=== PATIENT | female | born 1975 | race Caucasian/White ===

== ENCOUNTER 2021-03-05 11:14 | Emergency (ER) | payer BC, SELFPAY ==
[2021-03-05 11:24] VITALS: BP 133/89; PULSE 109; RESP 12; TEMP 36.8; O2SAT 100
--- NOTE | 2021-03-05 11:43 | ED.CHESTPAIN ---
HPI - Chest Pain General Chief Complaint: Chest Pain Stated Complaint: Rib Pain Time Seen by Provider: 03/05/21 11:43 Source: patient and RN notes reviewed Mode of arrival: ambulatory Limitations: no limitations History of Present Illness HPI narrative: Problems a 46-year-old female patient [facility] Patient states she is having rib pain bilaterally which increases with a deep breath. Patient states she had sinus issues and cough for 2 weeks and that has resolved. Patient denies denies any injury to the rib area. Patient denies any chest pain ;denies any shortness of breath. Patient can speak in full sentences. MD complaint: chest pain Related Data Home Medications Medication Instructions Recorded Confirmed amitriptyline 25 mg PO DAILY 03/05/21 03/05/21 buspirone 15 mg PO BID 03/05/21 03/05/21 cyclobenzaprine 10 mg PO TID 03/05/21 03/05/21 furosemide 20 mg PO DAILY 03/05/21 03/05/21 hydrocodone-acetaminophen 1 tablet PO QID PRN 03/05/21 03/05/21 metoprolol succinate 25 mg PO DAILY 03/05/21 03/05/21 topiramate 50 mg PO BID 03/05/21 03/05/21 Allergies Allergy/AdvReac Type Severity Reaction Status Date / Time Penicillins Allergy Unknown Rash Verified 03/05/21 11:24 Review of Systems Review of Systems: CONSTITUTIONAL: Denies body aches, fever, chills, or sweats. EYES: Denies visual changes, redness, or discharge. ENT: Denies rhinorrhea, congestion, sore throat, or otalgia. CARDIOVASCULAR: Denies chest pain, palpitations, or edema. RESPIRATORY: Denies cough or dyspnea. GASTROINTESTINAL: Denies abdominal pain, nausea, vomiting, or diarrhea. GENITOURINARY: Denies dysuria or hematuria. SKIN: Denies rash, itching, or wounds. MUSCULOSKELETAL: Denies back pain, joint pain, or myalgia.+ rib pain NEUROLOGIC: Denies headache, numbness, tingling, or weakness. PSYCH: Denies depression or anxiety. All systems reviewed & are unremarkable except as noted in HPI and below Exam Narrative: GENERAL: Well-appearing, well-nourished, and in no acute distress. HEAD: Normocephalic, atraumatic. EYES: EOMI. No redness or drainage. Conjunctivae normal. ENT: Mucous membranes pink and moist. Nares clear. No rhinorrhea. NECK: Normal AROM. Supple. . CHEST: No respiratory distress. Clear to auscultation; no rub noted. HEART: Regular rate and rhythm. No murmur appreciated. Normal peripheral pulses. MUSCULOSKELETAL: No bony tenderness.; pain with palpation on right axillary line; EXTREMITIES: Normal range of motion. No edema. SKIN: Warm, dry, no rash. Capillary refill normal. Normal skin turgor. NEURO: No focal deficits. Alert and oriented x3. Gait steady. PSYCH: Normal affect. No signs of depression or anxiety. Course Vital Signs Vital signs: Vital Signs Temperature 36.8 C 03/05/21 11:24 Pulse Rate 109 H 03/05/21 11:24 Respiratory Rate 12 03/05/21 11:24 Blood Pressure 133/89 03/05/21 11:24 Pulse Oximetry 100 03/05/21 11:24 Temperature 36.8 C 03/05/21 11:24 Pulse Rate 109 H 03/05/21 11:24 Respiratory Rate 12 03/05/21 11:24 Blood Pressure 133/89 03/05/21 11:24 Pulse Oximetry 100 03/05/21 11:24 Reviewed MDM - Chest Pain MDM Narrative Medical decision making narrative: Patient has pain with palpation. Patient has pain with deep inspiration. Lungs are completely clear. Patient patient is afebrile. Patient will be treated for costochondritis with Naprosyn 500 mg twice daily. Patient will also be giving a steroid for 7 days. Patient was agreeable to this plan. Patient was educated to follow-up with her primary care physician for increasing pain in 3 to 5 days. Go to the ER emergently for severe chest pain or any other issues Differential Diagnosis Differential diagnosis: Likely fracture of rib, atypical chest pain and costochondritis Medical Records Data Attestation: I reviewed the patient's medical records. Critical Care Time Critical Care Time Critical Care T
== END 2021-03-05 11:54 | disposition home or self-care (01) ==
PROVIDERS: Emergency Provider Nurse Practitioner Family; PCP Family Medicine
DX: M94.0 Chondrocostal junction syndrome [Tietze] (principal)
CPT/HCPCS: 99213; G0463

== ENCOUNTER 2021-07-31 08:08 | Emergency (ER) | payer BC, SELFPAY ==
[2021-07-31] VITALS (8 sets, daily range): BP systolic 116–143; BP diastolic 73–100; PULSE 91–128; RESP 14–26; TEMP 36.7; O2SAT 92–100
--- NOTE | ~2021-07-31 | XR_ITS ---
EXAMINATION: XR chest 2V DATE: 07/31/2021 08:38 INDICATION: Shortness of breath and cough. Chest tightness. TECHNIQUE: Frontal and lateral views of the chest were obtained. COMPARISON: Chest 2 views 04/23/2018, CT abdomen and pelvis 04/19/2018 FINDINGS: The chest demonstrates clear lungs without pneumonia, pleural effusion, or pneumothorax. Th e heart size is normal. There are old healed right rib fractures. IMPRESSION: 1. No acute cardiopulmonary disease. Reviewed, dictated and finalized at location A.
--- NOTE | 2021-07-31 08:25 | ECG_ITS ---
Measurements Intervals [place] Rate: 111 P: 85 IA: 172 QRS: 78 QRSD: 69 T: 75 QT: 315 QTc: 429 Interpretive Statements SINUS TACHYCARDIA LOW QRS VOLTAGE [QRS DEFLECTION < 0.5/1.0 mV IN LIMB/CHEST LEADS] NONSPECIFIC T-WAVE ABNORMALITY ABNORMAL ECG NO PREVIOUS ECG AVAILABLE FOR COMPARISON Electronically Signed On 07-31-2021 11:22:34 CDT by Pedro Biggs M.D.
--- NOTE | 2021-07-31 08:36 | ED.SOB ---
HPI - SOB/Dyspnea General Chief Complaint: Shortness of Breath/Dyspnea Stated Complaint: SOB Time Seen by Provider: 07/31/21 08:35 Source: patient and family Mode of arrival: ambulatory Limitations: no limitations History of Present Illness HPI Narrative: Patient is 46 years old white female presents with shortness of breath and a productive cough of clear sputum started last night. History of seasonal allergy. Patient on [id number] medication without any improvement. Patient denies any fever, chills, nausea, vomiting, back pain or chest pain. Related Data Home Medications Medication Instructions Recorded Confirmed amitriptyline 25 mg PO DAILY 03/05/21 03/05/21 furosemide 20 mg PO DAILY 03/05/21 03/05/21 hydrocodone-acetaminophen 1 tablet PO QID PRN 03/05/21 03/05/21 metoprolol succinate 25 mg PO DAILY 03/05/21 03/05/21 topiramate 50 mg PO BID 03/05/21 03/05/21 Allergies Allergy/AdvReac Type Severity Reaction Status Date / Time Penicillins Allergy Unknown Rash Verified 07/31/21 08:23 Review of Systems Review of Systems: CONSTITUTIONAL: Denies fever, chills, or sweats. EYES: Denies visual changes, redness, or discharge. ENT: Denies rhinorrhea, congestion, sore throat, or otalgia. CARDIOVASCULAR: Denies chest pain, palpitations, or edema. RESPIRATORY: Productive cough of clear sputum and shortness of breath GASTROINTESTINAL: Denies abdominal pain, nausea, vomiting, or diarrhea. GENITOURINARY: Denies dysuria or hematuria. SKIN: Denies rash or itching. MUSCULOSKELETAL: Denies back pain, joint pain, or myalgia. NEUROLOGIC: Denies headache, numbness, or weakness. PSYCHIATRIC: Denies anxiety or depression. Exam Narrative: General appearance: Well-developed, well-nourished Skin: Normal color Head: Normocephalic, nontraumatic Eyes: Clear conjunctiva ENT: Oropharynx normal, ears normal, nose normal Neck: Supple, nontender Chest and respiratory: Slight diminution of air entry bilaterally, few scattered wheezing Heart: Regular rate/rhythm Abdomen: Soft, nontender, no organomegaly, quiet bowel sounds Vascular: Normal peripheral pulses, normal capillary refill. Musculoskeletal: Normal range of motion, nontender back Neurologic: Alert and oriented ?3, RISK CONTROL DIRECTOR is normal as tested, no gross motor deficit Course Course Emergency Course: Improving Vital Signs Vital signs: Vital Signs Pulse Rate 128 H 07/31/21 08:10 Respiratory Rate 26 H 07/31/21 08:10 Pulse Oximetry 92 07/31/21 08:10 Temperature 36.7 C 07/31/21 08:17 Pulse Rate 91 07/31/21 09:52 Respiratory Rate 14 07/31/21 09:52 Blood Pressure 143/100 H 07/31/21 08:17 Pulse Oximetry 100 07/31/21 08:50 MDM - SOB/Dyspnea MDM Narrative Medical decision making narrative: Seasonal allergies, asthma are my concern. Differential Diagnosis Differential diagnosis: Likely asthma with exacerbation Lab Data Result diagrams: 07/31/21 09:10 07/31/21 09:10 Labs: Lab Results 07/31/21 07/31/21 07/31/21 Range/Units 09:10 09:10 09:10 WBC 6.3 (4.5-10.0) K/mm3 RBC 4.03 L (4.2-5.4) M/mm3 Hgb 13.6 (12.0-15.0) g/dL Hct 41.1 (37.0-47.0) % MCV 102.0 H (80-100) fl MCH 33.7 (26-34) pg MCHC 33.1 (32-36) g/dl RDW 13.1 (11.5-14.5) % Plt Count 275 (150-375) k/mm3 MPV 9.0 (7.4-10.4) fl Immature Gran % (Auto) 0.5 (0-0.5) % Neut % (Auto) 76.7 H (45.5-73.1) % Lymph % (Auto) 11.1 L (18.3-44.2) % [place] % (Auto) 8.6 H (2.6-8.5) % Eos % (Auto) 2.1 (0-4.4) % Baso % (Auto) 1.0 (0.2-1.2) % Lymph # (Auto) 0.70 L (0.9-3.2) K/mm3 [place] # (Auto) 0.5 (0.1-0.6) K/mm3 Eos # (Aut
[2021-07-31] MEDS: IPRATROPIUM BR 0.02% INH SOLN 0.5 MG/2.5 ML VIAL INHALATION (08:57)
[2021-07-31] MEDS: ALBUTEROL SULFATE NEB 2.5 MG/3 ML INH 1.25 MG INHALATION (08:58)
[2021-07-31 09:24] LABS: Basophils Absolute Auto 0.1 K/mm3 (0.0-0.1); Eosinophils Absolute Auto 0.1 K/mm3 (0-0.3); Eosinophils Percent Auto 2.1 % (0-4.4); Hematocrit 41.1 % (37.0-47.0); Hemoglobin 13.6 g/dL (12.0-15.0); Immature Granulocyte Absolute 0.03 K/mm3 (0.00-0.031); Immature Granulocyte Percent A 0.5 % (0-0.5); Lymphocytes Percent Auto 11.1 % (18.3-44.2); Mean Corpuscular HGB Conc 33.1 g/dl (32-36); Mean Corpuscular Hemoglobin 33.7 pg (26-34); Monocytes Absolute Auto 0.5 K/mm3 (0.1-0.6); Monocytes Percent Auto 8.6 % (2.6-8.5); Neutrophils Absolute Auto 4.8 K/mm3 (1.3-6.7); Neutrophils Percent Auto 76.7 % (45.5-73.1); Platelet Count Result 275 k/mm3 (150-375); Red Blood Count 4.03 M/mm3 (4.2-5.4); Red Cell Distribution Width 13.1 % (11.5-14.5); White Blood Count 6.3 K/mm3 (4.5-10.0)
[2021-07-31 09:36] LABS: Alanine Aminotransferase 9 U/L (4-35); Albumin Level 4.2 g/dL (3.5-5.1); Alkaline Phosphatase 93 U/L (38-126); Anion Gap 7 mmol/L (8-16); Aspartate Amino Transferase 30 U/L (14-36); Bilirubin,Total 0.5 mg/dL (0.2-1.3); Blood Urea Nitrogen 11 mg/dL (7-17); Calcium 8.6 mg/dL (8.4-10.2); Carbon Dioxide 23 mmol/L (22-30); Chloride 104 mmol/L (98-107); Estimated CRCL calculation 89 ml/min; Estimated Glomerular Filt Rate > 60; Glucose 116 mg/dL (65-110); Sodium 134 mmol/L (137-145)
[2021-07-31 09:36] LABS: Base Excess ABG -4.2 mEq/l (+/-2.0); Carboxyhemoglobin 0.5 % THb (0-2.0); Fractional Inspired Oxygen 21 %; HCO3 ABG 20.8 mEq/l (22.0-26.0); Methemoglobin ABG 0.2 %THb (0-1.5); Oxygen Content ABG 17.7 %vol (16.0-22.0); Oxygen Saturation ABG 90.9 % (95.0-100.0); Oxyhemoglobin 89.9 % THb (90.0-100.0); PO2 ABG 61.9 mmHg (80.0-100.0); PO2 FiO2 Ratio Arterial Blood 2.95 %; Reduced Hemoglobin 9.4 %THb (0-5.0); pH ABG 7.356 (7.350-7.450)
[2021-07-31 09:40] LABS: D Dimer 0.28 ug/mL (<0.48)
[2021-07-31 09:40] LABS: Device ROOM AIR; Modified Allen's Test Pass; Site Drawn RIGHT RADIAL
[2021-07-31 09:46] LABS: NT Pro B Type Natriuretic Pept 451 pg/mL (5-100); Troponin I < 0.012 ng/mL (0.000-0.034)
[2021-07-31] MEDS: ALBUTEROL SULFATE NEB 2.5 MG/0.5 ML INH 5 MG INHALATION (09:53)
[2021-07-31] MEDS: predniSONE 20 MG TABLET 60 MG PO (09:58)
== END 2021-07-31 10:52 | disposition home or self-care (01) ==
PROVIDERS: Emergency Provider Emergency Medicine; PCP Family Medicine
DX: J45.901 Unspecified asthma with (acute) exacerbation (principal); R00.0 Tachycardia, unspecified; R94.31 Abnormal electrocardiogram [ECG] [EKG]
CPT/HCPCS: 36415; 36600; 71046; 80053; 82375; 82805; 83050; 83880; 84484; 85025; 85380; 93005; 94640; 99285; J7512

== ENCOUNTER 2021-11-18 09:30 | Outpatient (CLI) | payer BC, SELFPAY ==
--- NOTE | ~2021-11-18 | XR_ITS ---
XR lumbar spine min 4V DATE: 11/18/2021 10:44 INDICATION: Back pain TECHNIQUE: AP, lateral, standing flexion and extension lateral views COMPARISON: 02/15/2012 lumbosacral spine FINDINGS: There is osteopenia. Moderately severe loss of interspace height at L4-5. Severe degenerative disc disease at L5-S1. L1-2, L2-3 and L3-4 interspaces are relatively preserved. No fracture or bone destruction or spondylolisthesis or instability on flexion or extension The lumbar pedicles are intact. The sacral iliac joints are normal. IMPRESSION: Prominent degenerative disc disease at L4-5 and L5-S1 Reviewed, dictated and finalized at location B.
--- NOTE | ~2021-11-18 | MR_ITS ---
EXAMINATION: MR lumbar spine wo/w con DATE: 11/18/2021 10:34 INDICATION: Low back pain radiating to the right leg. TECHNIQUE: Magnetic resonance imaging (MRI) of the lumbar spine was performed without and with 13 mL MultiHance intravenous contrast. COMPARISON: Lumbar spine MRI 05/19/2014, radiographs 11/18/2021 FINDINGS: There is 3 mm retrolisthesis of L4 on L5 and L5 on S1. Vertebral body heights are normal. T here is moderately decreased disc height at L4-L5 and severely decreased disc height at L5-S1 with en dplate remodeling. The distal spinal cord signal intensity is normal. The conus medullaris is at L1. The following disc levels are specifically discussed: L1-L2: The disc does not extend beyond the endplate margin. There is mild bilateral facet joint osteo arthritis. There is no neural foraminal stenosis. There is no central canal stenosis. L2-L3: The disc does not extend beyond the endplate margin. There is mild bilateral facet joint osteo arthritis. There is no neural foraminal stenosis. There is no central canal stenosis. L3-L4: There is a left foraminal protrusion. There is mild bilateral facet joint osteoarthritis. Ther e is mild left neural foraminal stenosis. There is no central canal stenosis. L4-L5: The disc is bulging and has an annular fissure. There is mild bilateral facet joint osteoarthr itis. There is mild bilateral neural foraminal stenosis. There is mild central canal stenosis. L5-S1: The disc is bulging and has an annular fissure. There is mild bilateral facet joint osteoarthr itis. There is mild right and moderate left neural foraminal stenosis. There is mild central canal st enosis. IMPRESSION: 1. Severe lower lumbar spondylosis, worsened from 05/19/2014. Reviewed, dictated and finalized at location A.
== END 2021-11-18 09:31 | disposition home or self-care (01) ==
PROVIDERS: PCP Family Medicine; Visit Provider Neurological Surgery
DX: M54.9 Dorsalgia, unspecified (principal); M51.36 Other intervertebral disc degeneration, lumbar region; M47.816 Spondylosis without myelopathy or radiculopathy, lumbar region
CPT/HCPCS: 72110; 72158; A9577

== ENCOUNTER 2021-12-22 12:38 | Outpatient (CLI) | payer BC, SELFPAY ==
--- NOTE | ~2021-12-22 | MR_ITS ---
EXAMINATION: MR thoracic spine wo con DATE: 12/22/2021 13:18 INDICATION: Chronic back pain. TECHNIQUE: Magnetic resonance imaging (MRI) of the thoracic spine was performed without intravenous c ontrast. Sagittal localizer T1-weighted FSE of the cervical spine was obtained. Thoracic spine sequen vinnie included sagittal T2-weighted FSE, sagittal T1-weighted FSE, sagittal T2-weighted FS FSE, and axi al T2-weighted FSE. COMPARISON: Chest 2 views 07/31/2021 FINDINGS: There is 5 degrees levocurvature of upper thoracic spine. There is mild chronic height loss of C7-T2 vertebral bodies. Intervertebral disc heights are normal. The discs do not extend beyond th e endplate margins. There is multilevel mild facet joint osteoarthritis. No neural foraminal stenosis or central canal stenosis. The spinal cord signal intensity is normal. The conus medullaris is at T1 2. IMPRESSION: 1. Mild thoracic facet joint osteoarthritis. Reviewed, dictated and finalized at location A.
== END 2021-12-22 12:39 | disposition home or self-care (01) ==
PROVIDERS: PCP Family Medicine; Visit Provider Nurse Practitioner Family
DX: G89.29 Other chronic pain (principal); M85.88 Other specified disorders of bone density and structure, other site
CPT/HCPCS: 72146

== ENCOUNTER 2021-12-28 09:02 | Outpatient (CLI) | payer BC, SELFPAY ==
--- NOTE | ~2021-12-28 | CT_ITS ---
EXAMINATION: CT lumbar spine wo con DATE: 12/28/2021 09:35 INDICATION: Low back pain. TECHNIQUE: Computed tomography (CT) of the lumbar spine was performed without intravenous contrast. A utomated exposure control and iterative reconstruction technique were employed. The dose-length produ ct was 281.65 mGy-cm. COMPARISON: Lumbar spine MRI 11/18/2021 FINDINGS: There is 3 degrees levocurvature of lumbar spine. Vertebral body heights are normal. There is mildly decreased disc height at L3-L4 and severely decreased disc height at L4-L5 and L5-S1. The f ollowing disc levels are specifically discussed: L1-L2: The disc does not extend beyond the endplate margin. There is mild bilateral facet joint osteo arthritis. There is no neural foraminal stenosis. There is no central canal stenosis. L2-L3: The disc does not extend beyond the endplate margin. There is mild bilateral facet joint osteo arthritis. There is no neural foraminal stenosis. There is no central canal stenosis. L3-L4: The disc is bulging. There is mild bilateral facet joint osteoarthritis. There is mild bilater al neural foraminal stenosis. There is no central canal stenosis. L4-L5: The disc is bulging. There is mild bilateral facet joint osteoarthritis. There is mild bilater al neural foraminal stenosis. There is mild central canal stenosis. L5-S1: The disc is bulging. There is moderate bilateral facet joint osteoarthritis. There is mild rig ht and moderate left neural foraminal stenosis. There is mild central canal stenosis. IMPRESSION: 1. Severe lower lumbar spondylosis, stable from 11/18/21. Reviewed, dictated and finalized at location A.
== END 2021-12-28 09:03 | disposition home or self-care (01) ==
LOC: ANHIMG 09:04
PROVIDERS: PCP Family Medicine; Visit Provider Neurological Surgery
DX: M47.817 Spondylosis without myelopathy or radiculopathy, lumbosacral region (principal); M48.07 Spinal stenosis, lumbosacral region
CPT/HCPCS: 72131

== ENCOUNTER 2023-02-08 09:00 | Outpatient (RCR) | payer BC, SELFPAY ==
--- NOTE | 2022-11-16 13:35 | OPREHPOC ---
Outpatient Therapy Plan of Care This is a Multidisciplinary Plan of Care that may contain components documented by all disciplines (PT, OT, and ST.) PT Problem 1 PT Problem #1 Knowledge Deficit PT Goal 1 Goal Independent with HEP Target Visit 6 PT Problem 2 PT Problem #2 Pain PT Goal 1 Goal centralize pain up to the knee or higher Target Visit 6 PT Problem 3 PT Problem #3 Impaired Strength PT Goal 1 Goal LUDWIN LE 5/5 hips Target Visit 6
--- NOTE | 2022-11-16 13:35 | PTOPEVAL1 ---
Assessment and note entered by Tavon Cabrera, PT Evaluation Information Assessment Status Evaluation Diagnosis S/P lumbar microdiscectomy Onset 08/03/22 Subjective Information Patient reports having her second discectomy on (first surgery in 2014). Patient states she was told to avoid all lifting bending, twisting, exercises for 12 weeks post surgery. Patient still reports issues with the RLE she attributes to the back. Patient has slowly started doing more activity recently including going to [employer], but only doing the swings, wave pool, and log flume. Patient has also been doing some activity in her pool she remembers doing prior during aquatic therapy at [facility]. 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 Reported Pain Level Pain Score 3: Self Report Assessment PT Clinical Summary Gerardo is a 47 year old female coming into the clinic with a diagnosis of lumbar microdiscectomy. Patient has radiating pain going down the R LE and inability to for prolonged time. Patient has tightness in her low back along with weakness in her core and hips. Recommend starting on aquatic therapy to work on strengthening and stretching with reduced stress on the back secondary to the buoyancy of the water in the pool. Progress to land therapy if able Plan of Care Interventions Aquatic Therapy,Electrical Stimulation,Gait Training,Hot Pack/Cold Pack,Manual Therapy,Neuro Re-education,Patient/Caregiver EducatiON,Therapeutic Activities,Therapeutic Exercise,Ultrasound Other Interventions cupping, taping, IASTM PT Services Indicated Yes Treatment Frequency and 1-2x/wk for 6 visits Duration These treatments will address the objective and functional deficits as defined above. The patient will be advanced safely and appropriately in order for the patient to progress towards his/her prior level of function. Additional exercises will be introduced and as well as a comprehensive home exercise program upon discharge, if needed, ?to ensure carryover of functional gains achieved in the clinic. This treatment plan has been reviewed and agreement upon by the patient.
--- NOTE | 2022-12-05 10:24 | PCPTNOTE ---
Patient did not show up for scheduled appointment this date. Called patient at [phone] and left voicemail to call us back if wanting to reschedule reassessment if not heard from in a week will discharge patient.
--- NOTE | 2022-12-12 11:58 | PTOPPROG ---
Assessment and note entered by Tavon Cabrera, PT Evaluation Information Assessment Status Progress Diagnosis status post lumbar microdiskectomy Onset 08/03/22 Subjective Information Patient reports she feels better than before the surgery, but was hopeful she would feel a lot better. 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 Patient has not been doing her aquatic therapy consistently secondary to temperature and weather issues at her pool at home. Patient curious about starting land therapy, but is leery. Told patient to talk to her doctor tomorrow and she what they recommend and we can adjust after that. Assessment PT Clinical Summary Gerardo is a 47 year old female coming into the clinic with a diagnosis of lumbar microdiscectomy. Patient was evaluated on 11/16/22 and has attended 4 sessions. Patient has increased her strength and reports being able to work for three hours where prior to therapy she reports only able to do standing for 45 minutes at a time. Patient reports getting massages and doing some amusement park rides. Would like to transition her from aquatic to land based therapy if okay with the doctor. Plan of Care Interventions Aquatic Therapy,Electrical Stimulation,Gait Training,Hot Pack/Cold Pack,Manual Therapy,Neuro Re-education,Patient/Caregiver Education,Therapeutic Activities,Therapeutic Exercise,Ultrasound Other Interventions cupping, taping, IASTM PT Services Indicated Yes Treatment Frequency and 1-2 times a week for 8 visits Duration These treatments will address the objective and functional deficits as defined above. The patient will be advanced safely and appropriately in order for the patient to progress towards his/her prior level of function. Additional exercises will be introduced and as well as a comprehensive home exercise program upon discharge, if needed, ?to ensure carryover of functional gains achieved in the clinic. This treatment plan has been reviewed and agreement upon by the patient.
--- NOTE | 2023-01-04 10:40 | PCPTNOTE ---
Pt arrived to appt today however is struggling emotionally due to initiation of a divorce.
--- NOTE | 2023-01-16 11:05 | OPREHPOC ---
Outpatient Therapy Plan of Care This is a Multidisciplinary Plan of Care that may contain components documented by all disciplines (PT, OT, and ST.) PT Problem 1 PT Problem #1 Knowledge Deficit PT Goal 1 Goal Independent with HEP Target Visit 12 Progress Partially Met Comment 01-16-23 progress met goal continue to progress education PT Problem 2 PT Problem #2 Pain PT Goal 1 Goal centralize pain up to the knee or higher Target Visit 12 Progress Not Met PT Goal 2 Goal decrease pain to no more than 5/10 Target Visit 12 Progress Not Met Comment 01-16-23 progress not met; NEW GOALS: 1* pain rating at worst of 5/10 2* self assessment Oswestry score of 45% limitation 3* pain into R LE to knee at worst PT Problem 3 PT Problem #3 Impaired Strength PT Goal 1 Goal LUDWIN LE 5/5 hips Target Visit 6 Progress Partially Met Comment improved to 4+/5 PT Goal 2 Progress Not Met Comment 01-16-23 progress NEW GOALS 1* single leg standing R x 15 seconds 2* single leg standing L x 15 seconds 3* 20 reps of prone and side lying hip exercises PT Problem 4 PT Problem #4 Impaired Functional Mobil PT Goal 1 Goal be able to tolerate land therapy. Target Visit 12 Progress Met Comment 01-16-23 progress met goal- discontinue problem
--- NOTE | 2023-01-16 11:05 | PTOPPROG ---
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; walk for fitness ~ 1/4 mile 2x/day; is closing her pool at home; is frustrated with her pain and not able to work and do things; need to continue with therapy; PAIN range in the past week of 5-9/10; into R leg to lateral mid calf- intermittent; burning over R sacral area with sleeping, awaken due to pain 2-3 x/night increase pain: standing/walk 1 & 1/2 hours; decrease pain: stretching, prescription pain meds- hydrocodone 1/2 tab, trying to cut back; home stim; use heat/ice PRN Oswestry self assessment functional score of 56% limitation in activity level; Assessment PT Clinical Summary Gerardo has received 7 PT sessions- on land and in the water. She did not show for 1 and call/cancel 1 appointments. 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 The goals were partially met. Continue PT treatment on land, to further increase trunk and hip strength and use of modalities to decrease pain and progress education for HEP and posture/body mechanics. Plan of Care Interventions Manual Therapy,Neuro Re-education,Patient/ Caregiver Educati,Therapeutic Activities, Therapeutic Exercise,Ultrasound,Other Other Interventions taping, IASTM PT Services Indicated Yes Treatment Frequency and 2x/wk for 3 weeks Duration These treatments will address the objective and functional deficits as defined above. The patient will be
--- NOTE | 2023-02-08 09:49 | PTOPDC ---
Assessment and note entered by Kymberly Liu, PT Evaluation Information Assessment Status Discharge Diagnosis status post lumbar microdiscectomy Onset 08/03/22 Subjective Information feel like she is better, getting stronger; still have problems with balance due to R leg weak; able to stand and work 2-3 hours at time;is walking for fitness about 20 minutes; doing the exercises at home and trying to do more for arm strengthening--have [employer] at home, use for arms and legs; feel like ready to be done with therapy; return to her surgeon in March; Reported Pain Level Pain Score Self Report Additional Pain Score Comments pain range in the past week -10/23, low back and into R LE to toes--intermittent 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 She did not show for 1 and called/ canceled 1 appointment. Compared to the last reassessment: pain rating from 5-9 to 3-7/10; continues to have intermittent pain into R LE- to toes; pain continues to awaken her from sleep about 2x/night; reported standing/walking time increased from 1& 1/2 hr to 2-3 hours; increased strength of LE with mat exercises and single leg standing time R and L LE; 2 minute walking test distance of 495' without reports of pain increase; Oswestry self assessment functional limitation from 56 to 40% limitation in activity level. Education for home exercises, posture and positioning. The goals were partially met. Discharge PT services; she is to continue with the HEP and continue to increase her activity level as tolerated. Plan of Care PT Services Indicated No
== END 2023-02-08 11:14 | disposition home or self-care (01) ==
LOC: ANHPT 09:00
PROVIDERS: PCP Family Medicine; Visit Provider Neurological Surgery
DX: Z98.890 Other specified postprocedural states (principal)
CPT/HCPCS: 97014; 97110; 97113; 97140; 97161; 97530; 99199; G0283

== ENCOUNTER 2024-01-23 17:19 | Emergency (ER) | payer BC, SELFPAY ==
--- NOTE | ~2024-01-23 | XR_ITS ---
CHEST RADIOGRAPH CLINICAL HISTORY: SOB, leg swelling . COMPARISON: 07/31/2021 TECHNIQUE: Single portable view of the chest. FINDINGS The cardiomediastinal silhouette is unremarkable. The lungs are clear. Visualized osseous structures and soft tissues are unremarkable. IMPRESSION: No focal infiltrate or effusion. Reviewed, dictated and finalized at location A.
[2024-01-23 17:26] VITALS: BP 104/58; PULSE 101; RESP 18; TEMP 36.1; O2SAT 95
--- NOTE | 2024-01-23 19:55 | ECG_ITS ---
Test Date: 2024-01-23 20:42:24 Measurements Intervals [place] Rate: 77 P: 71 MT: 196 QRS: 26 QRSD: 81 T: 70 QT: 404 QTc: 458 Interpretive Statements SINUS RHYTHM LOW QRS VOLTAGE [QRS DEFLECTION < 0.5/1.0 mV IN LIMB/CHEST LEADS] POSSIBLE ANTERIOR MYOCARDIAL INFARCTION , PROBABLY OLD [30 ms Q WAVE IN V3/V4, OR R < 0.2 mV IN V4] ABNORMAL ELECTROCARDIOGRAM No previous ECG available for comparison Electronically Signed On 01-24-2024 07:54:42 CDT by Micky Manzano M.D.
[2024-01-23 19:59] VITALS: O2SAT 98
[2024-01-23 20:00] VITALS: BP 138/72; PULSE 83; RESP 22; TEMP 36.8; O2SAT 100
--- NOTE | 2024-01-23 20:02 | ED.EXTPRO ---
HPI - Extremity Problem General Chief complaint: Extremity Problem,Nontraumatic Stated complaint: feet swelling Time Seen by Provider: 01/23/24 19:50 History of Present Illness HPI Narrative: 41-year-old female presents emergency department for evaluation for lower extremity swelling. Patient does have history of CHF. Patient states that she felt her lower legs were more swollen today particularly the ankles. Patient denies any chest pain. Patient denies any current shortness of breath. Patient states she did call her primary care physician and the nurse advised that she present to the emergency department. Patient was initially reluctant but ultimately did agree to come to the ED. Upon arrival emergency department patient states she does feel improved. Patient states her leg swelling has improved patient denies any current shortness of breath. At time of evaluation patient is well-appearing and appears to be in no distress. Admit to drinking alcohol today and does have some rapid speech. Related Data Home Medications Medication Instructions Recorded Confirmed amitriptyline 25 mg tablet 25 mg PO DAILY 03/05/21 02/03/22 furosemide 20 mg tablet 20 mg PO DAILY 03/05/21 02/03/22 hydrocodone 7.5 mg-acetaminophen 1 tablet PO QID PRN Pain 03/05/21 02/03/22 325 mg tablet metoprolol succinate 25 mg 25 mg PO DAILY 03/05/21 02/03/22 tablet,extended release 24 hr topiramate 50 mg tablet 50 mg PO BID 03/05/21 02/03/22 Allergies Allergy/AdvReac Type Severity Reaction Status Date / Time Penicillins Allergy Unknown Rash Verified 02/03/22 09:54 Review of Systems Review of Systems: All systems reviewed & are unremarkable except as noted in HPI and below PMFSH Past Medical History Medical History Allergies Anxiety CHF (congestive heart failure) Chronic headaches Surgical History Surgical History S/P diskectomy Social History Social History Smoking status: Current every day smoker Tobacco type: cigarettes Alcohol intake: current Substance use: never Substance use type: does not use Living arrangements: with family Exam Narrative: APPEARANCE: Well appearing, no pain, no distress, well-nourished. HEAD: normocephalic, atraumatic. EYES: PERRLA/EOMI, conjunctivae clear. NOSE: Normal no drainage EARS:TMS clear with good light reflex. THROAT: Pharynx clear, no exudate. NECK: Supple. No adenopathy, no masses. RESPIRATORY: Airway patent, respirations nonlabored. Clear to auscultation bilaterally, no rales, rhonchi, wheezing. CARDIOVASCULAR: Regular rate and rhythm without murmurs rubs or gallops. ABDOMINAL: Soft, nontender, nondistended, normal bowel sounds MUSCULOSKELETAL: Moves all extremities. Strength/ROM intact, No edema, No calf tenderness. NEURO: Alert. Cranial nerves II through XII intact. Good gait. Good coordination SKIN: Warm, dry. Normal Color Course Course Emergency Course: Patient felt improved and was discharged to home with instructions for outpatient follow-up Vital Signs Vital signs: Vital Signs Temperature 97 F L 01/23/24 17:26 Pulse Rate 101 H 01/23/24 17:26 Respiratory Rate 18 01/23/24 17:26 Blood Pressure 104/58 L 01/23/24 17:26 Pulse Oximetry 95 01/23/24 17:26 Temperature 98.2 F 01/23/24 20:00 Pulse Rate 83 01/23/24 20:00 Respiratory Rate 22 H 01/23/24 20:00 Blood Pressure 138/72 01/23/24 20:00 Pulse Oximetry 100 01/23/24 20:00 Oxygen Delivery Room Air 01/23/24 19:59 MDM - Extremity (Nontraumatic) MDM Narrative Medical decision making narrative: 49-year-old female presented to the emergency department for evaluation for lower extremity swelling that has since improved. Patient does have history of CHF and has been taking medications. Patient denies any current lion
[2024-01-23 20:27] LABS: Basophils Absolute Auto 0.1 K/mm3 (0.0-0.1); Eosinophils Absolute Auto 0.1 K/mm3 (0-0.3); Eosinophils Percent Auto 2.2 % (0-4.4); Hematocrit 33.9 % (37.0-47.0); Hemoglobin 11.4 g/dL (12.0-15.0); Immature Granulocyte Absolute 0.02 K/mm3 (0.00-0.031); Immature Granulocyte Percent A 0.4 % (0-0.5); Lymphocytes Absolute Auto 1.48 K/mm3 (0.9-3.2); Lymphocytes Percent Auto 29.8 % (18.3-44.2); Mean Corpuscular HGB Conc 33.6 g/dl (32-36); Mean Corpuscular Hemoglobin 37.7 pg (26-34); Mean Corpuscular Volume 112.3 fl (80-100); Mean Platelet Volume 8.5 fl (7.4-10.4); Monocytes Absolute Auto 0.4 K/mm3 (0.1-0.6); Monocytes Percent Auto 7.3 % (2.6-8.5); Neutrophils Absolute Auto 2.9 K/mm3 (1.3-6.7); Neutrophils Percent Auto 59.3 % (45.5-73.1); Nucleated Red Blood Cells Perc 0.4 % (0.0-0.2); Platelet Count Result 254 k/mm3 (150-375); Red Blood Count 3.02 M/mm3 (4.2-5.4); Red Cell Distribution Width 15.9 % (11.5-14.5)
[2024-01-23 20:37] LABS: Ethanol 87 mg/dL (<10); Macrocytosis 1+ (NORMAL); Platelet Estimate Adequate (Adequate); Schistocytes None Seen; Stomatocytes 1+
[2024-01-23 20:38] LABS: Alanine Aminotransferase 27 U/L (6-35); Albumin Level 3.4 g/dL (3.5-5.1); Alkaline Phosphatase 151 U/L (38-126); Anion Gap 6 mmol/L (4-12); Aspartate Amino Transferase 99 U/L (14-36); Bilirubin,Total 0.5 mg/dL (0.2-1.3); Blood Urea Nitrogen 4 mg/dL (7-17); Calcium 8.3 mg/dL (8.4-10.2); Carbon Dioxide 27 mmol/L (22-30); Chloride 104 mmol/L (98-107); Estimated CRCL calculation 74 ml/min; Estimated Glomerular Filt Rate > 60; Glucose 87 mg/dL (65-110); Potassium 3.1 mmol/L (3.4-5.0); Sodium 137 mmol/L (137-145)
[2024-01-23 20:39] LABS: Prothrombin Time 13.1 Seconds (11.1-14.7)
[2024-01-23 20:40] LABS: Partial Thromboplastin Time 26.8 Seconds (22.3-36.8)
[2024-01-23 20:46] LABS: NT Pro B Type Natriuretic Pept 227 pg/mL (19.9-100)
[2024-01-23 21:08] LABS: Add Urine Microscopic? YES; Appearance Urine Cloudy (Clear); Bacteria Urine 4+ /hpf; Bilirubin Urine Negative (Negative); Blood Urine Negative (Negative); Color Urine Yellow (Yellow); Glucose Urine UA Negative (Negative); Ketones Urine Negative (Negative); Leukocyte Esterase Ur 3+ LEU/UL (Negative); Nitrate Urine Negative (Negative); Non Pathogenic Casts 0-2; Protein Urine Negative (Negative); RBC Urine 0-2 /hpf (0-2); Specific Grav Ur 1.009 (1.001-1.035); Squamous Epithelial Cell Urine Occasional /hpf (Few); WBC Urine 21-50 /hpf (0-3); pH Urine 6.5 (5.0-9.0)
== END 2024-01-23 21:22 | disposition home or self-care (01) ==
PROVIDERS: Emergency Provider Emergency Medicine; PCP Family Medicine
DX: R22.43 Localized swelling, mass and lump, lower limb, bilateral (principal); F17.210 Nicotine dependence, cigarettes, uncomplicated; F41.9 Anxiety disorder, unspecified; I50.9 Heart failure, unspecified; R82.998 Other abnormal findings in urine
CPT/HCPCS: 36415; 71045; 80053; 81001; 82077; 83880; 85025; 85610; 85730; 87077; 87086; 87186; 93005; 99283

== ENCOUNTER 2024-03-30 21:17 | Emergency (ER) | payer OTHER, BC, SELFPAY ==
--- NOTE | ~2024-03-30 | XR_ITS ---
Left elbow Technique: AP, oblique, and lateral views were obtained. Clinical History: Pain Findings: There is probable subtle displacement of fat pads, compatible small joint effusion. This co uld reflect occult fracture. Impression: Probable small elbow joint effusion, which would suggest underlying occult fracture. No clear fractur e identified radiographically on these images. Reviewed, dictated and finalized at [facility]. 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 No clear fracture identified radiographically on these images.
--- NOTE | ~2024-03-30 | CT_ITS ---
T scan of the left elbow CLINICAL HISTORY: Pain TECHNIQUE: Axial noncontrast imaging of the left elbow was performed. Sagittal and coronal reformatte d images were constructed. Dose reduction technique was used on this scan by utilizing automated expo sure control and iterative reconstruction technique. The dose-length product (DLP) was 370.14 mGy-cm. Findings: There is a nondisplaced fracture of the olecranon, extending to articular surface with the distal humerus. No articular surface step-off. No other fracture or dislocation seen. Small elbow ashlyn nt effusion present. Visualized musculature unremarkable. IMPRESSION: Nondisplaced olecranon fracture. Reviewed, dictated and finalized at location . ANCE DIRECTOR
[2024-03-30 21:19] VITALS: BP 119/73; PULSE 79; RESP 16; TEMP 36.5; O2SAT 100
[2024-03-30 21:59] VITALS: BP 121/88; PULSE 77; RESP 18; O2SAT 100
[2024-03-30] MEDS: HYDROcodone/acetaminophen (*CRX) 10-325 MG TABLET 1 TAB PO (22:53)
--- NOTE | 2024-03-30 23:06 | ED_ITS ---
HPI - Extremity Injury (Upper) General Chief Complaint: Extremity Injury, Upper Stated Complaint: fall I need an xray on the left elbow Time Seen by Provider: 03/30/24 22:36 History of Present Illness HPI narrative: 41-year-old female with a past medical history including CHF presenting to the emergency department for evaluation of left elbow pain as well as bilateral lower extremity swelling. Patient states she was moving a 3000 sq foot house as she recently and has been on her feet around the clock over last few days. She fell 2 days prior and tried to brace herself biotics in her hands. She had immediate pain in her left elbow but did not seek medical attention that time. She did not hit her head or lose consciousness and does not take any blood thinner medications. She states that the swelling her left elbow has gotten worse and hurts in certain positions as well as some associated paresthesias without any actual weakness or numbness. Denies any headache, vision change, back pain, shoulder pain, abdominal pain, no other injuries or trauma. She states her secondary complaint is more chronic and states that her bilateral lower extremities are more swollen but she has a history of CHF is concerned that this could be related. Has recently seen her splitting machine feeder who was overall not too concerned by her leg swelling and referred her back to her PCP with diet modification changes. Related Data Home Medications ?Medication ?Instructions ?Recorded ?Confirmed ?Last Taken ?Type amitriptyline 25 mg tablet 25 mg PO DAILY 03/05/21 02/03/22 Unknown History furosemide 20 mg tablet 20 mg PO DAILY 03/05/21 02/03/22 Unknown History hydrocodone 7.5 mg-acetaminophen 1 tablet PO QID PRN Pain 03/05/21 02/03/22 Unknown History 325 mg tablet metoprolol succinate 25 mg 25 mg PO DAILY 03/05/21 02/03/22 Unknown History tablet,extended release 24 hr topiramate 50 mg tablet 50 mg PO BID 03/05/21 02/03/22 Unknown History Allergies Allergy/AdvReac Type Severity Reaction Status Date / Time Penicillins Allergy Unknown Rash Verified 03/30/24 21:22 Review of Systems Review of Systems: As reviewed above in HPI [facility] Past Medical History Medical History Chronic headaches CHF (congestive heart failure) Anxiety Allergies Surgical History Surgical History S/P diskectomy Social History Social History Smoking status: Current every day smoker Tobacco type: cigarettes Alcohol intake: current Substance use: never Substance use type: does not use Living arrangements: with family Exam Narrative: GENERAL: [Well-appearing, well-nourished, and in no acute distress.] HEAD: [Normocephalic, atraumatic.] EYES: [PERRLA and EOMI.] ENT: Nares clear, no rhinorrhea or epistaxis. Mucous membranes moist. NECK: Supple. CHEST: [Clear to auscultation. No respiratory distress.] HEART: [Regular rate and rhythm]. No murmur heard. [Normal peripheral pulses.] ABDOMEN: [Soft, nondistended], [nontender], [No rigidity or guarding] EXTREMITIES: Restricted range of motion with flexion and extension of the left elbow secondary to pain. She has significant tenderness to palpation over the olecranon process but good photostatic copy maker strength and shoulder mobility. 5/5 strength in the shoulder and wrist. Able to oppose each digit, make a thumbs-up sign, flex extend each digit. No neuropathy or weakness appreciated. Pain reproducible with movement and palpation of the elbow. Swelling located posterior to the olecranon process on the lateral aspect. SKIN: Warm, dry, no rash. NEURO: [No focal deficits]. Alert and oriented [x3.] PSYCH: [Normal mood and affect.] Course Vital Signs Vital signs: Vital Signs Temperature 36.5 C 03/30/24 21:19 Pulse Rate 79 03/30/24 21:19 Respiratory Rate 16 03/30/24 21:19 Blood Pressure 119/73 03/30/24 21:19 Pulse Oximetry 100 03/30/24 21:19 Oxygen Delivery Room Air 03/30/24 21:19 Temperature 36.5 C 03/30/24 21:19 Pulse Rate 88 03/31/24 01:04 Respiratory Rate 18 03/31/24 01:04 Blood Pressure 133/75 03/31/24 01:04 Pulse Oximetry 98 03/31/24 01:04 Oxygen Delivery Room Air 03/30/24 21:59 Procedures Orthopedic Splinting/Casting Injury #1: Splinting/Casting Date: 03/31/24 Splinting/Casting Time: 02:00 Side: left Upper Extremity Injury Location: elbow Splint: customized in ED (posterior long arm fiberglass splint) Pre-Procedure Neuro Vascular Exam: normal Post-Procedure Neuro Vascular Exam: normal MDM - Extremity Injury (Upper) MDM Narrative Medical decision making narrative: 49-year-old female with a history of CHF presenting to the emergency department after mechanical fall while moving furniture. She fell onto her left outstretched upper extremity and had some elbow pain since then. She has some appreciable swelling over the posterior aspect of the olecranon process and is tender to palpation and hurts when we ranged the extremity. She has distal neuro vasculature that is intact and full proximal motor and distal motor function and strength and sensation are intact. Pulses are equal and symmetric. Normal vital signs. Her secondary complaint was that she is having some leg swelling but therapy to be nonpitting edema and chronic and likely related to dependent fluid collections from her moving and being very ambulatory over last few weeks as she has previously seen a splitting machine feeder was not concerned with her leg swelling. Does not appear to be pitting edema or consistent with CHF given her lack of fluid overload status, clear breath sounds, low risk factors. Will obtain x-ray that I independently reviewed and I do not appreciate any obvious displacement but the olecranon appears to maybe have a small potential fracture in it, will obtain CT scan for better delineation. She was provide [place] for analgesia. I independently reviewed patient's x-rays and I do see a linear lucency in the olecranon process which could be a fracture although there are no displacement or any signs of infusion. Or a CT scan without contrast which confirms a nondisplaced fracture of the olecranon process. Overall intact soft tissue without any significant swelling, intact radial head and neck, intact tubercles and coronoid process. I informed the patient of her x-ray findings and our plan going forward will be to place her into a posterior long-arm fiberglass splint and have her follow-up with orthopedics in a sling. She was given pain control medications on discharge and will follow up on outpatient basis. All her questions were answered she was stable for DC at this time. Medical Records Attestation: I reviewed the patient's medical records. Imaging Data Attestation: I personally reviewed and interpreted this imaging study as follows: My impression: Nondisplaced fracture of the olecranon process Discharge Plan Discharge Clinical Impression: Closed olecranon fracture Patient Disposition: Home, Self-Care Condition: Stable Instructions: Antibiotic Form, Arm Fracture in Adults (ED), Elbow Fracture (DC) Additional Instructions: Maintain your splint and sling for comfort, we have given her a short course of medications for pain control be could also take ibuprofen Tylenol for analgesia. Follow-up with Orthopedic surgery. If you have any worsening pain in the extremity or developing any numbness tingling or any concerns in the him please return to the emergency department. Patient Language: Taiwanese Prescriptions: New ibuprofen 600 mg tablet 600 mg PO TID PRN (Reason: pain) Qty: 20 0RF oxycodone 5 mg tablet 5 mg PO Q8H PRN (Reason: pain) Qty: 10 0RF No Action amitriptyline 25 mg tablet 25 mg PO DAILY hydrocodone-acetaminophen 7.5-325 mg tablet 1 tablet PO QID PRN (Reason: Pain) furosemide 20 mg tablet 20 mg PO DAILY metoprolol succinate 25 mg tablet extended release 24 hr 25 mg PO DAILY topiramate 50 mg tablet 50 mg PO BID fluticasone propionate [Flonase Allergy Relief] 50 mcg/actuation spray,suspension 2 spray intranasal DAILY Qty: 18.2 0RF Rx Instructions: administer into each nostril prednisolone sodium phosphate 10 mg tablet,disintegrating 20 mg PO DAILY 5 Days Qty: 10 0RF albuterol sulfate [Ventolin HFA] 90 mcg/actuation HFA aerosol inhaler 2 puff inhalation QID PRN (Reason: shortness of breath or wheezing) Qty: 8.5 0RF Zyrtec 10 mg capsule 10 mg PO DAILY PRN (Reason: allergy symptoms) Qty: 30 0RF Follow-up/Referrals: Franco Lam MD [Physician] - 1 Week (Olecranon fx) Ladarius,Travis Hayes MD [Primary Care Provider] - Time of Disposition: 02:08
[2024-03-31 01:04] VITALS: BP 133/75; PULSE 88; RESP 18; O2SAT 98
[2024-03-31 02:21] VITALS: BP 119/81; PULSE 67; RESP 17; O2SAT 100
--- OUTSIDE RECORDS SUMMARY | 2024-04-05 02:08 | XMS_ITS | Clinical Summary ---
Author Organization [facility] Address [address] [place] [address] Care Team Providers Care Hatch Boss Name Role Phone Haim Sifuentes MD Primary Care Provider [phone] Source Comments [facility],non-owned Affiliates and Associated Physician Practices is amultiple site organization consisting of ambulatory clinics and hospital sitesin [place], [place], [place] and [place]. This disclosure is being madepursuant to the Care Everywhere program and may not contain all information available regarding this patient. Last updated 18.[facility] Social History Tobacco Use Types Packs/Day Years Used Date Smoking Tobacco: Never Assessed Sex and Gender Information Value Date Recorded Sex Assigned at Not on file Gender Identity Not on file Sexual Orientation Not on file Plan of Treatment Health Maintenance Due Date Last Done Comments COLOGUARD (AGES 45-75) - COL ON CA SCREENING 1976 COLON MONITORING 1976 COLONOSCOPY - COLON CA SCREENING 1976 CT COLONOGRAPHY - COLON CA SCREENING 1976 Colorectal Cancer Screening 1976 FIT - COLON CA SCREENING 1976 FLEX SIG - COLON CA SCREENING 1976 LIPID TESTING 1976 MAMMOGRAM 1976 PAP SMEAR 1976 HIV SCREENING 01/06/1991 HEPATITIS C SCREENING 01/02/1994 DTAP/TDAP/TD VACCINES (1 - Tdap) 01/06/1995 HEPATITIS B VACCINE (1 of 3 - 19+ 3-dose series) 01/06/1995 DEPRESSION SCREENING 04/16/2023 COVID-19 VACCINE ( - 2023-2 5 season) 2023 INFLUENZA VACCINE (#1) 2023 ZOSTER VACCINE (1 of 2) 01/06/2026 HIB VACCINE Aged Out No longer eligi ble based on patient's age to complete this topic HPV VACCINE Aged Out No longer eligi ble based on patient's age to complete this topic MENINGOCOCCAL VACCINE Aged Out No rosy sunshine eligible based on patient's age to complete this topic PNEUMOCOCCAL VACCINE Aged Out No long er eligible based on patient's age to complete this topic Care Teams Hatch Boss Relationship Specialty Start Date End Date Haim Sifuentes MD [address] [place] [id number] PCP - General 12/02/12
--- OUTSIDE RECORDS SUMMARY | 2024-04-05 02:08 | XMS_ITS | Data Portability ---
Author Organization [place] - [facility] OFFICE Address [address] [place] [address] Care Team Providers Care Dipper Clock And Watch Hands Name Role Phone DAE TATE Primary Care Provider [phone] Assessment No assessment recorded. Plan of Treatment Reminders Order Date Submit Date Provider Last Modified By Organization Details Last Modified Time Details Appointments None recorded. Lab None recorded. Referral None recorded. Procedures None recorded. Surgeries None recorded. Imaging US, echocardiog [email or web address] 2019 020 [email or web address] Not available 0 09:19:14 Medication Orders Chantix Starting Month Box 0.5 mg (11)-1 mg (42) tablets in dose pack 2019 020 [email or web address] [id number], [address] [place], [place], [id number], 0 09:48:49 Chantix Continuing Month Box 1 mg tablet 2019 020 [facility] #[id number], [address], [place], [id number], 0 09:48:52 Patient TargetsNo targets recorded. Patient Instructions Encounter Date Encounter Id Patient Instructions Last Modified By Organization Details Last Modified Time 07/04/2019 [id number] Exercise advised Low cholesterol diet advised Low sodium diet advised Not available 07/04/2019 11:18:20 Scribed by Tala Doran PA-C Not available 07/04/2019 11:19:56 12/26/2019 [id number] Advised against smoking Exercise advised Low cholesterol diet advised Low sodium diet advised. Not available 12/26/2019 09:43:59 Scribed by Maya Lira, MSN, HEAD SUGAR REPROCESS OPERATOR, GED TEACHER-C Not available 12/26/2019 09:45:04 02/20/2020 [id number] Exercise advised Low cholesterol diet advised Low sodium diet advised [email or web address] Not available 02/20/2020 11:36:28 Scribed by Xin Ram GED TEACHER-BC [email or web address] Not available 02/20/2020 11:41:36 04/05/2021 [id number] Stopping smoking Exercise advised Low cholesterol diet advised Low sodium diet advised. [email or web address] Not available 04/05/2021 11:16:04 10/30/2022 [id number] Advised against smoking Exercise advised Low cholesterol diet advised Low sodium diet advised. [email or web address] Not available 10/30/2022 12:03:15 Reason for Referral None Reported. Results Created Date Observation Date Name Description Value Unit Range Abnormal Flag Note LastModifiedBy Organization Detail LastModifiedTime 12/31/19 20 12/26/2019 elect rocar diogr am No observ ation record ed. [email or web address] Not Available 2019 09:22:36 01/20/20 20 01/09/2020 (ANDREINA) ankle brach ial index * No observ ation record ed. [email or web address] Not Available 2019 15:42:26 02/26/20 20 02/20/2020 elect rocar diogr am No observ ation record ed. [email or web address] Not Available 2019 14:48:02 04/12/20 21 04/05/2021 elect rocar diogr am No observ ation record ed. [email or web address] Not Available 2020 10:28:35 11/01/19 23 10/30/2022 elect rocar diogr am No observ ation record ed. [email or web address] Not Available 2022 09:24:36 11/04/19 23 11/01/2022 , [facility] ardio gram No observ ation record ed. [facility] [address], [place], [address], 11/07/2022 16:57:31 Result Notes None recorded. Problems Name Problem SNOMED Code Status Onset Date Resolution Date Notes Provider Name and Address Organization Details Recorded Time Nausea 342997666 Active 2018 Carly Oteroabi [place] - [facility] 9 04:25:08 Vomiting 214388373 Active 2018 Hala Starr [place] [facility] 9 04:25:16 Diarrhea 13318179 Active 2018 H[place] St[place] [facility] 9 04:25:26 Upper respiratory infection 41101386 Active 2018 H[place] St[place] [facility] 9 04:25:33 Hypokalemia 74820876 Active 2018 H[place] St[place] [facility] 9 04:25:42 Congestive heart failure 36107854 Active 2018 Hailey [place] [facility] 2 15:51:00 Tachyarrhythmi a 6169682 Active 2018 Brandena Starr [place] - [facility] 9 04:26:00 Dyspnea on exertion 66958309 Active 2018 H[place] St[place] [facility] 9 04:28:52 Cardiomyopathy 11773383 Active 2018 Hailey [place] [facility] 2 15:50:53 Essential hypertension 71571586 Active 2018 Hailey [place] [facility] 2 15:51:06 Anxiety 11727834 Active 2018 H[place] [facility] 9 04:32:51 Chronic diastolic heart failure 381668240 Active 2018 Hailey [place] [facility] 2 15:50:56 Allergic rhinitis 77110148 Active 2018 Hailey [place] [facility] 9 17:57:29 Peptic ulcer 30877702 Active 2018 Hailey [place] [facility] 9 17:57:48 Dyslipidemia 232303414 Active 2019 [facility] [place] - [facility] 2 15:51:03 Facial swelling 408330468 Active 2019 Hart Jett [place] [facility] 0 12:57:37 Candidiasis of mouth 87459585 Active 2019 Hart Mes null, [place] - [facility] 0 12:57:44 Atypical chest pain 024820037 Active 2019 [facility] [place] [facility] 0 12:57:50 Problem Notes None recorded. Procedures Surgical History Date Name Laterality Status Provider Name and Address Organization Details Recorded Time delivery completed Christymichelle mckeon [place] - [facility] 05/07/2018 12:47:36 Back Surgery completed Christy Kris [place] - [facility] 05/07/2018 12:47:[address] [facility] - [facility] 08/10/2018 17:58:[address] [facility] - [facility] 08/10/2018 17:58:[address] [facility] - [facility] 08/10/2018 17:59:14 Unlisted procedure spine completed [facility] - [facility] 08/10/2018 18:00:01 Imaging Results Imaging Date Name Status LastModified by Organization Details LastModified Time 12/26/2019 electrocardiogram completed Informa tion not available 12/31/2019 09:22:36 01/09/2020 (ANDREINA) ankle brachial index* completed Information not available 01/20/2020 15:42:26 02/20/2020 electrocardiogram completed Informa tion not available 02/26/2020 14:48:02 04/05/2021 electrocardiogram completed Informa tion not available 04/12/2021 10:28:35 10/30/2022 electrocardiogram completed Informa tion not available 11/01/2022 09:24:36 11/01/2022 US, echocardiogram completed [facility] [address], [place], [address], 11/07/2022 16:57:31 Procedure Notes None recorded. Medical Equipment None Reported. Allergies Allergen ID Allergen Name Allergen Category Reaction Reaction Severity Criticality Documentation Date Start Date Code Code System Note Provider Name and Address Organization Details Recorded Time 7524 Medicinal product containin g penicilli n and acting as antibacte rial agent (product) medicatio n Not available Not available Not available 05/07/2018 52345 05 SNOMED Hala Starr [facility], [facility] 9 04:27:29 9720 lisinopri l medicatio n anaphylax is Not available Not available 07/24/2019 81977 RxNorm thrus h, facia l swell ing, angio edema Vira Owens [facility], [facility] 0 13:21:26 Medications Name Sig Start Date Stop Date Status Note LastModified by Organization Details LastModified Time compound drug SWISH AND SWALLOW 10ML PO QID 04/28 completed Not Available Not Available Not Available cyclobenza jorge 10 mg tablet TAKE 1 TABLET BY MOUTH THREE TIMES DAILY active Not Available Not Available No t Available nystatin 100,000 unit/mL oral suspension TAKE 5ML BY MOUTH FOUR TIMES DAILY. SWISH AND SPIT active Not Available Not Available No t Available clonidine HCl 0.1 mg tablet TAKE 1 TABLET BY MOUTH TWICE DAILY FOR 3 DAYS active Not Available Not Available No t Available clindamyci n HCl 300 mg capsule TAKE 1 CAPSULE BY MOUTH EVERY 6 HOURS UNTIL ALL TAKEN 04/05 completed Not Available Not Available Not Available azithromyc in 250 mg tablet TAKE 2 TABLETS BY MOUTH TODAY THEN 1 TABLET EVERY DAY FOR 4 DAYS active pt is no longer taking 10/30/22 SA Not Available Not Available Not Available ibuprofen 800 mg tablet TAKE 1 TABLET BY MOUTH EVERY 6 HOURS NEEDED FOR PAIN active Not Available Not Available No t Available tizanidine 4 mg tablet active Not Available Not Available Not Available fluconazol e 150 mg tablet TAKE 1 TABLET BY MOUTH TODAY THEN 1 TABLET BY MOUTH 3 DAYS LATER active pt is no longer taking 10/30/22 SA Not Available Not Available Not Available hydrocodon e 5 mg-acetami nophen 325 mg tablet TK 1 T PO Q 6 H 04/05 completed Not Available Not Available Not Available prednisone 20 mg tablet TAKE 1 TABLET BY MOUTH DAILY X 5 DAYS active Not Available Not Available No t Available hydrocodon e 10 mg-acetami nophen 325 mg tablet TAKE 1 TABLET BY MOUTH EVERY 6 HOURS active Not Available Not Available No t Available tramadol 50 mg tablet TAKE 1 TO 2 TABLET BY MOUTH EVERY 6 HOURS NEEDED FOR PAIN active Not Available Not Available No t Available acyclovir 800 mg tablet active Not Available Not Available Not Available oxycodone- acetaminop hen 5 mg-325 mg tablet TAKE 1 TO 2 TABLETS BY MOUTH EVERY 4 HOURS FOR UP TO 14 DAYS NEEDED FOR PAIN. MAXIMUM 6 TABLETS DAILY active Not Available Not Available No t Available amitriptyl ine 25 mg tablet TAKE 1 AND 1/2 TABLETS BY MOUTH EVERY NIGHT AT BEDTIME active Not Available Not Available No t Available Aldactone 25 mg tablet Take 1 tablet every day by oral route. 06/11 completed Not Available Not Available Not Available hydrocodon e 7.5 mg-acetami nophen 325 mg tablet TAKE 1 TABLET BY MOUTH EVERY 6 HOURS active Not Available Not Available No t Available prednisone 50 mg tablet TAKE 1 TABLET BY MOUTH DAILY FOR 7 DAYS 04/05 completed Not Available Not Available Not Available omeprazole 20 mg capsule,de layed release TK 1 C PO QD 04/05 completed Not Available Not Available Not Available lisinopril 5 mg tablet Take 1 tablet every day by oral route as directed . 03/26 completed Not Available Not Available Not Available furosemide 20 mg tablet active Not Available Not Available Not Available metoprolol succinate ER 25 mg tablet,ext ended release 24 hr TAKE 1 TABLET BY MOUTH EVERY DAY active Not Available Not Available No t Available methylpred nisolone 4 mg tablets in a dose pack FOLLOW PACKAGE DIRECTIO NS active Not Available Not Available No t Available albuterol sulfate HFA 90 mcg/actuat ion aerosol inhaler INHALE 2 PUFFS BY MOUTH EVERY 4 HOURS NEEDED FOR WHEEZING OR SHORTNES S OF BREATH active Not Available Not Available No t Available topiramate 100 mg tablet active Not Available Not Available Not Available fluticason e propionate 50 mcg/actuat ion nasal spray,susp ension SHAKE LIQUID AND USE 2 SPRAYS IN EACH NOSTRIL DAILY active Not Available Not Available No t Available naproxen 500 mg tablet TAKE 1 TABLET BY MOUTH TWICE DAILY FOR 14 DAYS active Not Available Not Available No t Available buspirone 15 mg tablet active Not Available Not Available Not Available buprenorph ine 8 mg-naloxon e 2 mg sublingual tablet DISSOLVE 1 TABLET UNDER THE TONGUE DAILY FOR 5 DAYS active Not Available Not Available No t Available topiramate 50 mg tablet Take 1 tablet twice a day by oral route as directed . active Not Available Not Available No t Available duloxetine 30 mg capsule,de layed release active Not Available Not Available Not Available pregabalin 75 mg capsule TAKE 1 CAPSULE BY MOUTH TWICE DAILY active Not Available Not Available No t Available magnesium 1 tab OD 04/28 completed Not Available Not Available Not Available lisinopril 07/03 completed Pt takes 5mg Not Available Not Available Not Available potassium 06/11 completed Not Available Not Available Not Available Hydrocodon e 04/15 completed Pt cannot recall dosage; for back pain 02/20/20 SP Not Available Not Available Not Available diclofenac 1 % topical gel APPLY 4G TOPICALL Y TO AFFECTED AREA DIRECTED THREE TIMES DAILY active Not Available Not Available No t Available Chantix Continuing Month Box 1 mg tablet Take 1 tablet twice a day by oral route. 12/25 completed Not Available Not Available Not Available Chantix Starting Month Box 0.5 mg (11)-1 mg (42) tablets in dose pack FOLLOW PACKAGE DIRECTIO NS active Not Available Not Available No t Available naloxone 4 mg/actuati on nasal spray CALL 911. SPR CONTENTS OF ONE SPRAYER (0.1ML) INTO ONE NOSTRIL. REPEAT IN 2-3 MIN IF SYMPTOMS OF OPIOID EMERGENC Y PERSIST, ALTERNAT E NOSTRILS active Not Available Not Available No t Available One Daily Women 50 Plus(Vit K) 04/28 completed Not Available Not Available Not Available Vitals Date Recorded Body height Body mass index (BMI) Body weight Heart rate Respiratory rate Oxygen saturation Oxygen saturation in Arterial blood by Pulse oximetry Systolic blood pressure Diastolic blood pressure Provider Name and Address Organization Details Last Updated DateTime 0 154.94 cm 23.3 kg/m2 58783.2 2 g 81 /min 16 /min 100 % 100 % 118 mm[Hg] 68 mm[Hg] Micky SANTOS - [facility] 0 10:57:42 Date Recorded Body height Body mass index (BMI) Body weight Heart rate Respiratory rate Oxygen saturation Oxygen saturation in Arterial blood by Pulse oximetry Systolic blood pressure Diastolic blood pressure Provider Name and Address Organization Details Last Updated DateTime 0 154.94 cm 21.7 kg/m2 25199.1 2 g 67 /min 18 /min 99 % 99 % 118 mm[Hg] 88 mm[Hg] Vira Owens [facility] 0 09:32:57 Date Recorded Body height Body mass index (BMI) Body weight Heart rate Oxygen saturation Oxygen saturation in Arterial blood by Pulse oximetry Body temperature Systolic blood pressure Diastolic blood pressure Provider Name and Address Organization Details Last Updated DateTime 0 154.94 cm 22.3 kg/m2 72971.9 g 83 /min 98 % 98 % 97.9 [degF] 110 mm[Hg] 86 mm[Hg] Vadim Vasquez i, MD [address] [place], [address], [facility] 0 11:19:23 Date Recorded Body weight Heart rate Oxygen saturation Oxygen saturation in Arterial blood by Pulse oximetry Systolic blood pressure Diastolic blood pressure Provider Name and Address Organization Details Last Updated DateTime 1 24139.7 1 g 106 /min 99 % 99 % 150 mm[Hg] 80 mm[Hg] Carmen Ackermanran [facility] 1 10:44:07 Date Recorded Body height Body mass index (BMI) Body weight Oxygen saturation Oxygen saturation in Arterial blood by Pulse oximetry Heart rate Systolic blood pressure Diastolic blood pressure Provider Name and Address Organization Details Last Updated DateTime 3 154.94 cm 25.2 kg/m2 74334.5 8 g 98 % 98 % 86 /min 116 mm[Hg] 78 mm[Hg] ROSALIND COLEONY [facility] 3 11:43:22 Social History Question Answer Notes LastModified by Organizat ion Details LastModified Time Tobacco Smoking Status Current Every Day Smoker Not Available [facility] 02/17/2020 03:30:41 What Is Your Level Of Alcohol Consumption? Occasional [id number] Information not available 02/17/2020 What Is Your Level Of Caffeine Consumption? Occasional [id number] Information not available 02/17/2020 How Much Tobacco Do You Chew? None [id number] Information not available 02/17/2020 What Type Of Diet Are You Following? REGULAR [id number] Information not available 02/17/2020 Which Illicit Or Recreational Drugs Have You Used? No [id number] Information not available 02/17/2020 Do You Or Have You Ever Used E-cigarettes Or Vape? 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 With Others Information not available 05/07/2018 Marital Status Informatio n not available 05/07/2018 What Was The Date Of Your Most Recent Tobacco Screening? 08/13/2018 [id number] Information not available 02/17/2020 How Many Children Do You Have? 2 [id number] Information not available 02/17/2020 How Much Tobacco Do You Smoke? 0.5 PPD [id number] Information not available 02/17/2020 Sex: Unknown Functional Status Question Answer Note LastModified by Organizat ion Details LastModified Time What is your exercise level? Occasional [id number] Information not available 02/17/2020 Mental Status None recorded. Family History Relationship Description Onset Age of this Age Resolved Age Notes LastModified by Organization Details LastModified Time Mother Diabetes mellitus [email or web address] Not available 2018 12:45:23 Mother Hypertensive disorder [email or web address] Not available 2018 12:45:30 Mother Hyperlipidem ia [email or web address] Not available 2018 12:46:25 Father Muscle weakness [email or web address] Not available 2018 12:46:10 Medical History Condition Response Congenital Heart Disease Y Cardiomyopathy Y Hypertension Y Gynecological HistoryNo gynecological history recorded. Obstetrics History GPAL:G 0 P 0 0 0 0 Past Encounters Encounter ID Performer Location Encounter Start Date Encounter Closed Date Diagnosis/Indication Diagnosis SNOMED-CT Code Diagnosis ICD10 Code [id number] Vadim Matthew MD [facility] [address] [place] [address] 05/07/2018 12:01:27 05/07/2018 12:08:30 Chronic diastolic heart failure 299922540 I50.32 Atypical chest pain 1025 71841 R07.89 Essential hypertension 71157932 I10 History of smoking 78296 59648 9821133 Z87.891 [id number] Vadim Matthew MD [facility] [address] [place] [address] 06/11/2018 11:31:40 06/11/2018 12:56:11 Chronic diastolic heart failure 585084676 I50.32 Atypical chest pain 1025 45555 R07.89 Essential hypertension 49582037 I10 History of smoking 20936 93316 7424472 Z87.891 Anxiety 33518499 F41.9 Dyslipidemia 243611532 E 78.5 [id number] Vadim Matthew MD [facility] [address] [place] [address] 08/13/2018 11:43:24 08/13/2018 13:19:11 Chronic diastolic heart failure 204334916 I50.32 Atypical chest pain 1025 70879 R07.89 Essential hypertension 23133349 I10 History of smoking 16279 32524 5226229 Z87.891 Anxiety 84158785 F41.9 Dyslipidemia 662878912 E 78.5 [id number] Vadim Matthew MD [facility] [place] [address] 03/28/2019 10:24:00 03/29/2019 07:42:41 Chronic diastolic heart failure 627985316 I50.32 Atypical chest pain 1025 91571 R07.89 Essential hypertension 48646692 I10 History of smoking 86128 29559 1504007 Z87.891 Anxiety 85100875 F41.9 Dyslipidemia 828780874 E 78.5 Candidiasis of mouth 797 97974 B37.0 Facial swelling 28011940 6 R22.0 [id number] Vadim Matthew MD [facility] [place] [address] 07/04/2019 10:49:24 07/04/2019 12:27:13 Chronic diastolic heart failure 586782651 I50.32 Essential hypertension 59604412 I10 Anxiety 57685465 F41.9 Dyslipidemia 224935418 E 78.5 Facial swelling 33031382 6 R22.0 Smoker 08216287 F17.200 [id number] Ruby Santizo [facility] [address] [place] [address] 12/26/2019 09:18:30 12/26/2019 10:28:12 Chronic diastolic heart failure 421010842 I50.32 Essential hypertension 56524916 I10 Anxiety 43146590 F41.9 Dyslipidemia 038505108 E 78.5 Facial swelling 02222970 6 R22.0 Smoker 34266586 F17.200 Pain in bi lateral legs 2364201757 2076431 M79.604 M79.605 [id number] Vadim Matthew MD [facility] [address] [place] [address] 02/20/2020 11:01:32 02/20/2020 11:51:11 Chronic diastolic heart failure 460532815 I50.32 Essential hypertension 37897937 I10 Anxiety 86085107 F41.9 Dyslipidemia 369257302 E 78.5 Smoker 87551007 F17.200 Bipolar disorder 1664533 4 F31.9 Dizziness 846017530 R42 [id number] Vadim Matthew MD [facility] [place] [address] 04/05/2021 10:24:28 04/05/2021 11:33:50 Chronic diastolic heart failure 005021821 I50.32 Essential hypertension 93732306 I10 Anxiety 88950765 F41.9 Dyslipidemia 635208621 E 78.5 Smoker 83673119 F17.200 Bipolar disorder 3667166 4 F31.9 Dizziness 054101255 R42 [id number] Vadim Matthew MD [facility] [place] [address] 10/30/2022 10:40:24 10/30/2022 12:10:48 Chronic diastolic heart failure 682180383 I50.32 Essential hypertension 28174366 I10 Anxiety 83307663 F41.9 Dyslipidemia 667736300 E 78.5 Smoker 65187954 F17.200 Bipolar disorder 9912903 4 F31.9 Dizziness 002665805 R42 Health Concerns Section Related Observation LastModified by Organization Detai ls LastModified Time None Recorded Concern Status LastModified by Organization Details LastModified Time None Recorded Advance Directives Directive None Recorded Payers Encounter Date Sequence Insurance Name Policy Number Policy Parson Covered Member ID Parson Member ID Guarantor Name 07/04/2019 1 [place] [id number] Ravi Whitt [id number] Gerardo Whitt 12/26/2019 1 [place] [id number] Ravi Whitt [id number] Gerardo Whitt 02/20/2020 1 [place] [id number] Ravi Whitt [id number] Gerardo Whitt 04/05/2021 1 [place] [id number] Ravi Whitt [id number] Gerardo Whitt 10/30/2022 1 [place] [id number] Ravi Whitt [id number] Gerardo Whitt Notes Date Note Type Note Provider Name and Address Organization Details Recorded Time 07/04/2019 text/html 07/04/19 CC : dyspnea on exertion 44 year-old white female with a PMH of diastolic dysfunction, hypertension, current tobacco dependence, anxiety presents today for follow-up. Patient last visit was 3 months ago. Up 3 lbs. She reports feeling well, is active and exercises. Continues to to have chronic, mild dyspnea on exertion. She continues to smoke. She would like to quit. Had success with Chantix in the past, is interested in starting therapy again. She had a positive Lexiscan and underwent cardiac cath 07/02 which was normal. No chest pain. No shortness of breath at rest. No orthopnea. No PND's. No dizziness. Occasional palpitation. No syncope or near syncope. No leg swelling. No nausea and vomiting. No side effects from medications. *Had ECHO done in 04/23/19 showed normal global systolic function, EF 55-60%, Normal left atrial pressure with grade I diastolic dysfunction. There is mild thickening of mitral valve anterior leaflet. There is mild tricuspid regurgitation. *Had positive stress test done in 06/10/18 with ischemia in inferior area , with normal LV systolic function , EF 50% . *Had CATH done in 07/02/18 revealed No significant coronary artery disease , near normal LV systolic function. *Had ECHO done in 04/19/18 showed normal LV systolic function ,EF 55% , Mitral valve leaflets appear mildly thickened , mild mitral valve prolapse , posterior mitral valve. Results from this visit, or from the past: 06/18/18: TC 171 ,TG 176 ,HDL 85, LDL 61 ,07/02/18: HB 12.8, HT 39.403: PT 12.9, INR 0.97, PTT : Na 144 , K 4.1, CL 108 ,CO2 21, GLU 64, BUN 14, CR 0.6,04/21/18: Na 136, K 4.6, CL 102 , CO2 30, GLU 116, BUN 3, CR 0.60,04/19/18: HB 10.7, HT 32.51/08/02 BMP: NA 136, K 4.6, CH 102, CO2 30, GL 116, B 3, CR 0.6 EKG 08/13/18 : Low voltage , chest leads, Poor R progression in chest leads. EKG 05/07/18 :Abnormality of unclear origin ,Low voltage ,chest leads, Poor R progression in chest leads . TDM stress test 06/10/18-Positive stress test. Reversible defect consistent with ischemia in inferior area. Normal LV systolic function. LVEF 50%. 04/19/18 ECHO: Normal left ventricular systolic function. No focal wall motion abnormalities. Normal ventricular systolic function. Ejection fraction is visually estimated at 55%. Mitral valve leaflets appear mildly thickened. Mild mitral valve prolapse involving the posterior mitral valve. 04/23/18 CHEST 2 VIEW: Negative. Vadim Matthew MD [address] [place], [address], [facility] 07/04/2019 12:27:10 12/26/2019 text/html 12/26/2019 CC : dyspnea on exertion 44 year-old white female with a PMH of diastolic dysfunction, hypertension, current tobacco dependence, anxiety presents today for follow-up. Patient last visit was 6 months ago on 07/04/2019. At that visit she was ready to quit smoking and was started on Chantix. Today she reports feeling well, is active and exercises. Continues to to have chronic, mild dyspnea on exertion. Reports that she checks her BP at home and that her numbers 120's- 140's/70-80s. She had a positive Lexiscan and underwent cardiac cath 07/02 which was normal. No chest pain. No shortness of breath at rest. No orthopnea. No PND's. No dizziness. Occasional palpitation. No syncope or near syncope. No leg swelling. No nausea and vomiting. No side effects from medications. Had ECHO done in 04/23/19 showed normal global systolic function, EF 55-60%, Normal left atrial pressure with grade I diastolic dysfunction. There is mild thickening of mitral valve anterior leaflet. There is mild tricuspid regurgitation. *Had positive stress test done in 06/10/18 with ischemia in inferior area , with normal LV systolic function , EF 50% . *Had CATH done in 07/02/18 revealed No significant coronary artery disease , near normal LV systolic function. *Had ECHO done in 04/19/18 showed normal LV systolic function ,EF 55% , Mitral valve leaflets appear mildly thickened , mild mitral valve prolapse , posterior mitral valve. Results from this visit, or from the past: 06/18/18: TC 171 ,TG 176 ,HDL 85, LDL 61 ,07/02/18: HB 12.8, HT 39.: PT 12.9, INR 0.97, PTT : Na 144 , K 4.1, CL 108 ,CO2 21, GLU 64, BUN 14, CR 0.6,04/21/18: Na 136, K 4.6, CL 102 , CO2 30, GLU 116, BUN 3, CR 0.60,04/19/18: HB 10.7, HT 32.51/08/02 BMP: NA 136, K 4.6, CH 102, CO2 30, GL 116, B 3, CR 0.6 EKG 08/13/18 : Low voltage , chest leads, Poor R progression in chest leads. EKG 05/07/18 :Abnormality of unclear origin ,Low voltage ,chest leads, Poor R progression in chest leads . 04/23/19 ECHO: LV chamber size is normal. There is normal global systolic function and contractility. There is a segmental wall motion abnormality. The estimated left ventricle ejection fraction is 55-60%(normal). Normal left atrial pressure with grade I diastolic dysfunction. There is mild thickening of mitral valve anterior leaflet. There is mild tricuspid regurgitation. TDM stress test 06/10/18-Positive stress test. Reversible defect consistent with ischemia in inferior area. Normal LV systolic function. LVEF 50%. 04/19/18 ECHO: Normal left ventricular systolic function. No focal wall motion abnormalities. Normal ventricular systolic function. Ejection fraction is visually estimated at 55%. Mitral valve leaflets appear mildly thickened. Mild mitral valve prolapse involving the posterior mitral valve. 04/23/18 CHEST 2 VIEW: Negative. Ruby Santizo [facility], [place] - [facility] 01/05/2020 13:57:11 02/20/2020 text/html 02/20/2020 CC : dyspnea on exertion 45 year-old white female with a PMH of diastolic dysfunction, hypertension, current tobacco dependence, anxiety presents today for follow-up, c/o possible stroke Pt last seen 2 months ago on 12/26/19. Today she reports stroke-like symptoms about 4 times. She reports it happened twice in one day about 2 days ago. She reports the episodes feel like dizziness with pain and numbness on her left side. She reports she is still having numbness on her left side presently. She has occasional dizziness and her daughter reports she stumbles when walking from time to time. Her daughter also reports word dissociation. On exam today, she is somewhat erratic but does not appear to have any neuro deficits. Neuro exam is unremarkable. She is slurring her words occasionally with occasional stuttering but it appears to be possibly r/t bipolar disorder. *Had ANDREINA 01/09/20 ANDREINA: Mild peripheral arterial disease of the left lower extremity. She reports she is under very high stress. She reports drinking daily about 1-2 drinks per day. She reports smoking about 1/2 ppd. She had a positive Lexiscan and underwent cardiac cath 07/02 which was normal. No chest pain. No shortness of breath at rest. No orthopnea. No PND's. No palpitation. No syncope or near syncope. No leg swelling. No nausea and vomiting. No side effects from medications. Had ECHO done in 04/23/19 showed normal global systolic function, EF 55-60%, Normal left atrial pressure with grade I diastolic dysfunction. There is mild thickening of mitral valve anterior leaflet. There is mild tricuspid regurgitation. *Had positive stress test done in 06/10/18 with ischemia in inferior area , with normal LV systolic function , EF 50% . *Had CATH done in 07/02/18 revealed No significant coronary artery disease , near normal LV systolic function. *Had ECHO done in 04/19/18 showed normal LV systolic function ,EF 55% , Mitral valve leaflets appear mildly thickened , mild mitral valve prolapse , posterior mitral valve. Results from this visit, or from the past: 06/18/18: TC 171 ,TG 176 ,HDL 85, LDL 61 ,07/02/18: HB 12.8, HT 39.: PT 12.9, INR 0.97, PTT : Na 144 , K 4.1, CL 108 ,CO2 21, GLU 64, BUN 14, CR 0.6,04/21/18: Na 136, K 4.6, CL 102 , CO2 30, GLU 116, BUN 3, CR 0.60,04/19/18: HB 10.7, HT 32.51 BMP: NA 136, K 4.6, CH 102, CO2 30, GL 116, B 3, CR 0.6 12/26/19 EKG: Low voltage, Poor R progression in chest leads.EKG 08/13/18 : Low voltage , chest leads, Poor R progression in chest leads.EKG 05/07/18 :Abnormality of unclear origin ,Low voltage ,chest leads, Poor R progression in chest leads . 04/23/19 ECHO: LV chamber size is normal. There is normal global systolic function and contractility. There is a segmental wall motion abnormality. The estimated left ventricle ejection fraction is 55-60%(normal). Normal left atrial pressure with grade I diastolic dysfunction. There is mild thickening of mitral valve anterior leaflet. There is mild tricuspid regurgitation. 01/09/20 ANDREINA: Mild peripheral arterial disease of the left lower extremity. TDM stress test 06/10/18-Positive stress test. Reversible defect consistent with ischemia in inferior area. Normal LV systolic function. LVEF 50%. 04/19/18 ECHO: Normal left ventricular systolic function. No focal wall motion abnormalities. Normal ventricular systolic function. Ejection fraction is visually estimated at 55%. Mitral valve leaflets appear mildly thickened. Mild mitral valve prolapse involving the posterior mitral valve. 04/23/18 CHEST 2 VIEW: Negative. Vadim Matthew MD [address] [place], [address], [place] - [facility] 02/20/2020 11:51:09 04/05/2021 text/html 04/05/21CC : Car diac follow up dyspnea on exertion, chest pain46 year-old white female with a PMH of diastolic dysfunction, hypertension, current tobacco dependence, anxiety presents today for follow-up. She was last seen in the clinic on 02/20/20 , since then she had a cold two months ago and afterward she continue to have chest tightness reffered to her neck with productive cough She have been smoking for the last 30 years. She is generally feeling well but little bit tachycardia. She denies ER visits and hospitalizations since she was last seen. Denies chest pain.Denies shortness of breath at rest.No orthopnea. No PNDs.Denies heart palpitations.Denies dizziness. Denies syncope or near syncope.No ankle or leg edema.No major bleeding events.No reported side effects from medications. Taking medications as prescribed with no missed doses.Denies snoring, daytime somnolence and AM headache.*Last LDL was 61 done on 06/17/18 .Pt dose not takes any statins. On exam today, she is somewhat erratic but does not appear to have any neuro deficits. Neuro exam is unremarkable. She is slurring her words occasionally with occasional stuttering but it appears to be possibly r/t bipolar disorder. *Had ANDREINA 01/09/20 ANDREINA: Mild peripheral arterial disease of the left lower extremity. She reports she is under very high stress. She reports drinking daily about 1-2 drinks per day. She reports smoking about 1/2 ppd. *Had ECHO done in 04/23/19 showed normal global systolic function, EF 55-60%, Normal left atrial pressure with grade I diastolic dysfunction. There is mild thickening of mitral valve anterior leaflet. There is mild tricuspid regurgitation. *Had positive stress test done in 06/10/18 with ischemia in inferior area , with normal LV systolic function , EF 50% . *Had CATH done in 07/02/18 revealed No significant coronary artery disease , near normal LV systolic function. Results from this visit, or from the past: 06/18/18: TC 171 ,TG 176 ,HDL 85, LDL 61 ,07/02/18: HB 12.8, HT 39.403: PT 12.9, INR 0.97, PTT : Na 144 , K 4.1, CL 108 ,CO2 21, GLU 64, BUN 14, CR 0.6,04/21/18: Na 136, K 4.6, CL 102 , CO2 30, GLU 116, BUN 3, CR 0.60,04/19/18: HB 10.7, HT 32.51/08/02 BMP: NA 136, K 4.6, CH 102, CO2 30, GL 116, B 3, CR 0.6 12/26/19 EKG: Low voltage, Poor R progression in chest leads.EKG 08/13/18 : Low voltage , chest leads, Poor R progression in chest leads.EKG 05/07/18 :Abnormality of unclear origin ,Low voltage ,chest leads, Poor R progression in chest leads . 04/23/19 ECHO: LV chamber size is normal. There is normal global systolic function and contractility. There is a segmental wall motion abnormality. The estimated left ventricle ejection fraction is 55-60%(normal). Normal left atrial pressure with grade I diastolic dysfunction. There is mild thickening of mitral valve anterior leaflet. There is mild tricuspid regurgitation. 01/09/20 ANDREINA: Mild peripheral arterial disease of the left lower extremity. TDM stress test 06/10/18-Positive stress test. Reversible defect consistent with ischemia in inferior area. Normal LV systolic function. LVEF 50%. 04/19/18 ECHO: Normal left ventricular systolic function. No focal wall motion abnormalities. Normal ventricular systolic function. Ejection fraction is visually estimated at 55%. Mitral valve leaflets appear mildly thickened. Mild mitral valve prolapse involving the posterior mitral valve. 04/23/18 CHEST 2 VIEW: Negative. Vadim Matthew MD [address] [place], [address], [facility] - [facility] 04/05/2021 11:29:55 10/30/2022 text/html 10/30/22CC : Car diac follow up , [id number] year-old white female with a PMH of diastolic dysfunction, hypertension, current tobacco dependence, and anxiety presents today for follow-up. She was last seen in the clinic on 04/05/21, since then she had more Palpitation, and noted to have tachycardia Denies chest pain.Denies shortness of breath at rest. Has mild dyspnea on exertion.No orthopnea. No PNDs.Denies heart palpitations.Denies dizziness. Denies syncope or near syncope.No ankle or leg edema.No major bleeding events.No reported side effects from medications. Taking medications as prescribed with no missed doses.Denies snoring, daytime somnolence and AM headache.*Last LDL was 61 done on 06/17/18.Pt dose not takes any statins. *Had ANDREINA 01/09/20 ANDREINA: Mild peripheral arterial disease of the left lower extremity. She reports she is under very high stress. She reports drinking daily about 1-2 drinks per day. She reports smoking about 1/2 ppd. *Had ECHO done in 04/23/19 showed normal global systolic function, EF 55-60%, Normal left atrial pressure with grade I diastolic dysfunction. There is mild thickening of mitral valve anterior leaflet. There is mild tricuspid regurgitation. *Had positive stress test done in 06/10/18 with ischemia in inferior area , with normal LV systolic function , EF 50% . *Had CATH done in 07/02/18 revealed No significant coronary artery disease , near normal LV systolic function. Results from this visit, or from the past: 06/18/18: TC 171 ,TG 176 ,HDL 85, LDL 61 ,07/02/18: HB 12.8, HT 39.403: PT 12.9, INR 0.97, PTT : Na 144 , K 4.1, CL 108 ,CO2 21, GLU 64, BUN 14, CR 0.6,04/21/18: Na 136, K 4.6, CL 102 , CO2 30, GLU 116, BUN 3, CR 0.60,04/19/18: HB 10.7, HT 32.51/08/02 BMP: NA 136, K 4.6, CH 102, CO2 30, GL 116, B 3, CR 0.6 12/26/19 EKG: Low voltage, Poor R progression in chest leads.EKG 08/13/18 : Low voltage , chest leads, Poor R progression in chest leads.EKG 05/07/18 :Abnormality of unclear origin ,Low voltage ,chest leads, Poor R progression in chest leads . 04/23/19 ECHO: LV chamber size is normal. There is normal global systolic function and contractility. There is a segmental wall motion abnormality. The estimated left ventricle ejection fraction is 55-60%(normal). Normal left atrial pressure with grade I diastolic dysfunction. There is mild thickening of mitral valve anterior leaflet. There is mild tricuspid regurgitation. 01/09/20 ANDREINA: Mild peripheral arterial disease of the left lower extremity. TDM stress test 06/10/18-Positive stress test. Reversible defect consistent with ischemia in inferior area. Normal LV systolic function. LVEF 50%. 04/19/18 ECHO: Normal left ventricular systolic function. No focal wall motion abnormalities. Normal ventricular systolic function. Ejection fraction is visually estimated at 55%. Mitral valve leaflets appear mildly thickened. Mild mitral valve prolapse involving the posterior mitral valve. 04/23/18 CHEST 2 VIEW: Negative. Vadim Matthew MD [address] [place], [address], [facility] - [facility] 10/30/2022 12:04:04 OBGyn Episode No OBEpisode recorded.
--- OUTSIDE RECORDS SUMMARY | 2024-04-05 02:09 | XMS_ITS | Encounter Summary ---
Author Organization [facility] Healthcare Address [address] [place] [address] Care Team Providers Care Menagerie Superintendent Name Role Phone Chris Bean MD Primary Care Provider [phone] Encounter Details Date Type Department Care Team (Late st Contact Info) Description 01/23/2024 Orders Only [facility] Health Information Management [address] [place] [id number] Chris Bean MD [facility] [place] [id number] Social History Tobacco Use Types Packs/Day Years Used Date Smoking Tobacco: Every Day Cigarettes 0.3 23.9 Started: 05/21/2000 Smokeless Tobacco: Never Alcohol Use Standard Drinks/Week Comments Yes 0 (1 standard drink = 0.6 oz pur e alcohol) daily AUDIT-C Answer Date Recorded Q1: How often do you have a drink containing alc ohol? Monthly or less 12/25/2023 Q2: How many drinks containi ng alcohol do you have on a typical day when you are drinking? 1 or 2 12/25/2023 Q3: How often do you have si x or more drinks on one occasion? Less than monthly 12/25/2023 PHQ-2 Answer Date Recorded PHQ-2 Total Score (If total score is 3 or more points, staff should administer the PHQ-9) 3 09/20/2023 Personal Safety Answer Date Recorded Have you ever been in or are you currently in a harmful physical or emotional relationship or is someone making you feel afraid or unsafe? Yes 03/23/2023 Comments No Sex and Gender Information Value Date Recorded Sex Assigned at Not on file Legal Sex Female 1:49 PM CDT Gender Identity Female 06/30/2020 9:08 AM CDT Sexual Orientation Not on file documented as of this encounter Plan of Treatment Not on file documented as of this encounter Procedures Procedure Name Priority Date/Time Associated Diagnosis Comments SCAN - RADIOLOGY/IMAGING 01/23/2024 documented in this encounter Results * SCAN - RADIOLOGY/IMAGING (01/23/2024) Anatomical Region Laterality Modality Other Chris Bean MD Final Result documented in this encounter Visit Diagnoses Not on filedocumented in this encounter Care Teams Menagerie Superintendent Relationship Specialty Start Date End Date Chris Bean MD [address] [place] [id number] PCP - General Family Medicine 09/08/22 documented as of this encounter
--- OUTSIDE RECORDS SUMMARY | 2024-04-05 02:09 | XMS_ITS | Encounter Summary ---
Author Organization [facility] Address [address] [facility] [place] [address] Care Team Providers Care Preschool Program Director Name Role Phone Haim Sifuentes MD Primary Care Provider [phone] Reason for Visit * Reason Onset Date Comments Referral 01/22/2019 Encounter Details Date Type Department Care Team (Late st Contact Info) Description 01/22/2019 Telephone [facility] [place] [address] [facility] Referral Social History Tobacco Use Types Packs/Day Years Used Date Smoking Tobacco: Never Assessed Sex and Gender Information Value Date Recorded Sex Assigned at Not on file Gender Identity Not on file Sexual Orientation Not on file documented as of this encounter Patient Instructions * Patient Instructions* [facility] - 01/22/2019 9:27 AM CDT Received referral from patient PCP office for cervical and lumbar spine pain. Left patient voice message may schedule with Alice Rodriguez for evaluation. Patients insurance will need to be updated. documented in this encounter Plan of Treatment Not on file documented as of this encounter Visit Diagnoses Not on filedocumented in this encounter Care Teams Preschool Program Director Relationship Specialty Start Date End Date Haim Sifuentes MD [address] [facility] [address] [place] [id number] PCP - General 12/02/12 documented as of this encounter
--- OUTSIDE RECORDS SUMMARY | 2024-04-05 02:09 | XMS_ITS | Encounter Summary ---
Author Organization [facility] Healthcare Address [address] [place] [address] Care Team Providers Care Meat Packager Name Role Phone Chris Bean MD Primary Care Provider Reason for Referral * MRI/CAT/PET Scan (Routine) - Closed Specialty Diagnoses / Procedures Referred By Ralph vásquez Referred To Contact Radiology Diagnoses Thoracic radiculopathy Procedures MRI Thoracic Spine WO Contrast Chris Bean MD [address] [place] [address] DR GARDNER [address] [place] [address] Phone: tel: fax: [address] [address] Referral ID Status Reason Start Date Expiration Date Visits Re quested Visits Authorized [id number] Closed 02/20/2024 04/19/2024 1 1 [place] Reason for Visit * MRI/CAT/PET Scan (Routine) - Closed Specialty Diagnoses / Procedures Referred By Sarahac thalia Referred To Contact Radiology Diagnoses Thoracic radiculopathy Procedures MRI Thoracic Spine WO Contrast Chris Bean MD [address] [place] [address] DR GARDNER [address] [place] [address] Phone: tel: fax: [address] [place] [address] Referral ID Status Reason Start Date Expiration Date Visits Re quested Visits Authorized [id number] Closed 02/20/2024 04/19/2024 1 1 Encounter Details Date Type Department Care Team (Latest Contact Info) Description 03/05/2024 6:16 AM AIR [place] - 03/05/2024 11:59 PM AIR [place] Hospital Encounter [facility] [address] [place] [address] Thoracic radiculopathy Discharge Disposition: Discharge to home or self care Social History Tobacco Use Types Packs/Day Years [...] on file documented as of this encounter Medications at Time of Discharge albuterol HFA (ProAir HFA) 90 mcg/actuation inhaler Inhale 2 puffs every 4 (four) hours as needed for wheezing or shortness of breath 3 each 4 12/25/2023 amitriptyline (ELAVIL) 25 mg tabletIndications :Primary insomnia Take 1.5 tablets (37.5 mg total) by mouth nightly 135 tablet 3 12/25/2023 5 baclofen (LIORESAL) 10 mg tabletIndications :Chronic bilateral low back pain without sciatica Take 1 tablet (10 mg total) by mouth 3 (three) times a day 90 tablet 2 01/14/[address] (CYMBALTA) 60 mg capsuleIndication s:Generalized anxiety disorder Take 1 capsule (60 mg total) by mouth daily 90 capsule 3 12/25/2023 5 metoprolol XL (TOPROL-XL) 25 mg extended release tabletIndications :Benign essential HTN Take 1 tablet (25 mg total) by mouth daily 100 tablet 1 12/25/2023 spironolactone (ALDACTONE) 25 mg tablet Take 1 tablet (25 mg total) by mouth daily 90 tablet 3 12/25/2023 5 topiramate (TOPAMAX) 100 mg tabletIndications :Migraine without aura and without status migrainosus, not intractable Take 1 tablet (100 mg total) by mouth 2 (two) times a day 180 tablet 1 12/25/2023 documented as of this encounter Discharge Disposition Disposition Code Departure Means Destination Discharge to home or self care documented in this encounter Plan of Treatment Not on file documented as of this encounter Procedures Procedure Name Priority Date/Time Associated Diagnosis Comments MRI THORACIC SPINE WO CONTRAST Schedule Routine, Read Routine (OP Routine) 03/05/2024 7:12 AM AIR [place] Thoracic radiculopathy documented in this encounter Results * MRI Thoracic Spine WO Contrast (03/05/2024 7:12 AM AIR [place]) Anatomical Region Laterality Modality Spine N/A Magnetic Resonan ce 03/05/2024 8:43 AM AIR [place] Narrative 03/05/2024 9:54 AM AIR [place] EXAM DESCRIPTION: ?? MRI THORACIC SPINE WO CONTRAST REASON FOR STUDY: Chronic nontraumatic thoracic and lumbar spine as well as sacroiliac and gluteal pain, described as aching, burning, and cramping, with radiation into the right thigh and foot, with associated numbness and weakness, for greater than 1 year. ??Additional complaint of stiffness in the morning. ??No provided history of inciting and/or aggravating events, though symptoms aggravated with bending as well as lying down. ??No provided past medical or surgical history. TECHNIQUE: Sagittal and axial imaging of the thoracic spine includes T1, T2, STIR and gradient echo sequences. ?? Images saved to PACS. COMPARISON: Relevant portions of lumbar spine radiograph 09/13/2022 and 08/03/2022; relevant portions of CT lumbar spine without contrast 12/28/2021 relevant portions of MRI lumbar spine without contrast 11/18/2021; MRI thoracic spine without contrast 12/22/2021. FINDINGS: SEGMENTATION: Top down counting on sagittal localizer sequence (in association with above-described prior imaging) demonstrates 7 cervical vertebrae and 12 thoracic vertebrae (noting vestigial 12th ribs) in advance of 4 non rib-bearing lumbar type vertebrae yielding lumbosacral transitional anatomy manifested as sacralization of the L5 vertebra. ??For the purposes of this study, the lowest fully formed intervertebral disc level is labeled L4-5. ALIGNMENT: ??Normal. VERTEBRAE: ?? No MR evidence of acute-subacute fracture. ??Vertebral body heights maintained. ??Spondylosis. ??Scattered hemangiomas and patchy fatty marrow replacement of the visualized osseous architecture. HARDWARE: ?? None in the thoracic spine. CORD: ?? Normal in size and signal intensity. THORACIC DISCS T1-T12: ?? Multilevel variable intervertebral disc desiccation and predominantly slight loss of intervertebral disc height. ??No diffuse disc bulge or focal herniation. ??No spinal canal stenosis no neural foraminal stenosis. SOFT TISSUES: ?? No acute abnormality. LOWER CERVICAL: ?? Incompletely imaged. No significant spinal stenosis or neuroforaminal stenosis. UPPER LUMBAR: ?? Incompletely imaged. ??No significant spinal or neuroforaminal stenosis. OTHER: ?? No other significant abnormality. IMPRESSION: ?? 1. ?? Lumbosacral transitional anatomy as discussed above. 2. ?? Redemonstration of mild spondylosis and degenerative disc disease of the thoracic spine without spinal canal stenosis or neural foraminal stenosis. THIS IS AN ELECTRONICALLY VERIFIED FINAL REPORT 03/05/2024 9:54 AM - Electronically signed by ??Ravi CASTRO: MATTHEW D: ??03/05/2024 9:54 AM T: ??03/05/2024 9:54 AM Report ID: [id number] Reading Location: ??[id number] Procedure Note Ravi Durham MD - 03/05/2024 EXAM DESCRIPTION: MRI THORACIC SPINE WO CONTRAST REASON FOR STUDY: Chronic nontraumatic thoracic and lumbar spine as wellas sacroiliac and gluteal pain, described as aching, burning, and cramping,with radiation into the right thigh and foot, with associated numbness and weakness, for greater than 1 year. Additional complaint of stiffness inthe morning. No provided history of inciting and/or aggravating events,though symptoms aggravated with bending as well as lying down. No provided past medical or surgical history. TECHNIQUE: Sagittal and axial imaging of the thoracic spine includes T1,T2, STIR and gradient echo sequences. Images saved to PACS. COMPARISON: Relevant portions of lumbar spine radiograph 09/13/2022 and 08/03/2022; relevant portions of CT lumbar spine without pjwhocvo78/14/2022 relevant portions of MRI lumbar spine without contrast 11/18/2021; MRI thoracic spine without contrast 12/22/2021. FINDINGS: SEGMENTATION: Top down counting on sagittal localizer sequence(in association with above-described prior imaging) demonstrates 7 cervical vertebrae and 12 thoracic vertebrae (noting vestigial 12th ribs) inadvance of 4 non rib-bearing lumbar type vertebrae yielding lumbosacral transitional anatomy manifested as sacralization of the L5 vertebra. For the purposesof this study, the lowest fully formed intervertebral disc level is labeledL4-5. ALIGNMENT: Normal. VERTEBRAE: No MR evidence of acute-subacute fracture. Vertebral body heights maintained. Spondylosis. Scattered hemangiomas and patchy fatty marrow replacement of the visualized osseous architecture. HARDWARE: None in the thoracic spine. CORD: Normal in size and signal intensity. THORACIC DISCS T1-T12: Multilevel variable intervertebral discdesiccation and predominantly slight loss of intervertebral disc height. No diffusedisc bulge or focal herniation. No spinal canal stenosis no neural foraminal stenosis. SOFT TISSUES: No acute abnormality. LOWER CERVICAL: Incompletely imaged. No significant spinal stenosis or neuroforaminal stenosis. UPPER LUMBAR: Incompletely imaged. No significant spinal orneuroforaminal stenosis. OTHER: No other significant abnormality. IMPRESSION: 1. Lumbosacral transitional anatomy as discussed above. 2. Redemonstration of mild spondylosis and degenerative disc disease ofthe thoracic spine without spinal canal stenosis or neural foraminal stenosis. THIS IS AN ELECTRONICALLY VERIFIED FINAL REPORT 03/05/2024 9:54 AM - Electronically signed by Ravi Durham M.D. MATTHEW: MATTHEW Report ID: [id number] Reading Location: [place] [address] Chris Bean MD IM MRI PROCEDURES Final Result documented in this encounter Visit Diagnoses Diagnosis Thoracic radiculopathy Thoracic or lumbosacral neuritis or radiculitis, unspecified documented in this encounter Care Teams Meat Packager Relationship Specialty Start Date End Date Chris Bean MD [address] [facility] [address] GARDNER [address] [place] [id number] PCP - General Family Medicine 09/08/22 documented as of this encounter
--- OUTSIDE RECORDS SUMMARY | 2024-04-05 02:09 | XMS_ITS | Referral Summary ---
Author Organization [facility] Address [address] [facility] [place] [address] Care Team Providers Care Dragger Name Role Phone Haim Sifuentes MD Primary Care Provider [phone] Source Comments [facility],non-owned Affiliates and Associated Physician Practices is amultiple site organization consisting of ambulatory clinics and hospital sitesin [place], [place], [place] and [place]. This disclosure is being madepursuant to the Care Everywhere program and may not contain all information available regarding this patient. Last updated 18.[facility] Social History Tobacco Use Types Packs/Day Years Used Date Smoking Tobacco: Never Assessed Sex and Gender Information Value Date Recorded Sex Assigned at Not on file Gender Identity Not on file Sexual Orientation Not on file Plan of Treatment Not on file Care Teams Dragger Relationship Specialty Start Date End Date Haim Sifuentes MD [address] [facility] [address] [facility] [address] [place] [address] PCP - General 12/02/12
--- OUTSIDE RECORDS SUMMARY | 2024-04-05 02:09 | XMS_ITS | Referral Summary ---
Author Organization [facility] Address [address] [place] [address] Care Team Providers Care Director Quality Assurance Name Role Phone Chris Bean MD Primary Care Provider [phone] Encounters Date Type Department Care Team Description 04/03/2024 Telephone [facility] Medical [facility] Family Medicine at [address] [place] [address] Chris Bean MD Medical Question/Miscellaneou s 03/05/2024 6:16 AM FACILITIES AND GROUNDS DIRECTOR - 03/05/2024 11:59 PM FACILITIES AND GROUNDS DIRECTOR Hospital Encounter [address] [address] Thoracic radiculopathy Discharge Disposition: Discharge to home or self care 01/23/2024 Orders Only [facility] Health Information Management [address] [place] [address] Chris Bean MD 01/23/2024 Nurse Triage [facility] at [address] [place] [address] Ashley Dale RN 01/23/2024 Telephone [facility] Family Medicine at [address] [place] [address] Chris Bean MD Medical Question/Miscellaneou s 01/14/2024 1:15 PM CDT Telemedicine [facility] at [address] [place] [address] Chris Bean MD Chronic bilateral low back pain without sciatica (Primary Dx); Thoracic radiculopathy 01/11/2024 Nurse Triage [facility] at [address] [place] [address] Olivia Duran RN 01/11/2024 Telephone [facility] at [address] [place] [address] Chris Bean MD Medication Request from Last 3 Months Allergies Active Allergy Reactions Criticality Noted Date Comments Lisinopril Hives,Anaphylaxis High 02/13/2020 Penicillins Other (See comments) Low 09/20/2023 Medications topiramate (TOPAMAX) 100 mg tabletIndication s:Migraine without aura and without status migrainosus, not intractable Take 1 tablet (100 mg total) by mouth 2 (two) times a day 180 tablet 1 4 Active spironolactone (ALDACTONE) 25 mg tablet Take 1 tablet (25 mg total) by mouth daily 90 tablet 3 4 12/25/19 25 Active metoprolol XL (TOPROL-XL) 25 mg extended release tabletIndication s:Benign essential HTN Take 1 tablet (25 mg total) by mouth daily 100 tablet [address] (CYMBALTA) 60 mg capsuleIndicatio ns:Generalized anxiety disorder Take 1 capsule (60 mg total) by mouth daily 90 capsule 3 4 12/25/19 25 Active amitriptyline (ELAVIL) 25 mg tabletIndication s:Primary insomnia Take 1.5 tablets (37.5 mg total) by mouth nightly 135 tablet 3 4 12/25/19 25 Active albuterol HFA (ProAir HFA) 90 mcg/actuation inhaler Inhale 2 puffs every 4 (four) hours as needed for wheezing or shortness of breath 3 each 4 4 12/25/19 25 Active baclofen (LIORESAL) 10 mg tabletIndication s:Chronic bilateral low back pain without sciatica Take 1 tablet (10 mg total) by mouth 3 (three) times a day 90 tablet 2 4 04/13/20 24 Active Active Problems Problem Noted Date Diagnosed Date Alcohol abuse 03/24/2023 Narcotic dependence 03/24/2023 Chronic low back pain 03/24/2023 Alcohol withdrawal syndrome without complication 03/23/2023 Status post lumbar microdiscectomy 09/13/2022 Assessment & Plan (09/13/2022 10:44 AM CDT): PLAN: - Start physical therapy/aqua therapy/home exercise program - Patient to discuss weaning off pain medications per pain management 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 FOLLOW UP APPT: As needed. Preop MRI CD returned to the patient. Intervertebral disc disorder with radiculopathy of lumbar region 05/16/2022 Assessment & Plan (05/16/2022 4:51 PM FACILITIES AND GROUNDS DIRECTOR): Ms. Whitt has symptoms that are consistent with recurrent S1 radiculopathy. There is no severe, obvious compression seen on MRI. There is evidence of a prior L5-S1 laminotomy. There is a disc bulge anteriorly at this level which could be causing the symptoms. We discussed that further imaging is not likely to elucidate matters. We discussed that an EMG would help if it is positive, but would be uninformative if it is negative. She will send lumbar spine films that she recently obtained to rule out instability. We discussed that she may benefit from a re-exploration and decompression at L5-S1 given her symptoms, but the amount improvement that she would see postoperatively is uncertain. We will speak to her by phone once the films have been reviewed. Atypical chest pain 07/02/2019 Candidiasis of mouth 07/02/2019 Dyslipidemia 07/02/2019 Facial swelling 07/02/2019 Allergic rhinitis 08/11/2018 Peptic ulcer 08/11/2018 Chronic diastolic heart failure 06/07/2018 Cardiomyopathy 05/06/2018 Diarrhea 05/06/2018 Dyspnea on exertion 05/06/2018 Essential hypertension 05/06/2018 Hypokalemia 05/06/2018 Nausea 05/06/2018 Tachyarrhythmia 05/06/2018 Upper respiratory infection 05/06/2018 Vomiting 05/06/2018 Acute congestive heart failure (CMS/HCC) 019 Patent foramen ovale 08/10/2017 Alcohol abuse 07/18/2017 Transient global amnesia 07/16/2017 Attention deficit hyperactiv ity disorder (ADHD), predominantly hyperactive type 05/18/2017 Edema of both legs 11/13/2016 Migraine without aura and wi thout status migrainosus, not intractable 08/28/2016 RAD (reactive airway disease ), mild persistent, with acute exacerbation 08/28/2016 Anxiety 01/17/2016 Assessment & Plan (06/30/2020 10:21 AM CDT): Chronic uncontrolled Refer to dr silverman Depression 01/17/2016 Assessment & Plan (06/30/2020 10:23 AM CDT): Chronic condition not well controlled Refer to dr silverman and his counselor. YAMILETH Patient advised to call us or go to the ER with any suicidal thoughts or ideations. Lower back pain 01/17/2016 Neuropathy of right lower extremity 01/17/2016 Immunizations Name Administration Dates Next Due Influenza, Unspecified 12/25/2023(Deferr ed: Patient decision),03/28/2023(Deferred: Patient Refused),12/15/2021(Deferred: Patient decision) Pfizer SARS-CoV-2 Monovalent Vaccination (12+ Yrs) PURPLE 07/12/2020,06/17/2020 Social History Tobacco Use Types Packs/Day Years Used Date Smoking Tobacco: Every Day Cigarettes 0.3 23.9 Started: 05/21/2000 Smokeless Tobacco: Never Tobacco Cessation:Ready to Q uit: Not Asked; Counseling Given: Not Answered Alcohol Use Standard Drinks/Week Comments Yes 0 [...] AM CDT Sexual Orientation Not on file Last Filed Vital Signs Vital Sign Reading Time Taken Comments Blood Pressure 94/60 12/25/2023 10:05 AM CDT Pulse 102 12/25/2023 10:05 AM CDT Temperature 36.3 ??C (97.3 ??F) 12/25/2023 10:05 AM C DT Respiratory Rate 18 12/25/2023 10:05 AM CDT Oxygen Saturation 98% 12/25/2023 10:05 AM CDT Inhaled Oxygen Concentration - - Weight 58.5 kg (129 lb) 01/24/2024 10:31 AM CDT Height 157.5 cm (5' 2.01 ) 01/24/2024 10:31 AM C DT Body Mass Index 23.59 01/24/2024 10:31 AM CDT Plan of Treatment Not on file Procedures Procedure Name Priority Date/Time Associated Diagnosis Comments MRI THORACIC SPINE WO CONTRAST Schedule Routine, Read Routine (OP Routine) 03/05/2024 7:12 AM FACILITIES AND GROUNDS DIRECTOR Thoracic radiculopathy SCAN - LABS 01/23/2024 SCAN - RADIOLOGY/IMAGING 01/23/2024 HM COLONOSCOPY Routine 11/13/2019 from Last 3 Months or Most Recently Relevant to Health Maintenance Results * MRI Thoracic Spine WO Contrast (03/05/2024 7:12 AM FACILITIES AND GROUNDS DIRECTOR) Anatomical Region Laterality Modality Spine N/A Magnetic Resonan ce 03/05/2024 8:43 AM FACILITIES AND GROUNDS DIRECTOR Narrative 03/05/2024 9:54 AM FACILITIES AND GROUNDS DIRECTOR EXAM DESCRIPTION: ?? MRI THORACIC SPINE WO [...] 9:54 AM - Electronically signed by ??Ravi Durham M.D. MATTHEW: MATTHEW D: ??03/05/2024 9:54 AM T: ??03/05/2024 9:54 AM Report ID: [id number] Reading Location: ??[id number] Procedure Note Ravi Durham MD - 03/05/2024 [...] relevant portions of CT lumbar spine without /14/2022 relevant portions of MRI lumbar spine without [...] Ravi Durham M.D. MATTHEW: MATTHEW Report ID: [id number] Reading Location: [place] [address] Chris Bean MD IMG MRI PROCEDURES Final Result * SCAN - RADIOLOGY/IMAGING (01/23/2024) Anatomical Region Laterality Modality Other Chris Bean MD Final Result * SCAN - LABS (01/23/2024) Chris Bean MD Final Result * HM COLONOSCOPY (11/13/2019) Laquita Davis MD HEALTH MAINTENANCE Final Result from Last 3 Months or Most Recently Relevant to Health Maintenance Insurance [facility] [place] [place] Member Subscriber Plan / Payer (Ef fective 2022-Present) Name:Gerardo Whitt Relation to Subscriber:Spouse Name:RAVI WHITT Date of :1970 (Home) Address: [address] [place] [address] Payer ID:[id number] (NAIC) Type:HEALTHCARE/EXCHANGE Address: [address] [place] [employer] Advance Directives For more information, please contact: [phone] * Full Code (Latest Code Status on File) Date Activated Date Inactivated Comments 03/23/2023 4:06 PM 03/27/2023 5:03 PM Care Teams Director Quality Assurance Relationship Specialty Start Date End Date Chris Bean MD [address] [facility] [address] [facility] [address] G[address]NER [address] [place] [phone] PCP - General Family Medicine 09/08/22
--- OUTSIDE RECORDS SUMMARY | 2024-04-05 02:09 | XMS_ITS | Patient Health Summary ---
Author Organization [facility] Address [address] [facility] [address] Care Team Providers Care Production Team Member Name Role Phone Haim Sifuentes MD Primary Care Provider Note from [facility],non-owned Affiliates and Associated Physician Practices is amultiple site organization consisting of ambulatory clinics and hospital sitesin [place], [place], [place] and [place]. This disclosure is being madepursuant to the Care Everywhere program and may not contain all information available regarding this patient. Last updated 18.[facility] Social History Tobacco Use Types Packs/Day Years Used Date Smoking Tobacco: Never Assessed Sex and Gender Information Value Date Recorded Sex Assigned at Not on file Gender Identity Not on file Sexual Orientation Not on file Procedures * CULTURE STREP GROUP A(Performed 03/17/2014) Results * CULTURE STREP GROUP A (03/17/2014 3:50 PM AIR CARGO GROUND OPERATIONS SUPERVISOR) Culture Beta Strep No Growth of Groups A, C or G Beta Streptococc us. [facility] Throat swab (specimen) ENTIRE THROAT (SURFACE REGION OF NECK) / Unknown 03/17/2014 3:50 PM AIR CARGO GROUND OPERATIONS SUPERVISOR 03/17/2014 9:33 PM AIR CARGO GROUND OPERATIONS SUPERVISOR Narrative [facility] - 03/19/2014 11:07 AM AIR CARGO GROUND OPERATIONS SUPERVISOR AndersonSpecimen#[id number] [place] Loc/Rm/Bed: EXPCARE G// Historical Provider LAB - MICROBIOLOG Y ORDERABLES [id number] [place] [address] Care Teams Production Team Member Relationship Specialty Start Date End Date Haim Sifuentes MD [address] [facility] [address] [place] [address] PCP - General 12/02/12
--- OUTSIDE RECORDS SUMMARY | 2024-04-05 02:09 | XMS_ITS | Clinical Summary ---
Author Organization [facility] Address [address] [place] [address] Phone Care Team Providers Care Tag Machine Operator Name Role Phone Unavailable Primary Care Provider Unavailabl e Social History Tobacco Use Types Packs/Day Years Used Date Smoking Tobacco: Never Assessed Comments Unknown Sex and Gender Information Value Date Recorded Sex Assigned at Not on file Legal Sex Unknown 03/19/2023 2:28 PM NITROGEN OPERATOR Gender Identity Not on file Sexual Orientation Not on file Plan of Treatment Not on file Insurance [facility]
--- OUTSIDE RECORDS SUMMARY | 2024-04-05 02:09 | XMS_ITS | Clinical Summary ---
Author Organization [facility] Address [address] [place] [address] Care Team Providers Care Crosstie Inspector Name Role Phone Chris Bean MD Primary Care Provider [phone] Allergies Active Allergy Reactions Criticality Noted Date [...] 05/16/2022 Assessment & Plan (05/16/2022 4:51 PM INSIDE OUTSIDE SALES REPRESENTATIVE): Ms. Whitt has symptoms that are consistent [...] 01/17/2016 Neuropathy of right lower extremity 01/17/2016 Encounters Date Type Department Care Team Description 04/03/[address] [facility] Medical Group Family Medicine at [address] [place] [address] Chris Bean MD Medical Question/Miscellaneou s 03/05/2024 6:16 AM INSIDE OUTSIDE SALES REPRESENTATIVE - 03/05/2024 11:59 PM INSIDE OUTSIDE SALES REPRESENTATIVE Hospital Encounter [address] [address] Thoracic radiculopathy Discharge Disposition: Discharge to home or self care 01/23/2024 Orders Only [facility] [place] Health Information Management [address] [place] [address] Chris Bean MD 01/23/2024 Nurse Triage [facility] at [address] [place] [phone] Ashley Dale, RN 01/23/2024 Telephone [facility] at [address] [place] [address] Chris Bean MD Medical Question/Miscellaneou s 01/14/2024 1:15 PM CDT Telemedicine [facility] at [address] [place] [phone] Chris Bean MD Chronic bilateral low back pain without sciatica (Primary Dx); Thoracic radiculopathy 01/11/2024 Nurse Triage [facility] at [address] [place] [phone] Olivia Duran RN 01/11/2024 Telephone [facility] at [address] [place] [phone] Chris Bean MD Medication Request from Last 3 Months Immunizations Name Administration Dates Next Due Influenza, Unspecified 12/25/2023(Deferr ed: Patient decision),03/28/2023(Deferred: Patient Refused),12/15/2021(Deferred: Patient decision) Pfizer SARS-CoV-2 Monovalent Vaccination (12+ Yrs) PURPLE 07/12/2020,06/17/2020 Surgical History Surgery Date Site/Laterality Comments SECTION HYSTERECTOMY MICRODISCECTOMY LUMBAR 04/16/2013 - 04/15/2014 L5-S1 TONSILLECTOMY/ADENOIDECTOMY BACK SURGERY 07/15/2022 - 08/13/2022 Medical History Medical History Date Comments Anxiety Hypertension Migraines Intervertebral disc disorder with radiculopathy of lumbar region Allergy-induced asthma Current smoker Diastolic heart failure, NYHA class 1 (CMS/HCC) (HCC) Family History Medical History Relation Name Comments Dementia Father Diabetes Mother Relation Name Status Comments Brother Alive Daughter Alive Father Alive Mother Alive Son Alive Social History Tobacco Use Types Packs/Day Years [...] AM CDT Sexual Orientation Not on file Obstetrics History Last Filed Vital Signs Vital Sign Reading [...] 01/24/2024 10:31 AM CDT Plan of Treatment Health Maintenance Due Date Last Done Comments Breast Cancer Screening-Mammogram 1976 Hepatitis C Screening 1976 Pneumococcal vaccine <65 (1 of 2 - PCV) 01/06/1982 DTaP/Tdap/Td Vaccine (1 - Tdap) 01/06/1987 Hepatitis B Screening 01/06/1994 Covid-19 Vaccine (3 - season) 2023 07/12/2020, 06/17/2020 Depression Screening 09/19/2024 09/20/2023, 09/20/2023, 06/01/2022, Additional history exists Influenza Vaccine (#1) 2024 Postp oned from 12/16/2023 (Patient declined, but will receive in the future) Regular Well Visit/Exam 18-64 12/24/2024 12/25/2023, 09/26/2022 Colon Cancer Screening-Colonoscopy 11/12/2029 11/13/2019 Procedures Procedure Name Priority Date/Time Associated Diagnosis Comments MRI THORACIC SPINE WO CONTRAST Schedule Routine, Read Routine (OP Routine) 03/05/2024 7:12 AM INSIDE OUTSIDE SALES REPRESENTATIVE Thoracic radiculopathy SCAN - LABS 01/23/2024 SCAN - RADIOLOGY/IMAGING 01/23/2024 COLONOSCOPY Routine 11/13/2019 from Last 3 Months or Most Recently Relevant to Health Maintenance Results * MRI Thoracic Spine WO Contrast (03/05/2024 7:12 AM INSIDE OUTSIDE SALES REPRESENTATIVE) Anatomical Region Laterality Modality Spine N/A Magnetic Resonan ce 03/05/2024 8:43 AM INSIDE OUTSIDE SALES REPRESENTATIVE Narrative 03/05/2024 9:54 AM INSIDE OUTSIDE SALES REPRESENTATIVE EXAM DESCRIPTION: ?? MRI THORACIC SPINE WO [...] AM T: ??03/05/2024 9:54 AM Report ID: [id number] Reading Location: ??[id number] Procedure Note Ravi Durham MD - 03/05/2024 [...] relevant portions of CT lumbar spine without vtdghzva91/14/2022 relevant portions of MRI lumbar spine without [...] 9:54 AM - Electronically signed by Ravi CamargoD. MATTHEW: MATTHEW Report ID: [id number] Reading Location: [id number] Chris Bean MD IMG MRI PROCEDURES Final Result * SCAN - RADIOLOGY/IMAGING (01/23/2024) Anatomical Region Laterality Modality Other Chris Bean MD Final Result * SCAN - LABS (01/23/2024) Chris Bean MD Final Result * HM COLONOSCOPY (11/13/2019) Laquita Davis MD HEALTH MAINTENANCE Final Result from Last 3 Months or Most Recently Relevant to Health Maintenance Insurance [place] Advance Directives For more information, please contact: [phone] * Full Code (Latest Code Status on File) Date Activated Date Inactivated Comments 03/23/2023 4:06 PM 03/27/2023 5:03 PM Care Teams Crosstie Inspector Relationship Specialty Start Date End Date Chris Bean MD [address] [place] [address] PCP - General Family Medicine 09/08/22
--- OUTSIDE RECORDS SUMMARY | 2024-04-05 02:10 | XMS_ITS | Encounter Summary ---
Author Organization [facility] Healthcare Address [address] [place] [address] Care Team Providers Care Elevator Dispatcher Name Role Phone Chris Bean MD Primary Care Provider [phone] Reason for Visit * Reason Onset Date Comments Medication Request 01/11/2024 Encounter Details Date Type Department Care Team (Late st Contact Info) Description 01/11/2024 Telephone [facility] Medical Group Family Medicine at [address] [phone] Chris Bean MD [address] [place] [address] Medication Request Social History Tobacco Use Types Packs/Day Years [...] on file documented as of this encounter Ordered Prescriptions Prescription Sig Dispense Quantity Refills Last Filled Start Date End Date cyclobenzaprine (FLEXERIL) 10 mg tablet Take 1 tablet (10 mg total) by mouth 3 (three) times a day as needed for muscle spasms 90 tablet 3 01/14/2024 01/24/2024 documented in this encounter Miscellaneous Notes * Telephone Encounter - Natali Eagle - 01/14/2024 10:19 AM CDT Video appt 01/14/2024 * Telephone Encounter - Kimberlyn Wilde RN - 01/14/2024 10:13 AM CDT Script sent Please schedule patient for video visit to discuss other options for flexeril. The dose prescribed is the highest dose * Telephone Encounter - Chris Bean MD - 01/13/2024 4:37 PM CDT Ok to refill. We need to reassess why patient taking Flexeril and what alternative can be given. May be Video visit. Unfortunately 10mg is the highest dosage on that. * Telephone Encounter - Roseline Holland - 01/11/2024 2:25 PM CDT Medication Question/Clarification Medication Name(s): Cyclobenzaprine 10mg What is the question or clarification needed? Patient stated that she was on float trip and lost her medication. Patient wanted to know if the doctor could send her another script? Patient is asking for a increase of the medication or another medication. If needed, Pharmacy(s) medication(s) should be sent to: [facility] Additional Comments: patient stated that she has one pill left Does message need to be routed? Yes-Action Needed documented in this encounter Plan of Treatment Not on file documented as of this encounter Visit Diagnoses Not on filedocumented in this encounter Discontinued Medications Medication Sig Discontinue Reason Start Date End Da te cyclobenzaprine (FLEXERIL) 10 mg tablet Take 1 tablet (10 mg total) by mouth 3 (three) times a day as needed for muscle spasms Reorder 12/25/2023 01/14/2024 documented as of this encounter Care Teams Elevator Dispatcher Relationship Specialty Start Date End Date Chris Bean MD [address] [facility] [address] [place] [address] [place] [address] PCP - General Family Medicine 09/08/22 documented as of this encounter
--- OUTSIDE RECORDS SUMMARY | 2024-04-05 02:10 | XMS_ITS | Encounter Summary ---
Author Organization [facility] Healthcare Address [address] [place] [address] Care Team Providers Care Crate Builder Name Role Phone Chris Bean MD Primary Care Provider [phone] Reason for Visit * Reason Onset Date Comments Medical Question/Miscellaneous 01/23/2024 Encounter Details Date Type Department Care Team (Late st Contact Info) Description 01/23/2024 Telephone [facility] Medical Group Family Medicine at [address] [phone] Chris Bean MD [address] [place] [address] Medical Question/Miscellaneous Social History Tobacco Use Types Packs/Day Years [...] on file documented as of this encounter Miscellaneous Notes * Telephone Encounter - Ashley Dale RN - 01/23/2024 5:32 PM CDT 911 officers updated triage nurse that they are at residence and pt is not home. 01/23/24 5:33pm Call is closed. Message routed for FYI * Telephone Encounter - Viky Crain RN - 01/23/2024 4:06 PM CDT Ankles swollen x 2 days, Denies any SOB Abscess tooth. Wants appointment to see Dr. Bean. Scheduledto see Dr. Bean 01/24/24 at 10:45 documented in this encounter Plan of Treatment Not on file documented as of this encounter Visit Diagnoses Not on filedocumented in this encounter Care Teams Crate Builder Relationship Specialty Start Date End Date Chris Bean MD [address] [facility] [address] [address] PCP - General Family Medicine 09/08/22 documented as of this encounter
--- OUTSIDE RECORDS SUMMARY | 2024-04-05 02:10 | XMS_ITS | Encounter Summary ---
Author Organization [facility] Healthcare Address [address] [place] [address] Care Team Providers Care Bottom Turner Name Role Phone Chris Bean MD Primary Care Provider [phone] Reason for Referral * MRI/CAT/PET Scan (Routine) - Closed Specialty Diagnoses / Procedures Referred By Contac t Referred To Contact Radiology Diagnoses Thoracic radiculopathy Procedures MRI Thoracic Spine WO Contrast Chris Bean MD [address] [place] [address] Phone: tel: fax: [address] [address] Referral ID Status Reason Start Date Expiration Date Visits Re quested Visits Authorized [id number] Closed 02/20/2024 04/19/2024 1 1 Reason for Visit * Reason Comments Back Pain Takes flexeril and h as neuropathy Went to detox to get off hydrocodone back in March and does not want to get back on narcotics Encounter Details Date Type Department Care Team (Late st Contact Info) Description 01/14/2024 1:[address] [facility] Medical Group Family Medicine at [address] [place] [address] Chris Bean MD [address] [facility] [facility] [address] [place] [address] [place] [address] Chronic bilateral low back pain without sciatica (Primary Dx); Thoracic radiculopathy Social History Tobacco Use Types Packs/Day Years [...] on file documented as of this encounter Last Filed Vital Signs Vital Sign Reading Time Taken Comments Blood Pressure - - Pulse - - Temperature - - Respiratory Rate - - Oxygen Saturation - - Inhaled Oxygen Concentration - - Weight 58.1 kg (128 lb) 01/14/2024 1:04 PM CDT Height 157.5 cm (5' 2.01 ) 01/14/2024 1:04 PM CD T Body Mass Index 23.41 01/14/2024 1:04 PM CDT documented in this encounter Ordered Prescriptions Prescription Sig Dispense Quantity Refills Last Filled Start Date End Date baclofen (LIORESAL) 10 mg tabletIndications: Chronic bilateral low back pain without sciatica Take 1 tablet (10 mg total) by mouth 3 (three) times a day 90 tablet 2 01/14/2024 04/13/2024 documented in this encounter Progress Notes * Chris Bean MD - 01/14/2024 1:15 PM CDT Images from the original note were not included. Visit date: 01/14/2024 Patient ID: Gerardo Whitt is a 49 y.o. female. Chief Complaint. Chief Complaint Patient presents with Back Pain Takes flexeril and has neuropathy Went to detox to get off hydrocodone back in March and does not want to get back on narcotics HPI. Patient is a 49 y.o. female Back Pain This is a recurrent problem. The current episode started more than 1 year ago. The problem occurs constantly. The problem has been waxing and waning since onset. The pain is present in the gluteal, lumbar spine, sacro-iliac and thoracic spine. The quality of the pain is described as aching, burningand cramping. The pain radiates to the right foot and right thigh. The pain is The same all the time. The symptoms are aggravated by bending and lying down. Stiffness is present In the morning. Associated symptoms include leg pain, numbness and weakness. Pertinent negatives include no abdominal pain, chest pain, fever or headaches. Risk factors include menopause. Past Medical History: Diagnosis Date Allergy-induced asthma Anxiety Current smoker Diastolic heart failure, NYHA class 1 (CMS/HCC) ([facility]) Hypertension Intervertebral disc disorder with radiculopathy of lumbar region Migraines Past Surgical History: Procedure Laterality Date BACK SURGERY 07/2022 SECTION HYSTERECTOMY MICRODISCECTOMY LUMBAR 2014 L5-S1 TONSILLECTOMY/ADENOIDECTOMY Allergies Allergen Reactions Lisinopril Hives and Anaphylaxis Penicillins Other (See comments) Social History Tobacco Use Smoking status: Every Day Current packs/day: 0.25 Average packs/day: 0.3 packs/day for 23.7 years (5.9 ttl pk-yrs) Types: Cigarettes Start date: 05/21/2000 Smokeless tobacco: Never Substance and Sexual Activity Drug use: Not Currently Sexual activity: Defer Alcohol Use: Not At Risk (12/25/2023) AUDIT-C Frequency of Alcohol Consumption: Monthly or less Average Number of Drinks: 1 or 2 Frequency of Binge Drinking: Less than monthly Family History Problem Relation Age of Onset Diabetes Mother Dementia Father Current Medications: Outpatient Encounter Medications as of 01/14/2024 Medication Sig Dispense Refill albuterol HFA (ProAir HFA) 90 mcg/actuation inhaler Inhale 2 puffs every 4 (four) hours as needed for wheezing or shortness of breath 3 each 4 amitriptyline (ELAVIL) 25 mg tablet Take 1.5 tablets (37.5 mg total) by mouth nightly 135 tablet 3 cyclobenzaprine (FLEXERIL) 10 mg tablet Take 1 tablet (10 mg total) by mouth 3 (three) times a day as needed for muscle spasms [address] (CYMBALTA) 60 mg capsule Take 1 capsule (60 mg total) by mouth daily 90 capsule 3 metoprolol XL (TOPROL-XL) 25 mg extended release tablet Take 1 tablet (25 mg total) by mouth daily 100 tablet 1 spironolactone (ALDACTONE) 25 mg tablet Take 1 tablet (25 mg total) by mouth daily 90 tablet 3 topiramate (TOPAMAX) 100 mg tablet Take 1 tablet (100 mg total) by mouth 2 (two) times a day 180 tablet 1 baclofen (LIORESAL) 10 mg tablet Take 1 tablet (10 mg total) by mouth 3 (three) times a day 90 tablet 2 nystatin 100,000 unit/mL suspension Take 5 mL (500,000 Units total) by mouth 3 (three) times a day Swish in mouth and spit out. (Patient not taking: Reported on 01/14/2024) 473 mL 1 [DISCONTINUED] cyclobenzaprine (FLEXERIL) 10 mg tablet Take 1 tablet (10 mg total) by mouth 3 (three) times a day as needed for muscle spasms 90 tablet 3 No facility-administered encounter medications on file as of 01/14/2024. Review of Systems: Review of Systems Constitutional: Negative for fatigue, fever and unexpected weight change. Respiratory: Negative for cough and shortness of breath. Cardiovascular: Negative for chest pain and palpitations. Gastrointestinal: Negative for abdominal pain. Endocrine: Negative for cold intolerance and heat intolerance. Musculoskeletal: Positive for back pain. Skin: Negative for rash. Neurological: Positive for weakness and numbness. Negative for headaches. Psychiatric/Behavioral: Negative for agitation, behavioral problems and confusion. Ht 157.5 cm (5' 2.01 ) Wt 58.1 kg (128 lb) LMP (LMP Unknown) BMI 23.41 kg/m?? Physical Exam: Physical Exam Vitals and nursing note reviewed. Constitutional: General: She is not in acute distress. Appearance: Normal appearance. She is normal weight. She is not ill-appearing, toxic-appearing or diaphoretic. HENT: Head: Normocephalic and atraumatic. Pulmonary: Effort: Pulmonary effort is normal. Musculoskeletal: Cervical back: Normal range of motion. Neurological: General: No focal deficit present. Mental Status: She is alert and oriented to person, place, and time. Mental status is at baseline. Psychiatric: Mood and Affect: Mood normal. Behavior: Behavior normal. Thought Content: Thought content normal. Judgment: Judgment normal. Assessment & Plan: Diagnoses and all orders for this visit: Chronic bilateral low back pain without sciatica (Primary) Comments: CHronic. Uncontrolled. Discontinue Flexeril due ineffective. Start Baclofen Orders: - baclofen (LIORESAL) 10 mg tablet; Take 1 tablet (10 mg total) by mouth 3 (three) times a day Thoracic radiculopathy - MRI Thoracic Spine WO Contrast; Future This was a telemedicine visit with Gerardo Whitt alone which took place via real-time video connection. During the visit, I was located at home and the patient was located at home in the [facility]. The patient visit started at 135Pm and ended at 150PM. I have explained the option of participating in a telemedicine visit to the patient. After being given an opportunity to ask questions about and discuss this type of visit, the patient verbally consented to proceeding with the telemedicine visit. The patient understands that this service replaces an office visit and they may be billed and/or responsible for any applicable copayments. A guest was not included in this video visit. Body mass index is 23.41 kg/m??. BMI Plan: Nutrition/Activities/Behavioral Counseling. Education Provided. Chris Bean MD documented in this encounter Plan of Treatment Not on file documented as of this encounter Results * MRI Thoracic Spine WO Contrast (03/05/2024 7:12 AM JEWEL BEARING POLISHER) Anatomical Region Laterality Modality Spine N/A Magnetic Resonan ce 03/05/2024 8:43 AM JEWEL BEARING POLISHER Narrative 03/05/2024 9:54 AM JEWEL BEARING POLISHER EXAM DESCRIPTION: ?? MRI THORACIC SPINE WO [...] AM T: ??03/05/2024 9:54 AM Report ID: [id number] Reading Location: ??[id number] Procedure Note Ravi Durham MD - 03/05/2024 [...] relevant portions of CT lumbar spine without xtvfhens23/14/2022 relevant portions of MRI lumbar spine without [...] Ravi Durham M.D. MATTHEW: MATTHEW Report ID: [id number] Reading Location: [place] [address] Chris Bean MD IM MRI PROCEDURES Final Result documented in this encounter Visit Diagnoses Diagnosis Chronic bilateral low back pain without sciatica- Primary Thoracic radiculopathy Thoracic or lumbosacral neuritis or radiculitis, unspecified Thoracic radiculopathy Thoracic or lumbosacral neuritis or radiculitis, unspecified documented in this encounter Care Teams Bottom Turner Relationship Specialty Start Date End Date Chris Bean MD [address] [facility] [address] [place] [address] [place] [address] PCP - General Family Medicine 09/08/22 documented as of this encounter
--- OUTSIDE RECORDS SUMMARY | 2024-04-05 02:10 | XMS_ITS | Encounter Summary ---
Author Organization [facility] Healthcare Address [address] [place] [address] Care Team Providers Care Provider Relations Specialist Name Role Phone Chris Bean MD Primary Care Provider [phone] Reason for Visit * Reason Onset Date Comments Mouth Lesions 01/11/2024 oral symptoms 01/11/2024 Encounter Details Date Type Department Care Team (Late st Contact Info) Description 01/11/2024 Nurse Triage [facility] Medical Group Family Medicine at [address] [place] [address] Olivia Duran, RN Social History Tobacco Use Types Packs/Day Years [...] encounter Miscellaneous Notes * Telephone Encounter - Olivia Duran RN - 01/11/2024 2:52 PM CDT Pt calls to report about a month ago she noticed canker sores in her mouth, tongue samaniego. Back of throat samaniego. Feels like she burnt her mouth. Pain with eating. Eating and drinking ok. Sores just inand around the lips. Tongue is very sore. Her voice sound raspy . Pt thinks it is because she did not get a lot of sleep last night. Pt is home with her son who was diagnosed COVID+ and pt would prefer to have [facility] visit tonight. polygraph technician recommends OV, NO appt avail so [facility] appt made for today. Pt aware to complete echeck in 30min early. Reason for Disposition Mouth is painful Large blisters in mouth (i.e., fluid filled bubbles or sacs) Protocols used: Mouth [id number], Mouth Mkkk-BVAWM-VT * Telephone Encounter - Rebecca Duke RN - 01/11/2024 2:35 PM CDT Regarding: tongue samaniego and hurts, canker sores under lips ----- Message from Roseline Her sent at 01/11/2024 2:33 PM CDT ----- Symptom Based Call Chief Complaint(s): tongue samaniego and hurts, canker sores under lips Duration: a month What type of symptom(s) is the patient experiencing? Non-Emergent. Is this a new or reoccurring symptom(s)? new What have you tried to help your symptom(s)? Oragel Why was appointment not scheduled? Requesting advice from clinical velvet steamer. Additional Comments: Patient stated that she is a smoker and wanted to know if she needed to be concerned? Does message need to be routed? Yes-Action Needed documented in this encounter Plan of Treatment Not on file documented as of this encounter Visit Diagnoses Not on filedocumented in this encounter Care Teams Provider Relations Specialist Relationship Specialty Start Date End Date Chris Bean MD [address] [facility] [address] [place] [address] [place] [address] PCP - General Family Medicine 09/08/22 documented as of this encounter
--- OUTSIDE RECORDS SUMMARY | 2024-04-05 02:11 | XMS_ITS | Encounter Summary ---
Author Organization [facility] Healthcare Address [address] [place] [address] Care Team Providers Care Knitting Tester Name Role Phone Chris Bean MD Primary Care Provider Reason for Visit * Reason Onset Date Comments FMLA 10/24/2023 Encounter Details Date Type Department Care Team (Late st Contact Info) Description 10/24/[address] [facility] Medical Group Family Medicine at [address] [phone] Chris Bean MD [address] [place] [address] [facility] Social History Tobacco Use Types Packs/Day Years Used Date Smoking Tobacco: Every Day Cigarettes 0.3 23.9 Started: 05/21/2000 Smokeless Tobacco: Never Alcohol Use Standard Drinks/Week Comments Yes 0 (1 standard drink = 0.6 oz pur e alcohol) daily AUDIT-C Answer Date Recorded Q1: How often do you have a drink containing alcohol? Never 09/20/2023 Q2: How many drinks containi ng alcohol do you have on a typical day when you are drinking? Patient does not drink Q3: How often do you have si x or more drinks on one occasion? Never 09/20/2023 PHQ-2 Answer Date Recorded PHQ-2 Total Score [...] encounter Miscellaneous Notes * Telephone Encounter - Kyara Nj MA - 10/31/2023 2:57 PM CDT Completed, on Dr Bean desk for signature * Telephone Encounter - Kyara Nj MA - 10/24/2023 4:23 PM CDT Type of Paperwork: FMLA Date Received: 10/23/2023 Date Paperwork Due: Mail/Fax/Business Planning Manager: Patient has been informed that they will be contacted by phone or my chart message when paperwork has been completed. Left voice message to call back for patient @ 425 pm I am off and Sunday I will reach out to patient on Saturday 10/28 documented in this encounter Plan of Treatment Not on file documented as of this encounter Visit Diagnoses Not on filedocumented in this encounter Care Teams Knitting Tester Relationship Specialty Start Date End Date Chris Bean MD [address] [facility] [address] [place] [address] [place] [address] PCP - General Family Medicine 09/08/22 documented as of this encounter
--- OUTSIDE RECORDS SUMMARY | 2024-04-05 02:11 | XMS_ITS | Encounter Summary ---
Author Organization [facility] Healthcare Address [address] [place] [address] Care Team Providers Care Cloth Drier Name Role Phone Chris Bean MD Primary Care Provider [phone] Reason for Referral * Diagnostic Imaging (Routine) - Closed Specialty Diagnoses / Procedures Referred By Contalexsander t Referred To Contact Diagnoses Elevated liver enzymes Procedures US Liver Chris Bean MD [address] [place] [address] DR GARDNER [address] [place] [address] Phone: tel: fax: [address] [phone] Referral ID Status Reason Start Date Expiration Date Visits Re quested Visits Authorized [id number] Closed 09/05/2023 10/04/2024 1 1 Reason for Visit * Reason Onset Date Comments Test Results 09/05/2023 Encounter Details Date Type Department Care Team (Late st Contact Info) Description 09/05/[address] [facility] Medical [facility] Family Medicine at [address] [place] [phone] Chris Bean MD [address] [place] [address] DR G[address]NER [address] [place] [phone] Test Results Social History Tobacco Use Types Packs/Day Years [...] as of this encounter Miscellaneous Notes * Addendum Note - Belkys Akbar RN - 09/21/2023 11:06 AM CDTAddended by: BELKYS AKBAR on: 09/21/2023 11:06 AM Modules accepted: Orders * Addendum Note - Belkys Akbar RN - 09/21/2023 11:05 AM CDTAddended by: BELKYS AKBAR on: 09/21/2023 11:05 AM Modules accepted: Orders * Telephone Encounter - Belkys Akbar RN - 09/05/2023 3:03 PM CDT Called and left detailed voicemail about orders placed. * Telephone Encounter - Belkys Akbar RN - 09/05/2023 9:46 AM CDT ----- Message from Chris Bean MD sent at 09/05/2023 7:14 AM CDT ----- Recommend to recheck Vitamin B12. Mildly Elevated Liver enzymes-Recommend Liver Ultrasound. Otherwise Elevated Cholesterol. Repeat Fasting Lipid Profile in 12 months. Aggressive Therapeutic Lifestyle changes: 1.Cardio and Resistance Training Exercises 2. Unprocessed Predominantly Plant Source Diet. 3. Reduce Saturated/Trans/Cholesterol/omega-6 fat from diet. 4. Recommended [place]-3/Towns-unsaturated(MUFA)/Poly-unsaturated(PUFA) Rich Diet: Flax Seeds, Walnuts, [place] Nuts, Mushrooms, See-weed/Sea Vegetables 5. Oil free lifestyle, if you have to, then prefer Extra [place] Cold Pressed [place] or Avocado Oil. documented in this encounter Plan of Treatment Not on file documented as of this encounter Procedures Procedure Name Priority Date/Time Associated Diagnosis Comments VITAMIN B12 Routine 12/04/2023 9:36 AM CDT Red blood cell abnormality LIPID PANEL Routine 12/04/2023 9:34 AM CDT Screening for lipoid disorders documented in this encounter Results * Vitamin B12 (12/04/2023 9:36 AM CDT) Vitamin B12 630 232 - 1,245 pg/mL [facility] - 01 Blood 12/04/2023 9:36 AM CDT 12/04/2023 Narrative [facility] - 12/05/2023 3:35 AM CDT Performed at: ??01 - [facility] [address] ??[id number] Program Therapist: Zhao Pugh PhD, Phone: ??[phone] Chris Bean MD LAB BLOOD ORDERABLES Final Resul t Performing Organization Address [facility]/ZIP Co de Phone Number [employer]Search[employer] [facility] - 01 * Lipid panel (12/04/2023 9:34 AM CDT) Cholesterol 187 100 - 199 mg/dL [facility] - 01 Triglycerides 86 0 - 149 mg/dL [facility] - 01 HDL Cholesterol 100 >39 mg/dL [facility] - 01 VLDL 15 5 - 40 mg/dL [facility] - 01 LDL, calculated 72 0 - 99 mg/dL [facility] - 01 Blood 12/04/2023 9:34 AM CDT 12/04/2023 Narrative [facility] - 12/05/2023 3:35 AM CDT Performed at: ??01 - [facility] ??[id number] Program Therapist: Zhao Pugh PhD, Phone: ??[phone] Chris Bean MD LAB BLOOD ORDERABLES Final Resul t Performing Organization Address [facility] Co de Phone Number [employer] [facility] - 01 * US Liver (09/12/2023 9:53 AM CDT) Anatomical Region Laterality Modality Abdomen N/A Ultrasound 09/12/2023 2:29 PM CDT Narrative 09/12/2023 2:31 PM CDT EXAM DESCRIPTION: ?? US LIVER REASON FOR STUDY: ?? elevated liver enzymes ?? TECHNIQUE: Ultrasound of the right upper quadrant of the abdomen was performed with grayscale and color doppler. COMPARISON: ?? None FINDINGS: PANCREAS: ?? Visualized portions of the pancreas are within normal limits. Portions of the pancreatic body and tail are obscured due to bowel gas. LIVER: ?? Normal in size. ??Borderline increased echogenicity. ??Normal echotexture. ??No definite liver lesion is seen on the images provided by the performing lang interpreter. ??Antegrade flow within the visualized main portal vein. GALLBLADDER: ?? Normal in size and wall thickness. ??Possible small amount of dependent sludge versus artifact. ??No pericholecystic fluid. ??Negative sonographic Yip sign as per the performing lang interpreter. BILIARY: ?? There is no intrahepatic or extrahepatic biliary ductal dilatation. Common bile duct measures ??3 mm ??in diameter. RIGHT KIDNEY: Normal in size. ??Measures 9.1 cm. ??No hydronephrosis. IMPRESSION: 1. ?? Borderline hepatic steatosis. 2. ?? Possible small amount of gallbladder sludge. ??No sonographic evidence of acute cholecystitis. THIS IS AN ELECTRONICALLY VERIFIED FINAL REPORT 09/12/2023 2:31 PM - Electronically signed by ??Osman Tinajero M.D. AG D: ??09/12/2023 2:31 PM T: Report ID: [id number] Reading Location: ??[id number] Procedure Note Osman Tinajero MD - 09/12/2023 EXAM DESCRIPTION: US LIVER REASON FOR STUDY: elevated liver enzymes TECHNIQUE: Ultrasound of the right upper quadrant of the abdomen wasperformed with grayscale and color doppler. COMPARISON: None FINDINGS: PANCREAS: Visualized portions of the pancreas are withinnormal limits. Portions of the pancreatic body and tail are obscured due to bowel gas. LIVER: Normal in size. Borderline increased echogenicity. Normal echotexture. No definite liver lesion is seen on the images provided bythe performing lang interpreter. Antegrade flow within the visualized main portal vein. GALLBLADDER: Normal in size and wall thickness. Possible small amountof dependent sludge versus artifact. No pericholecystic fluid. Negative sonographic Yip sign as per the performing lang interpreter. BILIARY: There is no intrahepatic or extrahepatic biliary ductaldilatation. Common bile duct measures 3 mm in diameter. RIGHT KIDNEY: Normal in size. Measures 9.1 cm. No hydronephrosis. IMPRESSION: 1. Borderline hepatic steatosis. 2. Possible small amount of gallbladder sludge. No sonographic evidenceof acute cholecystitis. THIS IS AN ELECTRONICALLY VERIFIED FINAL REPORT 09/12/2023 2:31 PM - Electronically signed by Osman Tinajero M.D. AG T: Report ID: [id number] Reading Location: [id number] Chris Bean MD IM US PROCEDURES Final Result documented in this encounter Visit Diagnoses Diagnosis Screening for lipoid disorders- Primary Red blood cell abnormality Other abnormality of red blood cells Elevated liver enzymes Other nonspecific abnormal serum enzyme levels Elevated liver enzymes Other nonspecific abnormal serum enzyme levels documented in this encounter Care Teams Cloth Drier Relationship Specialty Start Date End Date Chris Bean MD [address] [facility] [address] G[address] [place] [address] PCP - General Family Medicine 09/08/22 documented as of this encounter
--- OUTSIDE RECORDS SUMMARY | 2024-04-05 02:11 | XMS_ITS | Encounter Summary ---
Author Organization [facility] Healthcare Address [address] [place] [address] Care Team Providers Care Neuropsychiatrist Name Role Phone Eloy Leonard MD Primary Care Provider [phone] Reason for Visit * Reason Comments Follow-up Request for letterDi scuss anxiety med and something for back pain Encounter Details Date Type Department Care Team (Late st Contact Info) Description 09/20/2023 10:00 AM CDT Office Visit [facility] Medical Group Family Medicine at [address] [place] [phone] Eloy Leonard MD [address] [place] [id number] Generalized anxiety disorder; Migraine without aura and without status migrainosus, not intractable Social History Tobacco Use Types Packs/Day Years [...] you are drinking? Patient does not drink 06/06/202 4 Q3: How often do you have si [...] Sign Reading Time Taken Comments Blood Pressure 88/48 09/20/2023 10:28 AM CDT Pulse 57 09/20/2023 10:28 AM CDT Temperature 36.5 ??C (97.7 ??F) 09/20/2023 10:28 AM C DT Respiratory Rate 18 09/20/2023 10:28 AM CDT Oxygen Saturation 98% 09/20/2023 10:28 AM CDT Inhaled Oxygen Concentration - - Weight 58.8 kg (129 lb 9.6 oz) 09/20/2023 10:28 AM CDT Height 157.5 cm (5' 2 ) 09/20/2023 10:28 AM CDT Body Mass Index 23.7 09/20/2023 10:28 AM CDT documented in this encounter Ordered Prescriptions Prescription Sig Dispense Quantity Refills Last Filled Start Date End Date topiramate (TOPAMAX) 100 mg tabletIndications: Migraine without aura and without status migrainosus, not intractable Take 1 tablet (100 mg total) by mouth 2 (two) times a day 180 tablet 1 09/20/2023 4 cyclobenzaprine (FLEXERIL) 10 mg tablet Take 1 tablet (10 mg total) by mouth 3 (three) times a day as needed for muscle spasms 90 tablet 3 09/20/[address] (CYMBALTA) 60 mg capsuleIndications :Generalized anxiety disorder Take 1 capsule (60 mg total) by mouth daily 90 capsule 3 09/20/2023 4 documented in this encounter Progress Notes * Eloy Leonard MD - 09/20/2023 10:00 AM CDT Images from the original note were not included. Visit date: 09/20/2023 Patient ID: Gerardo Whitt is a 48 y.o. female. Chief Complaint. Chief Complaint Patient presents with Follow-up Request for letter Discuss anxiety med and something for back pain HPI. Patient is a 48 y.o. female HPI Following Failed Back surgery. Recently been for Hydrocodone withdrawal at [facility]. On [place]. Patient follows Pain mgmt at [place]. 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 Patient had two back surgeries, 2012 and 07/2022. Lower Back Surgeries. Patient has recurrent fall due to legs giving out. Patient uses alcohol to cope up with chronic pain, right now she is not on opioid. Past Medical History: Diagnosis Date Allergy-induced asthma Anxiety Current smoker Diastolic heart failure, NYHA class 1 (CMS/HCC) ([facility]) Hypertension Intervertebral disc disorder with radiculopathy of lumbar region Migraines Past Surgical History: Procedure Laterality Date BACK SURGERY 07/2022 SECTION HYSTERECTOMY MICRODISCECTOMY LUMBAR 2014 L5-S1 TONSILLECTOMY/ADENOIDECTOMY Allergies Allergen Reactions Lisinopril Hives and Anaphylaxis Penicillins Other (See comments) Social History Tobacco Use Smoking status: Every Day Current packs/day: 0.25 Average packs/day: 0.3 packs/day for 23.3 years (5.8 ttl pk-yrs) Types: Cigarettes Start date: 05/21/2000 Smokeless tobacco: Never Substance and Sexual Activity Drug use: Not Currently Sexual activity: Defer Alcohol Use: Not At Risk (09/20/2023) AUDIT-C Frequency of Alcohol Consumption: Never Average Number of Drinks: Patient does not drink Frequency of Binge Drinking: Never Family History Problem Relation Age of Onset Diabetes Mother Dementia Father Current Medications: Outpatient Encounter Medications as of 09/20/2023 Medication Sig Dispense Refill albuterol HFA (ProAir HFA) 90 mcg/actuation inhaler Inhale 2 puffs every 4 (four) hours as needed for wheezing or shortness of breath 3 each 4 amitriptyline (ELAVIL) 25 mg tablet TAKE 1 AND 1/2 TABLETS BY MOUTH EVERY NIGHT AT BEDTIME 45 tablet 3 diclofenac sodium (VOLTAREN) 1 % gel Apply 4 g topically 3 (three) times a day 30 g 1 metoprolol XL (TOPROL-XL) 25 mg extended release tablet TAKE 1 TABLET(25 MG) BY MOUTH DAILY 90 tablet 1 spironolactone (ALDACTONE) 25 mg tablet Take 1 tablet (25 mg total) by mouth daily [DISCONTINUED] cyclobenzaprine (FLEXERIL) 10 mg tablet Take 1 tablet (10 mg total) by mouth 3 (three) times a day as needed for muscle spasms 90 tablet 3 [DISCONTINUED] DULoxetine DR (CYMBALTA) 30 mg capsule Take 1 capsule (30 mg total) by mouth 2 (two)times a day 60 capsule 2 [DISCONTINUED] topiramate (TOPAMAX) 100 mg tablet TAKE 1 TABLET(100 MG) BY MOUTH TWICE DAILY 180 tablet 1 cyclobenzaprine (FLEXERIL) 10 mg tablet Take 1 tablet (10 mg total) by mouth 3 (three) times a day as needed for muscle spasms [address] (CYMBALTA) 60 mg capsule Take 1 capsule (60 mg total) by mouth daily 90 capsule 3 topiramate (TOPAMAX) 100 mg tablet Take 1 tablet (100 mg total) by mouth 2 (two) times a day 180 tablet 1 [DISCONTINUED] buprenorphine-naloxone (SUBOXONE) 8-2 mg per SL tablet Place 1 tablet under the tongue daily for 5 days (Patient not taking: Reported on 09/20/2023) 5 tablet 0 No facility-administered encounter medications on file as of 09/20/2023. Review of Systems: Review of Systems Constitutional: Negative for fatigue, fever and unexpected weight change. Respiratory: Negative for cough and shortness of breath. Cardiovascular: Negative for chest pain and palpitations. Gastrointestinal: Negative for abdominal pain. Endocrine: Negative for cold intolerance and heat intolerance. Skin: Negative for rash. Neurological: Negative for headaches. Psychiatric/Behavioral: Negative for agitation, behavioral problems and confusion. BP (!) 88/48 (BP Location: Left arm, Patient Position: Sitting) Pulse 57 Temp 36.5 ??C (97.7 ??F) Resp 18 Ht 157.5 cm (5' 2 ) Wt 58.8 kg (129 lb 9.6 oz) LMP (LMP Unknown) SpO2 98% BMI23.70 kg/m?? Physical Exam: Physical Exam Vitals and nursing note reviewed. Constitutional: General: She is not in acute distress. Appearance: She is well-developed. She is not diaphoretic. HENT: Head: Normocephalic and atraumatic. Eyes: Pupils: Pupils are equal, round, and reactive to light. Cardiovascular: Rate and Rhythm: Normal rate and regular rhythm. Heart sounds: Normal heart sounds. Pulmonary: Effort: Pulmonary effort is normal. Breath sounds: Normal breath sounds. Musculoskeletal: Cervical back: Normal, normal range of motion and neck supple. Thoracic back: Normal. Lumbar back: Spasms and tenderness present. No swelling, edema, deformity, signs of trauma, lacerations or bony tenderness. Decreased range of motion. Negative right straight leg raise test and negative left straight leg raise test. No scoliosis. Neurological: Mental Status: She is alert and oriented to person, place, and time. Comments: Right lateral side of the leg numbess. Psychiatric: Behavior: Behavior normal. Thought Content: Thought content normal. Judgment: Judgment normal. Assessment & Plan: Diagnoses and all orders for this visit: Generalized anxiety disorder Comments: Chronic. Uncontrolled. start Cymbalta. Follows [facility]. Orders: - DULoxetine DR (CYMBALTA) 60 mg capsule; Take 1 capsule (60 mg total) by mouth daily - Ambulatory referral to Psychology; Future - Ambulatory referral to Psychiatry; Future Migraine without aura and without status migrainosus, not intractable - topiramate (TOPAMAX) 100 mg tablet; Take 1 tablet (100 mg total) by mouth 2 (two) times a day Other orders - cyclobenzaprine (FLEXERIL) 10 mg tablet; Take 1 tablet (10 mg total) by mouth 3 (three) times a day as needed for muscle spasms Body mass index is 23.7 kg/m??. BMI Plan: Nutrition/Activities/Behavioral Counseling. Education Provided. Eloy Leonard MD documented in this encounter Miscellaneous Notes * Addendum Note - Eloy Leonard MD - 09/20/2023 10:00 AM CDTAddended by: ELOY LEONARD on: 09/20/2023 11:05 AM Modules accepted: Orders documented in this encounter Plan of Treatment Not on file documented as of this encounter Visit Diagnoses Diagnosis Generalized anxiety disorder Migraine without aura and without status migrainosus, not intractable documented in this encounter Discontinued Medications Medication Sig Discontinue Reason Start Date End Da te buprenorphine-naloxone (SUBOXONE) 8-2 mg per SL tablet Place 1 tablet under the tongue daily for 5 days Therapy completed 03/27/2023 09/20/[address] (CYMBALTA) 30 mg capsuleIndications:Gener alized anxiety disorder Take 1 capsule (30 mg total) by mouth 2 (two) times a day Reorder 03/28/2023 09/20/2023 topiramate (TOPAMAX) 100 mg tabletIndications:Migrai ne without aura and without status migrainosus, not intractable TAKE 1 TABLET(100 MG) BY MOUTH TWICE DAILY Reorder 05/29/2023 09/20/2023 cyclobenzaprine (FLEXERIL) 10 mg tablet Take 1 tablet (10 mg total) by mouth 3 (three) times a day as needed for muscle spasms Reorder 06/06/2023 09/20/2023 documented as of this encounter Care Teams Neuropsychiatrist Relationship Specialty Start Date End Date Eloy Leonard MD [address] [facility] [address] G[address]NER [address] [place] [id number] PCP - General Family Medicine 09/08/22 documented as of this encounter
--- OUTSIDE RECORDS SUMMARY | 2024-04-05 02:11 | XMS_ITS | Encounter Summary ---
Author Organization [facility] Healthcare Address [address] [place] [address] Care Team Providers Care Enterostomal Therapy Nurse Name Role Phone Chris Bean MD Primary Care Provider [phone] Reason for Visit * Reason Onset Date Comments Medical Question/Miscellaneous 10/02/2023 Encounter Details Date Type Department Care Team (Late st Contact Info) Description 10/02/[address] [facility] Medical Group Family Medicine at [address] [phone] Chris Bean MD [address] [place] [phone] Medical Question/Miscellaneous Social History Tobacco Use [...] Telephone Encounter - Kyara Nj MA - 10/16/2023 11:31 AM CDT Spoke to patient She need our fax number for her reference investigator This has been addressed * Telephone Encounter - Viky Rock - 10/16/2023 11:29 AM CDT Call Back Caller???s Concern: Patient returning call to office, warm transferred per instructions Does message need to be routed? No * Telephone Encounter - Kyara Nj MA - 10/16/2023 11:27 AM CDT Tried to call pt, call would not go through Will try later Please transfer to me if she returns call * Telephone Encounter - Zayra Georges - 10/15/2023 11:40 AM CDT Call Back Caller???s Concern: Patient is calling stating that she is needing additional paperwork completed. She would like a call back from [facility] to further discuss. Please advise. Does message need to be routed? 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 Does message need to be routed? No * Telephone Encounter - Cece Buckley - 10/08/2023 10:34 AM CDT Call Back Caller???s Concern: Pt calling back and attempted to warm transfer but was unable to connect with back line. - 1st time received voice mail & 2nd time hung up on & disconnected. Please call her back to follow up. Does message need to be routed? Yes-Action Needed * Telephone Encounter - Kyara Nj MA - 10/03/2023 10:42 AM CDT Left vm to call back @ 1045 am, please transfer back when she returns call. 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 Pt is requesting medical paperwork per her quality assurance analyst to proceed with divorce and disability case. Please call pt to get specifics of what she is wanting besides a letter from the doctor stating her disabilities/ and impair ment that impact her life. Pt is in process of filing for full disability and also needs it from her divorce proceedings since she is still in pain since back surgery did not work. Please follow up with her as she was not sure or clear what exact paperwork she needed Does message need to be routed? Yes-Action Needed * Telephone Encounter - Zayra Georges - 10/02/2023 11:05 AM CDT Medical Question/Miscellaneous Caller???s Concern: Patient is calling stating that she asked her PCP to write her a note for her work capability for disability and her quality assurance analyst. She said that she state she brought paperwork at herlast appointment to inform PCP of what she is needing. She would like a call back to further discusplease advise. Does message need to be routed? Yes-Action Needed documented in this encounter Plan of Treatment Not on file documented as of this encounter Visit Diagnoses Not on filedocumented in this encounter Care Teams Enterostomal Therapy Nurse Relationship Specialty Start Date End Date Chris Bean MD [address] [facility] [place] [address] PCP - General Family Medicine 09/08/22 documented as of this encounter
--- OUTSIDE RECORDS SUMMARY | 2024-04-05 02:11 | XMS_ITS | Encounter Summary ---
Author Organization [facility] Healthcare Address [address] [place] [address] Care Team Providers Care Housekeeping Assistant Name Role Phone Chris Bean MD Primary Care Provider [phone] Reason for Referral * Diagnostic Imaging (Routine) - Closed Specialty Diagnoses / Procedures Referred By Ralph vásquez Referred To Contact Diagnoses Elevated liver enzymes Procedures US Liver Chris Bean MD [address] [place] [address] DR GARDNER [address] [place] [address] Phone: tel: fax: [address] [phone] Referral ID Status Reason Start Date Expiration Date Visits Re quested Visits Authorized [id number] Closed 09/05/2023 10/04/2024 1 1 Reason for Visit * Diagnostic Imaging (Routine) - Closed Specialty Diagnoses / Procedures Referred By Ralph vásquez Referred To Contact Diagnoses Elevated liver enzymes Procedures US Liver Chris Bean MD [address] [place] [address] DR GARDNER [address] [place] [address] Phone: tel: fax: [address] [phone] Referral ID Status Reason Start Date Expiration Date Visits Re quested Visits Authorized [id number] Closed 09/05/2023 10/04/2024 1 1 Encounter Details Date Type Department Care Team (Latest Contact Info) Description 09/12/2023 8:40 AM CDT - 09/12/2023 11:59 PM CDT Hospital Encounter [facility] [address] [place] [address] Elevated liver enzymes Discharge Disposition: Discharge to home or self care Social History Tobacco Use Types Packs/Day Years Used Date Smoking Tobacco: Every Day Cigarettes 0.3 23.9 Started: 05/21/2000 Smokeless Tobacco: Never Alcohol Use Standard Drinks/Week Comments Yes 0 (1 standard drink = 0.6 oz pur e alcohol) daily AUDIT-C Answer Date Recorded Q1: How often do you have a drink containing alcohol? Never 03/28/2023 Q2: How many drinks containi ng alcohol do you have on a typical day when you are drinking? Patient does not drink Q3: How often do you have si x or more drinks on one occasion? Never 03/28/2023 PHQ-2 Answer Date Recorded PHQ-2 Total Score (If total score is 3 or more points, staff should administer the PHQ-9) 0 06/01/2022 Personal Safety Answer Date Recorded Have you [...] or shortness of breath 3 each 4 06/01/2022 4 amitriptyline (ELAVIL) 25 mg tabletIndications :Primary insomnia TAKE 1 AND 1/2 TABLETS BY MOUTH EVERY NIGHT AT BEDTIME 45 tablet 3 08/31/2023 4 buprenorphine-nal oxone (SUBOXONE) 8-2 mg per SL tablet Place 1 tablet under the tongue daily for 5 days 5 tablet 03/27/2023 4 cyclobenzaprine (FLEXERIL) 10 mg tablet Take 1 tablet (10 mg total) by mouth 3 (three) times a day as needed for muscle spasms 90 tablet 3 06/06/2023 4 diclofenac sodium (VOLTAREN) 1 % gel Apply 4 g topically 3 (three) times a day 30 g 1 03/27/[address] (CYMBALTA) 30 mg capsuleIndication s:Generalized anxiety disorder Take 1 capsule (30 mg total) by mouth 2 (two) times a day 60 capsule 2 03/28/2023 4 metoprolol XL (TOPROL-XL) 25 mg extended release tabletIndications :Benign essential HTN TAKE 1 TABLET(25 MG) BY MOUTH DAILY 90 tablet 1 05/29/2023 4 spironolactone (ALDACTONE) 25 mg tablet Take 1 tablet (25 mg total) by mouth daily 4 topiramate (TOPAMAX) 100 mg tabletIndications :Migraine without aura and without status migrainosus, not intractable TAKE 1 TABLET(100 MG) BY MOUTH TWICE DAILY 180 tablet 1 05/29/2023 4 documented as of this encounter Discharge Disposition Disposition Code Departure Means Destination Discharge to home or self care documented in this encounter Plan of Treatment Not on file documented as of this encounter Procedures Procedure Name Priority Date/Time Associated Diagnosis Comments US LIVER Schedule Routine, Read Routine (OP Routine) 09/12/2023 9:53 AM CDT Elevated liver enzymes documented in this encounter Results * US Liver (09/12/2023 9:53 AM CDT) [...] on the images provided by the performing compliance analyst. ??Antegrade flow within the visualized main portal vein. GALLBLADDER: ?? Normal in size and wall thickness. ??Possible small amount of dependent sludge versus artifact. ??No pericholecystic fluid. ??Negative sonographic Yip sign as per the performing compliance analyst. BILIARY: ?? There is no intrahepatic or [...] D: ??09/12/2023 2:31 PM T: Report ID: [id number] Reading Location: ??[id number] Procedure Note Osman Tinaejro MD - 09/12/2023 EXAM DESCRIPTION: US LIVER [...] seen on the images provided bythe performing compliance analyst. Antegrade flow within the visualized main portal vein. GALLBLADDER: Normal in size and wall thickness. Possible small amountof dependent sludge versus artifact. No pericholecystic fluid. Negative sonographic Yip sign as per the performing compliance analyst. BILIARY: There is no intrahepatic or extrahepatic [...] Osman Tinajero M.D. AG T: Report ID: [id number] Reading Location: [place] [address] us Chris Bean MD IM US PROCEDURES Final Result documented in this encounter Visit Diagnoses Diagnosis Elevated liver enzymes Other nonspecific abnormal serum enzyme levels documented in this encounter Care Teams Housekeeping Assistant Relationship Specialty Start Date End Date Chris Bean MD [address] [facility] [address] GARDNER [address] [place] [address] PCP - General Family Medicine 09/08/22 documented as of this encounter
--- OUTSIDE RECORDS SUMMARY | 2024-04-05 02:11 | XMS_ITS | Encounter Summary ---
Author Organization [facility] Healthcare Address [address] [place] [address] Care Team Providers Care Retail Field Merchandiser Name Role Phone Chris Bean MD Primary Care Provider [phone] Reason for Visit * Reason Onset Date Comments Test Results 09/20/2023 Encounter Details Date Type Department Care Team (Late st Contact Info) Description 09/20/2023 Telephone [facility] Medical Group Family Medicine at [address] [address] Chris Bean MD [address] [place] [id number] Test Results Social History Tobacco Use [...] encounter Miscellaneous Notes * Telephone Encounter - Kimberlyn Wilde RN - 09/21/2023 11:04 AM CDT Spoke with patient and gave results Negative for Gallbladder attack You have borderline fatty liver disease - reduce saturated fats in your diet, avoid alcohol and tobacco and have regular exercise. * Telephone Encounter - Kimberly Billingsley - 09/21/2023 11:00 AM CDT Call Back Caller???s Concern: Patient called in regards to confirming scripts were sent to pharmacy 09/20/23; ELECTRONIC TECHNOLOGIST confirmed scripts were sent per Meds Tab, ELECTRONIC TECHNOLOGIST then noticed [facility] left VM for patient regarding results. ELECTRONIC TECHNOLOGIST warm transferred patient per Kimberlyn's instruction Does message need to be routed? No * Telephone Encounter - Kimberlyn Wilde RN - 09/20/2023 1:56 PM CDT Called and left voicemail for patient warm transfer to [facility] * Telephone Encounter - Angelica Lombardi - 09/20/2023 1:24 PM CDT Test Result Request Type of test: US Liver + recent lab results Date of test: labs 5/21, US 09/11 Where was the test performed at?[facility] Did provider dictate result yet? Yes Where were results relayed from in the chart? Labs Tab + Imaging Tab Additional Questions/Comments: Patient stated she forgot to inquire about results during her OV today. ELECTRONIC TECHNOLOGIST read result note, but patient has further questions. Does message need to be routed? Yes-Action Needed documented in this encounter Plan of Treatment Not on file documented as of this encounter Visit Diagnoses Not on filedocumented in this encounter Care Teams Retail Field Merchandiser Relationship Specialty Start Date End Date Chris Bean MD [address] [facility] [address] GARDNER [address] [place] [address] PCP - General Family Medicine 09/08/22 documented as of this encounter
--- OUTSIDE RECORDS SUMMARY | 2024-04-05 02:11 | XMS_ITS | Encounter Summary ---
Author Organization [facility] Healthcare Address [address] [place] [address] Care Team Providers Care Box Hinge And Lock Attacher Name Role Phone Eloy Leonard MD Primary Care Provider [phone] Reason for Referral * Diagnostic Imaging (Routine) - Closed Specialty Diagnoses / Procedures Referred By Ralph vásquez Referred To Contact Diagnoses Screening mammogram, encounter for Procedures SCREENING MAMMOGRAM BILATERAL W Eloy Adam MD [address] [place] [address] DR GARDNER [address] [place] [address] Phone: tel: fax: [address] [phone] Referral ID Status Reason Start Date Expiration Date Visits Re quested Visits Authorized [id number] Closed 12/25/2023 01/23/2025 1 1 Reason for Visit * Reason Comments adult wellness physical Encounter Details Date Type Department Care Team (Late st Contact Info) Description 12/25/2023 10:15 AM CDT Office Visit [facility] Family Medicine at [address] [address] Eloy Leonard MD [address] [place] [address] DR GARDNER [address] [place] [address] Encounter for annual health examination (Primary Dx); Screening mammogram, encounter for; Migraine without aura and without status migrainosus, not intractable; Benign essential HTN; Generalized anxiety disorder; Primary insomnia Social History Tobacco Use Types Packs/Day Years [...] CDT Temperature 36.3 ??C (97.3 ??F) 12/25/2023 1 0:05 AM CDT Respiratory Rate 18 12/25/2023 10:0 5 AM CDT Oxygen Saturation 98% 12/25/2023 10: 05 AM CDT Inhaled Oxygen Concentration - - Weight 57.5 kg (126 lb 11.2 oz) 024 10:05 AM CDT Height 157.5 cm (5' 2 ) 12/25/2023 10:0 5 AM CDT Body Mass Index 23.17 12/25/2023 10:05 AM CDT documented in this encounter Ordered Prescriptions Prescription Sig Dispense Quantity Refills Last Filled Start Date End Date albuterol HFA (ProAir HFA) 90 mcg/actuation inhaler Inhale 2 puffs every 4 (four) hours as needed for wheezing or shortness of breath 3 each 4 12/25/2023 5 amitriptyline (ELAVIL) 25 mg tabletIndications: Primary insomnia Take 1.5 tablets (37.5 mg total) by mouth nightly 135 tablet 3 12/25/[address] (CYMBALTA) 60 mg capsuleIndications :Generalized anxiety disorder Take 1 capsule (60 mg total) by mouth daily 90 capsule 3 12/25/2023 5 metoprolol XL (TOPROL-XL) 25 mg extended release tabletIndications: Benign essential HTN Take 1 tablet (25 mg total) by mouth daily 100 tablet 1 12/25/2023 spironolactone (ALDACTONE) 25 mg tablet Take 1 tablet (25 mg total) by mouth daily 90 tablet 3 12/25/2023 5 topiramate (TOPAMAX) 100 mg tabletIndications: Migraine without aura and without status migrainosus, not intractable Take 1 tablet (100 mg total) by mouth 2 (two) times a day 180 tablet 1 12/25/2023 nystatin 100,000 unit/mL suspension Take 5 mL (500,000 Units total) by mouth 3 (three) times a day Swish in mouth and spit out. 473 mL 1 12/25/2023 4 cyclobenzaprine (FLEXERIL) 10 mg tablet Take 1 tablet (10 mg total) by mouth 3 (three) times a day as needed for muscle spasms 90 tablet 3 12/25/2023 4 documented in this encounter Progress Notes * Eloy Leonard MD - 12/25/2023 10:15 AM CDT Images from the original note were not included. Visit date: 12/25/2023 Patient ID: Gerardo Whitt is a 48 y.o. female. Chief Complaint. Chief Complaint Patient presents with adult wellness physical HPI. Patient is a 48 y.o. female HPI This is a 48 y.o. female presented for annual history and physical exam. Sleep: good Stress: Stable Diet: Not on any specific Diet Exercise: irregularly Fasting Blood work: Not within last 12 months. Last Colonosocpy: Performed on [address] melissa Molina and UTD. Last Mammogram: Ordered For Today. Last Pap Smear: Ordered For Today. Lung Cancer Screening: Never Smoker Not Applicable Flu Shot: Highly Recommended Tetanus: Highly Recommended Shingle: NA. other chonic conditions: stable. Refills: Pharmacy to call. Past Medical History: Diagnosis Date Allergy-induced asthma Anxiety Current smoker Diastolic heart failure, NYHA class 1 (CMS/HCC) (HCC) Hypertension Intervertebral disc disorder with radiculopathy of lumbar region Migraines Past Surgical History: Procedure Laterality Date BACK SURGERY 07/2022 SECTION HYSTERECTOMY MICRODISCECTOMY LUMBAR 2014 L5-S1 TONSILLECTOMY/ADENOIDECTOMY Allergies Allergen Reactions Lisinopril Hives and Anaphylaxis Penicillins Other (See comments) Social History Tobacco Use Smoking status: Every Day Current packs/day: 0.25 Average packs/day: 0.3 packs/day for 23.6 years (5.9 ttl pk-yrs) Types: Cigarettes Start [...] Current Medications: Outpatient Encounter Medications as of 12/25/2023 Medication Sig Dispense Refill [DISCONTINUED] albuterol HFA (ProAir HFA) 90 mcg/actuation inhaler Inhale 2 puffs every 4 (four) hours as needed for wheezing or shortness of breath 3 each 4 [DISCONTINUED] amitriptyline (ELAVIL) 25 mg tablet TAKE 1 AND 1/2 TABLETS BY MOUTH EVERY NIGHT AT BEDTIME 45 tablet 3 [DISCONTINUED] cyclobenzaprine (FLEXERIL) 10 mg tablet Take 1 tablet (10 mg total) by mouth 3 (three) times a day as needed for muscle spasms 90 tablet 3 [DISCONTINUED] DULoxetine DR (CYMBALTA) 60 mg capsule Take 1 capsule (60 mg total) by mouth daily 90 capsule 3 [DISCONTINUED] metoprolol XL (TOPROL-XL) 25 mg extended release tablet TAKE 1 TABLET(25 MG) BY MOUTH DAILY 100 tablet 1 [DISCONTINUED] spironolactone (ALDACTONE) 25 mg tablet Take 1 tablet (25 mg total) by mouth daily [DISCONTINUED] topiramate (TOPAMAX) 100 mg tablet Take 1 tablet (100 mg total) by mouth 2 (two) times a day 180 tablet 1 albuterol HFA (ProAir HFA) 90 mcg/actuation inhaler [...] times a day 180 tablet 1 [DISCONTINUED] diclofenac sodium (VOLTAREN) 1 % gel Apply 4 g topically 3 (three) times a day (Patient not taking: Reported on 12/25/2023) 30 g 1 No facility-administered encounter medications on file as of 12/25/2023. Review of Systems: Review of Systems Constitutional: Negative for chills and fatigue. HENT: Negative for congestion, hearing loss and postnasal drip. Eyes: Negative for photophobia, discharge and visual disturbance. Respiratory: Negative for apnea, cough and chest tightness. Cardiovascular: Negative for chest pain, palpitations and leg swelling. Gastrointestinal: Negative for abdominal pain, constipation and diarrhea. Endocrine: Negative for polyuria. Genitourinary: Negative for difficulty urinating. Musculoskeletal: Negative for arthralgias and joint swelling. Allergic/Immunologic: Negative for food allergies and immunocompromised state. Neurological: Negative for dizziness, weakness and headaches. Hematological: Does not bruise/bleed easily. Psychiatric/Behavioral: Negative for behavioral problems, confusion and suicidal ideas. BP 94/60 (BP Location: Right arm, Patient Position: Sitting) Pulse 102 Temp 36.3 ??C (97.3 ??F) Resp 18 Ht 157.5 cm (5' 2 ) Wt 57.5 kg (126 lb 11.2 oz) LMP (LMP Unknown) SpO2 98% BMI 23.17 kg/m?? Physical Exam: Physical Exam Vitals and nursing note reviewed. Constitutional: General: She is not in acute distress. Appearance: She is well-developed. HENT: Head: Normocephalic and atraumatic. Right Ear: External ear normal. Left Ear: External ear normal. Nose: Nose normal. Mouth/Throat: Pharynx: No oropharyngeal exudate. Eyes: General: No scleral icterus. Right eye: No discharge. Left eye: No discharge. Conjunctiva/sclera: Conjunctivae normal. Pupils: Pupils are equal, round, and reactive to light. Neck: Thyroid: No thyromegaly. Cardiovascular: Rate and Rhythm: Normal rate and regular rhythm. Heart sounds: Normal heart sounds. No murmur heard. No friction rub. No gallop. Pulmonary: Effort: Pulmonary effort is normal. No respiratory distress. Breath sounds: Normal breath sounds. No wheezing or rales. Chest: Chest wall: No tenderness. Abdominal: General: Bowel sounds are normal. There is no distension. Palpations: Abdomen is soft. There is no mass. Tenderness: There is no abdominal tenderness. There is no guarding or rebound. Hernia: No hernia is present. Musculoskeletal: General: Normal range of motion. Cervical back: Normal range of motion and neck supple. Lymphadenopathy: Cervical: No cervical adenopathy. Skin: General: Skin is warm and dry. Capillary Refill: Capillary refill takes less than 2 seconds. Findings: No rash. Comments: No bilateral pitting edema Neurological: Mental Status: She is alert and oriented to person, place, and time. Cranial Nerves: No cranial nerve deficit. Sensory: No sensory deficit. Motor: No abnormal muscle tone. Coordination: Coordination normal. Deep Tendon Reflexes: Reflexes normal. Psychiatric: Behavior: Behavior normal. Thought Content: Thought content normal. Judgment: Judgment normal. Assessment & Plan: Diagnoses and all orders for this visit: Encounter for annual health examination (Primary) Screening mammogram, encounter for - SCREENING MAMMOGRAM BILATERAL W MIKE; Future Migraine without aura and without status migrainosus, not intractable - topiramate (TOPAMAX) 100 mg tablet; Take 1 tablet (100 mg total) by mouth 2 (two) times a day Benign essential HTN - metoprolol XL (TOPROL-XL) 25 mg extended release tablet; Take 1 tablet (25 mg total) by mouth daily Generalized anxiety disorder Comments: Chronic. Uncontrolled. cont. Cymbalta. Follows [facility] outpatient. Orders: - DULoxetine DR (CYMBALTA) 60 mg capsule; Take 1 capsule (60 mg total) by mouth daily Primary insomnia - amitriptyline (ELAVIL) 25 mg tablet; Take 1.5 tablets (37.5 mg total) by mouth nightly Other orders - spironolactone (ALDACTONE) 25 mg tablet; Take 1 tablet (25 mg total) by mouth daily - albuterol HFA (ProAir HFA) 90 mcg/actuation inhaler; Inhale 2 puffs every 4 (four) hours as needed for wheezing or shortness of breath - cyclobenzaprine (FLEXERIL) 10 mg tablet; Take 1 tablet (10 mg total) by mouth 3 (three) times a day as needed for muscle spasms Body mass index is 23.17 kg/m??. BMI Plan: Nutrition/Activities/Behavioral Counseling. Education Provided. Recommended aggressive Lifestyle modification and weight loss for improving overall weight related health conditions. Follow up in 1 or 3 months for continuing Lifestyle Medicine education and management visit. Recommend Lifestyle Seminar on Wednesdays @ 5pm. Eloy Leonard MD documented in this encounter Miscellaneous Notes * Addendum Note - Eloy Leonard MD - 12/25/2023 10:15 AM CDTAddended by: ELOY LEONARD on: 12/25/2023 10:57 AM Modules accepted: Orders documented in this encounter Plan of Treatment Scheduled Orders Name Type Priority Associated Diagnoses Orde r Schedule SCREENING MAMMOGRAM BILATERAL W MIKE Imaging Schedule Routine, Read Routine (OP Routine) Screening mammogram, encounter for Expected: 12/25/2023, Expires: 02/23/2025 documented as of this encounter Visit Diagnoses Diagnosis Encounter for annual health examination- Primary Screening mammogram, encounter for Migraine without aura and without status migrainosus, not intractable Benign essential HTN Generalized anxiety disorder Primary insomnia Persistent disorder of initiating or maintaining sleep documented in this encounter Discontinued Medications Medication Sig Discontinue Reason Start Date End Da te diclofenac sodium (VOLTAREN) 1 % gel Apply 4 g topically 3 (three) times a day Therapy completed 03/27/2023 12/25/2023 albuterol HFA (ProAir HFA) 90 mcg/actuation inhaler Inhale 2 puffs every 4 (four) hours as needed for wheezing or shortness of breath Reorder 06/01/2022 12/25/2023 spironolactone (ALDACTONE) 25 mg tablet Take 1 tablet (25 mg total) by mouth daily Reorder 12/25/2023 amitriptyline (ELAVIL) 25 mg tabletIndications:Prima ry insomnia TAKE 1 AND 1/2 TABLETS BY MOUTH EVERY NIGHT AT BEDTIME Reorder 08/31/2023 12/25/[address] (CYMBALTA) 60 mg capsuleIndications:Gene ralized anxiety disorder Take 1 capsule (60 mg total) by mouth daily Reorder 09/20/2023 12/25/2023 cyclobenzaprine (FLEXERIL) 10 mg tablet Take 1 tablet (10 mg total) by mouth 3 (three) times a day as needed for muscle spasms Reorder 09/20/2023 12/25/2023 topiramate (TOPAMAX) 100 mg tabletIndications:Migra ine without aura and without status migrainosus, not intractable Take 1 tablet (100 mg total) by mouth 2 (two) times a day Reorder 09/20/2023 12/25/2023 metoprolol XL (TOPROL-XL) 25 mg extended release tabletIndications:Benig n essential HTN TAKE 1 TABLET(25 MG) BY MOUTH DAILY Reorder 11/25/2023 12/25/2023 documented as of this encounter Care Teams Box Hinge And Lock Attacher Relationship Specialty Start Date End Date Eloy Leonard MD [address] [facility] [address] GARDNER [address] [place] [id number] PCP - General Family Medicine 09/08/22 documented as of this encounter
--- OUTSIDE RECORDS SUMMARY | 2024-04-05 02:11 | XMS_ITS | Encounter Summary ---
Author Organization [facility] Healthcare Address [address] [place] [address] Care Team Providers Care Forestry Aid Name Role Phone Chris Bean MD Primary Care Provider [phone] Encounter Details Date Type Department Care Team (Late st Contact Info) Description 09/17/2023 Nurse Triage [facility] Medical Group Family Medicine at [address] [place] [address] Chris Bean MD [address] [place] [address] [address] [place], [place] [id number] Social History Tobacco Use Types Packs/Day Years [...] encounter Miscellaneous Notes * Telephone Encounter - Yissel Franco RN - 09/17/2023 3:12 PM CDT Gerardo Whitt and mother Cece have concerns about short term memory loss. Pt and mother have noticed memory issues in the last month or more and worsening in the last 3 weeks. Pt reports drinking daily and increased stress related to current divorce and finding new apt. Pt also states she has been dropping things more often with right hand. Pt Hx of Detox at [facility] last March 2023. Pt does not feel she needs to be urgently seen today. Pt has NOV appt 09/20/23 at 1000. DISPO: See PCP within 3 days Reviewed care advice including s/s CVA and need for Emergent care if s/s worsen or new symptoms emerge. Cece verbalizes understanding and willingness to follow. Reason for Disposition Unhealthy alcohol use, known or suspected Protocols used: Alcohol Use and [id number] * Telephone Encounter - Yissel Franco RN - 09/17/2023 2:30 PM CDT Regarding: Concerns of Stroke, increased forgetfulness, slurring of speech, back pain ----- Message from Viky Mcfadden sent at 09/17/2023 2:26 PM CDT ----- Symptom Based Call Chief Complaint(s): Concerns of Stroke, increased forgetfulness, slurring of speech Duration: 2 weeks What type of symptom(s) is the patient experiencing? Red Flag. Is the patient concerned they are experiencing a medical emergency requiring an ambulance? No Additional Comments:Patient mother called in concerned due to change in behavior, states she is notacting like herself at all. PREPARED FOODS SUPERVISOR did speak to the patient briefly ,who reports that she has been Self Medicating w/ Liquor. Patient reports drinking a pint a day of vodka or tequilla since about April, Does message need to be routed? Yes-Action Needed documented in this encounter Plan of Treatment Not on file documented as of this encounter Visit Diagnoses Not on filedocumented in this encounter Care Teams Forestry Aid Relationship Specialty Start Date End Date Chris Bean MD [address] [facility] [address] GARDNER [address] [place] [address] PCP - General Family Medicine 09/08/22 documented as of this encounter
--- OUTSIDE RECORDS SUMMARY | 2024-04-05 02:12 | XMS_ITS | Encounter Summary ---
Author Organization [facility] Healthcare Address [address] [place] [address] Care Team Providers Care Production Operations Inspector Name Role Phone Chris Bean MD Primary Care Provider [phone] Reason for Visit * Reason Onset Date Comments overdue results 05/16/2023 Encounter Details Date Type Department Care Team (Late st Contact Info) Description 05/16/2023 Telephone [facility] Family Medicine at [address] [phone] Chris Bean MD [address] [place] [id number] overdue results Social History Tobacco Use Types Packs/Day Years [...] encounter Miscellaneous Notes * Telephone Encounter - Hair White MA - 05/16/2023 4:53 PM CST Letter was sent through [employer] re: overdue blood work at [facility] NET C DEVELOPER documented in this encounter Plan of Treatment Not on file documented as of this encounter Visit Diagnoses Not on filedocumented in this encounter Care Teams Production Operations Inspector Relationship Specialty Start Date End Date Chris Bean MD [address] [facility] [address] [place] [address] [place] [id number] PCP - General Family Medicine 09/08/22 documented as of this encounter
--- OUTSIDE RECORDS SUMMARY | 2024-04-05 02:12 | XMS_ITS | Encounter Summary ---
Author Organization [facility] Healthcare Address [address] [place] [address] Care Team Providers Care Nuclear Equipment Research Engineer Name Role Phone Chris Bean MD Primary Care Provider [phone] Reason for Visit * Reason Onset Date Comments Medication Request 06/06/2023 Encounter Details Date Type Department Care Team (Late st Contact Info) Description 06/06/2023 Nurse Triage [facility] Family Medicine at [address] [phone] Malinda Rolle, RUTHY Social History Tobacco Use Types Packs/Day Years [...] for muscle spasms 90 tablet 3 06/06/2023 09/20/2023 documented in this encounter Miscellaneous Notes * Telephone Encounter - Kyara Nj MA - 06/06/2023 1:36 PM CST sent PHORE OPERATOR * Telephone Encounter - Chris Bean MD - 06/06/2023 1:04 PM CST Flexeril 10mg TID x30d #90 can be sent. PHORE OPERATOR * Telephone Encounter - Malinda Rolle RN - 06/06/2023 10:52 AM CST Patient reports chronic back pain and history of back surgery. Reports that she sees pain management routinely and was on Hydrocodone for pain. Reports that she recently went to rehab and is no longer wanting to take narcotic pain medications. She was seen by pain management on 06/04 and reports being told that they would prescribe her Flexeril instead of Hydrocodone for pain.Reports that she has taken Flexeril in the past for pain. Reports that medication was not called inand when she called pain management today to follow up reports being told that she would need to gothrough PCP to get Flexeril prescription. Reports that she is scheduled in mid June with pain management to get injections for her back pain. Patient was scheduled in PCP office tomorrow morning, but cancelled appointment this morning. Patient is requesting order for Flexeril be called in to pharmacy. Preferred pharmacy and allergies verified with patient. Advised patient that message will be routed to PCP to determine if able to fulfill request. Patient stated understanding. Routed to Chris Bean MD office. Patient cancelled OV tomorrow. Requesting order for Flexeril; patient says that pain management told her to follow up with PCP for order. Reason for Disposition Prescription request for new medicine (not a refill) Protocols used: Medication Refill and Renewal [id number] PHORE OPERATOR * Telephone Encounter - Gaby Robles RN - 06/06/2023 10:29 AM CST Regarding: back pain moderate-severe ----- Message from Viky Rock sent at 06/06/2023 10:05 AM SEMAPHORE OPERATOR ----- Symptom Based Call Chief Complaint(s): back pain moderate-severe Duration: since 2014 What type of symptom(s) is the patient experiencing? Non-Emergent. Is this a new or reoccurring symptom(s)? Reoccurring What have you tried to help your symptom(s)? Had 2 back surgeries, 4 injections yearly, hydrocodone, ibuprofen Why was appointment not scheduled? Appointment availability did not meet the patient's need. Additional Comments: Patient canceled tomorrows appointment as she had pain management appointment,and was hoping to get injections, trying to look for non opioid alternatives. Pain management was not able to help Does message need to be routed? Yes-Action Needed PHORE OPERATOR documented in this encounter Plan of Treatment Not on file documented as of this encounter Visit Diagnoses Not on filedocumented in this encounter Care Teams Nuclear Equipment Research Engineer Relationship Specialty Start Date End Date Chris Bean MD [address] [facility] [address] [place] [address] [place] [id number] PCP - General Family Medicine 09/08/22 documented as of this encounter
--- OUTSIDE RECORDS SUMMARY | 2024-04-05 02:12 | XMS_ITS | Encounter Summary ---
Author Organization [facility] Healthcare Address [address] [place] [address] Care Team Providers Care Quantitative Associate Name Role Phone Chris Bean MD Primary Care Provider [phone] Encounter Details Date Type Department Care Team (Late st Contact Info) Description 06/13/2023 [facility] Outreach [facility] Warm Hand Off Program [address] [place], [place] [phone] Gaby Hugo Social History Tobacco Use Types Packs/Day Years [...] on file documented as of this encounter Progress Notes * Gaby Hugo - 06/13/2023 2:49 PM CST Attempted to contact Pt in f/u to previous Warm Handoff enrollment at [facility]. # Disconnected at this time & unable to LM. Per chart review, Pt has been staying in contact with outpatient providers and has communicated her desire for continuous recovery. Please encourage Pt to f/u w/WHO if in need of [facility] resources/care coordination in the future. DENCE SUPERVISOR documented in this encounter Plan of Treatment Not on file documented as of this encounter Visit Diagnoses Not on filedocumented in this encounter Care Teams Quantitative Associate Relationship Specialty Start Date End Date Crhis Bean MD [address] [facility] [address] [place] [address] [place] [id number] PCP - General Family Medicine 09/08/22 documented as of this encounter
--- OUTSIDE RECORDS SUMMARY | 2024-04-05 02:13 | XMS_ITS | Encounter Summary ---
Author Organization [facility] Healthcare Address [address] [place] [address] Care Team Providers Care Land Acquisition Specialist Name Role Phone Chris Bean MD Primary Care Provider [phone] Encounter Details Date Type Department Care Team (Late st Contact Info) Description 03/27/2023 Telephone [facility] Warm Hand Off Program [address] [place], [place] [phone] Alfreda Josue LCSW Social History Tobacco Use Types Packs/Day Years [...] as of this encounter Progress Notes * Alfreda Josue LCSW - 03/27/2023 8:13 AM CST SW f/u w/ Pt per [facility] referral. Pt noted she is still admitted d/t bp issues. Pt acknowledged feeling better, but sounded tired, maybe a bit slurry. SW explained her roll and offered 1:1 counseling for Pt upon dc. Pt noted interest and agreed for the tag writer to text her contact information for Pt to call once dc'd. EMILIA texted name and cell phone number to Pt. EMILIA will follow and offer intervention and support as needed. PSKIN PICKLER documented in this encounter Plan of Treatment Not on file documented as of this encounter Visit Diagnoses Not on filedocumented in this encounter Care Teams Land Acquisition Specialist Relationship Specialty Start Date End Date Chris Bean MD [address] [facility] [address] [place] [address] [place] [id number] PCP - General Family Medicine 09/08/22 documented as of this encounter
--- OUTSIDE RECORDS SUMMARY | 2024-04-05 02:13 | XMS_ITS | Encounter Summary ---
Author Organization [facility] Healthcare Address [address] [place] [address] Care Team Providers Care [employer] Name Role Phone Chris Bean MD Primary Care Provider [phone] Reason for Visit * Auth/Cert (Routine) Specialty Diagnoses / Procedures Referred By Contac t Referred To Contact Diagnoses Opioid dependence, uncomplicated Alcohol withdrawal syndrome without complication (HCC) F11.20 Procedures na Referral ID Status Reason Start Date Expiration Date Visits Re quested Visits Authorized [id number] 1 1 Encounter Details Date Type Department Care Team (Latest Contact Info) Description 03/23/2023 1:06 PM SALES AND MERCHANDISING REPRESENTATIVE - 03/27/2023 12:58 PM [facility] Hospital Encounter [facility] Medical Care [address] [place] [address] Judie Jackson MD [address] [place] [address] [place] [address] Dariana Noe MD [address] [place] [address] [place] [address] Ellyn Barber MD [address] [place] [address] [place] [address] Esperanza Conway MD [address] [place] [address] [place] [address] Abelardo Bean MD [address] [facility] [place] [address] Xochitl Mckoy MD [address] [facility] [place] [address] Alcohol abuse (Primary Dx) Discharge Disposition: Discharge to home or self [...] Sign Reading Time Taken Comments Blood Pressure 94/71 03/27/2023 11:14 AM SALES AND MERCHANDISING REPRESENTATIVE Pulse 118 03/27/2023 11:14 AM SALES AND MERCHANDISING REPRESENTATIVE Temperature 36 ??C (96.8 ??F) 03/27/2023 11:14 AM SALES AND MERCHANDISING REPRESENTATIVE Respiratory Rate 16 03/27/2023 11:14 AM SALES AND MERCHANDISING REPRESENTATIVE Oxygen Saturation 100% 03/27/2023 11:14 AM SALES AND MERCHANDISING REPRESENTATIVE Inhaled Oxygen Concentration - - Weight 60 kg (132 lb 3.2 oz) 03/23/2023 2:06 PM SALES AND MERCHANDISING REPRESENTATIVE Height 154.9 cm (5' 1 ) 03/23/2023 2:06 PM SALES AND MERCHANDISING REPRESENTATIVE Body Mass Index 24.98 03/23/2023 2:06 PM SALES AND MERCHANDISING REPRESENTATIVE documented in this encounter Discharge Summaries * Xochitl Mckoy MD - 03/27/2023 10:21 AM CST Inpatient Discharge Summary BRIEF OVERVIEW Admitting Provider: Dariana Noe MD Discharge Provider: Xochitl Mckoy MD Primary Care Physician at Discharge: Chris Bean MD [phone] Admission Date: 03/23/2023 Discharge Date: 03/27/2023 Admission Location: [facility] Problems/Diagnoses: Principal Problem: Alcohol abuse Active Problems: Alcohol withdrawal syndrome without complication (HCC) Narcotic dependence (HCC) Chronic low back pain Resolved Problems: No resolved hospital problems. DETAILS OF HOSPITAL STAY Presenting Problem/History of Present Illness: detox Hospital Course: Patient is a 48 yo female with history of chronic lower back pain, narcotic dependence, and alcoholdependence. She presented requesting detox. She usually gets 120 tabs of norco monthly and wants tocompletely stop using it. She sees a pain physician and has discussed this with her but she was told to see her back surgeon regarding this as surgery was done earlier this year. Due to her pain, shehas been drinking more alcohol and consumes 1 pint of liquor daily, and has been doing so for about3 years. She denies having abdominal pain, nausea, vomiting, or cramping. She has had unsuccessful attempts to quit alcohol and norco use. Patient was admitted for detox. She was started on CIWA protocol. Daily folic acid, thiamine, and multivitamin. For her narcotic dependence, she completed librium taper and prn meds as ordered for withdrawal symptoms. Last opioid use was 03/23 at 0430 am. She was started on suboxone/subutex, 03/24 night, however patient was notably drowsy on 03/25 morning. She was started on lower dose 2 mg PO TID, which was started 03/25. PT/OT ordered to eval as pt reported unsteady gait. For her chronic lower back pain, she was started on diclofenac gel TID, prn ibuprofen and robaxin. Patient was followed by EMILIA and danika hand nydia. Patent plans to engage with [facility] for OP services. She was instructed that she needs to call to establish care. She was also instructedto follow up with per pain specialist. She was discharge with subutex, 2mg SL Q8H for 5 days with further renewals to be prescribed as an outpatient PCP Active Issues Requiring Follow-up: Follow up with pain management physician Test Results Pending at Discharge: Operative Procedures Performed: Discharge Details Physical Exam at Discharge: Discharge Condition: stable Pulse: 113 Resp: 16 BP: 103/60 Temp: 36.8 ??C (98.3 ??F) Weight: 60 kg (132 lb 3.2 oz) Pertinent Exam Findings at Discharge: General: NAD, conversant Lungs CTA Heart: [id number], no significant murmur or gallop Abd: +BS, Non Tender, Non distended, No gross hepatomegaly Lower Ext: No gross edema, pedal artery pulses are palpable bilaterally Neuro: No new deficits appreciated Musculoskeletal: no gross joint erythema, edema, tenderness Skin: No new change Discharge Disposition: Discharge to home or self care Code Status at Discharge: FULL Discharge Instructions: Activity Instructions Discharge activity: Resume normal activity Diet Instructions Adult Discharge Diet Diet Type: Return to previous diet Discharge Medications: Current Medications TAKE these medications albuterol HFA 90 mcg/actuation inhaler Inhale 2 puffs every 4 (four) hours as needed for wheezing or shortness of breath Commonly known as: ProAir HFA amitriptyline 25 mg tablet TAKE 1 AND 1/2 TABLETS BY MOUTH EVERY NIGHT AT BEDTIME Commonly known as: ELAVIL buprenorphine 2 mg tablet, sublingual Place 1 tablet (2 mg total) under the tongue every 8 (eight) hours for 5 days Commonly known as: SUBUTEX diclofenac sodium 1 % gel Apply 4 g topically 3 (three) times a day Commonly known as: VOLTAREN metoprolol XL 25 mg extended release tablet Take 1 tablet (25 mg total) by mouth daily Commonly known as: TOPROL-XL nystatin 100,000 unit/mL suspension Take 5 mL (500,000 Units total) by mouth 4 (four) times a day Swish in mouth and spit out. spironolactone 25 mg tablet Take 1 tablet (25 mg total) by mouth daily Commonly known as: ALDACTONE topiramate 100 mg tablet Take 1 tablet (100 mg total) by mouth 2 (two) times a day Commonly known as: TOPAMAX Outpatient Follow-Up: Future Appointments Date Time Provider Department Center 03/28/2023 10:30 AM Chris Bean MD [facility] My total encounter time on 03/27/2023 was 38 minutes which was spent in the activities documented in the note. This includes time spent prior to the visit and after the visit in direct care of the patient. This time does not include time spent in any separately reportable services. S AND MERCHANDISING REPRESENTATIVE S AND MERCHANDISING REPRESENTATIVE documented in this encounter Discharge Instructions * Discharge Instructions* Brenna Madrigal RN - 03/27/2023 11:00 AM SALES AND MERCHANDISING REPRESENTATIVE Follow up with Luis as discussed with warm handoff If you have any questions or concerns after discharge, please call [facility] at [phone]. S AND MERCHANDISING REPRESENTATIVE documented in this encounter Medications at Time of Discharge nystatin 100,000 unit/mL suspension Take 5 mL (500,000 Units total) by mouth 4 (four) times a day Swish in mouth and spit out. 280 mL 03/02/2023 4 albuterol HFA (ProAir HFA) 90 mcg/actuation inhaler Inhale 2 puffs every 4 (four) hours as needed for wheezing or shortness of breath 3 each 4 06/01/2022 4 amitriptyline (ELAVIL) 25 mg tabletIndications :Primary insomnia TAKE 1 AND 1/2 TABLETS BY MOUTH EVERY NIGHT AT BEDTIME 45 tablet 3 03/13/2023 4 buprenorphine-nal oxone (SUBOXONE) 8-2 mg per SL tablet Place 1 tablet under the tongue daily for 5 days 5 tablet 03/27/2023 4 diclofenac sodium (VOLTAREN) 1 % gel Apply 4 g topically 3 (three) times a day 30 g 1 03/27/2023 4 metoprolol XL (TOPROL-XL) 25 mg extended release tabletIndications :Benign essential HTN Take 1 tablet (25 mg total) by mouth daily 90 tablet 1 12/22/2022 4 spironolactone (ALDACTONE) 25 mg tablet Take 1 tablet (25 mg total) by mouth daily 4 topiramate (TOPAMAX) 100 mg tabletIndications :Migraine without aura and without status migrainosus, not intractable Take 1 tablet (100 mg total) by mouth 2 (two) times a day 180 tablet 1 09/26/2022 4 documented as of this encounter Ordered Prescriptions Prescription Sig Dispense Quantity Refills Last Filled Start Date End Date buprenorphine-nalo xone (SUBOXONE) 8-2 mg per SL tablet Place 1 tablet under the tongue daily for 5 days 5 tablet 03/27/2023 4 diclofenac sodium (VOLTAREN) 1 % gel Apply 4 g topically 3 (three) times a day 30 g 1 03/27/2023 4 buprenorphine (SUBUTEX) 2 mg tablet, sublingual Place 1 tablet (2 mg total) under the tongue every 8 (eight) hours for 5 days 15 tablet 03/27/2023 3 documented in this encounter Discharge Disposition Disposition Code Departure Means Destination Comment s Discharge to home or self care documented in this encounter Progress Notes * An Velasco, OT - 03/26/2023 4:41 PM CST Occupational Therapy Initial Evaluation Past Medical History: Diagnosis Date Allergy-induced asthma Anxiety Current smoker Diastolic heart failure, NYHA class 1 (CMS/HCC) (HCC) Hypertension Intervertebral disc disorder with radiculopathy of lumbar region Migraines 03/26/23 1502 General Chart Reviewed Yes Session Type Evaluation OT Received On 03/26/23 Safe Environment Arm band checked;Patient found standing in room or hallway Subjective Agreeable to Therapy Family/Caregiver Present No Occupational Therapy-Patient Goal To return home and continue to work with Warm Handoff Precautions Precautions Fall risk Home Living Type of Home House Home Layout Two level (Split level) # of Steps-Railed 10 (10 steps to main level with bed/bathroom, 10 steps down to basement) Home Access Stairs to enter without rails Entrance Stairs-Rails None Entrance Stairs-Number of Steps 1 Bathroom Shower/Tub Tub/shower unit Bathroom Toilet Standard Home Mobility Equipment-Available None Home Mobility Equipment-Currently Using None Prior Function Level of Jenkins Independent with ADLs;Independent functional transfers;Independent with ambulation Lives With Spouse Receives Help From Family Driving Yes Fall within the last 6 months Yes Fall within the last 6 months comment Pt. reports at least 5-6 falls, legs giving out or tripping on something, no injuries reported Prior Function Comments Pt. 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 fully dressed upon OT arrival, declines ADLs this session) Pain Assessment Pain Assessment No/denies pain (Pt. denies pain initially, then talks about back pain throughout session, does not give a number) Clinical Progression Not changed Activity Tolerance Activity Tolerance Comments Rest breaks with activity Cognition Cognition Comments Pt. tearful at times about current situation Overall Cognitive Status WFL Attention Span Attends with cues to redirect Orientation Oriented X4 (person, place, time, situation) Compliance/Behavior Easy to engage Static Sitting Balance Static Sitting-Balance Support No upper extremity supported;Feet supported Static Sitting-Sitting Surface Bed Static Sitting-Level of Assistance Independent Static Standing Balance Static Standing-Balance Support No upper extremity supported Static Standing-Standing Surface Floor Static Standing-Level of Assistance Contact guard;Close supervision Static Standing-Comment/# of Minutes Pt. unsteady Bed Mobility Bed Mobility (Pt. sitting on EOB, does not return to supine during session) Transfer 1 Transfer From 1 Bed;Sit Transfer Type 1 To and from Transfer to 1 Stand Technique 1 Sit to stand;Stand to sit;Ambulation Transfer Device 1 No device Transfer Level of Assistance 1 Standby Assist Trials/Comments 1 SBA for safety, pt. unsteady, pt. ambulating in room without device, unsteady, does have 1 LOB posterior while standing but able to correct without assistance, when asked if she needed to sit down, pt. declined and continued to ambulate around room for a few more minutes before sitting on EOB RUE Assessment RUE Assessment WFL RUE Comments Pt. reports occasional numbness/tingling in her hands, overall WFL LUE Assessment LUE Assessment WFL LUE Comments Pt. reports occasional numbness/tingling in her hands, overall WF Safe Environment End of Therapy Session Safe Environment End of Therapy Session Patient left sitting at edge of bed;RN notified;Call light within reach;Overbed table within reach Assessment Prognosis Excellent Problem List Decreased balance;Decreased functional mobility;Decreased safe judgment during ADL;Decreased ADL independence Plan Plan Plan of care initiated;If this is the last note, consider this the discharge summary Recommendation/Plan OT Recommendation Home with family;Home with 24 hour supervision (24hr supervision to increase safety with ADLs and functional mobility) Patient at high risk for Falls OT Recommendation/Plan Comments Recommend follow up visit to discuss energy conservation and ADL safety in home environment OT Frequency during current admission Follow-up visit only Treatment/Interventions during current admission ADL/IADL retraining;Balance Training;Functional activity;Functional mobility training;Therapeutic activity;Therapeutic exercise OT Evaluation Complete Yes Multi-Disciplinary Problems (from Occupational Therapy) Active Problems Problem: OT Misc Start Date: 03/26/23 Goal Start Date Expected End Date End Date OT STG - Misc 1 03/26/23 04/02/23 -- Goal Details: Pt. Will identify 3 strategies to use at home to increase safety with ADLs and functional mobility S AND MERCHANDISING REPRESENTATIVE * Abelardo Bean MD - 03/26/2023 7:46 AM CST General Medicine Daily Progress SUBJECTIVE Chief complaint of opioid abuse Interval History: Pt more alert and oriented this morning after discontinuation of subutex. She is wishing to trial with lower dose, which I have re-ordered this morning. Reports of pt having a fall with unsteady gaitovernight. OBJECTIVE Vitals: 24hr Min/Max: Temp Min: 35.9 ??C (96.7 ??F) Max: 36.2 ??C (97.2 ??F) Pulse Min: 74 Max: 92 BP Min: 94/59 Max: 124/75 Resp Min: 15 Max: 18 SpO2 Min: 95 % Max: 100 % Most Recent : Vitals: 03/26/23 0744 BP: 94/59 Pulse: 86 Resp: 15 Temp: (!) 35.9 ??C (96.7 ??F) SpO2: 99% I/O last 2 completed shifts: In: 350 [P.O.:350] Out: - I/O this shift: In: 240 [P.O.:240] Out: - Physical Exam: Eyes: EOMI, SHANE, sclare non icteric Neck: supple, no nuchal ridigity, no gross carotid bruits appreciated Pharynx: No gross oral lesion, tongue midline, mucosa moist Lungs CTA Heart: [id number], no significant murmur or gallop Abd: +BS, Non Tender, Non distended, No gross hepatomegaly Lower Ext: No gross edema, pedal artery pulses are palpable bilaterally Neuro: No new deficits appreciated Musculoskeletal: no gross joint erythema, edema, tenderness Skin: No new change Lab/Current Medication Review: Recent Results (from the past 24 hour(s)) Hepatic function panel Collection Time: 03/26/23 4:48 AM Result Value Ref Range Bilirubin, total <0.2 0.1 - 1.2 mg/dL Bilirubin, direct <0.2 0.1 - 0.3 mg/dL Protein, pl 5.2 (L) 6.5 - 8.5 g/dL Albumin 3.3 (L) 3.5 - 5.0 g/dL Alk phos 79 40 - 130 Units/L ALT 7 7 - 45 Units/L AST 18 10 - 45 Units/L No results found. Current Facility-Administered Medications Medication Dose Route Frequency Provider Last Rate Last Admin acetaminophen (TYLENOL) tablet 500 mg 500 mg oral Q6H PRN Ellyn Barber MD 500 mg at 03/24/23 1628 albuterol 2.5 mg /3 mL (0.083 %) nebulizer solution 2.5 mg 2.5 mg nebulization Q4H PRN (RT) Ellyn Barber MD aluminum-magnesium hydroxide-simethicone (MAALOX) 40-40-4 mg/mL oral suspension 30 mL 30 mL oral Q6H PRN Dariana Noe MD amitriptyline (ELAVIL) tablet 37.5 mg 37.5 mg oral Nightly Ellyn Barber MD 37.5 mg at 03/24/232052 bisacodyL (DULCOLAX) suppository 10 mg 10 mg rectal Daily PRN Dariana Noe MD buprenorphine (SUBUTEX) sublingual tablet 2 mg 2 mg sublingual Q8H [facility] Abelardo Bean MD diclofenac sodium (VOLTAREN) 1 % gel 4 g 4 g topical TID Ellyn Barber MD 4 g at 03/26/23 0940 dicyclomine (BENTYL) capsule 20 mg 20 mg oral Q6H PRN Dariana Noe MD enoxaparin (LOVENOX) syringe 40 mg 40 mg subcutaneous Daily-2099 Esperanza Conway MD folic acid (FOLVITE) tablet 1 mg 1 mg oral Daily Dariana Noe MD 1 mg at 03/26/23 0934 hydrOXYzine (VISTARIL) capsule 50 mg 50 mg oral Q6H PRN Dariana Noe MD 50 mg at 03/25/231950 ibuprofen (ADVIL,MOTRIN) tablet 600 mg 600 mg oral Q8H PRN Dariana Noe MD 600 mg at 03/25/231946 loperamide (IMODIUM) capsule 2 mg 2 mg oral Q8H PRN Dariana Noe MD loperamide (IMODIUM) capsule 4 mg 4 mg oral Once PRN Dariana Noe MD LORazepam (ATIVAN) injection 1 mg 1 mg intravenous Q4H PRN Dariana Noe MD LORazepam (ATIVAN) tablet 1 mg 1 mg oral Q4H PRN Ellyn Barber MD 1 mg at 03/25/23 0323 Or LORazepam (ATIVAN) tablet 1 mg 1 mg oral Q2H PRN Ellyn Barber MD Or LORazepam (ATIVAN) injection 1 mg 1 mg intravenous Q1H PRN Ellyn Barber MD Or LORazepam (ATIVAN) injection 1 mg 1 mg intramuscular Q1H PRN Ellyn Barber MD Or LORazepam (ATIVAN) injection 2 mg 2 mg intravenous Q1H PRN Ellyn Barber MD Or LORazepam (ATIVAN) injection 2 mg 2 mg intramuscular Q1H PRN Ellyn Barber MD LORazepam (ATIVAN) injection 2 mg 2 mg intravenous Once PRN Dariana Noe MD methocarbamoL (ROBAXIN) tablet 750 mg 750 mg oral Q6H PRN Dariana Noe MD 750 mg at 03/25/23 1947 metoprolol XL (TOPROL-XL) extended release tablet 25 mg 25 mg oral Daily Ellyn Barber MD 25 mg at 03/25/23 0930 multivit bsontfaw-jdal-HJ-calcium (THERA-M) tablet 1 tablet 1 tablet oral Daily Dariana Noe MD 1 tablet at 03/26/23 0934 nicotine (NICODERM CQ) 14 mg patch 24 hour 1 patch 1 patch transdermal Daily Ellyn Barber MD 1 patch at 03/26/23 0939 ondansetron ODT (ZOFRAN-ODT) disintegrating tablet 4 mg 4 mg oral Q6H PRN Dariana Noe MD Or ondansetron (ZOFRAN) injection 4 mg 4 mg intravenous Q6H PRN Dariana Noe MD senna (SENOKOT) tablet 2 tablet 17.2 mg oral Nightly PRN Dariana Noe MD spironolactone (ALDACTONE) tablet 25 mg 25 mg oral Daily Ellyn Barber MD 25 mg at 03/25/23 0930 thiamine (VITAMIN B1) tablet 100 mg 100 mg oral Daily Dariana Noe MD 100 mg at 03/26/23 0934 topiramate (TOPAMAX) tablet 200 mg 200 mg oral Daily Ellyn Barber MD 200 mg at 03/26/23 0934 A/P: Alcohol dependence/withdrawal Monitor per [facility] protocol. Daily folic acid, thiamine, and multivitamin. Finished librium taper. Opiate dependence/withdrawal On librium taper and prn meds as ordered for withdrawal symptoms. Last opioid use was 12/8 at 0430 am. Pt had been wishing to start suboxone/subutex, which was initiated 03/24 night, however pt was notably drowsy on 03/25 morning. She wished to trial a lower dose which I have ordered this morning. PT/OT ordered to eval as pt reported unsteady gait. Chronic lower back pain Diclofenac gel TID, prn ibuprofen and robaxin. Add scheduled tylenol Tobacco use Nicotine patch HTN Blood pressure is controlled Resume toprol xl and aldactone Leukopenia Anemia Mild/borderline, no evident source of bleeding, will continue to monitor MDM- Low complexity Principal Problem: Alcohol abuse Active Problems: Alcohol withdrawal syndrome without complication (HCC) Narcotic dependence (HCC) Chronic low back pain Resolved Problems: No resolved hospital problems. Voice recognition software [employer] was used dictate and transcribe this document. Supervisor [employer] variances may occur. Despite proofreading, typographical errors may occur. Abelardo Bean MD 03/26/2023 11:03 AM S AND MERCHANDISING REPRESENTATIVE * Abelardo Bean MD - 03/25/2023 7:48 AM CST General Medicine Daily Progress SUBJECTIVE Chief complaint of opioid abuse Interval History: Pt notably drowsy this morning, had received subutex earlier in the night. Pt denies any acute issues at the moment, but states she did have anxiety last night. OBJECTIVE Vitals: 24hr Min/Max: Temp Min: 36.1 ??C (96.9 ??F) Max: 36.2 ??C (97.2 ??F) Pulse Min: 75 Max: 98 BP Min: 108/75 Max: 120/91 Resp Min: 15 Max: 16 SpO2 Min: 95 % Max: 100 % Most Recent : Vitals: 03/25/23 0749 BP: 108/75 Pulse: 98 Resp: 16 Temp: 36.1 ??C (96.9 ??F) SpO2: 95% I/O last 2 completed shifts: In: 1300 [P.O.:1300] Out: - No intake/output data recorded. Physical Exam: Eyes: EOMI, SHANE, sclare non icteric Neck: supple, no nuchal ridigity, no gross carotid bruits appreciated Pharynx: No gross oral lesion, tongue midline, mucosa moist Lungs CTA Heart: [id number], no significant murmur or gallop Abd: +BS, Non Tender, Non distended, No gross hepatomegaly Lower Ext: No gross edema, pedal artery pulses are palpable bilaterally Neuro: No new deficits appreciated Musculoskeletal: no gross joint erythema, edema, tenderness Skin: No new change Lab/Current Medication Review: Recent Results (from the past 24 hour(s)) Hepatic function panel Collection Time: 03/25/23 4:52 AM Result Value Ref Range Bilirubin, total <0.2 0.1 - 1.2 mg/dL Bilirubin, direct <0.2 0.1 - 0.3 mg/dL Protein, pl 6.0 (L) 6.5 - 8.5 g/dL Albumin 3.5 3.5 - 5.0 g/dL Alk phos 93 40 - 130 Units/L ALT 9 7 - 45 Units/L AST 27 10 - 45 Units/L No results found. Current Facility-Administered Medications Medication Dose Route Frequency Provider Last Rate Last Admin acetaminophen (TYLENOL) tablet 500 mg 500 mg oral Q6H PRN Ellyn Barber MD 500 mg at 03/24/23 1628 albuterol 2.5 mg /3 mL (0.083 %) nebulizer solution 2.5 mg 2.5 mg nebulization Q4H PRN (RT) Ellyn Barber MD aluminum-magnesium hydroxide-simethicone (MAALOX) 40-40-4 mg/mL oral suspension 30 mL 30 mL oral Q6H PRN Dariana Noe MD amitriptyline (ELAVIL) tablet 37.5 mg 37.5 mg oral Nightly Ellyn Barber MD 37.5 mg at 03/24/232052 bisacodyL (DULCOLAX) suppository 10 mg 10 mg rectal Daily PRN Dariana Noe MD chlordiazePOXIDE (LIBRIUM) capsule 50 mg 50 mg oral Q8H Dariana Noe MD 50 mg at 03/25/23 0518 Followed by chlordiazePOXIDE (LIBRIUM) capsule 25 mg 25 mg oral Q8H Dariana Noe MD diclofenac sodium (VOLTAREN) 1 % gel 4 g 4 g topical TID Ellyn Barber MD 4 g at 03/24/232056 dicyclomine (BENTYL) capsule 20 mg 20 mg oral Q6H PRN Dariana Noe MD enoxaparin (LOVENOX) syringe 40 mg 40 mg subcutaneous Daily-2099 Esperanza Conway MD folic acid (FOLVITE) tablet 1 mg 1 mg oral Daily Dariana Noe MD 1 mg at 03/25/23 0930 hydrOXYzine (VISTARIL) capsule 50 mg 50 mg oral Q6H PRN Dariana Noe MD 50 mg at 03/25/23 0323 ibuprofen (ADVIL,MOTRIN) tablet 600 mg 600 mg oral Q8H PRN Dariana Noe MD 600 mg at 03/24/23 1628 loperamide (IMODIUM) capsule 2 mg 2 mg oral Q8H PRN Dariana Noe MD loperamide (IMODIUM) capsule 4 mg 4 mg oral Once PRN Dariana Noe MD LORazepam (ATIVAN) injection 1 mg 1 mg intravenous Q4H PRN Dariana Noe MD LORazepam (ATIVAN) tablet 1 mg 1 mg oral Q4H PRN Ellyn Barber MD 1 mg at 03/25/23 0323 Or LORazepam (ATIVAN) tablet 1 mg 1 mg oral Q2H PRN Ellyn Barber MD Or LORazepam (ATIVAN) injection 1 mg 1 mg intravenous Q1H PRN Ellyn Barber MD Or LORazepam (ATIVAN) injection 1 mg 1 mg intramuscular Q1H PRN Ellyn Barber MD Or LORazepam (ATIVAN) injection 2 mg 2 mg intravenous Q1H PRN Ellyn Barber MD Or LORazepam (ATIVAN) injection 2 mg 2 mg intramuscular Q1H PRN Ellyn Barber MD LORazepam (ATIVAN) injection 2 mg 2 mg intravenous Once PRN Dariana Noe MD methocarbamoL (ROBAXIN) tablet 750 mg 750 mg oral Q6H PRN Dariana Noe MD 750 mg at 03/24/232052 metoprolol XL (TOPROL-XL) extended release tablet 25 mg 25 mg oral Daily Ellyn Barber MD 25 mg at 03/25/23929 multivit fjffsvol-ligd-CS-calcium (THERA-M) tablet 1 tablet 1 tablet oral Daily Dariana Noe MD 1 tablet at 03/25/23929 nicotine (NICODERM CQ) 14 mg patch 24 hour 1 patch 1 patch transdermal Daily Ellyn Barber MD 1 patch at 03/24/23 1007 ondansetron ODT (ZOFRAN-ODT) disintegrating tablet 4 mg 4 mg oral Q6H PRN Dariana Noe MD Or ondansetron (ZOFRAN) injection 4 mg 4 mg intravenous Q6H PRN Dariana Noe MD senna (SENOKOT) tablet 2 tablet 17.2 mg oral Nightly PRN Dariana Noe MD spironolactone (ALDACTONE) tablet 25 mg 25 mg oral Daily Ellyn Barber MD 25 mg at 03/25/23929 thiamine (VITAMIN B1) tablet 100 mg 100 mg oral Daily Dariana Noe MD 100 mg at 03/25/23930 topiramate (TOPAMAX) tablet 200 mg 200 mg oral Daily Ellyn Barber MD 200 mg at 03/25/23930 A/P: Alcohol dependence/withdrawal Monitor per [facility] protocol. Daily folic acid, thiamine, and multivitamin. Opiate dependence/withdrawal On librium taper and prn meds as ordered for withdrawal symptoms. Last opioid use was 03/23 at 0430 am. Pt had been wishing to start suboxone/subutex, which was initiated overnight, however pt is notably drowsy this morning. Will stop for now, and continue librium taper as ordered and monitor. Chronic lower back pain Diclofenac gel TID, prn ibuprofen and robaxin. Add scheduled tylenol Tobacco use Nicotine patch HTN Blood pressure is controlled Resume toprol xl and aldactone Leukopenia Anemia Mild/borderline, no evident source of bleeding, will continue to monitor MDM- Low complexity Principal Problem: Alcohol abuse Active Problems: Alcohol withdrawal syndrome without complication (HCC) Narcotic dependence (HCC) Chronic low back pain Resolved Problems: No resolved hospital problems. Voice recognition software [employer] Direct was used dictate and transcribe this document. Supervisor [place] [place] variances may occur. Despite proofreading, typographical errors may occur. Abelardo Bean MD 03/25/2023 11:20 AM S AND MERCHANDISING REPRESENTATIVE * Esperanza Conway MD - 03/24/2023 5:50 PM CST General Medicine Daily Progress SUBJECTIVE Chief complaint of opioid abuse Interval History: No acute events. Pt appears comfortable. Reports chronic low back pain and mild headache. No significant signs of withdrawal present at this time. Last opioid use was yesterday at 0430 am. Pt would like to start suboxone, will plan to start on taper tomorrow morning. Will continue to monitor for withdrawal symptoms. OBJECTIVE Vitals: 24hr Min/Max: Temp Min: 36.1 ??C (96.9 ??F) Max: 36.4 ??C (97.6 ??F) Pulse Min: 67 Max: 100 BP Min: 109/80 Max: 129/91 Resp Min: 15 Max: 18 SpO2 Min: 95 % Max: 100 % Most Recent : Vitals: 03/24/23 1509 BP: 109/80 Pulse: 78 Resp: 16 Temp: 36.2 ??C (97.2 ??F) SpO2: 100% I/O last 2 completed shifts: In: 370 [P.O.:360; I.V.:10] Out: 0 I/O this shift: In: 240 [P.O.:240] Out: - Physical Exam: Eyes: EOMI, SHANE, sclare non icteric Neck: supple, no nuchal ridigity, no gross carotid bruits appreciated Pharynx: No gross oral lesion, tongue midline, mucosa moist Lungs CTA Heart: [id number], no significant murmur or gallop Abd: +BS, Non Tender, Non distended, No gross hepatomegaly Lower Ext: No gross edema, pedal artery pulses are palpable bilaterally Neuro: No new deficits appreciated Musculoskeletal: no gross joint erythema, edema, tenderness Skin: No new change Lab/Current Medication Review: Recent Results (from the past 24 hour(s)) Drugs of Abuse Screen, Urine without Confirmation Collection Time: 03/23/23 6:53 PM Result Value Ref Range Amphetamine, ur Not Detected CutOff 500ng/mL Barbiturates, ur Not Detected CutOff 200ng/mL Benzodiazepines, ur Not Detected CutOff 100ng/mL Cannabinoids, ur Screen Positive, presumptive (A) CutOff 50 ng/mL Cocaine, ur Not Detected CutOff 150ng/mL Fentanyl, Ur Not Detected Cutoff 1 ng/mL Methadone, ur Not Detected CutOff 300ng/mL Opiates, ur Screen Positive, presumptive (A) CutOff 300ng/mL Oxycodone, ur Not Detected CutOff 100ng/mL Phencyclidine, ur Not Detected CutOff 25 ng/mL Urine Creatinine 120 mg/dL Basic metabolic panel Collection Time: 03/24/23 4:10 AM Result Value Ref Range Sodium 136 135 - 145 mmol/L Potassium, pl 3.4 3.3 - 4.9 mmol/L Chloride 103 97 - 110 mmol/L CO2 22 22 - 32 mmol/L Anion gap 11 2 - 15 mmol/L BUN 11 6 - 25 mg/dL Creatinine 0.63 0.60 - 1.10 mg/dL Glucose 94 70 - 199 mg/dL Calcium 8.5 8.5 - 10.3 mg/dL CBC with auto differential Collection Time: 03/24/23 4:10 AM Result Value Ref Range WBC 3.3 (L) 3.8 - 9.9 K/cumm Hgb 11.7 (L) 11.9 - 15.5 g/dL Hct 35.6 35.6 - 45.5 % Plt 214 150 - 400 K/cumm MPV 9.7 9.1 - 12.3 fL RBC 3.38 (L) 3.90 - 5.20 M/cumm MCV 105.3 (H) 81.3 - 96.4 fL MCH 34.6 (H) 27.1 - 33.3 pg MCHC 32.9 32.3 - 35.7 g/dL RDW CV 13.7 11.1 - 14.9 % RDW SD 53.4 (H) 35.7 - 48.1 fL NRBC abs 0.00 0.00 - 0.01 K/cumm Magnesium Collection Time: 03/24/23 4:10 AM Result Value Ref Range Magnesium 1.8 1.4 - 2.5 mg/dL Phosphorus Collection Time: 03/24/23 4:10 AM Result Value Ref Range Phosphorus, pl 3.4 2.3 - 4.5 mg/dL Hepatic function panel Collection Time: 03/24/23 4:10 AM Result Value Ref Range Bilirubin, total 0.4 0.1 - 1.2 mg/dL Bilirubin, direct <0.2 0.1 - 0.3 mg/dL Protein, pl 5.4 (L) 6.5 - 8.5 g/dL Albumin 3.3 (L) 3.5 - 5.0 g/dL Alk phos 103 40 - 130 Units/L ALT 10 7 - 45 Units/L AST 41 10 - 45 Units/L Differential, auto Collection Time: 03/24/23 4:10 AM Result Value Ref Range Neutrophil abs 1.3 (L) 1.5 - 6.5 K/cumm Imm gran abs 0.0 0.0 - 0.1 K/cumm Lymphocyte abs 1.5 0.8 - 3.3 K/cumm Monocyte abs 0.3 0.2 - 0.8 K/cumm Eosinophil abs 0.1 0.0 - 0.5 K/cumm Basophil abs 0.1 0.0 - 0.1 K/cumm Neutrophil pct 39.0 % Imm gran pct 0.3 % Lymphocyte pct 45.9 % Monocyte pct 9.7 % Eosinophil pct 3.3 % Basophil pct 1.8 % eGFR Collection Time: 03/24/23 4:10 AM Result Value Ref Range eGFR 110 mL/min/1.73 m2 No results found. Current Facility-Administered Medications Medication Dose Route Frequency Provider Last Rate Last Admin acetaminophen (TYLENOL) tablet 500 mg 500 mg oral Q6H PRN Ellyn Barber MD 500 mg at 03/24/23 1628 albuterol 2.5 mg /3 mL (0.083 %) nebulizer solution 2.5 mg 2.5 mg nebulization Q4H PRN (RT) Ellyn Barber MD aluminum-magnesium hydroxide-simethicone (MAALOX) 40-40-4 mg/mL oral suspension 30 mL 30 mL oral Q6H PRN Dariana Noe MD amitriptyline (ELAVIL) tablet 37.5 mg 37.5 mg oral Nightly Ellyn Barber MD 37.5 mg at 03/23/23 2144 bisacodyL (DULCOLAX) suppository 10 mg 10 mg rectal Daily PRN Dariana Noe MD [START ON 03/25/2023] buprenorphine (SUBUTEX) sublingual tablet 4 mg 4 mg sublingual Q8H Esperanza Conway MD Followed by [START ON 03/26/2023] buprenorphine (SUBUTEX) sublingual tablet 2 mg 2 mg sublingual Q8H Esperanza Conway MD Followed by [START ON 03/26/2023] buprenorphine (SUBUTEX) sublingual tablet 2 mg 2 mg sublingual Q12H Esperanza Conway MD chlordiazePOXIDE (LIBRIUM) capsule 50 mg 50 mg oral Q8H Dariana Noe MD 50 mg at 03/24/23 1336 Followed by [START ON 03/25/2023] chlordiazePOXIDE (LIBRIUM) capsule 25 mg 25 mg oral Q8H Dariana Noe MD diclofenac sodium (VOLTAREN) 1 % gel 4 g 4 g topical TID Ellyn Barber MD 4 g at 03/24/23 1628 dicyclomine (BENTYL) capsule 20 mg 20 mg oral Q6H PRN Dariana Noe MD enoxaparin (LOVENOX) syringe 40 mg 40 mg subcutaneous Daily-2100 Esperanza Conway MD folic acid (FOLVITE) tablet 1 mg 1 mg oral Daily Dariana Noe MD 1 mg at 03/24/23 1006 hydrOXYzine (VISTARIL) capsule 50 mg 50 mg oral Q6H PRN Dariana Noe MD 50 mg at 03/24/23 1628 ibuprofen (ADVIL,MOTRIN) tablet 600 mg 600 mg oral Q8H PRN Dariana Noe MD 600 mg at 03/24/23 1628 loperamide (IMODIUM) capsule 2 mg 2 mg oral Q8H PRN Dariana Noe MD loperamide (IMODIUM) capsule 4 mg 4 mg oral Once PRN Dariana Noe MD LORazepam (ATIVAN) injection 1 mg 1 mg intravenous Q4H PRN Dariana Noe MD LORazepam (ATIVAN) tablet 1 mg 1 mg oral Q4H PRN Ellyn Barber MD Or LORazepam (ATIVAN) tablet 1 mg 1 mg oral Q2H PRN Ellyn Barber MD Or LORazepam (ATIVAN) injection 1 mg 1 mg intravenous Q1H PRN Ellyn Barber MD Or LORazepam (ATIVAN) injection 1 mg 1 mg intramuscular Q1H PRN Ellyn Barber MD Or LORazepam (ATIVAN) injection 2 mg 2 mg intravenous Q1H PRN Ellyn Barber MD Or LORazepam (ATIVAN) injection 2 mg 2 mg intramuscular Q1H PRN Ellyn Barber MD LORazepam (ATIVAN) injection 2 mg 2 mg intravenous Once PRN Dariana Noe MD methocarbamoL (ROBAXIN) tablet 750 mg 750 mg oral Q6H PRN Dariana Noe MD 750 mg at 03/24/23 0604 metoprolol XL (TOPROL-XL) extended release tablet 25 mg 25 mg oral Daily Ellyn Barber MD 25 mg at 03/24/23 1006 multivit psrxnrcx-jgdt-YK-calcium (THERA-M) tablet 1 tablet 1 tablet oral Daily Dariana Noe MD 1 tablet at 03/24/23 1006 nicotine (NICODERM CQ) 14 mg patch 24 hour 1 patch 1 patch transdermal Daily Ellyn Barber MD 1 patch at 03/24/23 1007 ondansetron ODT (ZOFRAN-ODT) disintegrating tablet 4 mg 4 mg oral Q6H PRN Dariana Noe MD Or ondansetron (ZOFRAN) injection 4 mg 4 mg intravenous Q6H PRN Dariana Noe MD senna (SENOKOT) tablet 2 tablet 17.2 mg oral Nightly PRN Dariana Noe MD spironolactone (ALDACTONE) tablet 25 mg 25 mg oral Daily Ellyn Barber MD 25 mg at 03/24/23 1007 thiamine (VITAMIN B1) tablet 100 mg 100 mg oral Daily Dariana Noe MD 100 mg at 03/24/23 1006 topiramate (TOPAMAX) tablet 200 mg 200 mg oral Daily Ellyn Barber MD 200 mg at 03/24/23 1006 A/P: Alcohol dependence/withdrawal Monitor per [facility] protocol. Daily folic acid, thiamine, and multivitamin. Opiate dependence/withdrawal Requests to stop norco. On librium taper and prn meds as ordered for withdrawal symptoms. Last opioid use was yesterday at 0430 am. Pt would like to start suboxone, will plan to start on taper tomorrow morning. WHO following. Chronic lower back pain Diclofenac gel TID, prn ibuprofen and robaxin. Add scheduled tylenol Tobacco use Nicotine patch HTN Blood pressure is controlled Resume toprol xl and aldactone Leukopenia Anemia Mild/borderline, no evident source of bleeding, will continue to monitor MDM- moderate Principal Problem: Alcohol abuse Active Problems: Alcohol withdrawal syndrome without complication (HCC) Narcotic dependence (HCC) Chronic low back pain Resolved Problems: No resolved hospital problems. Voice recognition software [employer] Direct was used dictate and transcribe this document. Supervisor [place] variances may occur. Despite proofreading, typographical errors may occur. Esperanza Conway MD 03/24/2023 5:50 PM S AND MERCHANDISING REPRESENTATIVE documented in this encounter H&P Notes * Ellyn Barber MD - 03/23/2023 11:24 PM CST History and Physical CHIEF COMPLAINT detox HPI: 48 yo female with history of chronic lower back pain, narcotic dependence, and alcohol dependence requesting detox. She usually gets 120 tabs of norco monthly and wants to completely stop using it. She sees a pain physician and has discussed this with her but she was told to see her back surgeon regarding this as surgery was done earlier this year. Due to her pain, she has been drinking more alcohol and consumes 1 pint of liquor daily, and has been doing so for about 3 years. She denies having abdominal pain, nausea, vomiting, or cramping. She has had unsuccessful attempts to quit alcohol andnorco use. Past Medical History: Diagnosis Date Allergy-induced asthma Anxiety Current smoker Diastolic heart failure, NYHA class 1 (CMS/HCC) ([facility] [place]) Hypertension Intervertebral disc disorder with radiculopathy of lumbar region Migraines Past Surgical History: Procedure Laterality Date BACK SURGERY 07/2022 SECTION HYSTERECTOMY MICRODISCECTOMY LUMBAR 2014 L5-S1 TONSILLECTOMY/ADENOIDECTOMY Medications Prior to Admission Medication Sig Dispense Refill Last Dose HYDROcodone-acetaminophen (NORCO) 7.5-325 mg per tablet Take 1 tablet by mouth every 6 (six) hours as needed for pain 03/23/2023 albuterol HFA (ProAir HFA) 90 mcg/actuation inhaler Inhale 2 puffs every 4 (four) hours as needed for wheezing or shortness of breath 3 each 4 03/23/2023 amitriptyline (ELAVIL) 25 mg tablet TAKE 1 AND 1/2 TABLETS BY MOUTH EVERY NIGHT AT BEDTIME 45 tablet 3 03/23/2023 metoprolol XL (TOPROL-XL) 25 mg extended release tablet Take 1 tablet (25 mg total) by mouth daily 90 tablet 1 03/23/2023 nystatin 100,000 unit/mL suspension Take 5 mL (500,000 Units total) by mouth 4 (four) times a day Swish in mouth and spit out. 280 mL 0 03/23/2023 spironolactone (ALDACTONE) 25 mg tablet Take 1 tablet (25 mg total) by mouth daily 03/23/2023 topiramate (TOPAMAX) 100 mg tablet Take 1 tablet (100 mg total) by mouth 2 (two) times a day 180 tablet 1 03/23/2023 No Known Allergies Current Facility-Administered Medications Medication Dose Route Frequency Provider Last Rate Last Admin acetaminophen (TYLENOL) tablet 500 mg 500 mg oral Q6H PRN Ellyn Barber MD 500 mg at 03/23/232143 albuterol 2.5 mg /3 mL (0.083 %) nebulizer solution 2.5 mg 2.5 mg nebulization Q4H PRN (RT) Ellyn Barber MD aluminum-magnesium hydroxide-simethicone (MAALOX) 40-40-4 mg/mL oral suspension 30 mL 30 mL oral Q6H PRN Dariana Noe MD amitriptyline (ELAVIL) tablet 37.5 mg 37.5 mg oral Nightly Ellyn Barber MD 37.5 mg at 03/23/232143 bisacodyL (DULCOLAX) suppository 10 mg 10 mg rectal Daily PRN Dariana Noe MD chlordiazePOXIDE (LIBRIUM) capsule 50 mg 50 mg oral Q6H Dariana Noe MD 50 mg at 03/23/232347 Followed by [START ON 03/24/2023] chlordiazePOXIDE (LIBRIUM) capsule 50 mg 50 mg oral Q8H Dariana Noe MD Followed by [START ON 03/25/2023] chlordiazePOXIDE (LIBRIUM) capsule 25 mg 25 mg oral Q8H Dariana Noe MD [START ON 03/24/2023] diclofenac sodium (VOLTAREN) 1 % gel 4 g 4 g topical TID Ellyn Barber MD dicyclomine (BENTYL) capsule 20 mg 20 mg oral Q6H PRN Dariana Noe MD enoxaparin (LOVENOX) syringe 40 mg 40 mg subcutaneous Daily-2100 Dariana Noe MD 40 mg at 03/23/232145 folic acid (FOLVITE) tablet 1 mg 1 mg oral Daily Dariana Noe MD 1 mg at 03/23/23 172 hydrOXYzine (VISTARIL) capsule 50 mg 50 mg oral Q6H PRN Dariana Noe MD ibuprofen (ADVIL,MOTRIN) tablet 600 mg 600 mg oral Q8H PRN Dariana Noe MD 600 mg at 03/23/232143 loperamide (IMODIUM) capsule 2 mg 2 mg oral Q8H PRN Dariana Noe MD loperamide (IMODIUM) capsule 4 mg 4 mg oral Once PRN Dariana Noe MD LORazepam (ATIVAN) injection 1 mg 1 mg intravenous Q4H PRN Dariana Noe MD LORazepam (ATIVAN) tablet 1 mg 1 mg oral Q4H PRN Ellyn Barber MD Or LORazepam (ATIVAN) tablet 1 mg 1 mg oral Q2H PRN Ellyn Barber MD Or LORazepam (ATIVAN) injection 1 mg 1 mg intravenous Q1H PRN Ellyn Barber MD Or LORazepam (ATIVAN) injection 1 mg 1 mg intramuscular Q1H PRN Ellyn Barber MD Or LORazepam (ATIVAN) injection 2 mg 2 mg intravenous Q1H PRN Ellyn Barber MD Or LORazepam (ATIVAN) injection 2 mg 2 mg intramuscular Q1H PRN Ellyn Barber MD LORazepam (ATIVAN) injection 2 mg 2 mg intravenous Once PRN Dariana Noe MD methocarbamoL (ROBAXIN) tablet 750 mg 750 mg oral Q6H PRN Dariana Noe MD 750 mg at 03/23/232143 [START ON 03/24/2023] metoprolol XL (TOPROL-XL) extended release tablet 25 mg 25 mg oral Daily Ellyn Barber MD multivit zvsbaeka-rwui-HF-calcium (THERA-M) tablet 1 tablet 1 tablet oral Daily Dariana Noe MD 1 tablet at 03/23/23 1727 [START ON 03/24/2023] nicotine (NICODERM CQ) 14 mg patch 24 hour 1 patch 1 patch transdermal Daily Ellyn Barber MD ondansetron ODT (ZOFRAN-ODT) disintegrating tablet 4 mg 4 mg oral Q6H PRN Dariana Noe MD Or ondansetron (ZOFRAN) injection 4 mg 4 mg intravenous Q6H PRN Dariana Noe MD senna (SENOKOT) tablet 2 tablet 17.2 mg oral Nightly PRN Dariana Noe MD [START ON 03/24/2023] spironolactone (ALDACTONE) tablet 25 mg 25 mg oral Daily Ellyn Barber MD thiamine (VITAMIN B1) tablet 100 mg 100 mg oral Daily Dariana Noe MD 100 mg at 03/23/23 1727 topiramate (TOPAMAX) tablet 100 mg 100 mg oral BID Ellyn Barber MD Social History Tobacco Use Smoking status: Every Day Packs/day: .25 Types: Cigarettes Start date: 05/21/2000 Smokeless tobacco: Never Substance and Sexual Activity Drug use: Not Currently Sexual activity: Defer Alcohol Use: Not At Risk (09/26/2022) AUDIT-C Frequency of Alcohol Consumption: 4 or more times a week Average Number of Drinks: 1 or 2 Frequency of Binge Drinking: Never Family History Problem Relation Age of Onset Diabetes Mother Dementia Father Review of Systems: 1. Constitutional Denies: weight loss, weight gain, fever, chills, night sweats, fatigue 2. Eyes Denies: change in vision, double vision, eye pain, eye discharge, icterus 3. ENT Denies: change in hearing, ear pain, ear discharge, nose bleed, nasal congestion, sore throat 4. Respiratory Denies: SOB, wheezing, cough, sputum, hemoptysis 5. CV Denies: chest pain, palpitations, syncope, edema, dyspnea 6. GI Denies: abdominal pain, decreased appetite, nausea, vomiting, change in bowel habitus, diarrhea, constipation, melena, BRBPR 7. Denies: dysuria, frequency, hematuria, nocturia, urgency 8. Metabolic Denies: cold intolerance, heat intolerance, polyphagia, polydipsia 9. Neurologic Denies: headache, dizziness, seizure, change in mental status, focal weakness, focal numbness 10. Musculoskeletal Denies: myalgia, joint redness, joint swelling, extremity pain 11. Hematologic Denies: bleeding, bruising, hematoma, lymphadenopathy, icterus OBJECTIVE Vitals: Arrival Vitals [03/23/23 1406] Temp (!) 35.8 ??C (96.5 ??F) Pulse 84 Resp 18 BP 121/88 SpO2 100 % Temp src Temporal Heart Rate Source Patient Position Sitting BP Location Left arm FiO2 (%) 24hr Min/Max: Temp Min: 35.8 ??C (96.5 ??F) Max: 36.4 ??C (97.5 ??F) Pulse Min: 84 Max: 92 BP Min: 121/88 Max: 129/89 Resp Min: 18 Max: 18 SpO2 Min: 100 % Max: 100 % Most Recent : Vitals: 03/23/232002 BP: 129/91 Pulse: 91 Resp: 18 Temp: 36.4 ??C (97.5 ??F) SpO2: 100% Intake/Output Summary (Last 24 hours) at 03/23/2023 3469 Last data filed at 03/23/2023 1700 Gross per 24 hour Intake 240 ml Output -- Net 240 ml Physical exam: General: awake, alert, oriented to person, place, and time. No acute distress Eyes: no scleral icterus, extraocular motion is intact, pupils are equal Neck: supple Pharynx: No gross oral lesion, tongue midline, mucosa moist Lungs: clear to auscultation with no wheezes or rales Heart: normal rate, normal rhythm, normal s1 and s2, no murmur noted Abd: present bowel sounds, Non Tender, Non distended Extremities: No gross edema, strength exam is 5/5 and symmetric Neuro: CN 2-12 is grossly intact, has no focal weakness Musculoskeletal: no gross joint erythema, edema, tenderness Psychiatric: normal affect and mood Lab/Radiology/Diagnostic Review: Recent Results (from the past 24 hour(s)) CBC without differential Collection Time: 03/23/23 10:56 AM Result Value Ref Range WBC 4.8 3.8 - 9.9 K/cumm Hgb 12.2 11.9 - 15.5 g/dL Hct 36.7 35.6 - 45.5 % Plt 213 150 - 400 K/cumm MPV 9.1 9.1 - 12.3 fL RBC 3.44 (L) 3.90 - 5.20 M/cumm MCV 106.7 (H) 81.3 - 96.4 fL MCH 35.5 (H) 27.1 - 33.3 pg MCHC 33.2 32.3 - 35.7 g/dL RDW CV 13.8 11.1 - 14.9 % RDW SD 54.1 (H) 35.7 - 48.1 fL NRBC abs 0.00 0.00 - 0.01 K/cumm Comprehensive metabolic panel Collection Time: 03/23/23 10:56 AM Result Value Ref Range Sodium 138 135 - 145 mmol/L Potassium, pl 4.0 3.3 - 4.9 mmol/L Chloride 102 97 - 110 mmol/L CO2 24 22 - 32 mmol/L Anion gap 13 2 - 15 mmol/L BUN 10 6 - 25 mg/dL Creatinine 0.74 0.60 - 1.10 mg/dL Glucose 115 70 - 199 mg/dL Calcium 8.5 8.5 - 10.3 mg/dL Bilirubin, total 0.7 0.1 - 1.2 mg/dL Protein, pl 6.3 (L) 6.5 - 8.5 g/dL Albumin 3.9 3.5 - 5.0 g/dL Alk phos 114 40 - 130 Units/L ALT 13 7 - 45 Units/L AST 76 (H) 10 - 45 Units/L eGFR Collection Time: 03/23/23 10:56 AM Result Value Ref Range eGFR 100 mL/min/1.73 m2 Protime-INR Collection Time: 03/23/23 4:31 PM Result Value Ref Range PT 10.6 10.3 - 13.7 sec INR 0.93 0.90 - 1.20 aPTT Collection Time: 03/23/23 4:31 PM Result Value Ref Range aPTT 32 28 - 38 sec Ethanol Collection Time: 03/23/23 4:31 PM Result Value Ref Range Ethanol <10 <=10 mg/dL Drugs of Abuse Screen, Urine without Confirmation Collection Time: 03/23/23 6:53 PM Result Value Ref Range Amphetamine, ur Not Detected CutOff 500ng/mL Barbiturates, ur Not Detected CutOff 200ng/mL Benzodiazepines, ur Not Detected CutOff 100ng/mL Cannabinoids, ur Screen Positive, presumptive (A) CutOff 50 ng/mL Cocaine, ur Not Detected CutOff 150ng/mL Fentanyl, Ur Not Detected Cutoff 1 ng/mL Methadone, ur Not Detected CutOff 300ng/mL Opiates, ur Screen Positive, presumptive (A) CutOff 300ng/mL Oxycodone, ur Not Detected CutOff 100ng/mL Phencyclidine, ur Not Detected CutOff 25 ng/mL Urine Creatinine 120 mg/dL A/P Alcohol dependence. Monitor per [facility] protocol. Daily folic acid, thiamine, and multivitamin. Narcotic dependence. Requests to stop norco. On librium taper and prn meds as ordered for withdrawal symptoms Chronic lower back pain. Diclofenac gel TID, prn ibuprofen and robaxin. Discussed resuming outpatient PT. Tobacco use. On daily nicotine patch HTN. Resume daily Toprol XL and aldactone SC Lovenox for vte prophylaxis Code status: Full Anticipated length of stay is greater than 2 midnights My total encounter time was 55 minutes which was spent in the activities documented in the note. This includes time spent prior to the visit and after the visit in direct care of the patient. This time does not include time spent in any separately reportable services. Voice recognition software [employer] was used dictate and transcribe this document. Supervisor [place] variances may occur. Despite proofreading, typographical errors may occur. Ellyn Barber MD S AND MERCHANDISING REPRESENTATIVE documented in this encounter Nursing Notes * Tala Ponce RN - 03/27/2023 12:58 PM CST Patient discharged to home via private vehicle accompanied by friend. Discharge instructions reviewed with patient and/or employment program representative. Mobile pharmacy medications and/or prescriptions provided. Belongings/home medications returned. S AND MERCHANDISING REPRESENTATIVE * Peyton Harvey RN - 03/26/2023 12:00 AM CST PCT reported that she helped patient to bathroom at apprx [phone]. Pt gait very unsteady, pt thought she was at home, stated she was having back pain. At 0000, this RN checked on patient. Pt was sleeping in bed, bed alarm on. S AND MERCHANDISING REPRESENTATIVE documented in this encounter Miscellaneous Notes * Plan of Care - Mary Segura RN - 03/27/2023 3:22 AM CST Problem: Health Behavior: Goal: Understanding of discharge needs will improve Outcome: Progressing Problem: Lack of Knowledge: Goal: Knowledge on safety and abstaining from self-injurious behavior will increase Outcome: Progressing Goal: Knowledge of therapies/resources will increase Outcome: Progressing Problem: Health Behavior: Goal: Ability to manage health-related needs will improve Outcome: Progressing Problem: Low Risk for Self-Injurious Behavior: Goal: Ability to remain free from injury will improve Description: (Low Risk) Outcome: Progressing Problem: Lack of Knowledge: Goal: Knowledge of disease or condition will improve Outcome: Progressing Goal: Understanding of discharge needs will improve Outcome: Progressing Problem: Health Behavior: Goal: Ability to identify changes in lifestyle to reduce recurrence of condition will improve Outcome: Progressing Goal: Identification of resources available to assist in meeting health care needs will improve Outcome: Progressing Problem: Physical Regulation: Goal: Ability to maintain clinical measurements within normal limits will improve Outcome: Progressing Goal: Complications related to the disease process, condition or treatment will be avoided or minimized Outcome: Progressing Problem: Respiratory: Goal: Ability to maintain adequate ventilation will improve Outcome: Progressing Problem: Safety: Goal: Ability to remain free from injury will improve Outcome: Progressing Problem: Activity: Goal: Will experience uninterrupted episodes of sleep Outcome: Progressing Problem: Lack of Knowledge: Goal: Knowledge of disease or condition and prescribed therapeutic regimen will improve Outcome: Progressing Problem: Coping: Goal: Ability to identify and develop effective coping behavior will improve Outcome: Progressing Goal: Familys ability to cope with current situation will improve Outcome: Progressing Problem: Fluid Volume: Goal: Risk for dehydration will decrease Outcome: Progressing Problem: Health Behavior: Goal: Ability to identify and alter actions that are detrimental to health will improve Outcome: Progressing Problem: Medication: Goal: Compliance with prescribed medication regimen will improve Outcome: Progressing Problem: Physical Regulation: Goal: Ability to maintain clinical measurements within normal limits will improve Outcome: Progressing Problem: Safety: Goal: Ability to remain free from injury will improve Outcome: Progressing Problem: Self-Concept: Goal: Ability to develop realistic plans in adapting to changes will improve Outcome: Progressing Problem: Sensory: Goal: Satisfaction with pain management regimen will improve Outcome: Progressing Problem: Activity: Goal: Ability to return to normal activity level will improve Outcome: Progressing Problem: Lack of Knowledge: Goal: Knowledge of the prescribed therapeutic regimen will improve Outcome: Progressing Problem: Coping: Goal: Ability to cope will improve Outcome: Progressing Problem: Health Behavior: Goal: Identification of resources available to assist in meeting health care needs will improve Outcome: Progressing Problem: Sensory: Goal: Pain level will decrease Outcome: Progressing Problem: Lack of Knowledge: Goal: Ability to state ways to decrease the risk of falls will improve Outcome: Progressing Problem: Safety: Goal: Will remain free from falls Outcome: Progressing Goal: Will remain free from injury from falls Outcome: Progressing Goal: Will remain free from falls and injury in home environment Outcome: Progressing Goals: Clinical Goals for the Shift: Free from falls, stable vitals and labs, manage symptoms of withdrawal. Summary: Pt is alert and oriented. Vital signs stable. Pt had complaints of pain, scheduled med given. Pt has mild tremor with arms extended. Call light within reach. Pt calls out appropriately. Pt resting comfortably. S AND MERCHANDISING REPRESENTATIVE * Plan of Care - Katie Arias RN - 03/26/2023 6:37 PM CST Goals: Clinical Goals for the Shift: free from injury, adequate pain control, vitals, neuro checks within normal limits. tremors and anxiety to decrease. gait to improve. Summary: Pt has had very mild tremors. No seizure activity. Assessment of patient???s baseline is established at the beginning of the shift in flowsheets. Patient reassessed per order, unexpected findings and/or deviations from baseline are captured in flowsheets. Frequent safety checks and comfortrounds provided. Orders and/or nursing care completed as indicated. Patient monitored for response to interventions and treatments as documented in flowsheets. S AND MERCHANDISING REPRESENTATIVE * Plan of Care - Peyton Harvey RN - 03/26/2023 4:41 AM CST Problem: Health Behavior: Goal: Understanding of discharge needs will improve Outcome: Ongoing Problem: Lack of Knowledge: Goal: Knowledge on safety and abstaining from self-injurious behavior will increase Outcome: Ongoing Goal: Knowledge of therapies/resources will increase Outcome: Ongoing Problem: Health Behavior: Goal: Ability to manage health-related needs will improve Outcome: Ongoing Problem: Low Risk for Self-Injurious Behavior: Goal: Ability to remain free from injury will improve Description: (Low Risk) Outcome: Ongoing Problem: Lack of Knowledge: Goal: Knowledge of disease or condition will improve Outcome: Ongoing Goal: Understanding of discharge needs will improve Outcome: Ongoing Problem: Physical Regulation: Goal: Ability to maintain clinical measurements within normal limits will improve Outcome: Ongoing Goal: Complications related to the disease process, condition or treatment will be avoided or minimized Outcome: Ongoing Problem: Lack of Knowledge: Goal: Knowledge of disease or condition and prescribed therapeutic regimen will improve Outcome: Ongoing Problem: Activity: Goal: Will experience uninterrupted episodes of sleep Outcome: Ongoing Problem: Medication: Goal: Compliance with prescribed medication regimen will improve Outcome: Ongoing Problem: Health Behavior: Goal: Ability to identify and alter actions that are detrimental to health will improve Outcome: Ongoing Goals: Clinical Goals for the Shift: free from injury, adequate pain control, vitals, neuro checks within normal limits. tremors and anxiety to decrease. gait to improve. Summary: Pt has been A&Ox4, anxious, gait unsteady. Scheduled medications given as ordered. Prnmedications given for anxiety. Pt was placed in bed with bed alarm and educated that she was unsteady to call out before getting up. Pt was seen in diaz and asked how she got out of bed, she stated she turned the alarm off. Alarm is now taped shut. Pt has slept from midnight to 0500, tremors have decreased, speech is less slurred, anxiety appears to be less. No seizure activity. S AND MERCHANDISING REPRESENTATIVE * Plan of Care - Leatha Correa RN - 03/25/2023 2:51 PM CST Goals: Clinical Goals for the Shift: free from injury, adequate rest, adequate pain control, vitals, labs,neuro checks. Summary: Free from falls and injury. Did rest today. Ambulates with steady gait. Pt. Is impulsive with actions. Noted tremors of bilateral hands. Needs assist. Bed alarm used at intervals. Geneva Angel was notified of patient being tired this shift. Orders received. Neuro checks wnl except for tremors. Resting in room. Call light is in reach. Warm hand-off Ravi in to see patient this shift. S AND MERCHANDISING REPRESENTATIVE * Plan of Care - Peyton Harvey RN - 03/25/2023 5:29 AM CST Problem: Health Behavior: Goal: Understanding of discharge needs will improve Outcome: Progressing Problem: Lack of Knowledge: Goal: Knowledge on safety and abstaining from self-injurious behavior will increase Outcome: Progressing Goal: Knowledge of therapies/resources will increase Outcome: Progressing Problem: Health Behavior: Goal: Ability to manage health-related needs will improve Outcome: Progressing Problem: Low Risk for Self-Injurious Behavior: Goal: Ability to remain free from injury will improve Description: (Low Risk) Outcome: Progressing Problem: Lack of Knowledge: Goal: Knowledge of disease or condition will improve Outcome: Progressing Goal: Understanding of discharge needs will improve Outcome: Progressing Problem: Physical Regulation: Goal: Ability to maintain clinical measurements within normal limits will improve Outcome: Progressing Goal: Complications related to the disease process, condition or treatment will be avoided or minimized Outcome: Progressing Problem: Activity: Goal: Will experience uninterrupted episodes of sleep Outcome: Progressing Problem: Coping: Goal: Ability to identify and develop effective coping behavior will improve Outcome: Progressing Goal: Familys ability to cope with current situation will improve Outcome: Progressing Goals: Clinical Goals for the Shift: free from injury, adequate rest, adequate pain control, vitals, labs,neuro checks. Summary: Pt remains A&Ox4, scheduled medications given as ordered. PRN medications given for anxiety, restlessness, muscle aches, pain. Pt continues to be restless, walking in room and diaz. Pt has had no sleep this shift. No seizure activity. UPDATE 0721 At bedside shift report, found patient sleeping on couch, slumped over her purse, dressed, make up on. Pt was given scheduled librium at 0518. After waking up patient, gait is unsteady, words slurred. Pt directed to bed and alarm turned on. S AND MERCHANDISING REPRESENTATIVE S AND MERCHANDISING REPRESENTATIVE * Plan of Maureen - Ynes Vogel RN - 03/24/2023 6:03 PM CST Goals: Clinical Goals for the Shift: vss, minimize withdrawl symptoms, comfort and safety Summary: vss. Minimal withdrawal symptoms including mild anxiety. Medicated with tylenol and ibuprofen and diclofenac gel for c/o back pain. Denies other complaints. Problem: Health Behavior: Goal: Understanding of discharge needs will improve Outcome: Progressing Problem: Lack of Knowledge: Goal: Knowledge on safety and abstaining from self-injurious behavior will increase Outcome: Progressing Goal: Knowledge of therapies/resources will increase Outcome: Progressing Problem: Health Behavior: Goal: Ability to manage health-related needs will improve Outcome: Progressing Problem: Low Risk for Self-Injurious Behavior: Goal: Ability to remain free from injury will improve Description: (Low Risk) Outcome: Progressing S AND MERCHANDISING REPRESENTATIVE * Plan of Maureen - Lotus Leon RN - 03/24/2023 6:38 AM SALES AND MERCHANDISING REPRESENTATIVE Goals: Clinical Goals for the Shift: safety; stable vs; manage withdrawal s/s; manage pain s/s; comfort and rest Summary: Problem: Health Behavior: Goal: Understanding of discharge needs will improve Outcome: Ongoing Problem: Lack of Knowledge: Goal: Knowledge on safety and abstaining from self-injurious behavior will increase Outcome: Ongoing Goal: Knowledge of therapies/resources will increase Outcome: Ongoing Problem: Health Behavior: Goal: Ability to manage health-related needs will improve Outcome: Ongoing Problem: Low Risk for Self-Injurious Behavior: Goal: Ability to remain free from injury will improve Description: (Low Risk) Outcome: Ongoing S AND MERCHANDISING REPRESENTATIVE * Plan of Tala Doss RN - 03/23/2023 5:34 PM CST Problem: Health Behavior: Goal: Understanding of discharge needs will improve Outcome: Progressing Problem: Lack of Knowledge: Goal: Knowledge on safety and abstaining from self-injurious behavior will increase Outcome: Progressing Goal: Knowledge of therapies/resources will increase Outcome: Progressing Problem: Health Behavior: Goal: Ability to manage health-related needs will improve Outcome: Progressing Problem: Low Risk for Self-Injurious Behavior: Goal: Ability to remain free from injury will improve Description: (Low Risk) Outcome: Progressing Goals: Clinical Goals for the Shift: VSS, rest comfortably, free of falls adn injuries, management of wETOH withdraw symptoms Summary: Pt brought to room 3632 through our WHO program. PT A&Ox4. Pt free of falls and injuries and ambulating independently. Pt given all scheduled medications. Vital signs stable since being present on the floor. Pt currently resting comfortably in bed with call light within reach. S AND MERCHANDISING REPRESENTATIVE documented in this encounter Plan of Treatment Not on file documented as of this encounter Procedures Procedure Name Priority Date/Time Associated Diagnosis Comments HEPATIC FUNCTION PANEL Routine 03/27/2023 3:12 AM SALES AND MERCHANDISING REPRESENTATIVE HEPATIC FUNCTION PANEL Routine 03/26/2023 4:48 AM SALES AND MERCHANDISING REPRESENTATIVE HEPATIC FUNCTION PANEL Routine 03/25/2023 4:52 AM SALES AND MERCHANDISING REPRESENTATIVE EGFR Routine 03/24/2023 4:10 AM SALES AND MERCHANDISING REPRESENTATIVE DIFFERENTIAL AUTO Routine 03/24/2023 4:1 0 AM SALES AND MERCHANDISING REPRESENTATIVE CBC WITH AUTO DIFFERENTIAL Routine 03/24/2023 4:10 AM SALES AND MERCHANDISING REPRESENTATIVE PHOSPHORUS Routine 03/24/2023 4:10 AM SALES AND MERCHANDISING REPRESENTATIVE MAGNESIUM Routine 03/24/2023 4:10 AM SALES AND MERCHANDISING REPRESENTATIVE HEPATIC FUNCTION PANEL Routine 03/24/2023 4:10 AM SALES AND MERCHANDISING REPRESENTATIVE BASIC METABOLIC PANEL Routine 03/24/2023 4:10 AM SALES AND MERCHANDISING REPRESENTATIVE DRUGS OF ABUSE SCREEN, URINE WITHOUT CONFIRMATION STAT 03/23/2023 6:53 PM SALES AND MERCHANDISING REPRESENTATIVE APTT STAT 03/23/2023 4:31 PM SALES AND MERCHANDISING REPRESENTATIVE PROTIME-INR STAT 03/23/2023 4:31 PM SALES AND MERCHANDISING REPRESENTATIVE ETHANOL STAT 03/23/2023 4:31 PM SALES AND MERCHANDISING REPRESENTATIVE documented in this encounter Results * (ABNORMAL) Hepatic function panel (03/27/2023 3:12 AM SALES AND MERCHANDISING REPRESENTATIVE) Bilirubin, total <0.2 0.1 - 1.2 mg/dL [facility] Bilirubin, direct <0.2 0.1 - 0.3 mg/dL [facility] Protein, pl 6.2(L) 6.5 - 8.5 g/dL [facility] Albumin 3.6 3.5 - 5.0 g/dL [facility] Alk phos 84 40 - 130 Units/L [facility] ALT 8 7 - 45 Units/L [facility] AST 18 10 - 45 Units/L [facility] Blood 03/27/2023 3:12 AM SALES AND MERCHANDISING REPRESENTATIVE 03/27/2023 4:08 AM SALES AND MERCHANDISING REPRESENTATIVE us Ellyn Barber MD LAB BLOOD ORDERABLES Fin al Result [facility] ([place] Department [place] [address] * (ABNORMAL) Hepatic function panel (03/26/2023 4:48 AM SALES AND MERCHANDISING REPRESENTATIVE) Bilirubin, total <0.2 0.1 - 1.2 mg/dL [facility] Bilirubin, direct <0.2 0.1 - 0.3 mg/dL [facility]) Protein, pl 5.2(L) 6.5 - 8.5 g/dL [facility] Albumin 3.3(L) 3.5 - 5.0 g/dL [facility] Alk phos 79 40 - 130 Units/L [facility] ALT 7 7 - 45 Units/L [facility] AST 18 10 - 45 Units/L [facility]) Blood 03/26/2023 4:48 AM SALES AND MERCHANDISING REPRESENTATIVE 03/26/2023 6:08 AM SALES AND MERCHANDISING REPRESENTATIVE Ellyn Barber MD LAB BLOOD ORDERABLES Fin al Result [facility] ([place]) 1 [facility] [employer] [place], [place] [id number] * (ABNORMAL) Hepatic function panel (03/25/2023 4:52 AM SALES AND MERCHANDISING REPRESENTATIVE) Bilirubin, total <0.2 0.1 - 1.2 mg/dL [facility] Bilirubin, direct <0.2 0.1 - 0.3 mg/dL [facility]) Protein, pl 6.0(L) 6.5 - 8.5 g/dL [facility]) Albumin 3.5 3.5 - 5.0 g/dL [facility]) Alk phos 93 40 - 130 Units/L [facility] ALT 9 7 - 45 Units/L [facility] AST 27 10 - 45 Units/L [facility]) Blood 03/25/2023 4:52 AM SALES AND MERCHANDISING REPRESENTATIVE 03/25/2023 6:03 AM SALES AND MERCHANDISING REPRESENTATIVE us Ellyn Barber MD LAB BLOOD ORDERABLES Fin al Result [facility] ([place]) 1 [facility] [employer] [place], [place] [id number] * eGFR (03/24/2023 4:10 AM SALES AND MERCHANDISING REPRESENTATIVE) eGFR 110 mL/min/1. 73 m2 [facility] Comment: Interpretive Data Reference Interval Normal ?>/= 90 mL/min/1.73m2 Mildly decreased* ? 60 - 89 mL/min/1.73m2 Mildly to moderately decreased ?45 - 59 mL/min/1.73m2 Moderately to severely decreased ??30 - 44 mL/min/1.73m2 Severely decreased ?15 - 29 mL/min/1.73m2 Kidney Failure ?< 15 ??mL/min/1.73m2 *Relative to young adult level Estimated glomerular filtration rate is determined by the 2020 CKD-EPI equation recommended by the National Kid[employer] (A Unifying Approach to GFR Estimation: Recommendations of the NKF-ASK Task Force on Reassessing the Inclusion of Race in Diagnosing Kidney Disease, JASN 2020). The CKD-EPI equation should not be used for patients with unstable renal function and has not been validated in children and those over 70. Current interpretive data was last reviewed 2021. Blood 03/24/2023 4:10 AM SALES AND MERCHANDISING REPRESENTATIVE 03/24/2023 5:18 AM SALES AND MERCHANDISING REPRESENTATIVE us Ellyn Barber MD LAB BLOOD ORDERABLES Fin al Result [facility] 1 [facility] Department of Laboratories [place], [place] [id number] * (ABNORMAL) Differential, auto (03/24/2023 4:10 AM SALES AND MERCHANDISING REPRESENTATIVE) Neutrophil abs 1.3(L) 1.5 - 6.5 K/cumm [facility] Imm gran abs 0.0 0.0 - 0.1 K/cumm [facility]) Lymphocyte abs 1.5 0.8 - 3.3 K/cumm [facility]) Monocyte abs 0.3 0.2 - 0.8 K/cumm [facility]) Eosinophil abs 0.1 0.0 - 0.5 K/cumm [facility]) Basophil abs 0.1 0.0 - 0.1 K/cumm [facility]) Neutrophil pct 39.0 % [facility] ([place] Comment: Interpretive Data Percent cell count reference ranges are not reported, since discordance with absolute values may lead to misinterpretation of CBC data. Current Interpretive Data was last revised on 2017. Imm gran pct 0.3 % [facility] Comment: Interpretive Data Percent cell count reference ranges are not reported, since discordance with absolute values may lead to misinterpretation of CBC data. Current Interpretive Data was last revised on 2017. Lymphocyte pct 45.9 % [facility] Comment: Interpretive Data Percent cell count reference ranges are not reported, since discordance with absolute values may lead to misinterpretation of CBC data. Current Interpretive Data was last revised on 2017. Monocyte pct 9.7 % [facility] ([place] Comment: Interpretive Data Percent cell count reference ranges are not reported, since discordance with absolute values may lead to misinterpretation of CBC data. Current Interpretive Data was last revised on 2017. Eosinophil pct 3.3 % [facility] Comment: Interpretive Data Percent cell count reference ranges are not reported, since discordance with absolute values may lead to misinterpretation of CBC data. Current Interpretive Data was last revised on 2017. Basophil pct 1.8 % [facility] Comment: Interpretive Data Percent cell count reference ranges are not reported, since discordance with absolute values may lead to misinterpretation of CBC data. Current Interpretive Data was last revised on 2017. Blood 03/24/2023 4:10 AM SALES AND MERCHANDISING REPRESENTATIVE 03/24/2023 5:15 AM SALES AND MERCHANDISING REPRESENTATIVE us Ellyn Barber MD LAB BLOOD ORDERABLES Fin al Result [facility] 1 [facility] Department [place] [address] * (ABNORMAL) Hepatic function panel (03/24/2023 4:10 AM SALES AND MERCHANDISING REPRESENTATIVE) Bilirubin, total 0.4 0.1 - 1.2 mg/dL [facility]) Bilirubin, direct <0.2 0.1 - 0.3 mg/dL [facility]) Protein, pl 5.4(L) 6.5 - 8.5 g/dL [facility]) Albumin 3.3(L) 3.5 - 5.0 g/dL [facility]) Alk phos 103 40 - 130 Units/L [facility] ALT 10 7 - 45 Units/L [facility] AST 41 10 - 45 Units/L [facility] Blood 03/24/2023 4:10 AM SALES AND MERCHANDISING REPRESENTATIVE 03/24/2023 5:18 AM SALES AND MERCHANDISING REPRESENTATIVE Ellyn Barber MD LAB BLOOD ORDERABLES Fin al Result [facility] 1 [facility] [place] [address] * Phosphorus (03/24/2023 4:10 AM SALES AND MERCHANDISING REPRESENTATIVE) Phosphorus, pl 3.4 2.3 - 4.5 mg/dL [facility]) Blood 03/24/2023 4:10 AM SALES AND MERCHANDISING REPRESENTATIVE 03/24/2023 5:18 AM SALES AND MERCHANDISING REPRESENTATIVE Ellyn Barber MD LAB BLOOD ORDERABLES Fin al Result [facility] ([place]) 1 [facility] [place] [address] * Magnesium (03/24/2023 4:10 AM SALES AND MERCHANDISING REPRESENTATIVE) Magnesium 1.8 1.4 - 2.5 mg/dL [facility]) Blood 03/24/2023 4:10 AM SALES AND MERCHANDISING REPRESENTATIVE 03/24/2023 5:18 AM SALES AND MERCHANDISING REPRESENTATIVE us Ellyn Barber MD LAB BLOOD ORDERABLES Fin al Result [facility] 1 [facility] Department [place] [address] * (ABNORMAL) CBC with auto differential (03/24/2023 4:10 AM SALES AND MERCHANDISING REPRESENTATIVE) WBC 3.3(L) 3.8 - 9.9 K/cumm [facility] Hgb 11.7(L) 11.9 - 15.5 g/dL [facility] Comment: Interpretive Data A reference range for this assay has not been established for patients with an unknown legal sex. Please refer to the laboratory test catalog for established sex-specific reference intervals. Current interpretive data was last revised on 2023. Hct 35.6 35.6 - 45.5 % [facility] Comment: Interpretive Data A reference range for this assay has not been established for patients with an unknown legal sex. Please refer to the laboratory test catalog for established sex-specific reference intervals. Current interpretive data was last revised on 2023. Plt 214 150 - 400 K/cumm [facility] MPV 9.7 9.1 - 12.3 fL [facility] RBC 3.38(L) 3.90 - 5.20 M/cumm [facility] Comment: Interpretive Data A reference range for this assay has not been established for patients with an unknown legal sex. Please refer to the laboratory test catalog for established sex-specific reference intervals. Current interpretive data was last revised on 2023. MCV 105.3(H) 81.3 - 96.4 fL [facility] MCH 34.6(H) 27.1 - 33.3 pg [facility]) MCHC 32.9 32.3 - 35.7 g/dL [facility]) RDW CV 13.7 11.1 - 14.9 % [facility]) RDW SD 53.4(H) 35.7 - 48.1 fL [facility]) NRBC abs 0.00 0.00 - 0.01 K/cumm [facility]) Blood 03/24/2023 4:10 AM SALES AND MERCHANDISING REPRESENTATIVE 03/24/2023 5:15 AM SALES AND MERCHANDISING REPRESENTATIVE Ellyn Barber MD LAB BLOOD ORDERABLES Fin al Result [facility] ([place] 1 [facility] Department [place] [address] * Basic metabolic panel (03/24/2023 4:10 AM SALES AND MERCHANDISING REPRESENTATIVE) Sodium 136 135 - 145 mmol/L [facility]) Potassium, pl 3.4 3.3 - 4.9 mmol/L [facility]) Chloride 103 97 - 110 mmol/L [facility] CO2 22 22 - 32 mmol/L [facility] Anion gap 11 2 - 15 mmol/L [facility]) BUN 11 6 - 25 mg/dL [facility]) Creatinine 0.63 0.60 - 1.10 mg/dL [facility] Glucose 94 70 - 199 mg/dL [facility] Comment: Interpretive Data Fasting glucose >/= 126 mg/dl is diagnostic for diabetes. ?? Fasting is defined as no caloric intake for at least 8 hours. Fasting glucose between 100 mg/dl to 125 mg/dl is diagnostic of prediabetes. In a patient with classic symptoms of hyperglycemia or hyperglycemic crisis, a random glucose >/= 200 mg/dl is diagnostic for diabetes. In the absence of unequivocal hyperglycemia, results should be confirmed by repeat testing. The classification and Diagnosis of Diabetes Diabetes Care 202; 46: S19-S40. Current interpretive data was last revised 2022. Calcium 8.5 8.5 - 10.3 mg/dL [facility]) Blood 03/24/2023 4:10 AM SALES AND MERCHANDISING REPRESENTATIVE 03/24/2023 5:18 AM SALES AND MERCHANDISING REPRESENTATIVE Ellyn Barber MD LAB BLOOD ORDERABLES Fin al Result [facility] 1 [facility] Department [place] [address] * (ABNORMAL) Drugs of Abuse Screen, Urine without Confirmation (03/23/2023 6:53 PM SALES AND MERCHANDISING REPRESENTATIVE) Amphetamine, ur Not Detected CutOff 500ng/mL [facility]) Comment: Interpretive Data - Amphetamines: ??Samples containing greater than 500 ng/mL d-methamphetamine ??or other cross-reacting amphetamine compounds are reported as positive. ??Amphetamine immunoassays are subject to significant false positive rates due to cross-reactivity of non-amphetamine drugs. Confirmatory testing required for definitive results. Current Interpretive Data was last reviewed 2022. Barbiturates, ur Not Detected CutOff 200ng/mL [facility]) Comment: Interpretive Data - Barbiturates: ??Samples containing greater than 200 ng/mL secobarbital or other cross-reacting barbiturate compounds are reported as positive. ??False positive and false negative results are possible. Confirmatory testing required for definitive results. Current Interpretive Data was last reviewed 2022. Benzodiazepines, ur Not Detected CutOff 100ng/mL [facility]) Comment: Interpretive Data - Benzodiazepines: ??Samples containing greater than 100 ng/mL nordiazepam or other cross-reacting compounds are reported as positive. False positive and false negative results are possible. Confirmatory testing required for definitive results. Current Interpretive Data was last reviewed 2022. Cannabinoids, ur Screen Positive, presumptive (A) CutOff 50 ng/mL [facility] Comment: Interpretive Data - Cannabinoids: ??Samples containing greater than 50 ng/mL delta-9 THC -COOH or other cross-reacting compounds are reported as positive. ??False positive and false negative results are possible. ??Confirmatory testing required for definitive results. Current Interpretive Data was last reviewed 2022. Cocaine, ur Not Detected CutOff 150ng/mL [facility] Comment: Interpretive Data - Cocaine: ??Samples containing greater than 150 ng/mL benzoylecgonine or other cross-reacting compounds are reported as positive. False positive and false negative results are possible. Confirmatory testing required for definitive results. Current Interpretive Data was last reviewed 2022. Fentanyl, Ur Not Detected Cutoff 1 ng/mL [facility] Comment: Interpretive Data - Fentanyl: ??Samples containing greater than 1 ng/mL fentanyl or other cross-reacting fentanyl compounds are reported as positive. ??False positive and false negative results are possible. Confirmatory testing required for definitive results. Current Interpretive Data was last reviewed 2022. Methadone, ur Not Detected CutOff 300ng/mL [facility] ([place]) Comment: Interpretive Data - Methadone: ??Samples containing greater than 300 ng/mL d,l-methadone or other cross-reacting compounds are reported as positive. ??False positive and false negative results are possible. Confirmatory testing required for definitive results. Current Interpretive Data was last reviewed 2022. Opiates, ur Screen Positive, presumptive (A) CutOff 300ng/mL [facility] ([place]) Comment: Interpretive Data - Opiates: ??Samples containing greater than 300 ng/mL morphine or other cross-reacting compounds are reported as positive. ??False positive and false negative results are possible. Confirmatory testing required for definitive results. Current Interpretive Data was last reviewed 2022. Oxycodone, ur Not Detected CutOff 100ng/mL [facility] ([place]) Comment: Interpretive Data - Oxycodone: ??Samples containing greater than 100 ng/mL oxycodone or other cross-reacting compounds are reported as ??positive. ??False positive and false negative results are possible. Confirmatory testing required for definitive results. Current Interpretive Data was last reviewed 2022. Phencyclidine, ur Not Detected CutOff 25 ng/mL [facility] ([place]) Comment: Interpretive Data - Phencyclidine: ??Samples containing greater than 25 ng/mL phencyclidine or other cross-reacting compounds are reported as positive. ??False positive and false negative results are possible. Confirmatory testing required for definitive results. Current Interpretive Data was last reviewed 2022. Urine Creatinine 120 mg/dL [facility] ([place]) Comment: Interpretive Data Urine Creatinine: < 10 mg/dL is extremely dilute = or > 10 but < 20 mg/dL is dilute = or > 20 mg/dL is normal Current Interpretive Data was last revised on 2017. Urine 03/23/2023 6:53 PM SALES AND MERCHANDISING REPRESENTATIVE 03/23/2023 6:57 PM SALES AND MERCHANDISING REPRESENTATIVE Narrative [facility] - 03/23/2023 7:24 PM SALES AND MERCHANDISING REPRESENTATIVE Drug of Abuse screening is performed by immunoassay for medical purposes only. ??This is not to be used for Pain Management purposes. Result [facility] Dariana Noe MD LAB URINE ORDERABLES Tanesha l Result Performing Organization Address [facility] Co de Phone Number [facility] ([place]) [address] [place] [address] * Ethanol (03/23/2023 4:31 PM SALES AND MERCHANDISING REPRESENTATIVE) Ethanol <10 <=10 mg/dL [facility] ([place]) Comment: Interpretive Data Legal limit of intoxication > or = 80 mg/dL Levels > or = 400 mg/dL are potentially TOXIC. Current interpretive data was last revised on 2018. Blood 03/23/2023 4:31 PM SALES AND MERCHANDISING REPRESENTATIVE 03/23/2023 4:36 PM SALES AND MERCHANDISING REPRESENTATIVE Result [facility] Dariana Noe MD LAB BLOOD ORDERABLES Tanesha l Result Performing Organization Address [facility] Co de Phone Number [facility] ([place]) [address] [place] [address] * aPTT (03/23/2023 4:31 PM SALES AND MERCHANDISING REPRESENTATIVE) aPTT 32 28 - 38 sec [facility] ([place]) Comment: Interpretive Data Heparin therapeutic range: 66.0 - 100.0 seconds. Range based on correlation with therapeutic heparin activity range of 0.3 - 0.7 Units/mL. Current interpretive data was last revised on 2023. Blood 03/23/2023 4:31 PM SALES AND MERCHANDISING REPRESENTATIVE 03/23/2023 4:36 PM SALES AND MERCHANDISING REPRESENTATIVE Result [facility] Dariana Noe MD LAB BLOOD ORDERABLES Tanesha l Result [facility] ([place]) [address] [facility] [place] [employer] [place] [address] * Protime-INR (03/23/2023 4:31 PM SALES AND MERCHANDISING REPRESENTATIVE) PT 10.6 10.3 - 13.7 sec [facility] ([place] INR 0.93 0.90 - 1.20 [facility] ([place]) Comment: Interpretive data Oral anticoagulant therapeutic ranges: Venous thromboembolism prophylaxis or treatment: 2.0-3.0 CARDIOLOGY Standard range: 2.0-3.0 High-intensity range: 2.5-3.5 Refer to indication-specific guidelines for appropriate target ranges for prosthetic heart valve replacement. Current interpretive data was last revised on 2019. Blood 03/23/2023 4:31 PM SALES AND MERCHANDISING REPRESENTATIVE 03/23/2023 4:36 PM SALES AND MERCHANDISING REPRESENTATIVE Dariana Noe MD LAB BLOOD ORDERABLES Tanesha l Result Performing Organization Address City/[facility]/ZIP Co de Phone Number [facility] ([place]) [address] [facility] [place] [address] documented in this encounter Visit Diagnoses Diagnosis Alcohol abuse- Primary Nondependent alcohol abuse, unspecified drinking behavior Alcohol abuse Nondependent alcohol abuse, unspecified drinking behavior Alcohol withdrawal syndrome without complication (HCC) Narcotic dependence (HCC) Opioid type dependence, unspecified abuse Chronic low back pain Lumbago documented in this encounter Admitting Diagnoses Diagnosis Alcohol withdrawal syndrome without complication (HCC) documented in this encounter Administered Medications Inactive Administered Medications - up to 3 most recent administrations Medication Order MAR Action Action Date Dose Rate Site acetaminophen (TYLENOL) tablet 500 mg 500 mg, oral, Every 6 hours PRN, fever, temperature greater than 38 C (100.4 F), Starting on Sun03/23/23 at 2038 Given 03/24/2023 4:28 PM SALES AND MERCHANDISING REPRESENTATIVE 500 mg Given 03/24/2023 6:04 AM SALES AND MERCHANDISING REPRESENTATIVE 500 mg Given 03/23/2023 9:44 PM SALES AND MERCHANDISING REPRESENTATIVE 500 mg albuterol 2.5 mg /3 mL (0.083 %) nebulizer solution 2.5 mg 2.5 mg, nebulization, Every 4 hours PRN (registered respiratory therapist), wheezing, shortness of breath, Starting on Sun03/23/23 at 2041, This therapy was substituted for Albuterol Inhaler per protocol. aluminum-magnesium hydroxide-simethicone (MAALOX) 40-40-4 mg/mL oral suspension 30 mL 30 mL, oral, Every 6 hours PRN, dyspepsia, Starting on Sun03/23/23 at 1604 amitriptyline (ELAVIL) tablet 37.5 mg 37.5 mg, oral, Nightly, First dose on Sun03/23/23 at 2115 Given 03/26/2023 8:27 PM SALES AND MERCHANDISING REPRESENTATIVE 37.5 mg Given 03/24/2023 8:53 PM SALES AND MERCHANDISING REPRESENTATIVE 37.5 mg Given 03/23/2023 9:44 PM SALES AND MERCHANDISING REPRESENTATIVE 37.5 mg bisacodyL (DULCOLAX) suppository 10 mg 10 mg, rectal, Daily PRN, other, no BM in 48 hours, Starting on Sun03/23/23 at 1604, Indications: constipationIndications:constipation buprenorphine (SUBUTEX) sublingual tablet 2 mg 2 mg, sublingual, Every 8 hours scheduled, First dose (after last modification) on Sun03/26/23 at 1400 Given 03/27/2023 5:59 AM SALES AND MERCHANDISING REPRESENTATIVE 2 mg Given 03/26/2023 10:05 PM SALES AND MERCHANDISING REPRESENTATIVE 2 mg Given 03/26/2023 2:05 PM SALES AND MERCHANDISING REPRESENTATIVE 2 mg buprenorphine (SUBUTEX) sublingual tablet 4 mg 4 mg, sublingual, Every 8 hours, First dose on Sun03/25/23 at 0000, For 3 doses, Date/Time of Last Opioid Use: 03/23/2023 at 0430 am RESCHEDULE administration time if needed., Indications: Opioid WithdrawalIndications:Opioid Withdrawal Given 03/25/2023 12:30 AM SALES AND MERCHANDISING REPRESENTATIVE 4 m g chlordiazePOXIDE (LIBRIUM) capsule 25 mg 25 mg, oral, Every 8 hours, First dose on Sun03/25/23 at 2200, For 3 doses Given 03/26/2023 5:09 AM SALES AND MERCHANDISING REPRESENTATIVE 25 mg Given 03/26/2023 12:19 AM SALES AND MERCHANDISING REPRESENTATIVE 25 mg chlordiazePOXIDE (LIBRIUM) capsule 50 mg 50 mg, oral, Every 6 hours, First dose on Sun03/23/23 at 1700, For 3 doses Given 03/24/2023 6:00 AM SALES AND MERCHANDISING REPRESENTATIVE 50 mg Given 03/23/2023 11:48 PM SALES AND MERCHANDISING REPRESENTATIVE 50 mg Given 03/23/2023 5:27 PM SALES AND MERCHANDISING REPRESENTATIVE 50 mg chlordiazePOXIDE (LIBRIUM) capsule 50 mg 50 mg, oral, Every 8 hours, First dose on Sun03/24/23 at 1400, For 4 doses Given 03/25/2023 2:10 PM SALES AND MERCHANDISING REPRESENTATIVE 50 mg Given 03/25/2023 5:18 AM SALES AND MERCHANDISING REPRESENTATIVE 50 mg Given 03/24/2023 8:52 PM SALES AND MERCHANDISING REPRESENTATIVE 50 mg diclofenac sodium (VOLTAREN) 1 % gel 4 g 4 g, topical, 3 times daily, First dose on 03/24/23 at 0030, Use dosing card to measure dose, Apply to affected area: back Given 03/27/2023 8:38 AM SALES AND MERCHANDISING REPRESENTATIVE 4 g Given 03/26/2023 8:35 PM SALES AND MERCHANDISING REPRESENTATIVE 4 g Given 03/26/2023 5:33 PM SALES AND MERCHANDISING REPRESENTATIVE 4 g dicyclomine (BENTYL) capsule 20 mg 20 mg, oral, Every 6 hours PRN, abdominal discomfort, Starting on Sun03/23/23 at 1605, Indications: Abdominal Pain with CrampsIndications:Abdominal Pain with Cramps enoxaparin (LOVENOX) syringe 40 mg 40 mg, subcutaneous, Daily (for enoxaparin), First dose on Sun03/23/23 at 2100, Indications: Deep Vein Thrombosis PreventionIndications:Deep Vein Thrombosis Prevention Given 03/23/2023 9:46 PM SALES AND MERCHANDISING REPRESENTATIVE 40 mg Left Lower Abdomen enoxaparin (LOVENOX) syringe 40 mg 40 mg, subcutaneous, Daily (for enoxaparin), First dose on Sun03/24/23 at 2100, Indications: Deep Vein Thrombosis PreventionIndications:Deep Vein Thrombosis Prevention Given 03/26/2023 8:28 PM SALES AND MERCHANDISING REPRESENTATIVE 40 mg Right Lower Abdomen folic acid (FOLVITE) tablet 1 mg 1 mg, oral, Daily, First dose on Sun03/23/23 at 1645, For 5 days, Each tablet contains 1 mg of folic acid (1.67 mg DFE)., Indications: Folate DeficiencyIndications:Folate Deficiency Given 03/27/2023 8:38 AM SALES AND MERCHANDISING REPRESENTATIVE 1 mg Given 03/26/2023 9:34 AM SALES AND MERCHANDISING REPRESENTATIVE 1 mg Given 03/25/2023 9:30 AM SALES AND MERCHANDISING REPRESENTATIVE 1 mg hydrOXYzine (VISTARIL) capsule 50 mg 50 mg, oral, Every 6 hours PRN, other, mild anxiety - patient reported scale 1-4, Starting on Sun03/23/23 at 1605, Indications: anxietyIndications:anxiety Given 03/25/2023 7:51 PM SALES AND MERCHANDISING REPRESENTATIVE 50 mg Given 03/25/2023 3:23 AM SALES AND MERCHANDISING REPRESENTATIVE 50 mg Given 03/24/2023 4:28 PM SALES AND MERCHANDISING REPRESENTATIVE 50 mg ibuprofen (ADVIL,MOTRIN) tablet 600 mg 600 mg, oral, Every 8 hours PRN, 1st line for pain, pain less than 5/10, Starting on Sun03/23/23 at 1604 Given 03/26/2023 2:09 PM SALES AND MERCHANDISING REPRESENTATIVE 600 mg Given 03/25/2023 7:47 PM SALES AND MERCHANDISING REPRESENTATIVE 600 mg Given 03/24/2023 4:28 PM SALES AND MERCHANDISING REPRESENTATIVE 600 mg loperamide (IMODIUM) capsule 2 mg 2 mg, oral, Every 8 hours PRN, diarrhea, loose stool, Starting on Sun03/23/23 at 1604, Maximum 16 mg/24 hours. loperamide (IMODIUM) capsule 4 mg 4 mg, oral, Once as needed, diarrhea, onset of diarrhea, Starting on Sun03/23/23 at 1604, For 1 dose, Maximum recommended dose 16 mg/day LORazepam (ATIVAN) injection 1 mg 1 mg, intravenous, Every 4 hours PRN, other, moderate-severe anxiety unrelieved by hydrOXYzine after 30 minutes or anxiety scale 5-10., Starting on Sun03/23/23 at 1605, May repeat one dose of 1 mg IVP after 30 minutes if ineffective (max 2 mg every 4 hours), and notify MD. For IV administration, draw up ordered admin dose/volume, then dilute with equal volume of 0.9% sodium chloride and administer total volume to patient. Do not exceed a rate of 2 mg/minute. LORazepam (ATIVAN) injection 1 mg 1 mg, intravenous, Every 1 hour PRN, other, Score between 13 and 18 on Alcohol Withdrawl Assessment, Starting on Sun03/23/23 at 2036, For 6 days, HOLD for any status indicating over sedation including the following: drifts off to sleep during conversation, minimal or no response to verbal or physical stimulation, or respiratory rate of less than 10 breaths per minute. For IV administration, draw up ordered admin dose/volume, then dilute with equal volume of 0.9% sodium chloride and administer total volume to patient. Do not exceed a rate of 2 mg/minute., Indications: Alcohol Withdrawal Assessment Scale scoreIndications:Alcohol Withdrawal Assessment Scale score LORazepam (ATIVAN) injection 1 mg 1 mg, intramuscular, Every 1 hour PRN, other, Score between 13 and 18 on Alcohol Withdrawl Assessment, Starting on Sun03/23/23 at 2035, For 6 days, Administer IM if unable to provide IV Push. HOLD for any status indicating over sedation including the following: drifts off to sleep during conversation, minimal or no response to verbal or physical stimulation, or respiratory rate less than10 breaths per minute. For IV administration, draw up ordered admin dose/volume, then dilute with equal volume of 0.9% sodium chloride and administer total volume to patient. Do not exceed a rate of 2 mg/minute., Indications: Alcohol Withdrawal Assessment Scale scoreIndications:Alcohol Withdrawal Assessment Scale score LORazepam (ATIVAN) injection 2 mg 2 mg, intravenous, Once as needed, seizures, Starting on Sun03/23/23 at 1604, For 1 dose, Administer STAT and notify MD. For IV administration, draw up ordered admin dose/volume, then dilute with equal volume of 0.9% sodium chloride and administer total volume to patient. Do not exceed a rate of 2 mg/minute. LORazepam (ATIVAN) injection 2 mg 2 mg, intravenous, Every 1 hour PRN, other, Score greater than 18 on Alcohol Withdrawl Assessmen, Starting on Sun03/23/23 at 2035, For 6 days, HOLD for any status indicating over sedation including the following: drifts off to sleep during conversation, minimal or no response to verbal or physical stimulation, or respiratory rate less than 10 breaths per minute. For IV administration, draw up ordered admin dose/volume, then dilute with equal volume of 0.9% sodium chloride and administer total volume to patient. Do not exceed a rate of 2 mg/minute., Indications: Alcohol Withdrawal Assessment Scale scoreIndications:Alcohol Withdrawal Assessment Scale score LORazepam (ATIVAN) injection 2 mg 2 mg, intramuscular, Every 1 hour PRN, other, Score greater than 18 on Alcohol Withdrawl Assessment, Starting on Sun03/23/23 at 2035, For 6 days, Administer IM if unable to provide IV Push.HOLD for any status indicating over sedation including the following: drifts off to sleep during conversation, minimal or no response to verbal or physical stimulation, or respiratory rate less than 10 breaths per minute. For IV administration, draw up ordered admin dose/volume, then dilute with equal volume of 0.9% sodium chloride and administer total volume to patient. Do not exceed a rate of 2 mg/minute., Indications: Alcohol Withdrawal Assessment Scale scoreIndications:Alcohol Withdrawal Assessment Scale score LORazepam (ATIVAN) tablet 1 mg 1 mg, oral, Every 4 hours PRN, other, Score between 3 and 5 on Alcohol Withdrawl Assessment, Starting on Sun03/23/23 at 2035, For 6 days, HOLD for any status indicating over sedation including the following: drifts off to sleep during conversation, minimal or no response to verbal or physical stimulation, or respiratory rate less than 10 breaths per minute., Indications: Alcohol Withdrawal Assessment Scale scoreIndications:Alcohol Withdrawal Assessment Scale score Given 03/25/2023 3:23 AM SALES AND MERCHANDISING REPRESENTATIVE 1 mg Given 03/24/2023 8:53 PM SALES AND MERCHANDISING REPRESENTATIVE 1 mg LORazepam (ATIVAN) tablet 1 mg 1 mg, oral, Every 2 hours PRN, other, Score between 6 and 12 on Alcohol Withdrawl Assessment, Starting on Sun03/23/23 at 2035, For 6 days, HOLD for any status indicating over sedation including the following: drifts off to sleep during conversation, minimal or no response to verbal or physical stimulation, or respiratory rate less than 10 breaths per minute., Indications: Alcohol Withdrawal Assessment Scale scoreIndications:Alcohol Withdrawal Assessment Scale score methocarbamoL (ROBAXIN) tablet 750 mg 750 mg, oral, Every 6 hours PRN, muscle spasms, muscle aches, Starting on Sun03/23/23 at 1605 Given 03/25/2023 7:47 PM SALES AND MERCHANDISING REPRESENTATIVE 750 mg Given 03/24/2023 8:53 PM SALES AND MERCHANDISING REPRESENTATIVE 750 mg Given 03/24/2023 6:04 AM SALES AND MERCHANDISING REPRESENTATIVE 750 mg metoprolol XL (TOPROL-XL) extended release tablet 25 mg 25 mg, oral, Daily, First dose on Sun03/24/23 at 0900, Tablets that are scored may be split, but do not crush, chew, dissolve, open or otherwise manipulate tablet/capsule. Given 03/27/2023 8:38 AM SALES AND MERCHANDISING REPRESENTATIVE 25 m g Given 03/25/2023 9:30 AM SALES AND MERCHANDISING REPRESENTATIVE 25 mg Given 03/24/2023 10:06 AM SALES AND MERCHANDISING REPRESENTATIVE 25 mg multivit ljgmlswv-yldk-CL-calcium (THERA-M) tablet 1 tablet 1 tablet, oral, Daily, First dose on Sun03/23/23 at 1645, Indications: Vitamin Deficiency PreventionIndications:Vitamin Deficiency Prevention Given 03/27/2023 8:38 AM SALES AND MERCHANDISING REPRESENTATIVE 1 tablet Given 03/26/2023 9:34 AM SALES AND MERCHANDISING REPRESENTATIVE 1 tablet Given 03/25/2023 9:30 AM SALES AND MERCHANDISING REPRESENTATIVE 1 tablet nicotine (NICODERM CQ) 14 mg patch 24 hour 1 patch 1 patch, transdermal, Administer over 24 Hours, Daily, First dose on 03/24/23 at 0030, Apply a new patch every 24 hours to a clean, dry, hairless site on the upper arm or hip. Rotate site. Medication Applied 03/27/2023 8:38 AM SALES AND MERCHANDISING REPRESENTATIVE 1 patch Right Arm Medication Applied 03/26/2023 9:39 AM SALES AND MERCHANDISING REPRESENTATIVE 1 patch Left Arm Medication Applied 03/25/2023 12:05 PM SALES AND MERCHANDISING REPRESENTATIVE 1 patch Left Arm ondansetron (ZOFRAN) injection 4 mg 4 mg, intravenous, Administer over 2 Minutes, Every 6 hours PRN, nausea, vomiting, if not tolerating PO, Starting on Sun03/23/23 at 1604, Indications: Nausea and VomitingIndications:Nausea and Vomiting ondansetron ODT (ZOFRAN-ODT) disintegrating tablet 4 mg 4 mg, oral, Every 6 hours PRN, nausea, vomiting, Starting on Sun03/23/23 at 1604, Indications: Nausea and VomitingIndications:Nausea and Vomiting senna (SENOKOT) tablet 2 tablet 2 tablet (17.2 mg), oral, Nightly PRN, constipation, Starting on Sun03/23/23 at 1604 spironolactone (ALDACTONE) tablet 25 mg 25 mg, oral, Daily, First dose on 03/24/23 at 0900 Given 03/27/2023 8:38 AM SALES AND MERCHANDISING REPRESENTATIVE 25 mg Given 03/25/2023 9:30 AM SALES AND MERCHANDISING REPRESENTATIVE 25 mg Given 03/24/2023 10:07 AM SALES AND MERCHANDISING REPRESENTATIVE 25 mg thiamine (VITAMIN B1) tablet 100 mg 100 mg, oral, Daily, First dose on 03/23/23 at 1645, For 5 days, Indications: Thiamine DeficiencyIndications:Thiamine Deficiency Given 03/27/2023 8:38 AM SALES AND MERCHANDISING REPRESENTATIVE 100 mg Given 03/26/2023 9:34 AM SALES AND MERCHANDISING REPRESENTATIVE 100 mg Given 03/25/2023 9:31 AM SALES AND MERCHANDISING REPRESENTATIVE 100 mg topiramate (TOPAMAX) tablet 200 mg 200 mg, oral, Daily, First dose (after last modification) on Sun03/24/23 at 0900 Given 03/27/2023 8:38 AM SALES AND MERCHANDISING REPRESENTATIVE 200 mg Given 03/26/2023 9:34 AM SALES AND MERCHANDISING REPRESENTATIVE 200 mg Given 03/25/2023 9:31 AM SALES AND MERCHANDISING REPRESENTATIVE 200 mg documented in this encounter Discontinued Medications Medication Sig Discontinue Reason Start Date End Da te tiZANidine (ZANAFLEX) 4 mg tabletIndications:Musc le Spasm Take 1 tablet (4 mg total) by mouth every 6 (six) hours as needed for muscle spasms Therapy completed 08/03/2022 03/23/2023 furosemide (LASIX) 20 mg tablet Take 1 tablet (20 mg total) by mouth daily Alternate therapy 09/26/2022 03/23/2023 HYDROcodone-acetaminop hen (NORCO) 7.5-325 mg per tablet Take 1 tablet by mouth every 6 (six) hours as needed for pain Stop Taking at Discharge 02/25/2023 03/27/2023 buprenorphine (SUBUTEX) 2 mg tablet, sublingual Place 1 tablet (2 mg total) under the tongue every 8 (eight) hours for 5 days Stop Taking at Discharge 03/27/2023 03/27/2023 documented as of this encounter Historical Medications * This list may reflect changes made after this encounter. spironolactone (ALDACTONE) 25 mg tablet Take 1 tablet (25 mg total) by mouth daily 12/25/2023 HYDROcodone-aceta minophen (NORCO) 7.5-325 mg per tablet Take 1 tablet by mouth every 6 (six) hours as needed for pain 02/25/2023 03/27/2023 added in this encounter Active and Recently Administered Medications Times are shown in SALES AND MERCHANDISING REPRESENTATIVE. Scheduled Medication Order 03/25/2023 03/26/2023 03/27/2023 amitriptyline (ELAVIL) tablet 37.5 mg 37.5 mg, oral, Nightly, First dose on Sun03/23/23 at 2115 2221 (Not Given - Provider: Peyton Harvey RN - Reason: Other - Comment: pt sleeping) 2026 (Given - Provider: Mary Segura, RUTHY) buprenorphine (SUBUTEX) sublingual tablet 2 mg 2 mg, sublingual, Every 8 hours scheduled, First dose (after last modification) on 03/26/23 at 1400 1405 (Given - Provider: Katie Arias, RN)2205 (Given - Provider: Mary Segura, RN) 0559 (Given - Provider: Mary Segura, RN) buprenorphine (SUBUTEX) sublingual tablet 4 mg (CANCELED)(Linked Group 1) 4 mg, sublingual, Every 8 hours, First dose on 03/25/23 at 0000, For 3 doses, Date/Time of Last Opioid Use: 03/23/2023 at 0430 am RESCHEDULE administration time if needed., Indications: Opioid Withdrawal 0030 (Given - Provider: Peyton Harvey RN)0928 (Not Given - Provider: Leatha Correa, RUTHY - Reason: Patient/family refused - Comment: Dr. nettles. Pt. drowsy.) chlordiazePOXIDE (LIBRIUM) capsule 25 mg (CANCELED)(Linked Group 2) 25 mg, oral, Every 8 hours, First dose on 03/25/23 at 2200, For 3 doses 0019 (Given - Provider: Peyton Harvey RN - Comment: pt was originally sleeping, now awake.)0509 (Given - Provider: Peyton Harvey RN) chlordiazePOXIDE (LIBRIUM) capsule 50 mg (COMPLETED)(Linked Group 2) 50 mg, oral, Every 8 hours, First dose on 03/24/23 at 1400, For 4 doses 0518 (Given - Provider: Peyton Harvey RN)1410 (Given - Provider: Leatha Correa RN) diclofenac sodium (VOLTAREN) 1 % gel 4 g 4 g, topical, 3 times daily, First dose on 03/24/23 at 0030, Use dosing card to measure dose, Apply to affected area: back 1206 (Not Given - Provider: Leatha Correa RN - Reason: Patient/family refused)1700 (Given - Provider: Ynes Vogel RN)195 (Given - Provider: Peyton Harvey, RUTHY) 0940 (Given - Provider: Katie Arias, RUTHY)173 (Given - Provider: Katie Arias, RUTHY)2034 (Given - Provider: Mary Segura, RUTHY) 0838 (Given - Provider: Tala Ponce, RUTHY) enoxaparin (LOVENOX) syringe 40 mg 40 mg, subcutaneous, Daily (for enoxaparin), First dose on Sun03/24/23 at 2100, Indications: Deep Vein Thrombosis Prevention 2221 (Not Given - Provider: Peyton Harvey RN - Reason: Patient/family refused) 2027 (Given - Provider: Mary Segura, RUTHY) folic acid (FOLVITE) tablet 1 mg (COMPLETED) 1 mg, oral, Daily, First dose on Sun03/23/23 at 1645, For 5 days, Each tablet contains 1 mg of folic acid (1.67 mg DFE)., Indications: Folate Deficiency 0930 (Given - Provider: Leatha Correa RN) 0934 (Given - Provider: Katie Arias RN) 0838 (Given - Provider: Tala Ponce, RUTHY) metoprolol XL (TOPROL-XL) extended release tablet 25 mg 25 mg, oral, Daily, First dose on Sun03/24/23 at 0900, Tablets that are scored may be split, but do not crush, chew, dissolve, open or otherwise manipulate tablet/capsule. 0930 (Given - Provider: Leatha Correa RN) 0934 (Not Given - Provider: Katie Arias RN - Reason: Contraindicated) 0838 (Given - Provider: Tala Ponce, RUTHY) multivit tleudrfo-dqjr-DC-calcium (THERA-M) tablet 1 tablet 1 tablet, oral, Daily, First dose on Sun03/23/23 at 1645, Indications: Vitamin Deficiency Prevention 0930 (Given - Provider: Leatha Correa RN) 0934 (Given - Provider: Katie Arias RN) 0838 (Given - Provider: Tala Ponce, RUTHY) nicotine (NICODERM CQ) 14 mg patch 24 hour 1 patch 1 patch, transdermal, Administer over 24 Hours, Daily, First dose on 03/24/23 at 0030, Apply a new patch every 24 hours to a clean, dry, hairless site on the upper arm or hip. Rotate site. 0930 (Medication Removed - Provider: Leatha Correa RN)1205 (Medication Applied - Provider: Leatha Correa RN) 0938 (Medication Removed - Provider: Katie Arias RN)0939 (Medication Applied - Provider: Katie Arias RN) 0837 (Medication Removed - Provider: Tala Ponce, RUTHY)0838 (Medication Applied - Provider: Tala Ponce RN)1258 (Due: Medication Removed - Provider: Automatic Discharge Provider - Comment: Time automatically adjusted from order being discontinued) spironolactone (ALDACTONE) tablet 25 mg 25 mg, oral, Daily, First dose on 03/24/23 at 0900 0930 (Given - Provider: Leatha Correa RN) 0934 (Not Given - Provider: Katie Arias RN - Reason: Contraindicated) 0838 (Given - Provider: Tala Ponce, RUTHY) thiamine (VITAMIN B1) tablet 100 mg (COMPLETED) 100 mg, oral, Daily, First dose on Sun03/23/23 at 1645, For 5 days, Indications: Thiamine Deficiency 0931 (Given - Provider: Leatha Correa RN) 0934 (Given - Provider: Katie Arias RN) 0838 (Given - Provider: Tala Ponce, RUTHY) topiramate (TOPAMAX) tablet 200 mg 200 mg, oral, Daily, First dose (after last modification) on 03/24/23 at 0900 0931 (Given - Provider: Leatha Correa RN) 0934 (Given - Provider: Katie Arias RN) 0838 (Given - Provider: Tala Ponce RN) PRN Medication Order 03/25/2023 03/26/2023 03/27/2023 acetaminophen (TYLENOL) tablet 500 mg 500 mg, oral, Every 6 hours PRN, fever, temperature greater than 38 C (100.4 F), Starting on Sun03/23/23 at 2037 albuterol 2.5 mg /3 mL (0.083 %) nebulizer solution 2.5 mg 2.5 mg, nebulization, Every 4 hours PRN (registered respiratory therapist), wheezing, shortness of breath, Starting on Sun03/23/23 at 204, This therapy was substituted for Albuterol Inhaler per protocol. aluminum-magnesium hydroxide-simethicone (MAALOX) 40-40-4 mg/mL oral suspension 30 mL 30 mL, oral, Every 6 hours PRN, dyspepsia, Starting on Sun03/23/23 at 1604 bisacodyL (DULCOLAX) suppository 10 mg 10 mg, rectal, Daily PRN, other, no BM in 48 hours, Starting on Sun03/23/23 at 1604, Indications: constipation dicyclomine (BENTYL) capsule 20 mg 20 mg, oral, Every 6 hours PRN, abdominal discomfort, Starting on Sun03/23/23 at 1605, Indications: Abdominal Pain with Cramps hydrOXYzine (VISTARIL) capsule 50 mg 50 mg, oral, Every 6 hours PRN, other, mild anxiety - patient reported scale 1-4, Starting on Sun03/23/23 at 1605, Indications: anxiety 0323 (Given - Provider: Peyton Harvey RN)1951 (Given - Provider: Peyton Harvye RN) ibuprofen (ADVIL,MOTRIN) tablet 600 mg 600 mg, oral, Every 8 hours PRN, 1st line for pain, pain less than 5/10, Starting on Sun03/23/23 at 1604 1947 (Given - Provider: Peyton Harvey RN - Comment: back) 1409 (Given - Provider: Katie Arias RN) loperamide (IMODIUM) capsule 2 mg 2 mg, oral, Every 8 hours PRN, diarrhea, loose stool, Starting on Sun03/23/23 at 1604, Maximum 16 mg/24 hours. loperamide (IMODIUM) capsule 4 mg 4 mg, oral, Once as needed, diarrhea, onset of diarrhea, Starting on Sun03/23/23 at 1604, For 1 dose, Maximum recommended dose 16 mg/day LORazepam (ATIVAN) injection 1 mg 1 mg, intravenous, Every 4 hours PRN, other, moderate-severe anxiety unrelieved by hydrOXYzine after 30 minutes or anxiety scale 5-10., Starting on Sun03/23/23 at 1605, May repeat one dose of 1 mg IVP after 30 minutes if ineffective (max 2 mg every 4 hours), and notify MD. For IV administration, draw up ordered admin dose/volume, then dilute with equal volume of 0.9% sodium chloride and administer total volume to patient. Do not exceed a rate of 2 mg/minute. LORazepam (ATIVAN) injection 1 mg(Linked Group 3) 1 mg, intravenous, Every 1 hour PRN, other, Score between 13 and 18 on Alcohol Withdrawl Assessment, Starting on Sun03/23/23 at 2035, For 6 days, HOLD for any status indicating over sedation including the following: drifts off to sleep during conversation, minimal or no response to verbal or physical stimulation, or respiratory rate of less than 10 breaths per minute. For IV administration, draw up ordered admin dose/volume, then dilute with equal volume of 0.9% sodium chloride and administer total volume to patient. Do not exceed a rate of 2 mg/minute., Indications: Alcohol Withdrawal Assessment Scale score 0323 (See Alternative - Provider: Peyton Harvey RN) LORazepam (ATIVAN) injection 1 mg(Linked Group 3) 1 mg, intramuscular, Every 1 hour PRN, other, Score between 13 and 18 on Alcohol Withdrawl Assessment, Starting on Sun03/23/23 at 2035, For 6 days, Administer IM if unable to provide IV Push. HOLD for any status indicating over sedation including the following: drifts off to sleep during conversation, minimal or no response to verbal or physical stimulation, or respiratory rate less than10 breaths per minute. For IV administration, draw up ordered admin dose/volume, then dilute with equal volume of 0.9% sodium chloride and administer total volume to patient. Do not exceed a rate of 2 mg/minute., Indications: Alcohol Withdrawal Assessment Scale score 0323 (See Alternative - Provider: Peyton Harvey RN) LORazepam (ATIVAN) injection 2 mg 2 mg, intravenous, Once as needed, seizures, Starting on Sun03/23/23 at 1604, For 1 dose, Administer STAT and notify MD. For IV administration, draw up ordered admin dose/volume, then dilute with equal volume of 0.9% sodium chloride and administer total volume to patient. Do not exceed a rate of 2 mg/minute. LORazepam (ATIVAN) injection 2 mg(Linked Group 3) 2 mg, intravenous, Every 1 hour PRN, other, Score greater than 18 on Alcohol Withdrawl Assessmen, Starting on Sun03/23/23 at 2035, For 6 days, HOLD for any status indicating over sedation including the following: drifts off to sleep during conversation, minimal or no response to verbal or physical stimulation, or respiratory rate less than 10 breaths per minute. For IV administration, draw up ordered admin dose/volume, then dilute with equal volume of 0.9% sodium chloride and administer total volume to patient. Do not exceed a rate of 2 mg/minute., Indications: Alcohol Withdrawal Assessment Scale score 0323 (See Alternative - Provider: Peyton Harvey RN) LORazepam (ATIVAN) injection 2 mg(Linked Group 3) 2 mg, intramuscular, Every 1 hour PRN, other, Score greater than 18 on Alcohol Withdrawl Assessment, Starting on Sun03/23/23 at 2035, For 6 days, Administer IM if unable to provide IV Push.HOLD for any status indicating over sedation including the following: drifts off to sleep during conversation, minimal or no response to verbal or physical stimulation, or respiratory rate less than 10 breaths per minute. For IV administration, draw up ordered admin dose/volume, then dilute with equal volume of 0.9% sodium chloride and administer total volume to patient. Do not exceed a rate of 2 mg/minute., Indications: Alcohol Withdrawal Assessment Scale score 0323 (See Alternative - Provider: Peyton Harvey RN) LORazepam (ATIVAN) tablet 1 mg(Linked Group 3) 1 mg, oral, Every 4 hours PRN, other, Score between 3 and 5 on Alcohol Withdrawl Assessment, Starting on Sun03/23/23 at 2035, For 6 days, HOLD for any status indicating over sedation including the following: drifts off to sleep during conversation, minimal or no response to verbal or physical stimulation, or respiratory rate less than 10 breaths per minute., Indications: Alcohol Withdrawal Assessment Scale score 0323 (Given - Provider: Peyton Harvey, RN) LORazepam (ATIVAN) tablet 1 mg(Linked Group 3) 1 mg, oral, Every 2 hours PRN, other, Score between 6 and 12 on Alcohol Withdrawl Assessment, Starting on Sun03/23/23 at 2036, For 6 days, HOLD for any status indicating over sedation including the following: drifts off to sleep during conversation, minimal or no response to verbal or physical stimulation, or respiratory rate less than 10 breaths per minute., Indications: Alcohol Withdrawal Assessment Scale score 0323 (See Alternative - Provider: Peyton Harvey RN) methocarbamoL (ROBAXIN) tablet 750 mg 750 mg, oral, Every 6 hours PRN, muscle spasms, muscle aches, Starting on Sun03/23/23 at 1605 1947 (Given - Provider: Peyton Harvey RN) ondansetron (ZOFRAN) injection 4 mg(Linked Group 4) 4 mg, intravenous, Administer over 2 Minutes, Every 6 hours PRN, nausea, vomiting, if not tolerating PO, Starting on Sun03/23/23 at 1604, Indications: Nausea and Vomiting ondansetron ODT (ZOFRAN-ODT) disintegrating tablet 4 mg(Linked Group 4) 4 mg, oral, Every 6 hours PRN, nausea, vomiting, Starting on Sun03/23/23 at 1604, Indications: Nausea and Vomiting senna (SENOKOT) tablet 2 tablet 2 tablet (17.2 mg), oral, Nightly PRN, constipation, Starting on Sun03/23/23 at 1604 Linked Groups Order Group 1: buprenorphine (SUBUTEX) sublingual tablet 4 mg (CANCELED)Jump to med 4 mg, sublingual, Every 8 hours, First dose on 03/25/23 at 0000, For 3 doses, Date/Time of Last Opioid Use: 03/23/2023 at 0430 am RESCHEDULE administration time if needed., Indications: Opioid Withdrawal Followed by buprenorphine (SUBUTEX) sublingual tablet 2 mg (CANCELED) 2 mg, sublingual, Every 8 hours, First dose on 03/26/23 at 0000, For 2 doses, Indications: Opioid Withdrawal Followed by buprenorphine (SUBUTEX) sublingual tablet 2 mg (CANCELED) 2 mg, sublingual, Every 12 hours, First dose on 03/26/23 at 1600, For 3 doses, Indications: Opioid Withdrawal Group 2: chlordiazePOXIDE (LIBRIUM) capsule 50 mg (COMPLETED) 50 mg, oral, Every 6 hours, First dose on Sun03/23/23 at 1700, For 3 doses Followed by chlordiazePOXIDE (LIBRIUM) capsule 50 mg (COMPLETED)Jump to med 50 mg, oral, Every 8 hours, First dose on Sun03/24/23 at 1400, For 4 doses Followed by chlordiazePOXIDE (LIBRIUM) capsule 25 mg (CANCELED)Jump to med 25 mg, oral, Every 8 hours, First dose on Sun03/25/23 at 2200, For 3 doses Group 3: LORazepam (ATIVAN) tablet 1 mgJump to med 1 mg, oral, Every 4 hours PRN, other, Score between 3 and 5 on Alcohol Withdrawl Assessment, Starting on Sun03/23/23 at 2035, For 6 days, HOLD for any status indicating over sedation including the following: drifts off to sleep during conversation, minimal or no response to verbal or physical stimulation, or respiratory rate less than 10 breaths per minute., Indications: Alcohol Withdrawal Assessment Scale score Or LORazepam (ATIVAN) tablet 1 mgJump to med 1 mg, oral, Every 2 hours PRN, other, Score between 6 and 12 on Alcohol Withdrawl Assessment, Starting on Sun03/23/23 at 2035, For 6 days, HOLD for any status indicating over sedation including the following: drifts off to sleep during conversation, minimal or no response to verbal or physical stimulation, or respiratory rate less than 10 breaths per minute., Indications: Alcohol Withdrawal Assessment Scale score Or LORazepam (ATIVAN) injection 1 mgJump to med 1 mg, intravenous, Every 1 hour PRN, other, Score between 13 and 18 on Alcohol Withdrawl Assessment, Starting on Sun03/23/23 at 2035, For 6 days, HOLD for any status indicating over sedation including the following: drifts off to sleep during conversation, minimal or no response to verbal or physical stimulation, or respiratory rate of less than 10 breaths per minute. For IV administration, draw up ordered admin dose/volume, then dilute with equal volume of 0.9% sodium chloride and administer total volume to patient. Do not exceed a rate of 2 mg/minute., Indications: Alcohol Withdrawal Assessment Scale score Or LORazepam (ATIVAN) injection 1 mgJump to med 1 mg, intramuscular, Every 1 hour PRN, other, Score between 13 and 18 on Alcohol Withdrawl Assessment, Starting on Sun03/23/23 at 2035, For 6 days, Administer IM if unable to provide IV Push. HOLD for any status indicating over sedation including the following: drifts off to sleep during conversation, minimal or no response to verbal or physical stimulation, or respiratory rate less than10 breaths per minute. For IV administration, draw up ordered admin dose/volume, then dilute with equal volume of 0.9% sodium chloride and administer total volume to patient. Do not exceed a rate of 2 mg/minute., Indications: Alcohol Withdrawal Assessment Scale score Or LORazepam (ATIVAN) injection 2 mgJump to med 2 mg, intravenous, Every 1 hour PRN, other, Score greater than 18 on Alcohol Withdrawl Assessmen, Starting on Sun03/23/23 at 2035, For 6 days, HOLD for any status indicating over sedation including the following: drifts off to sleep during conversation, minimal or no response to verbal or physical stimulation, or respiratory rate less than 10 breaths per minute. For IV administration, draw up ordered admin dose/volume, then dilute with equal volume of 0.9% sodium chloride and administer total volume to patient. Do not exceed a rate of 2 mg/minute., Indications: Alcohol Withdrawal Assessment Scale score Or LORazepam (ATIVAN) injection 2 mgJump to med 2 mg, intramuscular, Every 1 hour PRN, other, Score greater than 18 on Alcohol Withdrawl Assessment, Starting on Sun03/23/23 at 2035, For 6 days, Administer IM if unable to provide IV Push.HOLD for any status indicating over sedation including the following: drifts off to sleep during conversation, minimal or no response to verbal or physical stimulation, or respiratory rate less than 10 breaths per minute. For IV administration, draw up ordered admin dose/volume, then dilute with equal volume of 0.9% sodium chloride and administer total volume to patient. Do not exceed a rate of 2 mg/minute., Indications: Alcohol Withdrawal Assessment Scale score Group 4: ondansetron ODT (ZOFRAN-ODT) disintegrating tablet 4 mgJump to med 4 mg, oral, Every 6 hours PRN, nausea, vomiting, Starting on Sun03/23/23 at 1604, Indications: Nausea and Vomiting Or ondansetron (ZOFRAN) injection 4 mgJump to med 4 mg, intravenous, Administer over 2 Minutes, Every 6 hours PRN, nausea, vomiting, if not tolerating PO, Starting on Sun03/23/23 at 1604, Indications: Nausea and Vomiting documented in this encounter Orders Medications Ordered That Vu ht Not Have Been Administered Count Last Ordered Date First Ordered Date buprenorphine (SUBUTEX) subl ingual tablet 2 mg 3 03/26/2023 03/24/2023 acetaminophen (TYLENOL) tablet 500 mg 1 11/2022 albuterol 2.5 mg /3 mL (0.08 3 %) nebulizer solution 2.5 mg 1 03/23/2023 albuterol HFA (PROVENTIL HFA ,VENTOLIN HFA,PROAIR HFA) 90 mcg/actuation inhaler 2 puff 1 03/23/2023 aluminum-magnesium hydroxide -simethicone (MAALOX) 40-40-4 mg/mL oral suspension 30 mL 1 03/23/2023 bisacodyL (DULCOLAX) suppository 10 mg 1 dicyclomine (BENTYL) capsule 20 mg 1 2022 HYDROcodone-acetaminophen (N ORCO) 7.5-325 mg per tablet 1 tablet 1 03/23/2023 loperamide (IMODIUM) capsule 2 mg 1 023 loperamide (IMODIUM) capsule 4 mg 1 023 LORazepam (ATIVAN) injection 1 mg 3 023 LORazepam (ATIVAN) injection 2 mg 3 023 LORazepam (ATIVAN) tablet 1 mg 1 03/23/2023 ondansetron (ZOFRAN) injection 4 mg 1 03/23 ondansetron ODT (ZOFRAN-ODT) disintegrating tablet 4 mg 1 03/23/2023 senna (SENOKOT) tablet 2 tablet 1 topiramate (TOPAMAX) tablet 100 mg 1 2022 Diet Count Last Ordered Date First Orde red Date ADULT DISCHARGE DIET 1 03/27/2023 Nursing Count Last Ordered Date First Orde red Date DISCHARGE ACTIVITY 1 03/27/2023 WEIGH PATIENT 1 03/24/2023 Admission Count Last Ordered Date First Orde red Date ADMIT TO INPATIENT 1 03/23/2023 Discharge Count Last Ordered Date First Orde red Date DISCHARGE PATIENT 1 03/27/2023 documented in this encounter Care Teams [employer] Relationship Specialty Start Date End Date Chris Bean MD [address] [facility] [address] [place] [address] [place] [id number] PCP - General Family Medicine 09/08/22 documented as of this encounter
--- OUTSIDE RECORDS SUMMARY | 2024-04-05 02:13 | XMS_ITS | Encounter Summary ---
Author Organization [facility] Healthcare Address [address] [place] [address] Care Team Providers Care Biomedical Scientist Name Role Phone Chris Bean MD Primary Care Provider [phone] Reason for Visit * Reason Comments 6 month follow up Migraine Anxiety/Depression Encounter Details Date Type Department Care Team (Late st Contact Info) Description 03/28/2023 10:30 AM DIP TUBE ASSEMBLER MACHINE Office Visit [facility] Family Medicine at [address] [phone] Chris Bean MD [address] [place] [id number] Generalized anxiety disorder (Primary Dx) Social History Tobacco Use Types Packs/Day Years [...] Sign Reading Time Taken Comments Blood Pressure 90/58 03/28/2023 10:47 AM DIP TUBE ASSEMBLER MACHINE Pulse 96 03/28/2023 10:47 AM DIP TUBE ASSEMBLER MACHINE Temperature 36.2 ??C (97.2 ??F) 03/28/2023 10:[address] Respiratory Rate 18 03/28/2023 10:47 AM DIP TUBE ASSEMBLER MACHINE Oxygen Saturation 96% 03/28/2023 10:47 AM DIP TUBE ASSEMBLER MACHINE Inhaled Oxygen Concentration - - Weight 62.9 kg (138 lb 9.6 oz) 03/28/2023 10:47 AM DIP TUBE ASSEMBLER MACHINE Height 157.5 cm (5' 2 ) 03/28/2023 10:47 AM DIP TUBE ASSEMBLER MACHINE Body Mass Index 25.35 03/28/2023 10:47 AM DIP TUBE ASSEMBLER MACHINE documented in this encounter Ordered Prescriptions Prescription Sig Dispense Quantity Refills Last Filled Start Date End Date DULoxetine DR (CYMBALTA) 30 mg capsuleIndications :Generalized anxiety disorder Take 1 capsule (30 mg total) by mouth 2 (two) times a day 60 capsule 2 03/28/2023 4 documented in this encounter Progress Notes * Chris Bean MD - 03/28/2023 10:30 AM CST Images from the original note were not included. Visit date: 03/28/2023 Patient ID: Gerardo Whitt is a 48 y.o. female. Chief Complaint. Chief Complaint Patient presents with 6 month follow up Migraine Anxiety/Depression HPI. Patient is a 48 y.o. female Migraine Pertinent negatives include no abdominal pain, coughing or fever. Following Failed Back surgery. Recently been for Hydrocodone withdrawal at [facility]. On Subaxon. Patient follows Pain mgmt at [facility]. 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 Past Medical History: Diagnosis Date Allergy-induced asthma Anxiety Current smoker Diastolic heart failure, NYHA class 1 (CMS/HCC) ([facility]) Hypertension Intervertebral disc disorder with radiculopathy of lumbar region Migraines Past Surgical History: Procedure Laterality Date BACK SURGERY 07/2022 SECTION HYSTERECTOMY MICRODISCECTOMY LUMBAR 2014 L5-S1 TONSILLECTOMY/ADENOIDECTOMY No Known Allergies Social History Tobacco Use Smoking status: Every Day Packs/day: .25 Types: Cigarettes Start date: 05/21/2000 Smokeless tobacco: Never Substance and Sexual Activity Drug use: Not Currently Sexual activity: Defer Alcohol Use: Not At Risk (03/28/2023) AUDIT-C Frequency of Alcohol Consumption: Never Average Number of Drinks: Patient does not drink Frequency of Binge Drinking: Never Family History Problem Relation Age of Onset Diabetes Mother Dementia Father Current Medications: Outpatient Encounter Medications as of 03/28/2023 Medication Sig Dispense Refill albuterol HFA (ProAir HFA) 90 mcg/actuation inhaler Inhale 2 puffs every 4 (four) hours as needed for wheezing or shortness of breath 3 each 4 amitriptyline (ELAVIL) 25 mg tablet TAKE 1 AND 1/2 TABLETS BY MOUTH EVERY NIGHT AT BEDTIME 45 tablet 3 buprenorphine-naloxone (SUBOXONE) 8-2 mg per SL tablet Place 1 tablet under the tongue daily for 5 days 5 tablet 0 diclofenac sodium (VOLTAREN) 1 % gel Apply 4 g topically 3 (three) times a day 30 g 1 metoprolol XL (TOPROL-XL) 25 mg extended release tablet Take 1 tablet (25 mg total) by mouth daily 90 tablet 1 nystatin 100,000 unit/mL suspension Take 5 mL (500,000 Units total) by mouth 4 (four) times a day Swish in mouth and spit out. 280 mL 0 spironolactone (ALDACTONE) 25 mg tablet Take 1 tablet (25 mg total) by mouth daily topiramate (TOPAMAX) 100 mg tablet Take 1 tablet (100 mg total) by mouth 2 (two) times a day [address] (CYMBALTA) 30 mg capsule Take 1 capsule (30 mg total) by mouth 2 (two) times a day 60capsule 2 [DISCONTINUED] buprenorphine (SUBUTEX) 2 mg tablet, sublingual Place 1 tablet (2 mg total) under the tongue every 8 (eight) hours for 5 days 15 tablet 0 [DISCONTINUED] HYDROcodone-acetaminophen (NORCO) 7.5-325 mg per tablet Take 1 tablet by mouth every6 (six) hours as needed for pain [] folic acid (FOLVITE) tablet 1 mg [] thiamine (VITAMIN B1) tablet 100 mg [DISCONTINUED] acetaminophen (TYLENOL) tablet 500 mg [DISCONTINUED] albuterol 2.5 mg /3 mL (0.083 %) nebulizer solution 2.5 mg [DISCONTINUED] aluminum-magnesium hydroxide-simethicone (MAALOX) 40-40-4 mg/mL oral suspension 30 mL [DISCONTINUED] amitriptyline (ELAVIL) tablet 37.5 mg [DISCONTINUED] bisacodyL (DULCOLAX) suppository 10 mg [DISCONTINUED] buprenorphine (SUBUTEX) sublingual tablet 2 mg [DISCONTINUED] diclofenac sodium (VOLTAREN) 1 % gel 4 g [DISCONTINUED] dicyclomine (BENTYL) capsule 20 mg [DISCONTINUED] enoxaparin (LOVENOX) syringe 40 mg [DISCONTINUED] hydrOXYzine (VISTARIL) capsule 50 mg [DISCONTINUED] ibuprofen (ADVIL,MOTRIN) tablet 600 mg [DISCONTINUED] loperamide (IMODIUM) capsule 2 mg [DISCONTINUED] loperamide (IMODIUM) capsule 4 mg [DISCONTINUED] LORazepam (ATIVAN) injection 1 mg [DISCONTINUED] LORazepam (ATIVAN) injection 1 mg [DISCONTINUED] LORazepam (ATIVAN) injection 1 mg [DISCONTINUED] LORazepam (ATIVAN) injection 2 mg [DISCONTINUED] LORazepam (ATIVAN) injection 2 mg [DISCONTINUED] LORazepam (ATIVAN) injection 2 mg [DISCONTINUED] LORazepam (ATIVAN) tablet 1 mg [DISCONTINUED] LORazepam (ATIVAN) tablet 1 mg [DISCONTINUED] methocarbamoL (ROBAXIN) tablet 750 mg [DISCONTINUED] metoprolol XL (TOPROL-XL) extended release tablet 25 mg [DISCONTINUED] multivit dxocaqxv-jrzc-JN-calcium (THERA-M) tablet 1 tablet [DISCONTINUED] nicotine (NICODERM CQ) 14 mg patch 24 hour 1 patch [DISCONTINUED] ondansetron (ZOFRAN) injection 4 mg [DISCONTINUED] ondansetron ODT (ZOFRAN-ODT) disintegrating tablet 4 mg [DISCONTINUED] senna (SENOKOT) tablet 2 tablet [DISCONTINUED] spironolactone (ALDACTONE) tablet 25 mg [DISCONTINUED] topiramate (TOPAMAX) tablet 200 mg No facility-administered encounter medications on file as of 03/28/2023. Review of Systems: Review of Systems Constitutional: Negative for fatigue, fever and unexpected weight change. Respiratory: Negative for cough and shortness of breath. Cardiovascular: Negative for chest pain and palpitations. Gastrointestinal: Negative for abdominal pain. Endocrine: Negative for cold intolerance and heat intolerance. Skin: Negative for rash. Neurological: Negative for headaches. Psychiatric/Behavioral: Negative for agitation, behavioral problems and confusion. BP 90/58 (BP Location: Left arm, Patient Position: Sitting) Pulse 96 Temp 36.2 ??C (97.2 ??F) Resp 18 Ht 157.5 cm (5' 2 ) Wt 62.9 kg (138 lb 9.6 oz) LMP (LMP Unknown) SpO2 96% BMI 25.35 kg/m?? Physical Exam: Physical Exam Vitals and [...] sounds: Normal breath sounds. Musculoskeletal: Cervical back: Normal range of motion and neck supple. Neurological: Mental Status: She is alert and oriented to person, place, and time. Psychiatric: Behavior: Behavior normal. Thought Content: Thought content normal. Judgment: Judgment normal. Assessment & Plan: Diagnoses and all orders for this visit: Generalized anxiety disorder (Primary) Comments: Chronic. Uncontrolled. start Cymbalta. [facility]. Orders: - DULoxetine DR (CYMBALTA) 30 mg capsule; Take 1 capsule (30 mg total) by mouth 2 (two) times a day Medical Cannabis. HCP Certification Number: [id number] Body mass index is 25.35 kg/m??. BMI Plan: Nutrition/Activities/Behavioral Counseling. Education Provided. Chris Bean MD TUBE ASSEMBLER MACHINE TUBE ASSEMBLER MACHINE documented in this encounter Plan of Treatment Not on file documented as of this encounter Visit Diagnoses Diagnosis Generalized anxiety disorder- Primary documented in this encounter Care Teams Biomedical Scientist Relationship Specialty Start Date End Date Chris Bean MD [address] [facility] [address] [place] [address] [place] [id number] PCP - General Family Medicine 09/08/22 documented as of this encounter
--- OUTSIDE RECORDS SUMMARY | 2024-04-05 02:13 | XMS_ITS | Encounter Summary ---
Author Organization [facility] Address [address] [facility] [address] [place] [address] Care Team Providers Care Senior Ui Ux Designer Name Role Phone Chris Bean MD Primary Care Provider [phone] Reason for Visit * Reason Onset Date Comments Appointment Request 09/19/2022 Encounter Details Date Type Department Care Team (Late st Contact Info) Description 09/19/2022 Telephone [facility] Family Medicine at [address] [place] [address] Chris Bean MD [address] [place] [address] [address] [place] [address] Appointment Request Social History Tobacco Use Types Packs/Day Years Used Date Smoking Tobacco: Every Day Cigarettes 0.5 23.9 Started: 05/21/2000 Smokeless Tobacco: Never Alcohol Use Standard Drinks/Week Comments Yes 0 (1 standard drink = 0.6 oz pur e alcohol) daily AUDIT-C Answer Date Recorded Q1: How often do you have a drink containing alcohol? 4 or more times a week 09/26/2022 Q2: How many drinks containi ng alcohol do you have on a typical day when you are drinking? 1 or 2 Q3: How often do you have si x or more drinks on one occasion? Never 09/26/2022 PHQ-2 Answer Date Recorded PHQ-2 Total Score (If total score is 3 or more points, staff should administer the PHQ-9) 0 06/01/2022 Comments No Sex and Gender Information Value Date Recorded Sex Assigned at Not on file Legal Sex Female 1:49 PM CDT Gender Identity Female 06/30/2020 9:08 AM CDT Sexual Orientation Not on file documented as of this encounter Miscellaneous Notes * Telephone Encounter - Kimberly Billingsley - 09/19/2022 3:26 PM CDT Call Back Caller???s Concern: In reference to telephone encounter on 08/29/22. Patient called back in regards to scheduling her preventative exam and was addiment on seeing [facility]. Advised patient that [facility] is at max capacity for and not accepting new patients and that she would have to schedule with Dr. Bean. Patient refused to schedule with Dr. Bean and wanted to be scheduled with [facility]. Warm transferred to backline. Caller???s Call back #: [phone] Does message need to be routed? No documented in this encounter Plan of Treatment Not on file documented as of this encounter Visit Diagnoses Not on filedocumented in this encounter Care Teams Senior Ui Ux Designer Relationship Specialty Start Date End Date Chris Bean MD [address] [facility] [address] [place] [address] [place] [id number] PCP - General Family Medicine 09/08/22 documented as of this encounter
--- OUTSIDE RECORDS SUMMARY | 2024-04-05 02:13 | XMS_ITS | Encounter Summary ---
Author Organization [facility] Address [address] [facility] [address] [place] [address] Care Team Providers Care Sole Rougher Name Role Phone Chris Bean MD Primary Care Provider [phone] Reason for Visit * Reason Comments Follow-up Medication refill Encounter Details Date Type Department Care Team (Late st Contact Info) Description 09/26/2022 11:00 AM CDT Office Visit [facility] Family Medicine at [address] [place] [address] Chris Bean MD [address] [place] [address] [address] [place] [address] Encounter for annual health examination (Primary Dx); Screening mammogram, encounter for; Migraine without aura and without status migrainosus, not intractable; Benign essential HTN; Primary insomnia Social History Tobacco Use Types [...] when you are drinking? 1 or 2 3 Q3: How often do you have si [...] Sign Reading Time Taken Comments Blood Pressure 90/62 09/26/2022 11:14 AM CDT Pulse 96 09/26/2022 11:14 AM CDT Temperature 36.7 ??C (98.1 ??F) 09/26/2022 11:14 AM C DT Respiratory Rate 18 09/26/2022 11:14 AM CDT Oxygen Saturation 97% 09/26/2022 11:14 AM CDT Inhaled Oxygen Concentration - - Weight 62.1 kg (137 lb) 09/26/2022 11:14 AM CDT Height 157.5 cm (5' 2.01 ) 09/26/2022 11:14 AM C DT Body Mass Index 25.05 09/26/2022 11:14 AM CDT documented in this encounter Ordered Prescriptions Prescription Sig Dispense Quantity Refills Last Filled Start Date End Date amitriptyline (ELAVIL) 25 mg tabletIndications: Primary insomnia Take 2 tablets (50 mg total) by mouth nightly Pt is taking 1 and half tablets nightly 45 tablet 09/26/2022 3 furosemide (LASIX) 20 mg tablet Take 1 tablet (20 mg total) by mouth daily 90 tablet 1 09/26/2022 3 metoprolol XL (TOPROL-XL) 25 mg extended release tabletIndications: Benign essential HTN Take 1 tablet (25 mg total) by mouth daily 90 tablet 1 09/26/2022 3 topiramate (TOPAMAX) 100 mg tabletIndications: Migraine without aura and without status migrainosus, not intractable Take 1 tablet (100 mg total) by mouth 2 (two) times a day 180 tablet 1 09/26/2022 4 documented in this encounter Progress Notes * Chris Bean MD - 09/26/2022 11:00 AM CDT Images from the original note were not included. Visit date: 09/26/2022 Patient ID: Gerardo Whitt is a 47 y.o. female. Chief Complaint. Chief Complaint Patient presents with Follow-up Medication refill HPI. Patient is a 47 y.o. female HPI This is a 47 y.o. female presented for annual history and physical exam. Sleep: good Stress: Stable Diet: Not on any specific Diet Exercise: irregularly Fasting Blood work: Not within last 12 months. Last Colonosocpy: Performed on [address] torres . and UTD. Last Mammogram: Ordered For Today. [...] Tobacco Use Smoking status: Every Day Packs/day: 0.25 Types: Cigarettes Start date: 05/21/2000 Smokeless tobacco: [...] Current Medications: Outpatient Encounter Medications as of 09/26/2022 Medication Sig Dispense Refill nystatin 100,000 unit/mL suspension Take 5 mL (500,000 Units total) by mouth 4 (four) times a day Swish in mouth and spit out. 280 mL 0 tiZANidine (ZANAFLEX) 4 mg tablet Take 1 tablet (4 mg total) by mouth every 6 (six) hours as neededfor muscle spasms 90 tablet 2 [DISCONTINUED] amitriptyline (ELAVIL) 25 mg tablet TAKE 1 AND 1/2 TABLETS(37.5 MG) BY MOUTH EVERY NIGHT 45 tablet 0 [DISCONTINUED] furosemide (LASIX) 20 mg tablet Take 1 tablet (20 mg total) by mouth daily 3 [DISCONTINUED] metoprolol XL (TOPROL-XL) 25 mg extended release tablet Take 1 tablet (25 mg total) by mouth daily 90 tablet 1 [DISCONTINUED] topiramate (TOPAMAX) 100 mg tablet Take 1 tablet (100 mg total) by mouth 2 (two) times a day 180 tablet 1 albuterol HFA (ProAir HFA) 90 mcg/actuation inhaler Inhale 2 puffs every 4 (four) hours as needed for wheezing or shortness of breath 3 each 4 amitriptyline (ELAVIL) 25 mg tablet Take 2 tablets (50 mg total) by mouth nightly Pt is taking 1 and half tablets nightly 45 tablet 0 furosemide (LASIX) 20 mg tablet Take 1 tablet (20 mg total) by mouth daily 90 tablet 1 metoprolol XL (TOPROL-XL) 25 mg extended release tablet Take 1 tablet (25 mg total) by mouth daily 90 tablet 1 topiramate (TOPAMAX) 100 mg tablet Take 1 tablet (100 mg total) by mouth 2 (two) times a day 180 tablet 1 [DISCONTINUED] methylPREDNISolone (MEDROL DOSEPACK) 4 mg Dosepack Take as directed on package 1 packet 0 No facility-administered encounter medications on file as of 09/26/2022. Review of Systems: Review of Systems Constitutional: [...] behavioral problems, confusion and suicidal ideas. BP 90/62 (BP Location: Left arm, Patient Position: Sitting) Pulse 96 Temp 36.7 ??C (98.1 ??F) (Oral) Resp 18 Ht 157.5 cm (5' 2.01 ) Wt 62.1 kg (137 lb) LMP (LMP Unknown) SpO2 97% BMI 25.05 kg/m?? Physical Exam: Physical Exam Vitals and [...] visit: Encounter for annual health examination (Primary) - CBC with auto differential; Future - Comprehensive metabolic panel; Future - Lipid panel; Future - TSH; Future Screening mammogram, encounter for - Screening Mammogram Bilateral W Ok; Future Migraine without aura and without status migrainosus, not intractable - topiramate (TOPAMAX) 100 mg tablet; Take 1 tablet (100 mg total) by mouth 2 (two) times a day Benign essential HTN - metoprolol XL (TOPROL-XL) 25 mg extended release tablet; Take 1 tablet (25 mg total) by mouth daily Primary insomnia - amitriptyline (ELAVIL) 25 mg tablet; Take 2 tablets (50 mg total) by mouth nightly Pt is taking 1and half tablets nightly Other orders - furosemide (LASIX) 20 mg tablet; Take 1 tablet (20 mg total) by mouth daily Body mass index is 25.05 kg/m??. BMI Plan: Nutrition/Activities/Behavioral Counseling. Education Provided. Recommended aggressive Lifestyle modification and weight loss for improving overall weight related health conditions. Follow up in 1 or 3 months for continuing Lifestyle Medicine education and management visit. Recommend Lifestyle Seminar on Wednesdays @ 5pm. Chris Bean MD documented in this encounter Plan of Treatment Scheduled Orders Name Type Priority Associated Diagnoses Orde r Schedule CBC with auto differential Lab Routine Encounter for annual health examination Expected: 09/26/2022, Expires: 09/27/2023 Comprehensive metabolic panel Lab Routine Encounter for annual health examination Expected: 09/26/2022, Expires: 09/27/2023 Lipid panel Lab Routine Encounter for annual health examination Expected: 09/26/2022, Expires: 09/27/2023 TSH Lab Routine Encounter for annual health examination Expected: 09/26/2022, Expires: 09/27/2023 documented as of this encounter Visit Diagnoses Diagnosis Encounter for annual health examination- Primary Screening mammogram, encounter for Migraine without aura and without status migrainosus, not intractable Benign essential HTN Primary insomnia Persistent disorder of initiating or maintaining sleep documented in this encounter Discontinued Medications Medication Sig Discontinue Reason Start Date End Da te methylPREDNISolone (MEDROL DOSEPACK) 4 mg DosepackIndications: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 Take as directed on package Therapy completed 08/22/2022 09/26/2022 furosemide (LASIX) 20 mg tablet Take 1 tablet (20 mg total) by mouth daily Reorder 11/10/2018 09/26/2022 metoprolol XL (TOPROL-XL) 25 mg extended release tabletIndications:Benign essential HTN Take 1 tablet (25 mg total) by mouth daily Reorder 06/01/2022 09/26/2022 topiramate (TOPAMAX) 100 mg tabletIndications:Migrain e without aura and without status migrainosus, not intractable Take 1 tablet (100 mg total) by mouth 2 (two) times a day Reorder 07/10/2022 09/26/2022 amitriptyline (ELAVIL) 25 mg tabletIndications:Primary insomnia TAKE 1 AND 1/2 TABLETS(37.5 MG) BY MOUTH EVERY NIGHT Reorder 09/18/2022 09/26/2022 documented as of this encounter Care Teams Sole Rougher Relationship Specialty Start Date End Date Chris Bean MD [address] [facility] [address] [place] [address] [place] [id number] PCP - General Family Medicine 09/08/22 documented as of this encounter
--- OUTSIDE RECORDS SUMMARY | 2024-04-05 02:13 | XMS_ITS | Encounter Summary ---
Author Organization [facility] Address [address] [place] [address] Care Team Providers Care Supervisor Machining Name Role Phone Chris Bean MD Primary Care Provider [phone] Encounter Details Date Type Department Care Team (Late st Contact Info) Description 04/17/2023 Documentation [facility] Warm Hand Off Program [address] [place], [place] [phone] Ashley White Social History Tobacco Use Types Packs/Day Years [...] as of this encounter Progress Notes * Ashley White - 04/17/2023 6:53 AM CST PRS completed D/C [facility] and referral confirmation WHO will outreach in 30 days for follow up. [employer] documented in this encounter Plan of Treatment Not on file documented as of this encounter Visit Diagnoses Not on filedocumented in this encounter Care Teams Supervisor Machining Relationship Specialty Start Date End Date Chris Bean MD [address] [facility] [address] [place] [address] [place] [id number] PCP - General Family Medicine 09/08/22 documented as of this encounter
--- OUTSIDE RECORDS SUMMARY | 2024-04-05 02:13 | XMS_ITS | Encounter Summary ---
Author Organization [facility] Address [address] [place] [address] Care Team Providers Care Kraft Mill Operator Name Role Phone Chris Bean MD Primary Care Provider [phone] Encounter Details Date Type Department Care Team (Late st Contact Info) Description 03/19/2023 [facility] Initial Eligibility [facility] Warm Hand Off Program [address] [place], [place] [phone] Ravi Fernandes Social History Tobacco Use Types Packs/Day Years [...] as of this encounter Progress Notes * Ravi Fernandes - 03/19/2023 4:05 PM CST PATIENT INQUIRY FOR MEDICAL STABILIZATION DEMOGRAPHICS GENDER IDENTITY Female ADDRESS [address] [facility], [place] [address] PHONE NUMBER [phone] N [phone] INSURANCE NAME [facility] INS. ID [id number] SCHEDULED INTAKE ASSESSMENT DATE TIME 03.23.23 1030 DATE/TIME OF INITIAL CALL DATE TIME 03.19.23 4:20 pm SUBSTANCE(S) SUBSTANCE 1ST USED ROUTE [employer] *if applicable LAST USE Alcohol Type: 2-3 beers daily Opioid Type: hydrocodone 8 yrs 1-1/2 7.5 mg daily 03.19.23 Sedative/Hypnotic Type: Other: Overdose history: no How many times: na When: na DIAGNOSIS CODE(S) PRIMARY 11.20 SECONDARY 10.20 TERTIARY CURRENT WITHDRAWAL SYMPTOMS Does patient have a withdrawal history? : []Yes [x]No Fever: []Current []Historical Abdominal Distress: []Current []Historical Diarrhea: []Current []Historical Cravings: []Current []Historical Depression : []Current []Historical Anorexia : []Current []Historical Diaphoresis: []Current []Historical Pain: []Current []Historical Tremors: []Current []Historical Insomnia: []Current []Historical Lacrimation : []Current []Historical Nervous / Anxious: []Current []Historical Muscle Cramps: []Current []Historical Headache: []Current []Historical Nausea / Vomiting: []Current []Historical PRIOR [place] Location: none Year: Period of abstinence: Location: Year: Period of abstinence: Location: Year: Period of abstinence: If recently discharged from [facility] medical stabilization, what will be different this time? ALLERGIES no CURRENT MEDICATIONS & PRESCRIBING PHYSICIAN Medication name, dose, directions, prescribing physician. Hydrocodone 7.5 mg Metatrol 25 mg heart Prperimate multivitam Do you currently have, or have you been diagnosed with, any of the following? Medical Condition Substance Associated Medical Condition Substance Associated Hallucinations [] alcohol, meth Intestinal blockage [] opioids Cardiovascular Disease [] alcohol, MDMA Osteomyelitis (bone infection) [] opioids Cancer (specify) [] alcohol Viral Hepatitis (A,B or C) [] opioids Seizures [] alcohol, benzos, cocaine, MDMA Endocarditis (heart infection) [] opioids Pancreatitis (inflammation in the pancreas) [] alcohol Acute rhabdomyolysis ( of muscle fibers and their release into the bloodstream) [] stimulants Diabetes [] alcohol Hyperthermia (above normal body temperature) [] stimulants Hypo/Hyperglycemia (too low or too high blood sugars) [] alcohol Stroke [] stimulants Cirrhosis (late stage of scarring on the liver from Hep. C or chronic alcoholism) [] alcohol Arrhythmia (irregular heartbeat) [] cocaine, MDMA Anemia (lack red blood cells) [] alcohol Heart attack [] cocaine GI Symptoms: bloating, GERD, hemorrhoids, constipation, black stools, frequent, diarrhea [] alcohol Pulmonary hemorrhage (bleeding into the lung) [] cocaine Ascites (fluid between the abdominal lining and organs usually caused by cirrhosis) [] alcohol Lung damage [] cocaine Malnutrition [] alcohol Skin sores [] meth Wernicke-Korsakoff (neurological disorder; acute and chronic phases; Vitamin B and thiamine deficiency) [] alcohol Severe dental problems [] meth High BP (>120/80) [] alcohol, MDMA Deficits in thinking and motor skills [] meth Elevated pulse (>100bpm) [] alcohol Decreased cognitive function (decline in memory and thinking) [] MDMA Psychosis (including paranoia, hallucinations, repetitive motor activity) [] benzos, meth Heart damage [] MDMA Ringing in the ears [] benzos Kidney Failure [] MDMA [] Swelling of the brain [] MDMA High cholesterol [] Neurological problems [] Blood disorder [] Thyroid problems [] HIV [] Liver problems [] STDs (specify) [] Sleep problems [] Asthma/lung problems [] Infection(s) [] Muscle/joint problems [] Chronic pain [] Acute pain [] Tuberculosis (TB) [] Hearing problems [] Vision problems [] Other (specify) congestive heart failure 5 years ago, back surgery 08.03.22 [x] Are you currently, or could you be ? no If no medical condition(s), when was the last time you were seen in a hospital/urgent care? Reason? PRIMARY CARE PROVIDER Dr. Rivas rice If none, when was the last time you were seen in a hospital/urgent care? Reason? Have you been diagnosed with any of the following? []Depression []Anxiety []Bipolar []Schizophrenia []Post-Traumatic Stress Disorder []Other: If not already listed above, are you taking any mental health medications? SUICIDAL AND HOMICIDAL QUESTIONS Is the patient suicidal? []Yes (inform physician immediately if suicidal) [x]No If yes, does patient have a suicide plan? Is the patient homicidal? []Yes (refer to Emergency Dept. Immediately) [x]No DISCHARGE PLANNING Where would the patient like to go from here? []Inpatient [x]Outpatient []Partial Hospital [][facility] [][place] []So[facility] Living Do you have safe, reliable transportation (car and license, public transport., someone to drive you, etc.)? [x]Yes []No Do you have any problems with walking or getting around that would make it difficult to attend treatment? []Yes [x]No Do you have any legal requirement for residential, inpatient or fci house treatment? []Yes [x]No Do you have any concerns about seeking treatment? []Yes [x]No Plan of action Discharge planning begins at first contact: Does patient agree to allow referrals to be made to other organizations immediately? If not, why? How did you hear about our program? Are you interested in self-help support groups? []No []A.A. []N.A. []C.A. []C.R. Are you interested in working with a Director Speech Language? []No []Yes [facility] COOK documented in this encounter Plan of Treatment Not on file documented as of this encounter Visit Diagnoses Not on filedocumented in this encounter Care Teams Kraft Mill Operator Relationship Specialty Start Date End Date Chris Bean MD [address] [facility] [address] [place] [address] [place] [id number] PCP - General Family Medicine 09/08/22 documented as of this encounter
--- OUTSIDE RECORDS SUMMARY | 2024-04-05 02:13 | XMS_ITS | Encounter Summary ---
Author Organization [facility] Address [address] [facility] [address] [place] [address] Care Team Providers Care New Car Get Ready Mechanic Name Role Phone Chris Bean MD Primary Care Provider [phone] Reason for Visit * Reason Onset Date Comments Med Refill 11/22/2022 Encounter Details Date Type Department Care Team (Late st Contact Info) Description 11/22/2022 Telephone [facility] Family Medicine at [address] [place] [address] Chris Bean MD [address] [place] [address] [address] [place] [address] Med Refill Social History Tobacco Use Types Packs/Day Years [...] encounter Miscellaneous Notes * Telephone Encounter - Francy Morgan LPN - 11/22/2022 4:54 PM CDT [employer] message sent for clarification * Telephone Encounter - Sonia Frost - 11/22/2022 4:38 PM CDT Medication Question/Clarification Medication Name(s): pink eye drops What is the question or clarification needed? Patient would liked to be prescribed medication If needed, Pharmacy(s) medication(s) should be sent to: pharmacy on file Caller???s Callback #: [phone] Additional Comments: none Does message need to be routed? Yes-Action Needed documented in this encounter Plan of Treatment Not on file documented as of this encounter Visit Diagnoses Not on filedocumented in this encounter Care Teams New Car Get Ready Mechanic Relationship Specialty Start Date End Date Chris Bean MD [address] [facility] [address] [place] [address] [place] [id number] PCP - General Family Medicine 09/08/22 documented as of this encounter
--- OUTSIDE RECORDS SUMMARY | 2024-04-05 02:13 | XMS_ITS | Encounter Summary ---
Author Organization [facility] Healthcare Address [address] [place] [address] Care Team Providers Care Wrapper Opener Name Role Phone Chris Bean MD Primary Care Provider [phone] Reason for Visit * Auth/Cert (Routine) Specialty Diagnoses / Procedures Referred By Contac t Referred To Contact Diagnoses Opioid dependence, uncomplicated Alcohol withdrawal syndrome without complication (HCC) F11.20 Procedures na Referral ID Status Reason Start Date Expiration Date Visits Re quested Visits Authorized [id number] 1 1 Encounter Details Date Type Department Care Team (Late st Contact Info) Description 03/23/2023 11:30 AM METAL BONDING HELPER [address] [phone] Social History Tobacco Use Types Packs/Day Years [...] Procedure Name Priority Date/Time Associated Diagnosis Comments EGFR STAT 03/23/2023 10:56 AM METAL BONDING HELPER CBC WITHOUT DIFFERENTIAL STAT 03/23/2023 10:56 AM METAL BONDING HELPER COMPREHENSIVE METABOLIC PANEL STAT 03/23/2023 10:56 AM METAL BONDING HELPER documented in this encounter Results * eGFR (03/23/2023 10:56 AM METAL BONDING HELPER) eGFR 100 mL/min/1. 73 m2 [facility] ([place]) Comment: Interpretive Data Reference Interval Normal [...] Inclusion of Race in Diagnosing Kidney Disease, [place] 2020). The CKD-EPI equation should not be used for patients with unstable renal function and has not been validated in children and those over 70. Current interpretive data was last reviewed 2021. Blood 03/23/2023 10:5 6 AM METAL BONDING HELPER 03/23/2023 11:01 AM METAL BONDING HELPER us Judie Jackson MD LAB BLOOD ORDERABLES Final Re sult [facility] ([place]) [facility] Department [place] [address] * (ABNORMAL) Comprehensive metabolic panel (03/23/2023 10:56 AM METAL BONDING HELPER) Sodium 138 135 - 145 mmol/L [facility] ([place]) Potassium, pl 4.0 3.3 - 4.9 mmol/L [facility] ([place]) Chloride 102 97 - 110 mmol/L [facility] ([place]) CO2 24 22 - 32 mmol/L [facility] ([place]) Anion gap 13 2 - 15 mmol/L [facility] ([place]) BUN 10 6 - 25 mg/dL [facility] ([place]) Creatinine 0.74 0.60 - 1.10 mg/dL [facility] ([place]) Glucose 115 70 - 199 mg/dL [facility] ([place]) [...] classification and Diagnosis of Diabetes Diabetes Care 2021; 46: S19-S40. Current interpretive data was last revised 2022. Calcium 8.5 8.5 - 10.3 mg/dL [facility] ([place]) Bilirubin, total 0.7 0.1 - 1.2 mg/dL [facility] ([place]) Protein, pl 6.3(L) 6.5 - 8.5 g/dL [facility] ([place]) Albumin 3.9 3.5 - 5.0 g/dL [facility] ([place]) Alk phos 114 40 - 130 Units/L [facility] ([place]) ALT 13 7 - 45 Units/L [facility] ([place]) AST 76(H) 10 - 45 Units/L [facility] ([place]) Blood 03/23/2023 10:5 6 AM METAL BONDING HELPER 03/23/2023 11:01 AM METAL BONDING HELPER us Judie Jackson MD LAB BLOOD ORDERABLES Final Re sult [facility] ([place]) [facility] [place] [address] * (ABNORMAL) CBC without differential (03/23/2023 10:56 AM METAL BONDING HELPER) WBC 4.8 3.8 - 9.9 K/cumm [facility] ([place]) Hgb 12.2 11.9 - 15.5 g/dL [facility] ([place]) Comment: Interpretive Data A reference range for this assay has not been established for patients with an unknown legal sex. Please refer to the laboratory test catalog for established sex-specific reference intervals. Current interpretive data was last revised on 2023. Hct 36.7 35.6 - 45.5 % [facility] ([place]) Comment: Interpretive Data A reference range for this assay has not been established for patients with an unknown legal sex. Please refer to the laboratory test catalog for established sex-specific reference intervals. Current interpretive data was last revised on 2023. Plt 213 150 - 400 K/cumm [facility] ([place]) MPV 9.1 9.1 - 12.3 fL [facility] ([place]) RBC 3.44(L) 3.90 - 5.20 M/cumm [facility] ([place]) Comment: Interpretive Data A reference range for this assay has not been established for patients with an unknown legal sex. Please refer to the laboratory test catalog for established sex-specific reference intervals. Current interpretive data was last revised on 2023. MCV 106.7(H) 81.3 - 96.4 fL [facility] ([place]) MCH 35.5(H) 27.1 - 33.3 pg [facility] ([place]) MCHC 33.2 32.3 - 35.7 g/dL [facility] ([place]) RDW CV 13.8 11.1 - 14.9 % [facility] ([place]) RDW SD 54.1(H) 35.7 - 48.1 fL [facility] ([place]) NRBC abs 0.00 0.00 - 0.01 K/cumm [facility] ([place]) Blood 03/23/2023 10:5 6 AM METAL BONDING HELPER 03/23/2023 11:01 AM METAL BONDING HELPER us Judie Jackson MD LAB BLOOD ORDERABLES Final Re sult [facility] ([place]) [facility] [place] [address] documented in this encounter Visit Diagnoses Not on filedocumented in this encounter Care Teams Wrapper Opener Relationship Specialty Start Date End Date Chris Bean MD [address] [facility] [address] [place] [address] [place] [phone] PCP - General Family Medicine 09/08/22 documented as of this encounter
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
--- OUTSIDE RECORDS SUMMARY | 2024-04-05 02:13 | XMS_ITS | Encounter Summary ---
Author Organization [facility] Medical Group Address [address] [place] [address] Care Team Providers Care Svp Programmatic Tv Name Role Phone Chris Bean MD Primary Care Provider [phone] Encounter Details Date Type Department Care Team (Late st Contact Info) Description 10/24/2022 Telephone [facility] [place] [address] [place] [address] Ernesto Byrd MD [address] [facility] [address] [place] [address] Social History Tobacco Use Types Packs/Day Years [...] encounter Miscellaneous Notes * Addendum Note - Ana Rosa Reinoso RN - 10/25/2022 4:24 PM CDTAddended by: ANA ROSA REINOSO on: 10/25/2022 04:24 PM Modules accepted: Orders * Telephone Encounter - Ana Rosa Reinoso RN - 10/25/2022 4:17 PM CDT Spoke with patient - states she is still dealing with pain issues and would like to start some physical therapy to help with pain and overall improvement. Will mail patient an order for PT and she can also review aqua PT exercises as well. Pt verbalized understanding. * Telephone Encounter - Katie Fernandez - 10/24/2022 2:47 PM CDT Patient is calling about doing Aqua therapy at home. Please call patient documented in this encounter Plan of Treatment Not on file documented as of this encounter Visit Diagnoses Diagnosis Status post lumbar microdiscectomy- Primary Other postprocedural status documented in this encounter Care Teams Svp Programmatic Tv Relationship Specialty Start Date End Date Chris Bean MD [address] [facility] [address] [place] [address] [place] [id number] PCP - General Family Medicine 09/08/22 documented as of this encounter
--- OUTSIDE RECORDS SUMMARY | 2024-04-05 02:13 | XMS_ITS | Encounter Summary ---
Author Organization [facility] Healthcare Address [address] [place] [address] Care Team Providers Care Summer Internship Name Role Phone Chris Bean MD Primary Care Provider [phone] Encounter Details Date Type Department Care Team (Late st Contact Info) Description 03/24/2023 Documentation [facility] Warm Hand Off Program 1 [place], [place] [phone] Ravi Fernandes Social History Tobacco Use Types [...] as of this encounter Progress Notes * Fernandes, Ravi - 03/24/2023 2:25 PM CST PEER MEDICAL DOCTOR NUCLEAR MEDICINE met with Pt bedside. Pt was doing their hair and walked [employer] MEDICAL DOCTOR NUCLEAR MEDICINE in. Pt stated that she wanted to stop using opioids for pain. PEER MEDICAL DOCTOR NUCLEAR MEDICINE encouraged Pt to speak to doctor about ideas and to ask about the use of Suboxone for pain management. Pt stated that they did not want to commit to residential treatment at this time with Ruth jackson. Pt stated that they are interested in outpatient treatment in the area of their home. [facility] MEDICAL DOCTOR NUCLEAR MEDICINE let Pt know that [facility] MEDICAL DOCTOR NUCLE[facility] MEDICINE will look and see what they could find for OP treatment in the [facility]. BING MACHINE OPERATOR documented in this encounter Plan of Treatment Not on file documented as of this encounter Visit Diagnoses Not on filedocumented in this encounter Care Teams Summer Internship Relationship Specialty Start Date End Date Chris Bean MD [address] [facility] [address] [place] [address] [place] [address] PCP - General Family Medicine 09/08/22 documented as of this encounter
--- OUTSIDE RECORDS SUMMARY | 2024-04-05 02:13 | XMS_ITS | Encounter Summary ---
Author Organization [facility] Healthcare Address [address] [place] [address] Care Team Providers Care Radio Personality Name Role Phone Chris Bean MD Primary Care Provider [phone] Encounter Details Date Type Department Care Team (Late st Contact Info) Description 03/13/2023 Telephone [facility] Medical Group Family Medicine at [address] [place] [address] Chris Bean MD [address] [place] [address] [address] [place] [address] Social History Tobacco Use Types Packs/Day Years [...] Telephone Encounter - Kyara Nj MA - 03/13/2023 3:14 PM CST Patient's lab orders have at [facility] will need new orders Orders in [facility] TRE MANAGER documented in this encounter Plan of Treatment Not on file documented as of this encounter Procedures Procedure Name Priority Date/Time Associated Diagnosis Comments CBC WITH AUTO DIFFERENTIAL Routine 09/04/2023 10:29 AM CDT Benign essential HTN TSH Routine 09/04/2023 10:29 AM CDT Screening for metabolic disorder LIPID PANEL Routine 09/04/2023 10:29 AM CDT Screening for lipoid disorders COMPREHENSIVE METABOLIC PANEL Routine 09/04/2023 10:29 AM CDT Benign essential HTN documented in this encounter Results * (ABNORMAL) Lipid panel (09/04/2023 10:29 AM CDT) Cholesterol 232(H) 100 - 199 mg/dL [facility] - 01 Triglycerides 82 0 - 149 mg/dL [facility] - 01 HDL Cholesterol 147 >39 mg/dL [facility] - 01 VLDL 14 5 - 40 mg/dL [facility] - 01 LDL, calculated 71 0 - 99 mg/dL [facility] - 01 Blood 09/04/2023 10:2 9 AM CDT 09/04/2023 Narrative [facility] - 09/05/2023 3:35 AM CDT Performed at: ??01 - [address] ??[id number] Ball Maker: Zhao Pugh PhD, Phone: ??[phone] us Chris Bean MD LAB BLOOD ORDERABLES Final Resul t [facility] * (ABNORMAL) Comprehensive metabolic panel (09/04/2023 10:29 AM CDT) Glucose 110(H) 70 - 99 mg/dL [facility] - 01 BUN 8 6 - 24 mg/dL [facility] - 01 Creatinine, Serum 0.82 0.57 - 1.00 mg/dL [facility] - 01 eGFR 89 >59 mL/min/1.7 3 [facility] - 01 BUN/creat ratio 10 9 - 23 [facility] - 01 Sodium 136 134 - 144 mmol/L [facility] - 01 Potassium, sr 4.2 3.5 - 5.2 mmol/L [facility] - 01 Chloride 97 96 - 106 mmol/L [facility] - 01 CO2 24 20 - 29 mmol/L [facility] - 01 Calcium 9.2 8.7 - 10.2 mg/dL [facility] - 01 Protein, sr 6.0 6.0 - 8.5 g/dL [facility] - 01 Albumin 3.9 3.9 - 4.9 g/dL [facility] - 01 Globulin, Total 2.1 1.5 - 4.5 g/dL [facility] - 01 A/G Ratio 1.9 1.2 - 2.2 [facility] - 01 Bilirubin, Total 0.9 0.0 - 1.2 mg/dL [facility] - 01 Alk phos 154(H) 44 - 121 IU/L [facility] - 01 AST 106(H) 0 - 40 IU/L [facility] - 01 ALT 38(H) 0 - 32 IU/L [facility] - 01 Blood 09/04/2023 10:2 9 AM CDT 09/04/2023 Narrative [facility] - 09/05/2023 3:35 AM CDT Performed at: ??01 - [facility] [address] ??[id number] Ball Maker: Zhao Pugh PhD, Phone: ??[phone] us Chris Bean MD LAB BLOOD ORDERABLES Final Resul t [facility] - 01 * (ABNORMAL) CBC with auto differential (09/04/2023 10:29 AM CDT) WBC 5.0 3.4 - 10.8 x10E3/uL [facility] - 01 RBC 3.61(L) 3.77 - 5.28 x10E6/uL [facility] - 01 Hgb 12.9 11.1 - 15.9 g/dL [facility] - 01 Hct 38.2 34.0 - 46.6 % [facility] - 01 MCV 106(H) 79 - 97 fL [facility] - 01 MCH 35.7(H) 26.6 - 33.0 pg [facility] - 01 MCHC 33.8 31.5 - 35.7 g/dL [facility] - 01 Rdw 16.4(H) 11.7 - 15.4 % [facility] - 01 Platelets 253 150 - 450 x10E3/uL [facility] - 01 Neutrophils pct 66 Not Estab. % [facility] - 01 Lymphs pct 20 Not Estab. % [facility] - 01 Monocytes pct 10 Not Estab. % [facility] - 01 Eosinophils pct 2 Not Estab. % [facility] - 01 Basophil pct 1 Not Estab. % [facility] - 01 Neutrophil abs 3.4 1.4 - 7.0 x10E3/uL [facility] - 01 Lymphs (Absolute) 1.0 0.7 - 3.1 x10E3/uL [facility] - 01 Monocyte abs 0.5 0.1 - 0.9 x10E3/uL [facility] - 01 Eosinophils, abs 0.1 0.0 - 0.4 x10E3/uL [facility] - 01 Basophils, abs 0.1 0.0 - 0.2 x10E3/uL [facility] - 01 Immature Granulocytes 1 Not Estab. % [facility] - 01 Immature Grans (Abs) 0.0 0.0 - 0.1 x10E3/uL [facility] - 01 Blood 09/04/2023 10:2 9 AM CDT 09/04/2023 Narrative [facility] - 09/05/2023 1:07 AM CDT Performed at: ??01 - [facility] [address] ??[id number] Ball Maker: Zhao Pugh PhD, Phone: ??[phone] us Chris Bean MD LAB BLOOD ORDERABLES Final Resul t Performing Organization Address [facility] de Phone Number [facility] - * TSH (09/04/2023 10:29 AM CDT) TSH 3.090 0.450 - 4.500 uIU/mL [facility] - 01 Blood 09/04/2023 10:2 9 AM CDT 09/04/2023 Narrative [facility] - 09/05/2023 4:08 AM CDT Performed at: ??01 - [facility] [address] ??[id number] Ball Maker: Zhao Pugh PhD, Phone: ??[phone] us Chris Bean MD LAB BLOOD ORDERABLES Final Resul t Performing Organization Address [facility] Co de Phone Number [facility] - documented in this encounter Visit Diagnoses Diagnosis Benign essential HTN- Primary Screening for lipoid disorders Screening for metabolic disorder documented in this encounter Care Teams Radio Personality Relationship Specialty Start Date End Date Chris Bean MD [address] [facility] [address] [place] [address] [place] [address] PCP - General Family Medicine 09/08/22 documented as of this encounter
--- OUTSIDE RECORDS SUMMARY | 2024-04-05 02:13 | XMS_ITS | Encounter Summary ---
Author Organization [facility] Healthcare Address [address] [place] [address] Care Team Providers Care Retail Selling Specialist Name Role Phone Chris Bean MD Primary Care Provider [phone] Encounter Details Date Type Department Care Team (Late st Contact Info) Description 03/27/2023 Documentation [facility] Warm Hand Off Program 1 [place], [place] [phone] Galo Wang Social History Tobacco Use Types [...] as of this encounter Progress Notes * Galo Wang - 03/27/2023 11:06 AM CST PEER MORGUE LIBRARIAN made contact with medical staff and proceeded to Pt's room. PEER MORGUE LIBRARIAN met w/Pt at bedside in follow-up to provide support, share lived experience, and discuss transition of care plan. Pt presented to be lethargic but oriented during encounter. Pt noted she atthis time is planning to engage with OP services through [email or web address] for continued careplans. Pt has been provided with instructional steps to completed Substance Use Disorder assessmentto engage with services. Pt is aware she will need to call [phone] on Tuesdays at 13:00 or at 09:00 to complete enrollment assessment for OP services. Pt also has been in touch with [facility] staff Alfreda Josue to schedule for one on one therapy sessions. Pt planning to D/C home. PEER MORGUE LIBRARIAN encouraged Pt to reach out to [facility] anytime if she has any questions or is in need of support. [facility] will follow up with Pt on an OP basis. [facility] documented in this encounter Plan of Treatment Not on file documented as of this encounter Visit Diagnoses Not on filedocumented in this encounter Care Teams Retail Selling Specialist Relationship Specialty Start Date End Date Chris Bean MD [address] [facility] [address] [place] [address] [place] [address] PCP - General Family Medicine 09/08/22 documented as of this encounter
--- OUTSIDE RECORDS SUMMARY | 2024-04-05 02:13 | XMS_ITS | Encounter Summary ---
Author Organization [facility] Medical Group Address [address] [facility] [address] [place] [address] Care Team Providers Care Body Straightener Name Role Phone Chris Bean MD Primary Care Provider [phone] Reason for Visit * Reason Onset Date Comments Med Refill 01/04/2023 Encounter Details Date Type Department Care Team (Late st Contact Info) Description 01/04/2023 Telephone [facility] Family Medicine at [address] [place] [address] Chris Bean MD [address] [place] [address] [address] [place] [address] Med Refill Social History Tobacco [...] Refills Last Filled Start Date End Date nystatin 100,000 unit/mL suspension Take 5 mL (500,000 Units total) by mouth 4 (four) times a day Swish in mouth and spit out. 280 mL 01/04/2023 03/02/2023 documented in this encounter Miscellaneous Notes * Telephone Encounter - Chris Bean MD - 01/04/2023 2:21 PM CDT sent * Telephone Encounter - Sonia Frost - 01/04/2023 12:01 PM CDT Medication Question/Clarification Medication Name(s): nystatin 100,000 unit/mL suspension What is the question or clarification needed? Patient would like to be prescribed for her thrush If needed, Pharmacy(s) medication(s) should be sent to: pharmacy on file Caller???s Callback #: [phone] Additional Comments: none Does message need to be routed? Yes-Action Needed documented in this encounter Plan of Treatment Not on file documented as of this encounter Visit Diagnoses Not on filedocumented in this encounter Care Teams Body Straightener Relationship Specialty Start Date End Date Chris Bean MD [address] [facility] [place] [address] PCP - General Family Medicine 09/08/22 documented as of this encounter
--- OUTSIDE RECORDS SUMMARY | 2024-04-05 02:13 | XMS_ITS | Encounter Summary ---
Author Organization [facility] Medical Group Address [address] [address] Care Team Providers Care Road Engineer Freight Name Role Phone Chris Bean MD Primary Care Provider [phone] Reason for Visit * Diagnostic Imaging (Routine) - Closed Specialty Diagnoses / Procedures Referred By Ralph vásquez Referred To Contact Diagnoses Intervertebral disc disorder with radiculopathy of lumbar region Status post lumbar surgery Procedures XR Spine Lumbar 2 or 3 Views Gena Paz, VIMAL Phone: tel: fax: [facility] Medical [facility] Referral ID Status Reason Start Date Expiration Date Visits Re quested Visits Authorized [id number] Closed 09/13/2022 10/13/2023 1 1 Encounter Details Date Type Department Care Team (Late st Contact Info) Description 09/13/2022 8:25 AM CDT Ancillary Procedure [facility] [place] [address] [facility] [address] [place] [address] Social History Tobacco Use Types Packs/Day Years Used Date Smoking Tobacco: Every Day Cigarettes 0.5 23.9 Started: 05/21/2000 Smokeless Tobacco: Never Alcohol Use Standard Drinks/Week Comments Yes 0 (1 standard drink = 0.6 oz pur e alcohol) daily AUDIT-C Answer Date Recorded Q1: How often do you have a drink containing alcohol? 4 or more times a week 08/03/2022 Q2: How many drinks containi ng alcohol do you have on a typical day when you are drinking? 1 or 2 Q3: How often do you have si x or more drinks on one occasion? Never 08/03/2022 PHQ-2 Answer Date Recorded PHQ-2 Total Score [...] Procedure Name Priority Date/Time Associated Diagnosis Comments XR SPINE LUMBAR 2 OR 3 VIEWS Schedule Routine, Read Routine (OP Routine) 09/13/2022 10:23 AM CDT Intervertebral disc disorder with radiculopathy of lumbar region Status post lumbar surgery documented in this encounter Results * XR Spine Lumbar 2 or 3 Views (09/13/2022 10:23 AM CDT) Anatomical Region Laterality Modality Spine N/A Digital Radiogra phy Narrative 09/13/2022 10:46 AM CDT Lumbar AP lateral x-rays performed in the office and personally reviewed by me show well-decompressed L5-S1 on the right without changes in the alignment. ??Degenerative changes of the disc space noted at L4-5 and L5-S1. Gena Paz PROPERTY DISPOSAL OFFICER IMG XR PROCEDURES Final Result documented in this encounter Visit Diagnoses Not on filedocumented in this encounter Care Teams Road Engineer Freight Relationship Specialty Start Date End Date Chris Bean MD [address] [facility] [place] [address] PCP - General Family Medicine 09/08/22 documented as of this encounter
--- OUTSIDE RECORDS SUMMARY | 2024-04-05 02:13 | XMS_ITS | Encounter Summary ---
Author Organization [facility] Healthcare Address [address] [place] [address] Care Team Providers Care Pack Out Operator Name Role Phone Chris Bean MD Primary Care Provider [phone] Encounter Details Date Type Department Care Team (Late st Contact Info) Description 03/25/2023 Documentation [facility] Warm Hand Off Program 1 [place], [place] [phone] Ravi Fernandes Social History Tobacco Use Types [...] as of this encounter Progress Notes * Vaibhav Fernandesson - 03/25/2023 3:31 PM CST PEER RFP WRITER met with Pt bedside. Pt and PEER RFP WRITER spoke about outpatient areas around [place]. Pt also talked about finding a counselor. PEER RFP WRITER gave Pt a list of numbers for their area for Pt to call. [facility]. LPN CNA documented in this encounter Plan of Treatment Not on file documented as of this encounter Visit Diagnoses Not on filedocumented in this encounter Care Teams Pack Out Operator Relationship Specialty Start Date End Date Chris Bean MD [address] [facility] [address] [place] [address] [place] [address] PCP - General Family Medicine 09/08/22 documented as of this encounter
--- OUTSIDE RECORDS SUMMARY | 2024-04-05 02:14 | XMS_ITS | Encounter Summary ---
Author Organization [facility] Medical Group Address [address] [facility] [address] [place] [address] Care Team Providers Care Cage Operator Name Role Phone Travis Durand MD Primary Care Provider [phone] Encounter Details Date Type Department Care Team (Late st Contact Info) Description 03/02/2022 Telephone [facility] Medical [facility] Family Medicine at [address] [place] [address] Travis Durand MD [address] [place] [address] [address] [place], [place] [phone] Social History Tobacco Use Types Packs/Day Years Used Date Smoking Tobacco: Every Day Cigarettes 0.5 23.9 Started: 05/21/2000 Smokeless Tobacco: Never Alcohol Use Standard Drinks/Week Comments Yes 0 (1 standard drink = 0.6 oz pur e alcohol) daily AUDIT-C Answer Date Recorded Q1: How often do you have a drink containing alcohol? 4 or more times a week 06/30/2020 Q2: How many drinks containi ng alcohol do you have on a typical day when you are drinking? 1 or 2 Frequency of Binge Drinking Not on file 06/14 PHQ-2 Answer Date Recorded PHQ-2 Total Score (If total score is 3 or more points, staff should administer the PHQ-9) 6 06/30/2020 Comments Unknown Sex and Gender Information Value Date Recorded Sex Assigned at Not on file Legal Sex Female 1:49 PM CDT Gender Identity Female 06/30/2020 9:08 AM CDT Sexual Orientation Not on file documented as of this encounter Miscellaneous Notes * Telephone Encounter - Antonina Ferrer - 03/02/2022 1:40 PM CST error N SHOVELER documented in this encounter Plan of Treatment Not on file documented as of this encounter Visit Diagnoses Not on filedocumented in this encounter Care Teams Cage Operator Relationship Specialty Start Date End Date Travis Durand MD PCP - General Family Medicine 09/16/19 05/31/22 documented as of this encounter
--- OUTSIDE RECORDS SUMMARY | 2024-04-05 02:14 | XMS_ITS | Encounter Summary ---
Author Organization [facility] Address [address] [place] [address] Care Team Providers Care Coffee Roaster Helper Name Role Phone Unavailable Primary Care Provider Unavailabl e Reason for Visit * Reason Comments Follow-up Med refill Encounter Details Date Type Department Care Team (Late st Contact Info) Description 06/01/2022 2:45 PM EQUITY SALES ASSISTANT Telemedicine [facility] Family Medicine at [address] [place] [address] Chris Bean MD [address] [place] [address] [address] [place] [address] Benign essential HTN (Primary Dx); Migraine without aura and without status migrainosus, not intractable; Irritable bowel syndrome with constipation; Primary insomnia Social History Tobacco Use Types Packs/Day Years Used Date Smoking Tobacco: Every Day Cigarettes 0.5 23.9 Started: 05/21/2000 Smokeless Tobacco: Never Tobacco Cessation:Ready to Q uit: Not Asked; Counseling Given: Not Answered Alcohol Use Standard Drinks/Week Comments Yes 0 (1 standard drink = 0.6 oz pur e alcohol) daily AUDIT-C Answer Date Recorded Q1: How often do you have a drink containing alcohol? 4 or more times a week 06/01/2022 Q2: How many drinks containi ng alcohol do you have on a typical day when you are drinking? 1 or 2 3 Q3: How often do you have si x or more drinks on one occasion? Never 06/01/2022 PHQ-2 Answer Date Recorded PHQ-2 Total Score (If total score is 3 or more points, staff should administer the PHQ-9) 0 06/01/2022 Comments Unknown Sex and Gender Information Value [...] - Inhaled Oxygen Concentration - - Weight 62.6 kg (138 lb) 06/01/2022 2:56 PM EQUITY SALES ASSISTANT Height 154.9 cm (5' 1 ) 06/01/2022 2:56 PM EQUITY SALES ASSISTANT Body Mass Index 26.07 06/01/2022 2:56 PM EQUITY SALES ASSISTANT documented in this encounter Ordered Prescriptions Prescription Sig Dispense Quantity Refills Last Filled Start Date End Date albuterol HFA (ProAir HFA) 90 mcg/actuation inhaler Inhale 2 puffs every 4 (four) hours as needed for wheezing or shortness of breath 3 each 4 06/01/2022 4 amitriptyline (ELAVIL) 25 mg tabletIndications: Primary insomnia Take 1.5 tablets (37.5 mg total) by mouth nightly 135 tablet 06/01/2022 3 linaCLOtide (LINZESS) 145 mcg capsuleIndications :Irritable bowel syndrome with constipation Take 1 capsule (145 mcg total) by mouth daily 90 capsule 06/01/2022 3 metoprolol XL (TOPROL-XL) 25 mg extended release tabletIndications: Benign essential HTN Take 1 tablet (25 mg total) by mouth daily 90 tablet 1 06/01/2022 3 topiramate (TOPAMAX) 100 mg tabletIndications: Migraine without aura and without status migrainosus, not intractable Take 1 tablet (100 mg total) by mouth 2 (two) times a day 180 tablet 1 06/01/2022 3 documented in this encounter Progress Notes * Chris Bean MD - 06/01/2022 2:45 PM CST Images from the original note were not included. Visit date: 06/01/2022 Patient ID: Gerardo Whitt is a 47 y.o. female. Chief Complaint. Chief Complaint Patient presents with Follow-up Med refill HPI. Patient is a 47 y.o. female Back Pain The quality of the pain is described as stabbing. The pain is at a severity of 7/10. Pertinent negatives include no abdominal pain, chest pain, fever or headaches. Hypertension: BP home readings: normal. Diet: regular. Exercise: Not Routine. LDL at goal: yes. Tolerating medications: yes. Lipids: Medication adherance: yes. Physical Activity: Adherance? Yes Diet Adherence: Adherence? Yes Medication Adherance: Adherance? Yes Medication side effects: Side effects: none Diabetes education in the past: Past education: Yes Short Depression Screen PHQ2: 1. Over past two weeks, have you ever felt down, depressed or hopeless? No 2. Have you felt little interest or pleasure in doing things? No. Recent lipid panel revealed well-controlled lipids and liver function tests. Past Medical History: Diagnosis Date Anxiety Headache Hypertension Radicular leg pain Past Surgical History: Procedure Laterality Date BACK SURGERY SECTION HYSTERECTOMY TONSILLECTOMY/ADENOIDECTOMY No Known Allergies Social History Tobacco Use Smoking status: Every Day Packs/day: 0.50 Types: Cigarettes Start date: 05/21/2000 Smokeless tobacco: Never Substance and Sexual Activity Drug use: Not Currently Sexual activity: None Alcohol Use: Not At Risk Frequency of Alcohol Consumption: 4 or more times a week Average Number of Drinks: 1 or 2 Frequency of Binge Drinking: Never Family History Problem Relation Age of Onset Diabetes Mother Family history of diabetes mellitus - (Added by TW Conv) Dementia Father Mental illness Brother No Known Problems Daughter ADD / ADHD Son No Known Problems Maternal Grandmother No Known Problems Maternal Grandfather No Known Problems Paternal Grandmother No Known Problems Paternal Grandfather Current Medications: Outpatient Encounter Medications as of 06/01/2022 Medication Sig Dispense Refill furosemide (LASIX) 20 mg tablet Take 1 tablet by mouth daily 3 HYDROcodone-acetaminophen (NORCO) 7.5-325 mg per tablet TAKE 1 TABLET BY MOUTH EVERY 6 HOURS [DISCONTINUED] amitriptyline (ELAVIL) 25 mg tablet Take 1.5 tablets (37.5 mg total) by mouth nightly 45 tablet 0 [DISCONTINUED] linaCLOtide (LINZESS) 145 mcg capsule Take 1 capsule (145 mcg total) by mouth daily 30 capsule 5 [DISCONTINUED] metoprolol XL (TOPROL-XL) 25 mg extended release tablet Take 1 tablet (25 mg total) by mouth daily 90 tablet 0 [DISCONTINUED] topiramate (TOPAMAX) 100 mg tablet Take 1 tablet (100 mg total) by mouth 2 (two) times a day 60 tablet 0 al & mag hydroxide ttqnvtkprfw-zkpmvifdxnquxzr-umberppmo-nystatin (MAGIC MOUTHWASH) suspension 1-1-1-1 Swish and swallow 10 mL 4 (four) times a day (Patient not taking: Reported on 03/21/2021) 300mL 0 albuterol HFA (ProAir HFA) 90 mcg/actuation inhaler Inhale 2 puffs every 4 (four) hours as needed for wheezing or shortness of breath 3 each 4 amitriptyline (ELAVIL) 25 mg tablet Take 1.5 tablets (37.5 mg total) by mouth nightly 135 tablet 0 ibuprofen (ADVIL,MOTRIN) 800 mg tablet Take by mouth every 6 (six) hours as needed (Patient not taking: No sig reported) linaCLOtide (LINZESS) 145 mcg capsule Take 1 capsule (145 mcg total) by mouth daily 90 capsule 0 magnesium oxide (MAG-OX) 250 mg (150.8 mg elemental) tablet 250 mg daily (Patient not taking: Reported on 07/19/2021) metoprolol XL (TOPROL-XL) 25 mg extended release tablet Take 1 tablet (25 mg total) by mouth daily 90 tablet 1 multivitamin capsule Take 1 capsule by mouth daily (Patient not taking: Reported on 07/19/2021) topiramate (TOPAMAX) 100 mg tablet Take 1 tablet (100 mg total) by mouth 2 (two) times a day 180 tablet 1 [DISCONTINUED] busPIRone (BUSPAR) 15 mg tablet TAKE 1 TABLET(15 MG) BY MOUTH TWICE DAILY (Patient not taking: Reported on 07/19/2021) 60 tablet 3 [DISCONTINUED] cetirizine (ZyrTEC) 10 mg tablet Take 10 mg by mouth daily (Patient not taking: Reported on 07/19/2021) [DISCONTINUED] cyclobenzaprine (FLEXERIL) 10 mg tablet Take 10 mg by mouth 3 (three) times a day (Patient not taking: Reported on 03/21/2021) [DISCONTINUED] potassium 99 mg tablet Take 1 tablet by mouth daily (Patient not taking: Reported on07/19/2021) [DISCONTINUED] zinc 50 mg tablet Take 1 tablet by mouth daily (Patient not taking: Reported on 07/19/2021) No facility-administered encounter medications on file as of 06/01/2022. Review of Systems: Review of Systems Constitutional: Negative for fatigue, fever and unexpected weight change. Respiratory: Negative for cough and shortness of breath. Cardiovascular: Negative for chest pain and palpitations. Gastrointestinal: Negative for abdominal pain. Endocrine: Negative for cold intolerance and heat intolerance. Musculoskeletal: Positive for back pain. Skin: Negative for rash. Neurological: Negative for headaches. Psychiatric/Behavioral: Negative for agitation, behavioral problems and confusion. Ht 154.9 cm (5' 1 ) Wt 62.6 kg (138 lb) BMI 26.07 kg/m?? Physical Exam: Physical Exam Vitals and nursing note reviewed. This was a telemedicine visit with Gerardo gill which took place via real-time video connection with [employer]. During the visit, I was located at [place] [facility] [address] and patient was located at home in the [facility]. The video session started at 3 :00pm and ended at 3:15pm The patient has been informed that the visit may not be secure and acknowledged the information. I have explained the option of participating in a telephone or video visit during the COVID-19 public health emergency to the patient. After being given an opportunity to ask questions about and discuss this type of visit, the patient verbally consented to proceeding with the telephone/video visit.The patient understands that this service replaces an office visit and they may be billed and/or responsible for any applicable copayments. Assessment & Plan: Overall Condition Stable and Well-controlled. Treatment: Continue Present Management Follow up in 6 months Diagnoses and all orders for this visit: Benign essential HTN (Primary) - metoprolol XL (TOPROL-XL) 25 mg extended release tablet; Take 1 tablet (25 mg total) by mouth daily Migraine without aura and without status migrainosus, not intractable - topiramate (TOPAMAX) 100 mg tablet; Take 1 tablet (100 mg total) by mouth 2 (two) times a day Irritable bowel syndrome with constipation Comments: conditon chronic and at goal continue the linzess 145 Orders: - linaCLOtide (LINZESS) 145 mcg capsule; Take 1 capsule (145 mcg total) by mouth daily Primary insomnia - amitriptyline (ELAVIL) 25 mg tablet; Take 1.5 tablets (37.5 mg total) by mouth nightly Other orders - albuterol HFA (ProAir HFA) 90 mcg/actuation inhaler; Inhale 2 puffs every 4 (four) hours as needed for wheezing or shortness of breath Body mass index is 26.07 kg/m??. BMI Plan: Nutrition/Activities/Behavioral Counseling. Education Provided. Chris Baen MD TY SALES ASSISTANT documented in this encounter Plan of Treatment Not on file documented as of this encounter Visit Diagnoses Diagnosis Benign essential HTN- Primary Migraine without aura and without status migrainosus, not intractable Irritable bowel syndrome with constipation Irritable bowel syndrome Primary insomnia Persistent disorder of initiating or maintaining sleep documented in this encounter Discontinued Medications Medication Sig Discontinue Reason Start Date End Da te busPIRone (BUSPAR) 15 mg tabletIndications:Situati onal anxiety TAKE 1 TABLET(15 MG) BY MOUTH TWICE DAILY Therapy completed 08/23/2020 06/01/2022 cetirizine (ZyrTEC) 10 mg tablet Take 10 mg by mouth daily Therapy completed 06/01/2022 cyclobenzaprine (FLEXERIL) 10 mg tablet Take 10 mg by mouth 3 (three) times a day Therapy completed 11/26/2020 06/01/2022 zinc 50 mg tablet Take 1 tablet by mouth daily Therapy completed 06/01/2022 potassium 99 mg tablet Take 1 tablet by mouth daily Therapy completed 06/01/2022 linaCLOtide (LINZESS) 145 mcg capsuleIndications:Irrita ble bowel syndrome with constipation Take 1 capsule (145 mcg total) by mouth daily Reorder 07/19/2021 06/01/2022 metoprolol XL (TOPROL-XL) 25 mg extended release tablet Take 1 tablet (25 mg total) by mouth daily Reorder 03/07/2022 06/01/2022 amitriptyline (ELAVIL) 25 mg tabletIndications:Primary insomnia Take 1.5 tablets (37.5 mg total) by mouth nightly Reorder 05/26/2022 06/01/2022 topiramate (TOPAMAX) 100 mg tabletIndications:Migrain e without aura and without status migrainosus, not intractable Take 1 tablet (100 mg total) by mouth 2 (two) times a day Reorder 05/30/2022 06/01/2022 documented as of this encounter
--- OUTSIDE RECORDS SUMMARY | 2024-04-05 02:14 | XMS_ITS | Encounter Summary ---
Author Organization [facility] Address [address] [place] [address] Care Team Providers Care Youth Associate Name Role Phone Unavailable Primary Care Provider Unavailabl e Reason for Visit * Reason Onset Date Comments image results 06/09/2022 Encounter Details Date Type Department Care Team (Late st Contact Info) Description 06/09/[address] [facility] [address] [place] [address] Elvira Brunson, RN image results Social History Tobacco Use Types Packs/Day [...] encounter Miscellaneous Notes * Telephone Encounter - Elvira Brunson RN - 06/09/2022 9:02 AM CONTOUR STITCHER LM for pt about information below. Informed patient to call back if she was interested in proceeding with surgery with Dr. Byrd, and we can set her up if she would like to go that route. ----- Message from Ernesto Byrd MD sent at 06/07/2022 4:31 PM CONTOUR STITCHER ----- Regarding: Result review I reviewed the MRI and plain films of Gerardo Whitt. This shows good lordosis and no abnormal listhesis on dynamic range of motion. There is significant lateral recess stenosis at L5-S1 on right whichcorresponds to her symptoms. We will plan on re-exploration and decompression L5-S1 on right. OUR STITCHER OUR STITCHER documented in this encounter Plan of Treatment Not on file documented as of this encounter Visit Diagnoses Not on filedocumented in this encounter
--- OUTSIDE RECORDS SUMMARY | 2024-04-05 02:14 | XMS_ITS | Encounter Summary ---
Author Organization [facility] Address [address] [place] [address] Care Team Providers Care Automatic Corn Grinder Operator Name Role Phone Unavailable Primary Care Provider Unavailabl e Encounter Details Date Type Department Care Team (Late st Contact Info) Description 08/03/2022 Orders Only [facility] [address] [place] [address] Ernesto Byrd MD [address] [facility] [place] [address] Social History Tobacco Use Types [...] Refills Last Filled Start Date End Date tiZANidine (ZANAFLEX) 4 mg tabletIndications: Muscle Spasm Take 1 tablet (4 mg total) by mouth every 6 (six) hours as needed for muscle spasms 90 tablet 2 08/03/2022 3 oxyCODONE-acetamin ophen (Percocet) 5-325 mg per tabletIndications: Pain Take 1-2 tablets by mouth every 4 (four) hours as needed for pain for up to 14 days Maximum 6 tablets/day 90 tablet 08/10/2022 3 oxyCODONE-acetamin ophen (Percocet) 5-325 mg per tabletIndications: Pain Take 1-2 tablets by mouth every 4 (four) hours as needed for pain for up to 7 days Maximum 8 tabs/day 56 tablet 08/03/2022 3 documented in this encounter Plan of Treatment Not on file documented as of this encounter Visit Diagnoses Not on filedocumented in this encounter
--- OUTSIDE RECORDS SUMMARY | 2024-04-05 02:14 | XMS_ITS | Encounter Summary ---
Author Organization [facility] Address [address] [place] [address] Care Team Providers Care Partner Integration Planner Name Role Phone Unavailable Primary Care Provider Unavailabl e Reason for Visit * Reason Onset Date Comments a couple surgery questions post op 08/07/2022 Encounter Details Date Type Department Care Team (Late st Contact Info) Description 08/07/2022 Telephone [facility] [address] [place] [address] Elvira Brunson, RUTHY a couple surgery questions post op Social History Tobacco Use Types Packs/Day Years [...] Telephone Encounter - Elvira Brunson RN - 08/07/2022 12:16 PM CDT Patient calls just wanting to clarify some questions post op- she was wondering how long she would have to keep her restrictions (BLT) because she did not get to see Dr. Byrd when she left the hospital. I explained that we typically keep her restrictions for [address] Byrd gives the okay. No lifting anything heavier than 10lbs at this time. - pt verbalized understanding Pt also stated that she came home from the hospital on and on Sunday she tripped forward almost falling, but caught herself- she is starting to have pain in her back and right buttock down her posterior leg- which she had prior to surgery. Explained that leg pain will get better with time.She is taking her Oxycodone and Muscle relaxers as needed which seem to help. Patient also states that at the proximal end of her incision seems to be swollen and raised- no drainage or fevers. She may apply ice if needed- if swelling gets larger or does not get better with time or develops signs of infections to please give our office so we can evaluate. - pt verbalized understanding documented in this encounter Plan of Treatment Not on file documented as of this encounter Visit Diagnoses Not on filedocumented in this encounter
--- OUTSIDE RECORDS SUMMARY | 2024-04-05 02:14 | XMS_ITS | Encounter Summary ---
Author Organization [facility] Address [address] [place] [address] Care Team Providers Care Systems Technician Name Role Phone Unavailable Primary Care Provider Unavailabl e Encounter Details Date Type Department Care Team (Late st Contact Info) Description 07/26/2022 Telephone [facility] [address] [place] [address] Gena Paz, DENTAL PRACTICE MANAGER [address] [place] [address] Social History Tobacco Use Types Packs/Day Years [...] encounter Miscellaneous Notes * Telephone Encounter - Gena Paz NP - 07/26/2022 2:58 PM CDT Called patient to discuss surgical instructions. Patient is scheduled to have an right L5-S1 re-exploration and microdiskectomy with Dr. Ernesto Byrd on August 03, 2022. Diagnosis/code: M 51.17, lumbar radiculopathy. Patient aware to arrive at 530 a.m at [facility] for surgery at 730 am. We reviewed pre and postop care, hospitalization, follow-up appointment, meds, activity restrictions. Patient to see [facility] for preop testing and medical clearance. Patient has been instructed to hold anti-inflammatories including aspirin therapy 7 days prior to surgery. Patient is a nonsmoker. Patient does well with the use of Percocet and Zanaflex. 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 Patient has surgical folder and Antibacterial wipes per [facility]. Films are available in the [employer] system. Patient reports her phone was not working properly. She did receive her folder and will call pre testing to schedule an appointment. She also has further questions regarding her bill. Central billingoffice phone number given to the patient. We discussed risks, alternatives and benefits to surgery with risks including, but not limited to, bleeding, infection, coma, , heart attack, stroke, paralysis, loss of vision, CSF leak, spinal instability requiring future operations, failure to relieve symptoms, bowel & bladder, dysfunction and sexual dysfunction. Patient verbalizes understanding and voices no other concerns or questions at this time. documented in this encounter Plan of Treatment Not on file documented as of this encounter Visit Diagnoses Not on filedocumented in this encounter
--- OUTSIDE RECORDS SUMMARY | 2024-04-05 02:14 | XMS_ITS | Encounter Summary ---
Author Organization [facility] Address [address] [place] [address] Care Team Providers Care Animal Care Assistant Name Role Phone Travis Durand MD Primary Care Provider [phone] Reason for Visit * Reason Onset Date Comments Appointment Request 05/25/2022 Encounter Details Date Type Department Care Team (Late st Contact Info) Description 05/25/2022 Telephone [facility] Family Medicine at [address] [place] [address] Chris Bean MD [address] [place] [address] [address] [place] [address] Appointment Request Social History Tobacco [...] more points, staff should administer the PHQ-9) 1 05/16/2022 Comments Unknown Sex and Gender Information Value Date Recorded Sex Assigned at Not on file Legal Sex Female 1:49 PM CDT Gender Identity Female 06/30/2020 9:08 AM CDT Sexual Orientation Not on file documented as of this encounter Miscellaneous Notes * Telephone Encounter - Sonya Du - 05/26/2022 9:49 AM CST Call Back Caller???s Concern: Gerardo calling to follow up on how to be seen by Dr. Bean sooner so she can receive her medications for her headaches. Nothing available until 06.29.22. Warm transferred to [facility] on backline for further assistance with scheduling. Caller???s Call back #: [phone] Does message need to be routed? No T MAKER * Telephone Encounter - Hair White MA - 05/25/2022 12:06 PM CST Pt needs appt. Not seen since Refill for topiramate has been denied. T MAKER documented in this encounter Plan of Treatment Not on file documented as of this encounter Visit Diagnoses Diagnosis Migraine without aura and without status migrainosus, not intractable documented in this encounter Care Teams Animal Care Assistant Relationship Specialty Start Date End Date Travis Durand MD PCP - General Family Medicine 09/16/19 05/31/22 documented as of this encounter
--- OUTSIDE RECORDS SUMMARY | 2024-04-05 02:14 | XMS_ITS | Encounter Summary ---
Author Organization [facility] Address [address] [place] [address] Care Team Providers Care Back Hoe Operator Name Role Phone Unavailable Primary Care Provider Unavailabl e Encounter Details Date Type Department Care Team (Late st Contact Info) Description 08/28/2022 Telephone [facility] Family Medicine at [address] [place] [address] Rivas Salcedo [address] [place] [address] Social History Tobacco Use Types Packs/Day Years [...] in mouth and spit out. 280 mL 08/28/2022 10/27/2022 documented in this encounter Miscellaneous Notes * Telephone Encounter - Chris Bean MD - 08/28/2022 4:32 PM CDT Sent med for oral thrush * Telephone Encounter - Kyara Nj MA - 08/28/2022 9:09 AM CDT Pt sees Dr Bean Last ov 06/01 * Telephone Encounter - Zayra Georges - 08/28/2022 8:48 AM CDT Medical Question/Miscellaneous Caller???s Concern: Patient is calling stating that she was given prescriptions and now she has thrush. She is wanting to see if would consider sending in medication for her Caller???s Call back #: [phone] Does message need to be routed? Yes-Action Needed documented in this encounter Plan of Treatment Not on file documented as of this encounter Visit Diagnoses Not on filedocumented in this encounter
--- OUTSIDE RECORDS SUMMARY | 2024-04-05 02:14 | XMS_ITS | Encounter Summary ---
Author Organization [facility] Address [address] [facility] [address] [place] [address] Care Team Providers Care Motorcycle Subassembler Name Role Phone Travis Durand MD Primary Care Provider [phone] Reason for Visit * Reason Onset Date Comments Med Refill 05/08/2022 Encounter Details Date Type Department Care Team (Late st Contact Info) Description 05/08/2022 Telephone [facility] Family Medicine at [address] [place] [address] Chris Bean MD [address] [place] [address] [address] [place] [address] Med Refill Social History Tobacco [...] encounter Miscellaneous Notes * Telephone Encounter - Gaby Jurado - 05/10/2022 9:25 AM CST . RAMP AGENT * Telephone Encounter - Gaby Jurado - 05/10/2022 9:21 AM CST LM for patient to call office RAMP AGENT * Telephone Encounter - Gaby Jurado - 05/09/2022 10:12 AM CST LM for patient to call office. RAMP AGENT * Telephone Encounter - Gaby Jurado - 05/08/2022 4:54 PM CST LM for patient to call office RAMP AGENT * Telephone Encounter - Viky Crain RN - 05/08/2022 4:05 PM LEAD RAMP AGENT Topiramate refill Needs appointment, please schedule then I will send refill RAMP AGENT documented in this encounter Plan of Treatment Not on file documented as of this encounter Visit Diagnoses Not on filedocumented in this encounter Care Teams Motorcycle Subassembler Relationship Specialty Start Date End Date Travis Durand MD PCP - General Family Medicine 09/16/19 05/31/22 documented as of this encounter
--- OUTSIDE RECORDS SUMMARY | 2024-04-05 02:14 | XMS_ITS | Encounter Summary ---
Author Organization [facility] Healthcare Address [address] [place] [address] Care Team Providers Care Publication Editor Name Role Phone Travis Durand MD Primary Care Provider [phone] Encounter Details Date Type Department Care Team (Latest Contact Info) Description 12/22/2021 - 12/22/2021 11:59 PM CDT Hospital Encounter [facility] - Imaging [phone] Discharge Disposition: Discharge to home or self [...] this encounter Medications at Time of Discharge al & mag hydroxide simethicone-diphen hydramine-lidocain e-nystatin (MAGIC MOUTHWASH) suspension 9-3-4-1Indications :Stomatitis Swish and swallow 10 mL 4 (four) times a day 300 mL 09/05/2019 3 amitriptyline (ELAVIL) 25 mg tabletIndications: Primary insomnia TAKE 1 AND 1/2 TABLETS(37.5 MG) BY MOUTH EVERY NIGHT 45 tablet 3 09/26/2021 2 busPIRone (BUSPAR) 15 mg tabletIndications: Situational anxiety TAKE 1 TABLET(15 MG) BY MOUTH TWICE DAILY 60 tablet 3 08/23/2020 3 cetirizine (ZyrTEC) 10 mg tablet Take 10 mg by mouth daily 3 cyclobenzaprine (FLEXERIL) 10 mg tablet Take 10 mg by mouth 3 (three) times a day 11/26/2020 3 furosemide (LASIX) 20 mg tablet Take 1 tablet (20 mg total) by mouth daily 3 11/10/2018 3 HYDROcodone-acetam inophen (NORCO) 10-325 mg per tablet Take 1 tablet by mouth every 6 (six) hours as needed for pain 05/03/2020 3 ibuprofen (ADVIL,MOTRIN) 800 mg tablet Take by mouth every 6 (six) hours as needed 09/16/2020 3 linaCLOtide (LINZESS) 145 mcg capsuleIndications :Irritable bowel syndrome with constipation Take 1 capsule (145 mcg total) by mouth daily 30 capsule 5 07/19/2021 3 magnesium oxide (MAG-OX) 250 mg (150.8 mg elemental) tabletIndications: hypomagnesemia 250 mg daily 08/02/19 2 3 metoprolol XL (TOPROL-XL) 25 mg extended release tablet TK 1 T PO QD 07/23/2019 2 multivitamin capsule Take 1 capsule by mouth daily 3 potassium 99 mg tablet Take 1 tablet by mouth daily 3 topiramate (TOPAMAX) 100 mg tabletIndications: Migraine without aura and without status migrainosus, not intractable TAKE 1 TABLET(100 MG) BY MOUTH TWICE DAILY 60 tablet 1 11/23/2021 3 zinc 50 mg tablet Take 1 tablet by mouth daily 3 documented as of this encounter Discharge Disposition Disposition Code Departure Means Destination Discharge to home or self care documented in this encounter Plan of Treatment Not on file documented as of this encounter Procedures Procedure Name Priority Date/Time Associated Diagnosis Comments MRI TRANSFER OF OUTSIDE FILMS Routine 12/22/2021 12:00 AM CDT documented in this encounter Results * MRI Outside Reference (12/22/2021 12:00 AM CDT) Narrative RAD_PACS_OUTSIDE_FILM_[facility] - 07/19/2022 4:02 PM CDT This order has been auto-finalized and does not contain a result. us Ernesto Byrd MD IMG MRI PROCEDURES Final Resu lt RAD[facility]PACS[facility]OUTSIDE_FILM_[facility] documented in this encounter Visit Diagnoses Not on filedocumented in this encounter Care Teams Publication Editor Relationship Specialty Start Date End Date Travis Durand MD PCP - General Family Medicine 09/16/19 05/31/22 documented as of this encounter
--- OUTSIDE RECORDS SUMMARY | 2024-04-05 02:14 | XMS_ITS | Encounter Summary ---
Author Organization [facility] Address [address] [place] [address] Care Team Providers Care Cloth Laminating Supervisor Name Role Phone Travis Durand MD Primary Care Provider [phone] Encounter Details Date Type Department Care Team (Late st Contact Info) Description 05/26/2022 Telephone [facility] Family Medicine at [address] [place] [address] Chris Bean MD [address] [place] [address] [address] [place], [place] [id number] Social History Tobacco Use Types Packs/Day Years [...] Telephone Encounter - Hair White MA - 05/26/2022 2:16 PM CST Called pt, LVM asking pt to call back to verify dose of topiramate she is currently taking. 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
--- OUTSIDE RECORDS SUMMARY | 2024-04-05 02:14 | XMS_ITS | Encounter Summary ---
Author Organization [facility] Address [address] [place] [address] Care Team Providers Care Academic Coordinator Name Role Phone Travis Durand MD Primary Care Provider [phone] Encounter Details Date Type Department Care Team (Late st Contact Info) Description 05/17/2022 Documentation [facility] [address] [place] [address] Ernesto Byrd MD [address] [place] [address] Social History Tobacco Use Types [...] as of this encounter Progress Notes * Mayra Lopez - 05/17/2022 10:27 AM CST Patient will call back when ready to vickey surgery. 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
--- OUTSIDE RECORDS SUMMARY | 2024-04-05 02:14 | XMS_ITS | Encounter Summary ---
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 [M51.16] Procedures [facility] EXC DISC REEXPL 1 [facility] LUMBAR Re-exploration Right L5-S1 Decompression Laminectomy Referral ID Status Reason Start Date Expiration Date Visits Re quested Visits Authorized [id number] 1 1 Encounter Details Date Type Department Care Team (Late st Contact Info) Description 08/03/2022 7:24 AM CDT Anesthesia Event [facility] Operating Room [address] [place] [phone] John Sainz DO [address] [place] [address] Anesthesia Record Procedure Summary Procedure Name Responsible Anesthesiologist Anesthesia Start Time Anesthesia Stop Time Re-exploration Right L5-S1 Decompression Laminectomy (Right: Back) John Sainz DO 08/03/22 0724 08/03/22 0916 Events Date Time Event Comment 08/03/2022 0704 0724 An Start 0728 In Room 0729 An Start Data There is a del ay between Epic and data input from the monitoring systems. Timing between vital signs and events may not be accurate. 0734 An Induction The patient was reevaluated immediately before moderate or deep sedation use and before anesthesia induction. 0738 An Intubation 0738 Anesthesia Ready 0741 Position Supine Patient turn ed prone. Neck neutral throughout turn. Prone pillow adjusted so that no pressure was on eyes. Arms less than 90 degrees at shoulder and elbow (superman pose). Padding under arms and knees. Chest rolls and a roll under hips were placed and adjusted. ETT reverified as with intubation. BREASTS free 0749 an adelfo now 0755 Proc Start 0756 Incision Start 0859 Proc Fin 0902 an adelfo now .gsy 0906 An Extubation 0908 an stop data 0909 Out of Room 0916 Handoff to RN I completed my handoff to the receiving nurse during which we: 1. Patient identified 2. Responsible provider identified 3. Pertinent medical history reviewed 4. Procedure type and surgical course discussed 5. Intraoperative anesthetic management and any significant issues discussed 6. Expectations and concerns for postop period discussed 7. Questions solicited from receiving nurse 8. Patient disposition at the time of handoff: phase II 0916 An Stop Meds Name Total midazolam 2 mg fentaNYL 100 mcg lidocaine (CARDIAC) syringe 2 % 5 mL propofol 703.51 mg rocuronium 30 mg ondansetron 4 mg dexamethasone 4 mg/ml 8 mg ceFAZolin (ANCEF) 2,000 mg/20 mL in ster ile water (premix) 2,000 mg 2,000 mg ketamine 50 mg/5 mL (10 mg/mL) in NS 50 mg HYDROmorphone 2 mg/mL 1 mg lidocaine in dextrose 5% 2 g/250 mL (8 m g/mL) infusion (premix) 88.51 mg esmolol 10 mg labetalol 10 mg Lactated Ringer's (LR) infusion 1,200 mL * Agents Name O2 N2O Air Sevoflurane Inspired Sevoflurane * Blood No blood administrations on file. Lines, Drains, and Airways Type Details Placement Removal Peripheral IV Placement Date: 08/03/22; Placement Time: 623; Catheter Size: 18 G; Orientation: Left, Posterior; Location: Hand; Technique: Anatomical landmarks; Insertion Attempts: 1; Removal Date: 03/27/23; Removal Time: 124; Removal Reason: Discharge 08/03/22 0624 by Antonette Ortiz RN 03/27/23 1243 by Tala Ponce RN ETT Placement Date: 08/03/22; Placement Time: 08 (created via procedure documentation); Mask Ventilation: 1; Technique: Direct laryngoscopy; Type: ETT - single; Single Lumen Tube Size: 7 mm; Cuffed: Yes; Laryngoscope: Owens; Blade Size: 2; Location: Oral; Grade View: Grade I; Insertion Attempts: 1; Placement Verification: Auscultation, Capnometry; Airway Comment: Induction/intubation on transport stretcher. Patient preoxygenated, smooth intravenous induction, eyelids closed and secured with tape prior to intubation attempt, ETT inserted and passed through the vocal cords; intubation atraumatic and dentition unchanged from preoperative exam.; Removal Date: 08/03/22; Removal Time: 0908/03/22 0810 by Alfredo Prather CRNA 08/03/22 0906 by Alfredo Prather CRNA RETIRED Surgical Site 08/03/22; 0824; Ba ck; lumbar; 03/18/24 (Retired LDA, Removed/Completed by [employer] with LDA Utility); 1213 (Retired LDA, Removed/Completed by [employer] with LDA Utility) 08/03/22 0824 by Lucio Turk RN 03/18/24 1213 by Discharge Provider, Automatic documented in this encounter Social History Tobacco Use Types Packs/Day Years [...] on file documented as of this encounter OR Notes * Anesthesia Postprocedure Evaluation - John Sainz DO - 08/03/2022 12:04 PM CDT Patient: Gerardo Whitt Procedure Summary Date: 08/03/22 Room / [place] [facility] Anesthesia Start: 723 Anesthesia Stop: 915 Procedure: Re-exploration Right L5-S1 Decompression Laminectomy (Right: Back) Diagnosis: Intervertebral disc disorder with radiculopathy of lumbar region (Intervertebral disc disorder with radiculopathy of lumbar region [M51.16]) Surgeons: Ernesto Byrd MD Responsible Provider: John Sainz DO Anesthesia Type: general ASA Status: 2 Anesthesia Type: general Last vitals BP 106/79 Pulse 102 Temp 36.6 ??C (97.9 ??F) Resp 13 SpO2 94% Anesthesia Post Evaluation Patient location during evaluation: PACU Patient participation: complete - patient participated Level of consciousness: follows simple commands and fully awake Pain management: adequate Airway patency: adequate Cardiovascular status: acceptable and hemodynamically stable Respiratory status: acceptable Hydration status: acceptable Pt is: normothermic Nausea/Vomiting status: none No notable events documented. * Anesthesia Procedure Notes - Alfredo Prather CRNA - 08/03/2022 8:09 AM CDT Associated Order(s): Airway Airway Patient location: OR Urgency: elective Indications for airway management: anesthesia Difficult airway: no Staff: Placed by: CABLE STRETCHER AND TESTER: Alfredo Prather CRNA Emergent airway documentation: Risks and benefits discussed: yes Consent obtained: yes Consent given by: patient Airway prep: Preoxygenated: yes Patient position: sniffing Mask difficulty assessment: 1 - vent by mask Spontaneous ventilation during airway: absent Sedation level during airway: GA Final airway details: Final airway type: endotracheal airway Tube type: ETT ETT size: 7.0 mm Cuffed: yes Technique used for successful ETT placement: direct laryngoscopy Insertion site: oral Blade type: Owens Blade size: 2 Cormack-Lehane (direct): grade I - full view of glottis Cuff volume: 8 mL Cuff inflated with: air ETT to teeth: 20 cm Placement verified by: auscultation and CO2 detection Airway secured with: silk tape Number of attempts: 1no Additional comments: Induction/intubation on transport stretcher. Patient preoxygenated, smooth intravenous induction, eyelids closed and secured with tape prior to intubation attempt, ETT inserted and passed through thevocal cords; intubation atraumatic and dentition unchanged from preoperative exam. * Anesthesia Preprocedure Evaluation - John Sainz, - 08/01/2022 1:08 PM CDT Images from the original note were not included. Anesthesia Evaluation Gerardo Whitt is a 47 y.o. female who presents to Dr. Byrd for evaluation of lumbar radiculopathy by Travis Durand MD. the patient reports that she had a drop foot in 2013 and underwent a right L5-S1 microdiskectomy by Dr. Armstrong with improvement in pain. She recovered her strength over time.She reports that she is had progressive worsening of back pain and right leg pain over the past 2 years. She reports that the back pain extends down the back of her right leg to the ankle and bottom of her foot. She describes the pain as burning, stabbing and achy in nature. It is worsened with standing and walking. 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 She reports that lying down and medications help to relieve the pain. She is difficulty getting up in the morning. She reports neuropathy and weakness in her legs, right greater than left. She denies any falls. She reports that her quality of life is very poor at the moment due to her back and leg pain. She is here for preop evaluation prior to Re-exploration Right L5-S1 Decomression Laminectomy by Ernesto Byrd MD 08-03-2022 Pre-Op Diagnosis Codes: * Intervertebral disc disorder with radiculopathy of lumbar region [M51.16] HISTORY Past Medical History Information obtained from: patient and chart. Neurological + Psychiatric history - anxiety Cardiovascular + Hypertension + CHF - NYHA class: I. DIASTOLIC HF ONLY. CHF Etiology: non-ischemic. Diastolic function: stage I -impaired relaxation LVEF: 50-60%. Comments: Production Broacher is Dr. Garibay 11-15-2019 echocardiogram- LV chamber size normal. Global systolic function and contractility normal, no WMA, EF 55-60%. Grade1 DD Mild thickening of MV anterior leaflet, mild TR 07-02-2018 cardiac catheterization- 1. Left main medium size w/no significant disease 2. LAD medium size artery, no significant disease. small diagonal branch that has minimal irregularity, no obstructive lesion. 3. Left CX is normal size artery, no significant stenosis. 4. RCA dominant vessel, significant irregularity and significant tortuosity with possible spasm, but no obstructive lesions noted. ??LV gram showed normal size left ventricle, near normal left ventricular systolic function, EF about 50%. Respiratory + Asthma Dyspnea frequency: never. Rescue inhaler use: never. Hospitalizations/ER in the last year:0. + Current smoker - Counseled to abstain from smoking the day of surgery. Pertinent negatives: no history of oral steroid use and no prior intubation for respiratory failuredue to asthma Musculoskeletal/Pain + Headaches - migraine headaches. Review of Systems Pertinent negatives: SOB; recent cold/flu and chest pain Past Medical History: Diagnosis Date ??? Allergy-induced asthma ??? Anxiety ??? Current smoker ??? Diastolic heart failure, NYHA class 1 (CMS/HCC) ([facility]) ??? Hypertension ??? Intervertebral disc disorder with radiculopathy of lumbar region ??? Migraines Past Surgical History: Procedure Laterality Date ??? SECTION ??? HYSTERECTOMY ??? MICRODISCECTOMY LUMBAR 2014 L5-S1 ??? TONSILLECTOMY/ADENOIDECTOMY No Known Allergies Med List Status: Nurse Complete Set By: Nadia Herr RN at 08/01/2022 1:14 PM Taking? Last Dose Start Date End Date Provider albuterol HFA (ProAir HFA) 90 mcg/actuation inhaler -- 06/01/22 06/01/23 Chris Bean MD Inhale 2 puffs every 4 (four) hours as needed for wheezing or shortness of breath amitriptyline (ELAVIL) 25 mg tablet -- 06/01/22 08/30/22 Chris Bean MD Take 1.5 tablets (37.5 mg total) by mouth nightly furosemide (LASIX) 20 mg tablet -- 11/10/18 -- ProviderLaquita MD HYDROcodone-acetaminophen (NORCO) 10-325 mg per tablet -- 05/03/20 -- ProviderLaquita MD metoprolol XL (TOPROL-XL) 25 mg extended release tablet -- 06/01/22 11/28/22 Chris Bean MD Take 1 tablet (25 mg total) by mouth daily topiramate (TOPAMAX) 100 mg tablet -- 07/10/22 01/06/23 Chris Bean MD Take 1 tablet (100 mg total) by mouth 2 (two) times a day -- Patient not taking: -- -- -- -- Current Outpatient Medications: ??? albuterol HFA (ProAir HFA) 90 mcg/actuation inhaler ??? amitriptyline (ELAVIL) 25 mg tablet ??? furosemide (LASIX) 20 mg tablet ??? HYDROcodone-acetaminophen (NORCO) 10-325 mg per tablet ??? metoprolol XL (TOPROL-XL) 25 mg extended release tablet ??? topiramate (TOPAMAX) 100 mg tablet Social History Tobacco Use Smoking Status Every Day ??? Packs/day: 0.50 ??? Types: Cigarettes ??? Start date: 05/21/2000 Smokeless Tobacco Never Vaping Use Vaping Status Never Used Alcohol Use: Not At Risk (08/01/2022) AUDIT-C ??? Frequency of Alcohol Consumption: 4 or more times a week ??? Average Number of Drinks: 1 or 2 ??? Frequency of Binge Drinking: Never Substance and Sexual Activity Drug Use Not Currently Family History Problem Relation Age of Onset ??? Diabetes Mother ??? Dementia Father PAT Physical Exam Airway Exam: Mallampati: II Cervical ROM: FROM TM distance: 3 Cardiovascular Exam: Rate: regular Rhythm: regular Negative for peripheral edema Pulmonary Exam: LCTA, bilat EENT Exam: trachea midline (No bruits) Dental Exam: Appears intact Skin Exam: Skin is warm and dry. Turgor is normal. Abdominal exam: Bowel sounds are present. Current state: Patient's current state is cooperative. Additional comments: 47 y.o. female with no clinical risk factors per ACC/AHA guidelines and moderate functional capacity for low risk procedure Patient declined offer of second provider presence during PE Vitals: 08/01/22 1308 BP: 139/98 Pulse: 106 SpO2: 96% BMP Glucose: 08/01/2022: 105 mg/dL Calcium: 08/01/2022: 9.2 mg/dL Sodium: 08/01/2022: 137 mmol/L Potassium: 08/01/2022: 4.2 mmol/L CO2: 08/01/2022: 25 mmol/L Chloride: 08/01/2022: 94 mmol/L (L) BUN: 08/01/2022: 9 mg/dL Creatinine: 08/01/2022: 0.63 mg/dL STOP-Bang Total Score: 1 Martinez Activity Status Index Score: 24.2 DOS Physical Exam Medical history, medications, and allergies reviewed. Attestation: With today's edits, I endorse the findings of the anesthesia pre-evaluation assessment dated: 08/03/2022. Airway Exam: Mallampati: II Cervical ROM: FROM Cardiovascular Exam: Rate: regular Rhythm: regular Pulmonary Exam: (Non-labored breathing) Dental Exam: Appears intact Current state: Patient's current state is cooperative. Anesthesia Plan ASA 2 My patient is approved for the Anesthesia Controlled Medication protocol when under care of a CABLE STRETCHER AND TESTER Planned anesthesia: General Team communication plan: oral ET tube Induction: Induction: intravenous. Postoperative Plan: No postoperative mechanical ventilation intended. Patient's planned disposition post procedure is Outpatient. Informed Consent: Discussed plan with CABLE STRETCHER AND TESTER. Anesthesia plan and risks discussed with patient. Consent and Attending signature: I and/or my designee have discussed the anesthesia plan, benefits, possible alternatives, parental presence at time of induction (if indicated), and clinically relevant risks that may include dental injury, unintentional awareness, and/or other complications. The patient and/or parent/legal guardian understand, and agree to proceed. All questions answered. documented in this encounter Plan of Treatment Not on file documented as of this encounter Procedures Procedure Name Priority Date/Time Associated Diagnosis Comments SC AN PROCEDURE PLACEHOLDER Routine 08/03/2022 8:09 AM CDT SC AN ELECTIVE ENDOTRACHEAL AIRWAY Routine 08/03/2022 8:09 AM CDT documented in this encounter Results * SC AN ELECTIVE ENDOTRACHEAL AIRWAY, SC AN PROCEDURE PLACEHOLDER (08/03/2022 8:09 AM CDT) Narrative Alfredo Prather CRNA - 08/03/2022 8:09 AM CDT Alfredo Prather CRNA ? 08/03/2022 ??8:10 AM Airway Patient location: OR Urgency: elective Indications for airway management: anesthesia Difficult airway: no Staff: Placed by: CABLE STRETCHER AND TESTER: Alfredo Prather CRNA Emergent airway documentation: Risks and benefits discussed: yes Consent obtained: yes Consent given by: patient Airway prep: Preoxygenated: yes Patient position: sniffing Mask difficulty assessment: 1 - vent by mask Spontaneous ventilation during airway: absent Sedation level during airway: GA Final airway details: Final airway type: endotracheal airway Tube type: ETT ETT size: 7.0 mm Cuffed: yes Technique used for successful ETT placement: direct laryngoscopy Insertion site: oral Blade type: Owens Blade size: 2 Cormack-Lehane (direct): grade I - full view of glottis Cuff volume: 8 mL Cuff inflated with: air ETT to teeth: 20 cm Placement verified by: auscultation and CO2 detection Airway secured with: silk tape Number of attempts: 1no Additional comments: Induction/intubation on transport stretcher. Patient preoxygenated, smooth intravenous induction, eyelids closed and secured with tape prior to intubation attempt, ETT inserted and passed through the vocal cords; intubation atraumatic and dentition unchanged from preoperative exam. John Sainz DO ANESTHESIA ORDERABLES Final Result documented in this encounter Visit Diagnoses Not on filedocumented in this encounter Administered Medications Inactive Administered Medications - up to 3 most recent administrations Medication Order MAR Action Action Date Dose Rate Site ceFAZolin (ANCEF) 2,000 mg/20 mL in sterile water (premix) 2,000 mg 2,000 mg, intravenous, at 400 mL/hr, Administer over 3 Minutes, Once, On Teri 08/03/22 at 0630, For 1 dose, Pre-Op, Administer within 60 minutes of incision., Indications: Prophylaxis, SurgicalIndications:Prophylaxis, Surgical Given 08/03/2022 7:24 AM CDT 2,000 mg dexAMETHasone (DECADRON) 4 mg/mL injection intravenous, Administer over 2 Minutes, As needed, Starting on Teri 08/03/22 at 0734, Anesthesia Intra-op Given 08/03/2022 7:34 AM CDT 8 mg esmoloL (BREVIBLOC) injection intravenous, Administer over 1 Minutes, As needed, Starting on Teri 08/03/22 at 0812, Anesthesia Intra-op Given 08/03/2022 8:12 AM CDT 10 mg fentaNYL (SUBLIMAZE) preservative free injection intravenous, As needed, Starting on Teri 08/03/22 at 0734, Anesthesia Intra-op Given 08/03/2022 7:34 AM CDT 100 mcg HYDROmorphone (DILAUDID) injection intravenous, Administer over 2 Minutes, As needed, Starting on Teri 08/03/22 at 0749, Anesthesia Intra-op Given 08/03/2022 8:04 AM CDT 0.5 mg Given 08/03/2022 7:49 AM CDT 0.5 mg ketamine (KETALAR) 50 mg/5 mL (10 mg/mL) in sodium chloride 0.9% (premix) intravenous, As needed, Starting on Teri 08/03/22 at 0734, Anesthesia Intra-op Given 08/03/2022 7:34 AM CDT 50 mg labetaloL (NORMODYNE,TRANDATE) injection intravenous, As needed, Starting on Teri 08/03/22 at 0758, Anesthesia Intra-op Given 08/03/2022 7:58 AM CDT 10 mg Lactated Ringer's (LR) infusion 30 mL/hr, intravenous, Continuous, Starting on Teri 08/03/22 at 0630, Pre-Op, New Bag 08/03/2022 8:28 AM CDT Rate/Dose Verify 08/03/2022 7:24 AM CDT 30 mL/h r New Bag 08/03/2022 6:31 AM CDT 30 mL/hr 30 mL/hr lidocaine (cardiac) (XYLOCAINE) preservative free injection intravenous, As needed, Starting on Teri 08/03/22 at 0734, Anesthesia Intra-op, Indications: Ventricular ArrhythmiasIndications:Ve ntricular Arrhythmias Given 08/03/2022 7:34 AM CDT 5 mL lidocaine in dextrose 5% 2 g/250 mL (8 mg/mL) infusion (premix) 1.5 mg/kg/hr ? 50.1 kg [place] weight (9.3938 mL/hr, rounded to 9.39 mL/hr), 8 mg/mL, intravenous, Continuous, Starting on Teri 08/03/22 at 0800, Until Teri 08/03/22 at 1527, Indications: Pain, Call MD for symptoms of toxicity (ringing in ears, metallic taste, somnolence, numb lips) or lidocaine level greater than 5., RoutineIndications:Pain New Bag 08/03/2022 7:49 AM CDT 2 mg/kg/hr 12.525 mL/hr midazolam (VERSED) 1 mg/mL preservative free injection intravenous, Administer over 2 Minutes, As needed, Starting on Teri 08/03/22 at 0724, Anesthesia Intra-op Given 08/03/2022 7:24 AM CDT 2 mg ondansetron (ZOFRAN) injection intravenous, Administer over 2 Minutes, As needed, Starting on Teri 08/03/22 at 0734, Anesthesia Intra-op Given 08/03/2022 7:34 AM CDT 4 mg propofoL (DIPRIVAN) 10 mg/mL IV intravenous, As needed, Starting on Teri 08/03/22 at 0734, Anesthesia Intra-op Rate/Dose Change 08/03/2022 8:46 AM CDT 50 mcg/kg/min 18.66 mL/hr Rate/Dose Change 08/03/2022 8:31 AM CDT 100 mcg/kg/min 37. 32 mL/hr Rate/Dose Change 08/03/2022 8:16 AM CDT 125 mcg/kg/min 46. 65 mL/hr rocuronium (ZEMURON) injection intravenous, As needed, Starting on Teri 08/03/22 at 0734, Anesthesia Intra-op Given 08/03/2022 7:34 AM CDT 30 mg documented in this encounter
--- OUTSIDE RECORDS SUMMARY | 2024-04-05 02:14 | XMS_ITS | Encounter Summary ---
Author Organization [facility] Address [address] [facility] [address] [place] [address] Care Team Providers Care Radiology Administrator Name Role Phone Travis Durand MD Primary Care Provider [phone] Reason for Visit * Reason Onset Date Comments Appointment Request 02/15/2022 Encounter Details Date Type Department Care Team (Late st Contact Info) Description 02/15/2022 Telephone [facility] Family Medicine at [address] [place] [address] Travis Durand MD [address] [place] [address] [address] [place] [address] Appointment Request Social History Tobacco Use Types [...] encounter Miscellaneous Notes * Telephone Encounter - Marcelle Villa RN - 02/16/2022 2:32 PM CDT My chart msg sent to pt * Telephone Encounter - Kyara Nj MA - 02/15/2022 2:32 PM CDT History of reactive airway disease Ok to refer to bitumastic applier? * Telephone Encounter - Ivette Carroll MA - 02/15/2022 11:55 AM CDT Appointment Request What visit type does the patient need? Visit Type: Established Patient What is the reason for the visit? Med refills. What is the reason we were unable to schedule the appointment? Current appointment availability didnot meet patient's need. Out to Apr. If applicable, was a nurse practitioner or other provider offered? N/A Caller's Callback #: [phone] Additional Comments: patient needs a referral for an bitumastic applier Does message need to be routed? Yes-Action Needed documented in this encounter Plan of Treatment Not on file documented as of this encounter Visit Diagnoses Not on filedocumented in this encounter Care Teams Radiology Administrator Relationship Specialty Start Date End Date Travis Durand MD PCP - General Family Medicine 09/16/19 05/31/22 documented as of this encounter
--- OUTSIDE RECORDS SUMMARY | 2024-04-05 02:14 | XMS_ITS | Encounter Summary ---
Author Organization [facility] Address [address] [facility] [address] [place] [address] Care Team Providers Care Police Guard Name Role Phone Chris Bean MD Primary Care Provider [phone] Reason for Visit * Reason Onset Date Comments Appointment Request 08/29/2022 Encounter Details Date Type Department Care Team (Late st Contact Info) Description 08/29/2022 Telephone [facility] Family Medicine at [address] [place] [address] Rivas Salcedo [address] [place] [address] Appointment Request Social History Tobacco [...] * Telephone Encounter - Natali Eagle - 08/31/2022 9:07 AM CDT LM for patient to call office to set up a FU Appt from Surgery * Telephone Encounter - Gaby Juraod - 08/30/2022 8:58 AM CDT LM for patient to call office * Telephone Encounter - Gaby Jurado - 08/29/2022 2:47 PM CDT LM for patient to call office. * Telephone Encounter - Dina Preciado - 08/29/2022 2:32 PM CDT Appointment Request What visit type does the patient need? Visit Type: Established Patient What is the reason for the visit? Follow up after back surgery What is the reason we were unable to schedule the appointment? Current appointment availability didnot meet patient's need. Patient hoping to see KRISTAN Salcedo first opening . If applicable, were all members of the patient's PCP care team offered (e.g., nurse practioner(s), physician assistant professor of religion(s)) ? N/A, patient would like to see KRISTAN Elizabeth's Callback #: [phone] Additional Comments: None Does message need to be routed? Yes-Action Needed documented in this encounter Plan of Treatment Not on file documented as of this encounter Visit Diagnoses Not on filedocumented in this encounter Care Teams Police Guard Relationship Specialty Start Date End Date Chris Bean MD [address] [facility] [address] [place] [address] [place] [id number] PCP - General Family Medicine 09/08/22 documented as of this encounter
--- OUTSIDE RECORDS SUMMARY | 2024-04-05 02:14 | XMS_ITS | Encounter Summary ---
Author Organization [facility] Healthcare Address [address] [place] [address] Care Team Providers Care Paperhanger Supervisor Name Role Phone Travis Durand MD Primary Care Provider [phone] Encounter Details Date Type Department Care Team (Latest Contact Info) Description 11/18/2021 - 11/18/2021 11:59 PM CDT Hospital Encounter [facility] - Imaging [phone] Discharge Disposition: Discharge to home or self [...] hydroxide simethicone-diphen hydramine-lidocain e-nystatin (MAGIC MOUTHWASH) suspension 8-7-2-1Indications :Stomatitis Swish and swallow 10 mL 4 [...] 2 (two) times a day 60 tablet 5 07/19/2021 2 zinc 50 mg tablet Take 1 tablet by mouth daily 3 documented as of this encounter Discharge Disposition Disposition Code Departure Means Destination Discharge to home or self care documented in this encounter Plan of Treatment Not on file documented as of this encounter Procedures Procedure Name Priority Date/Time Associated Diagnosis Comments MRI TRANSFER OF OUTSIDE FILMS Routine 11/18/2021 12:00 AM CDT documented in this encounter Results * MRI Outside Reference (11/18/2021 12:00 AM CDT) Narrative RAD_PACS_OUTSIDE_FILM_[facility] - 07/19/2022 4:03 PM CDT This order has been auto-finalized and does not contain a result. us Ernesto Byrd MD IMG MRI PROCEDURES Final Resu lt RAD_PACS[facility]OUTSIDE_FILM_[facility] documented in this encounter Visit Diagnoses Not on filedocumented in this encounter Care Teams Paperhanger Supervisor Relationship Specialty Start Date End Date Travis Durand MD PCP - General Family Medicine 09/16/19 05/31/22 documented as of this encounter
--- OUTSIDE RECORDS SUMMARY | 2024-04-05 02:14 | XMS_ITS | Encounter Summary ---
Author Organization [facility] Healthcare Address [address] [place] [address] Care Team Providers Care Sequins Slinger Name Role Phone Unavailable Primary Care Provider Unavailabl e Encounter Details Date Type Department Care Team (Late st Contact Info) Description 07/27/2022 Telephone [facility] Operating Room [facility] [place] [place] [address] Denisha Hameed Social History Tobacco Use Types Packs/Day Years [...]
--- OUTSIDE RECORDS SUMMARY | 2024-04-05 02:14 | XMS_ITS | Encounter Summary ---
Author Organization [facility] Address [address] [facility] [address] [place] [address] Care Team Providers Care Loan Underwriter Name Role Phone Travis Durand MD Primary Care Provider [phone] Reason for Visit * Reason Onset Date Comments Med Refill 05/29/2022 Encounter Details Date Type Department Care Team (Late st Contact Info) Description 05/29/[address] [facility] Family Medicine at [place] [id number] [facility] [address] [place] [address] Travis Durand MD [address] [place] [address] [address] [place] [address] Med Refill Social History Tobacco Use Types [...] 2 (two) times a day 60 tablet 05/30/2022 06/01/2022 documented in this encounter Miscellaneous Notes * Telephone Encounter - Viky Crain RN - 05/30/2022 7:00 AM FIELD SERVICE COORDINATOR 30 day script sent. Patient must keep appointment on 06/01/2022 or we will no longer fill D SERVICE COORDINATOR * Telephone Encounter - Chris Bean MD - 05/29/2022 4:40 PM CST Yes to refill. D SERVICE COORDINATOR * Telephone Encounter - Viky Crain RN - 05/29/2022 1:42 PM FIELD SERVICE COORDINATOR We have been trying to reach patient since 05/08/2022 to schedule appointment, patient is now scheduled on 06/01/2022. Do you want to give 30 day script or wait till 06/01/2022 to send out when she is seen D SERVICE COORDINATOR * Telephone Encounter - Gaby Jurado - 05/29/2022 10:38 AM CST Refill on Topiramate D SERVICE COORDINATOR documented in this encounter Plan of Treatment Not on file documented as of this encounter Visit Diagnoses Diagnosis Migraine without aura and without status migrainosus, not intractable documented in this encounter Discontinued Medications Medication Sig Discontinue Reason Start Date End Da te topiramate (TOPAMAX) 100 mg tabletIndications:Migrain e without aura and without status migrainosus, not intractable TAKE 1 TABLET(100 MG) BY MOUTH TWICE DAILY Reorder 11/23/2021 05/30/2022 documented as of this encounter Care Teams Loan Underwriter Relationship Specialty Start Date End Date Travis Durand MD PCP - General Family Medicine 09/16/19 05/31/22 documented as of this encounter
--- OUTSIDE RECORDS SUMMARY | 2024-04-05 02:14 | XMS_ITS | Encounter Summary ---
Author Organization [facility] Healthcare Address [address] [place] [address] Care Team Providers Care Sports Equipment Repairer Name Role Phone Travis Durand MD Primary Care Provider [phone] Encounter Details Date Type Department Care Team (Latest Contact Info) Description 12/28/2021 - 12/28/2021 11:59 PM CDT Hospital Encounter [facility] - Imaging [phone] Discharge Disposition: Discharge to home or self [...] hydroxide simethicone-diphen hydramine-lidocain e-nystatin (MAGIC MOUTHWASH) suspension 8-2-5-1Indications :Stomatitis Swish and swallow 10 mL 4 [...] Procedure Name Priority Date/Time Associated Diagnosis Comments CT OUTSIDE REFERENCE Routine 12/28/2021 12:00 AM CDT documented in this encounter Results * CT Outside Reference (12/28/2021 12:00 AM CDT) Narrative RAD_PACS_OUTSIDE_FILM_[facility] - 07/19/2022 4:02 PM CDT This order has been auto-finalized and does not contain a result. us Ernesto Byrd MD IMG CT PROCEDURES Final Resul t RAD_PACS_OUTSIDE_FILM_[facility] documented in this encounter Visit Diagnoses Not on filedocumented in this encounter Care Teams Sports Equipment Repairer Relationship Specialty Start Date End Date Travis Durand MD PCP - General Family Medicine 09/16/19 05/31/22 documented as of this encounter
--- OUTSIDE RECORDS SUMMARY | 2024-04-05 02:14 | XMS_ITS | Encounter Summary ---
Author Organization [facility] Address [address] [address] Care Team Providers Care Sports Nutritionist Name Role Phone Travis Durand MD Primary Care Provider [phone] Reason for Referral * MRI/CAT/PET Scan (Routine) - Closed Specialty Diagnoses / Procedures Referred By Contac t Referred To Contact Radiology Procedures MRI Thoracic Spine WO Contrast Laquita Davis MD [address] [place] [address] Phone: tel: Referral ID Status Reason Start Date Expiration Date Visits Re quested Visits Authorized [id number] Closed 05/17/2022 06/16/2023 1 1 K PROCESSOR * MRI/CAT/PET Scan (Routine) - Closed Specialty Diagnoses / Procedures Referred By Contac t Referred To Contact Radiology Procedures MRI Lumbar Spine W WO Contrast Laquita Davis MD [address] [place] [address] Phone: tel: Referral ID Status Reason Start Date Expiration Date Visits Re quested Visits Authorized [id number] Closed 05/17/2022 06/16/2023 1 1 K PROCESSOR Reason for Visit * Reason Comments Back Pain Leg Pain Encounter Details Date Type Department Care Team (Latest Contact Info) Description 05/16/2022 10:30 AM CHECK PROCESSOR Office Visit [facility] [place] [address] [facility] [address] [place] [address] Ernesto Byrd MD [address] [facility] [address] [place] [address] Intervertebral disc disorder with radiculopathy of lumbar region (Primary Dx) Social History Tobacco Use Types [...] - Inhaled Oxygen Concentration - - Weight 65.3 kg (144 lb) 05/16/2022 10:49 AM CHECK PROCESSOR Height 154.9 cm (5' 1 ) 05/16/2022 10:49 AM CHECK PROCESSOR Body Mass Index 27.21 05/16/2022 10:49 AM CHECK PROCESSOR documented in this encounter Progress Notes * Myah Reinoso RN - 05/16/2022 10:30 AM CST RN - NEW PATIENT ENCOUNTER CC: Back Pain Onset Date: Symptoms: Smoking Status: Current Treating MD'S: Dr. Durand (PCP), Dr. Prasad (Pain Mgnt), Treatment: PT, Pain Mgnt 02/04- Jeb L5-S1 TF, add'l injection 04/05 L4-5 L5-S1, Tests: MRI, Work Status: Part- Time ROS Oswestry: PHQ: K PROCESSOR * Samantha Sotomayor I. - 05/16/2022 10:30 AM CST RN - NEW PATIENT ENCOUNTER CC: Back pain & right leg pain Onset Date: Drop foot in 2013. History of back pain but has since worsened the past 2 years. Symptoms: Back pain that radiates down posterior aspect of right leg. She has numb/ting on her right leg into her right foot. Describes the pain as burning, stabbing & achy in nature. Pain exacerbation with standing & walking. Lying down and medication helps relieve pain. Difficulty gettingup in the morning. Neuropathy & weakness in legs. R>L Denies falling, legs just give out on her. Wants her quality of life back, difficult to work due to pain. Smoking Status: smoker - 1/2 pack a day Treating MD'S: Dr. Travis Durand (PCP), Dr. Angela Prasad (Pain Mgnt), LAVELLE York (referring) Treatment: PT: last session was in the spring of last year; doing at home exercises with strengthening & condition as well as aqua therapy using her pool, Pain Mgnt: 01/25/22 Bilateral L5-S1 TF (lasted a week), add'l injection 04/04/21 RT L4-5; L5-S1 TF (lasted 3 weeks) & 10/09/16 RT L5-S1 TF, 2014 Discectomy (Dr. 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 Musculoskeletal: Positive for back pain. Neurological: Positive for tingling and weakness. Oswestry: 30 PHQ: 6 K PROCESSOR * Ernesto Byrd MD - 05/16/2022 10:30 AM CST Images from the original note were not included. CC: Back and right leg pain HPI Ms. Whitt is a 47 y.o. year old female referred for evaluation of lumbar radiculopathy by Travis Thayer MD. the patient reports that she had a drop foot in 2013 and underwent a right L5-S1 microdiskectomy by Dr. Armstrong with improvement in pain. She recovered her strength over time. She reports that she is had progressive worsening [...] difficulty getting up in the morning. She reportsneuropathy and weakness in her legs, right greater than left. She denies any falls. She reports that her quality of life is very poor at the moment due to her back and leg pain. Smoking Status: smoker - 1/2 pack a day Treating MD'S: Dr. Travis Durand (PCP), Dr. Angela Prasad (Pain Mgnt), ALVELLE York (referring) Treatment: PT: last session was in the spring of last year; doing at home exercises with strengthening & condition as well as aqua therapy using her pool, Pain Mgnt: 01/25/22 Bilateral L5-S1 TF (lasted a week), add'l injection 04/04/21 RT L4-5; L5-S1 TF (lasted 3 weeks) & 10/09/16 RT L5-S1 TF, 2014 Discectomy (Dr. 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 Musculoskeletal: Positive for back pain. Neurological: Positive for tingling and weakness. Allergies: Allergies Allergen Reactions Penicillin G Swelling Past Medical History: Diagnosis Date Anxiety Headache Hypertension Radicular leg pain Past Surgical History: Procedure Laterality Date BACK SURGERY SECTION HYSTERECTOMY TONSILLECTOMY/ADENOIDECTOMY Physical Exam: Ht 154.9 cm (5' 1 ) Wt 65.3 kg (144 lb) BMI 27.21 kg/m?? Pain Location: Back (Lumbar) Pain Descriptors: Aching;Burning;Pins and needles;Tingling;Numbness Pain Interventions: Medication (See MAR);Physical Therapy;Cold pack;TENS;Rest Oswestry: 30 PHQ: 6 Neurological The patient is a well-developed, well-nourished female in no acute distress. She has grossly intact CN II-XII. The patient has 10?? of extension, 80?? of flexion, 80?? of rotation of the right, and 80?? of rotation to the left of the cervical spine. There is 5?? of extension and 90?? of flexion of the lumbar spine. The patient has good range of motion of the bilateral shoulders, elbows, hips and knees. The patient has grossly normal muscle bulk, tone and strength throughout. Sensation is grossly intact to lighttouch. The patient has a negative BAY sign bilaterally. The patient has a negative piriformis stretch bilaterally. The patient has a negative straight leg raise bilaterally. The patient is able to walk on tiptoes and heels. Toes are downgoing. The patient has a normal gait and normal tandem gait. Review of Xrays: MRI of the lumbar spine shows evidence of laminotomy at L5-S1 on the right. There seems to be a bulge off of the facet joint at L5-S1 on the right with compression of the traversing S1 nerve root. There was scar tissue in this region. Diagnoses and all orders for this visit: Intervertebral disc disorder with radiculopathy of lumbar region (Primary) Assessment & Plan: Ms. Whitt has symptoms that are consistent [...] spine films that she recently obtained to ruleout instability. We discussed that she may benefit from a re-exploration and decompression at L5-P0jjldt her symptoms, but the amount improvement that she would see postoperatively is uncertain. We will speak to her by phone once the films have been reviewed. This document was created using speech voice recognition software and has not been thoroughly reviewed. Grammatical errors, random word insertions, pronoun errors and incomplete sentences are an occasional consequence of this system due to software limitations, ambient noise and hardware issues. Any formal questions or concerns about content, text or information contained within the body of this dictation should be directly addressed to the provider's office for clarification. Ernesto Byrd MD, FAANS K PROCESSOR documented in this encounter Miscellaneous Notes * Assessment & Plan Note - Ernesto Byrd MD - 05/16/2022 4:49 PM CHECK PROCESSOR Associated Problem(s): Intervertebral disc disorder with radiculopathy of lumbar region Ms. Whitt has symptoms that are consistent [...] spine films that she recently obtained to ruleout instability. We discussed that she may benefit from a re-exploration and decompression at L5-U5kakuq her symptoms, but the amount improvement that she would see postoperatively is uncertain. We will speak to her by phone once the films have been reviewed. K PROCESSOR documented in this encounter Plan of Treatment Not on file documented as of this encounter Procedures Procedure Name Priority Date/Time Associated Diagnosis Comments MRI THORACIC SPINE WO CONTRAST Schedule Routine, Read Routine (OP Routine) 12/22/2021 MRI LUMBAR SPINE W WO CONTRAST Schedule Routine, Read Routine (OP Routine) 11/18/2021 documented in this encounter Results * MRI Thoracic Spine WO Contrast (12/22/2021) Anatomical Region Laterality Modality Spine N/A Magnetic Resonan ce us Historical Provider MD MURO MRI PROCEDURES Final Result * MRI Lumbar Spine W WO Contrast (11/18/2021) Anatomical Region Laterality Modality Spine N/A Magnetic Resonan ce us Historical Provider MD MURO MRI PROCEDURES Final Result documented in this encounter Visit Diagnoses Diagnosis Intervertebral disc disorder with radiculopathy of lumbar region- Primary documented in this encounter Care Teams Sports Nutritionist Relationship Specialty Start Date End Date Travis Durand MD PCP - General Family Medicine 09/16/19 05/31/22 documented as of this encounter
--- OUTSIDE RECORDS SUMMARY | 2024-04-05 02:14 | XMS_ITS | Encounter Summary ---
Author Organization [facility] Healthcare Address [address] [place] [address] Care Team Providers Care Compensation Coordinator Name Role Phone Unavailable Primary Care Provider Unavailabl e Encounter Details Date Type Department Care Team (Late st Contact Info) Description 07/26/2022 Telephone [facility] Operating Room [facility] [place] [address] Denisha Hameed Social History Tobacco [...]
--- OUTSIDE RECORDS SUMMARY | 2024-04-05 02:14 | XMS_ITS | Encounter Summary ---
Author Organization [facility] Address [address] [facility] [address] [place] [address] Care Team Providers Care Credit Operations Specialist Name Role Phone Unavailable Primary Care Provider Unavailabl e Encounter Details Date Type Department Care Team (Late st Contact Info) Description 08/22/2022 Telephone [facility] [place] [address] [facility] [address] [place] [address] Gena Paz, PROCESSING SUPERVISOR [address] [facility] [address] [place] [address] Social History Tobacco Use Types Packs/Day Years [...] Refills Last Filled Start Date End Date methylPREDNISolone (MEDROL DOSEPACK) 4 mg DosepackIndications :Intervertebral disc disorder with radiculopathy of lumbar region Take as directed on package 1 packet 08/22/2022 3 documented in this encounter Miscellaneous Notes * Telephone Encounter - Gena Paz NP - 08/22/2022 2:39 PM CDT Patient calls and states that she weaned off her pain medications too early and now she feels miserable. She denies any pain down her right lower extremity but she is feeling it primarily in her low back. Patient reports she has quite a bit of tightness in her back. She is returned to taking her hydrocodone 10-325 up to 4 a day along with the muscle relaxants. Will call in a Medrol Dosepak to help with inflammatory issues. Instructed the patient to take the pain medication and muscle relaxant regularly over the next 2 weeks to kind of get her back on track. Explained to the patient we do not start physical therapy until she returns to see us at her 6 week postop adelfo. Patient verbalizes understanding. documented in this encounter Plan of Treatment Not on file documented as of this encounter Visit Diagnoses Diagnosis Intervertebral disc disorder with radiculopathy of lumbar region- Primary documented in this encounter
--- OUTSIDE RECORDS SUMMARY | 2024-04-05 02:14 | XMS_ITS | Encounter Summary ---
Author Organization [facility] Address [address] [facility] [address] [place] [address] Care Team Providers Care Edge Dyer Name Role Phone Unavailable Primary Care Provider Unavailabl e Reason for Visit * Reason Onset Date Comments needs appt 06/01/2022 Encounter Details Date Type Department Care Team (Late st Contact Info) Description 06/01/[address] [facility] Family Medicine at [address] [place] [address] Chris Bean MD [address] [place] [address] [address] [place] [address] needs appt Social History Tobacco Use Types Packs/Day Years [...] encounter Miscellaneous Notes * Telephone Encounter - Yaneli Cameron - 06/01/2022 3:29 PM CST Lvm for patient to call for an appt ----- Message from Chris Bean MD sent at 06/01/2022 3:14 PM CORE STRIPPER ----- Regarding: Need annual physical in 3 months Need annual physical in 3 months STRIPPER STRIPPER documented in this encounter Plan of Treatment Not on file documented as of this encounter Visit Diagnoses Not on filedocumented in this encounter
--- OUTSIDE RECORDS SUMMARY | 2024-04-05 02:14 | XMS_ITS | Encounter Summary ---
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 [M51.16] Procedures [facility] EXC DISC REEXPL 1 [facility] LUMBAR Re-exploration Right L5-S1 Decompression Laminectomy Referral ID Status Reason Start Date Expiration Date Visits Re quested Visits Authorized [id number] 1 1 Encounter Details Date Type Department Care Team (Latest Contact Info) Description 08/03/2022 5:24 AM CDT - 08/03/2022 11:27 AM CDT Hospital Encounter [facility] Operating Room [address] [place] [address] Ernesto Byrd MD [address] [facility] [address] [place] [address] Discharge Disposition: Discharge to home or self [...] Sign Reading Time Taken Comments Blood Pressure 106/79 08/03/2022 9:50 AM CDT Pulse 102 08/03/2022 9:50 AM CDT Temperature 36.6 ??C (97.9 ??F) 08/03/2022 6:20 AM CD T Respiratory Rate 13 08/03/2022 9:50 AM CDT Oxygen Saturation 94% 08/03/2022 9:50 AM CDT Inhaled Oxygen Concentration - - Weight 62.2 kg (137 lb 2 oz) 08/03/2022 6:19 AM CDT Height 157.5 cm (5' 2 ) 08/03/2022 6:19 AM CDT Body Mass Index 25.08 08/03/2022 6:19 AM CDT documented in this encounter Discharge Instructions * Attachments The following attachments cannot be sent through Care Everywhere. * Anxiolysis in Adults (AfterCare(R) Instructions(ER/ED)) (Urdu) documented in this encounter Medications at Time of Discharge oxyCODONE-acetami nophen (Percocet) 5-325 mg per tabletIndications :Pain Take 1-2 tablets by mouth every 4 (four) hours as needed for pain for up to 7 days Maximum 8 tabs/day 56 tablet 08/03/2022 3 oxyCODONE-acetami nophen (Percocet) 5-325 mg per tabletIndications :Pain Take 1-2 tablets by mouth every 4 (four) hours as needed for pain for up to 14 days Maximum 6 tablets/day 90 tablet 08/10/2022 3 albuterol HFA (ProAir HFA) 90 mcg/actuation inhaler Inhale 2 puffs every 4 (four) hours as needed for wheezing or shortness of breath 3 each 4 06/01/2022 4 amitriptyline (ELAVIL) 25 mg tabletIndications :Primary insomnia Take 1.5 tablets (37.5 mg total) by mouth nightly 135 tablet 06/01/2022 3 furosemide (LASIX) 20 mg tablet Take 1 tablet (20 mg total) by mouth daily 3 11/10/2018 3 metoprolol XL (TOPROL-XL) 25 mg extended release tabletIndications :Benign essential HTN Take 1 tablet (25 mg total) by mouth daily 90 tablet 1 06/01/2022 3 tiZANidine (ZANAFLEX) 4 mg tabletIndications :Muscle Spasm Take 1 tablet (4 mg total) by mouth every 6 (six) hours as needed for muscle spasms 90 tablet 2 08/03/2022 3 topiramate (TOPAMAX) 100 mg tabletIndications :Migraine without aura and without status migrainosus, not intractable Take 1 tablet (100 mg total) by mouth 2 (two) times a day 180 tablet 1 07/10/2022 3 documented as of this encounter Discharge Disposition Disposition Code Departure Means Destination Comment s Discharge to home or self care documented in this encounter H&P Notes * Ernesto Byrd MD - 08/03/2022 7:21 AM CDT I have reviewed the H&P, examined the patient, and endorse the findings as written. Plan of Care : Based on the above findings, I consider Gerardo Whitt to be an acceptable risk for : Procedure(s): Re-exploration Right L5-S1 Decompression Laminectomy Source Note - Jeannette Portillo, VIMAL - 08/01/2022 1:08 PM CDT Images from [...] stage I -impaired relaxation LVEF: 50-60%. 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 Garibay 11-15-2019 echocardiogram- LV chamber [...] heart failure, NYHA class 1 (CMS/HCC) ([facility]) ??? Hypertension ??? Intervertebral disc disorder [...] 1 Martinez Activity Status Index Score: 24.2 documented in this encounter Miscellaneous Notes * Op Note - Ernesto Byrd MD - 08/03/2022 7:21 AM CDT Images from the original note were not included. Date of Surgery: Attending: Office Phone: Office Fax: 08/03/2022 Ernesto Byrd MD, FAANS [facility] Operative Report Surgeon: Ernesto Byrd MD, FAANS Preoperative Diagnosis: Lumbar radiculopathy S/p prior right L5S1 microdiscectomy Postoperative Diagnosis: Lumbar radiculopathy S/p prior right L5S1 microdiscectomy Name of Procedure: Right L5-S1 reexploration and decompression.. Use of operative microscope for microdissection. Anesthesia: General Endotracheal Anesthesia Estimated Blood Loss: No blood loss documented. Intraoperative Fluids: See anesthesia note Specimens: None Blood/Blood Products Transfused: None Complications: None Condition on Discharge from the operating room was: Stable Operative Findings: Recurrent disc herniation with compression of the traversing S1 nerve root. Indications: Ms. Whitt is a 47 y.o. female with the above noted diagnosis unresponsive to conservative treatment. After careful review of the history, physical exam and radiographic findings, we felt that the she would benefit from lumbar microdiscectomy. Risks, alternatives and benefits of the procedure including, but not limited to, bleeding, infection, coma, , heart attack, stroke, paralysis, loss ofvision, CSF leak, spinal instability requiring future operations, failure to relieve symptoms, bowel and bladder dysfunction, and sexual dysfunction were discussed with the patient. She understands and wishes to proceed. Procedure: After identifying, marking and examining Ms. Whitt, she was brought to the operating room on an ORgurney. Sequential Compression Devices were placed on the lower legs for DVT prophylaxis. The patient was intubated by anesthesia and general endotracheal anesthesia was induced. The patient was turned onto a Joaquim frame on a Skytron table. The arms were placed on cushioned arm rests. All surfaceswere padded and straps were used to secure the patient. Intraoperative xray was used for localilzation through the case. Intraoperative neuromonitoring was ordered for safety feedback during the operation. The interpreting physician, Dr. Joce Townsend, was available by means of real time continuous bi-directional remote audio/visual communication between the pharmacy picking technician, reader and myself throughout the entire procedure. Monitoring modalities included sEMG, TOF, SSEP (upper), SSEP (lower). Palpation of the low back was used to pick a midline entry point The lower back was prepped and draped in the usual fashion. After a time-out was completed, the skin was infiltrated with half percent marcaine with epinephrine. A #10 blade was used to make a linearmidline incision . Bleeding throughout the case was controlled with bipolar and monopolar electrocautery. A sharp dissection was carried down to the fascia. This was incised and a blunt dissection between the muscles down to the facet was performed. Self retaining retractors were placed and the operative microscope was brought into the field and used for microdissection up until closing. The correct level was verified with intraoperative xray. A previous laminotomy was expanded at L5 and S1 on the right and a partial medial facetectomy was performed. Dissection was made through thick, tenacious scar tissue and the thecal sac and nerve root were retracted medially. The disc herniation was exposed. All loose disc material was removed. Down-biting curettes were used to free the disc herniation from surrounding tissue and pituitary rongeurs were used to remove the disc herniation. A hole was found in the annulus and all loose disc material immediately beneath this hole was removed with curettesand pituitary rongeurs. After decompression, the course of the S1 nerve root was palpated with a Turner and found to be widely decompressed along its entire course out into the foramen. The wound was copiously irrigated with antibiotic containing solution and then closed in layers. Dermabond was used to seal the skin. The patient tolerated the procedure well without complication andwas discharged in stable condition to the Post Anesthesia Care Unit with an unchanged neurological exam. Ernesto Avilez MD, was present throughout and performed the entire procedure. Ernesto Byrd MD Date: 08/03/2022 Time: 7:21 AM documented in this encounter Plan of Treatment Not on file documented as of this encounter Procedures Procedure Name Priority Date/Time Associated Diagnosis Comments XR SPINE LUMBAR 1 VIEW IP Routine 08/03/2022 8:09 AM CDT DECOMPRESSION LUMBAR LAMINECTOMY 08/03/2022 7:28 AM CDT Intervertebral disc disorder with radiculopathy of lumbar region documented in this encounter Results * XR Spine Lumbar 1 View (08/03/2022 8:09 AM CDT) Anatomical Region Laterality Modality Spine N/A Computed Radiogr aphy 08/03/2022 9:19 AM CDT Impressions 08/03/2022 9:19 AM CDT FINDINGS/IMPRESSION: Single lateral intraoperative radiograph of the lumbar spine submitted for review. Surgical instrumentation seen overlying the posterior elements at L5-S1. Mild retrolisthesis L5 on S1. ??Degenerative changes of the lumbar spine with loss of disc, degenerative endplate changes, and tiny osteophytes most significant at L4-L5 and L5-S1. ??Multilevel degenerative facet arthrosis most significant at L5-S1. For detailed findings, see operative report. Electronically signed by: Sanjeev Olmos M.D. Narrative 08/03/2022 9:19 AM CDT EXAM: XR SPINE LUMBAR 1 VIEW INDICATION: decompression COMPARISON: CT 12/28/2021 Procedure Note Sanjeev Olmos MD - 08/03/2022 EXAM: XR SPINE LUMBAR 1 VIEW INDICATION: decompression COMPARISON: CT 12/28/2021 IMPRESSION: FINDINGS/IMPRESSION: Single lateral intraoperative radiograph of the lumbar spine submitted for review. Surgical instrumentation seen overlying the posterior elements at L5-S1. Mild retrolisthesis L5 on S1. Degenerative changes of the lumbar spine with loss of disc, degenerative endplate changes, and tiny osteophytes most significant at L4-L5 and L5-S1. Multilevel degenerative facet arthrosis most significant at L5-S1. For detailed findings, see operative report. Electronically signed by: Sanjeev Olmos M.D. Ernesto Byrd MD IMG XR PROCEDURES Final Resul t documented in this encounter Visit Diagnoses Diagnosis Intervertebral disc disorder with radiculopathy of lumbar region- Primary documented in this encounter Admitting Diagnoses Diagnosis Intervertebral disc disorder with radiculopathy of lumbar region documented in this encounter Administered Medications Inactive Administered Medications - up to 3 most recent administrations Medication Order MAR Action Action Date Dose Rate Site acetaminophen (TYLENOL) tablet 1,000 mg 1,000 mg, oral, Once, On Teri 08/03/22 at 0630, For 1 dose, Pre-Op, Indications: Pre-Emptive AnalgesiaIndications:Pre-Emptive Analgesia Given 08/03/2022 6:27 AM CDT 1,000 mg albuterol 2.5 mg /3 mL (0.083 %) nebulizer solution 2.5 mg 2.5 mg, nebulization, As needed, wheezing, Starting on Teri 08/03/22 at 0913, For 2 doses, Phase I, Notify Anesthesiologist. , Indications: Bronchospastic Pulmonary DiseaseIndications:Bronchospastic Pulmonary Disease Carrier Fluids for Secondary Infusion - 0.9% Sodium Chloride 30 mL, intravenous, As needed, For priming tubing and/or flushing, Starting on Teri 08/03/22 at 0557, Pre-Op, 0-250 ml/hr to flush line after IV infusions when no maintenance IV ordered. Infuse 30mL at the same rate as the secondary infusion. Run as primary IV, not intended for KVO. dextrose (D10W) 10% bolus 250 mL 250 mL, intravenous, at 1,000 mL/hr, Administer over 15 Minutes, Once as needed, blood glucose less than 70 mg/dL, Starting on Teri 08/03/22 at 0724, Pre-Op, Indications: HypoglycemiaIndications:Hypoglyce lyubov dimenhyDRINATE (DRAMAMINE) tablet 25 mg 25 mg, oral, Once, On Teri 08/03/22 at 0630, For 1 dose, Pre-Op, Indications: Prevention of Nausea and VomitingIndications:Prevention of Nausea and Vomiting Given 08/03/2022 6:27 AM CDT 25 mg diphenhydrAMINE (BENADRYL) injection 12.5 mg 12.5 mg, intravenous, Every 15 min PRN, itching, Starting on Teri 08/03/22 at 0913, For 2 doses, Phase I, Max cumulative dose 50 mg., Indications: ItchingIndications:Itching fentaNYL (SUBLIMAZE) preservative free injection 25 mcg 25 mcg, intravenous, Every 5 min PRN, uncontrolled pain on PACU admission, Starting on Teri 08/03/22 at 0913, For 4 doses, Phase I, Maximum dosage of fentanyl of 100 mcg for arrival to PACU, then proceed to PACU 1st line analgesic., Indications: PainIndications:Pain gabapentin (NEURONTIN) capsule 300 mg 300 mg, oral, Once, On Teri 08/03/22 at 0630, For 1 dose, Pre-Op, Indications: Pre-Emptive AnalgesiaIndications:Pre-Emptive Analgesia Given 08/03/2022 6:27 AM CDT 300 mg haloperidol (HALDOL) injection 1 mg 1 mg, intravenous, Administer over 5 Minutes, Once as needed, nausea, vomiting, Starting on Teri 08/03/22 at 0913, For 1 dose, Phase I, If post-operative nausea and/or vomiting is not relieved by ondansetron within 30 minutes or if more than 8mg of ondansetron have been given within the last 6 hours. HYDROmorphone (DILAUDID) injection 0.2 mg 0.2 mg, intravenous, Administer over 2 Minutes, Every 10 min PRN, 1st line for pain, Starting on Teri 08/03/22 at 0913, For 10 doses, Phase I, Switch to 2nd line analgesic order if pain is uncontrolled or increasing after 1 dose. Notify Anesthesiologist if total PACU dose reaches 2 mg and pain score 5/10 or more., Indications: PainIndications:Pain HYDROmorphone (DILAUDID) injection 0.4 mg 0.4 mg, intravenous, Administer over 2 Minutes, Every 10 min PRN, 2nd line for pain, Starting on Teri 08/03/22 at 0913, For 5 doses, Phase I, May administer 10 mintes after 1st dose of 1st line analgesic agent for uncontrolled or increasing pain. Revert to 1st line dose if POSS of 3. Notify Anesthesiologist if total PACU dose reaches 2 mg and pain score 5/10 or more., Indications: PainIndications:Pain labetaloL (NORMODYNE,TRANDATE) injection 5 mg 5 mg, intravenous, at 30 mL/hr, Administer over 2 Minutes, Every 10 min PRN, high blood pressure, Starting on Teri 08/03/22 at 0913, For 4 doses, Phase I, Max cumulative dose 20 mg. Dose if systolic blood pressure greater than 180 AND heart rate greater than 70. Lactated Ringer's (LR) infusion 30 mL/hr, intravenous, Continuous, Starting on Teri 08/03/22 at 0630, Pre-Op, New Bag 08/03/2022 8:28 AM CDT Rate/Dose Verify 08/03/2022 7:24 AM CDT 30 mL/h r New Bag 08/03/2022 6:31 AM CDT 30 mL/hr 30 mL/hr lidocaine in dextrose 5% 2 g/250 mL (8 mg/mL) infusion (premix) 1.5 mg/kg/hr ? 50.1 kg [place] weight (9.3938 mL/hr, rounded to 9.39 mL/hr), 8 mg/mL, intravenous, Continuous, Starting on Teri 08/03/22 at 0800, Until Teri 08/03/22 at 1527, Indications: Pain, Call MD for symptoms of toxicity (ringing in ears, metallic taste, somnolence, numb lips) or lidocaine level greater than 5., RoutineIndications:Pain New Bag 08/03/2022 7:49 AM CDT 2 mg/kg/hr 12.525 mL/hr lidocaine PF (XYLOCAINE) 10 mg/mL (1 %) preservative free injection 2-10 mg 2-10 mg (0.2-1 mL), other, Once as needed, pain with IV placement, Starting on Teri 08/03/22 at 0557, For 1 dose, Pre-Op, Administer volume needed to infiltrate IV site. meperidine (DEMEROL) preservative free injection 12.5 mg 12.5 mg, intravenous, Administer over 5 Minutes, Every 10 min PRN, shivering, Starting on Teri 08/03/22 at 0913, For 2 doses, Phase I, Max cumulative dose 25 mg., Indications: ShiveringIndications:Shivering naloxone (NARCAN) 0.4 mg/mL injection 0.04-0.4 mg 0.04-0.4 mg, intravenous, Once as needed, other, excessive sedation/respiratory depression, Starting on Teri 08/03/22 at 0913, For 1 dose, Phase I, BEFORE ADMINISTERING - call anesthesiologist to verify administration. Then, dilute 0.4 mg with 9 mL NS (final concentration 0.04 mg/mL). For respiratory depression (respiratory rate less than 6), administer 0.4 mg IVP over 30 seconds. For excessive sedation administer 0.04 mg (1 mL) every 1 minute until desired level of alertness. For IV, administer over 30 seconds., Indications: Opioid ToxicityIndications:Opioid Toxicity ondansetron (ZOFRAN) injection 4 mg 4 mg, intravenous, Administer over 2 Minutes, Once as needed, nausea, vomiting, Starting on Teri 08/03/22 at 0913, For 1 dose, Phase I, Proceed to haloperidol if more than 8 mg of ondansetron have been given within the last 6 hours., Indications: Prevention of Post-Operative Nausea and VomitingIndications:Prevention of Post-Operative Nausea and Vomiting oxyCODONE (ROXICODONE) tablet 5 mg 5 mg, oral, As needed, 1st line for pain, Starting on Teri 08/03/22 at 0913, For 2 doses, Phase I, 1st ORAL choice for pain, when the patient is able to tolerate PO medications. May repeat in 1 hour if pain is uncontrolled or increasing after 1st dose., Indications: PainIndications:Pain Given 08/03/2022 10:15 AM CDT 5 mg racepinephrine (ASTHMANEFRIN) 2.25 % nebulizer solution 0.5 mL 0.5 mL, nebulization, As needed, other, stridor, Starting on Teri 08/03/22 at 0913, For 2 doses, Phase I, Notify Anesthesiologist. , Indications: WheezingIndications:Wheezing sodium chloride 0.9% flush 0.5-20 mL 0.5-20 mL, intra-catheter, As needed, line care, Starting on Teri 08/03/22 at 0557, Pre-Op, Flush volume based on line type and size. Flush before and after each use. documented in this encounter Discontinued Medications Medication Sig Discontinue Reason Start Date End Da te HYDROcodone-acetaminop hen (NORCO) 10-325 mg per tablet Take 1 tablet by mouth every 6 (six) hours as needed for pain Stop Taking at Discharge 05/03/2020 08/03/2022 documented as of this encounter Active and Recently Administered Medications Times are shown in CDT. Scheduled Medication Order 08/01/2022 08/02/2022 08/03/2022 acetaminophen (TYLENOL) tablet 1,000 mg (COMPLETED) 1,000 mg, oral, Once, On Teri 08/03/22 at 0630, For 1 dose, Pre-Op, Indications: Pre-Emptive Analgesia 06 (Given - Provid er: Antonette Ortiz RN) ceFAZolin (ANCEF) 2,000 mg/20 mL in sterile water (premix) 2,000 mg (COMPLETED) 2,000 mg, intravenous, at 400 mL/hr, Administer over 3 Minutes, Once, On Teri 08/03/22 at 0630, For 1 dose, Pre-Op, Administer within 60 minutes of incision., Indications: Prophylaxis, Surgical 07 (Given - Provid er: Alfredo Prather CRNA) dimenhyDRINATE (DRAMAMINE) tablet 25 mg (COMPLETED) 25 mg, oral, Once, On Teri 08/03/22 at 0630, For 1 dose, Pre-Op, Indications: Prevention of Nausea and Vomiting 06 (Given - Provid er: Antonette Ortiz RN) gabapentin (NEURONTIN) capsule 300 mg (COMPLETED) 300 mg, oral, Once, On Teri 08/03/22 at 0630, For 1 dose, Pre-Op, Indications: Pre-Emptive Analgesia 626 (Given - Provid er: Antonette Ortiz RN) Continuous Medication Order 08/01/2022 08/02/2022 08/03/2022 Lactated Ringer's (LR) infusion 30 mL/hr, intravenous, Continuous, Starting on Teri 08/03/22 at 0630, Pre-Op, 0631 (New Bag - Prov ider: Antonette Ortiz RN)0724 (Rate/Dose Verify - Provider: Alfredo Prather CRNA)0827 (Paused - Provider: Alfredo Prather CRNA - Comment: Switch to gravity)0828 (New Bag - Provider: Alfredo Prather CRNA)0916 (Anesthesia Volume Adjustment - Provider: Alfredo Prather CRNA)1527 (Due: Stopped) lidocaine in dextrose 5% 2 g/250 mL (8 mg/mL) infusion (premix) 1.5 mg/kg/hr ? 50.1 kg [place] weight (9.3938 mL/hr, rounded to 9.39 mL/hr), 8 mg/mL, intravenous, Continuous, Starting on Teri 08/03/22 at 0800, Until Teri 08/03/22 at 1527, Indications: Pain, Call MD for symptoms of toxicity (ringing in ears, metallic taste, somnolence, numb lips) or lidocaine level greater than 5., Routine 0749 (New Bag - Prov ider: Alfredo Prather CRNA)0842 (Stopped - Provider: Alfredo Prather CRNA) PRN Medication Order 08/01/2022 08/02/2022 08/03/2022 albuterol 2.5 mg /3 mL (0.083 %) nebulizer solution 2.5 mg 2.5 mg, nebulization, As needed, wheezing, Starting on Teri 08/03/22 at 0913, For 2 doses, Phase I, Notify Anesthesiologist. , Indications: Bronchospastic Pulmonary Disease bupivacaine-EPINEPHrine (MARCAINE with EPI) 0.5 %-1:200,000 preservative free injection (CANCELED) As needed, Starting on Teri 08/03/22 at 0851, Intra-Op 0851 (Given - Provid er: Ernesto Byrd MD) Carrier Fluids for Secondary Infusion - 0.9% Sodium Chloride 30 mL, intravenous, As needed, For priming tubing and/or flushing, Starting on Teri 08/03/22 at 0557, Pre-Op, 0-250 ml/hr to flush line after IV infusions when no maintenance IV ordered. Infuse 30mL at the same rate as the secondary infusion. Run as primary IV, not intended for KVO. dextrose (D10W) 10% bolus 250 mL 250 mL, intravenous, at 1,000 mL/hr, Administer over 15 Minutes, Once as needed, blood glucose less than 70 mg/dL, Starting on Teri 08/03/22 at 0724, Pre-Op, Indications: Hypoglycemia diphenhydrAMINE (BENADRYL) injection 12.5 mg 12.5 mg, intravenous, Every 15 min PRN, itching, Starting on Teri 08/03/22 at 0913, For 2 doses, Phase I, Max cumulative dose 50 mg., Indications: Itching fentaNYL (SUBLIMAZE) preservative free injection 25 mcg 25 mcg, intravenous, Every 5 min PRN, uncontrolled pain on PACU admission, Starting on Teri 08/03/22 at 0913, For 4 doses, Phase I, Maximum dosage of fentanyl of 100 mcg for arrival to PACU, then proceed to PACU 1st line analgesic., Indications: Pain haloperidol (HALDOL) injection 1 mg 1 mg, intravenous, Administer over 5 Minutes, Once as needed, nausea, vomiting, Starting on Teri 08/03/22 at 0913, For 1 dose, Phase I, If post-operative nausea and/or vomiting is not relieved by ondansetron within 30 minutes or if more than 8mg of ondansetron have been given within the last 6 hours. HYDROmorphone (DILAUDID) injection 0.2 mg 0.2 mg, intravenous, Administer over 2 Minutes, Every 10 min PRN, 1st line for pain, Starting on Teri 08/03/22 at 0913, For 10 doses, Phase I, Switch to 2nd line analgesic order if pain is uncontrolled or increasing after 1 dose. Notify Anesthesiologist if total PACU dose reaches 2 mg and pain score 5/10 or more., Indications: Pain HYDROmorphone (DILAUDID) injection 0.4 mg 0.4 mg, intravenous, Administer over 2 Minutes, Every 10 min PRN, 2nd line for pain, Starting on Teri 08/03/22 at 0913, For 5 doses, Phase I, May administer 10 mintes after 1st dose of 1st line analgesic agent for uncontrolled or increasing pain. Revert to 1st line dose if POSS of 3. Notify Anesthesiologist if total PACU dose reaches 2 mg and pain score 5/10 or more., Indications: Pain labetaloL (NORMODYNE,TRANDATE) injection 5 mg 5 mg, intravenous, at 30 mL/hr, Administer over 2 Minutes, Every 10 min PRN, high blood pressure, Starting on Teri 08/03/22 at 0913, For 4 doses, Phase I, Max cumulative dose 20 mg. Dose if systolic blood pressure greater than 180 AND heart rate greater than 70. lidocaine PF (XYLOCAINE) 10 mg/mL (1 %) preservative free injection 2-10 mg 2-10 mg (0.2-1 mL), other, Once as needed, pain with IV placement, Starting on Teri 08/03/22 at 0557, For 1 dose, Pre-Op, Administer volume needed to infiltrate IV site. meperidine (DEMEROL) preservative free injection 12.5 mg 12.5 mg, intravenous, Administer over 5 Minutes, Every 10 min PRN, shivering, Starting on Teri 08/03/22 at 0913, For 2 doses, Phase I, Max cumulative dose 25 mg., Indications: Shivering naloxone (NARCAN) 0.4 mg/mL injection 0.04-0.4 mg 0.04-0.4 mg, intravenous, Once as needed, other, excessive sedation/respiratory depression, Starting on Teri 08/03/22 at 0913, For 1 dose, Phase I, BEFORE ADMINISTERING - call anesthesiologist to verify administration. Then, dilute 0.4 mg with 9 mL NS (final concentration 0.04 mg/mL). For respiratory depression (respiratory rate less than 6), administer 0.4 mg IVP over 30 seconds. For excessive sedation administer 0.04 mg (1 mL) every 1 minute until desired level of alertness. For IV, administer over 30 seconds., Indications: Opioid Toxicity ondansetron (ZOFRAN) injection 4 mg 4 mg, intravenous, Administer over 2 Minutes, Once as needed, nausea, vomiting, Starting on Teri 08/03/22 at 0913, For 1 dose, Phase I, Proceed to haloperidol if more than 8 mg of ondansetron have been given within the last 6 hours., Indications: Prevention of Post-Operative Nausea and Vomiting oxyCODONE (ROXICODONE) tablet 5 mg 5 mg, oral, As needed, 1st line for pain, Starting on Teri 08/03/22 at 0913, For 2 doses, Phase I, 1st ORAL choice for pain, when the patient is able to tolerate PO medications. May repeat in 1 hour if pain is uncontrolled or increasing after 1st dose., Indications: Pain 1015 (Given - Provid er: Antonio Portillo RN) racepinephrine (ASTHMANEFRIN) 2.25 % nebulizer solution 0.5 mL 0.5 mL, nebulization, As needed, other, stridor, Starting on Teri 08/03/22 at 0913, For 2 doses, Phase I, Notify Anesthesiologist. , Indications: Wheezing sodium chloride 0.9% flush 0.5-20 mL 0.5-20 mL, intra-catheter, As needed, line care, Starting on Teri 08/03/22 at 0557, Pre-Op, Flush volume based on line type and size. Flush before and after each use. sodium chloride 0.9% irrigation (CANCELED) As needed, Starting on Teri 08/03/22 at 0810, Intra-Op 0810 (Given - Provid er: Ernesto Byrd MD - Comment: PRN ON STERILE FIELD) thrombin-recombinant 5,000 unit topical solution (CANCELED) As needed, Starting on Teri 08/03/22 at 0808, Intra-Op 0808 (Given - Provid er: Ernesto Byrd MD - Comment: PRN IN GELFOAM) documented in this encounter Orders Medications Ordered That Vu ht Not Have Been Administered Count Last Ordered Date First Ordered Date albuterol 2.5 mg /3 mL (0.08 3 %) nebulizer solution 2.5 mg 08/03/2022 bupivacaine-EPINEPHrine (MAR KIA with EPI) 0.5 %-1:200,000 preservative free injection 08/03/2022 Carrier Fluids for Secondary Infusion - 0.9% Sodium Chloride 08/03/2022 ceFAZolin (ANCEF) 2,000 mg/2 0 mL in sterile water (premix) 2,000 mg 08/03/2022 dextrose (D10W) 10% bolus 250 mL 08/04/19 diphenhydrAMINE (BENADRYL) i njection 12.5 mg 08/03/2022 fentaNYL (SUBLIMAZE) preserv ative free injection 25 mcg 08/03/2022 haloperidol (HALDOL) injection 1 mg 08/03 HYDROmorphone (DILAUDID) injection 0.2 mg 08/03/2022 HYDROmorphone (DILAUDID) injection 0.4 mg 08/03/2022 labetaloL (NORMODYNE,TRANDAT E) injection 5 mg 08/03/2022 lidocaine in dextrose 5% 2 g /250 mL (8 mg/mL) infusion (premix) 08/03/2022 lidocaine PF (XYLOCAINE) 10 mg/mL (1 %) preservative free injection 2-10 mg 1 08/03/2022 meperidine (DEMEROL) preserv ative free injection 12.5 mg 1 08/03/2022 naloxone (NARCAN) 0.4 mg/mL injection 0.04-0.4 mg 1 08/03/2022 ondansetron (ZOFRAN) injection 4 mg 1 08/03 racepinephrine (ASTHMANEFRIN ) 2.25 % nebulizer solution 0.5 mL 1 08/03/2022 sodium chloride 0.9% flush 0.5-20 mL 1 07/16 sodium chloride 0.9% irrigation 1 thrombin-recombinant 5,000 u nit topical solution 1 08/03/2022 Diet Count Last Ordered Date First Orde red Date ADULT DIET 1 08/03/2022 Nursing Count Last Ordered Date First Orde red Date ACTIVITY 2 08/03/2022 DISCHARGE INSTRUCTIONS 2 08/03/2022 NEUROVASCULAR CHECKS 1 08/03/2022 NURSING COMMUNICATION 4 08/03/2022 PATIENT MAY SHOWER 1 08/03/2022 SKIN PREP 1 08/03/2022 VERIFY INFORMED CONSENT 1 08/03/2022 VITAL SIGNS 1 08/03/2022 Discharge Count Last Ordered Date First Orde red Date DISCHARGE PATIENT 1 08/03/2022 documented in this encounter
--- OUTSIDE RECORDS SUMMARY | 2024-04-05 02:14 | XMS_ITS | Encounter Summary ---
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 [M51.16] Procedures ND LAMOT PRTL FFD EXC DISC REEXPL 1 [facility] LUMBAR Re-exploration Right L5-S1 Decompression Laminectomy Referral ID Status Reason Start Date Expiration Date Visits Re quested Visits Authorized [id number] 1 1 Encounter Details Date Type Department Care Team (Late st Contact Info) Description 08/03/2022 7:30 AM CDT - 08/03/2022 10:00 AM CDT Surgery [facility] Operating Room [address] [place] [address] Ernesto Byrd MD [address] [facility] [address] [place] [address] Re-exploration Right L5-S1 Decompression Laminectomy Surgery Details Date/Time Status Location OR Service Patient Class Case Class Case Type Trauma Case? 08/03/2022 7:30 AM Posted [facility] OPERATING ROOM OR Orthopaedic Spine Outpatient in Bed Elective Panel 1 Procedure LRB Anes Op Region Wound Class Comments Re-exploration Right L5-S1 Decompression Laminectomy Right General Back Class I - Clean [facility], [facility] ([place]) Surgeon Surgeon Role Service Panel Ernesto Byrd MD Primary Orthopaedic Spine 1 documented in this encounter Social History Tobacco [...] Everywhere. * Anxiolysis in Adults (AfterCare(R) Instructions(ER/ED)) (Japanese) documented in this encounter Medications at Time [...] Decompression Laminectomy Source Note - Jeannette Portillo, ASPHALT SCREED OPERATOR - 08/01/2022 1:08 PM CDT Images from [...] stage I -impaired relaxation LVEF: 50-60%. Comments: Adjunct Psychology Professor is Dr. Garibay 11-15-2019 echocardiogram- LV chamber [...] heart failure, NYHA class 1 (CMS/HCC) (HCC) ??? Hypertension ??? Intervertebral disc disorder with [...] 10-325 mg per tablet -- 05/03/20 -- Provider, MD Laquita metoprolol XL (TOPROL-XL) 25 mg extended release [...] continuous bi-directional remote audio/visual communication between the clinical technician, reader and myself throughout the entire [...] S1 nerve root was palpated with a [place] and found to be widely decompressed along its entire course out into the foramen. The wound was copiously irrigated with antibiotic containing solution and then closed in layers. Dermabond was used to seal the skin. The patient tolerated the procedure well without complication andwas discharged in stable condition to the Post Anesthesia Care Unit with an unchanged neurological exam. IErnesto MD, was present throughout and performed the [...] disorder with radiculopathy of lumbar region- Primary Intervertebral disc disorder with radiculopathy of lumbar region documented in this encounter Admitting Diagnoses Diagnosis [...] , Indications: Bronchospastic Pulmonary DiseaseIndications:Bronchospastic Pulmonary Disease bupivacaine-EPINEPHrine (MARCAINE with EPI) 0.5 %-1:200,000 preservative free injection As needed, Starting on Teri 08/03/22 at 0851, Intra-Op Given 08/03/2022 8:51 AM CDT 8 mL Carrier Fluids for Secondary Infusion - 0.9% [...] infusion (premix) 1.5 mg/kg/hr ? 50.1 kg [place] weight (9.3938 mL/hr, rounded to 9.39 mL/hr), [...] I, Max cumulative dose 25 mg., Indications: ShiveringIndications:Shiver ing naloxone (NARCAN) 0.4 mg/mL injection 0.04-0.4 mg [...] hours., Indications: Prevention of Post-Operative Nausea and VomitingIndications:Prevent ion of Post-Operative Nausea and Vomiting oxyCODONE (ROXICODONE) [...] doses, Phase I, Notify Anesthesiologist. , Indications: WheezingIndications:Wheezin g sodium chloride 0.9% flush 0.5-20 mL 0.5-20 mL, intra-catheter, As needed, line care, Starting on Teri 08/03/22 at 0557, Pre-Op, Flush volume based on line type and size. Flush before and after each use. sodium chloride 0.9% irrigation As needed, Starting on Teri 08/03/22 at 0810, Intra-Op Given 08/03/2022 8:10 AM CDT 1,000 mL Surgical Site thrombin-recombinant 5,000 unit topical solution As needed, Starting on Teri 08/03/22 at 0808, Intra-Op Given 08/03/2022 8:08 AM CDT 5,000 Units Surgical Site documented in this encounter Discontinued Medications Medication [...] 60 minutes of incision., Indications: Prophylaxis, Surgical 0724 (Given - Provid er: Alfredo Prather CRNA) dimenhyDRINATE (DRAMAMINE) tablet 25 mg (COMPLETED) 25 mg, oral, Once, On Teri 08/03/22 at 0630, For 1 dose, Pre-Op, Indications: Prevention of Nausea and Vomiting 06 (Given - Provid er: Antonette Ortiz, RUTHY) gabapentin (NEURONTIN) capsule 300 mg (COMPLETED) 300 mg, oral, Once, On Teri 08/03/22 at 0630, For 1 dose, Pre-Op, Indications: Pre-Emptive Analgesia 0627 (Given - Provid er: Antonette Ortiz, RUTHY) Continuous Medication Order 08/01/2022 08/02/2022 08/03/2022 Lactated Ringer's (LR) infusion 30 mL/hr, intravenous, Continuous, Starting on Etri 08/03/22 at 0630, Pre-Op, 0631 (New Bag [...] infusion (premix) 1.5 mg/kg/hr ? 50.1 kg [place] weight (9.3938 mL/hr, rounded to 9.39 mL/hr), 8 mg/mL, intravenous, Continuous, Starting on Teri 08/03/22 at 0800, Until Teri 08/03/22 at 1527, Indications: Pain, Call MD for symptoms of toxicity (ringing in ears, metallic taste, somnolence, numb lips) or lidocaine level greater than 5., Routine 0749 (New Bag - Prov ider: Alfredo Prather CRNA)0842 (Stopped - Provider: Alfredo Prtaher CRNA) PRN Medication Order 08/01/2022 08/02/2022 08/03/2022 [...] 3 %) nebulizer solution 2.5 mg 1 08/03/2022 Carrier Fluids for Secondary Infusion - 0.9% Sodium Chloride 1 08/03/2022 ceFAZolin (ANCEF) 2,000 mg/2 0 mL in sterile water (premix) 2,000 mg 1 08/03/2022 dextrose (D10W) 10% bolus 250 mL 1 08/04/19 diphenhydrAMINE (BENADRYL) i njection 12.5 mg 1 08/03/2022 fentaNYL (SUBLIMAZE) preserv ative free injection 25 mcg 1 08/03/2022 haloperidol (HALDOL) injection 1 mg 1 08/03 HYDROmorphone (DILAUDID) injection 0.2 mg 1 08/03/2022 HYDROmorphone (DILAUDID) injection 0.4 mg 1 08/03/2022 labetaloL (NORMODYNE,TRANDAT E) injection 5 mg 1 08/03/2022 lidocaine in dextrose 5% 2 g /250 mL (8 mg/mL) infusion (premix) 1 08/03/2022 lidocaine PF (XYLOCAINE) 10 mg/mL (1 %) preservative free injection 2-10 mg 1 08/03/2022 meperidine (DEMEROL) preserv ative free injection 12.5 mg 1 08/03/2022 naloxone (NARCAN) 0.4 mg/mL injection 0.04-0.4 mg 1 08/03/2022 ondansetron (ZOFRAN) injection 4 mg 1 08/03 racepinephrine (ASTHMANEFRIN ) 2.25 % nebulizer solution 0.5 mL 1 08/03/2022 sodium chloride 0.9% flush 0.5-20 mL 1 07/16 Diet Count Last Ordered Date First Orde [...]
--- OUTSIDE RECORDS SUMMARY | 2024-04-05 02:15 | XMS_ITS | Encounter Summary ---
Author Organization [facility] Medical Group Address [address] [address] Care Team Providers Care Stock Sheets Cleaner Inspector Name Role Phone Travis Durand MD Primary Care Provider [phone] Reason for Visit * Reason Comments Insomnia shes running short o n elavil, wants to increase her med Encounter Details Date Type Department Care Team (Late st Contact Info) Description 12/17/2020 10:15 AM CDT Telemedicine [facility] Medical [facility] Family Medicine [address] [place] [address] Travis Durand MD [address] [place] [id number] Primary insomnia (Primary Dx); Migraine without aura and without status migrainosus, not intractable; Anxiety; Neuropathy of right lower extremity; Primary insomnia Social History Tobacco Use Types [...] mg total) by mouth nightly 45 tablet 12/17/2020 documented in this encounter Progress Notes * Travis Durand MD - 12/17/2020 10:15 AM CDT Images from the original note were not included. Subjective/Objective Patient ID: Gerardo Whitt is a 45 y.o. female. Visit Date: 12/17/2020 Chief Complaint Insomnia (shes running short on elavil, wants to increase her med) HPI Returns to the office for repeat evaluation. States that the elavil is helping but not all the way.The migraines are under control The edema in hte legs is under control The htn is under control. Review of Systems Constitutional: Negative for activity change. HENT: Negative for congestion. Eyes: Negative for visual disturbance. Respiratory: Negative for cough and chest tightness. Cardiovascular: Negative for chest pain and leg swelling. Gastrointestinal: Negative for abdominal pain, blood in stool, constipation, diarrhea and nausea. Genitourinary: Negative for difficulty urinating. Musculoskeletal: Negative for arthralgias, back pain and gait problem. Skin: Negative for rash. Neurological: Negative for headaches. Psychiatric/Behavioral: Positive for sleep disturbance. The patient is not nervous/anxious. Physical Exam Constitutional: Appearance: Normal appearance. HENT: Head: Normocephalic and atraumatic. Pulmonary: Effort: Pulmonary effort is normal. Musculoskeletal: General: Normal range of motion. Skin: General: Skin is warm and dry. Neurological: General: No focal deficit present. Mental Status: She is alert and oriented to person, place, and time. Psychiatric: Mood and Affect: Mood normal. Behavior: Behavior normal. This was a telemedicine visit with Gerardo Whitt alone which took place via real-time video connection with [employer]. During the visit, I was located in the office and [facility]. The patient visit started at 1030 and ended at 1036 The patient has been informed that the [...] billed and/or responsible for any applicable copayments. Assessment/Plan Diagnoses and all orders for this visit: Primary insomnia (F51.01) (Primary) Comments: condition chronic and not to goal increase kathy elavil to 37.5 mg Migraine without aura and without status migrainosus, not intractable (G43.009) Comments: conditon chroinc and at goal continue hte topamax Anxiety (F41.9) Comments: condition chonic and at goal continue the buspar Neuropathy of right lower extremity (G57.91) Comments: condition chnoic and at goal continue the flexeril Travis Durand MD documented in this encounter Plan of Treatment Not on file documented as of this encounter Visit Diagnoses Diagnosis Primary insomnia- Primary Persistent disorder of initiating or maintaining sleep Migraine without aura and without status migrainosus, not intractable Anxiety Anxiety state, unspecified Neuropathy of right lower extremity documented in this encounter Discontinued Medications Medication Sig Discontinue Reason Start Date End Da te amitriptyline (ELAVIL) 25 mg tabletIndications:Primary insomnia TAKE 1 TABLET(25 MG) BY MOUTH EVERY NIGHT Reorder 11/29/2020 12/17/2020 documented as of this encounter Historical Medications * This list may reflect changes made after this encounter. ibuprofen (ADVIL,MOTRIN) 800 mg tablet Take by mouth every 6 (six) hours as needed 09/16/2020 08/01/2022 cyclobenzaprine (FLEXERIL) 10 mg tablet Take 10 mg by mouth 3 (three) times a day 11/26/2020 06/01/2022 added in this encounter Care Teams Stock Sheets Cleaner Inspector Relationship Specialty Start Date End Date Travis Durand MD PCP - General Family Medicine 09/16/19 05/31/22 documented as of this encounter
--- OUTSIDE RECORDS SUMMARY | 2024-04-05 02:15 | XMS_ITS | Encounter Summary ---
Author Organization [facility] Medical Group Address [address] [address] Care Team Providers Care Medicaid Plan Compliance Director Name Role Phone Travis Durand MD Primary Care Provider [phone] Reason for Visit * Reason Comments Anxiety causing insomnia Facial Swelling w/ some sob at night hormonal issues Encounter Details Date Type Department Care Team (Latest Contact Info) Description 09/08/2020 9:15 AM CDT Office Visit [facility] Family Medicine [address] [place] [address] Travis Durand MD [address] [place] [address] Primary insomnia (Primary Dx); Anxiety; Lumbar back pain; Migraine without aura and without status migrainosus, not intractable; Encounter for annual routine gynecological examination; Encounter for screening mammogram for malignant neoplasm of breast Social History Tobacco Use Types Packs/Day Years [...] Sign Reading Time Taken Comments Blood Pressure 122/94 09/08/2020 10:12 AM CDT Pulse 84 09/08/2020 10:12 AM CDT Temperature 36.4 ??C (97.5 ??F) 09/08/2020 10:12 AM C DT Respiratory Rate 18 09/08/2020 10:12 AM CDT Oxygen Saturation 99% 09/08/2020 10:12 AM CDT Inhaled Oxygen Concentration - - Weight 57.2 kg (126 lb) 09/08/2020 10:12 AM CDT Height 154.9 cm (5' 1 ) 09/08/2020 10:12 AM CDT Body Mass Index 23.81 09/08/2020 10:12 AM CDT documented in this encounter Progress Notes * Travis Durand MD - 09/08/2020 9:15 AM CDT Images from the original note were not included. Subjective/Objective Patient ID: Gerardo Whitt is a 45 y.o. female. Visit Date: 09/08/2020 Chief Complaint Anxiety (causing insomnia), Facial Swelling (w/ some sob at night), and hormonal issues HPI Returns to the office for repeat evaluation. States that she is under a large amount of stess and is unable to sleep at night. States that the anxiety is getting worse and she has the back pain and is seeing neurosurgery. States that she can sleep 1.5 hours. Review of Systems Constitutional: Negative for activity [...] Neurological: Negative for headaches. Psychiatric/Behavioral: Negative for sleep disturbance. The patient is nervous/anxious. Insomnia Physical Exam Vitals reviewed. Constitutional: General: She is not in acute distress. Appearance: She is well-developed. HENT: Head: Normocephalic. Right Ear: External ear normal. Left Ear: External ear normal. Eyes: Conjunctiva/sclera: Conjunctivae normal. Pupils: Pupils are equal, round, and reactive to light. Neck: Thyroid: No thyromegaly. Comments: ROM appropriate Cardiovascular: Rate and Rhythm: Normal rate and regular rhythm. Heart sounds: Normal heart sounds. No murmur heard. No friction rub. No gallop. Pulmonary: Effort: Pulmonary effort is normal. Breath sounds: Normal breath sounds. Abdominal: General: Bowel sounds are normal. There is no distension. Palpations: Abdomen is soft. Tenderness: There is no abdominal tenderness. Musculoskeletal: Cervical back: Neck supple. Comments: ROM appropriate Skin: General: Skin is warm and dry. Capillary Refill: Capillary refill takes less than 2 seconds. Neurological: Mental Status: She is alert and oriented to person, place, and time. Psychiatric: Behavior: Behavior normal. Assessment/Plan Diagnoses and all orders for this visit: Primary insomnia (F51.01) (Primary) Comments: condtoin chronic and not at goal start elavil 25 mg qhs Anxiety (F41.9) Comments: conditon chronic and not at goal. continue the buspar Lumbar back pain (M54.5) Comments: condtoin chronic and not at goal follow with neurosurgery. Migraine without aura and without status migrainosus, not intractable (G43.009) Comments: conditon chronic and at goal continue the topamax Other orders - SCREENING MAMMOGRAM BILATERAL W MIKE; Future - Ambulatory referral to Obstetrics / Gynecology; Future Travis Durand MD documented in this encounter Plan of Treatment Not on file documented as of this encounter Visit Diagnoses Diagnosis Primary insomnia- Primary Persistent disorder of initiating or maintaining sleep Anxiety Anxiety state, unspecified Lumbar back pain Lumbago Migraine without aura and without status migrainosus, not intractable Encounter for annual routine gynecological examination Encounter for screening mammogram for malignant neoplasm of breast documented in this encounter Care Teams Medicaid Plan Compliance Director Relationship Specialty Start Date End Date Travis Durand MD PCP - General Family Medicine 09/16/19 05/31/22 documented as of this encounter
--- OUTSIDE RECORDS SUMMARY | 2024-04-05 02:15 | XMS_ITS | Encounter Summary ---
Author Organization [facility] Medical Group Address [address] [address] Care Team Providers Care Rack Washer Name Role Phone Travis Durand MD Primary Care Provider [phone] Reason for Visit * Reason Comments Follow-up anxiety Encounter Details Date Type Department Care Team (Late st Contact Info) Description 03/17/2020 10:30 AM MILIEU TECHNICIAN Telemedicine [facility] Medical [facility] Family Medicine [address] [place] [address] Travis Durand MD [address] [place] [address] [address] [place] [address] Patient left without being seen (Primary Dx) Social History Tobacco Use Types Packs/Day Years Used Date Smoking Tobacco: Every Day Cigarettes Smokeless Tobacco: Never Alcohol Use Standard Drinks/Week Comments Yes 0 (1 standard drink = 0.6 oz pur e alcohol) daily Comments Unknown Sex and Gender Information Value Date Recorded Sex Assigned at Not on file Legal Sex Female 1:49 PM CDT Gender Identity Female 06/30/2020 9:08 AM CDT Sexual Orientation Not on file documented as of this encounter Progress Notes * Travis Durand MD - 03/17/2020 10:30 AM CST Subjective/Objective Patient ID: Gerardo Whitt is a 45 y.o. female. Visit Date: 03/17/2020 Chief Complaint Follow-up (anxiety) HPI Patient was not seen Review of Systems Constitutional: Negative for activity [...] Negative for sleep disturbance. The patient is not nervous/anxious. Physical Exam Assessment/Plan EU TECHNICIAN documented in this encounter Plan of Treatment Not on file documented as of this encounter Visit Diagnoses Diagnosis Patient left without being seen- Primary Surgical or other procedure not carried out because of patient's decision documented in this encounter Care Teams Rack Washer Relationship Specialty Start Date End Date Travis Durand MD PCP - General Family Medicine 09/16/19 05/31/22 documented as of this encounter
--- OUTSIDE RECORDS SUMMARY | 2024-04-05 02:15 | XMS_ITS | Encounter Summary ---
Author Organization [facility] Medical Group Address [address] [address] Care Team Providers Care Plug Making Operator Name Role Phone Travis Durand MD Primary Care Provider [phone] Encounter Details Date Type Department Care Team (Late st Contact Info) Description 04/06/2021 Orders Only [facility] Medical [facility] Family Medicine [address] [place] [address] Travis Durand MD [address] [place] [address] [address] [place] [address] Social History Tobacco Use Types Packs/Day Years [...] Procedure Name Priority Date/Time Associated Diagnosis Comments HM COLONOSCOPY Routine 11/13/2019 documented in this encounter Results * HM COLONOSCOPY (11/13/2019) Historical Provider HEALTH MAINTENANCE Final Result documented in this encounter Visit Diagnoses Not on filedocumented in this encounter Care Teams Plug Making Operator Relationship Specialty Start Date End Date Travis Durand MD PCP - General Family Medicine 09/16/19 05/31/22 documented as of this encounter
--- OUTSIDE RECORDS SUMMARY | 2024-04-05 02:15 | XMS_ITS | Encounter Summary ---
Author Organization [facility] Medical Group Address [address] [address] Care Team Providers Care Crab Fisherman Name Role Phone Travis Durand MD Primary Care Provider [phone] Reason for Visit * Reason Onset Date Comments over due labs 04/11/2021 Encounter Details Date Type Department Care Team (Late st Contact Info) Description 04/11/2021 Telephone [facility] Medical [facility] Family Medicine [address] [place] [address] Travis Durand MD [address] [place] [address] [address] [place] [address] over due labs Social History Tobacco Use Types Packs/Day Years [...] encounter Miscellaneous Notes * Telephone Encounter - Neema Eagle MA - 04/11/2021 8:11 AM CST Over due mammogram my chart letter sent GRINDER documented in this encounter Plan of Treatment Not on file documented as of this encounter Visit Diagnoses Not on filedocumented in this encounter Care Teams Crab Fisherman Relationship Specialty Start Date End Date Travis Durand MD PCP - General Family Medicine 09/16/19 05/31/22 documented as of this encounter
--- OUTSIDE RECORDS SUMMARY | 2024-04-05 02:15 | XMS_ITS | Encounter Summary ---
Author Organization [facility] Address [address] [address] Care Team Providers Care Emergency Manager Name Role Phone Travis Durand MD Primary Care Provider [phone] Reason for Visit * Reason Onset Date Comments COVID 04/05/2020 Encounter Details Date Type Department Care Team (Late st Contact Info) Description 04/05/2020 Telephone [facility] Medical [facility] Family Medicine [address] [place] [address] Travis Durand MD [address] [place] [address] [address] [place] [address] COVID Social History Tobacco Use Types Packs/Day Years [...] Refills Last Filled Start Date End Date benzonatate (TESSALON) 100 mg capsuleIndications :Cough Take 1 capsule (100 mg total) by mouth 3 (three) times a day as needed for cough 42 capsule 04/05/2020 1 azithromycin (ZITHROMAX) 250 mg tablet Take 2 tabs (500 mg) by mouth today, than 1 daily for 4 days. 6 tablet 04/05/2020 0 documented in this encounter Miscellaneous Notes * Telephone Encounter - Kyara Nj MA - 04/05/2020 3:31 PM CST Baby asa, Zinc, Vitamin D 5,000 units, Vitamin C, Zpack and Tessalon per Dr. Ladarius LIZAMA protocol rx sent, pt aware D DUMPER * Telephone Encounter - Yaneli Cameron - 04/05/2020 3:18 PM CST Has covid and has a headache and body chills is there anything you can give her ? D DUMPER documented in this encounter Plan of Treatment Not on file documented as of this encounter Visit Diagnoses Not on filedocumented in this encounter Care Teams Emergency Manager Relationship Specialty Start Date End Date Travis Durand MD PCP - General Family Medicine 09/16/19 05/31/22 documented as of this encounter
--- OUTSIDE RECORDS SUMMARY | 2024-04-05 02:15 | XMS_ITS | Encounter Summary ---
Author Organization [facility] Address [address] [address] Care Team Providers Care Film And Video Graphics Designer Name Role Phone Travis Durand MD Primary Care Provider [phone] Encounter Details Date Type Department Care Team (Late st Contact Info) Description 05/05/[address] [facility] Family Medicine [address] [place] [address] Travis Durand MD [facility] [address] [place] [address] Social History Tobacco Use Types Packs/Day Years [...] encounter Miscellaneous Notes * Telephone Encounter - Imelda Odom MA - 05/05/2021 9:21 AM CST error IRER WELDING EQUIPMENT IRER WELDING EQUIPMENT documented in this encounter Plan of Treatment Not on file documented as of this encounter Visit Diagnoses Not on filedocumented in this encounter Care Teams Film And Video Graphics Designer Relationship Specialty Start Date End Date Travis Durand MD PCP - General Family Medicine 09/16/19 05/31/22 documented as of this encounter
--- OUTSIDE RECORDS SUMMARY | 2024-04-05 02:15 | XMS_ITS | Encounter Summary ---
Author Organization [facility] Address [address] [address] Care Team Providers Care Die Cleaner Name Role Phone Travis Durand MD Primary Care Provider [phone] Reason for Visit * Reason Onset Date Comments Sore Throat 05/26/2021 Encounter Details Date Type Department Care Team (Late st Contact Info) Description 05/26/2021 Telephone [facility] Family Medicine [address] [place] [address] Travis Durand MD [address] [place] [address] [address] [place] [address] Sore Throat Social History Tobacco Use Types Packs/Day Years [...] Refills Last Filled Start Date End Date azithromycin (ZITHROMAX) 250 mg tablet Take 2 tabs (500 mg) by mouth today, than 1 daily for 4 days. 6 tablet 05/26/2021 05/31/2021 documented in this encounter Miscellaneous Notes * Telephone Encounter - Kyara Nj MA - 05/26/2021 1:07 PM CST nette Durand sent ECUE COOK * Telephone Encounter - Gaby Jurado - 05/26/2021 12:52 PM CST Sore throat, painful to swollow No other symptoms Son was dx with strep throat Would like a script called out Rachel--- Renny Rene ECUE COOK documented in this encounter Plan of Treatment Not on file documented as of this encounter Visit Diagnoses Not on filedocumented in this encounter Care Teams Die Cleaner Relationship Specialty Start Date End Date Travis Durand MD PCP - General Family Medicine 09/16/19 05/31/22 documented as of this encounter
--- OUTSIDE RECORDS SUMMARY | 2024-04-05 02:15 | XMS_ITS | Encounter Summary ---
Author Organization [facility] Address [address] [address] Care Team Providers Care Property Management Intern Name Role Phone Travis Durand MD Primary Care Provider [phone] Reason for Visit * Reason Onset Date Comments overdue results 04/20/2021 Encounter Details Date Type Department Care Team (Late st Contact Info) Description 04/20/2021 Telephone [facility] Family Medicine [address] [place] [address] Travis Durand MD [address] [place] [address] [address] [place] [address] overdue results Social History Tobacco Use Types [...] encounter Miscellaneous Notes * Telephone Encounter - Sayra Her MA - 04/20/2021 12:26 PM BUYER INTERN Overdue labs, my chart letter sent R INTERN documented in this encounter Plan of Treatment Not on file documented as of this encounter Visit Diagnoses Not on filedocumented in this encounter Care Teams Property Management Intern Relationship Specialty Start Date End Date Travis Durand MD PCP - General Family Medicine 09/16/19 05/31/22 documented as of this encounter
--- OUTSIDE RECORDS SUMMARY | 2024-04-05 02:15 | XMS_ITS | Encounter Summary ---
Author Organization [facility] Address [address] [address] Care Team Providers Care Event Marketing Intern Name Role Phone Travis Durand MD Primary Care Provider [phone] Reason for Visit * Reason Comments Follow-up rad Encounter Details Date Type Department Care Team (Late st Contact Info) Description 02/13/2020 11:[address] [facility] Medical [facility] Family Medicine [address] [place] [address] Travis Durand MD [address] [place] [address] [address] [place] [address] Situational anxiety (Primary Dx); Major depressive disorder with single episode, in full remission (CMS/HCC); RAD (reactive airway disease), mild persistent, with acute exacerbation; Migraine without aura and without status migrainosus, [...] Refills Last Filled Start Date End Date busPIRone (BUSPAR) 15 mg tabletIndications: Situational anxiety Take 1 tablet (15 mg total) by mouth 2 (two) times a day 60 tablet 3 02/13/2020 08/23/2020 documented in this encounter Progress Notes * Travis Durand MD - 02/13/2020 11:30 AM CDT Images from the original note were not included. Subjective/Objective Patient ID: Gerardo Whitt is a 45 y.o. female. Visit Date: 02/13/2020 Chief Complaint Follow-up (rad) HPI Returns to the office for repeat evaluation. States that she has been doing good and the buspar is helping but not the best. The depression is under control and the rad is under control. The anxiety is under conrol. The migraines are under control Review of Systems Constitutional: Negative for activity [...] sleep disturbance. The patient is not nervous/anxious. Anxiety Physical Exam Constitutional: Appearance: Normal appearance. HENT: Head: Normocephalic and atraumatic. Pulmonary: Effort: Pulmonary effort is normal. Musculoskeletal: Normal range of motion. Skin: General: Skin is warm and dry. Neurological: General: No focal deficit present. Mental Status: She is alert and oriented to person, place, and time. Psychiatric: Mood and Affect: Mood normal. Behavior: Behavior normal. This was a telemedicine visit with Gerardo Whitt alone which took place via real-time video connection with [employer]. During the visit, I was located in the office and the patient was located at home [facility]. The patient visit started at 1310 and ended at 1319. The patient has been informed that the visit may not be secure and acknowledged the information. I have explained the option of participating in a telephone or video visit during the [facility] to the patient. After being given an opportunity to ask questions about and discuss this type of visit, the patient verbally consented to proceeding with the telephone/video visit.The patient understands that this service replaces an office visit and they may be billed and/or responsible for any applicable copayments. Travis Durand MD Assessment/Plan Diagnoses and all orders for this visit: Situational anxiety (F41.8) (Primary) Comments: condition chonic stbale refill buspar Orders: - busPIRone (BUSPAR) 15 mg tablet; Take 1 tablet (15 mg total) by mouth 2 (two) times a day Major depressive disorder with single episode, in full remission (CMS/HCC) (F32.5) Comments: conditon chonic stable cointinue care RAD (reactive airway disease), mild persistent, with acute exacerbation (J45.31) Comments: conditon chrnioc stbale continue care Migraine without aura and without status migrainosus, not intractable (G43.009) Comments: conditoin chronci stblae continue care Travis Durand MD documented in this encounter Plan of Treatment Not on file documented as of this encounter Visit Diagnoses Diagnosis Situational anxiety- Primary Major depressive disorder with single episode, in full remission (HCC) RAD (reactive airway disease), mild persistent, with acute exacerbation Migraine without aura and without status migrainosus, not intractable documented in this encounter Discontinued Medications Medication Sig Discontinue Reason Start Date End Da te lisinopril (PRINIVIL,ZESTRIL) 5 mg tablet Take 1 tablet by mouth daily Alternate therapy 12/14/2018 02/13/2020 busPIRone (BUSPAR) 15 mg tabletIndications:Situat ional anxiety TAKE 1 TABLET(15 MG) BY MOUTH TWICE DAILY NEEDED FOR ANXIETY Reorder 11/21/2019 02/13/2020 documented as of this encounter Care Teams Event Marketing Intern Relationship Specialty Start Date End Date Travis Durand MD PCP - General Family Medicine 09/16/19 05/31/22 documented as of this encounter
--- OUTSIDE RECORDS SUMMARY | 2024-04-05 02:15 | XMS_ITS | Encounter Summary ---
Author Organization [facility] Address [address] [address] Care Team Providers Care Packer Denture Name Role Phone Travis Durand MD Primary Care Provider [phone] Reason for Visit * Reason Onset Date Comments Call Back 04/05/2021 Encounter Details Date Type Department Care Team (Late st Contact Info) Description 04/05/2021 Telephone [facility] Family Medicine [address] [place] [address] Travis Durand MD [address] [place] [address] [address] [place] [address] Call Back Social History Tobacco Use Types Packs/Day Years [...] Telephone Encounter - Kyara Nj MA - 04/05/2021 10:36 AM CST lvm for cb wanting cxr at [facility] Spoke to pt Order faxed to [facility] noemi eldridge [phone] fax TED CIRCUIT BOARD PANELS DEVELOPER TED CIRCUIT BOARD PANELS DEVELOPER documented in this encounter Plan of Treatment Not on file documented as of this encounter Visit Diagnoses Diagnosis Pleurisy- Primary Pleurisy without mention of effusion or current tuberculosis documented in this encounter Care Teams Packer Denture Relationship Specialty Start Date End Date Travis Durand MD PCP - General Family Medicine 09/16/19 05/31/22 documented as of this encounter
--- OUTSIDE RECORDS SUMMARY | 2024-04-05 02:15 | XMS_ITS | Encounter Summary ---
Author Organization [facility] Healthcare Address [address] [place] [address] Care Team Providers Care Packaging Tech Name Role Phone Travis Durand MD Primary Care Provider [phone] Encounter Details Date Type Department Care Team (Latest Contact Info) Description 11/18/2021 - 11/18/2021 11:59 PM CDT Hospital Encounter [facility] - Imaging [phone] Discharge Disposition: Discharge to home or self [...] hydroxide simethicone-diphen hydramine-lidocain e-nystatin (MAGIC MOUTHWASH) suspension 1-2-1-1Indications :Stomatitis Swish and swallow 10 mL 4 [...] Name Priority Date/Time Associated Diagnosis Comments XR TRANSFER OF OUTSIDE FILMS Routine 11/18/2021 12:00 AM CDT documented in this encounter Results * XR Outside Reference (11/18/2021 12:00 AM CDT) Narrative RAD_PACS_OUTSIDE_FILM_[facility] - 07/19/2022 4:02 PM CDT This order has been auto-finalized and does not contain a result. us Ernesto Byrd MD IMG XR PROCEDURES Final Resul t RAD_PACS_OUTSIDE_FILM_[facility] documented in this encounter Visit Diagnoses Not on filedocumented in this encounter Care Teams Packaging Tech Relationship Specialty Start Date End Date Travis Durand MD PCP - General Family Medicine 09/16/19 05/31/22 documented as of this encounter
--- OUTSIDE RECORDS SUMMARY | 2024-04-05 02:15 | XMS_ITS | Encounter Summary ---
Author Organization [facility] Address [address] [address] Care Team Providers Care Textile Broker Name Role Phone Travis Durand MD Primary Care Provider [phone] Encounter Details Date Type Department Care Team (Late st Contact Info) Description 06/27/2021 Telephone [facility] Family Medicine [address] [place] [address] Travis Durand MD [facility] [address] [place] [address] Social History Tobacco Use Types Packs/Day Years [...] mg total) by mouth nightly 45 tablet 2 06/27/2021 topiramate (TOPAMAX) 50 mg tabletIndications: Migraine without aura and without status migrainosus, not intractable Take 1 tablet (50 mg total) by mouth 2 (two) times a day 60 tablet 2 06/27/2021 documented in this encounter Miscellaneous Notes * Telephone Encounter - Kyara Nj MA - 06/27/2021 2:49 PM CDT sent * Telephone Encounter - Maria C Cameron - 06/27/2021 2:33 PM CDT Patient needs topamax and amitriptyline refilled at [facility] documented in this encounter Plan of Treatment Not on file documented as of this encounter Visit Diagnoses Diagnosis Migraine without aura and without status migrainosus, not intractable Primary insomnia Persistent disorder of initiating or maintaining sleep documented in this encounter Discontinued Medications Medication Sig Discontinue Reason Start Date End Da te amitriptyline (ELAVIL) 25 mg tabletIndications:Primary insomnia TAKE 1 AND 1/2 TABLETS(37.5 MG) BY MOUTH EVERY NIGHT Reorder 02/18/2021 06/27/2021 topiramate (TOPAMAX) 50 mg tabletIndications:Migrain e without aura and without status migrainosus, not intractable Take 1 tablet (50 mg total) by mouth 2 (two) times a day Reorder 05/26/2021 06/27/2021 documented as of this encounter Care Teams Textile Broker Relationship Specialty Start Date End Date Travis Durand MD PCP - General Family Medicine 09/16/19 05/31/22 documented as of this encounter
--- OUTSIDE RECORDS SUMMARY | 2024-04-05 02:15 | XMS_ITS | Encounter Summary ---
Author Organization [facility] Address [address] [address] Care Team Providers Care Emergency Room Technician Name Role Phone Travis Durand MD Primary Care Provider [phone] Reason for Visit * Reason Comments Follow-up Back pain Constipation Encounter Details Date Type Department Care Team (Late st Contact Info) Description 07/19/2021 12:45 PM CDT Office Visit [facility] Medical [facility] Family Medicine [address] [place] [address] Travis Durand MD [address] [place] [address] [address] [place] [address] Primary insomnia (Primary Dx); Irritable bowel syndrome with constipation; Benign essential HTN; Intractable migraine without aura and without status migrainosus; Migraine without aura and without status migrainosus, [...] Sign Reading Time Taken Comments Blood Pressure 110/66 07/19/2021 1:16 PM CDT Pulse 92 07/19/2021 1:16 PM CDT Temperature 36.6 ??C (97.9 ??F) 07/19/2021 1:16 PM CD T Respiratory Rate 18 07/19/2021 1:16 PM CDT Oxygen Saturation 95% 07/19/2021 1:16 PM CDT Inhaled Oxygen Concentration - - Weight 65.3 kg (144 lb) 07/19/2021 1:16 PM CDT Height 154.9 cm (5' 1 ) 07/19/2021 1:16 PM CDT Body Mass Index 27.21 07/19/2021 1:16 PM CDT documented in this encounter Ordered Prescriptions Prescription Sig Dispense Quantity Refills Last Filled Start Date End Date topiramate (TOPAMAX) 100 mg tabletIndications: Migraine without aura and without status migrainosus, not intractable Take 1 tablet (100 mg total) by mouth 2 (two) times a day 60 tablet 5 07/19/2021 2 linaCLOtide (LINZESS) 145 mcg capsuleIndications :Irritable bowel syndrome with constipation Take 1 capsule (145 mcg total) by mouth daily 30 capsule 5 07/19/2021 3 documented in this encounter Progress Notes * Travis Durand MD - 07/19/2021 12:45 PM CDT Images from the original note were not included. Subjective/Objective Patient ID: Gerardo Whitt is a 46 y.o. female. Visit Date: 07/19/2021 Chief Complaint Follow-up (Back pain) and Constipation HPI Returns to the office for repeat evaluation. States that hte back pain continue sand has the constiatpoin hte migraines are not under control and hte htn Is under control. hte insomnia is under control. Review of Systems Constitutional: Negative for activity change. HENT: Negative for congestion. Eyes: Negative for visual disturbance. Respiratory: Negative for cough and chest tightness. Cardiovascular: Negative for chest pain and leg swelling. Gastrointestinal: Positive for constipation. Negative for abdominal pain, blood in stool, diarrhea and nausea. Genitourinary: Negative for difficulty urinating. Musculoskeletal: Negative for arthralgias, back pain and gait problem. Skin: Negative for rash. Neurological: Positive for headaches. Psychiatric/Behavioral: Negative for sleep disturbance. The patient is not nervous/anxious. Physical Exam Vitals reviewed. Constitutional: General: She [...] this visit: Primary insomnia (F51.01) (Primary) Comments: conditoin chroinc adn at goal contineu the elavil. Irritable bowel syndrome with constipation (K58.1) Comments: conditon chronic and at goal continue the linzess 145 Benign essential HTN (I10) Comments: conditoin chronic nad at goal continue the metoprolol xl. Intractable migraine without aura and without status migrainosus (G43.019) Comments: condition choinc and not at gao incrase the topamax to 100 mg bid Other orders - linaCLOtide (LINZESS) 145 mcg capsule; Take 1 capsule (145 mcg total) by mouth daily Travis Durand MD documented in this encounter Plan of Treatment Not on file documented as of this encounter Visit Diagnoses Diagnosis Primary insomnia- Primary Persistent disorder of initiating or maintaining sleep Irritable bowel syndrome with constipation Irritable bowel syndrome Benign essential HTN Intractable migraine without aura and without status migrainosus Migraine without aura and without status migrainosus, not intractable documented in this encounter Discontinued Medications Medication Sig Discontinue Reason Start Date End Da te topiramate (TOPAMAX) 50 mg tabletIndications:Migrain e without aura and without status migrainosus, not intractable Take 1 tablet (50 mg total) by mouth 2 (two) times a day Reorder 06/27/2021 07/19/2021 linaCLOtide (LINZESS) 145 mcg capsule 145 mcg daily Reorder 07/19/2021 documented as of this encounter Historical Medications * This list may reflect changes made after this encounter. linaCLOtide (LINZESS) 145 mcg capsule 145 mcg daily 07/19/2021 added in this encounter Care Teams Emergency Room Technician Relationship Specialty Start Date End Date Travis Durand MD PCP - General Family Medicine 09/16/19 05/31/22 documented as of this encounter
--- OUTSIDE RECORDS SUMMARY | 2024-04-05 02:15 | XMS_ITS | Encounter Summary ---
Author Organization [facility] Address [address] [address] Care Team Providers Care Speech And Hearing Director Name Role Phone Travis Durand MD Primary Care Provider [phone] Reason for Visit * Reason Onset Date Comments Request Call Back 08/01/2021 Encounter Details Date Type Department Care Team (Late st Contact Info) Description 08/01/2021 Telephone [facility] Family Medicine [address] [place] [address] Travis Durand MD [address] [place] [address] [address] [place] [address] Request Call Back (/) Social History Tobacco Use Types Packs/Day Years [...] Telephone Encounter - Kyara Nj MA - 08/02/2021 1:12 PM CDT Spoke to pt This has been resolved, she asked for a name of an manufacturing systems engineer * Telephone Encounter - Kyara Nj MA - 08/01/2021 4:42 PM CDT lvm for cb re ER visit documented in this encounter Plan of Treatment Not on file documented as of this encounter Visit Diagnoses Not on filedocumented in this encounter Care Teams Speech And Hearing Director Relationship Specialty Start Date End Date Travis Durand MD PCP - General Family Medicine 09/16/19 05/31/22 documented as of this encounter
--- OUTSIDE RECORDS SUMMARY | 2024-04-05 02:15 | XMS_ITS | Encounter Summary ---
Author Organization [facility] Address [address] [address] Care Team Providers Care Dance Critic Name Role Phone Travis Durand MD Primary Care Provider [phone] Reason for Visit * Reason Comments Follow-up insomnia Chest Wall Pain bilateral Encounter Details Date Type Department Care Team (Late st Contact Info) Description 03/21/2021 9:30 AM WRAPPER STEMMER OPERATOR Office Visit [facility] Family Medicine [address] [place] [address] Travis Durand MD [address] [place] [address] [address] [place] [address] Pleurisy (Primary Dx); Migraine without aura and without status migrainosus, not intractable; Fatigue, unspecified type; Neuropathy of right lower extremity; Primary hypertension Social History Tobacco Use Types Packs/Day Years [...] Sign Reading Time Taken Comments Blood Pressure 104/68 03/21/2021 10:44 AM WRAPPER STEMMER OPERATOR Pulse 87 03/21/2021 10:44 AM WRAPPER STEMMER OPERATOR Temperature 36 ??C (96.8 ??F) 03/21/2021 10:44 AM WRAPPER STEMMER OPERATOR Respiratory Rate 18 03/21/2021 10:44 AM WRAPPER STEMMER OPERATOR Oxygen Saturation 98% 03/21/2021 10:44 AM WRAPPER STEMMER OPERATOR Inhaled Oxygen Concentration - - Weight 65.8 kg (145 lb) 03/21/2021 10:44 AM WRAPPER STEMMER OPERATOR Height 154.9 cm (5' 1 ) 03/21/2021 10:44 AM WRAPPER STEMMER OPERATOR Body Mass Index 27.4 03/21/2021 10:44 AM WRAPPER STEMMER OPERATOR documented in this encounter Progress Notes * Travis Durand MD - 03/21/2021 9:30 AM CST Images from the original note were not included. Subjective/Objective Patient ID: Gerardo Whitt is a 46 y.o. female. Visit Date: 03/21/2021 Chief Complaint Follow-up (insomnia) and Chest Wall Pain (bilateral ) HPI Returns to the office for repeat evaluation. States that she has been having chest wall pain The lumbar back pain continues and the migraines are under control. Has been having fatigue. Review of Systems Constitutional: Negative for activity change. HENT: Negative for congestion. Eyes: Negative for visual disturbance. Respiratory: Negative for cough and chest tightness. Cardiovascular: Negative for chest pain and leg swelling. Gastrointestinal: Negative for abdominal pain, blood in stool, constipation, diarrhea and nausea. Genitourinary: Negative for difficulty urinating. Musculoskeletal: Negative for arthralgias, back pain and gait problem. Rib pain, bilateral Skin: Negative for rash. Neurological: Negative for [...] tenderness. Musculoskeletal: Cervical back: Neck supple. Comments: Chest wall pain Skin: General: Skin is warm and dry. Capillary Refill: Capillary refill takes less than 2 seconds. Neurological: Mental Status: She is alert and oriented to person, place, and time. Psychiatric: Behavior: Behavior normal. Assessment/Plan Diagnoses and all orders for this visit: Pleurisy (R09.1) (Primary) Comments: condition acute. meloxicam and toradol 60 mg Orders: - ketorolac (TORADOL) 60 mg/2 mL intramuscular injection 60 mg; Inject 2 mL (60 mg total) into the muscle as instructed once Migraine without aura and without status migrainosus, not intractable (G43.009) Comments: condition chroinc adn at goal continue the topamax. Fatigue, unspecified type (R53.83) Comments: condition chroinc and not at gaol check labs. Orders: - CBC with auto differential; Future - Comprehensive metabolic panel; Future - TSH; Future - Vitamin B12; Future Neuropathy of right lower extremity (G57.91) Comments: conditon chroinc and at goal continue the pain meds and follow with pain management Primary hypertension (I10) Comments: condiotn chroinc and at goal continue the metoprolol xl. Travis Durand MD PER STEMMER OPERATOR documented in this encounter Plan of Treatment Not on file documented as of this encounter Procedures Procedure Name Priority Date/Time Associated Diagnosis Comments CBC WITH AUTO DIFFERENTIAL Routine 07/04/2021 11:33 AM CDT Fatigue, unspecified type TSH Routine 07/04/2021 11:33 AM CDT Fatigue, unspecified type VITAMIN B12 Routine 07/04/2021 11:33 AM CDT Fatigue, unspecified type COMPREHENSIVE METABOLIC PANEL Routine 07/04/2021 11:33 AM CDT Fatigue, unspecified type documented in this encounter Results * Vitamin B12 (07/04/2021 11:33 AM CDT) Vitamin B12 528 232 - 1,245 pg/mL [facility] - 01 Blood specimen (specimen) 07/04/2021 11:33 AM CDT 07/04/2021 Narrative [facility] - 07/05/2021 8:12 AM CDT Performed at: ??01 - [facility] ??[id number] Certified Marine Mechanic: Zhao Pugh PhD, Phone: ??[phone] Travis Durand MD LAB BLOOD ORDERABLES [facility] - 01 * TSH (07/04/2021 11:33 AM CDT) TSH 0.932 0.450 - 4.500 uIU/mL [facility] - 01 Blood specimen (specimen) 07/04/2021 11:33 AM CDT 07/04/2021 Narrative [facility] - 07/05/2021 8:12 AM CDT Performed at: ??[address] [facility] ??[id number] Certified Marine Mechanic: Zhao Pugh PhD, Phone: ??[phone] us Travis Durand MD LAB BLOOD ORDERABLES Final Resu lt [facility] - 01 * Comprehensive metabolic panel (07/04/2021 11:33 AM CDT) Glucose 96 65 - 99 mg/dL [facility] - 01 BUN 9 6 - 24 mg/dL [facility] - 01 Creatinine, Serum 0.69 0.57 - 1.00 mg/dL [facility] - 01 eGFR 109 >59 mL/min/1.73 [facility] - 01 BUN/creat ratio 13 9 - 23 [facility] - 01 Sodium 139 134 - 144 mmol/L [facility] - 01 Potassium, sr 4.7 3.5 - 5.2 mmol/L [facility] - 01 Chloride 104 96 - 106 mmol/L [facility] - 01 CO2 20 20 - 29 mmol/L [facility] - 01 Calcium 9.2 8.7 - 10.2 mg/dL [facility] - 01 Protein, sr 6.4 6.0 - 8.5 g/dL [facility] - 01 Albumin 4.3 3.8 - 4.8 g/dL [facility] - 01 Globulin, Total 2.1 1.5 - 4.5 g/dL [facility] - 01 A/G Ratio 2.0 1.2 - 2.2 [facility] - 01 Bilirubin, Total <0.2 0.0 - 1.2 mg/dL [facility] - 01 Alk phos 93 44 - 121 IU/L [facility] - 01 AST 15 0 - 40 IU/L [facility] - 01 ALT 8 0 - 32 IU/L [facility] - 01 Blood specimen (specimen) 07/04/2021 11:33 AM CDT 07/04/2021 Narrative [facility] - 07/05/2021 8:12 AM CDT Performed at: ??01 - [facility] [address] ??[id number] Certified Marine Mechanic: Zhao Pugh PhD, Phone: ??[phone] us Travis Durand MD LAB BLOOD ORDERABLES Final Resu lt [facility] - 01 * (ABNORMAL) CBC with auto differential (07/04/2021 11:33 AM CDT) WBC 5.4 3.4 - 10.8 x10E3/uL [facility] - 01 RBC 4.06 3.77 - 5.28 x10E6/uL [facility] - 01 Hgb 13.6 11.1 - 15.9 g/dL [facility] - 01 Hct 40.0 34.0 - 46.6 % [facility] - 01 MCV 99(H) 79 - 97 fL [facility] - 01 MCH 33.5(H) 26.6 - 33.0 pg [facility] - 01 MCHC 34.0 31.5 - 35.7 g/dL [facility] - 01 Rdw 12.9 11.7 - 15.4 % [facility] - 01 Platelets 285 150 - 450 x10E3/uL [facility] - 01 Neutrophils pct 59 Not Estab. % [facility] - 01 Lymphs pct 28 Not Estab. % [facility] - 01 Monocytes pct 8 Not Estab. % [facility] - 01 Eosinophils pct 4 Not Estab. % [facility] - 01 Basophil pct 1 Not Estab. % [facility] - 01 Neutrophil abs 3.2 1.4 - 7.0 x10E3/uL [facility] - 01 Lymphs (Absolute) 1.5 0.7 - 3.1 x10E3/uL [facility] - 01 Monocyte abs 0.4 0.1 - 0.9 x10E3/uL [facility] - 01 Eosinophils, abs 0.2 0.0 - 0.4 x10E3/uL [facility] - 01 Basophils, abs 0.1 0.0 - 0.2 x10E3/uL [facility] - 01 Immature Granulocytes 0 Not Estab. % [facility] - 01 Immature Grans (Abs) 0.0 0.0 - 0.1 x10E3/uL [facility] - 01 Blood specimen (specimen) 07/04/2021 11:33 AM CDT 07/04/2021 Narrative [facility] - 07/05/2021 8:12 AM CDT Performed at: ??01 - [facility] [address] ??[id number] Certified Marine Mechanic: Zhao Pugh PhD, Phone: ??[phone] us Travis Durand MD LAB BLOOD ORDERABLES Final Resu lt [facility] - 01 documented in this encounter Visit Diagnoses Diagnosis Pleurisy- Primary Pleurisy without mention of effusion or current tuberculosis Migraine without aura and without status migrainosus, not intractable Fatigue, unspecified type Neuropathy of right lower extremity Primary hypertension Unspecified essential hypertension documented in this encounter Administered Medications Inactive Administered Medications - up to 3 most recent administrations Medication Order MAR Action Action Date Dose Rate Site ketorolac (TORADOL) 60 mg/2 mL intramuscular injection 60 mg 60 mg, intramuscular, Once, On Sun03/21/21 at 1200, For 1 doseIndications:Pleurisy Given 03/21/2021 11:25 AM WRAPPER STEMMER OPERATOR 60 mg Right Dorsogluteal/Butto ck documented in this encounter Historical Medications * This list may reflect changes made after this encounter. cetirizine (ZyrTEC) 10 mg tablet Take 10 mg by mouth daily 06/01/2022 magnesium oxide (MAG-OX) 250 mg (150.8 mg elemental) tabletIndications :hypomagnesemia 250 mg daily 023 potassium 99 mg tablet Take 1 tablet by mouth daily 06/01/2022 zinc 50 mg tablet Take 1 tablet by mouth daily 06/01/2022 multivitamin capsule Take 1 capsule by mouth daily 08/01/2022 added in this encounter Care Teams Dance Critic Relationship Specialty Start Date End Date Travis Durand MD PCP - General Family Medicine 09/16/19 05/31/22 documented as of this encounter
--- OUTSIDE RECORDS SUMMARY | 2024-04-05 02:15 | XMS_ITS | Encounter Summary ---
Author Organization [facility] Address [address] [address] Care Team Providers Care Communications Clerk Name Role Phone Travis Durand MD Primary Care Provider [phone] Reason for Visit * Reason Comments Anxiety/Depression Encounter Details Date Type Department Care Team (Late st Contact Info) Description 06/30/2020 9:[address] [facility] Family Medicine [address] [place] [address] Rivas Salcedo, KRISTAN [address] [facility] [address] [address] Major depressive disorder with single episode, in full remission (CMS/HCC) (Primary Dx); Anxiety Social History Tobacco Use Types Packs/Day Years [...] as of this encounter Progress Notes * Rivas Salcedo PA - 06/30/2020 9:00 AM CDT Subjective/Objective Patient ID: Gerardo Whitt is a 45 y.o. female. Chief Complaint Anxiety/Depression HPI Patient completed telemedicine visit via video audio today. Patient is completing appointment in respects to severe depression anxiety. She has no suicidal thoughts or ideations. She has been treatedfor this over the last couple years she has not had any luck with medications. At this point she is wanting to seek psychiatry and counseling. She states she stopped her alcohol abuse. She denies anyuse of illicit drugs today. Patient states she is compliant with her buspirone Review of Systems Constitutional: Negative for fatigue, fever and unexpected weight change. HENT: Negative for congestion, ear pain, hearing loss, rhinorrhea and voice change. Eyes: Negative for discharge, redness and visual disturbance. Respiratory: Negative for cough, chest tightness and shortness of breath. Cardiovascular: Negative for chest pain, palpitations and leg swelling. Gastrointestinal: Negative for abdominal pain, blood in stool, constipation, diarrhea and nausea. Endocrine: Negative for polydipsia and polyuria. Genitourinary: Negative for dysuria and frequency. Skin: Negative for color change and rash. Neurological: Negative for dizziness, tremors and headaches. Hematological: Does not bruise/bleed easily. Psychiatric/Behavioral: Negative for confusion and dysphoric mood. Depression/Anxiety There were no vitals taken for this visit. Physical Exam Vitals reviewed. Constitutional: General: She is not in acute distress. Appearance: Normal appearance. She is not ill-appearing. HENT: Head: Normocephalic. Eyes: Extraocular Movements: Extraocular movements intact. Conjunctiva/sclera: Right eye: Right conjunctiva is not injected. Left eye: Left conjunctiva is not injected. Pulmonary: Effort: Pulmonary effort is normal. No respiratory distress. Neurological: General: No focal deficit present. Mental Status: She is alert. Psychiatric: Attention and Perception: Attention normal. Mood and Affect: Mood normal. Speech: Speech normal. Behavior: Behavior normal. Behavior is cooperative. Thought Content: Thought content normal. Assessment/Plan Diagnoses and all orders for this visit: Major depressive disorder with single episode, in full remission (CMS/HCC) (F32.5) (Primary) Assessment & Plan: Chronic condition not well controlled Refer to dr silverman and his counselor. YAMILETH Patient advised to call us or go to the ER with any suicidal thoughts or ideations. Orders: - Ambulatory referral to Psychiatry; Future Anxiety (F41.9) Assessment & Plan: Chronic uncontrolled Refer to dr silverman Orders: - Ambulatory referral to Psychiatry; Future This was a telemedicine visit with Gerardo gill which took place via real-time video connection with [employer]. During the visit, I was located in the office and the patient was located at home [facility]. The patient visit started at 10:10 a.m. and ended at 10:20 a.m.. The patient has been informed that the visit may not be secure and acknowledged the information. I have explained the option of participating in a telephone or video visit during the [facility] public health emergency to the patient. After being given an opportunity to ask questions about and discuss this type of visit, the patient verbally consented to proceeding with the telephone/video visit.The patient understands that this service replaces an office visit and they may be billed and/or responsible for any applicable copayments. documented in this encounter Miscellaneous Notes * Assessment & Plan Note - Rivas Salcedo PA - 06/30/2020 10:19 AM CDT Associated Problem(s): Anxiety Chronic uncontrolled Refer to dr silverman * Assessment & Plan Note - Rivas Salcedo PA - 06/30/2020 10:18 AM CDT Associated Problem(s): Depression Chronic condition not well controlled Refer to dr silverman and his counselor. YAMILETH Patient advised to call us or go to the ER with any suicidal thoughts or ideations. documented in this encounter Plan of Treatment Not on file documented as of this encounter Visit Diagnoses Diagnosis Major depressive disorder with single episode, in full remission (HCC)- Primary Anxiety Anxiety state, unspecified documented in this encounter Care Teams Communications Clerk Relationship Specialty Start Date End Date Travis Durand MD PCP - General Family Medicine 09/16/19 05/31/22 documented as of this encounter
--- OUTSIDE RECORDS SUMMARY | 2024-04-05 02:15 | XMS_ITS | Encounter Summary ---
Author Organization [facility] Address [address] [address] Care Team Providers Care Partition Assembly Machine Operator Name Role Phone Travis Durand MD Primary Care Provider [phone] Reason for Referral * Diagnostic Imaging (Routine) - Closed Specialty Diagnoses / Procedures Referred By Contac t Referred To Contact Diagnoses Cough Procedures XR Chest Pa Lateral 2 Vw Travis Durand MD Phone: tel: fax: [facility] [address] [place] [address] Referral ID Status Reason Start Date Expiration Date Visits Re quested Visits Authorized [id number] Closed 05/21/2020 06/20/2021 1 1 ER [facility] Reason for Visit * Reason Comments Cough getting worse Rash belly and back Fatigue Encounter Details Date Type Department Care Team (Late st Contact Info) Description 05/21/2020 8:30 AM PORTER [facility]GG[facility] Office Visit [facility] Family Medicine [address] [place] [address] Travis Durand MD [address] [place] [address] Disseminated herpes zoster (Primary Dx); Anxiety; Cough; Fatigue, unspecified type Social History Tobacco Use Types Packs/Day Years [...] Sign Reading Time Taken Comments Blood Pressure 128/92 05/21/2020 8:35 AM PORTER [facility]GG[facility] Pulse 118 05/21/2020 8:35 AM PORTER [facility]GG[facility] Temperature 37.1 ??C (98.8 ??F) 05/21/2020 8:35 AM CS T Respiratory Rate 19 05/21/2020 8:35 AM PORTER [facility] Oxygen Saturation 97% 05/21/2020 8:35 AM PORTER [facility]GG[facility] Inhaled Oxygen Concentration - - Weight 59.6 kg (131 lb 6.4 oz) 05/21/2020 8:35 A M PORTER [facility]GG[facility] Height 154.9 cm (5' 1 ) 05/21/2020 8:35 AM PORTER [facility]GG[facility] Body Mass Index 24.83 05/21/2020 8:35 AM PORTER [facility]GG[facility] documented in this encounter Ordered Prescriptions Prescription Sig Dispense Quantity Refills Last Filled Start Date End Date benzonatate (TESSALON) 200 mg capsule Take 1 capsule (200 mg total) by mouth 3 (three) times a day as needed for cough for up to 10 days 42 capsule 3 05/21/2020 1 azithromycin (ZITHROMAX) 250 mg tabletIndications: Cough Take 2 tabs (500 mg) by mouth today, than 1 daily for 4 days. 6 tablet 05/21/2020 1 acyclovir (ZOVIRAX) 800 mg tabletIndications: Disseminated herpes zoster Take 1 tablet (800 mg total) by mouth 5 (five) times a day for 7 days 35 tablet 05/21/2020 1 methylPREDNISolone (MEDROL DOSEPACK) 4 mg DosepackIndication s:Disseminated herpes zoster Take as directed on package. 21 tablet 05/21/2020 1 documented in this encounter Progress Notes * Travis Durand MD - 05/21/2020 8:30 AM CST Images from the original note were not included. Subjective/Objective Patient ID: Gerardo Whitt is a 45 y.o. female. Visit Date: 05/21/2020 Chief Complaint Cough (getting worse), Rash (belly and back ), and Fatigue HPI Returns to the office for repeat evaluation. States that she started with a rash to the right lowerabdomen nad back and started 2 days ago . States that they are painful.. She also states that she has a cough that is horrible for the past month after covid. States that she is very fatigued following the covid. The anxiety is under control. Review of Systems Constitutional: Positive for fatigue. Negative for activity change. HENT: Negative for congestion. Eyes: Negative for visual disturbance. Respiratory: Positive for cough and wheezing. Negative for chest tightness. Cardiovascular: Negative for chest pain and leg swelling. Gastrointestinal: Negative for abdominal pain, blood in stool, constipation, diarrhea and nausea. Genitourinary: Negative for difficulty urinating. Musculoskeletal: Negative for arthralgias, back pain and gait problem. Skin: Negative for rash. Neurological: Negative for headaches. Psychiatric/Behavioral: Negative for sleep disturbance. The patient is not nervous/anxious. Physical Exam Vitals signs reviewed. Constitutional: General: She is not in acute distress. Appearance: She is well-developed. HENT: Head: Normocephalic. Right Ear: External ear normal. Left Ear: External ear normal. Eyes: Conjunctiva/sclera: Conjunctivae normal. Pupils: Pupils are equal, round, and reactive to light. Neck: Musculoskeletal: Neck supple. Thyroid: No thyromegaly. Comments: ROM appropriate Cardiovascular: Rate and Rhythm: Normal rate and regular rhythm. Heart sounds: Normal heart sounds. No murmur. No friction rub. No gallop. Pulmonary: Effort: Pulmonary effort is normal. Breath sounds: Normal breath sounds. Comments: cough Abdominal: General: Bowel sounds are normal. There is no distension. Palpations: Abdomen is soft. Tenderness: There is no abdominal tenderness. Musculoskeletal: Comments: ROM appropriate Skin: General: Skin is warm and dry. Capillary Refill: Capillary refill takes less than 2 seconds. Comments: Right T11 dermatomal rash with clusters of fluid filled vescicles Neurological: Mental Status: She is alert and oriented to person, place, and time. Psychiatric: Behavior: Behavior normal. Assessment/Plan Diagnoses and all orders for this visit: Disseminated herpes zoster (B02.7) (Primary) Comments: condition acute. medrol dose pack, acyclovir Anxiety (F41.9) Comments: conditoin chronic stbale refill buspar Cough (R05) Comments: conditon acute. cxr, z pack, tessalon peerles Orders: - XR Chest Pa Lateral 2 Vw; Future Fatigue, unspecified type (R53.83) Comments: condition acute. check labs. Orders: - CBC with auto differential; Future - TSH; Future Travis Durand MD ER LUGGAGE documented in this encounter Plan of Treatment Not on file documented as of this encounter Procedures Procedure Name Priority Date/Time Associated Diagnosis Comments CBC WITH AUTO DIFFERENTIAL Routine 05/21/2020 10:24 AM PORTER [facility]GG[facility] Fatigue, unspecified type TSH Routine 05/21/2020 10:24 AM PORTER [facility] Fatigue, unspecified type documented in this encounter Results * TSH (05/21/2020 10:24 AM PORTER [facility]GG[facility]) TSH 1.50 0.27 - 4.20 uIU/mL [facility] Blood specimen (specimen) 05/21/2020 10:24 AM PORTER LUGGAGE 05/21/2020 10:55 AM PORTER [facility]GG[facility] Narrative Resulting Agency Comment CLI us Travis Durand MD LAB BLOOD ORDERABLES Final Resu lt [facility] [address] [place], [place] [address] [phone] * (ABNORMAL) CBC with auto differential (05/21/2020 10:24 AM PORTER LUGGAGE) Pathologist [facility] WBC 5.1 3.8 - 9.9 X10 3/ul [facility] RBC 4.00 3.90 - 5.20 x10 6/ul [facility] Hemoglobin 13.0 11.9 - 15.5 g/dL [facility] Hct 40.1 35.6 - 45.5 % [facility] MCV 100.3(H) 81.3 - 96.4 fl [facility] MCH 32.5 27.1 - 33.3 pg [facility] MCHC 32.4 32.3 - 35.7 g/dl [facility] RDW 12.8 11.1 - 14.9 % [facility] Plt Count 292 150 - 400 x10 3/ul [facility] MPV 9.2 9.1 - 12.3 fl [facility] Neut % 53.3 % [facility] Immature Gran % 0.2 % [facility] Lymph % 33.2 % [facility] [place] % 9.7 % [facility] Eos % 2.6 % [facility] AUTO BASO % 1.0 % [facility] NEUTROPHIL ABS # 2.7 1.7 - 6.5 x10 3/ul [facility] Immature Gran # 0.0 0.0 - 0.1 x10 3/ul [facility] Absolute Lymphs (auto) 1.7 0.8 - 3.3 x10 3/ul [facility] Absolute Monos (auto) 0.5 0.2 - 0.8 x10 3/ul [facility] Absolute Eos (auto) 0.1 0.0 - 0.5 x10 3/ul [facility] BASOPHIL ABS # 0.1 0.0 - 0.1 x10 3/ul [facility] Nucleat RBC Rel Count 0.0 #/100WBC [facility] NRBC abs 0.00 0.00 - 0.01 x10 3/ul [facility] Absolute Neutrophils 2,700 200 - 8,000 /ul [facility] Blood specimen (specimen) 05/21/2020 10:24 AM PORTER [facility]GG[facility] 05/21/2020 10:55 AM PORTER [facility] Narrative Resulting Agency Comment CLI us Travis Durand MD LAB BLOOD ORDERABLES Final Resu lt Performing Organization Address [facility]/State/[facility] Co sd Phone Number [address] [address], [facility] [phone] * XR Chest Pa Lateral 2 Vw (05/21/2020 9:18 AM PORTER [facility]GG[facility]) Anatomical Region Laterality Modality Body, Chest N/A Radiographic Gabby ging 05/22/2020 9:22 AM PORTER [facility] Narrative 05/22/2020 9:22 AM PORTER [facility] Patient Name: GERARDO WHITT ?Ordering Dr: Travis Durand MD ?? D.O.B: 1975 ? Exam Date: 05/21/20 ?? 09 ?? Age: 45 ?Sex: Female ? MR#: [id number] ?? Loc: ? RADIOLOGY REPORT ?? Order #[id number] ?? Radiology ? Chest 2 Views ? Signed ?? EXAM DESCRIPTION: ?? Chest 2 Views ? REASON FOR STUDY: ?? COVID + Dec. continued dry cough ? TECHNIQUE: ?? Frontal and lateral radiographic views of the chest acquired. ? COMPARISON: ?? Chest radiography from 11/04/2012. ? FINDINGS: ? LUNGS/PLEURA: ??No focal consolidation or pneumothorax. No pleural effusion. ? HEART/MEDIASTINUM: ??Heart size is normal. Normal mediastinal and hilar ?? contours. ? HARDWARE/LINES/TUBES: ??None. ? BONES: ??No acute findings. ? OTHER: ??No other significant finding. ? IMPRESSION: ?? No acute cardiopulmonary abnormality. ? THIS IS AN ELECTRONICALLY VERIFIED FINAL REPORT ?? 05/22/2020 9:22 AM - Electronically signed by Rogerio Frazier II D.O. ?? Rogerio Chaney.O. ? DW ?? D: ??05/22/2020 9:22 AM ?? T: ? Report ID: [id number] ?? Reading Location: ??[id number] ? REPORT ELECTRONICALLY SIGNED IN OTHER VENDOR SYSTEM ?? Resulting Agency Comment O Procedure Note Rogerio Frazier II, - 05/22/2020 Patient Name: GERARDO WHITT Dr: Travis Durand MD D.O.B: 1975 Exam Date: 05/21/20917 Age: 45 Sex: Female MR#: [id number] Loc: RADIOLOGY REPORT Order #[id number] Radiology Chest 2 Views Signed EXAM DESCRIPTION: Chest 2 Views REASON FOR STUDY: COVID + Dec. continued dry cough TECHNIQUE: Frontal and lateral radiographic views of the chestacquired. COMPARISON: Chest radiography from 11/04/2012. FINDINGS: LUNGS/PLEURA: No focal consolidation or pneumothorax. No pleuraleffusion. HEART/MEDIASTINUM: Heart size is normal. Normal mediastinal and hilar contours. HARDWARE/LINES/TUBES: None. BONES: No acute findings. OTHER: No other significant finding. IMPRESSION: No acute cardiopulmonary abnormality. THIS IS AN ELECTRONICALLY VERIFIED FINAL REPORT 05/22/2020 9:22 AM - Electronically signed by Rogerio AYALA T: Report ID: [id number] Reading Location: [place] [address] REPORT ELECTRONICALLY SIGNED IN OTHER VENDOR SYSTEM Travis Durand MD IMG XR PROCEDURES Final Result documented in this encounter Visit Diagnoses Diagnosis Disseminated herpes zoster- Primary Other specified herpes zoster complications Anxiety Anxiety state, unspecified Cough Fatigue, unspecified type Cough documented in this encounter Discontinued Medications Medication Sig Discontinue Reason Start Date End Da te HYDROcodone-acetaminophe n (NORCO) 5-325 mg per tabletIndications:Pain TK 1 T PO Q 6 H Therapy completed 01/21/2018 021 cyclobenzaprine ER (AMRIX) 15 mg 24 hr capsule Take 15 mg by mouth daily Therapy completed 08/10/2017 05/21/2020 potassium chloride (KLOR-CON 10 ORAL) Take 1 tablet by mouth daily as needed Therapy completed 05/21/2020 Chantix Starting Month Box 0.5 mg (11)- 1 mg (42) tablet FPD Therapy completed 07/07/2019 05/21/2020 documented as of this encounter Historical Medications * This list may reflect changes made after this encounter. HYDROcodone-aceta minophen (NORCO) 10-325 mg per tablet Take 1 tablet by mouth every 6 (six) hours as needed for pain 05/03/2020 08/03/2022 added in this encounter Care Teams Partition Assembly Machine Operator Relationship Specialty Start Date End Date Travis Durand MD PCP - General Family Medicine 09/16/19 05/31/22 documented as of this encounter
--- OUTSIDE RECORDS SUMMARY | 2024-04-05 02:15 | XMS_ITS | Encounter Summary ---
Author Organization [facility] Healthcare Address [address] [place] [address] Care Team Providers Care Hand Tube Winder Name Role Phone Travis Durand MD Primary Care Provider [phone] Reason for Referral * Diagnostic Imaging (Routine) - Closed Specialty Diagnoses / Procedures Referred By Contac t Referred To Contact Diagnoses Cough Procedures XR Chest Pa Lateral 2 Vw Travis Durand MD Phone: tel: fax: [address] [address] Referral ID Status Reason Start Date Expiration Date Visits Re quested Visits Authorized [id number] Closed 05/21/2020 06/20/2021 1 1 NICAL DEVELOPER Encounter Details Date Type Department Care Team (Late st Contact Info) Description 05/21/2020 9:15 AM TECHNICAL DEVELOPER Hospital Encounter [facility] Travis Durand MD [address] [place] [id number] Cough Social History Tobacco Use Types Packs/Day Years [...] this encounter Medications at Time of Discharge acyclovir (ZOVIRAX) 800 mg tabletIndication s:Disseminated herpes zoster Take 1 tablet (800 mg total) by mouth 5 (five) times a day for 7 days 35 tablet 05/21/2020 05/28/2020 azithromycin (ZITHROMAX) 250 mg tabletIndication s:Cough Take 2 tabs (500 mg) by mouth today, than 1 daily for 4 days. 6 tablet 05/21/2020 05/26/2020 benzonatate (TESSALON) 200 mg capsule Take 1 capsule (200 mg total) by mouth 3 (three) times a day as needed for cough for up to 10 days 42 capsule 3 05/21/2020 05/31/2020 methylPREDNISolo ne (MEDROL DOSEPACK) 4 mg DosepackIndicati ons:Disseminated herpes zoster Take as directed on package. 21 tablet 05/21/2020 05/27/2020 al & mag hydroxide simethicone-diph enhydramine-lido loi-nystatin (MAGIC MOUTHWASH) suspension 2-6-8-1Indicatio ns:Stomatitis Swish and swallow 10 mL 4 (four) times a day 300 mL 09/05/2019 08/01/2022 busPIRone (BUSPAR) 15 mg tabletIndication s:Situational anxiety Take 1 tablet (15 mg total) by mouth 2 (two) times a day 60 tablet 3 02/13/2020 08/23/2020 furosemide (LASIX) 20 mg tablet Take 1 tablet (20 mg total) by mouth daily 3 11/10/2018 09/26/2022 HYDROcodone-acet aminophen (NORCO) 10-325 mg per tablet Take 1 tablet by mouth every 6 (six) hours as needed for pain 05/03/2020 08/03/2022 metoprolol XL (TOPROL-XL) 25 mg extended release tablet TK 1 T PO QD 07/23/2019 01/04/20 22 documented as of this encounter Plan of Treatment Not on file documented as of this encounter Procedures Procedure Name Priority Date/Time Associated Diagnosis Comments XR CHEST PA LATERAL 2 VIEWS Schedule Routine, Read Routine (OP Routine) 05/21/2020 9:18 AM TECHNICAL DEVELOPER Cough documented in this encounter Results * XR Chest Pa Lateral 2 Vw (05/21/2020 9:18 AM TECHNICAL DEVELOPER) Anatomical Region Laterality Modality Body, Chest N/A Radiographic Gabby ging 05/22/2020 9:22 AM TECHNICAL DEVELOPER Narrative 05/22/2020 9:22 AM TECHNICAL DEVELOPER Patient Name: GERARDO WHITT ?Ordering Dr: Travis Durand MD ?? D.O.B: 1975 ? Exam Date: 05/21/20 ?? 09 ?? Age: 45 ?Sex: Female ? MR#: [id number] ?? Loc: ? RADIOLOGY REPORT ?? Order #[id number] ?? Radiology ? Chest 2 Views ? [...] AM - Electronically signed by Rogerio Frazier II, D.O. ?? Rogerio Frazier II, D.O. ? DW ?? D: ??05/22/2020 9:22 AM ?? T: ? Report ID: [id number] ?? Reading Location: ??[id number] ? REPORT ELECTRONICALLY SIGNED IN OTHER VENDOR SYSTEM ?? Resulting Agency Comment O Procedure Note Rogerio Frazier II, - 05/22/2020 Patient Name: GERARDO WHITT Dr: Travis Durand MD, D.O.B: 1975 Exam Date: 05/21/20917 Age: 45 Sex: Female MR#: [id number] Loc: RADIOLOGY REPORT Order #[id number] Radiology Chest 2 Views Signed EXAM DESCRIPTION: Chest 2 Views REASON FOR STUDY: COVID + cough TECHNIQUE: Frontal and lateral radiographic views [...] signed by Rogerio AYALA T: Report ID: [id number] Reading Location: [place] [address] REPORT ELECTRONICALLY SIGNED IN OTHER VENDOR SYSTEM Travis Durand MD IMG XR PROCEDURES Final Result documented in this encounter Visit Diagnoses Diagnosis Cough documented in this encounter Care Teams Hand Tube Winder Relationship Specialty Start Date End Date Travis Durand MD PCP - General Family Medicine 09/16/19 05/31/22 documented as of this encounter
--- OUTSIDE RECORDS SUMMARY | 2024-04-05 02:15 | XMS_ITS | Encounter Summary ---
Author Organization [facility] Address [address] [address] Care Team Providers Care Special Warfare Boat Operator Name Role Phone Travis Durand MD Primary Care Provider Encounter Details Date Type Department Care Team (Late st Contact Info) Description 09/09/[address] [facility] Family Medicine [address] [place] [address] Travis Durand MD [facility] [address] [place] [id number] Social History Tobacco Use Types Packs/Day Years [...] (ELAVIL) 25 mg tabletIndications: Primary insomnia Take 1 tablet (25 mg total) by mouth nightly 30 tablet 2 09/09/2020 documented in this encounter Miscellaneous Notes * Telephone Encounter - Viky Crain RN - 09/09/2020 11:[address] Durand was suppose to give her something for sleep Per yesterdays not she was to get elavil 25 hs. I will send script now documented in this encounter Plan of Treatment Not on file documented as of this encounter Visit Diagnoses Diagnosis Primary insomnia- Primary Persistent disorder of initiating or maintaining sleep documented in this encounter Care Teams Special Warfare Boat Operator Relationship Specialty Start Date End Date Travis Durand MD PCP - General Family Medicine 09/16/19 05/31/22 documented as of this encounter
--- OUTSIDE RECORDS SUMMARY | 2024-04-05 02:17 | XMS_ITS | Encounter Summary ---
Author Organization [facility] Medical Group Address [address] [address] Care Team Providers Care Deburrer Strip Name Role Phone Ashley Lamar MD Primary Care Provider [phone] Reason for Visit * Reason Onset Date Comments Illness 09/05/2019 Encounter Details Date Type Department Care Team (Late st Contact Info) Description 09/05/2019 Telephone [facility] Family Medicine [address] [place] [address] [place] [address] [place] [address] [address] Illness Social History Tobacco Use Types Packs/Day Years [...] Refills Last Filled Start Date End Date al & mag hydroxide simethicone-diphen hydramine-lidocain e-nystatin (MAGIC MOUTHWASH) suspension 4-2-6-1Indications :Stomatitis Swish and swallow 10 mL 4 (four) times a day 300 mL 09/05/2019 3 documented in this encounter Miscellaneous Notes * Telephone Encounter - Kyara Nj MA - 09/05/2019 1:05 PM CDT Spoke to pt Labs [facility] to [facility] rx sent to robert * Telephone Encounter - Vira Josue PA - 09/05/2019 12:46 PM CDT Let's get cbc, cmp, tsh, free T4, b12/folate, sed rate. We have performed w/u for her recurrent infections. Immunoglobulins were normal. She saw ENT for her recurrent thrush and they dx her with stomatitis. She has responded to magic mouthwash in the past so let's try this * Telephone Encounter - Kyara Nj MA - 09/05/2019 9:04 AM CDT Pt lvm to have someone call re her symptoms and lab work Spoke to pt She has been sick off on for over a year She has had thrush for 2 weeks Facial edema--puffiness no sob Diarrhea Should she have labs then come in for an appt? robert castillo documented in this encounter Plan of Treatment Not on file documented as of this encounter Procedures Procedure Name Priority Date/Time Associated Diagnosis Comments VITAMIN B12 AND FOLATE Routine 0 10:34 AM CDT Stomatitis Loss of taste CBC WITH AUTO DIFFERENTIAL Routine 09/12/2019 10:34 AM CDT Stomatitis Loss of taste TSH Routine 09/12/2019 10:34 AM CDT Stomatitis Loss of taste T4, FREE Routine 09/12/2019 10:34 AM CDT Stomatitis Loss of taste COMPREHENSIVE METABOLIC PANEL Routine 09/12/2019 10:34 AM CDT Stomatitis Loss of taste documented in this encounter Results * Vitamin B12 and Folate (09/12/2019 10:34 AM CDT) Vitamin B12 276 232 - 1,245 pg/mL [facility] - 01 Folate 14.8 >3.0 ng/mL [facility] - 01 Comment: A serum folate concentration of less than 3.1 ng/mL is considered to represent clinical deficiency. Blood specimen (specimen) 09/12/2019 10:34 AM CDT 09/12/2019 Narrative [facility] - 09/13/2019 8:10 AM CDT Performed at: ??[address] ??[id number] Textile Pin Worker: Zhao Pugh PhD, Phone: ??[phone] Vira RUSHING LAB BLOOD ORDERABLES Fin al Result Performing Organization Address [facility] de Phone Number [facility] - 01 * T4, free (09/12/2019 10:34 AM CDT) T4,Free(Direct) 0.84 0.82 - 1.77 ng/dL [facility] - 01 Blood specimen (specimen) 09/12/2019 10:34 AM CDT 09/12/2019 Narrative [facility] - 09/13/2019 8:10 AM CDT Performed at: ??[address] ??[id number] Textile Pin Worker: Zhao Pugh PhD, Phone: ??[phone] Vira RUSHING LAB BLOOD ORDERABLES Fin al Result Performing Organization Address [facility]/ZIP Co de Phone Number [facility] - 01 * TSH (09/12/2019 10:34 AM CDT) TSH 1.310 0.450 - 4.500 uIU/mL [facility] - 01 Blood specimen (specimen) 09/12/2019 10:34 AM CDT 09/12/2019 Narrative [facility] - 09/13/2019 8:10 AM CDT Performed at: ??01 - [facility] [address] ??[id number] Textile Pin Worker: Zhao Pugh PhD, Phone: ??[phone] Vira RUSHING LAB BLOOD ORDERABLES Fin al Result [facility] - * (ABNORMAL) Comprehensive metabolic panel (09/12/2019 10:34 AM CDT) Glucose 144(H) 65 - 99 mg/dL [facility] - 01 BUN 8 6 - 24 mg/dL [facility] - 01 Creatinine, Serum 0.71 0.57 - 1.00 mg/dL [facility] - 01 eGFR If NonAfricn Am 105 >59 mL/min/1.7 3 [facility] - 01 eGFR If Africn Am 121 >59 mL/min/1.7 3 [facility] - 01 BUN/creat ratio 11 9 - 23 [facility] - 01 Sodium 138 134 - 144 mmol/L [facility] - 01 Potassium, sr 3.9 3.5 - 5.2 mmol/L [facility] - 01 Chloride 103 96 - 106 mmol/L [facility] - 01 CO2 19(L) 20 - 29 mmol/L [facility] - 01 Calcium 8.6(L) 8.7 - 10.2 mg/dL [facility] - 01 Protein, sr 7.0 6.0 - 8.5 g/dL [facility] - 01 Albumin 4.6 3.8 - 4.8 g/dL [facility] - 01 Globulin, Total 2.4 1.5 - 4.5 g/dL [facility] - 01 A/G Ratio 1.9 1.2 - 2.2 [facility] - 01 Bilirubin, Total 0.4 0.0 - 1.2 mg/dL [facility] - 01 Alk phos 65 39 - 117 IU/L [facility] - 01 AST 33 0 - 40 IU/L [facility] - 01 ALT 6 0 - 32 IU/L [facility] - 01 Blood specimen (specimen) 09/12/2019 10:34 AM CDT 09/12/2019 Narrative [facility] - 09/13/2019 8:10 AM CDT Performed at: ??01 - [facility] [address] ??[id number] Textile Pin Worker: Zhao Pugh PhD, Phone: ??[phone] us Vira RUSHING LAB BLOOD ORDERABLES Fin al Result [facility] - 01 * (ABNORMAL) CBC with auto differential (09/12/2019 10:34 AM CDT) WBC 3.7 3.4 - 10.8 x10E3/uL [facility] - 01 RBC 2.25(LL) 3.77 - 5.28 x10E6/uL [facility] - 01 Hgb 9.2(L) 11.1 - 15.9 g/dL [facility] - 01 Hct 26.6(L) 34.0 - 46.6 % [facility] - 01 MCV 118(H) 79 - 97 fL [facility] - 01 MCH 40.9(H) 26.6 - 33.0 pg [facility] - 01 MCHC 34.6 31.5 - 35.7 g/dL [facility] - 01 Rdw 17.7(H) 11.7 - 15.4 % [facility] - 01 Platelets 258 150 - 450 x10E3/uL [facility] - 01 Neutrophils pct 49 Not Estab. % [facility] - 01 Lymphs pct 32 Not Estab. % [facility] - 01 Monocytes pct 12 Not Estab. % [facility] - 01 Eosinophils pct 4 Not Estab. % [facility] - 01 Basophil pct 2 Not Estab. % [facility] - 01 Neutrophil abs 1.9 1.4 - 7.0 x10E3/uL [facility] - 01 Lymphs (Absolute) 1.2 0.7 - 3.1 x10E3/uL [facility] - 01 Monocyte abs 0.4 0.1 - 0.9 x10E3/uL [facility] - 01 Eosinophils, abs 0.2 0.0 - 0.4 x10E3/uL [facility] - 01 Basophils, abs 0.1 0.0 - 0.2 x10E3/uL [facility] - 01 Immature Granulocytes 1 Not Estab. % [facility] - 01 Immature Grans (Abs) 0.0 0.0 - 0.1 x10E3/uL [facility] - 01 Blood specimen (specimen) 09/12/2019 10:34 AM CDT 09/12/2019 Narrative [facility] - 09/13/2019 8:10 AM CDT Performed at: ??01 - [facility] [address] ??[id number] Textile Pin Worker: Zhao Pugh PhD, Phone: ??[phone] Vira RUSHING LAB BLOOD ORDERABLES Fin al Result [facility] - 01 documented in this encounter Visit Diagnoses Diagnosis Loss of taste- Primary Disturbances of sensation of smell and taste Stomatitis Stomatitis and mucositis, unspecified documented in this encounter Discontinued Medications Medication Sig Discontinue Reason Start Date End Da te al & mag hydroxide simethicone-diphenhydram iaw-jeogfmtcr-ndjkvlxb (MAGIC MOUTHWASH) suspension 4-4-5-1Indications:Stoma titis Swish and swallow 10 mL 4 (four) times a day Reorder 03/17/2019 09/05/2019 documented as of this encounter Care Teams Deburrer Strip Relationship Specialty Start Date End Date Ashley Lamar MD PCP - General 08/09/19 09/15/19 documented as of this encounter
--- OUTSIDE RECORDS SUMMARY | 2024-04-05 02:17 | XMS_ITS | Encounter Summary ---
Author Organization [facility] Address [address] [address] Care Team Providers Care Chest Painting Leader Name Role Phone Travis Durand MD Primary Care Provider [phone] Reason for Visit * Reason Onset Date Comments Test Results 09/23/2019 Encounter Details Date Type Department Care Team (Late st Contact Info) Description 09/23/2019 Telephone [facility] Family Medicine [address] [place] [address] Travis Durand MD [address] [place] [address] [address] [place] [address] Test Results Social History Tobacco Use Types [...] encounter Miscellaneous Notes * Telephone Encounter - Vira Josue PA - 09/23/2019 4:16 PM CDT We are referring her to GI * Telephone Encounter - Kyara Nj MA - 09/23/2019 3:29 PM CDT Spoke to pt Her labs were wnl, she wants to know what is next step? * Telephone Encounter - Gaby Jurado - 09/23/2019 2:52 PM CDT Results of lab work. Done on Sunday at [facility] documented in this encounter Plan of Treatment Not on file documented as of this encounter Visit Diagnoses Not on filedocumented in this encounter Care Teams Chest Painting Leader Relationship Specialty Start Date End Date Travis Durand MD PCP - General Family Medicine 09/16/19 05/31/22 documented as of this encounter
--- OUTSIDE RECORDS SUMMARY | 2024-04-05 02:17 | XMS_ITS | Encounter Summary ---
Author Organization [facility] Healthcare Address [address] [place] [address] Care Team Providers Care Space Studies Faculty Member Name Role Phone Travis Durand MD Primary Care Provider [phone] Encounter Details Date Type Department Care Team (Late st Contact Info) Description 08/08/2019 11:08 AM CDT Hospital Encounter [facility] Vira Josue, KRISTAN [address] [facility] [place] [address] Social History Tobacco Use Types [...] Time of Discharge al & mag hydroxide simethicone-diphe nhydramine-lidoca ine-nystatin (MAGIC MOUTHWASH) suspension 0-4-6-1Indication s:Stomatitis Swish and swallow 10 mL 4 (four) times a day 300 mL 03/17/2019 09/05/2019 busPIRone (BUSPAR) 15 mg tabletIndications :Generalized Anxiety Disorder Take 1 tablet (15 mg total) by mouth 2 (two) times a day as needed (anxiety) 60 tablet 1 01/17/2019 08/12/2019 Chantix Starting Month Box 0.5 mg (11)- 1 mg (42) tablet FPD 07/07/2019 05/21/2020 cyclobenzaprine ER (AMRIX) 15 mg 24 hr capsule Take 15 mg by mouth daily 08/10/2017 05/21/2020 furosemide (LASIX) 20 mg tablet Take 1 tablet (20 mg total) by mouth daily 3 11/10/2018 09/26/2022 HYDROcodone-aceta minophen (NORCO) 5-325 mg per tabletIndications :Pain TK 1 T PO Q 6 H 0 01/21/2018 05/21/2020 lisinopril (PRINIVIL,ZESTRIL ) 5 mg tablet Take 1 tablet by mouth daily 3 12/14/2018 02/13/2020 metoprolol XL (TOPROL-XL) 25 mg extended release tablet TK 1 T PO QD 07/23/2019 01/03/2022 potassium chloride (KLOR-CON 10 ORAL) Take 1 tablet by mouth daily as needed 05/21/2020 topiramate (TOPAMAX) 50 mg tabletIndications :Migraine without aura and without status migrainosus, not intractable TAKE 1 TABLET(50 MG) BY MOUTH TWICE DAILY 60 tablet 5 07/14/2019 02/19/2020 documented as of this encounter Plan of Treatment Not on file documented as of this encounter Procedures Procedure Name Priority Date/Time Associated Diagnosis Comments SCAN - LABS 08/09/2019 12:00 AM CDT documented in this encounter Results * SCAN - LABS (08/09/2019 12:00 AM CDT) Narrative 08/09/2019 12:00 AM CDT Ordered by an unspecified provider. us Historical Provider Final Res ult documented in this encounter Visit Diagnoses Not on filedocumented in this encounter Additional Health Concerns Infection Onset Date Last Indicated Resolved Time COVID: Suspected 08/06/2019 08/08/2019 08/10/2019 7:03 AM CDT documented as of this encounter Care Teams Space Studies Faculty Member Relationship Specialty Start Date End Date Travis Durand MD PCP - General 07/02/18 08/08/19 documented as of this encounter
--- OUTSIDE RECORDS SUMMARY | 2024-04-05 02:17 | XMS_ITS | Encounter Summary ---
Author Organization [facility] Medical [facility] Address [address] [address] Care Team Providers Care Teaching Supervisor Name Role Phone Travis Durand MD Primary Care Provider Reason for Visit * Reason Onset Date Comments Med Refill 09/16/2019 Encounter Details Date Type Department Care Team (Late st Contact Info) Description 09/16/2019 Telephone [facility] Family Medicine [address] [place] [address] Vira Josue PA [address] [facility] [address] [address] Med Refill Social History Tobacco Use Types [...] encounter Miscellaneous Notes * Telephone Encounter - Tahira Rizvi MA - 09/18/2019 4:13 PM CDT Pt was notified * Telephone Encounter - Vira Josue PA - 09/17/2019 4:23 PM CDT Let's refer to GI. Fluids, brat diet * Telephone Encounter - Tahira Rizvi MA - 09/17/2019 3:19 PM CDT She has finished the mouthwash Diarrhea is off and on for over a year, she stated that this time its bad like water * Telephone Encounter - Tahira Rizvi MA - 09/17/2019 2:06 PM CDT [facility] * Telephone Encounter - Tahira Rizvi MA - 09/16/2019 4:26 PM CDT [facility] * Telephone Encounter - Vira Josue PA - 09/16/2019 2:43 PM CDT How long has she been experiencing the diarrhea? Is she using magic mouthwash for her thrush? * Telephone Encounter - Tahira Rizvi MA - 09/16/2019 2:33 PM CDT Pt was notified, labs sent Pt c/o diarrhea and thrush * Telephone Encounter - Tahira Rizvi MA - 09/16/2019 2:33 PM CDT ----- Message from KRISTAN Suazo sent at 09/15/2019 9:15 PM CDT ----- She is anemic. Need to check iron panel and ferritin. Was she fasting for this lab? If so, need to check a1c as well because her BS is elevated. If not, BS ok. * Telephone Encounter - Kyara Nj MA - 09/16/2019 8:48 AM CDT Pt called for lab results She would like to know if she should be referred to specialist for her on going diarrhea and other complaints documented in this encounter Plan of Treatment Not on file documented as of this encounter Procedures Procedure Name Priority Date/Time Associated Diagnosis Comments IRON PROFILE W/ IBC Routine 09/19/2019 1 0:27 AM CDT Low iron HEMOGLOBIN A1C Routine 09/19/2019 10:27 AM CDT Elevated blood sugar FERRITIN Routine 09/19/2019 10:27 AM CDT Low iron documented in this encounter Results * Hemoglobin A1c (09/19/2019 10:27 AM CDT) Hgb A1C 5.3 4.8 - 5.6 % [facility] - 01 Comment: ? Prediabetes: 5.7 - 6.4 ? Diabetes: >6.4 ? Glycemic control for adults with diabetes: <7.0 Blood specimen (specimen) 09/19/2019 10:27 AM CDT 09/19/2019 Narrative [facility] - 09/20/2019 8:11 AM CDT Performed at: ??01 - [facility] ??[id number] Anthropology Faculty Member: Zhao Pugh PhD, Phone: ??[phone] Vira RUSHING LAB BLOOD ORDERABLES Fin al Result [facility] - 01 * Ferritin (09/19/2019 10:27 AM CDT) Ferritin 132 15 - 150 ng/mL [facility] - 01 Blood specimen (specimen) 09/19/2019 10:27 AM CDT 09/19/2019 Narrative [facility] - 09/20/2019 8:11 AM CDT Performed at: ??01 - [facility] ??[id number] Anthropology Faculty Member: Zhao Pugh PhD, Phone: ??[phone] Vira RUSHING LAB BLOOD ORDERABLES Fin al Result Performing Organization Address [facility] Co de Phone Number [facility] - 01 * Iron profile w/ IBC (09/19/2019 10:27 AM CDT) Iron Bind.Cap.(TIBC) 297 250 - 450 ug/dL [facility] - 01 UIBC 241 131 - 425 ug/dL [facility] - 01 Iron 56 27 - 159 ug/dL [facility] - 01 Iron saturation 19 15 - 55 % [facility] - 01 Blood specimen (specimen) 09/19/2019 10:27 AM CDT 09/19/2019 Narrative [facility] - 09/20/2019 8:11 AM CDT Performed at: ??01 - [facility] [address] ??[id number] Anthropology Faculty Member: Zhao Pugh PhD, Phone: ??[phone] Vira RUSHING LAB BLOOD ORDERABLES Fin al Result Performing Organization Address City/[facility]/ZIP Co de Phone Number [facility] - 01 documented in this encounter Visit Diagnoses Diagnosis Diarrhea, unspecified type- Primary Elevated blood sugar Other abnormal glucose Low iron Unspecified iron deficiency anemia documented in this encounter Care Teams Teaching Supervisor Relationship Specialty Start Date End Date Travis Durand MD PCP - General Family Medicine 09/16/19 05/31/22 documented as of this encounter
--- OUTSIDE RECORDS SUMMARY | 2024-04-05 02:17 | XMS_ITS | Encounter Summary ---
Author Organization [facility] Medical Group Address [address] [address] Care Team Providers Care Airplane Dispatcher Name Role Phone Travis Durand MD Primary Care Provider Reason for Visit * Reason Onset Date Comments Med Refill 09/24/2019 Encounter Details Date Type Department Care Team (Late st Contact Info) Description 09/24/2019 Telephone [facility] Medical [facility] Family Medicine [address] [place] [address] Travis Durand MD [address] [place] [address] [address] [place] [address] Med Refill Social History Tobacco Use Types [...] times a day Swish in mouth and swallow. 280 mL 09/24/2019 11/23/2019 documented in this encounter Miscellaneous Notes * Telephone Encounter - Kyara Nj MA - 09/24/2019 5:04 PM CDT sent * Telephone Encounter - Vira Josue PA - 09/24/2019 4:53 PM CDT Ok nystatin s/s * Telephone Encounter - Kyara Nj MA - 09/24/2019 12:44 PM CDT Pt lvm to refill nystatin s/s And her referral status Referral have been made, ok to refill nytatin? documented in this encounter Plan of Treatment Not on file documented as of this encounter Visit Diagnoses Not on filedocumented in this encounter Care Teams Airplane Dispatcher Relationship Specialty Start Date End Date Travis Durand MD PCP - General Family Medicine 09/16/19 05/31/22 documented as of this encounter
--- OUTSIDE RECORDS SUMMARY | 2024-04-05 02:17 | XMS_ITS | Encounter Summary ---
Author Organization [facility] Healthcare Address [address] [place] [address] Care Team Providers Care Zinc Plater Name Role Phone Travis Durand MD Primary Care Provider [phone] Encounter Details Date Type Department Care Team (Late st Contact Info) Description 08/08/2019 6:45 [place] [address] Social History Tobacco Use Types Packs/Day Years [...] Procedure Name Priority Date/Time Associated Diagnosis Comments COVID-19 CORONAVIRUS RNA Routine 08/08/2019 1:09 PM CDT documented in this encounter Results * COVID-19 Coronavirus RNA Nasopharyngeal (08/08/2019 1:09 PM CDT) COVID-19 RNA Not Detected [facility] Comment: Interpretive Data Testing performed at [facility] Molecular Infectious Disease Laboratory. The 2019-Novel Coronavirus Assay (COVID-19) Real Time RT-PCR assay is for in vitro diagnostic use under FDA emergency use authorization only. A negative RT-PCR result does not preclude infection with COVID-19 and should not be used as the sole basis for treatment or other patient management decisions. Additional sample types have been validated according to CLIA regulations. ?? Current Interpretive Data was last revised on 2019. Nasopharyngeal 08/08/2019 1: 09 PM CDT 08/08/2019 7:22 PM CDT us Notinfile Unknown LAB MICROBIOLOGY - GENERAL ORD ERABLES Final Result [facility] ESTEVEZ [facility] Department [place] [address] documented in this encounter Visit Diagnoses Not on filedocumented in this encounter Additional Health Concerns Infection Onset Date Last Indicated Resolved Time COVID: Suspected 08/06/2019 08/08/2019 08/10/2019 7:03 AM CDT documented as of this encounter Care Teams Zinc Plater Relationship Specialty Start Date End Date Travis Durand MD PCP - General 07/02/18 08/08/19 documented as of this encounter
--- OUTSIDE RECORDS SUMMARY | 2024-04-05 02:17 | XMS_ITS | Encounter Summary ---
Author Organization [facility] Medical Group Address [address] [facility] [address] [place] [address] Care Team Providers Care Business Risk Consultant Name Role Phone Travis Durand MD Primary Care Provider [phone] Encounter Details Date Type Department Care Team (Late st Contact Info) Description 09/19/2019 Orders Only [facility] [address] [place] [address] Scanning, Provider Social History Tobacco Use Types Packs/Day Years [...] Date/Time Associated Diagnosis Comments SCAN - LABS 09/19/2019 documented in this encounter Results * SCAN - LABS (09/19/2019) us Provider Scanning Final Result documented in this encounter Visit Diagnoses Not on filedocumented in this encounter Care Teams Business Risk Consultant Relationship Specialty Start Date End Date Travis Durand MD PCP - General Family Medicine 09/16/19 05/31/22 documented as of this encounter
--- OUTSIDE RECORDS SUMMARY | 2024-04-05 02:19 | XMS_ITS | Encounter Summary ---
Author Organization [facility] Address [address] [address] Care Team Providers Care Change Lead Name Role Phone Travis Durand MD Primary Care Provider Reason for Visit * Reason Comments Follow-up seen ENT, anahy Encounter Details Date Type Department Care Team (Late st Contact Info) Description 03/17/2019 1:45 PM MULTIPLE KNIFE EDGE TRIMMER OPERATOR Office Visit [facility] [address] [place] [address] Vira Josue PA [address] [address] Stomatitis (Primary Dx); Recurrent infections; Diarrhea, unspecified type Social History Tobacco Use Types [...] Sign Reading Time Taken Comments Blood Pressure 110/70 03/17/2019 3:04 PM MULTIPLE KNIFE EDGE TRIMMER OPERATOR Pulse 124 03/17/2019 3:04 PM MULTIPLE KNIFE EDGE TRIMMER OPERATOR Temperature 36.7 ??C (98 ??F) 03/17/2019 3:04 PM MULTIPLE KNIFE EDGE TRIMMER OPERATOR Respiratory Rate 18 03/17/2019 3:04 PM MULTIPLE KNIFE EDGE TRIMMER OPERATOR Oxygen Saturation 99% 03/17/2019 3:04 PM MULTIPLE KNIFE EDGE TRIMMER OPERATOR Inhaled Oxygen Concentration - - Weight 56.7 kg (125 lb) 03/17/2019 3:04 PM MULTIPLE KNIFE EDGE TRIMMER OPERATOR Height 154.9 cm (5' 1 ) 03/17/2019 3:04 PM MULTIPLE KNIFE EDGE TRIMMER OPERATOR Body Mass Index 23.62 03/17/2019 3:04 PM MULTIPLE KNIFE EDGE TRIMMER OPERATOR documented in this encounter Patient Instructions * Patient Instructions* Vira Josue PA - 03/17/2019 1:45 PM MULTIPLE KNIFE EDGE TRIMMER OPERATOR Patient Education Oral Mucositis WHAT YOU NEED TO KNOW: Oral mucositis is inflammation in and around your mouth. DISCHARGE INSTRUCTIONS: Follow up with your healthcare provider as directed: You may need to return for tests if your symptoms do not improve within 2 weeks. Write down your questions so you remember to ask them during yourvisits. Risks: You may lose weight because you are not able to eat. Oral mucositis may come back after treatment. Recurrent oral mucositis could cause scars that make it hard for you to chew or swallow . Youcould develop a life-threatening infection. Manage your symptoms: Oral mucositis usually gets better within 2 to 6 weeks. You can do the following to make your mouth feel better: ?? Do not smoke. Smoking can make mouth sores worse. If you smoke, it is never too late to quit. Ask your healthcare provider for information if you need help quitting. ?? Eat soft, blended, moist foods. Puddings, milkshakes, broths, soups, and cooked cereals are lesslikely to bother your mouth. Eat food that is lukewarm or cool. ?? Do not eat anything that could burn, sting, or scratch your mouth. Examples are oranges, pineapples, hot peppers, potato chips, toast, and alcohol. ?? Take small bites, chew slowly, and sip water while you eat. Rinse your mouth with water after meals. ?? Rinse with a baking soda or salt solution to remove bacteria and food, and to prevent or treat mouth pain and sores. ?? Mix ?? teaspoon baking soda or salt with 8 ounces of warm water. ?? Rinse your mouth at least 4 to 6 times a day with this solution. You may rinse with plain water instead if it feels better to you. ?? Do not use store-bought mouthwash. It contains alcohol and other chemicals that can irritate your mouth. Do not smoke: Smoking can increase your risk for mouth sores or make them worse. If you smoke, it is never too late to quit. Ask your healthcare provider for information if you need help quitting. Medicines: ?? Medicines can help decrease pain or swelling in your mouth. You may also need medicine to prevent or treat an infection. Medicine may be given as a pill, an ointment, or a mouthwash. ?? Take your medicine as directed. Contact your healthcare provider if you think your medicine is not helping or if you have side effects. Tell him if you are allergic to any medicine. Keep a list ofthe medicines, vitamins, and herbs you take. Include the amounts, and when and why you take them. Bring the list or the pill bottles to follow-up visits. Carry your medicine list with you in case of a n emergency. Prevent oral mucositis in the future: ?? Gently brush your teeth, gums, and tongue after every meal and before bed. Use a soft toothbrushand plain fluoride toothpaste. Let your toothbrush air dry after each use to prevent bacteria growth. Replace your toothbrush often. Ask if it is safe to floss your teeth. ?? If you wear dentures, make sure they fit well. Ask your dentist if your dentures can be refittedor if you need new dentures. Be extra careful when you put in or remove dentures. Try to prevent any injuries to your gums that could lead to sores or infection. Wear your dentures during the day only. Soak them in denture solution at night. Ask how to safely clean your gums. ?? Eat a variety of healthy foods. Examples are fruits, vegetables, whole-grain breads, low-fat dairy products, beans, lean meats, and fish. Heathy foods give your body the vitamins and minerals it needs, and may prevent mucositis. ?? Avoid any food or drug that triggers mucositis. Some fruit, nuts, shellfish, cinnamon, chewing gum, and toothpaste may trigger mucositis or other symptoms of an allergic reaction. Contact your healthcare provider if: ?? You have a fever or chills. ?? Your symptoms do not get better within 2 weeks. ?? Your symptoms get worse, even after treatment. ?? You have questions or concerns about your condition or care. Seek care immediately or call 911: ?? Your heart is beating fast. ?? You have trouble breathing. ?? You cannot eat or drink. ?? 2017 3nder Information is for End User's use only and may not be sold, redistributed or otherwise used for commercial purposes. All illustrations and images included in CareNotes?? are the copyrighted property of [employer] or [employer]. The above information is an educational advisor only. It is not intended as medical advice for individual conditions or treatments. Talk to your doctor, nurse or pharmacist before following any medical regimen to see if it is safe and effective for you. IPLE KNIFE EDGE TRIMMER OPERATOR documented in this encounter Ordered Prescriptions Prescription Sig Dispense Quantity Refills Last Filled Start Date End Date al & mag hydroxide simethicone-diphen hydramine-lidocain e-nystatin (MAGIC MOUTHWASH) suspension 3-7-2-1Indications :Stomatitis Swish and swallow 10 mL 4 (four) times a day 300 mL 03/17/2019 0 documented in this encounter Progress Notes * Vira Josue PA - 03/17/2019 1:45 PM CST Images from the original note were not included. CHIEF COMPLAINT: Chief Complaint Patient presents with ??? Follow-up seen anahy GREGORIO SUBJECTIVE: She is a 44 y.o. female who presents today for follow-up on thrush. States she saw Dr. Montez is office who diagnosed her with stomatitis and performed autoimmune workup, which was essentially unremarkable. Patient states that she feels good right now, but states that she still has gotten recurrent episodes of the ???thrush. She also notes that she has been experiencing diarrhea for the past 3 weeks. States that after she eats she immediately has watery stools. She notes she has abdominal cramping, but otherwise denies any abdominal pain, dark/bloody stools, nausea or vomiting, fevers/chills. She denies any new medications other than probiotic she has started taking daily. She notes that s he feels like she gets infections easily and states that she thinks that she recalls several years ago that she was told that she had a ???immune deficiency?? , but states that she never followed up with this. She denies any other new sx at this time, including dysuria. ROS: Review of Systems Constitutional: Negative for appetite change and fever. HENT: Negative for ear pain, rhinorrhea and trouble swallowing. thrush Eyes: Negative for pain and visual disturbance. Respiratory: Negative for cough, chest tightness and shortness of breath. Cardiovascular: Negative for chest pain and leg swelling. Gastrointestinal: Positive for diarrhea. Negative for abdominal pain, blood in stool, nausea and vomiting. Endocrine: Negative for cold intolerance and heat intolerance. Genitourinary: Negative for difficulty urinating, dysuria and frequency. Musculoskeletal: Negative for arthralgias, back pain and myalgias. Skin: Negative for color change and rash. Allergic/Immunologic: Negative for food allergies. Neurological: Negative for dizziness, syncope, weakness, light-headedness and headaches. Hematological: Does not bruise/bleed easily. Psychiatric/Behavioral: Negative for confusion, hallucinations and suicidal ideas. The patient is not nervous/anxious. PHYSICAL EXAM: Vitals: 03/17/19 1504 BP: 110/70 Pulse: 124 Resp: 18 Temp: 36.7 ??C (98 ??F) SpO2: 99% Weight: 56.7 kg (125 lb) Height: 154.9 cm (5' 1 ) Body mass index is 23.62 kg/m??. GENERAL: Patient is awake alert and oriented x3 in no acute distress. The patient is well-nourishedand well-developed and, in general, well-appearing. Patient is seated on the exam table. Patient ispleasant and cooperative with the interview and exam. SKIN: No rashes, scars, or moles noted. HEENT: Head is normocephalic and atraumatic. Tympanic membranes are clear bilaterally. Oral mucosa is pink and moist, no tonsillar exudates and no oral pharyngeal lesions. NECK: No cervical lymphadenopathy noted. No thyromegaly appreciated. CHEST: No chest wall tenderness noted. Lungs are clear to auscultation bilaterally. No wheezes, rhonchi, or rales appreciated. CARDIOVASCULAR: Heart is in regular rate and rhythm. S1 and S2 are auscultated. No rubs, gallops, or murmurs appreciated. ABDOMEN: Soft, nontender, and nondistended. There are positive bowel sounds in all 4 quadrants. No masses or hepatosplenomegaly noted. EXTREMITIES: No lower extremity edema noted bilaterally. No calf tenderness noted bilaterally. No clubbing or cyanosis noted. 2+ pulses in LE b/l. NEUROLOGIC: Gait was unremarkable. No focal neurologic deficits observed. PSYCH: Appropriate affect. Denies suicidal or homicidal ideation. Assessment/Plan Diagnoses and all orders for this visit: Stomatitis (K12.1) (Primary) - IgG; Future - IgA; Future - al & mag hydroxide lmzrvdonuzm-ynbvalecsnmzxkp-rynrnsqww-nystatin (MAGIC MOUTHWASH) suspension 1-1-1-1; Swish and swallow 10 mL 4 (four) times a day Reviewed ENT notes. Will give pt script magic mouthwash to use prn for stomatitis. Will check immunoglobulins. RTC/call should sx return., worsen. Pt agreeable to plan Recurrent infections (B99.9) - IgG; Future - IgA; Future - IMMUNOGLOBULIN M; Future See above. Will check immunoglobulins. Diarrhea, unspecified type (R19.7) - CBC with auto differential; Future - Comprehensive metabolic panel; Future - TSH+Free T4; Future Will check labs today. Encouraged fluids, brat diet. RTC/call if sx worsen, new concerns arise Visit Orders: Orders Placed This Encounter Procedures ??? IgG Standing Status: Future Number of Occurrences: 1 Standing Expiration Date: 03/17/2020 ??? IgA Standing Status: Future Number of Occurrences: 1 Standing Expiration Date: 03/17/2020 ??? CBC with auto differential Standing Status: Future Number of Occurrences: 1 Standing Expiration Date: 03/17/2020 ??? Comprehensive metabolic panel Standing Status: Future Number of Occurrences: 1 Standing Expiration Date: 03/17/2020 ??? TSH+Free T4 Standing Status: Future Number of Occurrences: 1 Standing Expiration Date: 03/17/2020 ??? IMMUNOGLOBULIN M Standing Status: Future Number of Occurrences: 1 Standing Expiration Date: 03/17/2020 1. The patient indicates understanding of these issues and agrees with the plan. 2. The patient is given an After Visit Summary sheet that lists all of their medications with directions, their allergies, orders placed during this encounter, immunization dates, and follow- up instructions. 3. I reviewed the patient's medical information and medical history 4. I reconciled the patient's medication list and prepared and supplied needed refills. 5. I have reviewed the past medical, family, and social history sections including the medications and allergies listed in the above medical record IPLE KNIFE EDGE TRIMMER OPERATOR documented in this encounter Plan of Treatment Not on file documented as of this encounter Procedures Procedure Name Priority Date/Time Associated Diagnosis Comments IMMUNOGLOBULIN M Routine 04/15/2019 2:20 PM MULTIPLE KNIFE EDGE TRIMMER OPERATOR Recurrent infections TSH+FREE T4 Routine 04/15/2019 2:20 PM MULTIPLE KNIFE EDGE TRIMMER OPERATOR Diarrhea, unspecified type CBC WITH AUTO DIFFERENTIAL Routine 04/15/2019 2:20 PM MULTIPLE KNIFE EDGE TRIMMER OPERATOR Diarrhea, unspecified type IGA Routine 04/15/2019 2:20 PM MULTIPLE KNIFE EDGE TRIMMER OPERATOR Stomatitis Recurrent infections IGG Routine 04/15/2019 2:20 PM MULTIPLE KNIFE EDGE TRIMMER OPERATOR Stomatitis Recurrent infections COMPREHENSIVE METABOLIC PANEL Routine 04/15/2019 2:20 PM MULTIPLE KNIFE EDGE TRIMMER OPERATOR Diarrhea, unspecified type documented in this encounter Results * IMMUNOGLOBULIN M (04/15/2019 2:20 PM MULTIPLE KNIFE EDGE TRIMMER OPERATOR) Immunoglobulin M, Qn, Serum 75 26 - 217 mg/dL [facility] - 01 Blood specimen (specimen) 04/15/2019 2:20 PM MULTIPLE KNIFE EDGE TRIMMER OPERATOR 04/15/2019 Narrative [facility] - 04/16/2019 7:07 AM MULTIPLE KNIFE EDGE TRIMMER OPERATOR Performed at: ?? - [facility] [address] ??[id number] Front End Java Developer: Zhao Pugh PhD, Phone: ??[phone] Vira RUSHING LAB BLOOD ORDERABLES Fin al Result Performing Organization Address [facility] Co de Phone Number [facility] - * TSH+Free T4 (04/15/2019 2:20 PM MULTIPLE KNIFE EDGE TRIMMER OPERATOR) TSH 1.700 0.450 - 4.500 uIU/mL [facility] - 01 T4,Free(Direct) 0.82 0.82 - 1.77 ng/dL [facility] - 01 Blood specimen (specimen) 04/15/2019 2:20 PM MULTIPLE KNIFE EDGE TRIMMER OPERATOR 04/15/2019 Narrative [facility] - 04/16/2019 7:07 AM MULTIPLE KNIFE EDGE TRIMMER OPERATOR Performed at: ??01 - [facility] [address] ??[id number] Front End Java Developer: Zhao Pugh PhD, Phone: ??[phone] Vira RUSHING LAB BLOOD ORDERABLES Fin al Result Performing Organization Address [facility] de Phone Number [facility] - * (ABNORMAL) Comprehensive metabolic panel (04/15/2019 2:20 PM MULTIPLE KNIFE EDGE TRIMMER OPERATOR) Glucose 141(H) 65 - 99 mg/dL [facility] - 01 BUN 9 6 - 24 mg/dL [facility] - 01 Creatinine, Serum 0.56(L) 0.57 - 1.00 mg/dL [facility] - 01 eGFR If NonAfricn Am 115 >59 mL/min/1.7 3 [facility] - 01 eGFR If Africn Am 132 >59 mL/min/1.7 3 [facility] - 01 BUN/creat ratio 16 9 - 23 [facility] - 01 Sodium 138 134 - 144 mmol/L [facility] - 01 Potassium, sr 3.9 3.5 - 5.2 mmol/L [facility] - 01 Chloride 102 96 - 106 mmol/L [facility] - 01 CO2 21 20 - 29 mmol/L [facility] - 01 Calcium 9.3 8.7 - 10.2 mg/dL [facility] - 01 Protein, sr 6.6 6.0 - 8.5 g/dL [facility] - 01 Albumin 4.6 3.5 - 5.5 g/dL [facility] - 01 Globulin, Total 2.0 1.5 - 4.5 g/dL [facility] - 01 A/G Ratio 2.3(H) 1.2 - 2.2 [facility] - 01 Bilirubin, Total <0.2 0.0 - 1.2 mg/dL [facility] - 01 Alk phos 75 39 - 117 IU/L [facility] - 01 AST 14 0 - 40 IU/L [facility] - 01 ALT 5 0 - 32 IU/L [facility] - 01 Blood specimen (specimen) 04/15/2019 2:20 PM MULTIPLE KNIFE EDGE TRIMMER OPERATOR 04/15/2019 Narrative [facility] - 04/16/2019 7:07 AM MULTIPLE KNIFE EDGE TRIMMER OPERATOR Performed at: ??01 - [facility] [address] ??[id number] Front End Java Developer: Zhao Pugh PhD, Phone: ??[phone] Vira RUSHING LAB BLOOD ORDERABLES Fin al Result [facility] - 01 * (ABNORMAL) CBC with auto differential (04/15/2019 2:20 PM MULTIPLE KNIFE EDGE TRIMMER OPERATOR) Pathologist [facility] WBC 8.6 3.4 - 10.8 x10E3/uL [facility] - 01 RBC 3.96 3.77 - 5.28 x10E6/uL [facility] - 01 Hgb 13.3 11.1 - 15.9 g/dL [facility] - 01 Hct 40.7 34.0 - 46.6 % [facility] - 01 MCV 103(H) 79 - 97 fL [facility] - 01 MCH 33.6(H) 26.6 - 33.0 pg [facility] - 01 MCHC 32.7 31.5 - 35.7 g/dL [facility] - 01 Rdw 14.8 12.3 - 15.4 % [facility] - 01 Comment: Effective April 21, 2019, the RDW pediatric reference ??interval will be removed and the adult reference interval ??will be changing to: ? Female 11.7 - 15.4 ? Male 11.6 - 15.4 Platelets 322 150 - 450 x10E3/uL [facility] - 01 Neutrophils pct 66 Not Estab. % [facility] - 01 Lymphs pct 24 Not Estab. % [facility] - 01 Monocytes pct 9 Not Estab. % [facility] - 01 Eosinophils pct 1 Not Estab. % [facility] - 01 Basophil pct 0 Not Estab. % [facility] - 01 Neutrophil abs 5.6 1.4 - 7.0 x10E3/uL [facility] - 01 Lymphs (Absolute) 2.0 0.7 - 3.1 x10E3/uL [facility] - 01 Monocyte abs 0.8 0.1 - 0.9 x10E3/uL [facility] - 01 Eosinophils, abs 0.1 0.0 - 0.4 x10E3/uL [facility] - 01 Basophils, abs 0.0 0.0 - 0.2 x10E3/uL [facility] - 01 Immature Granulocytes 0 Not Estab. % [facility] - 01 Immature Grans (Abs) 0.0 0.0 - 0.1 x10E3/uL [facility] - 01 Blood specimen (specimen) 04/15/2019 2:20 PM MULTIPLE KNIFE EDGE TRIMMER OPERATOR 04/15/2019 Narrative [facility] - 04/16/2019 7:07 AM MULTIPLE KNIFE EDGE TRIMMER OPERATOR Performed at: ??01 - [facility] [address] ??[id number] Front End Java Developer: Zhao Pugh PhD, Phone: ??[phone] Vira RUSHING LAB BLOOD ORDERABLES Fin al Result [facility] - 01 * IgA (04/15/2019 2:20 PM MULTIPLE KNIFE EDGE TRIMMER OPERATOR) Immunoglobulin A, Qn, Serum 102 87 - 352 mg/dL [facility] - 01 Blood specimen (specimen) 04/15/2019 2:20 PM MULTIPLE KNIFE EDGE TRIMMER OPERATOR 04/15/2019 Narrative [facility] - 04/16/2019 7:07 AM MULTIPLE KNIFE EDGE TRIMMER OPERATOR Performed at: ??01 - [facility] ??[id number] Front End Java Developer: Zhao Pugh PhD, Phone: ??[phone] Vira RUSHING LAB BLOOD ORDERABLES Fin al Result Performing Organization Address [facility] de Phone Number [facility] - 01 * IgG (04/15/2019 2:20 PM MULTIPLE KNIFE EDGE TRIMMER OPERATOR) Pathologist [facility] Immunoglobulin G, Qn, Serum 747 700 - 1,600 mg/dL [facility] - Blood specimen (specimen) 04/15/2019 2:20 PM MULTIPLE KNIFE EDGE TRIMMER OPERATOR 04/15/2019 Narrative [facility] - 04/16/2019 7:07 AM MULTIPLE KNIFE EDGE TRIMMER OPERATOR Performed at: ??01 - [facility] ??[id number] Front End Java Developer: Zhao Pugh PhD, Phone: ??[phone] Vira RUSHING LAB BLOOD ORDERABLES Fin al Result Performing Organization Address [facility] Phone Number [facility] - 01 documented in this encounter Visit Diagnoses Diagnosis Stomatitis- Primary Stomatitis and mucositis, unspecified Recurrent infections Unspecified infectious and parasitic diseases Diarrhea, unspecified type documented in this encounter Discontinued Medications Medication Sig Discontinue Reason Start Date End Da te fluconazole (DIFLUCAN) 100 mg tabletIndications:Oral candidiasis Take 1 tablet (100 mg total) by mouth daily Therapy completed 01/17/2019 03/17/2019 nystatin 100,000 unit/mL suspensionIndications:Ora l candidiasis Take 5 mL (500,000 Units total) by mouth 4 (four) times a day Swish in mouth and swallow. Therapy completed 01/27/2019 03/17/2019 budesonide-formoterol (SYMBICORT) 160-4.5 mcg/actuation inhaler 2 times daily. Therapy completed 08/08/2017 03/17/20 ALPRAZolam (XANAX) 1 mg tablet TAKE 1 TABLET DAILY NEEDED. Therapy completed 08/08/2017 03/17/2019 documented as of this encounter Care Teams Change Lead Relationship Specialty Start Date End Date Travis Durand MD PCP - General 07/02/18 08/08/19 documented as of this encounter
--- OUTSIDE RECORDS SUMMARY | 2024-04-05 02:19 | XMS_ITS | Encounter Summary ---
Author Organization [facility] Care Team Providers Care Information Systems Security Manager Name Role Phone Travis Durand MD Primary Care Provider [phone] Encounter Details Date Type Department Care Team (Latest Contact Info) Description 03/17/2019 Travel Social History Tobacco Use Types Packs/Day Years [...] on filedocumented in this encounter Care Teams Information Systems Security Manager Relationship Specialty Start Date End Date Travis Durand MD PCP - General 07/02/18 08/08/19 documented as of this encounter
--- OUTSIDE RECORDS SUMMARY | 2024-04-05 02:19 | XMS_ITS | Encounter Summary ---
Author Organization [facility] Address [address] [address] Care Team Providers Care Tribal Delegate Name Role Phone Travis Durand MD Primary Care Provider [phone] Reason for Visit * Reason Comments no taste Encounter Details Date Type Department Care Team (Late st Contact Info) Description 08/06/2019 11:30 AM CDT Telemedicine [facility] Family Medicine [address] [place] [address] Vira Josue PA [address] [facility] [address] [address] Loss of taste (Primary Dx); Exposure to Covid-19 Virus Social History Tobacco Use Types Packs/Day Years [...] * Patient Instructions* Vira Josue PA - 08/06/2019 11:30 AM CDT Dear Gerardo Whitt, The symptoms you reported are similar to those experienced by patients with COVID-19. Additionally,because of your health conditions, you are at higher risk of having complications from COVID-19. Therefore, we are recommending testing at this time. The CDC and local health departments recommend that you isolate yourself to prevent any potential spread of the virus until you have the results of your test. If you develop worsening symptoms of respiratory distress, call 911 or go to the nearest emergency room. What does self-isolation mean? - Remain at home or in a comparable setting - No public activities - You should not perform any public travel Do MY close contacts need to be isolated? - YES they should self-isolate until you have the results of your test. When will my results be available? - There is not a rapid test available at this time. It may take several days to get the results of this test. If you have MyChart, the results will be available to you at the same time as we receive them. Regardless, we will call every patient with positive or negative results. The [facility] Department will be reaching out to all patients who have a positive test for further discussion and monitoring. The CDC and BJ/RICK have much more information available online. The websites are: - cdc.gov - bjc.org Additional resources around self-isolation and how to prevent spread are at: cdc.gov/coronavirus/2019-ncov/about/index.html If symptoms are severe, rest at home for the first 2 to 3 days. When you resume activity, don't letyourself get too tired. Don't smoke. If you need help stopping, talk with your healthcare provider. Avoid being exposed to cigarette smoke (yours or others???). You may use acetaminophen to control pain and fever, unless another medicine was prescribed. If youhave chronic liver disease, have ever had a stomach ulcer or gastrointestinal bleeding talk with your healthcare provider before using these medicines. Aspirin should never be given to anyone under 18 years of age who is ill with a viral infection or fever. It may cause severe liver or brain damage. Your appetite may be poor, so a light diet is fine. Stay well hydrated by drinking 6 to 8 glasses of fluids per day (water, soft drinks, juices, tea, or soup). Extra fluids will help loosen secretions in the nose and lungs. Enqf-qjq-rxailgf cold medicines will not shorten the length of time you???re sick, but they may be helpful for the following symptoms: cough, sore throat, and nasal and sinus congestion. If you take prescription medicines, ask your healthcare provider or pharmacist which caoh-ouk-rbtpfob medicines are safe to use. (Note: Don't use decongestants if you have high blood pressure.) We at [facility] are pleased to offer this new service to our patients and strive to continually improve our care. Please take this short 2-3 minute survey related to your E-Visit and provide us with valuable feedback. Click this link: [email or web address] to complete the survey. documented in this encounter Progress Notes * Vira Josue PA - 08/06/2019 11:30 AM CDT Images from the original note were not included. This was a telemedicine visit with Gerardo Whitt alone which took place via Real-time audio/video communication. During the visit, I was located in office and the patient was located at home. The session started at 1143 and ended at 1150. The patient has been informed that the visit may not be secure and acknowledged the information. I have explained the option of participating in a telephone or video visit during the [facility] public health emergency to the patient. After being given an opportunity to ask questions about and discuss this type of visit, the patient verbally consented to proceeding with the telephone / video visit. The patient understands that this service replaces an office visit and they may be billed and/or responsible for any applicable copayments. CHIEF COMPLAINT: Chief Complaint Patient presents with ??? no taste SUBJECTIVE: She is a 44 y.o. female who presents today via telemedicine using audio and video communication with c/o lack of taste. States she first developed lack of taste over the past 24 hrs and developed diarrhea/loose stools about 4 dys ago. She denies cough, fever, chills, SOB. She does note sinus congestion and drainage, nasal congestion. States that she does have history of allergies so this is not unusual for her. She has not been taking anything kvcq-mfo-cwiyvyu for sx. She does note that she hashad exposure to somebody who has tested positive for COVID -19. States her neighbors just told her that they tested positive over the weekend. States that her kids and neighbor's kids have been playing together frequently over the past couple weeks and she notes that she herself has had contact with her neighbors who have tested positive as well. She says that nobody else in her household has sx at this time. She denies any other known exposures. She does have multiple chronic medical conditions that place her at higher risk for developing complications from COVID -19. She has no other new complaints at this time. ROS: Review of Systems Constitutional: Negative for appetite change and fever. HENT: Positive for congestion, postnasal drip and rhinorrhea. Negative for ear pain and trouble swallowing. No taste Eyes: Negative for pain and visual disturbance. [...] suicidal ideas. The patient is not nervous/anxious. Physical Exam Constitutional: She is oriented to person, place, and time and well-developed, well-nourished, and in no distress. HENT: Head: Normocephalic and atraumatic. Eyes: EOM are normal. Pulmonary/Chest: Effort normal. No respiratory distress. Neurological: She is alert and oriented to person, place, and time. Psychiatric: Affect normal. Assessment/Plan Diagnoses and all orders for this visit: Loss of taste (R43.2) (Primary) - COVID-19 Coronavirus RNA ARMOURED CAR ESCORT; Future Given patient's medical history, exposure, and sx, will get patient tested for COVID. Advised her to self quarantine until further notice. Will call with results. Patient verbalized understanding & was agreeable plan. Advised rest, fluids. Call sx worsen anyway, new concerns arise. Discussed ER precautions. Patient agreeable plan Exposure to Covid-19 Virus (Z20.828) - COVID-19 Coronavirus RNA ARMOURED CAR ESCORT; Future See above documented in this encounter Plan of Treatment Not on file documented as of this encounter Procedures Procedure Name Priority Date/Time Associated Diagnosis Comments COVID-19 CORONAVIRUS RNA Routine 08/08/2019 1:09 PM CDT Loss of taste Exposure to Covid-19 Virus documented in this encounter Results * COVID-19 Coronavirus RNA ARMOURED CAR ESCORT (08/08/2019 1:09 PM CDT) COVID-[address] [facility] Comment: A negative result does not rule out the possibility of COVID-19 and should not be used as the sole basis for patient management decisions. Coronavirus (COVID-19) Interp SEE COMMENT [facility] Comment: Please see scanned report for additional information. Coronavirus (COVID-19) Results called to [facility] Misc Performing Lab [facility] ARMOURED CAR ESCORT 08/08/2019 1:09 PM CDT 08/08/2019 3:24 PM CDT Narrative Resulting Agency Comment CLI Vira RUSHING LAB MICROBIOLOGY - GENER AL ORDERABLES Final Result [facility] [address] [place] [address], [facility] [phone] documented in this encounter Visit Diagnoses Diagnosis Loss of taste- Primary Disturbances of sensation of smell and taste Exposure to COVID-19 virus documented in this encounter Historical Medications * This list may reflect changes made after this encounter. Chantix Starting Month Box 0.5 mg (11)- 1 mg (42) tablet FPD 07/07/2019 05/21/2020 metoprolol XL (TOPROL-XL) 25 mg extended release tablet TK 1 T PO QD 07/23/2019 01/03/2022 added in this encounter Care Teams Tribal Delegate Relationship Specialty Start Date End Date Travis Durand MD PCP - General 07/02/18 08/08/19 documented as of this encounter
--- OUTSIDE RECORDS SUMMARY | 2024-04-05 02:19 | XMS_ITS | Encounter Summary ---
Author Organization [facility] Address [address] [facility] [address] [place] [address] Care Team Providers Care Assistant Art Director Name Role Phone Travis Durand MD Primary Care Provider [phone] Encounter Details Date Type Department Care Team (Late st Contact Info) Description 03/07/2019 Orders Only [facility] [address] [place] [address] Vira Josue PA [address] [facility] [place] [address] Social History Tobacco Use Types Packs/Day Years [...] Date/Time Associated Diagnosis Comments SCAN - LABS 03/07/2019 documented in this encounter Results * SCAN - LABS (03/07/2019) us Vira RUSHING Final Re sult documented in this encounter Visit Diagnoses Not on filedocumented in this encounter Care Teams Assistant Art Director Relationship Specialty Start Date End Date Travis Durand MD PCP - General 07/02/18 08/08/19 documented as of this encounter
--- OUTSIDE RECORDS SUMMARY | 2024-04-05 02:19 | XMS_ITS | Encounter Summary ---
Author Organization [facility] Care Team Providers Care Signal Circuit Designer Name Role Phone Travis Durand MD Primary Care Provider [phone] Encounter Details Date Type Department Care Team (Latest Contact Info) Description 01/17/2019 Travel Social History Tobacco Use Types Packs/Day [...] on filedocumented in this encounter Care Teams Signal Circuit Designer Relationship Specialty Start Date End Date Travis Durand MD PCP - General 07/02/18 08/08/19 documented as of this encounter
--- OUTSIDE RECORDS SUMMARY | 2024-04-05 02:19 | XMS_ITS | Encounter Summary ---
Author Organization [facility] Address [address] [address] Care Team Providers Care City Solicitor Name Role Phone Travis Durand MD Primary Care Provider [phone] Reason for Visit * Reason Comments Thrush Med Refill Encounter Details Date Type Department Care Team (Late st Contact Info) Description 01/17/2019 9:00 AM CDT Office Visit [facility] Family Medicine [address] [place] [address] Vira Josue PA [address] [facility] [address] [address] Oral candidiasis (Primary Dx); Migraine without aura and without status migrainosus, not intractable; Situational anxiety Social History Tobacco Use Types Packs/Day Years [...] Sign Reading Time Taken Comments Blood Pressure 104/76 01/17/2019 9:34 AM CDT Pulse 120 01/17/2019 9:34 AM CDT Temperature 36.3 ??C (97.3 ??F) 01/17/2019 9:34 AM CD T Respiratory Rate 16 01/17/2019 9:34 AM CDT Oxygen Saturation - - Inhaled Oxygen Concentration - - Weight 56.7 kg (125 lb) 01/17/2019 9:34 AM CDT Height 154.9 cm (5' 1 ) 01/17/2019 9:34 AM CDT Body Mass Index 23.62 01/17/2019 9:34 AM CDT documented in this encounter Patient Instructions * Patient Instructions* Vira Josue PA - 01/17/2019 9:00 AM CDT Patient Education Oral Candidiasis IT COMMUNICATIONS SPECIALIST: Oral candidiasis , or thrush, is a fungal infection that affects the inside of your mouth. Seek care immediately if: ?? You have trouble swallowing and your jaw and neck are stiff. ?? You are dizzy, thirsty, or have a dry mouth. ?? You are urinating little or not at all. ?? You cannot eat or drink because of the pain. Contact your healthcare provider if: ?? You have a fever. ?? You have nausea, vomiting, or diarrhea. ?? Your signs and symptoms get worse, even after treatment. ?? You have questions or concerns about your condition or care. Common symptoms include the following: ?? White or whitish-yellow patches in the mouth that look like milk curds ?? Redness or bleeding under the patches ?? Sore and painful mouth, with cracking or tearing on the corners ?? Bright red tongue that may feel like it is burning ?? Trouble swallowing and tasting ?? Swelling under dentures Treatment for oral candidiasis includes antifungal medicine that helps kill the fungus that caused your oral candidiasis. This medicine may be a pill or a solution that you gargle. Remove dentures before you gargle. Prevent oral candidiasis: [place] your teeth, gums, and tongue after you eat and before you go to sleep. Use a toothbrush with soft bristles. See your dentist for regular exams. Remove your dentures when you sleep, or at least 6 hours each day. Clean your dentures and soak them in denture saw cleaner. Let them air dry after soaking. Follow up with your healthcare provider as directed: Write down your questions so you remember to ask them during your visits. ?? 2017 [employer] Information is for End User's use only and may not be sold, redistributed or otherwise used for commercial purposes. All illustrations and images included in CareNotes?? are the copyrighted property of [employer]. or [employer]. The above information is an prosthetic aide only. It is not intended as medical advice for individual conditions or treatments. Talk to your doctor, nurse or pharmacist before following any medical regimen to see if it is safe and effective for you. documented in this encounter Ordered Prescriptions Prescription Sig Dispense Quantity Refills Last Filled Start Date End Date busPIRone (BUSPAR) 15 mg tabletIndications: Generalized Anxiety Disorder Take 1 tablet (15 mg total) by mouth 2 (two) times a day as needed (anxiety) 60 tablet 1 01/17/2019 08/12/2019 fluconazole (DIFLUCAN) 100 mg tabletIndications: Oral candidiasis Take 1 tablet (100 mg total) by mouth daily 10 tablet 01/17/2019 03/17/2019 topiramate (TOPAMAX) 50 mg tabletIndications: Migraine without aura and without status migrainosus, not intractable Take 1 tablet (50 mg total) by mouth 2 (two) times a day 60 tablet 5 01/17/2019 07/14/2019 nystatin 100,000 unit/mL suspensionIndicati ons:Oral candidiasis Take 5 mL (500,000 Units total) by mouth 4 (four) times a day Swish in mouth and swallow. 280 mL 01/17/2019 01/27/2019 documented in this encounter Progress Notes * Vira Josue PA - 01/17/2019 9:00 AM CDT Images from the original note were not included. CHIEF COMPLAINT: Chief Complaint Patient presents with ??? Thrush ??? Med Refill SUBJECTIVE: She is a 44 y.o. female who presents today with c/o thrush s/s. States sx began several weeks ago. She says her tongue feels dry, sore throat, white plaque to tongue. She says she's recently been treated with nystatin s/s twice and states she still has not improved. States urgent care originally prescribed on 12/30 and then she had second treatment with no relief. She is no long using her symbicort inh. States it's been mos since she's used the inh and hasn't taken any other inhalers recently either. Denies any new meds otherwise. She does request refill on Topamax for her migraines. States this works well to prevent her migraine headaches. She also like to restart BuSpar for her anxiety. States she has been on this in the past and states that works very well for her. She has no other newcomplaints today. She denies any chest pain, SOB, dyspnea on exertion, cough. She conts f/u with Dr. Fritz, pharmaceutical detailer and is due for an appointment at this time ROS: Review of Systems Constitutional: Negative for appetite change and fever. Thrush HENT: Negative for ear pain, rhinorrhea and trouble swallowing. Eyes: Negative for pain and visual disturbance. Respiratory: Negative for cough, chest tightness and shortness of breath. Cardiovascular: Negative for chest pain and leg swelling. Gastrointestinal: Negative for abdominal pain, blood in stool, diarrhea, nausea and vomiting. Endocrine: Negative for cold [...] hallucinations and suicidal ideas. The patient is nervous/anxious. PHYSICAL EXAM: Vitals: 01/17/19 0934 BP: 104/76 Pulse: 120 Resp: 16 Temp: 36.3 ??C (97.3 ??F) Weight: 56.7 kg (125 lb) Height: 154.9 [...] membranes are clear bilaterally. Oral mucosa is pink. White adherent plaque to tongue, erythema to posterior oropharynx. no tonsillar exudates and no oral pharyngeal [...] positive bowel sounds in all 4 quadrants. EXTREMITIES: No lower extremity edema noted bilaterally. No calf tenderness noted bilaterally. No clubbing or cyanosis noted. 2+ pulses in LE b/l. NEUROLOGIC: Gait was unremarkable. No focal neurologic deficits observed. PSYCH: Appropriate affect. Denies suicidal or homicidal ideation. Assessment/Plan Diagnoses and all orders for this visit: Oral candidiasis (B37.0) (Primary) - nystatin 100,000 unit/mL suspension; Take 5 mL (500,000 Units total) by mouth 4 (four) times a day Swish in mouth and swallow. - fluconazole (DIFLUCAN) 100 mg tablet; Take 1 tablet (100 mg total) by mouth daily Will restart nystatin swish and swallow and Diflucan oral tablets. Advised RTC/call sx worsen, not improving. Patient agreeable plan Migraine without aura and without status migrainosus, not intractable (G43.009) - topiramate (TOPAMAX) 50 mg tablet; Take 1 tablet (50 mg total) by mouth 2 (two) times a day Will refill Topamax. Patient doing well on medications states that her migraines are controlled andinfrequent on medication Situational anxiety (F41.8) - busPIRone (BUSPAR) 15 mg tablet; Take 1 tablet (15 mg total) by mouth 2 (two) times a day as needed (anxiety) Will restart BuSpar. Patient has tolerated this medication well in the past advised to take as needed. Visit Orders: No orders of the defined types were placed in this encounter. 1. The patient indicates understanding of these [...] allergies listed in the above medical record documented in this encounter Plan of Treatment Not on file documented as of this encounter Visit Diagnoses Diagnosis Oral candidiasis- Primary Candidiasis of mouth Migraine without aura and without status migrainosus, not intractable Situational anxiety documented in this encounter Discontinued Medications Medication Sig Discontinue Reason Start Date End Da te nystatin 100,000 unit/mL suspension Take 5 mL (500,000 Units total) by mouth 4 (four) times a day Swish in mouth and swallow. Reorder 12/25/2018 01/17/2019 topiramate (TOPAMAX) 50 mg tablet 2 times daily. Reorder 08/08/2017 01/17/2019 documented as of this encounter Historical Medications * This list may reflect changes made after this encounter. potassium chloride (KLOR-CON 10 ORAL) Take 1 tablet by mouth daily as needed 05/21/2020 furosemide (LASIX) 20 mg tablet Take 1 tablet (20 mg total) by mouth daily 3 11/10/2018 09/26/2022 lisinopril (PRINIVIL,ZESTRIL ) 5 mg tablet Take 1 tablet by mouth daily 3 12/14/2018 02/13/2020 added in this encounter Care Teams City Solicitor Relationship Specialty Start Date End Date Travis Durand MD PCP - General 07/02/18 08/08/19 documented as of this encounter
--- OUTSIDE RECORDS SUMMARY | 2024-04-05 02:20 | XMS_ITS | Encounter Summary ---
Author Organization [facility] Address [address] [place] [address] Care Team Providers Care Parimutuel Ticket Cashier Name Role Phone Unavailable Primary Care Provider Unavailabl e Encounter Details Date Type Department Care Team (Latest Contact Info) Description 11/10/2016 1:33 PM CDT Hospital Encounter [facility] Travis Durand MD [address] [place] [address] Peritoneal abscess (CMS/HCC) Social History Tobacco Use Types Packs/Day Years [...] Procedure Name Priority Date/Time Associated Diagnosis Comments MICROBIOLOGY SPECIMEN REPORT (CONVERTED) Routine 11/10/2016 1:30 PM CDT documented in this encounter Results * Microbiology Specimen Report (Converted) (11/10/2016 1:30 PM CDT) 11/10/2016 1:30 PM CDT 11/10/2016 2:50 PM CDT [facility] HISTORICAL RESULTS - 11/10/2016 1:30 PM CDT Microbiology Specimen Report (Converted) SPECIMEN [id number] ?? COLLECTED: 2016-11-10 13:30:00 TUT ?? REQ#: [id number] REQUESTING DR: Travis Durand MD ?? SOURCE: NECK ?? SP DESC: SWAB --- PROCEDURE --- ?--- RESULT --- ?? GRAM STAIN ??(Final) ??- ??Performed at [facility] ?* MODERATE RBC ?* RARE GRAM POSITIVE COCCI ?* RARE WBC CULTURE WOUND ??(Final) ??- ??Performed at [facility] ?? * Organism 1 - (MRSA)METHICILLIN-RES S.AUREUS [MRSA] ?* LIGHT GROWTH ?* SEE SUSCEPTIBILITY REPORT BELOW ? [MRSA] ? M.I.C. ?RX CLINDAMYCIN ?0.25 ?S DAPTOMYCIN ? 0.5 ? S ERYTHROMYCIN ? >=8 ? R ??- ??(NonPrintable) GENTAMICIN ? <=0.5 ? S ??- ??(NonPrintable) LINEZOLID ?2 ? S LEVOFLOXACIN ? 0.25 ?S ??- ??(NonPrintable) DOXYCYCLINE ?<=0.5 ? S OXACILLIN ?>=4 ? R RIFAMPIN ? <=0.5 ? S ??- ??(NonPrintable) TETRACYCLINE ? <=1 ? S TRIMETHOPRIM/SULFAMETHOXAZOLE ??<=10 ?S VANCOMYCIN ? <=0.5 ? S ??S=Susceptible ?? I=Intermediate ?? S=Resistant ??SDD=Susceptible Dose Dependent ?? N/R=No Report ?AMANDA =Beta Lactamase - [facility] ? [address] ? [place] [address] ? Rogerio White MD Procedure Note 07/06/2018 Microbiology Specimen Report (Converted) SPECIMEN [id number] COLLECTED: 2016-11-10 13:30:00 TUT REQ#:[id number] REQUESTING DR: Travis Durand MD SOURCE: NECK SP DESC: SWAB --- PROCEDURE --- --- RESULT --- GRAM STAIN (Final) - Performed at [facility] * MODERATE RBC * RARE GRAM POSITIVE COCCI * RARE WBC CULTURE WOUND (Final) - Performed at [facility] * Organism 1 - (MRSA)METHICILLIN-RES S.AUREUS [MRSA] * LIGHT GROWTH * SEE SUSCEPTIBILITY REPORT BELOW [MRSA] M.I.C. RX CLINDAMYCIN 0.25 S DAPTOMYCIN 0.5 S ERYTHROMYCIN >=8 R - (NonPrintable) GENTAMICIN <=0.5 S - (NonPrintable) LINEZOLID 2 S LEVOFLOXACIN 0.25 S - (NonPrintable) DOXYCYCLINE <=0.5 S OXACILLIN >=4 R RIFAMPIN <=0.5 S - (NonPrintable) TETRACYCLINE <=1 S TRIMETHOPRIM/SULFAMETHOXAZOLE <=10 S VANCOMYCIN <=0.5 S S=Susceptible I=Intermediate S=Resistant SDD=Susceptible Dose Dependent N/R=No Report AMANDA =Beta Lactamase - [address] [address] Rogerio White MD us Travis Durand MD LAB BLOOD ORDERABLES Final Resu lt [facility] HISTORICAL RESULTS documented in this encounter Visit Diagnoses Diagnosis Peritoneal abscess (CMS/HCC) (HCC) Peritoneal abscess documented in this encounter
--- OUTSIDE RECORDS SUMMARY | 2024-04-05 02:20 | XMS_ITS | Encounter Summary ---
Author Organization [facility] Facility Care Team Providers Care Transonic Engineer Name Role Phone Travis Durand MD Primary Care Provider [phone] Ashley Lamar MD Primary Care Provider [phone] Ashley Lamar MD Primary Care Provider [phone] Travis Durand MD Primary Care Provider [phone] Ashley Lamar MD Primary Care Provider [phone] Travis Durand MD Primary Care Provider [phone] Ashley Lamar MD Primary Care Provider [phone] Travis Durand MD Primary Care Provider [phone] Ashley Lamar MD Primary Care Provider [phone] Travis Durand MD Primary Care Provider [phone] Chris Bean MD Primary Care Provider [phone] Encounter Details Date Type Department Care Team (Latest Contact Info) Description 08/07/2017 Orders Only [facility] CLINCONV ProviderLaquita MD [address] [place] [address] Social History Tobacco Use Types Packs/Day Years [...] Procedure Name Priority Date/Time Associated Diagnosis Comments CARDIOLOGY REPORT 08/07/2017 12: 00 AM CDT documented in this encounter Results * CARDIOLOGY REPORT (08/07/2017 12:00 AM CDT) Anatomical Region Laterality Modality Other Narrative 08/07/2017 12:00 AM CDT Ordered by an unspecified provider. us Historical Provider [facility] Final Result documented in this encounter Visit Diagnoses Not on filedocumented in this encounter Additional Health Concerns Infection Onset Date Last Indicated Resolved Time COVID: Suspected 08/06/2019 08/08/2019 08/10/2019 7:03 AM CDT Respiratory Infection (REAGAN), contact + droplet Comment:Automatically added due to negative COVID-19 result. 08/10/2019 08/10/2019 08/24/2019 3:0 5 AM CDT documented as of this encounter Care Teams Transonic Engineer Relationship Specialty Start Date End Date Travis Durand MD PCP - General 08/10/17 08/26/17 Ashley Lamar MD PCP - General 08/27/17 08/27/17 Ashley Lamar MD PCP - General 08/28/17 09/04/17 Travis Durand MD PCP - General 09/05/17 09/05/17 Ashley Lamar MD PCP - General 09/06/17 09/06/17 Travis Durand MD PCP - General 09/07/17 09/19/17 Ashley Lamar MD PCP - General 09/20/17 07/01/18 Travis Durand MD PCP - General 07/02/18 08/08/19 Ashley Lamar MD PCP - General 08/09/19 09/15/19 Travis Durand MD PCP - General Family Medicine 09/16/19 05/31/22 Chris Bean MD [address] [facility] [place] [address] PCP - General Family Medicine 09/08/22 documented as of this encounter
--- OUTSIDE RECORDS SUMMARY | 2024-04-05 02:20 | XMS_ITS | Encounter Summary ---
Author Organization [facility] Facility Care Team Providers Care Train Conductor Name Role Phone Travis Durand MD Primary Care Provider [phone] Ashley Lamar MD Primary Care Provider [phone] Ashley Lamar MD Primary Care Provider [phone] Travis Durand MD Primary Care Provider [phone] Ashley Lamar MD Primary Care Provider [phone] Travis Durand MD Primary Care Provider [phone] Ashley Lamar MD Primary Care Provider [phone] Travis Durand MD Primary Care Provider [phone] Ashley Lamar MD Primary Care Provider [phone] Travis Durand MD Primary Care Provider [phone] Chris Bean MD Primary Care Provider [phone] Encounter Details Date Type Department Care Team (Latest Contact Info) Description 12/27/2015 Orders Only [facility] CLINCONV ProviderLaquita MD [address] [place] [address] Social History Tobacco Use Types Packs/Day [...] Procedure Name Priority Date/Time Associated Diagnosis Comments PROCEDURE - RESULT 12/31/2015 12 :00 AM CDT documented in this encounter Results * PROCEDURE - RESULT (12/31/2015 12:00 AM CDT) Narrative 12/31/2015 12:00 AM CDT Ordered by an unspecified [...] documented as of this encounter Care Teams Train Conductor Relationship Specialty Start Date End Date Travis [...] Medicine 09/16/19 05/31/22 Chris Bean MD [address] [facility] [place] [address] PCP - General Family Medicine 09/08/22 documented as of this encounter
--- OUTSIDE RECORDS SUMMARY | 2024-04-05 02:20 | XMS_ITS | Encounter Summary ---
Author Organization [facility] Healthcare Address [address] [place] [address] Care Team Providers Care Geological Scout Name Role Phone Travis Durand MD Primary Care Provider [phone] Reason for Referral * Diagnostic Imaging (Routine) - Closed Specialty Diagnoses / Procedures Referred By Contac t Referred To Contact Radiology Diagnoses Chest tightness Procedures CT Heart Morphology And Coronary Arteries W Contrast Rogerio Bean MD Phone: tel: fax: [address] [address] Referral ID Status Reason Start Date Expiration Date Visits Re quested Visits Authorized [id number] Closed 09/13/2017 04/02/2019 1 1 Reason for Visit * Diagnostic Imaging (Routine) - Closed Specialty Diagnoses / Procedures Referred By Contac t Referred To Contact Radiology Diagnoses Chest tightness Procedures CT Heart Morphology And Coronary Arteries W Contrast Rogerio Bean MD Phone: tel: fax: [address] [address] Referral ID Status Reason Start Date Expiration Date Visits Re quested Visits Authorized [id number] Closed 09/13/2017 04/02/2019 1 1 Encounter Details Date Type Department Care Team (Latest Contact Info) Description 09/19/2017 9:55 AM CDT - 09/19/2017 11:59 PM CDT Hospital Encounter [facility] Radiology [address] [facility] [place] [address] Rogerio Bean MD [address] [place] [address] Chest tightness Discharge Disposition: Discharge to home or self [...] this encounter Medications at Time of Discharge ALPRAZolam (XANAX) 1 mg tablet TAKE 1 TABLET DAILY NEEDED. 08/08/2017 03/17/2019 budesonide-formot yunior (SYMBICORT) 160-4.5 mcg/actuation inhaler 2 times daily. 08/08/2017 03/17/2019 cyclobenzaprine ER (AMRIX) 15 mg 24 hr capsule Take 15 mg by mouth daily 08/10/2017 05/21/2020 topiramate (TOPAMAX) 50 mg tablet 2 times daily. 08/08/2017 01/17/2019 documented as of this encounter Discharge Disposition Disposition Code Departure Means Destination Discharge to home or self care documented in this encounter Plan of Treatment Not on file documented as of this encounter Procedures Procedure Name Priority Date/Time Associated Diagnosis Comments CT HEART MORPHOLOGY AND CORONARY ARTERIES W CONTRAST Schedule Routine, Read Routine (OP Routine) 09/19/2017 12:29 PM CDT Chest tightness POCT CREATININE FOR CONTRAST EVALUATION Routine Gen Lab 09/19/2017 10:47 AM CDT documented in this encounter Results * CT Heart Morphology And Coronary Arteries W Contrast (09/19/2017 12:29 PM CDT) Anatomical Region Laterality Modality Body N/A Computed Tomogra phy 09/19/2017 1:57 PM CDT Impressions 09/19/2017 3:17 PM CDT 1. 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 ??Left ventricular ejection fraction equals 49%. 2. ??Normal coronary arteries. Electronically signed by: Lex Peterson M.D. Narrative 09/19/2017 3:17 PM CDT EXAMINATION: CORONARY CT ANGIOGRAM HISTORY: Chest pain with left ventricular apical hypokinesis on echocardiogram and pharmacological stress test TECHNIQUE: CT angiography of the coronary arteries was performed after the administration of 100 mL of Optiray 350. Images were also obtained precontrast for the purposes of calcium scoring. ??20 mg of metoprolol was administered intravenously prior to the examination. However, the examination is limited by cardiac motion as the patient's heart rate remained above 70 bpm. ??The patient's heart rate and blood pressure at the time of the examination were 72 beats per minute and 140/90 mmHg. Images were transferred to a 3D workstation for additional post-processing. FINDINGS: Evaluation of the coronary arteries is limited by cardiac motion, but the arteries are normal in caliber without significant stenosis. Coronary artery anatomy is normal without aberrant origin or course. The calculated calcium score is 0. There is focal dilatation of the left ventricular apex with trabeculation seen within the dilated area, which is also hypokinetic. The left ventricle otherwise appears normal with normal contractility. The left ventricular ejection fraction is 49%. Other findings: The visualized lung parenchyma is normal. ??Imaged portion of the upper abdomen is unremarkable. Procedure Note Lex Peterson MD - 09/19/2017 EXAMINATION: CORONARY CT ANGIOGRAM HISTORY: Chest pain with left ventricular apical hypokinesis on echocardiogram and pharmacological stress test TECHNIQUE: CT angiography of the coronary arteries was performed after the administration of 100 mL of Optiray 350. Images were also obtained precontrast for the purposes of calcium scoring. 20 mg of metoprolol was administered intravenously prior to the examination. However, the examination is limited by cardiac motion as the patient's heart rate remained above 70 bpm. The patient's heart rate and blood pressure at the time of the examination were 72 beats per minute and 140/90 mmHg. Images were transferred to a 3D workstation for additional post-processing. FINDINGS: Evaluation of the coronary arteries is limited by cardiac motion, but the arteries are normal in caliber without significant stenosis. Coronary artery anatomy is normal without aberrant origin or course. The calculated calcium score is 0. There is focal dilatation of the left ventricular apex with trabeculation seen within the dilated area, which is also hypokinetic. The left ventricle otherwise appears normal with normal contractility. The left ventricular ejection fraction is 49%. Other findings: The visualized lung parenchyma is normal. Imaged portion of the upper abdomen is unremarkable. IMPRESSION: 1. 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 Left ventricular ejection fraction equals 49%. 2. Normal coronary arteries. Electronically signed by: Lex Peterson M.D. Rogerio Bean MD IMG CT PROCEDURES Final Res ult * (ABNORMAL) POCT creatinine for contrast evaluation (09/19/2017 10:47 AM CDT) Creatinine POC <0.5(L) 0.6 - 1.1 mg/dL [facility] Blood specimen (specimen) 09/19/2017 10:47 AM CDT 09/19/2017 10:47 AM CDT Narrative [facility] - 09/19/2017 12:10 PM CDT Rogerio Bean MD POINT OF CARE TEST ORDERABL ES Final Result [facility] One [facility] [place] [address] documented in this encounter Visit Diagnoses Diagnosis Chest tightness Other chest pain documented in this encounter Administered Medications Inactive Administered Medications - up to 3 most recent administrations Medication Order MAR Action Action Date Dose Rate Site ioversol (OPTIRAY 350) syringe syringe 100 mL 100 mL, intravenous, Once in imaging, contrast, Starting on Sun09/19/17 at 1236, For 1 dose Given 09/19/2017 12:36 PM CDT 100 mL documented in this encounter Orders Medications Ordered That Vu ht Not Have Been Administered Count Last Ordered Date First Ordered Date metoprolol (LOPRESSOR) 5 mg IVPB 2 09/20/19 18 documented in this encounter Care Teams Geological Scout Relationship Specialty Start Date End Date Travis Durand MD PCP - General 09/07/17 09/19/17 documented as of this encounter
--- OUTSIDE RECORDS SUMMARY | 2024-04-05 02:20 | XMS_ITS | Encounter Summary ---
Author Organization [facility] Healthcare Address [address] [place] [address] Care Team Providers Care Repair Service Dispatcher Name Role Phone Unavailable Primary Care Provider Unavailabl e Encounter Details Date Type Department Care Team (Latest Contact Info) Description 09/05/2012 12:36 PM CDT - 09/05/2012 1:55 PM CDT Hospital Encounter [facility] Mellisa Ventura, DIRECTOR INTERNATIONAL [address] [facility] [address] [address] Degeneration of lumbar or lumbosacral intervertebral disc; Neuralgia, neuritis or radiculitis; Other chronic pain; Low back pain; Tobacco use disorder Social History Tobacco Use Types Packs/Day Years Used Date Smoking Tobacco: Never Assessed Comments Unknown Sex and Gender Information Value Date Recorded Sex Assigned at Not on file Legal Sex Female 1:49 PM CDT Gender Identity Female 06/30/2020 9:08 AM CDT Sexual Orientation Not on file documented as of this encounter Last Filed Vital Signs Vital Sign Reading Time Taken Comments Blood Pressure 149/101 09/05/2012 1:26 PM CDT Pulse 101 09/05/2012 1:26 PM CDT Temperature 36.7 ??C (98.1 ??F) 09/05/2012 1:26 PM CD T Respiratory Rate - - Oxygen Saturation 97% 09/05/2012 1:26 PM CDT Inhaled Oxygen Concentration - - Weight 69.9 kg (154 lb) 09/05/2012 1:26 PM CDT Height 157.5 cm (5' 2 ) 09/05/2012 1:26 PM CDT Body Mass Index 28.17 09/05/2012 1:26 PM CDT documented in this encounter Plan of Treatment Not on file documented as of this encounter Visit Diagnoses Diagnosis Degeneration of lumbar or lumbosacral intervertebral disc Neuralgia, neuritis or radiculitis Other chronic pain Low back pain Lumbago Tobacco use disorder documented in this encounter
--- OUTSIDE RECORDS SUMMARY | 2024-04-05 02:20 | XMS_ITS | Encounter Summary ---
Author Organization [facility] Address [address] [place] [address] Phone Care Team Providers Care Tungsten Refiner Name Role Phone Ashley Lamar MD Primary Care Provider [phone] Encounter Details Date Type Department Care Team (Late st Contact Info) Description 02/01/2018 Orders Only [facility] Cardiology [facility] Medical Office Building [address] [place] [address] Tala Rudolph, Analia Social History Tobacco Use Types Packs/Day Years [...] Diagnoses Not on filedocumented in this encounter Historical Medications * This list may reflect changes made after this encounter. topiramate (TOPAMAX) 50 mg tablet 2 times daily. 08/08/2017 01/17/2019 budesonide-formot yunior (SYMBICORT) 160-4.5 mcg/actuation inhaler 2 times daily. 08/08/2017 03/17/2019 HYDROcodone-aceta minophen (NORCO) 5-325 mg per tabletIndications :Pain TK 1 T PO Q 6 H 0 01/21/2018 05/21/2020 cyclobenzaprine ER (AMRIX) 15 mg 24 hr capsule Take 15 mg by mouth daily 08/10/2017 05/21/2020 ALPRAZolam (XANAX) 1 mg tablet TAKE 1 TABLET DAILY NEEDED. 08/08/2017 03/17/2019 added in this encounter Care Teams Tungsten Refiner Relationship Specialty Start Date End Date Ashley Lamar MD PCP - General 09/20/17 07/01/18 documented as of this encounter
--- OUTSIDE RECORDS SUMMARY | 2024-04-05 02:20 | XMS_ITS | Encounter Summary ---
Author Organization [facility] Healthcare Address [address] [place] [address] Care Team Providers Care Railroad Repairer Name Role Phone Ashley Lamar MD Primary Care Provider [phone] Encounter Details Date Type Department Care Team (Latest Contact Info) Description 08/27/2017 3:44 PM CDT - 08/27/2017 11:59 PM CDT Hospital Encounter [facility] OP INTERIM [phone] Rogerio Bean MD [address] [facility] [address] [place] [address] Discharge Disposition: Discharge to home or self [...] Procedure Name Priority Date/Time Associated Diagnosis Comments TRANSTHORACIC ECHO (TTE) COM PLETE W DOPPLER/CF WO CONTRAST 08/27/2017 documented in this encounter Results * TRANSTHORACIC ECHO (TTE) COMPLETE W DOPPLER/CF WO CONTRAST (08/27/2017) Anatomical Region Laterality Modality Ultrasound us Provider Scanning CV ECHO PROCEDURES Final Resul t documented in this encounter Visit Diagnoses Not on filedocumented in this encounter Care Teams Railroad Repairer Relationship Specialty Start Date End Date sAhley Lamar MD PCP - General 08/27/17 08/27/17 documented as of this encounter
--- OUTSIDE RECORDS SUMMARY | 2024-04-05 02:20 | XMS_ITS | Encounter Summary ---
Author Organization [facility] Healthcare Address [address] [place] [address] Care Team Providers Care Ultrasound Applications Specialist Name Role Phone Travis Durand MD Primary Care Provider [phone] Ashley Lamar MD Primary Care Provider [phone] Encounter Details Date Type Department Care Team (Late st Contact Info) Description 09/17/2017 Orders Only Radiology [address] [place] [address] Ismael Tomlinson MD [facility] [address] [place] [address] Social History Tobacco Use Types Packs/Day Years [...] on filedocumented in this encounter Care Teams Ultrasound Applications Specialist Relationship Specialty Start Date End Date Travis Durand MD PCP - General 09/07/17 09/19/17 Ashley Lamar MD PCP - General 09/20/17 07/01/18 documented as of this encounter
--- OUTSIDE RECORDS SUMMARY | 2024-04-05 02:20 | XMS_ITS | Encounter Summary ---
Author Organization [facility] Healthcare Address [address] [place] [address] Care Team Providers Care Mail Distribution Scheme Examiner Name Role Phone Travis Durand MD Primary Care Provider [phone] Encounter Details Date Type Department Care Team (Latest Contact Info) Description 09/05/2017 1:56 PM CDT - 09/05/2017 11:59 PM CDT Hospital Encounter [facility] OP INTERIM [phone] Lobito Bean MD [address] [facility] [address] [place] [address] Discharge Disposition: Discharge to home or self [...] Procedure Name Priority Date/Time Associated Diagnosis Comments NM MYOCARDIAL INFARCT IMAGING SPECT/CT Routine 09/05/2017 7:36 PM CDT STRESS ECHOCARDIOGRAPHY 09/05/2017 documented in this encounter Results * NM Myocardial Infarct SPECT (09/05/2017 7:36 PM CDT) Anatomical Region Laterality Modality Body N/A Nuclear Medicine 09/05/2017 7:36 PM CDT Narrative 09/05/2017 9:51 PM CDT Trudi HAUSER M.D. FINAL REPORT The radiology attending physician has personally reviewed this study, and has reviewed and/or edited this written report and agrees with it. ACC# ??Date Time ??Exam [id number] September 05, 2017 14:36:00 [id number] MPI SPECT Multiple EXAMINATION: ??MYOCARDIAL IMAGING (REST AND PHARMACOLOGIC-STRESS/SPECT) DATE OF STUDY: 09/05/2017 RADIOPHARMACEUTICAL: Rest: 8.7 mCi Tc-99m tetrofosmin i.v. Pharmacologic Stress: 34.2 mCi Tc-99m tetrofosmin i.v. HISTORY: 42-year-old woman who smokes presents with syncope and chest pressure. ??Evaluate for ischemia. ??The electrocardiogram during infusion of the pharmacologic agent today was negative for ischemia. FINDINGS: Standard myocardial perfusion images were obtained after resting tracer injection. ??Subsequently, an intravenous infusion of Regadenoson was performed. ??A complete description of the stress test and electrocardiographic results supervised by staff of the Cardiovascular Division is available in the [facility] electronic medical record. Standard myocardial perfusion images were obtained after tracer injection at the peak effect of the drug. ??Images were obtained in a supine position. ?? COMPARISON: None Moderate size nonreversible perfusion abnormality in the apico-septal region. No evidence of reversibility to suggest ischemia. Gated post-stress images demonstrate apical akinesis. ??The left ventricular volume is normal and the left ventricular ejection fraction is 47% (normal >45%). IMPRESSION: ??1. No evidence of ischemia during pharmacologically-induced hyperemic flows. ?? 2. Moderate size apical infarction. 3. Akinesis in the apical portion. ??Normal left ventricular size and maintained global left ventricular function. LVEF is 47% at post-stress imaging. 4. In the differential diagnosis Takotsubo cardiomyopathy or cardiac sarcoidosis with an atypical location may be considered. If clinically indicated, CTA could be considered to exclude or confirm CAD process. (s)Tracy Collazo and Lazaro Juarez ??also participated in the interpretation of this examination. Electronically signed by: Dima Alfaro M.D. Requested By: LOBITO BEAN ??Trudi ? Dictated By: ?? BRENT TRISTAN M.D. ??on Sep 05 2017 ??4:32P This document has been electronically signed by: DIMA ALFARO M.D. on Sep 05 2017 ??4:49P [id number] JAMES M.D. FINAL REPORT The radiology attending physician has personally reviewed this study, and has reviewed and/or edited this written report and agrees with it. Attending: ??TRUDY, ??LOBITO Requesting: ??TRUDY, ??LOBITO Requesting Fax: ?? Attending Fax: ?? Attending ID: ??[id number] Requesting ID: ??[id number] Report To 1 ID: ??[id number] ? Report To 1 Name: ??, ?? Report To 1 FAX: ?? NextGen Order #: ?? Procedure Note Miscellaneous, Not In File - 09/05/2017 Trudi HAUSER M.D. FINAL REPORT The radiology attending physician has personally reviewed this study, and has reviewed and/or edited this written report and agrees with it. ACC# Date Time Exam [id number] September 05, 2017 14:36:00 [id number] MPI SPECT Multiple EXAMINATION: MYOCARDIAL IMAGING (REST AND PHARMACOLOGIC-STRESS/SPECT) DATE OF STUDY: 09/05/2017 RADIOPHARMACEUTICAL: Rest: 8.7 mCi Tc-99m tetrofosmin i.v. Pharmacologic Stress: 34.2 mCi Tc-99m tetrofosmin i.v. HISTORY: 42-year-old woman who smokes presents with syncope and chest pressure. Evaluate for ischemia. The electrocardiogram during infusion of the pharmacologic agent today was negative for ischemia. FINDINGS: Standard myocardial perfusion images were obtained after resting tracer injection. Subsequently, an intravenous infusion of Regadenoson was performed. A complete description of the stress test and electrocardiographic results supervised by staff of the Cardiovascular Division is available in the [facility] electronic medical record. Standard myocardial perfusion images were obtained after tracer injection at the peak effect of the drug. Images were obtained in a supine position. COMPARISON: None Moderate size nonreversible perfusion abnormality in the apico-septal region. No evidence of reversibility to suggest ischemia. Gated post-stress images demonstrate apical akinesis. The left ventricular volume is normal and the left ventricular ejection fraction is 47% (normal >45%). IMPRESSION: 1. No evidence of ischemia during pharmacologically-induced hyperemic flows. 2. Moderate size apical infarction. 3. Akinesis in the apical portion. Normal left ventricular size and maintained global left ventricular function. LVEF is 47% at post-stress imaging. 4. In the differential diagnosis Takotsubo cardiomyopathy or cardiac sarcoidosis with an atypical location may be considered. If clinically indicated, CTA could be considered to exclude or confirm CAD process. (s)Tracy Collazo and Lazaro Juarez also participated in the interpretation of this examination. Electronically signed by: Dima Alfaro M.D. Requested By: LOBITO BEAN M.D. Dictated By: BRENT TRISTAN M.D. on Sep 05 2017 4:32P This document has been electronically signed by: DIMA ALFARO M.D. on Sep 05 2017 4:49P [id number] JAMES M.D. FINAL REPORT The radiology attending physician has personally reviewed this study, and has reviewed and/or edited this written report and agrees with it. Attending: LOBITO BEAN Requesting: LOBITO BEAN Requesting Fax: Attending Fax: Attending ID: [id number] Requesting ID: [id number] Report To 1 ID: [id number] Report To 1 Name: , Report To 1 FAX: NextGen Order #: us Lobito Bean MD IMG NM PROCEDURES Final Res ult * STRESS ECHOCARDIOGRAPHY (09/05/2017) Anatomical Region Laterality Modality N/A Nuclear Medicine us Provider Scanning IMG NM PROCEDURES Final Result documented in this encounter Visit Diagnoses Not on filedocumented in this encounter Care Teams Mail Distribution Scheme Examiner Relationship Specialty Start Date End Date Tarvis Durand MD PCP - General 09/05/17 09/05/17 documented as of this encounter
--- OUTSIDE RECORDS SUMMARY | 2024-04-05 02:20 | XMS_ITS | Encounter Summary ---
Author Organization [facility] Facility Care Team Providers Care French Folder Name Role Phone Travis Durand MD Primary Care Provider [phone] Ashley Lamar MD Primary Care Provider [phone] Ashley Lamar MD Primary Care Provider [phone] Travis Durand MD Primary Care Provider [phone] Ashley Lamar MD Primary Care Provider [phone] Travis Durand MD Primary Care Provider +[phone] Ashley Lamar MD Primary Care Provider [phone] Travis Durand MD Primary Care Provider [phone] Ashley Lamar MD Primary Care Provider [phone] Travis Durand MD Primary Care Provider [phone] Chris Bean MD Primary Care Provider [phone] Encounter Details Date Type Department Care Team (Latest Contact Info) Description 07/18/2017 Orders Only [facility] CLINCONV ProviderLaquita MD [address] [place] [address] Social History Tobacco Use Types Packs/Day [...] Priority Date/Time Associated Diagnosis Comments CARDIOLOGY REPORT 07/18/2017 12: 00 AM CDT documented in this encounter Results * CARDIOLOGY REPORT (07/18/2017 12:00 AM CDT) Anatomical Region Laterality Modality Other Narrative 07/18/2017 12:00 AM CDT Ordered by an unspecified [...] documented as of this encounter Care Teams French Folder Relationship Specialty Start Date End Date Travis [...] Medicine 09/16/19 05/31/22 Chris Bean MD [address] [facility] [place] [address] PCP - General Family Medicine 09/08/22 documented as of this encounter
--- OUTSIDE RECORDS SUMMARY | 2024-04-05 02:20 | XMS_ITS | Encounter Summary ---
Author Organization [facility] Facility Care Team Providers Care Production Superintendent Name Role Phone Travis Durand MD Primary Care Provider [phone] Ashley Lamar MD Primary Care Provider [phone] Ashley Lamar MD Primary Care Provider [phone] Travis Durand MD Primary Care Provider [phone] Ashley Lamar MD Primary Care Provider [phone] Travis Durand MD Primary Care Provider +[phone] Ashley Lamar MD Primary Care Provider [phone] Travis Durand MD Primary Care Provider [phone] Ashley Lamar MD Primary Care Provider [phone] Travis Durand MD Primary Care Provider [phone] Chris Bean MD Primary Care Provider [phone] Encounter Details Date Type Department Care Team (Latest Contact Info) Description 07/20/2017 Orders Only [facility] CLINCONV ProviderLaquita MD [address] [place] [address] Social History Tobacco Use Types Packs/Day [...] Priority Date/Time Associated Diagnosis Comments CARDIOLOGY REPORT 07/20/2017 12: 00 AM CDT documented in this encounter Results * CARDIOLOGY REPORT (07/20/2017 12:00 AM CDT) Anatomical Region Laterality Modality Other Narrative 07/20/2017 12:00 AM CDT Ordered by an unspecified [...] documented as of this encounter Care Teams Production Superintendent Relationship Specialty Start Date End Date Travis [...] Medicine 09/16/19 05/31/22 Chris Bean MD [address] [place] [address] PCP - General Family Medicine 09/08/22 documented as of this encounter
--- OUTSIDE RECORDS SUMMARY | 2024-04-05 02:20 | XMS_ITS | Encounter Summary ---
Author Organization [facility] Facility Care Team Providers Care Research Associate Quality Control Qc Name Role Phone Travis Durand MD Primary Care Provider [phone] Ashley Lamar MD Primary Care Provider [phone] Ashley Lamar MD Primary Care Provider [phone] Travis Durand MD Primary Care Provider [phone] Ashley Lamar MD Primary Care Provider [phone] Travis Durand MD Primary Care Provider +[phone] Ashley Lamar MD Primary Care Provider [phone] Travis Durand MD Primary Care Provider [phone] Ashley Lamar MD Primary Care Provider [phone] Travis Durand MD Primary Care Provider [phone] Chris Bean MD Primary Care Provider [phone] Encounter Details Date Type Department Care Team (Latest Contact Info) Description 07/30/2017 Orders Only [facility] CLINCONV ProviderLaquita MD [address] [place] [address] Social History Tobacco Use Types Packs/Day [...] Priority Date/Time Associated Diagnosis Comments CARDIOLOGY REPORT 07/30/2017 12: 00 AM CDT documented in this encounter Results * CARDIOLOGY REPORT (07/30/2017 12:00 AM CDT) Anatomical Region Laterality Modality Other Narrative 07/30/2017 12:00 AM CDT Ordered by an unspecified [...] documented as of this encounter Care Teams Research Associate Quality Control Qc Relationship Specialty Start Date End Date Travis [...] MD [address] [place] [address] PCP - General Family Medicine 09/08/22 documented as of this encounter
--- OUTSIDE RECORDS SUMMARY | 2024-04-05 02:20 | XMS_ITS | Encounter Summary ---
Author Organization [facility] Facility Care Team Providers Care Coding Analyst Name Role Phone Travis Durand MD Primary Care Provider [phone] Ashley Lamar MD Primary Care Provider [phone] Ashley Lamar MD Primary Care Provider [phone] Travis Durand MD Primary Care Provider [phone] Ashley Lamar MD Primary Care Provider [phone] Travis Durand MD Primary Care Provider +[phone] Ashley Lamar MD Primary Care Provider [phone] Travis Durand MD Primary Care Provider [phone] Ashley Lamar MD Primary Care Provider [phone] Travis Durand MD Primary Care Provider +[phone] Chris Bean MD Primary Care Provider [phone] Encounter Details Date Type Department Care Team (Latest Contact Info) Description 07/16/2017 Orders Only [facility] CLINCONV ProviderLaquita MD [address] [place] [address] Social History Tobacco Use Types Packs/Day [...] Priority Date/Time Associated Diagnosis Comments CARDIOLOGY REPORT 07/16/2017 12: 00 AM CDT documented in this encounter Results * CARDIOLOGY REPORT (07/16/2017 12:00 AM CDT) Anatomical Region Laterality Modality Other Narrative 07/16/2017 12:00 AM CDT Ordered by an unspecified [...] documented as of this encounter Care Teams Coding Analyst Relationship Specialty Start Date End Date Travis [...] Medicine 09/16/19 05/31/22 Chris Bean MD [address] [place] [address] PCP - General Family Medicine 09/08/22 documented as of this encounter
--- OUTSIDE RECORDS SUMMARY | 2024-04-05 02:20 | XMS_ITS | Encounter Summary ---
Author Organization [facility] Facility Care Team Providers Care Terrazzo Layer Helper Name Role Phone Travis Durand MD Primary Care Provider [phone] Ashley Lamar MD Primary Care Provider [phone] Ashley Lamar MD Primary Care Provider [phone] Travis Durand MD Primary Care Provider [phone] Ashley Lamar MD Primary Care Provider [phone] Travis Durand MD Primary Care Provider [phone] Ashley Lamar MD Primary Care Provider [phone] Travis Durand MD Primary Care Provider [phone] Ashley Lamar MD Primary Care Provider [phone] Travis Durand MD Primary Care Provider [phone] Chris Bean MD Primary Care Provider [phone] Encounter Details Date Type Department Care Team (Latest Contact Info) Description 07/25/2017 Orders Only [facility] CLINCONV ProviderLaquita MD [address] [place] [address] Social History Tobacco Use Types Packs/Day [...] Priority Date/Time Associated Diagnosis Comments CARDIOLOGY REPORT 07/25/2017 12: 00 AM CDT documented in this encounter Results * CARDIOLOGY REPORT (07/25/2017 12:00 AM CDT) Anatomical Region Laterality Modality Other Narrative 07/25/2017 12:00 AM CDT Ordered by an unspecified [...] documented as of this encounter Care Teams Terrazzo Layer Helper Relationship Specialty Start Date End Date Travis [...] Medicine 09/16/19 05/31/22 Chris Bean MD [address] [facility] [address] PCP - General Family Medicine 09/08/22 documented as of this encounter
--- OUTSIDE RECORDS SUMMARY | 2024-04-05 02:20 | XMS_ITS | Encounter Summary ---
Author Organization [facility] Facility Care Team Providers Care Corn Popper Name Role Phone Travis Durand MD Primary Care Provider [phone] Ashley Lamar MD Primary Care Provider [phone] Ashley Lamar MD Primary Care Provider [phone] Travis Durand MD Primary Care Provider [phone] Ashley Lamar MD Primary Care Provider [phone] Travis Durand MD Primary Care Provider [phone] Ashley Lamar MD Primary Care Provider [phone] Travis Durand MD Primary Care Provider [phone] Ashley Lamar MD Primary Care Provider [phone] Travis Durand MD Primary Care Provider [phone] Chris Bean MD Primary Care Provider [phone] Encounter Details Date Type Department Care Team (Latest Contact Info) Description 07/28/2017 Orders Only [facility] CLINCONV ProviderLaquita MD [address] [place] [address] Social History Tobacco Use Types Packs/Day [...] Priority Date/Time Associated Diagnosis Comments CARDIOLOGY REPORT 07/28/2017 12: 00 AM CDT documented in this encounter Results * CARDIOLOGY REPORT (07/28/2017 12:00 AM CDT) Anatomical Region Laterality Modality Other Narrative 07/28/2017 12:00 AM CDT Ordered by an unspecified [...] documented as of this encounter Care Teams Corn Popper Relationship Specialty Start Date End Date Travis [...] 09/16/19 05/31/22 Chris Bean MD [address] [place] [address] PCP - General Family Medicine 09/08/22 documented as of this encounter
--- OUTSIDE RECORDS SUMMARY | 2024-04-05 02:20 | XMS_ITS | Encounter Summary ---
Author Organization [facility] Address [address] [address] Care Team Providers Care Antique Clocks Repairer Name Role Phone Travis Durand MD Primary Care Provider [phone] Reason for Visit * Reason Onset Date Comments Illness 09/19/2018 Encounter Details Date Type Department Care Team (Late st Contact Info) Description 09/19/2018 Telephone [facility] Family Medicine [address] [place] [address] Kyara Nj MA Illness Social History Tobacco Use Types Packs/Day Years Used Date Smoking Tobacco: Never Assessed Comments Unknown Sex and Gender Information Value Date Recorded Sex Assigned at Not on file Legal Sex Female 1:49 PM CDT Gender Identity Female 06/30/2020 9:08 AM CDT Sexual Orientation Not on file documented as of this encounter Miscellaneous Notes * Telephone Encounter - Viky Crain RN - 09/19/2018 3:53 PM CDT LMTCB needs to call back for appointment tomorrow * Telephone Encounter - Vira Josue PA - 09/19/2018 3:44 PM CDT Can she come in for appt tomorrow * Telephone Encounter - Kyara Nj MA - 09/19/2018 2:22 PM CDT Pt was bit by her hamster on her nose Area now red swollen painful Would like abx documented in this encounter Plan of Treatment Not on file documented as of this encounter Visit Diagnoses Not on filedocumented in this encounter Care Teams Antique Clocks Repairer Relationship Specialty Start Date End Date Travis Durand MD PCP - General 07/02/18 08/08/19 documented as of this encounter
--- OUTSIDE RECORDS SUMMARY | 2024-04-05 02:20 | XMS_ITS | Encounter Summary ---
Author Organization [facility] Address [address] [place] [address] Phone Care Team Providers Care Professional Services Manager Name Role Phone Ashley Lamar MD Primary Care Provider [phone] Reason for Visit * Reason Onset Date Comments work release letter needed 09/21/2017 Encounter Details Date Type Department Care Team (Late st Contact Info) Description 09/21/2017 Telephone [facility] Cardiology [facility] Medical Office Building [address] [place] [address] Rogerio Bean MD [address] [facility] [address] [place] [address] work release letter needed Social History Tobacco Use Types Packs/Day Years Used Date Smoking Tobacco: Never Assessed Comments Unknown Sex and Gender Information Value Date Recorded Sex Assigned at Not on file Legal Sex Female 1:49 PM CDT Gender Identity Female 06/30/2020 9:08 AM CDT Sexual Orientation Not on file documented as of this encounter Miscellaneous Notes * Telephone Encounter - Celi Bell RN - 09/21/2017 11:32 AM CDT Letter created and mailed * Telephone Encounter - Rogerio Bean MD - 09/21/2017 11:22 AM CDT No restrictions documented in this encounter Plan of Treatment Not on file documented as of this encounter Visit Diagnoses Not on filedocumented in this encounter Care Teams Professional Services Manager Relationship Specialty Start Date End Date Ashley Lmaar MD PCP - General 09/20/17 07/01/18 documented as of this encounter
--- OUTSIDE RECORDS SUMMARY | 2024-04-05 02:20 | XMS_ITS | Encounter Summary ---
Author Organization [facility] Healthcare Address [address] [place] [address] Care Team Providers Care Analytics Senior Manager Name Role Phone Unavailable Primary Care Provider Unavailabl e Encounter Details Date Type Department Care Team (Latest Contact Info) Description 10/01/2012 9:58 AM CDT Hospital Encounter [facility] Dain Lam MD [facility] [address] Displacement of lumbar intervertebral disc without myelopathy; Neuralgia, neuritis or radiculitis; Degeneration of lumbar or lumbosacral intervertebral disc Social History Tobacco Use Types Packs/Day Years [...] as of this encounter Visit Diagnoses Diagnosis Displacement of lumbar intervertebral disc without myelopathy Neuralgia, neuritis or radiculitis Degeneration of lumbar or lumbosacral intervertebral disc documented in this encounter
--- OUTSIDE RECORDS SUMMARY | 2024-04-05 02:20 | XMS_ITS | Encounter Summary ---
Author Organization [facility] Healthcare Address [address] [place] [address] Care Team Providers Care Aligner Name Role Phone Unavailable Primary Care Provider Unavailabl e Encounter Details Date Type Department Care Team (Late st Contact Info) Description 11/04/2012 1:05 PM CDT Hospital Encounter [facility] Swapnil Contreras MD [address] [facility] [address] [address] Lumbosacral spondylosis without myelopathy; Other specified pre-operative examination Social History Tobacco Use Types Packs/Day Years [...] Procedure Name Priority Date/Time Associated Diagnosis Comments URINALYSIS AND REFLEX TO MICROSCOPIC AND CULTURE Routine 11/04/2012 4:06 PM CDT HEMOGRAM WITH MANUAL DIFFERENTIAL Routine 11/04/2012 2:50 PM CDT APTT Routine 11/04/2012 2:50 PM CDT PROTIME-INR Routine 11/04/2012 2:50 PM CDT HCG, BLOOD, QUANTITATIVE Routine 11/04/2012 2:50 PM CDT BASIC METABOLIC PANEL Routine 11/04/2012 2:50 PM CDT XR CHEST PA LATERAL 2 VIEWS Routine 11/04/2012 12:00 AM CDT documented in this encounter Results * (ABNORMAL) Urinalysis reflex to microscopic and culture (11/04/2012 4:06 PM CDT) Ur Collection Type CLEAN CATCH 11/04/2012 4:15 PM [facility] HISTORICAL RESULTS Ur Culture Indicated? C&S NOT INDICATED 11/04/2012 4:15 PM [facility] HISTORICAL RESULTS Urine Color STRAW YELLOW 11/04/2012 4:15 PM [facility] HISTORICAL RESULTS Urine Clarity HAZY CLEAR 11/04/2012 4:15 PM [facility] HISTORICAL RESULTS Urine Glucose (UA) NORMAL NORMAL mg/dL 11/04/2012 4:15 PM [facility] HISTORICAL RESULTS Urine Bilirubin NEGATIVE NEGATIVE mg/dl 11/04/2012 4:15 PM [facility] HISTORICAL RESULTS Urine Ketones 5(H) NEGATIVE mg/dL 11/04/2012 4:15 PM [facility] HISTORICAL RESULTS Ur Specific [place] 1.007 1.005 - 1.025 11/04/2012 4:15 PM [facility] HISTORICAL RESULTS Urine Blood NEGATIVE NEGATIVE mg/dl 11/04/2012 4:15 PM [facility] HISTORICAL RESULTS Urine pH 6.5 5.0 - 8.0 11/04/2012 4:15 PM [facility] HISTORICAL RESULTS Urine Protein NEGATIVE NEGATIVE mg/dL 11/04/2012 4:15 PM [facility] HISTORICAL RESULTS Urine Urobilinogen NORMAL NORMAL mg/dL 11/04/2012 4:15 PM [facility] HISTORICAL RESULTS Urine Nitrite NEGATIVE NEGATIVE 11/04/2012 4:15 PM [facility] HISTORICAL RESULTS Ur Leukocyte Esterase NEGATIVE NEGATIVE Liyah/ul Ur Microscopic Review Indicated or Ordered Urine RBC <1 0 - 2 /HPF Urine WBC 1 0 - 2 /HPF Ur Squamous Epith Cells Rare /HPF 11/04/2012 4:06 PM CDT 11/04/2012 4:06 PM CDT Narrative [facility] HISTORICAL RESULTS - 11/04/2012 4:15 PM CDT Collected By ra ?? 181 us Swapnil Armstrong MD LAB MICROBIOLOGY - GEN ERAL ORDERABLES Final Result [facility] HISTORICAL RESULTS * hCG, blood, quantitative (11/04/2012 2:50 PM CDT) Beta HCG, Quant < 0.1 0.0 - 1.0 mIU/mL Comment: Weeks of preg ?BHCG ? Weeks of preg ? BHCG ?3 ? 5.8-71.2 ?10 ? 46,509-186,977 ?4 ? 9.5-750 ? 12 ? 27,832-210,612 ?5 ? 217-7,138 ? 14 ? 13,950-62,530 ?6 ? 158-31,795 ?15 ? 12,039-70,971 ?7 ?3,697-163,563 ?16 ?9,040-56,451 ?8 ? 32,065-149,571 ?17 ?8,175-55,868 ?9 ? 63,803-151,410 ?18 ?8,099-58,176 Post-menopause: ??0-8.3 ?METHOD: ??Serge ECLIA Intended for the early detection of . ? 11/04/2012 2:50 PM CDT 11/04/2012 3:40 PM CDT us Swapnil Armstrong MD LAB BLOOD ORDERABLES F inal Result [facility] HISTORICAL RESULTS * (ABNORMAL) Protime-INR (11/04/2012 2:50 PM CDT) PT 12.0(L) 12.2 - 14.8 SECONDS Comment: INR 0.86 0.01 - 5.99 Comment: Recommended Therapeutic range for Oral Anticoagulant Therapy No anti-coagulation therapy ? Normal Range: ?0.8-1.4 Anti-coagulation therapy ? Low intensity therapy ?2.0-3.0 ? High intensity therapy ?? 2.5-3.5 Critical Value ? Greater than or equal to 6.0 Patients should be monitored for serious bleeding. ?? 11/04/2012 2:50 PM CDT 11/04/2012 3:40 PM CDT Swapnil Armstrong MD LAB BLOOD ORDERABLES F inal Result Performing Organization Address [facility] Co de Phone Number [facility] HISTORICAL RESULTS * aPTT (11/04/2012 2:50 PM CDT) APTT 29 22 - 38 SECONDS 11/04/2012 2:50 PM CDT 11/04/2012 3:40 PM CDT Swapnil Armstrong MD LAB BLOOD ORDERABLES F inal Result Performing Organization Address [facility] Phone Number [facility] HISTORICAL RESULTS * (ABNORMAL) Hemogram with manual differential (11/04/2012 2:50 PM CDT) Pathologist [facility] WBC 6.2 4.6 - 10.2 x10 3/ul RBC 4.05 3.76 - 4.80 x10 6/ul Hemoglobin 13.5 11.0 - 15.0 g/dl Hct 39.5 33.0 - 43.0 % MCV 97.5(H) 80.0 - 97.0 fl MCH 33.3(H) 27.0 - 31.2 pg MCHC 34.2 31.8 - 35.4 g/dl RDW 12.9 11.6 - 14.8 % Plt Count 363 124 - 400 x10 3/ul 11/04/2012 3:47 PM [facility] HISTORICAL RESULTS MPV 9.8 7.4 - 10.4 fl 11/04/2012 3:47 PM [facility] MANUAL DIFF MANUAL DIFF - 11/04/2012 4:15 PM [facility] HISTORICAL RESULTS Neutrophils % (Manual) 69 37 - 80 % 11/04/2012 4:15 PM [facility] Lymphocytes % (Manual) 22 10 - 51 % 11/04/2012 4:15 PM [facility] Monocytes % (Manual) 5 0 - 12 % 11/04/2012 4:15 PM [facility] Eosinophils % (Manual) 3 0 - 7 % 11/04/2012 4:15 PM [facility] Basophils % (Manual) 1 0 - 1 % 11/04/2012 4:15 PM [facility] HISTORICAL RESULTS ABSOLUTE COUNTS ABSOLUTE COUNTS - 11/04/2012 4:15 PM [facility] Abs Neuts cells/mm3 4278 /ul 11/04/2012 4:15 PM [facility] Absolute Neutrophils 4.3 1.7 - 8.7 x10 3/ul 11/04/2012 4:15 PM [facility] Absolute Lymphocytes 1.4 0.2 - 4.6 x10 3/ul 11/04/2012 4:15 PM [facility] Absolute Monocytes 0.3 0.1 - 1.5 x10 3/ul 11/04/2012 4:15 PM [facility] Absolute Eosinophils 0.2 0.0 - 0.7 x10 3/ul 11/04/2012 4:15 PM [facility] Absolute Basophils 0.1 0.0 - 0.2 x10 3/ul 11/04/2012 4:15 PM [facility] Platelet Evaluation AGREE AGREE 11/04/2012 4:15 PM [facility] Comment:Slide review of plat elets correlates with instrument count. RBC Morphology NORMAL NORMAL 11/04/2012 2:50 PM CDT 11/04/2012 3:40 PM CDT us Swapnil Armstrong MD LAB BLOOD ORDERABLES F inal Result [facility] HISTORICAL RESULTS * Basic metabolic panel (11/04/2012 2:50 PM CDT) Sodium 135 135 - 145 mmol/L Potassium 3.5 3.3 - 5.1 mmol/L Chloride 98 96 - 108 mmol/L Carbon Dioxide 27 22 - 32 mmol/L Anion Gap 10 Glucose 103 70 - 110 mg/dL BUN 6 6 - 20 mg/dL Creatinine 0.5 0.5 - 1.1 mg/dL Kidney Disease Stage > 90 mL/MIN Comment: NOTE; ??The GFR is an estimated value using the creatinine, sex, age, and race of the patient. THE ESTIMATED GFR IS VALIDATED FOR AGES 18-70 YEARS STAGE ?mL/Min ?DESCRIPTION ??1 ?90 mL/min or more ?Normal or elevated GFR ??2 ? 60-89 mL/min ?Mildly decreased GFR ??3 ? 30-59 mL/min ?Moderately decreased GFR ??4 ? 15-29 mL/min ?Severely decreased GFR ??5 ? <15 mL/min ? Kidney failure or on dialysis @ Calcium 2.26 2.15 - 2.55 mmol/L 11/04/2012 2:50 PM CDT 11/04/2012 3:40 PM CDT us Swapnil Armstrong MD LAB BLOOD ORDERABLES F inal Result [facility] HISTORICAL RESULTS * XR Chest Pa Lateral 2 Views (11/04/2012 12:00 AM CDT) Anatomical Region Laterality Modality Body, Chest N/A Radiographic Gabby ging 11/04/2012 Impressions 11/04/2012 2:59 PM CDT ??No radiographic evidence of acute cardiopulmonary abnormality. THIS IS AN ELECTRONICALLY VERIFIED REPORT 11/04/2012 2:56 PM: ??Danny Ferrer M.D. Danny Ferrer M.D. CH: 02:56 PM 02:56 PM [facility] [EOD] Narrative 11/04/2012 2:59 PM CDT EXAMINATION: ??PA and lateral chest. HISTORY: ??Preoperative evaluation. TECHNIQUE: ??PA and lateral views the chest. COMPARISON: ??None. FINDINGS: ??Lungs are normally expanded and clear. ??There is no focal consolidation, pleural effusion, or pneumothorax. ??Cardiac and mediastinal silhouette are within normal limits. ??No acute osseous abnormalities are identified. Procedure Note Provider, Laquita, - 08/30/2020 EXAMINATION: PA and lateral chest. HISTORY: Preoperative evaluation. TECHNIQUE: PA and lateral views the chest. COMPARISON: None. FINDINGS: Lungs are normally expanded and clear. There is no focal consolidation, pleural effusion, or pneumothorax. Cardiac and mediastinal silhouette are within normal limits. No acute osseous abnormalities are identified. IMPRESSION: No radiographic evidence of acute cardiopulmonaryabnormality. THIS IS AN ELECTRONICALLY VERIFIED REPORT 11/04/2012 2:56 PM: Danny Ferrer M.D. Danny Ferrer M.D. CH:carol 02:56 PM 02:56 PM [facility] [EOD] Swapnil Armstrong MD IMG XR PROCEDURES Tanesha l Result documented in this encounter Visit Diagnoses Diagnosis Lumbosacral spondylosis without myelopathy Other specified pre-operative examination documented in this encounter
--- OUTSIDE RECORDS SUMMARY | 2024-04-05 02:20 | XMS_ITS | Encounter Summary ---
Author Organization [facility] Healthcare Address [address] [place] [address] Care Team Providers Care Tree Trimmer Name Role Phone Travis Durand MD Primary Care Provider [phone] Encounter Details Date Type Department Care Team (Late st Contact Info) Description 07/02/2018 6:03 AM CDT - 07/02/2018 12:00 PM CDT Hospital Encounter [facility] Vadim Matthew MD [address] [facility] [place] [address] Discharge Disposition: Discharge to home or self [...] Sign Reading Time Taken Comments Blood Pressure 118/73 07/01/2018 6:43 PM CDT Pulse 98 07/01/2018 6:43 PM CDT Temperature 36.3 ??C (97.4 ??F) 07/01/2018 6:43 PM CD T Respiratory Rate - - Oxygen Saturation 98% 07/01/2018 6:43 PM CDT Inhaled Oxygen Concentration - - Weight 53.1 kg (117 lb) 07/01/2018 6:43 PM CDT Height 154.9 cm (5' 1 ) 07/01/2018 6:43 PM CDT Body Mass Index 22.11 07/01/2018 6:43 PM CDT documented in this encounter Medications at Time of Discharge ALPRAZolam (XANAX) 1 mg tablet TAKE 1 TABLET DAILY NEEDED. 08/08/2017 03/17/2019 budesonide-formot yunior (SYMBICORT) 160-4.5 mcg/actuation inhaler 2 times daily. 08/08/2017 03/17/2019 cyclobenzaprine ER (AMRIX) 15 mg 24 hr capsule Take 15 mg by mouth daily 08/10/2017 05/21/2020 HYDROcodone-aceta minophen (NORCO) 5-325 mg per tabletIndications :Pain TK 1 T PO Q 6 H 0 01/21/2018 05/21/2020 topiramate (TOPAMAX) 50 mg tablet 2 times daily. 08/08/2017 01/17/2019 documented as of this encounter Discharge Disposition Disposition Code Departure Means Destination Discharge to home or self care documented in this encounter Plan of Treatment Not on file documented as of this encounter Procedures Procedure Name Priority Date/Time Associated Diagnosis Comments CARDIOLOGY REPORT 07/04/2018 12: 00 AM CDT CARDIAC CATHETERIZATION Routine 07/03/19 8:00 AM CDT CBC WITH AUTO DIFFERENTIAL Routine 07/02/2018 7:29 AM CDT APTT Routine 07/02/2018 7:29 AM CDT PROTIME-INR Routine 07/02/2018 7:29 AM CDT BASIC METABOLIC PANEL Routine 07/02/2018 7:29 AM CDT CARDIOLOGY REPORT 07/02/2018 12: 00 AM CDT documented in this encounter Results * CARDIOLOGY REPORT (07/04/2018 12:00 AM CDT) Anatomical Region Laterality Modality Other Narrative 07/04/2018 12:00 AM CDT Ordered by an unspecified provider. us Historical Provider MD [facility] Final Result * Cardiac Catheterization (07/02/2018 8:00 AM CDT) Anatomical Region Laterality Modality X-Ray Angiograph y 07/02/2018 8:00 AM CDT Narrative 07/04/2018 12:50 PM CDT DATE OF SERVICE: 07/02/2018 REFERRING PHYSICIAN: ??Dr. Durand. REASON FOR EVALUATION: ??Chest pain, abnormal stress test, history of congestive heart failure. HISTORY OF PRESENT ILLNESS: ??The patient is a 43-year-old lady with a history of smoking, COPD, was admitted to the hospital previously with congestive heart failure and subsequently had a stress test which was abnormal. ??Was brought to the molder labels for elective cardiac catheterization for definitive diagnosis of coronary artery disease. TECHNIQUE: ??After informed consent was obtained from the patient, the patient was brought to the cardiac catheterization lab, placed on the molder labels table, prepped and draped in the usual sterile fashion. ??A 4-Kuwaiti sheath was inserted in the left common femoral artery using modified Seldinger technique. ??The sheath was flushed. ??Through the sheath, a 4-Kuwaiti JL4 catheter was inserted, advanced into the left coronary artery. ??Left coronary artery angiogram was obtained. ??The catheter was exchanged over the guidewire and a 4-Kuwaiti JR4 catheter was advanced to the right coronary artery. ??Right coronary artery angiogram was obtained. ??The catheter was exchanged over the guidewire, and a 4-Kuwaiti pigtail catheter advanced to the left ventricle; left ventricular angiogram was obtained. ??The catheter then pulled. ??The sheath was pulled, with pressure for hemostasis. ??The patient tolerated the procedure well, with no complications, and was taken from the molder labels to room in stable condition with stable vital signs. REAL ESTATE ACCOUNTANT: ??Vadim Matthew MD. COMPLICATIONS: ??None. BLOOD LOSS: ??None. SEDATION: ??Conscious sedation using 2 mg of Versed, 25 mcg fentanyl. ??Starting time is 8:32 ending time is 8:44. HEMODYNAMICS: ??Heart rate is 95, aortic pressure is 108/76, LV pressure 109/4, LVEDP of 8. ANGIOGRAPHIC FINDINGS: 1. ??Left main medium size. ??No significant disease or stenosis. 2. ??LAD medium size artery, no significant disease or stenosis. ??There is a small diagonal branch that has minimal irregularity, no obstructive lesion. 3. ??Left circumflex artery is normal size artery, no significant stenosis. 4. ??RCA dominant vessel, significant irregularity and significant tortuosity with possible spasm, but no obstructive lesions noted. LV gram showed normal size left ventricle, near normal left ventricular systolic function, EF about 50%. SUMMARY: 1. ??No significant coronary artery disease. 2. ??Near normal left ventricular systolic function. RECOMMENDATIONS: ??Medical treatment, risk factor modification. NTS Job: [id number] Dictated By: Vadim Matthew MD Dictated For: Vadim ??MD Tiff [EOD] Procedure Note Provider, MD Laquita - 08/30/2020 DATE OF SERVICE: 07/02/2018 REFERRING PHYSICIAN: Dr. Durand. REASON FOR EVALUATION: Chest pain, abnormal stress test, history ofcongestive heart failure. HISTORY OF PRESENT ILLNESS: The patient is a 43-year-old lady with ahistory of smoking, COPD, was admitted to the hospital previously withcongestive heart failure and subsequently had a stress test which wasabnormal. Was brought to the molder labels for elective cardiaccatheterization for definitive diagnosis of coronary artery disease. TECHNIQUE: After informed consent was obtained from the patient, thepatient was brought to the cardiac catheterization lab, placed on the cathlab table, prepped and draped in the usual sterile fashion. A 4-Frenchsheath was inserted in the left common femoral artery using modifiedSeldinger technique. The sheath was flushed. Through the sheath, a4-Kuwaiti JL4 catheter was inserted, advanced into the left coronaryartery. Left coronary artery angiogram was obtained. The catheter wasexchanged over the guidewire and a 4-Kuwaiti JR4 catheter was advanced tothe right coronary artery. Right coronary artery angiogram was obtained.The catheter was exchanged over the guidewire, and a 4-Kuwaiti pigtailcatheter advanced to the left ventricle; left ventricular angiogram wasobtained. The catheter then pulled. The sheath was pulled, with pressurefor hemostasis. The patient tolerated the procedure well, with nocomplications, and was taken from the molder labels to room in stable conditionwith stable vital signs. REAL ESTATE ACCOUNTANT: Vadim Matthew MD. COMPLICATIONS: None. BLOOD LOSS: None. SEDATION: Conscious sedation using 2 mg of Versed, 25 mcg fentanyl.Starting time is 8:32 ending time is 8:44. HEMODYNAMICS: Heart rate is 95, aortic pressure is 108/76, LV cwaobyas590/4, LVEDP of 8. ANGIOGRAPHIC FINDINGS: 1. Left main medium size. No significant disease or stenosis. 2. LAD medium size artery, no significant disease or stenosis. There jerzy small diagonal branch that has minimal irregularity, no obstructivelesion. 3. Left circumflex artery is normal size artery, no significantstenosis. 4. RCA dominant vessel, significant irregularity and significanttortuosity with possible spasm, but no obstructive lesions noted. LV gram showed normal size left ventricle, near normal left ventricularsystolic function, EF about 50%. SUMMARY: 1. No significant coronary artery disease. 2. Near normal left ventricular systolic function. RECOMMENDATIONS: Medical treatment, risk factor modification. NTS Job: [id number] Dictated By: Vadim Matthew MD Dictated For: Vadim Matthew MD [EOD] Vadim Matthew MD CV CARDIAC CATH PROCEDURES Fi nal Result * aPTT (07/02/2018 7:29 AM CDT) APTT 28 26 - 33 SECONDS 07/02/2018 7:29 AM CDT 07/02/2018 7:33 AM CDT Vadim Matthew MD LAB BLOOD ORDERABLES Final Re sult [facility] HISTORICAL RESULTS * Protime-INR (07/02/2018 7:29 AM CDT) Pathologist [facility] PT 12.9 11.8 - 14.5 SECONDS INR 0.97 Comment: Recommended Therapeutic range for Oral Anticoagulant Therapy No anti-coagulation therapy ? Normal Range: ?0.8-1.4 Anti-coagulation therapy ? Low intensity therapy ?2.0-3.0 ? High intensity therapy ?? 2.5-3.5 Critical Value ? Greater than or equal to 5.0 Patients should be monitored for serious bleeding. ?? 07/02/2018 7:29 AM CDT 07/02/2018 7:33 AM CDT Vadim Matthew MD LAB BLOOD ORDERABLES Final Re sult [facility] HISTORICAL RESULTS * (ABNORMAL) CBC with auto differential (07/02/2018 7:29 AM CDT) [facility] WBC 10.1(H) 3.8 - 9.9 X10 3/ul RBC 3.86(L) 3.90 - 5.20 x10 6/ul Hemoglobin 12.8 11.9 - 15.5 g/dL Hct 39.4 35.6 - 45.5 % MCV 102.1(H) 81.3 - 96.4 fl MCH 33.2 27.1 - 33.3 pg MCHC 32.5 32.3 - 35.7 g/dl RDW 14.4 11.1 - 14.9 % Plt Count 269 150 - 400 x10 3/ul MPV 9.0(L) 9.1 - 12.3 fl Neut % 74.0 % Immature Gran % 0.4 % 9 7:35 AM T [facility] HISTORICAL RESULTS Lymph % 18.6 % Barbour % 4.9 % Eos % 1.3 % Baso % 0.8 % Absolute Neuts (auto) 7.5(H) 1.7 - 6.5 x10 3/ul Immature Gran # 0.0 0.0 - 0.1 x10 3/ul Absolute Lymphs (auto) 1.9 0.8 - 3.3 x10 3/ul Absolute Monos (auto) 0.5 0.2 - 0.8 x10 3/ul Absolute Eos (auto) 0.1 0.0 - 0.5 x10 3/ul Absolute Basos (auto) 0.1 0.0 - 0.1 x10 3/ul Nucleat RBC Rel Count 0.0 #/100WBC Absolute Nucleated RBC 0.00 0.00 - 0.01 x10 3/ul Absolute Neutrophils 7500 200 - 8000 /ul 07/02/2018 7:29 AM CDT 07/02/2018 7:33 AM CDT us Vadim Matthew MD LAB BLOOD ORDERABLES Final Re sult [facility] HISTORICAL RESULTS * (ABNORMAL) Basic metabolic panel (07/02/2018 7:29 AM CDT) Sodium 144 135 - 145 mmol/L Potassium 4.1 3.3 - 5.1 mmol/L Chloride 108 96 - 108 mmol/L Carbon Dioxide 21(L) 22 - 32 mmol/L Anion Gap 15 7 - 16 Glucose 64(L) 70 - 100 mg/dL BUN 14 8 - 25 mg/dL Creatinine 0.6 0.5 - 1.1 mg/dL Comment: NOTE: Estimated GFR (Cockroft-Gault) will NOT be calculated unless patient Height and Weight were entered. Also, Kidney Disease Stage (GFR) and Estimated GFR (Cockroft-Gault) will NOT be calculated if Creatinine result is <0.2. Kidney Disease Stage > 90 mL/MIN Comment: NOTE; ??The GFR is an estimated value using the creatinine, sex, age, and race of the patient. THE Estimated Kidney Disease GFR is validated for AGES 18-70 YEARS STAGE ?mL/Min ?DESCRIPTION ??1 ?90 mL/min or more ?Normal or elevated GFR ??2 ? 60-89 mL/min ?Mildly decreased GFR ??3 ? 30-59 mL/min ?Moderately decreased GFR ??4 ? 15-29 mL/min ?Severely decreased GFR ??5 ? <15 mL/min ? Kidney failure or on dialysis @ Est GFR (Cockcroft-G) 96 ml/MIN Comment: Estimated GFR(Cockroft-Gault)is used to calculate patient medication dosage Calcium 8.6 8.6 - 10.3 mg/dL 07/02/2018 7:29 AM CDT 07/02/2018 7:33 AM CDT Vadim Matthew MD LAB BLOOD ORDERABLES Final Re sult [facility] HISTORICAL RESULTS * CARDIOLOGY REPORT (07/02/2018 12:00 AM CDT) Anatomical Region Laterality Modality Other Narrative 07/02/2018 12:00 AM CDT Ordered by an unspecified provider. Historical Provider [facility] Final Result documented in this encounter Visit Diagnoses Not on filedocumented in this encounter Care Teams Tree Trimmer Relationship Specialty Start Date End Date Travis Durand MD PCP - General 07/02/18 08/08/19 documented as of this encounter
--- OUTSIDE RECORDS SUMMARY | 2024-04-05 02:20 | XMS_ITS | Encounter Summary ---
Author Organization [facility] Care Team Providers Care Human Resources Associate Name Role Phone Travis Durand MD Primary Care Provider [phone] Ashley Lamar MD Primary Care Provider [phone] Ashley Lamar MD Primary Care Provider [phone] Travis Durand MD Primary Care Provider [phone] Ashley Lamar MD Primary Care Provider [phone] Travis Durand MD Primary Care Provider [phone] Ashley Lamar MD Primary Care Provider [phone] Travis Durand MD Primary Care Provider [phone] Ashley Lamar MD Primary Care Provider [phone] Travis Durand MD Primary Care Provider [phone] Chris Bean MD Primary Care Provider [phone] Encounter Details Date Type Department Care Team (Latest Contact Info) Description 11/10/2016 Orders Only [facility] CLINCONV ProviderLaquita MD [address] [place] [id number] Social History Tobacco Use Types Packs/Day [...] Priority Date/Time Associated Diagnosis Comments SCAN - PATHOLOGY 11/13/2016 12:0 0 AM CDT documented in this encounter Results * SCAN - PATHOLOGY (11/13/2016 12:00 AM CDT) Narrative 11/13/2016 12:00 AM CDT Ordered by an unspecified [...] documented as of this encounter Care Teams Human Resources Associate Relationship Specialty Start Date End Date Travis [...] Medicine 09/16/19 05/31/22 Chris Bean MD [address] [place] [address] PCP - General Family Medicine 09/08/22 documented as of this encounter
--- OUTSIDE RECORDS SUMMARY | 2024-04-05 02:20 | XMS_ITS | Encounter Summary ---
Author Organization [facility] Care Team Providers Care Crisis Mental Health Therapist Name Role Phone Travis Durand MD Primary Care Provider [phone] Ashley Lamar MD Primary Care Provider [phone] Ashley Lamar MD Primary Care Provider [phone] Travis Durand MD Primary Care Provider [phone] Ashley Lamar MD Primary Care Provider [phone] Travis Durand MD Primary Care Provider [phone] Ashley Lamar MD Primary Care Provider [phone] Travis Durand MD Primary Care Provider [phone] Ashley Lamar MD Primary Care Provider [phone] Travis Durand MD Primary Care Provider [phone] Chris Bean MD Primary Care Provider [phone] Encounter Details Date Type Department Care Team (Latest Contact Info) Description 07/27/2017 Orders Only [facility] CLINCONV ProviderLaquita MD [address] [place] [address] Social History Tobacco Use Types Packs/Day [...] documented as of this encounter Care Teams Crisis Mental Health Therapist Relationship Specialty Start Date End Date Travis [...] Medicine 09/16/19 05/31/22 Chris Bean MD [address] [facility] [place] [address] PCP - General Family Medicine 09/08/22 documented as of this encounter
--- OUTSIDE RECORDS SUMMARY | 2024-04-05 02:20 | XMS_ITS | Encounter Summary ---
Author Organization [facility] Healthcare Address [address] [place] [address] Care Team Providers Care Radiator Repairer Name Role Phone Unavailable Primary Care Provider Unavailabl e Encounter Details Date Type Department Care Team (Late st Contact Info) Description 11/19/2012 1:39 PM CDT - 11/20/2012 3:10 PM CDT Hospital Encounter [facility] Swapnli Gusman MD [facility] [address] [address] Displacement of lumbar intervertebral disc without myelopathy; Thoracic or lumbosacral neuritis or radiculitis; Allergic rhinitis; Insomnia; Urinary tract infection; Anxiety state Social History Tobacco Use Types Packs/Day Years Used Date Smoking Tobacco: Never Assessed Comments Unknown Sex and Gender Information Value Date Recorded Sex Assigned at Not on file Legal Sex Female 1:49 PM CDT Gender Identity Female 06/30/2020 9:08 AM CDT Sexual Orientation Not on file documented as of this encounter Last Filed Vital Signs Vital Sign Reading Time Taken Comments Blood Pressure 124/85 11/04/2012 1:48 PM CDT Pulse 58 11/04/2012 1:48 PM CDT Temperature 36.2 ??C (97.1 ??F) 11/04/2012 1:48 PM CD T Respiratory Rate - - Oxygen Saturation 98% 11/04/2012 1:48 PM CDT Inhaled Oxygen Concentration - - Weight 69 kg (152 lb 3 oz) 11/04/2012 1:48 PM CD T Height 157.5 cm (5' 2 ) 11/04/2012 1:48 PM CDT Body Mass Index 27.84 11/04/2012 1:48 PM CDT documented in this encounter Plan of Treatment Not on file documented as of this encounter Procedures Procedure Name Priority Date/Time Associated Diagnosis Comments SCAN - PATHOLOGY 11/22/2012 12:0 0 AM CDT XR SPINE LUMBAR 1 VIEW Routine 11/19/2012 12:00 AM CDT documented in this encounter Results * SCAN - PATHOLOGY (11/22/2012 12:00 AM CDT) Narrative 11/22/2012 12:00 AM CDT Ordered by an unspecified provider. us Historical Provider Final Res ult * XR Spine Lumbar 1 View (11/19/2012 12:00 AM CDT) Anatomical Region Laterality Modality Spine N/A Radiographic Gabby ging 11/19/2012 Impressions 11/19/2012 2:56 PM CDT ??Intraoperative marking with the metallic probe directed towards the L5-S1 interspace. THIS IS AN ELECTRONICALLY VERIFIED REPORT 11/19/2012 2:52 PM: ??Danny Ferrer M.D. Danny Ferrer M.D. CH: 02:52 PM 02:52 PM BM [EOD] Narrative 11/19/2012 2:56 PM CDT EXAMINATION: ??Lumbar spine series. HISTORY: ??Pain. TECHNIQUE: ??A single cross-table lateral view the lumbar spine was obtained for the purpose of marking. COMPARISON: ??Correlation with MRI lumbar spine 07/05/2012. FINDINGS: ??There is a metallic marking device directed towards the posterior elements at the L5-S1 interspace. ??There is disc space narrowing at this level with grade 1 retrolisthesis of L5 on S1 and facet sclerosis. Procedure Note Provider, MD Laquita - 08/30/2020 EXAMINATION: Lumbar spine series. HISTORY: Pain. TECHNIQUE: A single cross-table lateral view the lumbar spine wasobtained for the purpose of marking. COMPARISON: Correlation with MRI lumbar spine 07/05/2012. FINDINGS: There is a metallic marking device directed towards theposterior elements at the L5-S1 interspace. There is disc space narrowing at thislevel with grade 1 retrolisthesis of L5 on S1 and facet sclerosis. IMPRESSION: Intraoperative marking with the metallic probe directedtowards the L5-S1 interspace. THIS IS AN ELECTRONICALLY VERIFIED REPORT 11/19/2012 2:52 PM: Danny Ferrer M.D. Danny Ferrer M.D. CH: 02:52 PM 02:52 PM [facility] [EOD] Swapnil Armstrong MD IMG XR PROCEDURES Tanesha l Result documented in this encounter Visit Diagnoses Diagnosis Displacement of lumbar intervertebral disc without myelopathy Thoracic or lumbosacral neuritis or radiculitis Thoracic or lumbosacral neuritis or radiculitis, unspecified Allergic rhinitis Allergic rhinitis, cause unspecified Insomnia Insomnia, unspecified Urinary tract infection Urinary tract infection, site not specified Anxiety state Anxiety state, unspecified documented in this encounter
--- OUTSIDE RECORDS SUMMARY | 2024-04-05 02:20 | XMS_ITS | Encounter Summary ---
Author Organization [facility] Healthcare Address [address] [place] [address] Care Team Providers Care Assistant Paralegal Name Role Phone Unavailable Primary Care Provider Unavailabl e Encounter Details Date Type Department Care Team (Latest Contact Info) Description 09/10/2012 1:59 PM CDT - 09/10/2012 3:12 PM CDT Hospital Encounter [facility] Dain Lam MD [address] [place] [address] Thoracic or lumbosacral neuritis or radiculitis Social History Tobacco Use Types Packs/Day Years Used Date Smoking Tobacco: Never Assessed Comments Unknown Sex and Gender Information Value Date Recorded Sex Assigned at Not on file Legal Sex Female 1:49 PM CDT Gender Identity Female 06/30/2020 9:08 AM CDT Sexual Orientation Not on file documented as of this encounter Last Filed Vital Signs Vital Sign Reading Time Taken Comments Blood Pressure 114/64 09/10/2012 2:19 PM CDT Pulse 87 09/10/2012 2:19 PM CDT Temperature 36.7 ??C (98.1 ??F) 09/10/2012 2:19 PM CD T Respiratory Rate - - Oxygen Saturation 98% 09/10/2012 2:19 PM CDT Inhaled Oxygen Concentration - - Weight - - Height - - Body Mass Index - - documented in this encounter Plan of Treatment Not on file documented as of this encounter Visit Diagnoses Diagnosis Thoracic or lumbosacral neuritis or radiculitis Thoracic or lumbosacral neuritis or radiculitis, unspecified documented in this encounter
--- OUTSIDE RECORDS SUMMARY | 2024-04-05 02:20 | XMS_ITS | Encounter Summary ---
Author Organization [facility] Care Team Providers Care Manager Program Management Name Role Phone Travis Durand MD Primary Care Provider [phone] Ashley Lamar MD Primary Care Provider [phone] Ashley Lamar MD Primary Care Provider [phone] Travis Durand MD Primary Care Provider [phone] Ashley Lamar MD Primary Care Provider [phone] Travis Durand MD Primary Care Provider [phone] Ashley Lamar MD Primary Care Provider [phone] Travis Durand MD Primary Care Provider [phone] Ashley Lamar MD Primary Care Provider [phone] Travis Durand MD Primary Care Provider [phone] Chris Bean MD Primary Care Provider [phone] Encounter Details Date Type Department Care Team (Latest Contact Info) Description 07/19/2017 Orders Only [facility] CLINCONV ProviderLaquita MD [address] [place] [address] Social History Tobacco Use Types Packs/Day [...] Date/Time Associated Diagnosis Comments SCAN - LABS 07/19/2017 12:00 AM CDT documented in this encounter Results * SCAN - LABS (07/19/2017 12:00 AM CDT) Narrative 07/19/2017 12:00 AM CDT Ordered by an unspecified [...] documented as of this encounter Care Teams Manager Program Management Relationship Specialty Start Date End Date Travis [...] Medicine 09/16/19 05/31/22 Chris Bean MD [address] [place] [address] PCP - General Family Medicine 09/08/22 documented as of this encounter
--- OUTSIDE RECORDS SUMMARY | 2024-04-05 02:20 | XMS_ITS | Encounter Summary ---
Author Organization [facility] Address [address] [place] [address] Care Team Providers Care It Security Architect Name Role Phone Unavailable Primary Care Provider Unavailabl e Encounter Details Date Type Department Care Team (Latest Contact Info) Description 07/27/2017 9:38 AM CDT Hospital Encounter [facility] OP Travis Durand MD [address] [place] [address] Syncope and collapse; Transient global amnesia; Tachycardia Social History Tobacco Use Types Packs/Day Years [...] Name Priority Date/Time Associated Diagnosis Comments US CAROTIDS DUPLEX BILATERAL Routine 07/27/2017 10:19 AM CDT TRANSTHORACIC ECHO (TTE) COMPLETE W DOPPLER/CF Routine 07/27/2017 10:18 AM CDT CARDIOLOGY REPORT 07/27/2017 12: [address] HEAD WO CONTRAST Routine 07/27/2017 1 2:00 AM CDT documented in this encounter Results * US Carotids Duplex Bilateral (07/27/2017 10:19 AM CDT) Anatomical Region Laterality Modality Vascular Bilateral Ultrasound 07/27/2017 10:1 9 AM CDT Impressions 07/27/2017 2:13 PM CDT 1. ??Normal carotid study bilaterally. 2. ??Antegrade flow noted bilateral vertebral arteries. NTS Job: [id number] Dictated By: Kenn Love MD Dictated For: Kenn ?MD Kennedy [EOD] Narrative 07/27/2017 2:13 PM CDT DATE OF SERVICE: 07/27/2017 REASON FOR EXAM: ??Syncope. COMMENTS ON THE RIGHT: ??Peak systolic velocity in the CCA of 74 and 66. ??ICA 42 and 67. ??ICA is smooth. ??ECA velocity of 57. ??Antegrade flow noted with a vertebral velocity of 53. COMMENTS ON THE LEFT: ??Peak systolic velocity in the CCA of 86 and 59. ??ICA 44 and 54. ??Left ICA is smooth. ??ECA velocity of 67. ??Antegrade flow noted in vertebral artery with a velocity of 38. Procedure Note Provider, MD Laquita - 08/30/2020 DATE OF SERVICE: 07/27/2017 REASON FOR EXAM: Syncope. COMMENTS ON THE RIGHT: Peak systolic velocity in the CCA of 74 and 66.ICA 42 and 67. ICA is smooth. ECA velocity of 57. Antegrade flow notedwith a vertebral velocity of 53. COMMENTS ON THE LEFT: Peak systolic velocity in the CCA of 86 and 59.ICA 44 and 54. Left ICA is smooth. ECA velocity of 67. Antegrade flownoted in vertebral artery with a velocity of 38. IMPRESSION: 1. Normal carotid study bilaterally. 2. Antegrade flow noted bilateral vertebral arteries. NTS Job: [id number] Dictated By: Kenn Love MD Dictated For: Kenn Love MD [EOD] us Travis Durand MD IMG US PROCEDURES Final Result * Transthoracic Echo Complete W Doppler/CF (07/27/2017 10:18 AM CDT) Anatomical Region Laterality Modality Ultrasound 07/27/2017 10:1 8 AM CDT Narrative 07/27/2017 4:30 PM CDT Results viewable in EMR, Cardiovascular [EOD] Procedure Note Provider, Laquita, - 08/30/2020 Results viewable in EMR, Cardiovascular [EOD] us Travis Durand MD CV ECHO PROCEDURES Final Result * CARDIOLOGY REPORT (07/27/2017 12:00 AM CDT) Anatomical Region Laterality Modality Other Narrative 07/27/2017 12:00 AM CDT Ordered by an unspecified provider. Historical Provider CV CARDIAC SERVICES PROCE DUR Final Result * CT Head WO Contrast (07/27/2017 12:00 AM CDT) Anatomical Region Laterality Modality Head and Neck N/A Computed Tomogra phy 07/27/2017 Impressions 07/27/2017 10:09 AM CDT ??No evidence of an acute intracranial process. 07/27/2017 10:06 AM Ismael Devi M.D. AB: D: ??07/27/2017 10:06 AM T: ??07/27/2017 10:06 AM Report ID: [id number] Reading Location: ??[id number] [EOD] Narrative 07/27/2017 10:09 AM CDT EXAM DESCRIPTION: ??CT Head WO IV Contrast COMPLETED DATE/TIME: ??07/27/2017 9:54 am REASON FOR STUDY: ??Dizziness for 2 weeks, syncope. COMPARISON: ??None available. TECHNIQUE: ??Axial images acquired through the brain without intravenous contrast. ??Images stored on PACS. Automated exposure control was used as a dose optimization technique for this examination. FINDINGS: CEREBRUM: There is no midline shift or mass effect. ??There is no intracranial hemorrhage or CT evidence of acute ischemia. WHITE MATTER: Normal. POSTERIOR FOSSA: No masses. No hemorrhage. No evidence for acute infarction. EXTRA-AXIAL SPACES: No fluid collections. No masses. BRAIN VOLUME: Within normal limits for age. ORBITS: No significant abnormality. CALVARIUM: No fracture. PARANASAL SINUSES AND MASTOIDS: No fluid or mucosal thickening. OTHER: No other significant abnormality. Procedure Note Provider, MD Laquita - 08/30/2020 EXAM DESCRIPTION: CT Head WO IV Contrast COMPLETED DATE/TIME: 07/27/2017 9:54 am REASON FOR STUDY: Dizziness for 2 weeks, syncope. COMPARISON: None available. TECHNIQUE: Axial images acquired through the brain without intravenous contrast. Images stored on PACS. Automated exposure control was used as a dose optimization technique for this examination. FINDINGS: CEREBRUM: There is no midline shift or mass effect. There is nointracranial hemorrhage or CT evidence of acute ischemia. WHITE MATTER: Normal. POSTERIOR FOSSA: No masses. No hemorrhage. No evidence for acuteinfarction. EXTRA-AXIAL SPACES: No fluid collections. No masses. BRAIN VOLUME: Within normal limits for age. ORBITS: No significant abnormality. CALVARIUM: No fracture. PARANASAL SINUSES AND MASTOIDS: No fluid or mucosal thickening. OTHER: No other significant abnormality. IMPRESSION: No evidence of an acute intracranial process. 07/27/2017 10:06 AM Ismael Devi M.D. AB: Report ID: [id number] Reading Location: [place] [address] [EOD] Travis Duarnd MD IMG CT PROCEDURES Final Result documented in this encounter Visit Diagnoses Diagnosis Syncope and collapse Transient global amnesia Tachycardia Unspecified tachycardia documented in this encounter
--- OUTSIDE RECORDS SUMMARY | 2024-04-05 02:20 | XMS_ITS | Encounter Summary ---
Author Organization [facility] Facility Care Team Providers Care Eligibility Supervisor Name Role Phone Travis Durand MD Primary Care Provider [phone] Ashley Lamar MD Primary Care Provider [phone] Ashley Lamar MD Primary Care Provider [phone] Travis Durand MD Primary Care Provider [phone] Ashley Lamar MD Primary Care Provider [phone] Travis Durand MD Primary Care Provider [phone] Ashley Lamar MD Primary Care Provider [phone] Travis Durand MD Primary Care Provider [phone] Ashley Lamar MD Primary Care Provider [phone] Travis Durand MD Primary Care Provider [phone] Chris Bean MD Primary Care Provider [phone] Encounter Details Date Type Department Care Team (Latest Contact Info) Description 04/05/2016 Orders Only [facility] CLINCONV ProviderLaquita MD [address] [place] [address] Social History Tobacco Use Types Packs/Day [...] Date/Time Associated Diagnosis Comments PROCEDURE - RESULT 04/21/2016 12 :00 AM RUBY DEVELOPER documented in this encounter Results * PROCEDURE - RESULT (04/21/2016 12:00 AM RUBY DEVELOPER) Narrative 04/21/2016 12:00 AM RUBY DEVELOPER Ordered by an unspecified provider. us Historical [...] documented as of this encounter Care Teams Eligibility Supervisor Relationship Specialty Start Date End Date [...] Medicine 09/16/19 05/31/22 Chris Bean MD [address] [facility] [place] [address] PCP - General Family Medicine 09/08/22 documented as of this encounter
--- OUTSIDE RECORDS SUMMARY | 2024-04-05 05:59 | XMS_ITS | Encounter Summary ---
Author Organization [facility] Healthcare Address [address] [place] [address] Care Team Providers Care Seeing Eye Dog Teacher Name Role Phone Chris Bean MD Primary Care Provider [phone] Encounter Details Date Type Department Care Team (Late st Contact Info) Description 09/17/2023 Nurse Triage [facility] Medical Group Family Medicine at [address] [place] [address] Chris Bean MD [address] [place] [address] [address] [place], [place] [id number] Social History Tobacco Use Types Packs/Day Years [...] right hand. Pt Hx of Detox at [facility] last March 2023. Pt does not [...] or suspected Protocols used: Alcohol Use and [id number] * Telephone Encounter - Yissel Franco RN [...] she is notacting like herself at all. CIPHER EXPERT did speak to the patient briefly ,who reports that she has been Self Medicating w/ Liquor. Patient reports drinking a pint a day of vodka or tequilla since about April, Does message need to be routed? Yes-Action Needed documented in this encounter Plan of Treatment Not on file documented as of this encounter Visit Diagnoses Not on filedocumented in this encounter Care Teams Seeing Eye Dog Teacher Relationship Specialty Start Date End Date Chris Bean MD [address] [facility] [address] [place] [address] PCP - General Family Medicine 09/08/22 documented as of this encounter
--- OUTSIDE RECORDS SUMMARY | 2024-04-05 05:59 | XMS_ITS | Clinical Summary ---
Author Organization [facility] Address [address] [place] [address] Care Team Providers Care Supervisor Computer Operations Name Role Phone Chris Bean MD Primary Care Provider Allergies Active Allergy Reactions Criticality Noted Date [...] 05/16/2022 Assessment & Plan (05/16/2022 4:51 PM LITHOGRAPHIC PLATE MAKER): Ms. Whitt has symptoms that are consistent [...] [facility] Medical [facility] Family Medicine at [address] [place] [address] Chris Bean MD Medical Question/Miscellaneou s 03/05/2024 6:16 AM LITHOGRAPHIC PLATE MAKER - 03/05/2024 11:59 PM LITHOGRAPHIC PLATE MAKER Hospital Encounter [address] [address] Thoracic radiculopathy Discharge Disposition: Discharge to home or self care 01/23/2024 Orders Only [facility] Information Management [address] [place] [address] Chris Bean MD 01/23/2024 Nurse Triage [facility] at [address] [place] [phone] Ashley Dale, RN 01/23/2024 Telephone [facility] at [address] [place] [address] Chris Bean MD Medical Question/Miscellaneou s 01/14/2024 1:15 PM CDT Telemedicine [facility] at [address] [place] [phone] Chris Bean MD Chronic bilateral low back pain without sciatica (Primary Dx); Thoracic radiculopathy 01/11/2024 Nurse Triage [facility] at [address] [place] [phone] Olivia Duran RN 01/11/2024 Telephone [facility] at [address] [place] [phone] Chris Bean MD Medication Request from Last [...] Read Routine (OP Routine) 03/05/2024 7:12 AM LITHOGRAPHIC PLATE MAKER Thoracic radiculopathy SCAN - LABS 01/23/2024 SCAN - RADIOLOGY/IMAGING 01/23/2024 COLONOSCOPY Routine 11/13/2019 from Last 3 Months or Most Recently Relevant to Health Maintenance Results * MRI Thoracic Spine WO Contrast (03/05/2024 7:12 AM LITHOGRAPHIC PLATE MAKER) Anatomical Region Laterality Modality Spine N/A Magnetic Resonan ce 03/05/2024 8:43 AM LITHOGRAPHIC PLATE MAKER Narrative 03/05/2024 9:54 AM LITHOGRAPHIC PLATE MAKER EXAM DESCRIPTION: ?? MRI THORACIC SPINE WO [...] AM T: ??03/05/2024 9:54 AM Report ID: [id number] Reading Location: ??[id number] Procedure Note Ravi Durham MD - 03/05/2024 [...] relevant portions of CT lumbar spine without okoyvjxv75/14/2022 relevant portions of MRI lumbar spine without [...] by Ravi CamargoD. MATTHEW: MATTHEW Report ID: [id number] Reading Location: [id number] Chris Bean MD IMG MRI PROCEDURES Final Result * SCAN - RADIOLOGY/IMAGING (01/23/2024) Anatomical Region Laterality Modality Other Chris Bean MD Final Result * SCAN - LABS (01/23/2024) Chris Bean MD Final Result * HM COLONOSCOPY (11/13/2019) Laquita Davis MD HEALTH MAINTENANCE Final Result from Last 3 Months or Most Recently Relevant to Health Maintenance Insurance [place] Advance Directives For more information, please contact: [phone] * Full Code (Latest Code Status on File) Date Activated Date Inactivated Comments 03/23/2023 4:06 PM 03/27/2023 5:03 PM Care Teams Supervisor Computer Operations Relationship Specialty Start Date End Date Chris Bean MD [address] [place] [address] PCP - General Family Medicine 09/08/22
--- OUTSIDE RECORDS SUMMARY | 2024-04-05 05:59 | XMS_ITS | Encounter Summary ---
Author Organization [facility] Healthcare Address [address] [place] [address] Care Team Providers Care Systems Integration Engineer Name Role Phone Chris Bean MD Primary Care Provider Reason for Visit * Reason Onset Date Comments Medication Request 06/06/2023 Encounter Details Date Type Department Care Team (Late st Contact Info) Description 06/06/2023 Nurse Triage [facility] Medical Group Family Medicine at [address] [address] Malinda Rolle, RUTHY Social History [...] MA - 06/06/2023 1:36 PM CST sent ERCIAL OCEAN CLAMMER * Telephone Encounter - Chris Bean MD - 06/06/2023 1:04 PM CST Flexeril 10mg TID x30d #90 can be sent. ERCIAL OCEAN CLAMMER * Telephone Encounter - Malinda Rolle RN [...] refill) Protocols used: Medication Refill and Renewal [id number] ERCIAL OCEAN CLAMMER * Telephone Encounter - Gaby Robles RN - 06/06/2023 10:29 AM CST Regarding: back pain moderate-severe ----- Message from Viky Rock sent at 06/06/2023 10:05 AM COMMERCIAL OCEAN CLAMMER ----- Symptom Based Call Chief Complaint(s): back [...] message need to be routed? Yes-Action Needed ERCIAL OCEAN CLAMMER documented in this encounter Plan of Treatment Not on file documented as of this encounter Visit Diagnoses Not on filedocumented in this encounter Care Teams Systems Integration Engineer Relationship Specialty Start Date End Date Chris Bean MD [address] [facility] [address] [place] [address] PCP - General Family Medicine 09/08/22 documented as of this encounter
--- OUTSIDE RECORDS SUMMARY | 2024-04-05 05:59 | XMS_ITS | Encounter Summary ---
Author Organization [facility] Healthcare Address [address] [place] [address] Care Team Providers Care Investigator Utility Bill Complaints Name Role Phone Chris Bean MD Primary Care Provider [phone] Reason for Referral * MRI/CAT/PET Scan (Routine) - Closed Specialty Diagnoses / Procedures Referred By Ralph vásquez Referred To Contact Radiology Diagnoses Thoracic radiculopathy Procedures MRI Thoracic Spine WO Contrast Chris Bean MD [address] [place] [address] [address] [place] [address] Phone: tel: fax: [address] [address] Referral ID Status Reason Start Date Expiration Date Visits Re quested Visits Authorized [id number] Closed 02/20/2024 04/19/2024 1 1 ME POLISHER Reason for Visit * MRI/CAT/PET Scan (Routine) - Closed Specialty Diagnoses / Procedures Referred By Sarahac thalia Referred To Contact Radiology Diagnoses Thoracic radiculopathy Procedures MRI Thoracic Spine WO Contrast Chris Bean MD [address] [place] [address] [address] [place] [address] Phone: tel: fax: [address] [place] [address] Referral ID Status Reason Start Date Expiration Date Visits Re quested Visits Authorized [id number] Closed 02/20/2024 04/19/2024 1 1 Encounter Details Date Type Department Care Team (Latest Contact Info) Description 03/05/2024 6:16 AM CHROME POLISHER - 03/05/2024 11:59 PM CHROME POLISHER Hospital Encounter [facility] [address] [place] [address] Thoracic radiculopathy Discharge Disposition: Discharge to home [...] Read Routine (OP Routine) 03/05/2024 7:12 AM CHROME POLISHER Thoracic radiculopathy documented in this encounter Results * MRI Thoracic Spine WO Contrast (03/05/2024 7:12 AM CHROME POLISHER) Anatomical Region Laterality Modality Spine N/A Magnetic Resonan ce 03/05/2024 8:43 AM CHROME POLISHER Narrative 03/05/2024 9:54 AM CHROME POLISHER EXAM DESCRIPTION: ?? MRI THORACIC SPINE [...] AM T: ??03/05/2024 9:54 AM Report ID: [id number] Reading Location: ??[id number] Procedure Note Ravi Durham MD - 03/05/2024 [...] relevant portions of CT lumbar spine without ahfwlixa92/14/2022 relevant portions of MRI lumbar spine without [...] Ravi Durham M.D. MATTHEW: MATTHEW Report ID: [id number] Reading Location: [place] [address] Chris Bean MD IM MRI PROCEDURES Final Result documented in this encounter Visit Diagnoses Diagnosis Thoracic radiculopathy Thoracic or lumbosacral neuritis or radiculitis, unspecified documented in this encounter Care Teams Investigator Utility Bill Complaints Relationship Specialty Start Date End Date Chris Bean MD [address] [facility] [address] [place] [address] PCP - General Family Medicine 09/08/22 documented as of this encounter
--- OUTSIDE RECORDS SUMMARY | 2024-04-05 05:59 | XMS_ITS | Encounter Summary ---
Author Organization [facility] Healthcare Address [address] [place] [address] Care Team Providers Care Medical Biller Name Role Phone Chris Bean MD Primary Care Provider [phone] Reason for Referral * Diagnostic Imaging (Routine) - Closed Specialty Diagnoses / Procedures Referred By Ralph vásquez Referred To Contact Diagnoses Elevated liver enzymes Procedures US Liver Chris Bean MD [address] [place] [address] [address] [place] [address] Phone: tel: fax: [address] [phone] Referral ID Status Reason Start Date Expiration Date Visits Re quested Visits Authorized [id number] Closed 09/05/2023 10/04/2024 1 1 Reason for Visit * Diagnostic Imaging (Routine) - Closed Specialty Diagnoses / Procedures Referred By Ralph vásquez Referred To Contact Diagnoses Elevated liver enzymes Procedures US Liver Chris Bean MD [address] [place] [address] [address] [place] [address] Phone: tel: fax: [address] [address] Referral ID Status Reason Start Date Expiration Date Visits Re quested Visits Authorized [id number] Closed 09/05/2023 10/04/2024 1 1 Encounter Details Date Type Department Care Team (Latest Contact Info) Description 09/12/2023 8:40 AM CDT - 09/12/2023 11:59 PM CDT Hospital Encounter [facility] [address] [place] [address] Elevated liver enzymes Discharge Disposition: Discharge to [...] on the images provided by the performing rn clinical documentation. ??Antegrade flow within the visualized main portal vein. GALLBLADDER: ?? Normal in size and wall thickness. ??Possible small amount of dependent sludge versus artifact. ??No pericholecystic fluid. ??Negative sonographic Yip sign as per the performing rn clinical documentation. BILIARY: ?? There is no intrahepatic or [...] D: ??09/12/2023 2:31 PM T: Report ID: [id number] Reading Location: ??[id number] Procedure Note Osman Tinajero MD - 09/12/2023 [...] seen on the images provided bythe performing rn clinical documentation. Antegrade flow within the visualized main portal vein. GALLBLADDER: Normal in size and wall thickness. Possible small amountof dependent sludge versus artifact. No pericholecystic fluid. Negative sonographic Yip sign as per the performing rn clinical documentation. BILIARY: There is no intrahepatic or extrahepatic [...] Osman Tinajero M.D. AG T: Report ID: [id number] Reading Location: [place] [address] us Chris Bean MD IM US PROCEDURES Final Result documented in this encounter Visit Diagnoses Diagnosis Elevated liver enzymes Other nonspecific abnormal serum enzyme levels documented in this encounter Care Teams Medical Biller Relationship Specialty Start Date End Date Chris Bean MD [address] [facility] [address] [place] [address] PCP - General Family Medicine 09/08/22 documented as of this encounter
--- OUTSIDE RECORDS SUMMARY | 2024-04-05 05:59 | XMS_ITS | Encounter Summary ---
Author Organization [facility] Healthcare Address [address] [place] [address] Care Team Providers Care Regional Merchandising Manager Name Role Phone Chris Bean MD Primary Care Provider [phone] Reason for Visit * Reason Onset Date Comments chest pain 01/23/2024 Leg Swelling 01/23/2024 under influence 01/23/2024 Encounter Details Date Type Department Care Team (Late st Contact Info) Description 01/23/2024 Nurse Triage [facility] Medical Group Family Medicine at [address] [place] [address] Ashley Dale RN Social History Tobacco Use Types Packs/Day [...] encounter Miscellaneous Notes * Telephone Encounter - Zayra Grant RN - 01/24/2024 8:36 AM CDT Spoke with patient and she went to ER and discharged. Has virtual appt today. * Telephone Encounter - Ashley Dale RN - 01/23/2024 4:37 PM CDT fruit stuffer back from triage-pt is convinced that she did not need to speak with triage that she was already was triaged and has video appt tomorrow. I do see a conversation with office staff that pt wasscheduled for appt tomorrow-pt may be thinking that was triage. Triage tried to convince pt to speak with her. Pt seems scattered in thoughts.In speaking with bi (pt is trying to quan triage off of phone) she reports her bilateral legs are as big as tree trunks and she is having constant chest pressure/pain. Ongoing for 2 days. H/O cardiac disease-pt reports she had a bad episode a few years ago. Denies SOB. No fevers. Disposition is ED now. Pt reports she will call an ex spouse Ravi to go to [facility]. Triage offered to call ex sp for pt and she declined. Triage did call pt back to make sure pt reached out to ride. fruit stuffer back -she is saying marcello Rodrigues in the background. Asked if she is gong to ED and she states she just wants to wait it out and see how the night goes . Instructed ED again and she reports she will go. Pt seems loopy . Triage is also calling Ravi to assist. Spoke with Ravi he reports pt told him over the phone thather legs are swollen to the point that it feels like she has strings tied around toes , pt was contemplating going to ED and he told her she needed to go to ED. He reports she has someone in home with her that he assumed might help her to ED. Discussed with Ravi that I am going to try another attempt to pt's home and if she has not headed to ED -triage will call 911. Unsure if pt was intoxicated or using drugs-pt does not seem like she is following instructions of triage clearly. Triage is concerned. Ravi reports that they signed divorce papers today but a friend is with pt in home. He understands the concern. Called back to pt and NO answer in home. Triage is calling 911. Transferred to [place] 911-Spoke with Melvin Hernandez Number [phone] is sending officer for a wellness check. All contact information given-pt is at [address] [place] [address] [place] [address] . (Confirmed address with ex spouse) Call complete. Message routed for called Reason for Disposition [1] Chest pain (or angina ) comes and goes AND [2] is happening more often (increasing in frequency) or getting worse (increasing in severity) (Exception: Chest pains that last only a few seconds.) Chest pain [1] Caller is very confused AND [2] no other adult (e.g., friend or family member) available Protocols used: Chest Pifr-SYUDD-PA, Leg Swelling and Jhvul-MMALP-SI, Difficult Dyaf-VTYTZ-CZ * Telephone Encounter - Sharmin Carreno RN - 01/23/2024 4:07 PM CDT Regarding: Chest Pressure & Severe Leg Swelling ----- Message from Teresa Mcfadden sent at 01/23/2024 3:50 PM CDT ----- Symptom Based Call Chief Complaint(s): Chest Pressure & Severe Leg Swelling Duration: 2 days ago What type of symptom(s) is the patient experiencing? Red Flag. Is the patient concerned they are experiencing a medical emergency requiring an ambulance? No Additional Comments: Patient calling symptomatic with chest pressure and severe leg swelling. Pt also mentions she has concerns that she has abscessed tooth, CS will route over as HP due to red flag symptoms and pt is aware of the turnaround timeframe. Does message need to be routed? Yes-Action Needed documented in this encounter Plan of Treatment Not on file documented as of this encounter Visit Diagnoses Not on filedocumented in this encounter Care Teams Regional Merchandising Manager Relationship Specialty Start Date End Date Chris Bean MD [address] [facility] [address] [address] PCP - General Family Medicine 09/08/22 documented as of this encounter
--- OUTSIDE RECORDS SUMMARY | 2024-04-05 05:59 | XMS_ITS | Encounter Summary ---
Author Organization [facility] Healthcare Address [address] [place] [address] Care Team Providers Care Technician'S Helper Name Role Phone Chris Bean MD Primary Care Provider [phone] Reason for Visit * Reason Onset Date Comments Medical Question/Miscellaneous 01/23/2024 Encounter Details Date Type Department Care Team (Late st Contact Info) Description 01/23/2024 Telephone [facility] Medical Group Family Medicine at [address] [address] Chris Bean MD [address] [place] [address] Medical Question/Miscellaneous Social History Tobacco Use [...] on filedocumented in this encounter Care Teams Technician'S Helper Relationship Specialty Start Date End Date Chris Bean MD [address] [facility] [address] [address] PCP - General Family Medicine 09/08/22 documented as of this encounter
--- OUTSIDE RECORDS SUMMARY | 2024-04-05 05:59 | XMS_ITS | Encounter Summary ---
Author Organization [facility] Healthcare Address [address] [place] [address] Care Team Providers Care Outbound Sales Consultant Name Role Phone Chris Bean MD Primary Care Provider [phone] Reason for Visit * Reason Onset Date Comments FMLA 10/24/2023 Encounter Details Date Type Department Care Team (Late st Contact Info) Description 10/24/2023 Telephone [facility] Medical Group Family Medicine at [address] [address] Chris Bean MD [address] [place] [address] [facility] Social History Tobacco Use Types Packs/Day Years [...] FMLA Date Received: 10/23/2023 Date Paperwork Due: Mail/Fax/Slubber Runner: Patient has been informed that they will [...] on filedocumented in this encounter Care Teams Outbound Sales Consultant Relationship Specialty Start Date End Date Chris Bean MD [address] [facility] [address] [place] [address] PCP - General Family Medicine 09/08/22 documented as of this encounter
--- OUTSIDE RECORDS SUMMARY | 2024-04-05 05:59 | XMS_ITS | Encounter Summary ---
Author Organization [facility] Healthcare Address [address] [place] [address] Care Team Providers Care Solid Glass Rod Dowel Machine Operator Name Role Phone Chris Bean MD Primary Care Provider [phone] Reason for Referral * Diagnostic Imaging (Routine) - Closed Specialty Diagnoses / Procedures Referred By Contalexsander t Referred To Contact Diagnoses Elevated liver enzymes Procedures US Liver Chris Bean MD [address] [place] [address] [address] [place] [address] Phone: tel: fax: [address] [address] Referral ID Status Reason Start Date Expiration Date Visits Re quested Visits Authorized [id number] Closed 09/05/2023 10/04/2024 1 1 Reason for Visit * Reason Onset Date Comments Test Results 09/05/2023 Encounter Details Date Type Department Care Team (Late st Contact Info) Description 09/05/2023 Telephone [facility] Medical Group Family Medicine at [address] [place] [address] Chris Bean MD [address] [place] [address] [address] [place] [address] Test Results Social History Tobacco Use [...] Reduce Saturated/Trans/Cholesterol/omega-6 fat from diet. 4. Recommended [place]-3/Hughes-unsaturated(MUFA)/Poly-unsaturated(PUFA) Rich Diet: Flax Seeds, Walnuts, [place] Nuts, Mushrooms, See-weed/Sea Vegetables 5. Oil free lifestyle, if you have to, then prefer Extra [place] Cold Pressed [place] or Avocado Oil. documented in this encounter [...] AM CDT Performed at: ??01 - [facility] [address] ??[id number] Timber Harvester Operator: Zhao Pugh PhD, Phone: ??[phone] Chris Bean MD LAB BLOOD ORDERABLES Final Resul t Performing Organization Address [facility]/ZIP Co de Phone Number [facility] - 01 * Lipid panel (12/04/2023 [...] 3:35 AM CDT Performed at: ??01 - [facility] ??[id number] Timber Harvester Operator: Zhao Pugh PhD, Phone: ??[phone] Chris Bean MD LAB BLOOD ORDERABLES Final Resul t Performing Organization Address [facility] Co de Phone Number [facility] - 01 * US Liver (09/12/2023 [...] on the images provided by the performing clinical systems educator. ??Antegrade flow within the visualized main portal vein. GALLBLADDER: ?? Normal in size and wall thickness. ??Possible small amount of dependent sludge versus artifact. ??No pericholecystic fluid. ??Negative sonographic Yip sign as per the performing clinical systems educator. BILIARY: ?? There is no intrahepatic or [...] D: ??09/12/2023 2:31 PM T: Report ID: [id number] Reading Location: ??[id number] Procedure Note Osman Tinajero MD - 09/12/2023 [...] seen on the images provided bythe performing clinical systems educator. Antegrade flow within the visualized main portal vein. GALLBLADDER: Normal in size and wall thickness. Possible small amountof dependent sludge versus artifact. No pericholecystic fluid. Negative sonographic Yip sign as per the performing clinical systems educator. BILIARY: There is no intrahepatic or extrahepatic [...] Osman Tinajero M.D. AG T: Report ID: [id number] Reading Location: [id number] us Chris Bean MD IM US PROCEDURES Final Result documented in this encounter Visit Diagnoses Diagnosis Screening for lipoid disorders- Primary Red blood cell abnormality Other abnormality of red blood cells Elevated liver enzymes Other nonspecific abnormal serum enzyme levels Elevated liver enzymes Other nonspecific abnormal serum enzyme levels documented in this encounter Care Teams Solid Glass Rod Dowel Machine Operator Relationship Specialty Start Date End Date Chris Bean MD [address] [facility] [address] G[address] [place] [address] PCP - General Family Medicine 09/08/22 documented as of this encounter
--- OUTSIDE RECORDS SUMMARY | 2024-04-05 05:59 | XMS_ITS | Encounter Summary ---
Author Organization [facility] Healthcare Address [address] [place] [address] Care Team Providers Care Credit Card Control Clerk Name Role Phone Chris Bean MD Primary Care Provider [phone] Encounter Details Date Type Department Care Team (Late st Contact Info) Description 01/23/2024 Orders Only [facility] Health Information Management [address] [place] [address] Chris Bean MD [facility] [address] [place] [address] Social History Tobacco Use Types Packs/Day Years [...] on filedocumented in this encounter Care Teams Credit Card Control Clerk Relationship Specialty Start Date End Date Chris Bean MD [address] [facility] [address] [place] [address] PCP - General Family Medicine 09/08/22 documented as of this encounter
--- OUTSIDE RECORDS SUMMARY | 2024-04-05 05:59 | XMS_ITS | Clinical Summary ---
Author Organization [facility] Address [address] [place] [address] Care Team Providers Care Operating Room Manager Name Role Phone Haim Sifuentes MD Primary Care Provider [phone] Source Comments [facility] My1login,non-owned Affiliates and Associated Physician Practices is amultiple site organization consisting of ambulatory clinics and hospital sitesin [place], [place], [place] and [place]. This disclosure is being madepursuant to the Care Everywhere program and may not contain all information available regarding this patient. Last updated 18.[facility] My1login Social History Tobacco Use Types Packs/Day Years [...] age to complete this topic Care Teams Operating Room Manager Relationship Specialty Start Date End Date Haim Sifuentes MD [address] [place] [address] PCP - General 12/02/12
--- OUTSIDE RECORDS SUMMARY | 2024-04-05 05:59 | XMS_ITS | Encounter Summary ---
Author Organization [facility] Healthcare Address [address] [place] [address] Care Team Providers Care Continuous Miner Operator Name Role Phone Chris Bean MD Primary Care Provider [phone] Reason for Visit * Reason Onset Date Comments Symptom Based Call 06/21/2023 Encounter Details Date Type Department Care Team (Late st Contact Info) Description 06/21/2023 Telephone [facility] Medical Group Family Medicine at [address] [address] Chris Bean MD [address] [place] [address] Symptom Based Call Social History Tobacco Use Types Packs/Day Years [...] * Telephone Encounter - Natali Eagle - 06/21/2023 11:05 AM CST LM for patient to call office to set up an appt with Dr Bean RMATION TECHNOLOGY DIRECTOR * Telephone Encounter - Viky Crain RN - 06/21/2023 11:02 AM INFORMATION TECHNOLOGY DIRECTOR Bring in to see Dr. Bean RMATION TECHNOLOGY DIRECTOR * Telephone Encounter - Zayra Georges - 06/21/2023 10:46 AM CST Symptom Based Call Chief Complaint(s): difficulty swallowing, facial Duration: a couple days What type of symptom(s) is the patient experiencing? Non-Emergent. Is this a new or reoccurring symptom(s)? reoccurring What have you tried to help your symptom(s)? tablets Why was appointment not scheduled? Requesting advice from clinical environmental field team member. Additional Comments: Patient states she has developed Thrush. She did not want to make an appointment she prefers if provider can call in oral medication for her to her pharmacy. Does message need to be routed? Yes-Action Needed RMATION TECHNOLOGY DIRECTOR documented in this encounter Plan of Treatment Not on file documented as of this encounter Visit Diagnoses Not on filedocumented in this encounter Care Teams Continuous Miner Operator Relationship Specialty Start Date End Date Chris Bean MD [address] [facility] [place] [address] PCP - General Family Medicine 09/08/22 documented as of this encounter
--- OUTSIDE RECORDS SUMMARY | 2024-04-05 05:59 | XMS_ITS | Referral Summary ---
Author Organization [facility] Address [address] [facility] [place] [address] Care Team Providers Care Coffee Shop Aide Name Role Phone Haim Sifuentes MD Primary Care Provider [phone] Source Comments [facility],non-owned Affiliates and Associated Physician Practices is amultiple site organization consisting of ambulatory clinics and hospital sitesin [place], [place] and [place]. This disclosure is being madepursuant to the Care Everywhere program and may not contain all information available regarding this patient. Last updated 18.[facility] Social History Tobacco Use Types Packs/Day Years Used Date Smoking Tobacco: Never Assessed Sex and Gender Information Value Date Recorded Sex Assigned at Not on file Gender Identity Not on file Sexual Orientation Not on file Plan of Treatment Not on file Care Teams Coffee Shop Aide Relationship Specialty Start Date End Date Haim Sifuentes MD [address] [facility] [address] [facility] [address] [place] [address] PCP - General 12/02/12
--- OUTSIDE RECORDS SUMMARY | 2024-04-05 05:59 | XMS_ITS | Encounter Summary ---
Author Organization [facility] Healthcare Address [address] [place] [address] Care Team Providers Care Darkroom Technician Name Role Phone Chris Bena MD Primary Care Provider [phone] Reason for Referral * MRI/CAT/PET Scan (Routine) - Closed Specialty Diagnoses / Procedures Referred By Contac t Referred To Contact Radiology Diagnoses Thoracic radiculopathy Procedures MRI Thoracic Spine WO Contrast Chris Bean MD [address] [place] [address] Phone: tel: fax: [address] [address] Referral ID Status Reason Start Date Expiration Date Visits Re quested Visits Authorized [id number] Closed 02/20/2024 04/19/2024 1 1 Reason for Visit * Reason Comments Back Pain Takes flexeril and h as neuropathy Went to detox to get off hydrocodone back in March and does not want to get back on narcotics Encounter Details Date Type Department Care Team (Late st Contact Info) Description 01/14/2024 1:15 PM CDT Telemedicine [facility] Medical Group Family Medicine at [address] [place] [address] Chris Bean MD [address] [facility] [address] [place] [address] Chronic bilateral low back pain without sciatica [...] Diastolic heart failure, NYHA class 1 (CMS/HCC) ([facility]) Hypertension Intervertebral disc disorder with radiculopathy of [...] patient was located at home in the [facility]. The patient visit started at 135Pm and [...] Thoracic Spine WO Contrast (03/05/2024 7:12 AM CREATIVE DESIGNER) Anatomical Region Laterality Modality Spine N/A Magnetic Resonan ce 03/05/2024 8:43 AM CREATIVE DESIGNER Narrative 03/05/2024 9:54 AM CREATIVE DESIGNER EXAM DESCRIPTION: ?? MRI THORACIC SPINE WO [...] AM T: ??03/05/2024 9:54 AM Report ID: [id number] Reading Location: ??[id number] Procedure Note Ravi Durham MD - 03/05/2024 [...] relevant portions of CT lumbar spine without hhvsoalp63/14/2022 relevant portions of MRI lumbar spine without [...] Ravi Durham M.D. MATTHEW: MATTHEW Report ID: [id number] Reading Location: [place] [address] Chris Bean MD IM MRI PROCEDURES Final Result documented in this encounter Visit Diagnoses Diagnosis Chronic bilateral low back pain without sciatica- Primary Thoracic radiculopathy Thoracic or lumbosacral neuritis or radiculitis, unspecified Thoracic radiculopathy Thoracic or lumbosacral neuritis or radiculitis, unspecified documented in this encounter Care Teams Darkroom Technician Relationship Specialty Start Date End Date Chris Bean MD [address] [facility] [address] [place] [address] PCP - General Family Medicine 09/08/22 documented as of this encounter
--- OUTSIDE RECORDS SUMMARY | 2024-04-05 05:59 | XMS_ITS | Clinical Summary ---
Author Organization [facility] Address [address] [place] [address] Phone Care Team Providers Care Director Of Critical Care Name Role Phone Unavailable Primary Care Provider Unavailabl e Social History Tobacco Use Types Packs/Day Years Used Date Smoking Tobacco: Never Assessed Comments Unknown Sex and Gender Information Value Date Recorded Sex Assigned at Not on file Legal Sex Unknown 03/19/2023 2:28 PM BUSINESS SUPPORT Gender Identity Not on file Sexual Orientation Not on file Plan of Treatment Not on file Insurance [facility]
--- OUTSIDE RECORDS SUMMARY | 2024-04-05 05:59 | XMS_ITS | Patient Health Summary ---
Author Organization [facility] Address [address] [facility] [place] [address] Care Team Providers Care Apparatus Repair Mechanic Name Role Phone Haim Sifuentes MD Primary Care Provider [phone] Note from [facility],non-owned Affiliates and Associated Physician Practices is amultiple site organization consisting of ambulatory clinics and hospital sitesin [place], [place], [place] and [place]. This disclosure is being madepursuant to the Care Everywhere program and may not contain all information available regarding this patient. Last updated 18.[facility] Social History Tobacco Use Types Packs/Day Years Used Date Smoking Tobacco: Never Assessed Sex and Gender Information Value Date Recorded Sex Assigned at Not on file Gender Identity Not on file Sexual Orientation Not on file Procedures * CULTURE STREP GROUP A(Performed 03/17/2014) Results * CULTURE STREP GROUP A (03/17/2014 3:50 PM SOLAR ELECTRIC PRACTITIONER) Culture Beta Strep No Growth of Groups A, C or G Beta Streptococc us. [facility] Throat swab (specimen) ENTIRE THROAT (SURFACE REGION OF NECK) / Unknown 03/17/2014 3:50 PM SOLAR ELECTRIC PRACTITIONER 03/17/2014 9:33 PM SOLAR ELECTRIC PRACTITIONER Narrative [facility] - 03/19/2014 11:07 AM SOLAR ELECTRIC PRACTITIONER AndersonSpecimen#[id number] Genaro Loc/Rm/Bed: EXPCARE G// Historical Provider LAB - MICROBIOLOG Y ORDERABLES [id number] [place] [address] Care Teams Apparatus Repair Mechanic Relationship Specialty Start Date End Date Haim Sifuentes MD [address] [facility] [address] [place] [address] PCP - General 12/02/12
--- OUTSIDE RECORDS SUMMARY | 2024-04-05 05:59 | XMS_ITS | Encounter Summary ---
Author Organization [facility] Healthcare Address [address] [place] [address] Care Team Providers Care Patient Liaison Name Role Phone Chris Bean MD Primary Care Provider [phone] Encounter Details Date Type Department Care Team (Late st Contact Info) Description 06/13/2023 [facility] Outreach [facility] Warm Hand Off Program [address] [place], [place] [phone] Gaby Hugo Social History Tobacco Use Types [...] f/u to previous Warm Handoff enrollment at [facility]. # Disconnected at this time & unable to LM. Per chart review, Pt has been staying in contact with outpatient providers and has communicated her desire for continuous recovery. Please encourage Pt to f/u w/WHO if in need of [facility]EN[facility] resources/care coordination in the future. SPECIALIST documented in this encounter Plan of Treatment Not on file documented as of this encounter Visit Diagnoses Not on filedocumented in this encounter Care Teams Patient Liaison Relationship Specialty Start Date End Date Chris Bean MD [address] [facility] [address] [place] [address] PCP - General Family Medicine 09/08/22 documented as of this encounter
--- OUTSIDE RECORDS SUMMARY | 2024-04-05 05:59 | XMS_ITS | Encounter Summary ---
Author Organization [facility] Healthcare Address [address] [place] [address] Care Team Providers Care Green Chain Operator Name Role Phone Eloy Leonard MD Primary Care Provider [phone] Reason for Referral * Diagnostic Imaging (Routine) - Closed Specialty Diagnoses / Procedures Referred By Ralph vásquez Referred To Contact Diagnoses Screening mammogram, encounter for Procedures SCREENING MAMMOGRAM BILATERAL W Eloy Adam MD [address] [place] [address] [address] [place] [address] Phone: tel: fax: [address] [address] Referral ID Status Reason Start Date Expiration Date Visits Re quested Visits Authorized [id number] Closed 12/25/2023 01/23/2025 1 1 Reason for Visit * Reason Comments adult wellness physical Encounter Details Date Type Department Care Team (Late st Contact Info) Description 12/25/2023 10:15 AM CDT Office Visit [facility] Medical Group Family Medicine at [address] [address] Eloy Leonard MD [address] [place] [address] DR [address] [place] [address] Encounter for annual health examination (Primary [...] documented as of this encounter Care Teams Green Chain Operator Relationship Specialty Start Date End Date Eloy Leonard MD [address] [facility] [address] [place] [address] PCP - General Family Medicine 09/08/22 documented as of this encounter
--- OUTSIDE RECORDS SUMMARY | 2024-04-05 05:59 | XMS_ITS | Encounter Summary ---
Author Organization [facility] Healthcare Address [address] [place] [address] Care Team Providers Care Vice President Medical Affairs Name Role Phone Chris Bean MD Primary Care Provider [phone] Reason for Visit * Reason Onset Date Comments overdue results 05/16/2023 Encounter Details Date Type Department Care Team (Late st Contact Info) Description 05/16/2023 Telephone [facility] Family Medicine at [address] [address] Chris Bena MD [address] [place] [address] overdue results Social History Tobacco Use [...] 4:53 PM CST Letter was sent through [employer] re: overdue blood work at [facility] ATIENT COORDINATOR documented in this encounter Plan of Treatment Not on file documented as of this encounter Visit Diagnoses Not on filedocumented in this encounter Care Teams Vice President Medical Affairs Relationship Specialty Start Date End Date Chris Bean MD [address] [facility] [address] [place] [address] [place] [address] PCP - General Family Medicine 09/08/22 documented as of this encounter
--- OUTSIDE RECORDS SUMMARY | 2024-04-05 05:59 | XMS_ITS | Encounter Summary ---
Author Organization [facility] Healthcare Address [address] [place] [address] Care Team Providers Care Washhouse Hand Name Role Phone Eloy Leonard MD Primary Care Provider [phone] Reason for Visit * Reason Comments Follow-up Request for letterDi scuss anxiety med and something for back pain Encounter Details Date Type Department Care Team (Late st Contact Info) Description 09/20/2023 10:00 AM CDT Office Visit [facility] Medical [facility] Family Medicine at [address] [place] [address] Eloy Leonard MD [address] [place] [phone] Generalized anxiety disorder; Migraine without aura and [...] surgery. Recently been for Hydrocodone withdrawal at [facility]. On [place]. Patient follows Pain mgmt at [place]. Interventional Pain Shoe Shiner. 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
--- OUTSIDE RECORDS SUMMARY | 2024-04-05 05:59 | XMS_ITS | Referral Summary ---
Author Organization [facility] Address [address] [place] [address] Care Team Providers Care Web Development Manager Name Role Phone Chris Bean MD Primary Care Provider [phone] Encounters Date Type Department Care Team Description 04/03/2024 Telephone [facility] Medical [facility] Family Medicine at [address] [place] [address] Chris Bean MD Medical Question/Miscellaneou s 03/05/2024 6:16 AM ENVELOPE CUTTER - 03/05/2024 11:59 PM ENVELOPE CUTTER Hospital Encounter [address] [address] Thoracic radiculopathy Discharge Disposition: Discharge to home or self care 01/23/2024 Orders Only [facility] [address] [place] [address] Chris Bean MD 01/23/2024 Nurse Triage [facility] at [address] [place] [address] Ashley Dale RN 01/23/2024 Telephone [facility] Family Medicine at [address] [place] [address] Chris Bean MD Medical Question/Miscellaneou s 01/14/2024 1:15 PM CDT Telemedicine [facility] at [address] [place] [address] Chris Bean MD Chronic bilateral low back pain without sciatica (Primary Dx); Thoracic radiculopathy 01/11/2024 Nurse Triage [facility] at [address] [place] [address] Olivia Duran RN 01/11/2024 Telephone [facility] at [address] [place] [address] Chris Bean MD Medication Request [...] 05/16/2022 Assessment & Plan (05/16/2022 4:51 PM ENVELOPE CUTTER): Ms. Whitt has symptoms that are consistent [...] Read Routine (OP Routine) 03/05/2024 7:12 AM ENVELOPE CUTTER Thoracic radiculopathy SCAN - LABS 01/23/2024 SCAN - RADIOLOGY/IMAGING 01/23/2024 HM COLONOSCOPY Routine 11/13/2019 from Last 3 Months or Most Recently Relevant to Health Maintenance Results * MRI Thoracic Spine WO Contrast (03/05/2024 7:12 AM ENVELOPE CUTTER) Anatomical Region Laterality Modality Spine N/A Magnetic Resonan ce 03/05/2024 8:43 AM ENVELOPE CUTTER Narrative 03/05/2024 9:54 AM ENVELOPE CUTTER EXAM DESCRIPTION: ?? MRI THORACIC SPINE WO [...] AM T: ??03/05/2024 9:54 AM Report ID: [id number] Reading Location: ??[id number] Procedure Note Ravi Durham MD - 03/05/2024 [...] relevant portions of CT lumbar spine without pklcivha18/14/2022 relevant portions of MRI lumbar spine without [...] Ravi Durham M.D. MATTHEW: MATTHEW Report ID: [id number] Reading Location: [place] [address] Chris Bean MD IMG MRI PROCEDURES Final Result * SCAN - RADIOLOGY/IMAGING (01/23/2024) Anatomical Region Laterality Modality Other Chris Bean MD Final Result * SCAN - LABS (01/23/2024) Chris Bean MD Final Result * HM COLONOSCOPY (11/13/2019) Laquita Davis MD HEALTH MAINTENANCE Final Result from Last 3 Months or Most Recently Relevant to Health Maintenance Insurance CHOICE [facility] [place]PO [place] Member Subscriber Plan / Payer (Ef fective 2022-Present) Name:Gerardo Whitt Relation to Subscriber:Spouse Name:RAVI WHITT Date of :1970 (Home) Address: [address] [place] [address] Payer ID:[id number] (NAIC) Type:HEALTHCARE/EXCHANGE Address: [address] [place] Advance Directives For more information, please contact: [phone] * Full Code (Latest Code Status on File) Date Activated Date Inactivated Comments 03/23/2023 4:06 PM 03/27/2023 5:03 PM Care Teams Web Development Manager Relationship Specialty Start Date End Date Chris Bean MD [address] [facility] [address] [place] [address] [place] [phone] PCP - General Family Medicine 09/08/22
--- OUTSIDE RECORDS SUMMARY | 2024-04-05 05:59 | XMS_ITS | Encounter Summary ---
Author Organization [facility] Healthcare Address [address] [place] [address] Care Team Providers Care Food Service Substitute Name Role Phone Chris Bean MD Primary Care Provider [phone] Reason for Visit * Reason Onset Date Comments Medication Request 01/11/2024 Encounter Details Date Type Department Care Team (Late st Contact Info) Description 01/11/2024 Telephone [facility] Family Medicine at [address] [address] Chris Bean MD [address] [place] [address] Medication Request Social History Tobacco Use [...] documented as of this encounter Care Teams Food Service Substitute Relationship Specialty Start Date End Date Chris Bean MD [address] [facility] [address] [place] [address] [place] [address] PCP - General Family Medicine 09/08/22 documented as of this encounter
--- OUTSIDE RECORDS SUMMARY | 2024-04-05 05:59 | XMS_ITS | Encounter Summary ---
Author Organization [facility] Healthcare Address [address] [place] [address] Care Team Providers Care Data Management Consultant Name Role Phone Chris Bean MD Primary Care Provider [phone] Reason for Visit * Reason Onset Date Comments Mouth Lesions 01/11/2024 oral symptoms 01/11/2024 Encounter Details Date Type Department Care Team (Late st Contact Info) Description 01/11/2024 Nurse Triage [facility] Medical Group Family Medicine at [address] [place] [address] Olivia Duran, RN Social History [...] would prefer to have [facility] visit tonight. warehouse receiving supervisor recommends OV, NO appt avail so [facility] appt made for today. Pt aware to complete echeck in 30min early. Reason for Disposition Mouth is painful Large blisters in mouth (i.e., fluid filled bubbles or sacs) Protocols used: Mouth Tyhmnwvz-TWIOL-EU, Mouth Bgaj-NMHWY-RJ * Telephone Encounter - Rebecca Duke RN [...] appointment not scheduled? Requesting advice from clinical marketing team lead. Additional Comments: Patient stated that she is a smoker and wanted to know if she needed to be concerned? Does message need to be routed? Yes-Action Needed documented in this encounter Plan of Treatment Not on file documented as of this encounter Visit Diagnoses Not on filedocumented in this encounter Care Teams Data Management Consultant Relationship Specialty Start Date End Date Chris Bean MD [address] [facility] [address] [place] [address] [place] [phone] PCP - General Family Medicine 09/08/22 documented as of this encounter
--- OUTSIDE RECORDS SUMMARY | 2024-04-05 05:59 | XMS_ITS | Encounter Summary ---
Author Organization [facility] Healthcare Address [address] [place] [address] Care Team Providers Care Welder And Fitter Name Role Phone Chris Bean MD Primary Care Provider [phone] Reason for Visit * Reason Onset Date Comments Medical Question/Miscellaneous 10/02/2023 Encounter Details Date Type Department Care Team (Late st Contact Info) Description 10/02/2023 Telephone [facility] Family Medicine at [address] [address] Chris Bean MD [address] [place] [address] Medical Question/Miscellaneous Social History Tobacco Use [...] She need our fax number for 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 Please advise. Does message need to be routed? 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 Pt is requesting medical paperwork per her consumer attorney to proceed with divorce and disability case. [...] her work capability for disability and her consumer attorney. She said that she state she brought paperwork at herlast appointment to inform PCP of what she is needing. She would like a call back to further discusplease advise. Does message need to be routed? Yes-Action Needed documented in this encounter Plan of Treatment Not on file documented as of this encounter Visit Diagnoses Not on filedocumented in this encounter Care Teams Welder And Fitter Relationship Specialty Start Date End Date Chris Bean MD [address] [facility] [place] [address] PCP - General Family Medicine 09/08/22 documented as of this encounter
--- OUTSIDE RECORDS SUMMARY | 2024-04-05 05:59 | XMS_ITS | Encounter Summary ---
Author Organization [facility] Address [address] [facility] [place] [address] Care Team Providers Care Hemp Fiber Taker Off Name Role Phone Haim Siufentes MD Primary Care Provider [phone] Reason for Visit * Reason Onset Date Comments Referral 01/22/2019 Encounter Details Date Type Department Care Team (Late st Contact Info) Description 01/22/2019 Telephone [facility] - Orthopedics [facility] [place] [address] Yue [facility] Referral Social [...] on filedocumented in this encounter Care Teams Hemp Fiber Taker Off Relationship Specialty Start Date End Date Haim Sifuentes MD [address] [facility] [address] [place] [phone] PCP - General 12/02/12 documented as of this encounter
--- OUTSIDE RECORDS SUMMARY | 2024-04-05 05:59 | XMS_ITS | Encounter Summary ---
Author Organization [facility] Healthcare Address [address] [place] [address] Care Team Providers Care Barn Manager Name Role Phone Chris Bean MD Primary Care Provider [phone] Reason for Visit * Reason Onset Date Comments Test Results 09/20/2023 Encounter Details Date Type Department Care Team (Late st Contact Info) Description 09/20/2023 Telephone [facility] Medical Group Family Medicine at [address] [address] Chris Bean MD [address] [place] [address] Test Results Social History Tobacco Use [...] confirming scripts were sent to pharmacy 09/20/23; GUM SCORING MACHINE OPERATOR confirmed scripts were sent per Meds Tab, GUM SCORING MACHINE OPERATOR then noticed [facility] left VM for patient regarding results. GUM SCORING MACHINE OPERATOR warm transferred patient per Kimberlyn's instruction Does message need to be routed? No * Telephone Encounter - Kimberlyn Wilde RN - 09/20/2023 1:56 PM CDT Called and left voicemail for patient warm transfer to [facility] * Telephone Encounter - Angelica Lombardi - 09/20/2023 1:24 PM CDT Test Result Request Type of test: US Liver + recent lab results Date of test: labs 5/21, US 09/11 Where was the test performed at?[facility] Did provider dictate result yet? Yes Where were results relayed from in the chart? Labs Tab + Imaging Tab Additional Questions/Comments: Patient stated she forgot to inquire about results during her OV today. GUM SCORING MACHINE OPERATOR read result note, but patient has further questions. Does message need to be routed? Yes-Action Needed documented in this encounter Plan of Treatment Not on file documented as of this encounter Visit Diagnoses Not on filedocumented in this encounter Care Teams Barn Manager Relationship Specialty Start Date End Date Chris Bean MD [address] [facility] [address] [place] [address] [place] [address] PCP - General Family Medicine 09/08/22 documented as of this encounter
--- OUTSIDE RECORDS SUMMARY | 2024-04-05 06:00 | XMS_ITS | Encounter Summary ---
Author Organization [facility] Medical Group Address [address] [facility] [address] [place] [address] Care Team Providers Care Aircraft Cabin Cleaner Name Role Phone Unavailable Primary Care Provider Unavailabl e Encounter Details Date Type Department Care Team (Late st Contact Info) Description 08/22/2022 Telephone [facility] [address] [facility] [address] [place] [address] Gena Paz, HOOK AND EYE SEWING MACHINE OPERATOR [address] [facility] [address] [place] [address] Social History Tobacco Use Types Packs/Day Years [...]
--- OUTSIDE RECORDS SUMMARY | 2024-04-05 06:00 | XMS_ITS | Encounter Summary ---
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] Procedures [place] LAMOT PRTL FFD EXC DISC REEXPL 1 [facility] LUMBAR Re-exploration Right L5-S1 Decompression Laminectomy Referral ID Status Reason Start Date Expiration Date Visits Re quested Visits Authorized [id number] 1 1 Encounter Details Date Type Department Care Team (Late st Contact Info) Description 08/03/2022 7:24 AM CDT Anesthesia Event [facility] Operating Room [address] [place] [phone] John Sainz DO [address] [place] [address] Anesthesia Record Procedure Summary Procedure Name Responsible [...] ck; lumbar; 03/18/24 (Retired LDA, Removed/Completed by Audaster with LDA Utility); 1213 (Retired LDA, Removed/Completed by Audaster with LDA Utility) 08/03/22 0824 by Lucio [...] Procedure Summary Date: 08/03/22 Room / Location: [facility] / [facility] OPERATING RO[facility] Anesthesia Start: 723 Anesthesia Stop: [...] anesthesia Difficult airway: no Staff: Placed by: THRILL PERFORMER: Alfredo Prather CRNA Emergent airway documentation: Risks [...] stage I -impaired relaxation LVEF: 50-60%. Comments: Sliver Machine Operator is Dr. Garibay 11-15-2019 echocardiogram- LV chamber [...] Diastolic heart failure, NYHA class 1 (CMS/HCC) ([facility]) ??? Hypertension ??? Intervertebral disc disorder with [...] Medication protocol when under care of a THRILL PERFORMER Planned anesthesia: General Team communication plan: oral ET tube Induction: Induction: intravenous. Postoperative Plan: No postoperative mechanical ventilation intended. Patient's planned disposition post procedure is Outpatient. Informed Consent: Discussed plan with THRILL PERFORMER. Anesthesia plan and risks discussed with patient. [...] Procedure Name Priority Date/Time Associated Diagnosis Comments [place] AN PROCEDURE PLACEHOLDER Routine 08/03/2022 8:09 AM CDT MO AN ELECTIVE ENDOTRACHEAL AIRWAY Routine 08/03/2022 8:09 AM CDT documented in this encounter Results * MO AN ELECTIVE ENDOTRACHEAL AIRWAY, MO AN PROCEDURE PLACEHOLDER (08/03/2022 8:09 AM CDT) Narrative Alfredo Prather CRNA - 08/03/2022 8:09 AM CDT Alfredo Prather CRNA ? 08/03/2022 ??8:10 AM Airway Patient location: OR Urgency: elective Indications for airway management: anesthesia Difficult airway: no Staff: Placed by: THRILL PERFORMER: Alfredo Prather CRNA Emergent airway documentation: Risks [...] infusion (premix) 1.5 mg/kg/hr ? 50.1 kg Bernie weight (9.3938 mL/hr, rounded to 9.39 mL/hr), [...]
--- OUTSIDE RECORDS SUMMARY | 2024-04-05 06:00 | XMS_ITS | Encounter Summary ---
Author Organization [facility] Address [address] [facility] [address] [place] [address] Care Team Providers Care Engraver Rubber Name Role Phone Chris Bean MD Primary Care Provider [phone] Reason for Visit * Reason Onset Date Comments Appointment Request 09/19/2022 Encounter Details Date Type Department Care Team (Late st Contact Info) Description 09/19/2022 Telephone [facility] Family Medicine at [address] [place] [address] Chris Bean MD [address] [place] [address] [address] [place] [address] Appointment Request Social History Tobacco [...] transferred to backline. Caller???s Call back #: [phone] Does message need to be routed? No documented in this encounter Plan of Treatment Not on file documented as of this encounter Visit Diagnoses Not on filedocumented in this encounter Care Teams Engraver Rubber Relationship Specialty Start Date End Date Chris Bean MD [address] [facility] [address] [place] [place] [address] PCP - General Family Medicine 09/08/22 documented as of this encounter
--- OUTSIDE RECORDS SUMMARY | 2024-04-05 06:00 | XMS_ITS | Encounter Summary ---
Author Organization [facility] Healthcare Address [address] [place] [address] Care Team Providers Care Title Curative Specialist Name Role Phone Chris Bean MD Primary Care Provider [phone] Reason for Visit * Auth/Cert (Routine) Specialty Diagnoses / Procedures Referred By Contac t Referred To Contact Diagnoses Opioid dependence, uncomplicated Alcohol withdrawal syndrome without complication (HCC) F11.20 Procedures na Referral ID Status Reason Start Date Expiration Date Visits Re quested Visits Authorized [id number] 1 1 Encounter Details Date Type Department Care Team (Latest Contact Info) Description 03/23/2023 1:06 PM BPM ANALYST - 03/27/2023 12:58 PM [facility] Hospital Encounter [facility] Medical Care [address] [place] [address] Judie Jackson MD [address] [place] [address] [place] [address] Dariana Noe MD [address] [place] [address] [place] [address] Ellyn Barber MD [address] [place] [address] [place] [address] Esperanza Conway MD [address] [place] [address] [place] [address] Abelardo Bean MD [address] [place] [address] Xochitl Mckoy MD [address] [place] [address] Alcohol abuse (Primary Dx) Discharge Disposition: Discharge [...] Comments Blood Pressure 94/71 03/27/2023 11:14 AM BPM ANALYST Pulse 118 03/27/2023 11:14 AM BPM ANALYST Temperature 36 ??C (96.8 ??F) 03/27/2023 11:14 AM BPM ANALYST Respiratory Rate 16 03/27/2023 11:14 AM BPM ANALYST Oxygen Saturation 100% 03/27/2023 11:14 AM BPM ANALYST Inhaled Oxygen Concentration - - Weight 60 kg (132 lb 3.2 oz) 03/23/2023 2:06 PM BPM ANALYST Height 154.9 cm (5' 1 ) 03/23/2023 2:06 PM BPM ANALYST Body Mass Index 24.98 03/23/2023 2:06 PM BPM ANALYST documented in this encounter Discharge Summaries * Xochitl Mckoy MD - 03/27/2023 10:21 AM CST Inpatient Discharge Summary BRIEF OVERVIEW Admitting Provider: Dariana Noe MD Discharge Provider: Xochitl Mckoy MD Primary Care Physician at Discharge: Chris Bean MD [phone] Admission Date: 03/23/2023 Discharge Date: 03/27/2023 Admission Location: [facility] Problems/Diagnoses: Principal Problem: Alcohol abuse Active [...] hand nydia. Patent plans to engage with [facility] for OP services. She was instructed that [...] Discharge: General: NAD, conversant Lungs CTA Heart: [id number], no significant murmur or gallop Abd: +BS, [...] time spent in any separately reportable services. ANALYST ANALYST documented in this encounter Discharge Instructions * Discharge Instructions* Brenna Mardigal RN - 03/27/2023 11:00 AM BPM ANALYST Follow up with Luis as discussed with warm handoff If you have any questions or concerns after discharge, please call [facility] at [phone]. ANALYST documented in this encounter Medications at Time [...] Equipment-Currently Using None Prior Function Level of [place] Independent with ADLs;Independent functional transfers;Independent with ambulation Lives With Spouse Receives Help From Family Driving Yes Fall within the last 6 months Yes Fall within the last 6 months comment Pt. reports at least 5-6 falls, legs giving out or tripping on something, no injuries reported Prior Function Comments Pt. reports being independent with ADLs and functional mobility RN DERMATOLOGY, she reports her helps her manage medications [...] increase safety with ADLs and functional mobility ANALYST * Abelardo Bean MD - 03/26/2023 7:46 [...] tongue midline, mucosa moist Lungs CTA Heart: [id number], no significant murmur or gallop Abd: +BS, [...] tablet 2 mg 2 mg sublingual Q8H [facility] Abelardo Bean MD diclofenac sodium (VOLTAREN) 1 [...] MD 25 mg at 03/25/23 0930 multivit rchtzciy-pxvm-SX-calcium (THERA-M) tablet 1 tablet 1 tablet oral [...] 03/26/23 0934 A/P: Alcohol dependence/withdrawal Monitor per [facility] protocol. Daily folic acid, thiamine, [...] No resolved hospital problems. Voice recognition software [employer] Direct was used dictate and transcribe this document. Fire Control Mechanic variances may occur. Despite proofreading, typographical errors may occur. Abelardo Bean MD 03/26/2023 11:03 AM ANALYST * Abelardo Bean MD - 03/25/2023 7:48 [...] tongue midline, mucosa moist Lungs CTA Heart: [id number], no significant murmur or gallop Abd: +BS, [...] Barber MD 25 mg at 03/25/23929 multivit pycennko-vqgt-GQ-calcium (THERA-M) tablet 1 tablet 1 tablet oral [...] at 03/25/23930 A/P: Alcohol dependence/withdrawal Monitor per [facility] protocol. Daily folic acid, thiamine, [...] No resolved hospital problems. Voice recognition software [employer] Direct was used dictate and transcribe this document. Fire Control Mechanic variances may occur. Despite proofreading, typographical errors may occur. Abelardo Bean MD 03/25/2023 11:20 AM ANALYST * Esperanza Conway MD - 03/24/2023 5:50 [...] tongue midline, mucosa moist Lungs CTA Heart: [id number], no significant murmur or gallop Abd: +BS, [...] MD 25 mg at 03/24/23 1006 multivit mhdrevvg-jfad-EH-calcium (THERA-M) tablet 1 tablet 1 tablet oral [...] 03/24/23 1006 A/P: Alcohol dependence/withdrawal Monitor per [facility] protocol. Daily folic acid, thiamine, [...] No resolved hospital problems. Voice recognition software [employer] Flu[employer] Direct was used dictate and transcribe this document. Fire Control Mechanic variances may occur. Despite proofreading, typographical errors may occur. Esperanza Conway MD 03/24/2023 5:50 PM ANALYST documented in this encounter H&P Notes * [...] heart failure, NYHA class 1 (CMS/HCC) ([facility]) Hypertension Intervertebral disc disorder with radiculopathy [...] capsule 50 mg 50 mg oral Q8H Darinaa Noe MD Followed by [START ON 03/25/2023] [...] mg oral Daily Ellyn Barber MD multivit fqetttnz-crgo-OX-calcium (THERA-M) tablet 1 tablet 1 tablet oral [...] Intake/Output Summary (Last 24 hours) at 03/23/2023 0009 Last data filed at 03/23/2023 1700 Gross [...] 120 mg/dL A/P Alcohol dependence. Monitor per [facility] protocol. Daily folic acid, thiamine, [...] any separately reportable services. Voice recognition software [employer] Direct was used dictate and transcribe this document. Fire Control Mechanic variances may occur. Despite proofreading, typographical errors may occur. Ellyn Barber MD ANALYST documented in this encounter Nursing Notes * Tala Ponce RN - 03/27/2023 12:58 PM CST Patient discharged to home via private vehicle accompanied by friend. Discharge instructions reviewed with patient and/or route service representative. [place] pharmacy medications and/or prescriptions provided. Belongings/home medications returned. ANALYST * Peyton Harvey RN - 03/26/2023 12:00 AM CST PCT reported that she helped patient to bathroom at apprx [phone]. Pt gait very unsteady, pt thought she was at home, stated she was having back pain. At 0000, this RN checked on patient. Pt was sleeping in bed, bed alarm on. ANALYST documented in this encounter Miscellaneous Notes * [...] Pt calls out appropriately. Pt resting comfortably. ANALYST * Plan of Care - Katie Arias [...] interventions and treatments as documented in flowsheets. ANALYST * Plan of Care - Peyton Harvey [...] appears to be less. No seizure activity. ANALYST * Plan of Care - Leatha Correa [...] Ravi in to see patient this shift. ANALYST * Plan of Care - Peyton Harvey [...] directed to bed and alarm turned on. ANALYST ANALYST * Plan of Maureen - Ynes Vogel [...] will improve Description: (Low Risk) Outcome: Progressing ANALYST * Plan of Maureen - Lotus Leon RN - 03/24/2023 6:38 AM BPM ANALYST Goals: Clinical Goals for the Shift: safety; [...] will improve Description: (Low Risk) Outcome: Ongoing ANALYST * Plan of Tala Doss RN - [...] in bed with call light within reach. ANALYST documented in this encounter Plan of Treatment Not on file documented as of this encounter Procedures Procedure Name Priority Date/Time Associated Diagnosis Comments HEPATIC FUNCTION PANEL Routine 03/27/2023 3:12 AM BPM ANALYST HEPATIC FUNCTION PANEL Routine 03/26/2023 4:48 AM BPM ANALYST HEPATIC FUNCTION PANEL Routine 03/25/2023 4:52 AM BPM ANALYST EGFR Routine 03/24/2023 4:10 AM BPM ANALYST DIFFERENTIAL AUTO Routine 03/24/2023 4:1 0 AM BPM ANALYST CBC WITH AUTO DIFFERENTIAL Routine 03/24/2023 4:10 AM BPM ANALYST PHOSPHORUS Routine 03/24/2023 4:10 AM BPM ANALYST MAGNESIUM Routine 03/24/2023 4:10 AM BPM ANALYST HEPATIC FUNCTION PANEL Routine 03/24/2023 4:10 AM BPM ANALYST BASIC METABOLIC PANEL Routine 03/24/2023 4:10 AM BPM ANALYST DRUGS OF ABUSE SCREEN, URINE WITHOUT CONFIRMATION STAT 03/23/2023 6:53 PM BPM ANALYST APTT STAT 03/23/2023 4:31 PM BPM ANALYST PROTIME-INR STAT 03/23/2023 4:31 PM BPM ANALYST ETHANOL STAT 03/23/2023 4:31 PM BPM ANALYST documented in this encounter Results * (ABNORMAL) Hepatic function panel (03/27/2023 3:12 AM BPM ANALYST) Bilirubin, total <0.2 0.1 - 1.2 mg/dL [...] [facility] Blood 03/27/2023 3:12 AM BPM ANALYST 03/27/2023 4:08 AM BPM ANALYST us Ellyn Barber MD LAB BLOOD ORDERABLES Fin al Result [facility] ([place]) 1 [facility] Department [place] [address] * (ABNORMAL) Hepatic function panel (03/26/2023 4:48 AM BPM ANALYST) Bilirubin, total <0.2 0.1 - 1.2 mg/dL [...] [facility] Blood 03/26/2023 4:48 AM BPM ANALYST 03/26/2023 6:08 AM BPM ANALYST Ellyn Barber MD LAB BLOOD ORDERABLES Fin al Result [facility] ([place] 1 [facility] [employer] [place], [place] [id number] * (ABNORMAL) Hepatic function panel (03/25/2023 4:52 AM BPM ANALYST) Bilirubin, total <0.2 0.1 - 1.2 mg/dL [...] [facility] Blood 03/25/2023 4:52 AM BPM ANALYST 03/25/2023 6:03 AM BPM ANALYST us Ellyn Barber MD LAB BLOOD ORDERABLES Fin al Result [facility] ([place]) 1 [facility] [employer] [place], [place] [id number] * eGFR (03/24/2023 4:10 AM BPM ANALYST) eGFR 110 mL/min/1. 73 m2 [facility] [...] last reviewed 2021. Blood 03/24/2023 4:10 AM BPM ANALYST 03/24/2023 5:18 AM BPM ANALYST us Ellyn Barber MD LAB BLOOD ORDERABLES Fin al Result [facility] 1 [facility] Department of Laboratories [place], [place] [id number] * (ABNORMAL) Differential, auto (03/24/2023 4:10 AM BPM ANALYST) Neutrophil abs 1.3(L) 1.5 - 6.5 K/cumm [...] revised on 2017. Blood 03/24/2023 4:10 AM BPM ANALYST 03/24/2023 5:15 AM BPM ANALYST us Ellyn Barber MD LAB BLOOD ORDERABLES Fin al Result [facility] ([place]) 1 [facility] Department [place] [address] * (ABNORMAL) Hepatic function panel (03/24/2023 4:10 AM BPM ANALYST) Bilirubin, total 0.4 0.1 - 1.2 mg/dL [...] [facility] Blood 03/24/2023 4:10 AM BPM ANALYST 03/24/2023 5:18 AM BPM ANALYST Ellyn Barber MD LAB BLOOD ORDERABLES Fin al Result [facility] ([place] 1 [facility] [place] [address] * Phosphorus (03/24/2023 4:10 AM BPM ANALYST) Phosphorus, pl 3.4 2.3 - 4.5 mg/dL [facility]) Blood 03/24/2023 4:10 AM BPM ANALYST 03/24/2023 5:18 AM BPM ANALYST Ellyn Barber MD LAB BLOOD ORDERABLES Fin al Result [facility] 1 [facility] [place] [address] * Magnesium (03/24/2023 4:10 AM BPM ANALYST) Magnesium 1.8 1.4 - 2.5 mg/dL [facility] Blood 03/24/2023 4:10 AM BPM ANALYST 03/24/2023 5:18 AM BPM ANALYST us Ellyn Barber MD LAB BLOOD ORDERABLES Fin al Result [facility] ([place] 1 [facility] Department [place] [address] * (ABNORMAL) CBC with auto differential (03/24/2023 4:10 AM BPM ANALYST) WBC 3.3(L) 3.8 - 9.9 K/cumm [facility] [...] [facility] Blood 03/24/2023 4:10 AM BPM ANALYST 03/24/2023 5:15 AM BPM ANALYST Ellyn Barber MD LAB BLOOD ORDERABLES Fin al Result [facility] ([place] 1 [facility] Department [place] [address] * Basic metabolic panel (03/24/2023 4:10 AM BPM ANALYST) Sodium 136 135 - 145 mmol/L [facility] [...] [facility] Blood 03/24/2023 4:10 AM BPM ANALYST 03/24/2023 5:18 AM BPM ANALYST Ellyn Barber MD LAB BLOOD ORDERABLES Fin al Result [facility] ([place] 1 [facility] Department [place] [address] * (ABNORMAL) Drugs of Abuse Screen, Urine without Confirmation (03/23/2023 6:53 PM BPM ANALYST) Amphetamine, ur Not Detected CutOff 500ng/mL [facility] [...] revised on 2017. Urine 03/23/2023 6:53 PM BPM ANALYST 03/23/2023 6:57 PM BPM ANALYST Narrative [facility] - 03/23/2023 7:24 PM BPM ANALYST Drug of Abuse screening is performed by immunoassay for medical purposes only. ??This is not to be used for Pain Management purposes. Result [facility] Dariana Noe MD LAB URINE ORDERABLES Tanesha l Result Performing Organization Address [facility] Co de Phone Number [facility] [address] [place] [address] * Ethanol (03/23/2023 4:31 PM BPM ANALYST) Ethanol <10 <=10 mg/dL [facility] ([place]) Comment: Interpretive Data Legal limit of intoxication > or = 80 mg/dL Levels > or = 400 mg/dL are potentially TOXIC. Current interpretive data was last revised on 2018. Blood 03/23/2023 4:31 PM BPM ANALYST 03/23/2023 4:36 PM BPM ANALYST Result [facility] Dariana Noe MD LAB BLOOD ORDERABLES Tanesha l Result Performing Organization Address [facility] Co de Phone Number [facility] [address] [place] [address] * aPTT (03/23/2023 4:31 PM BPM ANALYST) aPTT 32 28 - 38 sec [facility] Comment: Interpretive Data Heparin therapeutic range: 66.0 - 100.0 seconds. Range based on correlation with therapeutic heparin activity range of 0.3 - 0.7 Units/mL. Current interpretive data was last revised on 2023. Blood 03/23/2023 4:31 PM BPM ANALYST 03/23/2023 4:36 PM BPM ANALYST Result [facility] Dariana Noe MD LAB BLOOD ORDERABLES Tanesha l Result [facility] ([place]) 1 [facility] [place] [address] * Protime-INR (03/23/2023 4:31 PM BPM ANALYST) PT 10.6 10.3 - 13.7 sec [facility] ([place]) INR 0.93 0.90 - 1.20 [facility] ([place] Comment: Interpretive data Oral anticoagulant therapeutic ranges: Venous thromboembolism prophylaxis or treatment: 2.0-3.0 CARDIOLOGY Standard range: 2.0-3.0 High-intensity range: 2.5-3.5 Refer to indication-specific guidelines for appropriate target ranges for prosthetic heart valve replacement. Current interpretive data was last revised on 2019. Blood 03/23/2023 4:31 PM BPM ANALYST 03/23/2023 4:36 PM BPM ANALYST Dariana Noe MD LAB BLOOD ORDERABLES Tanesha l Result Performing Organization Address City/[facility]/ZIP Co de Phone Number [facility] ([place] 1 [facility] [place] [address] documented in this encounter Visit Diagnoses Diagnosis [...] Sun03/23/23 at 2038 Given 03/24/2023 4:28 PM BPM ANALYST 500 mg Given 03/24/2023 6:04 AM BPM ANALYST 500 mg Given 03/23/2023 9:44 PM BPM ANALYST 500 mg albuterol 2.5 mg /3 mL (0.083 %) nebulizer solution 2.5 mg 2.5 mg, nebulization, Every 4 hours PRN (music therapist), wheezing, shortness of breath, Starting on Sun03/23/23 at 2041, This therapy was substituted for Albuterol Inhaler per protocol. aluminum-magnesium hydroxide-simethicone (MAALOX) 40-40-4 mg/mL oral suspension 30 mL 30 mL, oral, Every 6 hours PRN, dyspepsia, Starting on Sun03/23/23 at 1604 amitriptyline (ELAVIL) tablet 37.5 mg 37.5 mg, oral, Nightly, First dose on Sun03/23/23 at 2115 Given 03/26/2023 8:27 PM BPM ANALYST 37.5 mg Given 03/24/2023 8:53 PM BPM ANALYST 37.5 mg Given 03/23/2023 9:44 PM BPM ANALYST 37.5 mg bisacodyL (DULCOLAX) suppository 10 mg 10 mg, rectal, Daily PRN, other, no BM in 48 hours, Starting on Sun03/23/23 at 1604, Indications: constipationIndications:constipation buprenorphine (SUBUTEX) sublingual tablet 2 mg 2 mg, sublingual, Every 8 hours scheduled, First dose (after last modification) on Sun03/26/23 at 1400 Given 03/27/2023 5:59 AM BPM ANALYST 2 mg Given 03/26/2023 10:05 PM BPM ANALYST 2 mg Given 03/26/2023 2:05 PM BPM ANALYST 2 mg buprenorphine (SUBUTEX) sublingual tablet 4 mg 4 mg, sublingual, Every 8 hours, First dose on Sun03/25/23 at 0000, For 3 doses, Date/Time of Last Opioid Use: 03/23/2023 at 0430 am RESCHEDULE administration time if needed., Indications: Opioid WithdrawalIndications:Opioid Withdrawal Given 03/25/2023 12:30 AM BPM ANALYST 4 m g chlordiazePOXIDE (LIBRIUM) capsule 25 mg 25 mg, oral, Every 8 hours, First dose on Sun03/25/23 at 2200, For 3 doses Given 03/26/2023 5:09 AM BPM ANALYST 25 mg Given 03/26/2023 12:19 AM BPM ANALYST 25 mg chlordiazePOXIDE (LIBRIUM) capsule 50 mg 50 mg, oral, Every 6 hours, First dose on Sun03/23/23 at 1700, For 3 doses Given 03/24/2023 6:00 AM BPM ANALYST 50 mg Given 03/23/2023 11:48 PM BPM ANALYST 50 mg Given 03/23/2023 5:27 PM BPM ANALYST 50 mg chlordiazePOXIDE (LIBRIUM) capsule 50 mg 50 mg, oral, Every 8 hours, First dose on Sun03/24/23 at 1400, For 4 doses Given 03/25/2023 2:10 PM BPM ANALYST 50 mg Given 03/25/2023 5:18 AM BPM ANALYST 50 mg Given 03/24/2023 8:52 PM BPM ANALYST 50 mg diclofenac sodium (VOLTAREN) 1 % gel 4 g 4 g, topical, 3 times daily, First dose on 03/24/23 at 0030, Use dosing card to measure dose, Apply to affected area: back Given 03/27/2023 8:38 AM BPM ANALYST 4 g Given 03/26/2023 8:35 PM BPM ANALYST 4 g Given 03/26/2023 5:33 PM BPM ANALYST 4 g dicyclomine (BENTYL) capsule 20 mg 20 mg, oral, Every 6 hours PRN, abdominal discomfort, Starting on Sun03/23/23 at 1605, Indications: Abdominal Pain with CrampsIndications:Abdominal Pain with Cramps enoxaparin (LOVENOX) syringe 40 mg 40 mg, subcutaneous, Daily (for enoxaparin), First dose on Sun03/23/23 at 2100, Indications: Deep Vein Thrombosis PreventionIndications:Deep Vein Thrombosis Prevention Given 03/23/2023 9:46 PM BPM ANALYST 40 mg Left Lower Abdomen enoxaparin (LOVENOX) syringe 40 mg 40 mg, subcutaneous, Daily (for enoxaparin), First dose on Sun03/24/23 at 2100, Indications: Deep Vein Thrombosis PreventionIndications:Deep Vein Thrombosis Prevention Given 03/26/2023 8:28 PM BPM ANALYST 40 mg Right Lower Abdomen folic acid (FOLVITE) tablet 1 mg 1 mg, oral, Daily, First dose on Sun03/23/23 at 1645, For 5 days, Each tablet contains 1 mg of folic acid (1.67 mg DFE)., Indications: Folate DeficiencyIndications:Folate Deficiency Given 03/27/2023 8:38 AM BPM ANALYST 1 mg Given 03/26/2023 9:34 AM BPM ANALYST 1 mg Given 03/25/2023 9:30 AM BPM ANALYST 1 mg hydrOXYzine (VISTARIL) capsule 50 mg 50 mg, oral, Every 6 hours PRN, other, mild anxiety - patient reported scale 1-4, Starting on Sun03/23/23 at 1605, Indications: anxietyIndications:anxiety Given 03/25/2023 7:51 PM BPM ANALYST 50 mg Given 03/25/2023 3:23 AM BPM ANALYST 50 mg Given 03/24/2023 4:28 PM BPM ANALYST 50 mg ibuprofen (ADVIL,MOTRIN) tablet 600 mg 600 mg, oral, Every 8 hours PRN, 1st line for pain, pain less than 5/10, Starting on Sun03/23/23 at 1604 Given 03/26/2023 2:09 PM BPM ANALYST 600 mg Given 03/25/2023 7:47 PM BPM ANALYST 600 mg Given 03/24/2023 4:28 PM BPM ANALYST 600 mg loperamide (IMODIUM) capsule 2 mg [...] Assessment Scale score Given 03/25/2023 3:23 AM BPM ANALYST 1 mg Given 03/24/2023 8:53 PM BPM ANALYST 1 mg LORazepam (ATIVAN) tablet 1 mg [...] Sun03/23/23 at 1605 Given 03/25/2023 7:47 PM BPM ANALYST 750 mg Given 03/24/2023 8:53 PM BPM ANALYST 750 mg Given 03/24/2023 6:04 AM BPM ANALYST 750 mg metoprolol XL (TOPROL-XL) extended release tablet 25 mg 25 mg, oral, Daily, First dose on Sun03/24/23 at 0900, Tablets that are scored may be split, but do not crush, chew, dissolve, open or otherwise manipulate tablet/capsule. Given 03/27/2023 8:38 AM BPM ANALYST 25 m g Given 03/25/2023 9:30 AM BPM ANALYST 25 mg Given 03/24/2023 10:06 AM BPM ANALYST 25 mg multivit zkpqqmez-edvm-WE-calcium (THERA-M) tablet 1 tablet 1 tablet, oral, Daily, First dose on Sun03/23/23 at 1645, Indications: Vitamin Deficiency PreventionIndications:Vitamin Deficiency Prevention Given 03/27/2023 8:38 AM BPM ANALYST 1 tablet Given 03/26/2023 9:34 AM BPM ANALYST 1 tablet Given 03/25/2023 9:30 AM BPM ANALYST 1 tablet nicotine (NICODERM CQ) 14 mg patch 24 hour 1 patch 1 patch, transdermal, Administer over 24 Hours, Daily, First dose on 03/24/23 at 0030, Apply a new patch every 24 hours to a clean, dry, hairless site on the upper arm or hip. Rotate site. Medication Applied 03/27/2023 8:38 AM BPM ANALYST 1 patch Right Arm Medication Applied 03/26/2023 9:39 AM BPM ANALYST 1 patch Left Arm Medication Applied 03/25/2023 12:05 PM BPM ANALYST 1 patch Left Arm ondansetron (ZOFRAN) injection [...] 03/24/23 at 0900 Given 03/27/2023 8:38 AM BPM ANALYST 25 mg Given 03/25/2023 9:30 AM BPM ANALYST 25 mg Given 03/24/2023 10:07 AM BPM ANALYST 25 mg thiamine (VITAMIN B1) tablet 100 mg 100 mg, oral, Daily, First dose on 03/23/23 at 1645, For 5 days, Indications: Thiamine DeficiencyIndications:Thiamine Deficiency Given 03/27/2023 8:38 AM BPM ANALYST 100 mg Given 03/26/2023 9:34 AM BPM ANALYST 100 mg Given 03/25/2023 9:31 AM BPM ANALYST 100 mg topiramate (TOPAMAX) tablet 200 mg 200 mg, oral, Daily, First dose (after last modification) on Sun03/24/23 at 0900 Given 03/27/2023 8:38 AM BPM ANALYST 200 mg Given 03/26/2023 9:34 AM BPM ANALYST 200 mg Given 03/25/2023 9:31 AM BPM ANALYST 200 mg documented in this encounter Discontinued [...] Recently Administered Medications Times are shown in BPM ANALYST. Scheduled Medication Order 03/25/2023 03/26/2023 03/27/2023 amitriptyline [...] (Given - Provider: Tala Ponce, RUTHY) multivit xbkqwhrv-gzjh-KB-calcium (THERA-M) tablet 1 tablet 1 tablet, oral, [...] 2.5 mg, nebulization, Every 4 hours PRN (music therapist), wheezing, shortness of breath, Starting on [...] Peyton Harvey RN)1950 (Given - Provider: Peyton Harvey RN) ibuprofen (ADVIL,MOTRIN) tablet 600 mg 600 [...] 03/27/2023 documented in this encounter Care Teams Title Curative Specialist Relationship Specialty Start Date End Date Chris Bean MD [address] [place] [address] [place] [id number] PCP - General Family Medicine 09/08/22 documented as of this encounter
--- OUTSIDE RECORDS SUMMARY | 2024-04-05 06:00 | XMS_ITS | Encounter Summary ---
Author Organization [facility] Address [address] [place] [address] Care Team Providers Care Resource Specialist Teacher Name Role Phone Unavailable Primary Care Provider Unavailabl e Encounter Details Date Type Department Care Team (Late st Contact Info) Description 08/28/2022 Telephone [facility] Family Medicine at [address] [place] [address] Rivas Salcedo [address] [place] [address] Social History Tobacco Use Types Packs/Day Years [...] medication for her Caller???s Call back #: [phone] Does message need to be routed? Yes-Action Needed documented in this encounter Plan of Treatment Not on file documented as of this encounter Visit Diagnoses Not on filedocumented in this encounter
--- OUTSIDE RECORDS SUMMARY | 2024-04-05 06:00 | XMS_ITS | Encounter Summary ---
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 [M51.16] Procedures IN [place] PRTL FFD EXC DISC REEXPL 1 [facility] LUMBAR Re-exploration Right L5-S1 Decompression Laminectomy Referral ID Status Reason Start Date Expiration Date Visits Re quested Visits Authorized [id number] 1 1 Encounter Details Date Type Department Care Team (Late st Contact Info) Description 08/03/2022 7:30 AM CDT - 08/03/2022 10:00 AM CDT Surgery [facility] Operating Room [address] [place] [address] Ernesto Byrd MD [address] [facility] [address] [place] [address] Re-exploration Right L5-S1 Decompression Laminectomy Surgery Details Date/Time Status Location OR Service Patient Class Case Class Case Type Trauma Case? 08/03/2022 7:30 AM Posted [facility] OPERATING ROOM OR Orthopaedic Spine Outpatient in Bed Elective Panel 1 Procedure LRB Anes Op Region Wound Class Comments Re-exploration Right L5-S1 Decompression Laminectomy Right General Back Class I - Clean SSEP, PHOTO PRINT SPECIALIST ([place]) Surgeon Surgeon Role Service Panel Ernesto [...] Everywhere. * Anxiolysis in Adults (AfterCare(R) Instructions(ER/ED)) (Persian) documented in this encounter Medications at Time [...] Decompression Laminectomy Source Note - Jeannette Portillo, SURGICAL CODER - 08/01/2022 1:08 PM CDT Images from [...] stage I -impaired relaxation LVEF: 50-60%. Comments: Signal Circuit Designer is Dr. Garibay 11-15-2019 echocardiogram- LV chamber [...] continuous bi-directional remote audio/visual communication between the copy room technician, reader and myself throughout the entire [...] S1 nerve root was palpated with a Fisher and found to be widely decompressed along [...] infusion (premix) 1.5 mg/kg/hr ? 50.1 kg Melvin weight (9.3938 mL/hr, rounded to 9.39 mL/hr), [...] infusion (premix) 1.5 mg/kg/hr ? 50.1 kg Melvin weight (9.3938 mL/hr, rounded to 9.39 mL/hr), [...]
--- OUTSIDE RECORDS SUMMARY | 2024-04-05 06:00 | XMS_ITS | Encounter Summary ---
Author Organization [facility] Healthcare Address [address] [place] [address] Care Team Providers Care Slat Twister Name Role Phone Chris Bean MD Primary Care Provider [phone] Reason for Visit * Reason Comments 6 month follow up Migraine Anxiety/Depression Encounter Details Date Type Department Care Team (Late st Contact Info) Description 03/28/2023 10:30 AM SURVEY CHIEF Office Visit [facility] Medical Group Family Medicine at [address] [address] Chris Bean MD [address] [place] [address] Generalized anxiety disorder (Primary Dx) Social [...] Comments Blood Pressure 90/58 03/28/2023 10:47 AM SURVEY CHIEF Pulse 96 03/28/2023 10:47 AM SURVEY CHIEF Temperature 36.2 ??C (97.2 ??F) 03/28/2023 10:[address] Respiratory Rate 18 03/28/2023 10:47 AM SURVEY CHIEF Oxygen Saturation 96% 03/28/2023 10:47 AM SURVEY CHIEF Inhaled Oxygen Concentration - - Weight 62.9 kg (138 lb 9.6 oz) 03/28/2023 10:47 AM SURVEY CHIEF Height 157.5 cm (5' 2 ) 03/28/2023 10:47 AM SURVEY CHIEF Body Mass Index 25.35 03/28/2023 10:47 AM SURVEY CHIEF documented in this encounter Ordered Prescriptions Prescription [...] surgery. Recently been for Hydrocodone withdrawal at [facility]. On [place]. Patient follows Pain mgmt at [place]. Interventional Pain Hopper Filler. Past Medical History: Diagnosis Date Allergy-induced asthma Anxiety Current smoker Diastolic heart failure, NYHA class 1 (CMS/HCC) ([facility]) Hypertension Intervertebral disc disorder with [...] extended release tablet 25 mg [DISCONTINUED] multivit jomdlyiy-huwo-JR-calcium (THERA-M) tablet 1 tablet [DISCONTINUED] nicotine (NICODERM [...] (Primary) Comments: Chronic. Uncontrolled. start Cymbalta. [facility] Orders: - DULoxetine DR (CYMBALTA) 30 mg capsule; Take 1 capsule (30 mg total) by mouth 2 (two) times a day Medical Cannabis. HCP Certification Number: [id number] Body mass index is 25.35 kg/m??. BMI Plan: Nutrition/Activities/Behavioral Counseling. Education Provided. Chris Bean MD EY CHIEF EY CHIEF documented in this encounter Plan of Treatment Not on file documented as of this encounter Visit Diagnoses Diagnosis Generalized anxiety disorder- Primary documented in this encounter Care Teams Slat Twister Relationship Specialty Start Date End Date Chris Bean MD [address] [facility] [address] [place] [address] [place] [address] PCP - General Family Medicine 09/08/22 documented as of this encounter
--- OUTSIDE RECORDS SUMMARY | 2024-04-05 06:00 | XMS_ITS | Encounter Summary ---
Author Organization [facility] Healthcare Address [address] [place] [address] Care Team Providers Care Static Balancer Name Role Phone Chris Bean MD Primary Care Provider [phone] Encounter Details Date Type Department Care Team (Late st Contact Info) Description 03/25/2023 Documentation [facility] Warm Hand Off Program 1 [place], [place] [phone] Ravi Fernandes Social History Tobacco Use Types [...] Fernandesson - 03/25/2023 3:31 PM CST PEER ASSISTANT NEWS DIRECTOR met with Pt bedside. Pt and PEER ASSISTANT NEWS DIRECTOR spoke about outpatient areas around [place]. Pt also talked about finding a counselor. PEER ASSISTANT NEWS DIRECTOR gave Pt a list of numbers for their area for Pt to call. [facility]. RIAL STOCKKEEPER YARD documented in this encounter Plan of Treatment Not on file documented as of this encounter Visit Diagnoses Not on filedocumented in this encounter Care Teams Static Balancer Relationship Specialty Start Date End Date Chris Bean MD [address] [facility] [address] [place] [address] [place] [address] PCP - General Family Medicine 09/08/22 documented as of this encounter
--- OUTSIDE RECORDS SUMMARY | 2024-04-05 06:00 | XMS_ITS | Encounter Summary ---
Author Organization [facility] Medical Group Address [address] [facility] [address] [place] [address] Care Team Providers Care Six Pack Loader Operator Name Role Phone Chris Bean MD Primary Care Provider [phone] Reason for Visit * Reason Onset Date Comments Appointment Request 08/29/2022 Encounter Details Date Type Department Care Team (Late st Contact Info) Description 08/29/2022 Telephone [facility] Medical [facility] Family Medicine at [address] [place] [address] Rivas Salcedo [address] [place] [address] Appointment Request Social History Tobacco [...] from Surgery * Telephone Encounter - Gaby Jurado - 08/30/2022 8:58 AM CDT LM for [...] care team offered (e.g., nurse practioner(s), physician after school program assistant(s)) ? N/A, patient would like to see KRISTAN Elizabeth's Callback #: [phone] Additional Comments: None Does message need to be routed? Yes-Action Needed documented in this encounter Plan of Treatment Not on file documented as of this encounter Visit Diagnoses Not on filedocumented in this encounter Care Teams Six Pack Loader Operator Relationship Specialty Start Date End Date Chris Bean MD [address] [facility] [address] [place] [address] [place] [address] PCP - General Family Medicine 09/08/22 documented as of this encounter
--- OUTSIDE RECORDS SUMMARY | 2024-04-05 06:00 | XMS_ITS | Encounter Summary ---
Author Organization [facility] Medical Group Address [address] [facility] [address] [place] [address] Care Team Providers Care Road Mixer Operator Name Role Phone Chris Bean MD Primary Care Provider [phone] Reason for Visit * Reason Onset Date Comments Med Refill 11/22/2022 Encounter Details Date Type Department Care Team (Late st Contact Info) Description 11/22/2022 Telephone [facility] Family Medicine at [address] [place] [address] Chris Bean MD [address] [place] [address] [address] [place] [address] Med Refill Social History Tobacco [...] Morgan LPN - 11/22/2022 4:54 PM CDT Aircrmhart message sent for clarification * Telephone Encounter - Sonia Frost - 11/22/2022 4:38 PM CDT Medication Question/Clarification Medication Name(s): pink eye drops What is the question or clarification needed? Patient would liked to be prescribed medication If needed, Pharmacy(s) medication(s) should be sent to: pharmacy on file Caller???s Callback #: [phone] Additional Comments: none Does message need to be routed? Yes-Action Needed documented in this encounter Plan of Treatment Not on file documented as of this encounter Visit Diagnoses Not on filedocumented in this encounter Care Teams Road Mixer Operator Relationship Specialty Start Date End Date Chris Bean MD [address] [facility] [address] [place] [address] [place] [address] PCP - General Family Medicine 09/08/22 documented as of this encounter
--- OUTSIDE RECORDS SUMMARY | 2024-04-05 06:00 | XMS_ITS | Encounter Summary ---
Author Organization [facility] Healthcare Address [address] [place] [address] Care Team Providers Care Thread Cutter Tender Name Role Phone Chris Bean MD Primary Care Provider [phone] Encounter Details Date Type Department Care Team (Late st Contact Info) Description 03/27/2023 Documentation [facility] Warm Hand Off Program 1 [place], [place] [phone] Galo Wang Social History Tobacco Use Types [...] Wang - 03/27/2023 11:06 AM CST PEER RETIREMENT OFFICER made contact with medical staff and proceeded to Pt's room. PEER RETIREMENT OFFICER met w/Pt at bedside in follow-up to provide support, share lived experience, and discuss transition of care plan. Pt presented to be lethargic but oriented during encounter. Pt noted she atthis time is planning to engage with OP services through [facility] for continued careplans. Pt has been provided with instructional steps to completed Substance Use Disorder assessmentto engage with services. Pt is aware she will need to call [phone] on Tuesdays at 13:00 or at 09:00 to complete enrollment assessment for OP services. Pt also has been in touch with [facility] staff Alfreda Josue to schedule for one on one therapy sessions. Pt planning to D/C home. PEER RETIREMENT OFFICER encouraged Pt to reach out to [facility] anytime if she has any questions or is in need of support. [facility] will follow up with Pt on an OP basis. S PROJECT COORDINATOR S PROJECT COORDINATOR documented in this encounter Plan of Treatment Not on file documented as of this encounter Visit Diagnoses Not on filedocumented in this encounter Care Teams Thread Cutter Tender Relationship Specialty Start Date End Date Chris Bean MD [address] [facility] [address] [place] [address] [place] [address] PCP - General Family Medicine 09/08/22 documented as of this encounter
--- OUTSIDE RECORDS SUMMARY | 2024-04-05 06:00 | XMS_ITS | Encounter Summary ---
Author Organization [facility] Healthcare Address [address] [place] [address] Care Team Providers Care Engineer Soils Name Role Phone Chris Bean MD Primary Care Provider [phone] Encounter Details Date Type Department Care Team (Late st Contact Info) Description 03/19/2023 [facility] Initial Eligibility [facility] Warm Hand Off Program 1 [place], [place] [phone] Ravi Fernandes Social History Tobacco Use Types [...] STABILIZATION DEMOGRAPHICS GENDER IDENTITY Female ADDRESS [address] [facility], [place] [address] PHONE NUMBER [phone] N [phone] INSURANCE NAME [facility] INS. ID [id number] SCHEDULED INTAKE ASSESSMENT DATE TIME 03.23.23 1030 [...] Period of abstinence: If recently discharged from [facility] medical stabilization, what will be different this [...] go from here? []Inpatient [x]Outpatient []Partial Hospital []Mortgage Loan Funder [][place] []Sober Living Do you have safe, reliable transportation (car and license, public transport., someone to drive you, etc.)? [x]Yes []No Do you have any problems with walking or getting around that would make it difficult to attend treatment? []Yes [x]No Do you have any legal requirement for residential, inpatient or assisted house treatment? []Yes [x]No Do you have [...] Are you interested in working with a Nascar Pit Crew Person? []No []Yes ICAL PREPARER documented in this encounter Plan of Treatment Not on file documented as of this encounter Visit Diagnoses Not on filedocumented in this encounter Care Teams Engineer Soils Relationship Specialty Start Date End Date Chris Bean MD [address] [facility] [address] [place] [address] [place] [address] PCP - General Family Medicine 09/08/22 documented as of this encounter
--- OUTSIDE RECORDS SUMMARY | 2024-04-05 06:00 | XMS_ITS | Encounter Summary ---
Author Organization [facility] Healthcare Address [address] [place] [address] Care Team Providers Care Grounds Maintenance Manager Name Role Phone Chris Bean MD Primary Care Provider Encounter Details Date Type Department Care Team (Late st Contact Info) Description 03/24/2023 Documentation [facility] Warm Hand Off Program 1 [place], [place] [phone] Ravi Fernandes Social History Tobacco Use Types [...] Ravi - 03/24/2023 2:25 PM CST PEER REGIONAL FLATBED TRUCK DRIVER met with Pt bedside. Pt was doing their hair and walked PEER REGIONAL FLATBED TRUCK DRIVER in. Pt stated that she wanted to stop using opioids for pain. PEER REGIONAL FLATBED TRUCK DRIVER encouraged Pt to speak to doctor about ideas and to ask about the use of Suboxone for pain management. Pt stated that they did not want to commit to residential treatment at this time with Ruth jackson. Pt stated that they are interested in outpatient treatment in the area of their home. PEER REGIONAL FLATBED TRUCK DRIVER let Pt know that PEER REGIONAL FLATBED TRUCK DRIVER will look and see what they could find for OP treatment in the [facility]. NT PORTFOLIO MANAGER documented in this encounter Plan of Treatment Not on file documented as of this encounter Visit Diagnoses Not on filedocumented in this encounter Care Teams Grounds Maintenance Manager Relationship Specialty Start Date End Date Chris Bean MD [address] [facility] [address] [place] [address] [place] [address] PCP - General Family Medicine 09/08/22 documented as of this encounter
--- OUTSIDE RECORDS SUMMARY | 2024-04-05 06:00 | XMS_ITS | Encounter Summary ---
Author Organization [facility] Healthcare Address [address] [place] [address] Care Team Providers Care Nuclear Instructor Name Role Phone Chris Bean MD Primary Care Provider [phone] Encounter Details Date Type Department Care Team (Late st Contact Info) Description 03/13/2023 Telephone [facility] Medical [facility] Family Medicine at [address] [place] [address] Chris Bean MD [address] [place] [address] [address] [place] [address] Social History Tobacco Use Types [...] PM CST Patient's lab orders have at [facility] will need new orders Orders in [facility] ATIONS MANAGER documented in this encounter Plan of [...] 3:35 AM CDT Performed at: ??01 - [address] ??[id number] Cephalometric Analyst: Zhao Pugh PhD, Phone: ??[phone] us Chris Bean MD LAB BLOOD ORDERABLES [...] AM CDT Performed at: ??01 - [facility] [address] ??[id number] Cephalometric Analyst: Zhao Pugh PhD, Phone: ??[phone] us Chris Bean MD LAB BLOOD ORDERABLES [...] AM CDT Performed at: ??01 - [facility] [address] ??[id number] Cephalometric Analyst: Zhao Pugh PhD, Phone: ??[phone] us Chris Bean MD LAB BLOOD ORDERABLES Final Resul t Performing Organization Address [facility] de Phone Number [facility] - * TSH (09/04/2023 10:29 AM CDT) TSH 3.090 0.450 - 4.500 uIU/mL [facility] - 01 Blood 09/04/2023 10:2 9 AM CDT 09/04/2023 Narrative [facility] - 09/05/2023 4:08 AM CDT Performed at: ??01 - [facility] [address] ??[id number] Cephalometric Analyst: Zhao Pugh PhD, Phone: ??[phone] us Chris Bean MD LAB BLOOD ORDERABLES Final Resul t Performing Organization Address [facility] Co de Phone Number [facility] - documented in this encounter Visit Diagnoses Diagnosis Benign essential HTN- Primary Screening for lipoid disorders Screening for metabolic disorder documented in this encounter Care Teams Nuclear Instructor Relationship Specialty Start Date End Date Chris Bean MD [address] [facility] [address] [place] [address] [place] [address] PCP - General Family Medicine 09/08/22 documented as of this encounter
--- OUTSIDE RECORDS SUMMARY | 2024-04-05 06:00 | XMS_ITS | Encounter Summary ---
Author Organization [facility] Medical Group Address [address] [facility] [address] [place] [address] Care Team Providers Care Clay Digger Name Role Phone Chris Bean MD Primary Care Provider [phone] Reason for Visit * Reason Comments Follow-up Medication refill Encounter Details Date Type Department Care Team (Late st Contact Info) Description 09/26/2022 11:00 AM CDT Office Visit [facility] Medical Group Family Medicine at [address] [place] [address] Chris Bean MD [address] [place] [address] [address] [place] [address] Encounter for annual health examination [...] documented as of this encounter Care Teams Clay Digger Relationship Specialty Start Date End Date Chris Bean MD [address] [facility] [address] [place] [address] [place] [address] PCP - General Family Medicine 09/08/22 documented as of this encounter
--- OUTSIDE RECORDS SUMMARY | 2024-04-05 06:00 | XMS_ITS | Encounter Summary ---
Author Organization [facility] Healthcare Address [address] [place] [address] Care Team Providers Care Fruit Harvest Machine Operator Name Role Phone Chris Bean MD Primary Care Provider [phone] Reason for Visit * Auth/Cert (Routine) Specialty Diagnoses / Procedures Referred By Contac t Referred To Contact Diagnoses Opioid dependence, uncomplicated Alcohol withdrawal syndrome without complication (HCC) F11.20 Procedures na Referral ID Status Reason Start Date Expiration Date Visits Re quested Visits Authorized [id number] 1 1 Encounter Details Date Type Department Care Team (Late st Contact Info) Description 03/23/2023 11:30 AM DIRECTOR OF EMPLOYEE DEVELOPMENT [address] [address] Social History Tobacco Use Types Packs/Day Years [...] Diagnosis Comments EGFR STAT 03/23/2023 10:56 AM DIRECTOR OF EMPLOYEE DEVELOPMENT CBC WITHOUT DIFFERENTIAL STAT 03/23/2023 10:56 AM DIRECTOR OF EMPLOYEE DEVELOPMENT COMPREHENSIVE METABOLIC PANEL STAT 03/23/2023 10:56 AM DIRECTOR OF EMPLOYEE DEVELOPMENT documented in this encounter Results * eGFR (03/23/2023 10:56 AM DIRECTOR OF EMPLOYEE DEVELOPMENT) eGFR 100 mL/min/1. 73 m2 NARAYAN MORA [...] reviewed 2021. Blood 03/23/2023 10:5 6 AM DIRECTOR OF EMPLOYEE DEVELOPMENT 03/23/2023 11:01 AM DIRECTOR OF EMPLOYEE DEVELOPMENT us Judie Jackson MD LAB BLOOD ORDERABLES Final Re sult [facility] ([facility]) [address] [facility] Department [place] [address] * (ABNORMAL) Comprehensive metabolic panel (03/23/2023 10:56 AM DIRECTOR OF EMPLOYEE DEVELOPMENT) Sodium 138 135 - 145 mmol/L [facility] [...] [facility] ([facility]) Blood 03/23/2023 10:5 6 AM DIRECTOR OF EMPLOYEE DEVELOPMENT 03/23/2023 11:01 AM DIRECTOR OF EMPLOYEE DEVELOPMENT us Judie Jackson MD LAB BLOOD ORDERABLES Final Re sult [facility] ([place]) [address] [facility] Department [place] [address] * (ABNORMAL) CBC without differential (03/23/2023 10:56 AM DIRECTOR OF EMPLOYEE DEVELOPMENT) WBC 4.8 3.8 - 9.9 K/cumm CERNER [...] [facility] ([facility]) Blood 03/23/2023 10:5 6 AM DIRECTOR OF EMPLOYEE DEVELOPMENT 03/23/2023 11:01 AM DIRECTOR OF EMPLOYEE DEVELOPMENT us Judie Jackson MD LAB BLOOD ORDERABLES Final Re sult [facility] ([place]) [address] [facility] Department [place] [address] documented in this encounter Visit Diagnoses Not on filedocumented in this encounter Care Teams Fruit Harvest Machine Operator Relationship Specialty Start Date End Date Chris Bean MD [address] [facility] [address] [place] [address] [place] [address] PCP - General Family Medicine 09/08/22 documented as of this encounter
--- OUTSIDE RECORDS SUMMARY | 2024-04-05 06:00 | XMS_ITS | Encounter Summary ---
Author Organization [facility] Medical Group Address [address] [facility] [address] [place] [address] Care Team Providers Care Windows Server Engineer Name Role Phone Chris Bean MD Primary Care Provider [phone] Reason for Visit * Reason Onset Date Comments Med Refill 01/04/2023 Encounter Details Date Type Department Care Team (Late st Contact Info) Description 01/04/2023 Telephone [facility] Medical [facility] Family Medicine at [address] [place] [address] Chris Bean MD [address] [place] [address] [address] [place] [address] Med Refill Social History Tobacco [...] to: pharmacy on file Caller???s Callback #: [phone] Additional Comments: none Does message need to be routed? Yes-Action Needed documented in this encounter Plan of Treatment Not on file documented as of this encounter Visit Diagnoses Not on filedocumented in this encounter Care Teams Windows Server Engineer Relationship Specialty Start Date End Date Chris Bean MD [address] [facility] [place] [address] PCP - General Family Medicine 09/08/22 documented as of this encounter
--- OUTSIDE RECORDS SUMMARY | 2024-04-05 06:00 | XMS_ITS | Encounter Summary ---
Author Organization [facility] Medical Group Address [address] [facility] [address] [place] [address] Care Team Providers Care Popcorn Attendant Name Role Phone Unavailable Primary Care Provider Unavailabl e Encounter Details Date Type Department Care Team (Late st Contact Info) Description 08/03/2022 Orders Only [facility] [address] [facility] [address] [place] [address] Ernesto Byrd MD [address] [facility] [address] [place] [address] Social History Tobacco Use Types [...]
--- OUTSIDE RECORDS SUMMARY | 2024-04-05 06:00 | XMS_ITS | Encounter Summary ---
Author Organization [facility] Medical Group Address [address] [facility] [address] [place] [address] Care Team Providers Care Cap Sizer Name Role Phone Unavailable Primary Care Provider Unavailabl e Reason for Visit * Reason Onset Date Comments a couple surgery questions post op 08/07/2022 Encounter Details Date Type Department Care Team (Late st Contact Info) Description 08/07/2022 Telephone [facility] [place] [address] [facility] [address] [place] [address] Elvira Brunson, RUTHY a couple [...]
--- OUTSIDE RECORDS SUMMARY | 2024-04-05 06:00 | XMS_ITS | Encounter Summary ---
Author Organization [facility] Address [address] [place] [address] Care Team Providers Care Classroom Teacher Name Role Phone Chris Bean MD Primary Care Provider [phone] Encounter Details Date Type Department Care Team (Late st Contact Info) Description 03/27/2023 Telephone [facility] Warm Hand Off Program 1 [place], [place] [phone] Alfreda Josue LCSW Social History Tobacco Use [...] Pt noted interest and agreed for the telegraphic typewriter repairer to text her contact information for Pt to call once dc'd. EMILIA texted name and cell phone number to Pt. EMILIA will follow and offer intervention and support as needed. ER'S LICENSE EXAMINER documented in this encounter Plan of Treatment Not on file documented as of this encounter Visit Diagnoses Not on filedocumented in this encounter Care Teams Classroom Teacher Relationship Specialty Start Date End Date Chris Bean MD [address] [place] [address] [place] [address] PCP - General Family Medicine 09/08/22 documented as of this encounter
--- OUTSIDE RECORDS SUMMARY | 2024-04-05 06:00 | XMS_ITS | Encounter Summary ---
Author Organization [facility] Address [address] [facility] [address] [place] [address] Care Team Providers Care Hr Advisor Name Role Phone Chris Bean MD Primary Care Provider [phone] Encounter Details Date Type Department Care Team (Late st Contact Info) Description 10/24/2022 Telephone [facility] [place] [address] [facility] [address] [place] [address] Ernesto Byrd MD [address] [facility] [address] [place] [address] Social History Tobacco Use Types [...] status documented in this encounter Care Teams Hr Advisor Relationship Specialty Start Date End Date Chris Bean MD [address] [place] [address] [place] [address] PCP - General Family Medicine 09/08/22 documented as of this encounter
--- OUTSIDE RECORDS SUMMARY | 2024-04-05 06:00 | XMS_ITS | Encounter Summary ---
Author Organization [facility] Address [address] [place] [address] Care Team Providers Care Skin Drier Name Role Phone Chris Bean MD Primary Care Provider [phone] Encounter Details Date Type Department Care Team (Late st Contact Info) Description 03/23/2023 [facility] Enrollment [facility] Warm Hand Off Program 1 [place], [place] [phone] Galo Wang Social History Tobacco Use Types [...] Comments Blood Pressure 129/89 03/23/2023 12:32 PM SALES BRANCH MANAGER Pulse 92 03/23/2023 12:32 PM SALES BRANCH MANAGER Temperature - - Respiratory Rate - - [...] 25-36 moderately severe 36 + severe Clinical [place] Withdrawal Assessment Alcohol Scale (CIWA-Ar) Pulse: 92 BP: 129/89 Nausea and Vomiting - Ask Do you feel sick to your stomach? Have you vomited? : 3 Tactile Disturbances - Ask Have you any itching, gewo-muy-jfxqpyc sensations, burning or numbness,or do you feel [...] Addictive, Substance-Related, and Co-Occurring Conditions. 3rd ed. [place], [place]: [employer]; 2013. Copyright 2013 by the [place] [employer] Addiction [employer]. 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
--- OUTSIDE RECORDS SUMMARY | 2024-04-05 06:00 | XMS_ITS | Encounter Summary ---
Author Organization [facility] Address [address] [place] [address] Care Team Providers Care Reject Opener Name Role Phone Chris Bean MD Primary Care Provider [phone] Encounter Details Date Type Department Care Team (Late st Contact Info) Description 04/17/2023 Documentation [facility] Warm Hand Off Program 1 [place], [place] [phone] Ashley White Social History Tobacco Use Types [...] outreach in 30 days for follow up. VARNISHER documented in this encounter Plan of Treatment Not on file documented as of this encounter Visit Diagnoses Not on filedocumented in this encounter Care Teams Reject Opener Relationship Specialty Start Date End Date Chris Bean MD [address] [facility] [address] [place] [address] [place] [address] PCP - General Family Medicine 09/08/22 documented as of this encounter
--- OUTSIDE RECORDS SUMMARY | 2024-04-05 06:00 | XMS_ITS | Encounter Summary ---
Author Organization [facility] Address [address] [address] Care Team Providers Care Casket Assembler Metal Name Role Phone Chris Bean MD Primary Care Provider [phone] Reason for Referral * Diagnostic Imaging (Routine) - Closed Specialty Diagnoses / Procedures Referred By Ralph vásquez Referred To Contact Diagnoses Intervertebral disc disorder with radiculopathy of lumbar region Status post lumbar surgery Procedures XR Spine Lumbar 2 or 3 Views Gena Paz NP Phone: tel: fax: [facility] Referral ID Status Reason Start Date Expiration Date Visits Re quested Visits Authorized [id number] Closed 09/13/2022 10/13/2023 1 1 Encounter Details Date Type Department Care Team (Latest Contact Info) Description 09/13/2022 9:45 AM CDT Office Visit [facility] [place] [address] [facility] [address] [place] [id number] Gena Paz NP [address] [facility] [address] [place] [address] Intervertebral disc disorder with radiculopathy of lumbar region (Primary Dx); Status post lumbar surgery; Status post lumbar microdiscectomy Social History Tobacco Use Types Packs/Day Years [...] as of this encounter Progress Notes * Gena Paz, RESIDENTIAL FIELD MANAGER - 09/13/2022 9:45 AM CDT Images from the original note were not included. POSTOP NOTE Gerardo Whitt 09/13/2022 REASON FOR VISIT: 6 weeks postop following Right L5-S1 Microdiscectomy per Dr. Ernesto Byrd on 08/03/22 for lumbar radiculopathy HISTORY OF PRESENT ILLNESS: Ms. Whitt is doing well overall. She reports about a week and a half after surgery she had a fall and caught herself with increased pain in her back but was alleviated with the use of Medrol dose pack. She denies any specific back pain mostly achy in nature and tightness. She denies any radiating pain down her right lower extremity. She is quite pleased with her overall progress. She denies any numbness, tingling, bowel bladder incontinence, peripheral swelling. Shehas neuropathy in her feet. She is taking hydrocodone 10 mg 2 per day and tizanidine as needed. Herpain medications are being prescribed by Marine Gupta through [facility]. Patient reports interest in weaning off her pain medications at this time. 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 Current Outpatient Medications Medication albuterol HFA (ProAir HFA) 90 mcg/actuation inhaler amitriptyline (ELAVIL) 25 mg tablet furosemide (LASIX) 20 mg tablet methylPREDNISolone (MEDROL DOSEPACK) 4 mg Dosepack metoprolol XL (TOPROL-XL) 25 mg extended release tablet nystatin 100,000 unit/mL suspension tiZANidine (ZANAFLEX) 4 mg tablet topiramate (TOPAMAX) 100 mg tablet No current facility-administered medications for this visit. Physical Exam Constitutional: Appearance: She is normal weight. HENT: Head: Normocephalic and atraumatic. Pulmonary: Effort: Pulmonary effort is normal. Musculoskeletal: Right lower leg: No edema. Left lower leg: No edema. Skin: General: Skin is warm and dry. Comments: Lumbar incision is healed. Appropriate skin care was reviewed with the patient. Neurological: Mental Status: She is alert and oriented to person, place, and time. Sensory: Sensation is intact. Motor: Motor function is intact. Coordination: Coordination is intact. Gait: Gait is intact. Comments: Bilateral lower extremity strength is 5/5. Bilateral hip flexor strength is 5/5. Patient is able to walk on her toes, heel, tandem walk without issues. Lumbar range of motion is intact in all planes. Psychiatric: Attention and Perception: Attention normal. Mood and Affect: Mood normal. Speech: Speech normal. Behavior: Behavior is cooperative. Diagnostic Studies: Lumbar AP lateral x-rays performed in the office and personally reviewed by me show well-decompressed L5-S1 on the right without changes in the alignment. Degenerative changes of the disc space noted at L4-5 and L5-S1. 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 FOLLOW UP APPT: As needed. Preop MRI CD returned to the patient. This document was created using speech voice [...] addressed to the provider's office for clarification. 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 FOLLOW UP APPT: As needed. Preop MRI CD returned to the patient. documented in this encounter Plan of Treatment [...] space noted at L4-5 and L5-S1. Gena P. Paz RESIDENTIAL FIELD MANAGER IMG XR PROCEDURES Final Result documented in this encounter Visit Diagnoses Diagnosis Intervertebral disc disorder with radiculopathy of lumbar region- Primary Status post lumbar surgery Other postprocedural status Status post lumbar microdiscectomy Other postprocedural status documented in this encounter Care Teams Casket Assembler Metal Relationship Specialty Start Date End Date Chris Bean MD [address] [facility] [address] [place] [address] [place] [id number] PCP - General Family Medicine 09/08/22 documented as of this encounter
--- OUTSIDE RECORDS SUMMARY | 2024-04-05 06:00 | XMS_ITS | Encounter Summary ---
Author Organization [facility] Address [address] [address] Care Team Providers Care Corporate Legal Assistant Name Role Phone Chris Bean MD Primary Care Provider [phone] Reason for Visit * Diagnostic Imaging (Routine) - Closed Specialty Diagnoses / Procedures Referred By Ralph vásquez Referred To Contact Diagnoses Intervertebral disc disorder with radiculopathy of lumbar region Status post lumbar surgery Procedures XR Spine Lumbar 2 or 3 Views Gena Paz, VIMAL Phone: tel: fax: [facility] Referral ID Status Reason Start Date Expiration Date Visits Re quested Visits Authorized [id number] Closed 09/13/2022 10/13/2023 1 1 Encounter Details Date Type Department Care Team (Late st Contact Info) Description 09/13/2022 8:25 AM CDT Ancillary Procedure [facility] [place] [address] [facility] [address] [place] [address] Social History Tobacco Use Types [...] noted at L4-5 and L5-S1. Gena Paz HEALTH AID IMG XR PROCEDURES Final Result documented in this encounter Visit Diagnoses Not on filedocumented in this encounter Care Teams Corporate Legal Assistant Relationship Specialty Start Date End Date Chris Bean MD [address] [facility] [place] [place] [address] PCP - General Family Medicine 09/08/22 documented as of this encounter
--- OUTSIDE RECORDS SUMMARY | 2024-04-05 06:02 | XMS_ITS | Encounter Summary ---
Author Organization [facility] Healthcare Address [address] [place] [address] Care Team Providers Care Circular Gang Saw Operator Name Role Phone Travis Durand MD Primary Care Provider [phone] Encounter Details Date Type Department Care Team (Latest Contact Info) Description 11/18/2021 - 11/18/2021 11:59 PM CDT Hospital Encounter [facility] - Imaging [phone] Discharge Disposition: Discharge to home or self [...] hydroxide simethicone-diphen hydramine-lidocain e-nystatin (MAGIC MOUTHWASH) suspension 9-1-7-1Indications :Stomatitis Swish and swallow 10 mL 4 [...] MD IMG MRI PROCEDURES Final Resu lt RAD_PACS_OUTSIDE_FILM_[facility] documented in this encounter Visit Diagnoses Not on filedocumented in this encounter Care Teams Circular Gang Saw Operator Relationship Specialty Start Date End Date Travis Durand MD PCP - General Family Medicine 09/16/19 05/31/22 documented as of this encounter
--- OUTSIDE RECORDS SUMMARY | 2024-04-05 06:02 | XMS_ITS | Encounter Summary ---
Author Organization [facility] Address [address] [facility] [address] [place] [address] Care Team Providers Care Oil Changer Name Role Phone Unavailable Primary Care Provider Unavailabl e Reason for Visit * Reason Onset Date Comments image results 06/09/2022 Encounter Details Date Type Department Care Team (Late st Contact Info) Description 06/09/2022 Telephone [facility] [address] [facility] [address] [place] [address] Elvira Brunson, RN image results [...] Elvira Brunson RN - 06/09/2022 9:02 AM ELECTROTHERAPIST LM for pt about information below. Informed patient to call back if she was interested in proceeding with surgery with Dr. Byrd, and we can set her up if she would like to go that route. ----- Message from Ernesto Byrd MD sent at 06/07/2022 4:31 PM ELECTROTHERAPIST ----- Regarding: Result review I reviewed the MRI and plain films of Gerardo Whitt. This shows good lordosis and no abnormal listhesis on dynamic range of motion. There is significant lateral recess stenosis at L5-S1 on right whichcorresponds to her symptoms. We will plan on re-exploration and decompression L5-S1 on right. TROTHERAPIST TROTHERAPIST documented in this encounter Plan of Treatment Not on file documented as of this encounter Visit Diagnoses Not on filedocumented in this encounter
--- OUTSIDE RECORDS SUMMARY | 2024-04-05 06:02 | XMS_ITS | Encounter Summary ---
Author Organization [facility] Address [address] [facility] [address] [place] [address] Care Team Providers Care Tower Climber Name Role Phone Travis Durand MD Primary Care Provider [phone] Reason for Visit * Reason Onset Date Comments Med Refill 05/08/2022 Encounter Details Date Type Department Care Team (Late st Contact Info) Description 05/08/[address] [facility] Family Medicine at [address] [place] [address] Chris Bean MD [address] [place] [address] [address] [place] [address] Med Refill Social History Tobacco [...] Jurado - 05/10/2022 9:25 AM CST . RICAL CONTROL NESTING OPERATOR * Telephone Encounter - Gaby Jurado - 05/10/2022 9:21 AM CST LM for patient to call office RICAL CONTROL NESTING OPERATOR * Telephone Encounter - aGby Jurado - 05/09/2022 10:12 AM CST LM for patient to call office. RICAL CONTROL NESTING OPERATOR * Telephone Encounter - Gaby Jurado - 05/08/2022 4:54 PM CST LM for patient to call office RICAL CONTROL NESTING OPERATOR * Telephone Encounter - Viky Crain RN - 05/08/2022 4:05 PM NUMERICAL CONTROL NESTING OPERATOR Topiramate refill Needs appointment, please schedule then I will send refill RICAL CONTROL NESTING OPERATOR documented in this encounter Plan of Treatment Not on file documented as of this encounter Visit Diagnoses Not on filedocumented in this encounter Care Teams Tower Climber Relationship Specialty Start Date End Date Travis Durand MD PCP - General Family Medicine 09/16/19 05/31/22 documented as of this encounter
--- OUTSIDE RECORDS SUMMARY | 2024-04-05 06:02 | XMS_ITS | Encounter Summary ---
Author Organization [facility] Address [address] [facility] [address] [place] [address] Care Team Providers Care Paste Mixer Liquid Name Role Phone Travis Durand MD Primary Care Provider [phone] Reason for Visit * Reason Onset Date Comments Appointment Request 02/15/2022 Encounter Details Date Type Department Care Team (Late st Contact Info) Description 02/15/2022 Telephone [facility] Family Medicine at [address] [place] [address] Travis Durand MD [address] [place] [address] [address] [place] [address] Appointment Request Social History Tobacco [...] reactive airway disease Ok to refer to community development manager? * Telephone Encounter - Ivette Carroll MA [...] other provider offered? N/A Caller's Callback #: [phone] Additional Comments: patient needs a referral for an community development manager Does message need to be routed? Yes-Action Needed documented in this encounter Plan of Treatment Not on file documented as of this encounter Visit Diagnoses Not on filedocumented in this encounter Care Teams Paste Mixer Liquid Relationship Specialty Start Date End Date Travis Durand MD PCP - General Family Medicine 09/16/19 05/31/22 documented as of this encounter
--- OUTSIDE RECORDS SUMMARY | 2024-04-05 06:02 | XMS_ITS | Encounter Summary ---
Author Organization [facility] Address [address] [facility] [address] [place] [address] Care Team Providers Care Manufacturing Management Associate Name Role Phone Unavailable Primary Care Provider Unavailabl e Reason for Visit * Reason Comments Follow-up Med refill Encounter Details Date Type Department Care Team (Late st Contact Info) Description 06/01/2022 2:45 PM MANAGER FRONT OFFICE Telemedicine [facility] Family Medicine at [address] [place] [address] Chris Bean MD [address] [place] [address] [address] [place] [address] Benign essential HTN (Primary Dx); Migraine without [...] 62.6 kg (138 lb) 06/01/2022 2:56 PM MANAGER FRONT OFFICE Height 154.9 cm (5' 1 ) 06/01/2022 2:56 PM MANAGER FRONT OFFICE Body Mass Index 26.07 06/01/2022 2:56 PM MANAGER FRONT OFFICE documented in this encounter Ordered Prescriptions Prescription [...] 60 tablet 0 al & mag hydroxide zejmmpohbiq-snsududtoouonlv-jwamclwin-nystatin (MAGIC MOUTHWASH) suspension 1-1-1-1 Swish and swallow [...] took place via real-time video connection with [facility]. During the visit, I was located at the [facility] After Hours/Primary Care Clinic [address] and patient was located at home in the [facility]. The video session started at 3 [...] Nutrition/Activities/Behavioral Counseling. Education Provided. Chris Bean MD GER FRONT OFFICE documented in this encounter Plan of Treatment [...]
--- OUTSIDE RECORDS SUMMARY | 2024-04-05 06:02 | XMS_ITS | Encounter Summary ---
Author Organization [facility] Address [address] [facility] [address] [place] [address] Care Team Providers Care Rock Star Name Role Phone Travis Durand MD Primary Care Provider [phone] Reason for Visit * Reason Onset Date Comments Appointment Request 05/25/2022 Encounter Details Date Type Department Care Team (Late st Contact Info) Description 05/25/2022 Telephone [facility] Family Medicine at [address] [place] [address] Chris Bean MD [address] [place] [address] [address] [place] [address] Appointment Request Social History Tobacco [...] Nothing available until 06.29.22. Warm transferred to [facility] on backline for further assistance with scheduling. Caller???s Call back #: [phone] Does message need to be routed? No RGLASS FINISHER * Telephone Encounter - Hair White MA - 05/25/2022 12:06 PM CST Pt needs appt. Not seen since Refill for topiramate has been denied. RGLASS FINISHER documented in this encounter Plan of Treatment Not on file documented as of this encounter Visit Diagnoses Diagnosis Migraine without aura and without status migrainosus, not intractable documented in this encounter Care Teams Rock Star Relationship Specialty Start Date End Date Travis Durand MD PCP - General Family Medicine 09/16/19 05/31/22 documented as of this encounter
--- OUTSIDE RECORDS SUMMARY | 2024-04-05 06:02 | XMS_ITS | Encounter Summary ---
Author Organization [facility] Medical [facility] Address [address] [facility] [address] [place] [address] Care Team Providers Care Associate Professor Of Law Name Role Phone Travis Durand MD Primary Care Provider Encounter Details Date Type Department Care Team (Late st Contact Info) Description 05/26/2022 Telephone [facility] Family Medicine at [address] [place] [address] Chris Bean MD [address] [place] [address] [address] [place], [place] [phone] Social History Tobacco Use Types Packs/Day Years [...] says Topiramate 100 mg 1 po BID END RIDER documented in this encounter Plan of Treatment Not on file documented as of this encounter Visit Diagnoses Diagnosis Migraine without aura and without status migrainosus, not intractable documented in this encounter Care Teams Associate Professor Of Law Relationship Specialty Start Date End Date Travis Durand MD PCP - General Family Medicine 09/16/19 05/31/22 documented as of this encounter
--- OUTSIDE RECORDS SUMMARY | 2024-04-05 06:02 | XMS_ITS | Encounter Summary ---
Author Organization [facility] Address [address] [facility] [address] [place] [address] Care Team Providers Care Automatic Transmission Mechanic Name Role Phone Travis Durand MD Primary Care Provider [phone] Encounter Details Date Type Department Care Team (Late st Contact Info) Description 03/02/2022 Telephone [facility] Family Medicine at [address] [place] [address] Travis Durand MD [address] [place] [address] [address] [place], [place] [address] Social History Tobacco Use Types Packs/Day Years [...] Ferrer - 03/02/2022 1:40 PM CST error CHMENT TEACHER documented in this encounter Plan of Treatment Not on file documented as of this encounter Visit Diagnoses Not on filedocumented in this encounter Care Teams Automatic Transmission Mechanic Relationship Specialty Start Date End Date Travis Durand MD PCP - General Family Medicine 09/16/19 05/31/22 documented as of this encounter
--- OUTSIDE RECORDS SUMMARY | 2024-04-05 06:02 | XMS_ITS | Encounter Summary ---
Author Organization [facility] Address [address] [facility] [address] [place] [address] Care Team Providers Care Iron Molder Helper Name Role Phone Travis Durand MD Primary Care Provider [phone] Encounter Details Date Type Department Care Team (Late st Contact Info) Description 05/17/2022 Documentation [facility] [place] [address] [facility] [address] [place] [address] Ernesto Byrd MD [address] [facility] [address] [place] [address] Social History Tobacco Use Types [...] call back when ready to vickey surgery. PING CLERK/ADMIN documented in this encounter Plan of Treatment Not on file documented as of this encounter Visit Diagnoses Not on filedocumented in this encounter Care Teams Iron Molder Helper Relationship Specialty Start Date End Date Travis Durand MD PCP - General Family Medicine 09/16/19 05/31/22 documented as of this encounter
--- OUTSIDE RECORDS SUMMARY | 2024-04-05 06:02 | XMS_ITS | Encounter Summary ---
Author Organization [facility] Address [address] [facility] [address] [place] [address] Care Team Providers Care Inventory And Pricing Associate Name Role Phone Unavailable Primary Care Provider Unavailabl e Encounter Details Date Type Department Care Team (Late st Contact Info) Description 07/26/2022 Telephone [facility] [place] [address] [facility] [address] [place] [address] Gena Paz, [facility] NURSE PRACTITIONER [address] [facility] [address] [place] [address] Social History Tobacco Use Types Packs/Day Years [...] aware to arrive at 530 a.m at [facility] for surgery at 730 am. 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 Patient has surgical folder and Antibacterial wipes per SEC. Films are available in the [employer] system. Patient reports her phone was not [...]
--- OUTSIDE RECORDS SUMMARY | 2024-04-05 06:02 | XMS_ITS | Encounter Summary ---
Author Organization [facility] Address [address] [facility] [address] [place] [address] Care Team Providers Care Data Transcriber Name Role Phone Travis Durand MD Primary Care Provider Reason for Visit * Reason Onset Date Comments Med Refill 05/29/2022 Encounter Details Date Type Department Care Team (Late st Contact Info) Description 05/29/2022 Telephone [facility] Family Medicine at [place] [address] [facility] [address] [place] [address] Travis Durand MD [address] [place] [address] [address] [place] [address] Med Refill Social History Tobacco [...] Viky Crain RN - 05/30/2022 7:00 AM ACCIDENT INVESTIGATOR 30 day script sent. Patient must keep appointment on 06/01/2022 or we will no longer fill DENT INVESTIGATOR * Telephone Encounter - Chris [place] MD - 05/29/2022 4:40 PM CST Yes to refill. DENT INVESTIGATOR * Telephone Encounter - Viky Crain RN - 05/29/2022 1:42 PM ACCIDENT INVESTIGATOR We have been trying to reach patient since 05/08/2022 to schedule appointment, patient is now scheduled on 06/01/2022. Do you want to give 30 day script or wait till 06/01/2022 to send out when she is seen DENT INVESTIGATOR * Telephone Encounter - Gaby Jurado - 05/29/2022 10:38 AM CST Refill on Topiramate DENT INVESTIGATOR documented in this encounter Plan of Treatment [...] documented as of this encounter Care Teams Data Transcriber Relationship Specialty Start Date End Date Travis Durand MD PCP - General Family Medicine 09/16/19 05/31/22 documented as of this encounter
--- OUTSIDE RECORDS SUMMARY | 2024-04-05 06:02 | XMS_ITS | Encounter Summary ---
Author Organization [facility] Address [address] [facility] [address] [place] [address] Care Team Providers Care Business Analysis Consultant Name Role Phone Unavailable Primary Care Provider Unavailabl e Reason for Visit * Reason Onset Date Comments needs appt 06/01/2022 Encounter Details Date Type Department Care Team (Late st Contact Info) Description 06/01/2022 Telephone [facility] Family Medicine at [address] [place] [address] Chris [place] MD [address] [place] [address] [address] [place] [address] needs appt Social History Tobacco Use Types [...] Bean MD sent at 06/01/2022 3:14 PM GUM MAKER ----- Regarding: Need annual physical in 3 months Need annual physical in 3 months MAKER MAKER documented in this encounter Plan of Treatment Not on file documented as of this encounter Visit Diagnoses Not on filedocumented in this encounter
--- OUTSIDE RECORDS SUMMARY | 2024-04-05 06:02 | XMS_ITS | Encounter Summary ---
Author Organization [facility] Healthcare Address [address] [place] [address] Care Team Providers Care Waste Specialist Name Role Phone Travis Durand MD Primary Care Provider [phone] Encounter Details Date Type Department Care Team (Latest Contact Info) Description 12/22/2021 - 12/22/2021 11:59 PM CDT Hospital Encounter [facility] - Imaging [phone] Discharge Disposition: Discharge to home or self [...] hydroxide simethicone-diphen hydramine-lidocain e-nystatin (MAGIC MOUTHWASH) suspension 1-1-9-1Indications :Stomatitis Swish and swallow 10 mL 4 [...] MD IMG MRI PROCEDURES Final Resu lt RAD_PACS_OUTSIDE_FILM_[facility] documented in this encounter Visit Diagnoses Not on filedocumented in this encounter Care Teams Waste Specialist Relationship Specialty Start Date End Date Travis Durand MD PCP - General Family Medicine 09/16/19 05/31/22 documented as of this encounter
--- OUTSIDE RECORDS SUMMARY | 2024-04-05 06:02 | XMS_ITS | Encounter Summary ---
Author Organization [facility] Healthcare Address [address] [place] [address] Care Team Providers Care Veneer Glue Jointer Feedback Name Role Phone Travis Durand MD Primary Care Provider [phone] Encounter Details Date Type Department Care Team (Latest Contact Info) Description 11/18/2021 - 11/18/2021 11:59 PM CDT Hospital Encounter [facility] - Imaging [phone] Discharge Disposition: Discharge to home or self [...] hydroxide simethicone-diphen hydramine-lidocain e-nystatin (MAGIC MOUTHWASH) suspension 5-1-5-1Indications :Stomatitis Swish and swallow 10 mL 4 [...] MD IMG XR PROCEDURES Final Resul t RAD_PACS_OUTSIDE_FILM_[facility] documented in this encounter Visit Diagnoses Not on filedocumented in this encounter Care Teams Veneer Glue Jointer Feedback Relationship Specialty Start Date End Date Travis Durand MD PCP - General Family Medicine 09/16/19 05/31/22 documented as of this encounter
--- OUTSIDE RECORDS SUMMARY | 2024-04-05 06:02 | XMS_ITS | Encounter Summary ---
Author Organization [facility] Healthcare Address [address] [place] [address] Care Team Providers Care Gauge And Instrument Inspector Name Role Phone Unavailable Primary Care Provider Unavailabl e Encounter Details Date Type Department Care Team (Late st Contact Info) Description 07/26/2022 Telephone [facility] Operating Room [facility] [place] [address] Denisha Hameed Social History Tobacco [...]
--- OUTSIDE RECORDS SUMMARY | 2024-04-05 06:02 | XMS_ITS | Encounter Summary ---
Author Organization [facility] Address [address] [address] Care Team Providers Care Ems Coordinator Name Role Phone Travis Durand MD Primary Care Provider [phone] Reason for Referral * MRI/CAT/PET Scan (Routine) - Closed Specialty Diagnoses / Procedures Referred By Contac t Referred To Contact Radiology Procedures MRI Thoracic Spine WO Contrast Laquita Davis MD [address] [place] [address] Phone: tel: Referral ID Status Reason Start Date Expiration Date Visits Re quested Visits Authorized [id number] Closed 05/17/2022 06/16/2023 1 1 UP OPERATOR HELPER * MRI/CAT/PET Scan (Routine) - Closed Specialty Diagnoses / Procedures Referred By Contac t Referred To Contact Radiology Procedures MRI Lumbar Spine W WO Contrast Laquita Davis MD [address] [place] [address] Phone: tel: Referral ID Status Reason Start Date Expiration Date Visits Re quested Visits Authorized [id number] Closed 05/17/2022 06/16/2023 1 1 UP OPERATOR HELPER Reason for Visit * Reason Comments Back Pain Leg Pain Encounter Details Date Type Department Care Team (Latest Contact Info) Description 05/16/2022 10:30 AM MAKE UP OPERATOR HELPER Office Visit [facility] [place] [address] [facility] [address] [place] [address] Ernesto Byrd MD [address] [facility] [address] [place] [address] Intervertebral disc disorder with radiculopathy of lumbar [...] 65.3 kg (144 lb) 05/16/2022 10:49 AM MAKE UP OPERATOR HELPER Height 154.9 cm (5' 1 ) 05/16/2022 10:49 AM MAKE UP OPERATOR HELPER Body Mass Index 27.21 05/16/2022 10:49 AM MAKE UP OPERATOR HELPER documented in this encounter Progress Notes * Myah Reinoso RN - 05/16/2022 10:30 AM CST RN - NEW PATIENT ENCOUNTER CC: Back Pain Onset Date: Symptoms: Smoking Status: Current Treating MD'S: Dr. Durand (PCP), Dr. Prasad (Pain Mgnt), Treatment: PT, Pain Mgnt 02/04- Jeb L5-S1 TF, add'l injection 04/05 L4-5 L5-S1, Tests: MRI, Work Status: Part- Time ROS Oswestry: PHQ: UP OPERATOR HELPER * Samantha Sotomayor I. 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 Musculoskeletal: Positive for back pain. Neurological: Positive for tingling and weakness. 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 [...] benefit from a re-exploration and decompression at L5-D4qggoc her symptoms, but the amount improvement that [...] office for clarification. Ernesto Byrd MD, FAANS UP OPERATOR HELPER documented in this encounter Miscellaneous Notes * Assessment & Plan Note - Ernesto Byrd MD - 05/16/2022 4:49 PM MAKE UP OPERATOR HELPER Associated Problem(s): Intervertebral disc disorder with radiculopathy [...] benefit from a re-exploration and decompression at L5-C5msybc her symptoms, but the amount improvement that she would see postoperatively is uncertain. We will speak to her by phone once the films have been reviewed. UP OPERATOR HELPER documented in this encounter Plan of Treatment [...] Primary documented in this encounter Care Teams Ems Coordinator Relationship Specialty Start Date End Date Travis Durand MD PCP - General Family Medicine 09/16/19 05/31/22 documented as of this encounter
--- OUTSIDE RECORDS SUMMARY | 2024-04-05 06:02 | XMS_ITS | Encounter Summary ---
Author Organization [facility] Healthcare Address [address] [place] [address] Care Team Providers Care News Reporter Name Role Phone Travis Durand MD Primary Care Provider [phone] Encounter Details Date Type Department Care Team (Latest Contact Info) Description 12/28/2021 - 12/28/2021 11:59 PM CDT Hospital Encounter [facility] - Imaging [phone] Discharge Disposition: Discharge to home or self [...] hydroxide simethicone-diphen hydramine-lidocain e-nystatin (MAGIC MOUTHWASH) suspension 8-1-3-1Indications :Stomatitis Swish and swallow 10 mL 4 [...] on filedocumented in this encounter Care Teams News Reporter Relationship Specialty Start Date End Date Travis Durand MD PCP - General Family Medicine 09/16/19 05/31/22 documented as of this encounter
--- OUTSIDE RECORDS SUMMARY | 2024-04-05 06:02 | XMS_ITS | Encounter Summary ---
Author Organization [facility] Healthcare Address [address] [place] [address] Care Team Providers Care Jumpbasting Machine Operator Name Role Phone Unavailable Primary Care Provider Unavailabl e Encounter Details Date Type Department Care Team (Late st Contact Info) Description 07/27/2022 Telephone [facility] Operating Room [facility] [place] [address] Denisha Hameed Social History Tobacco [...]
--- OUTSIDE RECORDS SUMMARY | 2024-04-05 06:02 | XMS_ITS | Encounter Summary ---
Author Organization [facility] Address [address] [address] Care Team Providers Care Instructional Support Technician Name Role Phone Travis Durand MD Primary Care Provider [phone] Reason for Visit * Reason Onset Date Comments Request Call Back 08/01/2021 Encounter Details Date Type Department Care Team (Late st Contact Info) Description 08/01/2021 Telephone [facility] Family Medicine [address] [place] [address] Travis Durand MD [address] [place] [address] [address] [place] [address] Request Call Back (/) Social History Tobacco [...] she asked for a name of an drywall application supervisor * Telephone Encounter - Kyara Nj MA - 08/01/2021 4:42 PM CDT lvm for cb re ER visit documented in this encounter Plan of Treatment Not on file documented as of this encounter Visit Diagnoses Not on filedocumented in this encounter Care Teams Instructional Support Technician Relationship Specialty Start Date End Date rTavis Durand MD PCP - General Family Medicine 09/16/19 05/31/22 documented as of this encounter
--- OUTSIDE RECORDS SUMMARY | 2024-04-05 06:03 | XMS_ITS | Encounter Summary ---
Author Organization [facility] Address [address] [address] Care Team Providers Care Fire Engine Operator Name Role Phone Travis Durand MD Primary Care Provider Reason for Visit * Reason Onset Date Comments Sore Throat 05/26/2021 Encounter Details Date Type Department Care Team (Late st Contact Info) Description 05/26/2021 Telephone [facility] Family Medicine [address] [place] [address] Travis Durand MD [address] [place] [address] [address] [place] [address] Sore Throat Social History Tobacco Use Types [...] 05/26/2021 1:07 PM CST nette Durand sent ET RESEARCH MANAGER * Telephone Encounter - Gaby Jurado - 05/26/2021 12:52 PM CST Sore throat, painful to swollow No other symptoms Son was dx with strep throat Would like a script called out Rachel--- Renny Rene ET RESEARCH MANAGER documented in this encounter Plan of Treatment Not on file documented as of this encounter Visit Diagnoses Not on filedocumented in this encounter Care Teams Fire Engine Operator Relationship Specialty Start Date End Date Travis Durand MD PCP - General Family Medicine 09/16/19 05/31/22 documented as of this encounter
--- OUTSIDE RECORDS SUMMARY | 2024-04-05 06:03 | XMS_ITS | Encounter Summary ---
Author Organization [facility] Address [address] [address] Care Team Providers Care Clinical Data Manager Name Role Phone Travis Durand MD Primary Care Provider [phone] Encounter Details Date Type Department Care Team (Late st Contact Info) Description 09/09/2020 Telephone [facility] Family Medicine [address] [place] [address] Travis Durand MD [facility] [address] [place] [address] Social History Tobacco Use Types Packs/Day Years [...] sleep documented in this encounter Care Teams Clinical Data Manager Relationship Specialty Start Date End Date Travis Durand MD PCP - General Family Medicine 09/16/19 05/31/22 documented as of this encounter
--- OUTSIDE RECORDS SUMMARY | 2024-04-05 06:03 | XMS_ITS | Encounter Summary ---
Author Organization [facility] Medical [facility] Address [address] [address] Care Team Providers Care Retail Sales Clerk Name Role Phone Travis Durand MD Primary Care Provider [phone] Reason for Visit * Reason Comments Anxiety/Depression Encounter Details Date Type Department Care Team (Late st Contact Info) Description 06/30/2020 9:00 AM CDT Telemedicine [facility] Family Medicine [address] [place] [address] Rivas Salcedo, KRISTAN [address] [facility] [address] [address] Major depressive disorder with single episode, in [...] took place via real-time video connection with [employer]. During the visit, I was located in the office and the patient was located at home [facility]. The patient visit started at 10:10 a.m. and ended at 10:20 a.m.. The patient has been informed that the visit may not be secure and acknowledged the information. I have explained the option of participating in a telephone or video visit during the [facility] public [facility] emergency to the patient. After [...] unspecified documented in this encounter Care Teams Retail Sales Clerk Relationship Specialty Start Date End Date Travis Durand MD PCP - General Family Medicine 09/16/19 05/31/22 documented as of this encounter
--- OUTSIDE RECORDS SUMMARY | 2024-04-05 06:03 | XMS_ITS | Encounter Summary ---
Author Organization [facility] Healthcare Address [address] [place] [address] Care Team Providers Care Nursing Program Chair Name Role Phone Travis Durand MD Primary Care Provider Reason for Referral * Diagnostic Imaging (Routine) - Closed Specialty Diagnoses / Procedures Referred By Contac t Referred To Contact Diagnoses Cough Procedures XR Chest Pa Lateral 2 Vw Travis Durand MD Phone: tel: fax: [address] [address] Referral ID Status Reason Start Date Expiration Date Visits Re quested Visits Authorized [id number] Closed 05/21/2020 06/20/2021 1 1 SFER PROFESSOR Encounter Details Date Type Department Care Team (Late st Contact Info) Description 05/21/2020 9:15 AM TRANSFER PROFESSOR Hospital Encounter [facility] INTERIM Travis Durand MD [address] [place] [address] Cough Social History Tobacco Use Types [...] hydroxide simethicone-diph enhydramine-lido loi-nystatin (MAGIC MOUTHWASH) suspension 3-2-4-1Indicatio ns:Stomatitis Swish and swallow 10 mL 4 [...] Read Routine (OP Routine) 05/21/2020 9:18 AM TRANSFER PROFESSOR Cough documented in this encounter Results * XR Chest Pa Lateral 2 Vw (05/21/2020 9:18 AM TRANSFER PROFESSOR) Anatomical Region Laterality Modality Body, Chest N/A Radiographic Gabby ging 05/22/2020 9:22 AM TRANSFER PROFESSOR Narrative 05/22/2020 9:22 AM TRANSFER PROFESSOR Patient Name: GERARDO WHITT ?Ordering Dr: Travis Durand MD ?? D.O.B: 1975 ? Exam Date: 05/21/20 ?? 09 ?? Age: 45 ?Sex: Female ? MR#: [id number] ?? Loc: ? RADIOLOGY REPORT ?? Order #[id number] ?? Radiology ? Chest 2 Views ? [...] 9:22 AM ?? T: ? Report ID: [id number] ?? Reading Location: ??[id number] ? REPORT ELECTRONICALLY SIGNED IN OTHER VENDOR SYSTEM ?? Resulting Agency Comment O Procedure Note Rogerio Frazier II, - 05/22/2020 Patient Name: GERARDO WHITT Dr: Travis Durand MD, D.O.B: 1975 Exam Date: 05/21/20917 Age: 45 Sex: Female MR#: [id number] Loc: RADIOLOGY REPORT Order #[id number] Radiology Chest 2 Views Signed EXAM DESCRIPTION: [...] signed by Rogerio AYALA T: Report ID: [id number] Reading Location: [place] [address] REPORT ELECTRONICALLY SIGNED IN OTHER VENDOR SYSTEM Travis Durand MD IMG XR PROCEDURES Final Result documented in this encounter Visit Diagnoses Diagnosis Cough documented in this encounter Care Teams Nursing Program Chair Relationship Specialty Start Date End Date Travis Durand MD PCP - General Family Medicine 09/16/19 05/31/22 documented as of this encounter
--- OUTSIDE RECORDS SUMMARY | 2024-04-05 06:03 | XMS_ITS | Encounter Summary ---
Author Organization [facility] Address [address] [address] Care Team Providers Care Drill Doctor Name Role Phone Travis Durand MD Primary Care Provider [phone] Reason for Visit * Reason Onset Date Comments over due labs 04/11/2021 Encounter Details Date Type Department Care Team (Late st Contact Info) Description 04/11/2021 Telephone [facility] Family Medicine [address] [place] [address] Travis Durand MD [address] [place] [address] [address] [place] [address] over due labs Social History Tobacco Use [...] Over due mammogram my chart letter sent DATABASE DEVELOPER documented in this encounter Plan of Treatment Not on file documented as of this encounter Visit Diagnoses Not on filedocumented in this encounter Care Teams Drill Doctor Relationship Specialty Start Date End Date Travis Durand MD PCP - General Family Medicine 09/16/19 05/31/22 documented as of this encounter
--- OUTSIDE RECORDS SUMMARY | 2024-04-05 06:03 | XMS_ITS | Encounter Summary ---
Author Organization [facility] Address [address] [address] Care Team Providers Care Levers Lace Machine Operator Name Role Phone Travis Durand MD Primary Care Provider [phone] Reason for Visit * Reason Comments Anxiety causing insomnia Facial Swelling w/ some sob at night hormonal issues Encounter Details Date Type Department Care Team (Latest Contact Info) Description 09/08/2020 9:15 AM CDT Office Visit [facility] Family Medicine [address] [place] [address] Travis Durand MD [address] [place] [address] Primary insomnia (Primary Dx); Anxiety; Lumbar back [...] breast documented in this encounter Care Teams Levers Lace Machine Operator Relationship Specialty Start Date End Date Travis Durand MD PCP - General Family Medicine 09/16/19 05/31/22 documented as of this encounter
--- OUTSIDE RECORDS SUMMARY | 2024-04-05 06:03 | XMS_ITS | Encounter Summary ---
Author Organization [facility] Medical [facility] Address [address] [address] Care Team Providers Care Quality Control Projectionist Name Role Phone Travis Durand MD Primary Care Provider [phone] Encounter Details Date Type Department Care Team (Late st Contact Info) Description 06/27/2021 Telephone [facility] Family Medicine [address] [place] [address] Travis Durand MD [facility] [address] [place] [address] Social History Tobacco Use Types Packs/Day Years [...] Patient needs topamax and amitriptyline refilled at [facility] documented in this encounter Plan of [...] documented as of this encounter Care Teams Quality Control Projectionist Relationship Specialty Start Date End Date Travis Durand MD PCP - General Family Medicine 09/16/19 05/31/22 documented as of this encounter
--- OUTSIDE RECORDS SUMMARY | 2024-04-05 06:03 | XMS_ITS | Encounter Summary ---
Author Organization [facility] Medical Group Address [address] [address] Care Team Providers Care Boat Joiner Helper Name Role Phone Travis Durand MD Primary Care Provider [phone] Encounter Details Date Type Department Care Team (Late st Contact Info) Description 04/06/2021 Orders Only [facility] Family Medicine [address] [place] [address] Travis Durand MD [address] [place] [address] [address] [place] [address] Social History Tobacco Use Types Packs/Day Years [...] on filedocumented in this encounter Care Teams Boat Joiner Helper Relationship Specialty Start Date End Date Travis Durand MD PCP - General Family Medicine 09/16/19 05/31/22 documented as of this encounter
--- OUTSIDE RECORDS SUMMARY | 2024-04-05 06:03 | XMS_ITS | Encounter Summary ---
Author Organization [facility] Address [address] [address] Care Team Providers Care Linux Solaris Administrator Name Role Phone Travis Durand MD Primary Care Provider [phone] Reason for Visit * Reason Onset Date Comments overdue results 04/20/2021 Encounter Details Date Type Department Care Team (Late st Contact Info) Description 04/20/2021 Telephone [facility] Family Medicine [address] [place] [address] Travis Durand MD [address] [place] [phone] overdue results Social History Tobacco Use Types [...] Sayra Her MA - 04/20/2021 12:26 PM TELESALES ADVISOR Overdue labs, my chart letter sent SALES ADVISOR documented in this encounter Plan of Treatment Not on file documented as of this encounter Visit Diagnoses Not on filedocumented in this encounter Care Teams Linux Solaris Administrator Relationship Specialty Start Date End Date Travis Durand MD PCP - General Family Medicine 09/16/19 05/31/22 documented as of this encounter
--- OUTSIDE RECORDS SUMMARY | 2024-04-05 06:03 | XMS_ITS | Encounter Summary ---
Author Organization [facility] Address [address] [address] Care Team Providers Care Interior Plant Caretaker Name Role Phone Travis Durand MD Primary Care Provider [phone] Reason for Visit * Reason Comments Insomnia shes running short o n elavil, wants to increase her med Encounter Details Date Type Department Care Team (Late st Contact Info) Description 12/17/2020 10:15 AM CDT Telemedicine [facility] Medical [facility] Family Medicine [address] [place] [address] Travis Durand MD [address] [place] [address] Primary insomnia (Primary Dx); Migraine without aura [...] took place via real-time video connection with [employer]. During the visit, I was located in the office and the patient [facility]. The patient visit started at [...] 06/01/2022 added in this encounter Care Teams Interior Plant Caretaker Relationship Specialty Start Date End Date Travis Durand MD PCP - General Family Medicine 09/16/19 05/31/22 documented as of this encounter
--- OUTSIDE RECORDS SUMMARY | 2024-04-05 06:03 | XMS_ITS | Encounter Summary ---
Author Organization [facility] Address [address] [address] Care Team Providers Care Block Piler Name Role Phone Travis Durand MD Primary Care Provider [phone] Reason for Referral * Diagnostic Imaging (Routine) - Closed Specialty Diagnoses / Procedures Referred By Contac t Referred To Contact Diagnoses Cough Procedures XR Chest Pa Lateral 2 Vw Travis Durand MD Phone: tel: fax: [facility] [address] [place] [address] Referral ID Status Reason Start Date Expiration Date Visits Re quested Visits Authorized [id number] Closed 05/21/2020 06/20/2021 1 1 ODONTIST Reason for Visit * Reason Comments Cough getting worse Rash belly and back Fatigue Encounter Details Date Type Department Care Team (Late st Contact Info) Description 05/21/2020 8:30 AM ORTHODONTIST Office Visit [facility] Family Medicine [address] [place] [address] Travis Durand MD [address] [place] [phone] Disseminated herpes zoster (Primary Dx); Anxiety; Cough; [...] Comments Blood Pressure 128/92 05/21/2020 8:35 AM ORTHODONTIST Pulse 118 05/21/2020 8:35 AM ORTHODONTIST Temperature 37.1 ??C (98.8 ??F) 05/21/2020 8:35 AM CS T Respiratory Rate 19 05/21/2020 8:35 AM ORTHODONTIST Oxygen Saturation 97% 05/21/2020 8:35 AM ORTHODONTIST Inhaled Oxygen Concentration - - Weight 59.6 kg (131 lb 6.4 oz) 05/21/2020 8:35 A M ORTHODONTIST Height 154.9 cm (5' 1 ) 05/21/2020 8:35 AM ORTHODONTIST Body Mass Index 24.83 05/21/2020 8:35 AM ORTHODONTIST documented in this encounter Ordered Prescriptions Prescription [...] Future - TSH; Future Travis Durand MD ODONTIST documented in this encounter Plan of Treatment Not on file documented as of this encounter Procedures Procedure Name Priority Date/Time Associated Diagnosis Comments CBC WITH AUTO DIFFERENTIAL Routine 05/21/2020 10:24 AM ORTHODONTIST Fatigue, unspecified type TSH Routine 05/21/2020 10:24 AM ORTHODONTIST Fatigue, unspecified type documented in this encounter Results * TSH (05/21/2020 10:24 AM ORTHODONTIST) TSH 1.50 0.27 - 4.20 uIU/mL [facility] Blood specimen (specimen) 05/21/2020 10:24 AM ORTHODONTIST 05/21/2020 10:55 AM ORTHODONTIST Narrative Resulting Agency Comment CLI us Travis Durand MD LAB BLOOD ORDERABLES Final Resu lt [facility] [address] [place], [place] [address] [phone] * (ABNORMAL) CBC with auto differential (05/21/2020 10:24 AM ORTHODONTIST) Pathologist [facility] WBC 5.1 3.8 - 9.9 X10 3/ul [facility] RBC 4.00 3.90 - 5.20 x10 6/ul [facility] Hemoglobin 13.0 11.9 - 15.5 g/dL [facility] Hct 40.1 35.6 - 45.5 % [facility] MCV 100.3(H) 81.3 - 96.4 fl [facility] MCH 32.5 27.1 - 33.3 pg [facility] MCHC 32.4 32.3 - 35.7 g/dl [facility] RDW 12.8 11.1 - 14.9 % [facility] Plt Count 292 150 - 400 x10 3/ul [facility] MPV 9.2 9.1 - 12.3 fl [facility] Neut % 53.3 % [facility] Immature Gran % 0.2 % [facility] Lymph % 33.2 % [facility] Blanco % 9.7 % [facility] Eos % 2.6 % [facility] AUTO BASO % 1.0 % [facility] NEUTROPHIL ABS # 2.7 1.7 - 6.5 x10 3/ul [facility] Immature Gran # 0.0 0.0 - 0.1 x10 3/ul [facility] Absolute Lymphs (auto) 1.7 0.8 - 3.3 x10 3/ul [facility] Absolute Monos (auto) 0.5 0.2 - 0.8 x10 3/ul [facility] Absolute Eos (auto) 0.1 0.0 - 0.5 x10 3/ul [facility] BASOPHIL ABS # 0.1 0.0 - 0.1 x10 3/ul [facility] Nucleat RBC Rel Count 0.0 #/100WBC [facility] NRBC abs 0.00 0.00 - 0.01 x10 3/ul [facility] Absolute Neutrophils 2,700 200 - 8,000 /ul [facility] Blood specimen (specimen) 05/21/2020 10:24 AM ORTHODONTIST 05/21/2020 10:55 AM ORTHODONTIST Narrative Resulting Agency Comment CLI us Travis Durand MD LAB BLOOD ORDERABLES Final Resu lt Performing Organization Address [facility]/State/[facility] [place] Phone Number [address] [address], [facility] [phone] * XR Chest Pa Lateral 2 Vw (05/21/2020 9:18 AM ORTHODONTIST) Anatomical Region Laterality Modality Body, Chest N/A Radiographic Gabby ging 05/22/2020 9:22 AM ORTHODONTIST Narrative 05/22/2020 9:22 AM ORTHODONTIST Patient Name: GERARDO WHITT ?Ordering Dr: Travis Durand MD ?? D.O.B: 1975 ? Exam Date: 05/21/20 ?? 09 ?? Age: 45 ?Sex: Female ? MR#: [id number] ?? Loc: ? RADIOLOGY REPORT ?? Order #[id number] ?? Radiology ? Chest 2 Views ? [...] 9:22 AM ?? T: ? Report ID: [id number] ?? Reading Location: ??[id number] ? REPORT ELECTRONICALLY SIGNED IN OTHER VENDOR SYSTEM ?? Resulting Agency Comment O Procedure Note Rogerio Frazier II, - 05/22/2020 Patient Name: GERARDO WHITT Dr: Travis Durand MD D.O.B: 1975 Exam Date: 05/21/20917 Age: 45 Sex: Female MR#: [id number] Loc: RADIOLOGY REPORT Order #[id number] Radiology Chest 2 Views Signed EXAM DESCRIPTION: [...] signed by Rogerio AYALA T: Report ID: [id number] Reading Location: [place] [address] REPORT ELECTRONICALLY SIGNED IN OTHER VENDOR SYSTEM [...] 08/03/2022 added in this encounter Care Teams Block Piler Relationship Specialty Start Date End Date Travis Durand MD PCP - General Family Medicine 09/16/19 05/31/22 documented as of this encounter
--- OUTSIDE RECORDS SUMMARY | 2024-04-05 06:03 | XMS_ITS | Encounter Summary ---
Author Organization [facility] Address [address] [address] Care Team Providers Care French Teacher Name Role Phone Travis Durand MD Primary Care Provider [phone] Reason for Visit * Reason Onset Date Comments Call Back 04/05/2021 Encounter Details Date Type Department Care Team (Late st Contact Info) Description 04/05/2021 Telephone [facility] Family Medicine [address] [place] [address] Travis Durand MD [address] [place] [address] [address] [place] [address] Call Back Social History Tobacco Use Types [...] CST lvm for cb wanting cxr at [place] Spoke to pt Order faxed to [facility] noemi eldridge [phone] fax OR SPECIALIST OR SPECIALIST documented in this encounter Plan of Treatment Not on file documented as of this encounter Visit Diagnoses Diagnosis Pleurisy- Primary Pleurisy without mention of effusion or current tuberculosis documented in this encounter Care Teams French Teacher Relationship Specialty Start Date End Date Travis Durand MD PCP - General Family Medicine 09/16/19 05/31/22 documented as of this encounter
--- OUTSIDE RECORDS SUMMARY | 2024-04-05 06:03 | XMS_ITS | Encounter Summary ---
Author Organization [facility] Address [address] [address] Care Team Providers Care Legal Internship Name Role Phone Travis Durand MD Primary Care Provider [phone] Encounter Details Date Type Department Care Team (Late st Contact Info) Description 05/05/2021 Telephone [facility] Family Medicine [address] [place] [address] Travis Durand MD [facility] [address] [place] [address] Social History Tobacco Use Types Packs/Day Years [...] MA - 05/05/2021 9:21 AM CST error CH INSPECTOR CH INSPECTOR documented in this encounter Plan of Treatment Not on file documented as of this encounter Visit Diagnoses Not on filedocumented in this encounter Care Teams Legal Internship Relationship Specialty Start Date End Date Travis Durand MD PCP - General Family Medicine 09/16/19 05/31/22 documented as of this encounter
--- OUTSIDE RECORDS SUMMARY | 2024-04-05 06:03 | XMS_ITS | Encounter Summary ---
Author Organization [facility] Address [address] [address] Care Team Providers Care Order Puller Name Role Phone Travis Durand MD Primary Care Provider [phone] Reason for Visit * Reason Comments Follow-up insomnia Chest Wall Pain bilateral Encounter Details Date Type Department Care Team (Late st Contact Info) Description 03/21/2021 9:30 AM RAILWAY EQUIPMENT OPERATOR Office Visit [facility] Medical [facility] Family Medicine [address] [place] [address] Travis Durand MD [address] [place] [address] [address] [place] [address] Pleurisy (Primary Dx); Migraine without aura and [...] Comments Blood Pressure 104/68 03/21/2021 10:44 AM RAILWAY EQUIPMENT OPERATOR Pulse 87 03/21/2021 10:44 AM RAILWAY EQUIPMENT OPERATOR Temperature 36 ??C (96.8 ??F) 03/21/2021 10:44 AM RAILWAY EQUIPMENT OPERATOR Respiratory Rate 18 03/21/2021 10:44 AM RAILWAY EQUIPMENT OPERATOR Oxygen Saturation 98% 03/21/2021 10:44 AM RAILWAY EQUIPMENT OPERATOR Inhaled Oxygen Concentration - - Weight 65.8 kg (145 lb) 03/21/2021 10:44 AM RAILWAY EQUIPMENT OPERATOR Height 154.9 cm (5' 1 ) 03/21/2021 10:44 AM RAILWAY EQUIPMENT OPERATOR Body Mass Index 27.4 03/21/2021 10:44 AM RAILWAY EQUIPMENT OPERATOR documented in this encounter Progress Notes [...] continue the metoprolol xl. Travis Durand MD WAY EQUIPMENT OPERATOR documented in this encounter Plan of [...] 8:12 AM CDT Performed at: ??01 - [facility] ??[id number] Electrical Contacts Adjuster: Zhao Pugh PhD, Phone: ??[phone] Travis Durand MD LAB BLOOD ORDERABLES Final [facility] - 01 * TSH (07/04/2021 11:33 AM CDT) TSH 0.932 0.450 - 4.500 uIU/mL [facility] - 01 Blood specimen (specimen) 07/04/2021 11:33 AM CDT 07/04/2021 Narrative [facility] - 07/05/2021 8:12 AM CDT Performed at: ??[address] ??[id number] Electrical Contacts Adjuster: Zhao Pugh PhD, Phone: ??[phone] us Travis Durand MD LAB BLOOD ORDERABLES [...] AM CDT Performed at: ??01 - [facility] [address] ??[id number] Electrical Contacts Adjuster: Zhao Pugh PhD, Phone: ??[phone] us Travis Durand MD LAB BLOOD ORDERABLES [...] AM CDT Performed at: ??01 - [facility] [address] ??[id number] Electrical Contacts Adjuster: Zhao Pugh PhD, Phone: ??[phone] us Travis Durand MD LAB BLOOD ORDERABLES [...] For 1 doseIndications:Pleurisy Given 03/21/2021 11:25 AM RAILWAY EQUIPMENT OPERATOR 60 mg Right Dorsogluteal/Butto ck documented [...] 08/01/2022 added in this encounter Care Teams Order Puller Relationship Specialty Start Date End Date Travis Durand MD PCP - General Family Medicine 09/16/19 05/31/22 documented as of this encounter
--- OUTSIDE RECORDS SUMMARY | 2024-04-05 06:04 | XMS_ITS | Encounter Summary ---
Author Organization [facility] Address [address] [address] Care Team Providers Care Assembly Machine Offbearer Name Role Phone Ashley Lamar MD Primary Care Provider [phone] Reason for Visit * Reason Onset Date Comments Illness 09/05/2019 Encounter Details Date Type Department Care Team (Late st Contact Info) Description 09/05/2019 Telephone [facility] Family Medicine [address] [place] [address] [place] [address] [place] [address] [address] Illness Social History Tobacco Use Types Packs/Day [...] hydroxide simethicone-diphen hydramine-lidocain e-nystatin (MAGIC MOUTHWASH) suspension 7-0-1-1Indications :Stomatitis Swish and swallow 10 mL 4 [...] 09/13/2019 8:10 AM CDT Performed at: ??[address] ??[id number] Customer Success Director: Zhao Pugh PhD, Phone: ??[phone] Vira [facility] LAB BLOOD ORDERABLES Fin al Result Performing Organization Address [facility] de Phone Number [facility] - 01 * T4, free (09/12/2019 10:34 AM CDT) T4,Free(Direct) 0.84 0.82 - 1.77 ng/dL [facility] - 01 Blood specimen (specimen) 09/12/2019 10:34 AM CDT 09/12/2019 Narrative [facility] - 09/13/2019 8:10 AM CDT Performed at: ??[address] ??[id number] Customer Success Director: Zhao Pugh PhD, Phone: ??[phone] Vira R[facility] LAB BLOOD ORDERABLES Fin al Result Performing Organization Address [facility]/ZIP Co de Phone Number [facility] - 01 * TSH (09/12/2019 10:34 AM CDT) TSH 1.310 0.450 - 4.500 uIU/mL [facility] - 01 Blood specimen (specimen) 09/12/2019 10:34 AM CDT 09/12/2019 Narrative [facility] - 09/13/2019 8:10 AM CDT Performed at: ??01 - [facility] [address] ??[id number] Customer Success Director: Zhao Pugh PhD, Phone: ??[phone] Vira [facility] LAB BLOOD ORDERABLES Fin al [...] AM CDT Performed at: ??01 - [facility] [address] ??[id number] Customer Success Director: Zhao Pugh PhD, Phone: ??[phone] us Vira [facility] LAB BLOOD ORDERABLES Fin [...] AM CDT Performed at: ??01 - [facility] [address] ??[id number] Customer Success Director: Zhao Pugh PhD, Phone: ??[phone] Vira [facility] LAB BLOOD ORDERABLES Fin al Result [facility] - 01 documented in this encounter Visit Diagnoses Diagnosis Loss of taste- Primary Disturbances of sensation of smell and taste Stomatitis Stomatitis and mucositis, unspecified documented in this encounter Discontinued Medications Medication Sig Discontinue Reason Start Date End Da te al & mag hydroxide simethicone-diphenhydram ise-dtyfdumfw-uxbuimvb (MAGIC MOUTHWASH) suspension 2-9-4-1Indications:Stoma titis Swish and swallow 10 mL 4 (four) times a day Reorder 03/17/2019 09/05/2019 documented as of this encounter Care Teams Assembly Machine Offbearer Relationship Specialty Start Date End Date Ashley Lamar MD PCP - General 08/09/19 09/15/19 documented as of this encounter
--- OUTSIDE RECORDS SUMMARY | 2024-04-05 06:04 | XMS_ITS | Encounter Summary ---
Author Organization [facility] Address [address] [address] Care Team Providers Care State Editor Name Role Phone Travis Durand MD Primary Care Provider [phone] Reason for Visit * Reason Onset Date Comments COVID 04/05/2020 Encounter Details Date Type Department Care Team (Late st Contact Info) Description 04/05/2020 Telephone [facility] Medical [facility] Family Medicine [address] [place] [address] Travis Durand MD [address] [place] [address] [address] [place] [address] COVID Social History Tobacco Use Types Packs/Day [...] Ladarius LIZAMA protocol rx sent, pt aware WASHING MACHINE OPERATOR * Telephone Encounter - Yaneli Cameron - 04/05/2020 3:18 PM CST Has covid and has a headache and body chills is there anything you can give her ? WASHING MACHINE OPERATOR documented in this encounter Plan of Treatment Not on file documented as of this encounter Visit Diagnoses Not on filedocumented in this encounter Care Teams State Editor Relationship Specialty Start Date End Date Travis Durand MD PCP - General Family Medicine 09/16/19 05/31/22 documented as of this encounter
--- OUTSIDE RECORDS SUMMARY | 2024-04-05 06:04 | XMS_ITS | Encounter Summary ---
Author Organization [facility] Address [address] [address] Care Team Providers Care Take Out Waiter/Waitress Name Role Phone Travis Durand MD Primary Care Provider [phone] Reason for Visit * Reason Comments Follow-up anxiety Encounter Details Date Type Department Care Team (Late st Contact Info) Description 03/17/2020 10:30 AM GRADUATE STUDENT INSTRUCTOR Telemedicine [facility] Medical [facility] Family Medicine [address] [place] [address] Travis Durand MD [address] [place] [address] [address] [place] [address] Patient left without being seen (Primary Dx) [...] patient is not nervous/anxious. Physical Exam Assessment/Plan UATE STUDENT INSTRUCTOR documented in this encounter Plan of Treatment Not on file documented as of this encounter Visit Diagnoses Diagnosis Patient left without being seen- Primary Surgical or other procedure not carried out because of patient's decision documented in this encounter Care Teams Take Out Waiter/Waitress Relationship Specialty Start Date End Date Travis Durand MD PCP - General Family Medicine 09/16/19 05/31/22 documented as of this encounter
--- OUTSIDE RECORDS SUMMARY | 2024-04-05 06:04 | XMS_ITS | Encounter Summary ---
Author Organization [facility] Address [address] [facility] [address] [place] [address] Care Team Providers Care Wide Area Network Engineer Name Role Phone Travis Durand MD Primary Care Provider [phone] Encounter Details Date Type Department Care Team (Late st Contact Info) Description 11/14/2019 Orders Only [facility] Health Information Management [address] [place] [address] Travis Durand MD [address] [place] [address] [address] [place] [address] Social History Tobacco Use Types Packs/Day Years [...] Procedure Name Priority Date/Time Associated Diagnosis Comments GI - RESULT 11/14/2019 9:17 PM CDT SCAN - PATHOLOGY 11/13/2019 documented in this encounter Results * GI - RESULT (11/14/2019 9:17 PM CDT) Anatomical Region Laterality Modality Other us Travis Durand MD Final Result * SCAN - PATHOLOGY (11/13/2019) us Travis Durand MD Edited Result - Final documented in this encounter Visit Diagnoses Not on filedocumented in this encounter Care Teams Wide Area Network Engineer Relationship Specialty Start Date End Date Travis Durand MD PCP - General Family Medicine 09/16/19 05/31/22 documented as of this encounter
--- OUTSIDE RECORDS SUMMARY | 2024-04-05 06:04 | XMS_ITS | Encounter Summary ---
Author Organization [facility] Address [address] [address] Care Team Providers Care Rv Mechanic Name Role Phone Travis Durand MD Primary Care Provider [phone] Reason for Visit * Reason Onset Date Comments Test Results 09/23/2019 Encounter Details Date Type Department Care Team (Late st Contact Info) Description 09/23/2019 Telephone [facility] Family Medicine [address] [place] [address] Travis Durand MD [address] [place] [address] [address] [place] [address] Test Results Social History Tobacco Use Types [...] on filedocumented in this encounter Care Teams Rv Mechanic Relationship Specialty Start Date End Date Travis Durand MD PCP - General Family Medicine 09/16/19 05/31/22 documented as of this encounter
--- OUTSIDE RECORDS SUMMARY | 2024-04-05 06:04 | XMS_ITS | Encounter Summary ---
Author Organization [facility] Address [address] [address] Care Team Providers Care Lawn Caretaker Name Role Phone Travis Durand MD Primary Care Provider [phone] Reason for Visit * Reason Onset Date Comments Appointment 02/10/2020 Encounter Details Date Type Department Care Team (Late st Contact Info) Description 02/10/[address] [facility] Family Medicine [address] [place] [address] Travis Durand MD [address] [place] [address] [address] [place] [address] Appointment Social History Tobacco Use Types Packs/Day Years [...] * Telephone Encounter - Gaby Jurado - 02/11/2020 8:28 AM CDT Appt made for 02/13/2020 * Telephone Encounter - Gaby Jurado - 02/10/2020 4:43 PM CDT LM for patient to call office * Telephone Encounter - Kyara Nj MA - 02/10/2020 4:08 PM CDT Pt lvm to refill buspar Pt needs appt, please call to schedule documented in this encounter Plan of Treatment Not on file documented as of this encounter Visit Diagnoses Not on filedocumented in this encounter Care Teams Lawn Caretaker Relationship Specialty Start Date End Date Travis Durand MD PCP - General Family Medicine 09/16/19 05/31/22 documented as of this encounter
--- OUTSIDE RECORDS SUMMARY | 2024-04-05 06:04 | XMS_ITS | Encounter Summary ---
Author Organization [facility] Medical Group Address [address] [address] Care Team Providers Care Dock Loader Name Role Phone Travis Durand MD Primary Care Provider [phone] Reason for Visit * Reason Onset Date Comments Med Refill 09/16/2019 Encounter Details Date Type Department Care Team (Late st Contact Info) Description 09/16/2019 Telephone [facility] Family Medicine [address] [place] [address] Vira Josue PA [address] [facility] [address] [address] Med Refill Social History Tobacco Use Types [...] 8:11 AM CDT Performed at: ??01 - [facility] ??[id number] Placement Secretary: Zhao Pugh PhD, Phone: ??[phone] Vira [facility] BLOOD ORDERABLES Fin al Result [facility] - 01 * Ferritin (09/19/2019 10:27 AM CDT) Ferritin 132 15 - 150 ng/mL [facility] - 01 Blood specimen (specimen) 09/19/2019 10:27 AM CDT 09/19/2019 Narrative [facility] - 09/20/2019 8:11 AM CDT Performed at: ??01 - [facility] ??[id number] Placement Secretary: Zhao Pugh PhD, Phone: ??[phone] Vira [facility] BLOOD ORDERABLES Fin al Result Performing Organization Address [facility] Co de Phone Number [facility] [...] AM CDT Performed at: ??01 - [facility] [address] ??[id number] Placement Secretary: Zhao Pugh PhD, Phone: ??[phone] Vira [facility] BLOOD ORDERABLES Fin al Result Performing Organization Address City/[facility]/ZIP Co de Phone Number [facility] - 01 documented in this encounter Visit Diagnoses Diagnosis Diarrhea, unspecified type- Primary Elevated blood sugar Other abnormal glucose Low iron Unspecified iron deficiency anemia documented in this encounter Care Teams Dock Loader Relationship Specialty Start Date End Date Travis Durand MD PCP - General Family Medicine 09/16/19 05/31/22 documented as of this encounter
--- OUTSIDE RECORDS SUMMARY | 2024-04-05 06:04 | XMS_ITS | Encounter Summary ---
Author Organization [facility] Medical [facility] Address [address] [address] Care Team Providers Care Optometric Technologist Name Role Phone Travis Durand MD Primary Care Provider [phone] Reason for Visit * Reason Comments Follow-up rad Encounter Details Date Type Department Care Team (Late st Contact Info) Description 02/13/2020 11:30 AM CDT Telemedicine [facility] Medical [facility] Family Medicine [address] [place] [address] Travis Durand MD [address] [place] [address] [address] [place] [address] Situational anxiety (Primary Dx); Major depressive disorder [...] took place via real-time video connection with [employer]. During the visit, I was located in the office and the patient was located at home [facility]. The patient visit started at 1310 and ended at 1319. The patient has been informed that the visit may not be secure and acknowledged the information. I have explained the option of participating in a telephone or video visit during the [facility]-19 public [facility] emergency to the patient. After being [...] documented as of this encounter Care Teams Optometric Technologist Relationship Specialty Start Date End Date Travis Durand MD PCP - General Family Medicine 09/16/19 05/31/22 documented as of this encounter
--- OUTSIDE RECORDS SUMMARY | 2024-04-05 06:04 | XMS_ITS | Encounter Summary ---
Author Organization [facility] Medical [facility] Address [address] [facility] [address] [place] [address] Care Team Providers Care Tangled Yarn Worker Name Role Phone Travis Durand MD Primary Care Provider [phone] Encounter Details Date Type Department Care Team (Late st Contact Info) Description 09/19/2019 Orders Only [facility] Health Information Management [address] [place] [address] Scanning, Provider Social History Tobacco [...] on filedocumented in this encounter Care Teams Tangled Yarn Worker Relationship Specialty Start Date End Date Travis Durand MD PCP - General Family Medicine 09/16/19 05/31/22 documented as of this encounter
--- OUTSIDE RECORDS SUMMARY | 2024-04-05 06:04 | XMS_ITS | Encounter Summary ---
Author Organization [facility] Medical [facility] Address [address] [address] Care Team Providers Care Internal Medicine Hospitalist Name Role Phone Travis Durand MD Primary Care Provider [phone] Reason for Visit * Reason Onset Date Comments Med Refill 09/24/2019 Encounter Details Date Type Department Care Team (Late st Contact Info) Description 09/24/2019 Telephone [facility] Medical [facility] Family Medicine [address] [place] [address] Travis Durand MD [address] [place] [address] [address] [place] [address] Med Refill Social History Tobacco Use Types [...] on filedocumented in this encounter Care Teams Internal Medicine Hospitalist Relationship Specialty Start Date End Date Travis Durand MD PCP - General Family Medicine 09/16/19 05/31/22 documented as of this encounter
--- OUTSIDE RECORDS SUMMARY | 2024-04-05 06:05 | XMS_ITS | Encounter Summary ---
Author Organization [facility] Medical [facility] Address [address] [address] Care Team Providers Care Marketing Ambassador Name Role Phone Travis Durand MD Primary Care Provider [phone] Reason for Visit * Reason Onset Date Comments COVID-19 EVALUATION 08/08/2019 Encounter Details Date Type Department Care Team (Late st Contact Info) Description 08/08/2019 Telephone [facility] Family Medicine [address] [place] [address] Vira Josue PA [address] [id number] COVID-19 EVALUATION Social History Tobacco Use Types Packs/Day Years [...] Telephone Encounter - Tahira Rizvi MA - 08/08/2019 12:16 PM CDT Called COVID team and they will call pt * Telephone Encounter - Kyara Nj MA - 08/08/2019 9:01 AM CDT Pt lvm that she has not heard from COVID team Video visit with Vira on 08/05 Do you know time line on when she will be called? Can you please call pt? documented in this encounter Plan of Treatment Not on file documented as of this encounter Visit Diagnoses Not on filedocumented in this encounter Additional Health Concerns Infection Onset Date Last Indicated Resolved Time COVID: Suspected 08/06/2019 08/08/2019 08/10/2019 7:03 AM CDT documented as of this encounter Care Teams Marketing Ambassador Relationship Specialty Start Date End Date Travis Durand MD PCP - General 07/02/18 08/08/19 documented as of this encounter
--- OUTSIDE RECORDS SUMMARY | 2024-04-05 06:05 | XMS_ITS | Encounter Summary ---
Author Organization [facility] Address [address] [place] [address] Care Team Providers Care Peoplesoft Hcm Developer Name Role Phone Travis Durand MD Primary Care Provider [phone] Encounter Details Date Type Department Care Team (Late st Contact Info) Description 08/08/2019 11:08 AM CDT Hospital Encounter [facility] INTERIM Vira Josue, KRISTAN [address] [facility] [place] [address] Social History Tobacco Use Types [...] hydroxide simethicone-diphe nhydramine-lidoca ine-nystatin (MAGIC MOUTHWASH) suspension 9-4-0-1Indication s:Stomatitis Swish and swallow 10 mL 4 [...] documented as of this encounter Care Teams Peoplesoft Hcm Developer Relationship Specialty Start Date End Date Travis Durand MD PCP - General 07/02/18 08/08/19 documented as of this encounter
--- OUTSIDE RECORDS SUMMARY | 2024-04-05 06:05 | XMS_ITS | Encounter Summary ---
Author Organization [facility] Medical Group Address [address] [address] Care Team Providers Care Property And Equipment Clerk Name Role Phone Travis Durand MD Primary Care Provider Reason for Visit * Reason Comments no taste Encounter Details Date Type Department Care Team (Late st Contact Info) Description 08/06/2019 11:30 AM CDT Telemedicine [facility] Medical Group Family Medicine [address] [place] [address] Vira Josue PA [address] [facility] [address] [address] Loss of taste (Primary Dx); Exposure to [...] patient with positive or negative results. The [facility] Department will be reaching out to all [...] loosen secretions in the nose and lungs. Jlmx-xja-lcplecf cold medicines will not shorten the length of time you???re sick, but they may be helpful for the following symptoms: cough, sore throat, and nasal and sinus congestion. If you take prescription medicines, ask your healthcare provider or pharmacist which hbpx-hwd-xxyqzwn medicines are safe to use. (Note: Don't use decongestants if you have high blood pressure.) We at [facility]/ are pleased to offer this new service to our patients and strive to continually improve our care. Please take this short 2-3 minute survey related to your E-Visit and provide us with valuable feedback. Click this link: [email or web address] to complete the survey. documented in this [...] a telephone or video visit during the [facility] the patient. After [...] her. She has not been taking anything krjj-kbg-qudwkqq for sx. She does note that she [...] taste (R43.2) (Primary) - COVID-19 Coronavirus RNA VEST FINISHER; Future Given patient's medical history, exposure, and sx, will get patient tested for COVID. Advised her to self quarantine until further notice. Will call with results. Patient verbalized understanding & was agreeable plan. Advised rest, fluids. Call sx worsen anyway, new concerns arise. Discussed ER precautions. Patient agreeable plan Exposure to Covid-19 Virus (Z20.828) - COVID-19 Coronavirus RNA VEST FINISHER; Future See above documented in this encounter Plan of Treatment Not on file documented as of this encounter Procedures Procedure Name Priority Date/Time Associated Diagnosis Comments COVID-19 CORONAVIRUS RNA Routine 08/08/2019 1:09 PM CDT Loss of taste Exposure to Covid-19 Virus documented in this encounter Results * COVID-19 Coronavirus RNA VEST FINISHER (08/08/2019 1:09 PM CDT) COVID-19 Coronavirus RNA NOT DETECTED [facility] Comment: A negative result does not rule out the possibility of COVID-19 and should not be used as the sole basis for patient management decisions. Coronavirus (COVID-19) Interp SEE COMMENT [facility] Comment: Please see scanned report for additional information. Coronavirus (COVID-19) Results called to [facility] Misc Performing Lab [facility] VEST FINISHER 08/08/2019 1:09 PM CDT 08/08/2019 3:24 PM CDT Narrative Resulting Agency Comment CLI Vira [facility] MICROBIOLOGY - GENER AL ORDERABLES Final Result [facility] [address] [place] [address], [facility] [phone] documented in this encounter Visit Diagnoses Diagnosis [...] 01/03/2022 added in this encounter Care Teams Property And Equipment Clerk Relationship Specialty Start Date End Date Travis Durand MD PCP - General 07/02/18 08/08/19 documented as of this encounter
--- OUTSIDE RECORDS SUMMARY | 2024-04-05 06:05 | XMS_ITS | Encounter Summary ---
Author Organization [facility] Address [address] [address] Care Team Providers Care Stave Cutting Supervisor Name Role Phone Travis Durand MD Primary Care Provider [phone] Reason for Visit * Reason Comments Follow-up seen ENT, anahy Encounter Details Date Type Department Care Team (Late st Contact Info) Description 03/17/2019 1:45 PM SR. DIRECTOR PRODUCT MANAGEMENT Office Visit [facility] Family Medicine [address] [place] [address] Vira Josue PA [address] [address] Stomatitis (Primary Dx); Recurrent infections; Diarrhea, unspecified [...] Comments Blood Pressure 110/70 03/17/2019 3:04 PM SR. DIRECTOR PRODUCT MANAGEMENT Pulse 124 03/17/2019 3:04 PM SR. DIRECTOR PRODUCT MANAGEMENT Temperature 36.7 ??C (98 ??F) 03/17/2019 3:04 PM SR. DIRECTOR PRODUCT MANAGEMENT Respiratory Rate 18 03/17/2019 3:04 PM SR. DIRECTOR PRODUCT MANAGEMENT Oxygen Saturation 99% 03/17/2019 3:04 PM SR. DIRECTOR PRODUCT MANAGEMENT Inhaled Oxygen Concentration - - Weight 56.7 kg (125 lb) 03/17/2019 3:04 PM SR. DIRECTOR PRODUCT MANAGEMENT Height 154.9 cm (5' 1 ) 03/17/2019 3:04 PM SR. DIRECTOR PRODUCT MANAGEMENT Body Mass Index 23.62 03/17/2019 3:04 PM SR. DIRECTOR PRODUCT MANAGEMENT documented in this encounter Patient Instructions * Patient Instructions* Vira Josue PA - 03/17/2019 1:45 PM SR. DIRECTOR PRODUCT MANAGEMENT Patient Education Oral Mucositis WHAT YOU NEED [...] You cannot eat or drink. ?? 2017 [employer] Information is for End User's use only and may not be sold, redistributed or otherwise used for commercial purposes. All illustrations and images included in CareNotes?? are the copyrighted property of [employer]. or [employer]. The above information is an educational guidance counselor only. It is not intended as medical advice for individual conditions or treatments. Talk to your doctor, nurse or pharmacist before following any medical regimen to see if it is safe and effective for you. . DIRECTOR PRODUCT MANAGEMENT documented in this encounter Ordered Prescriptions Prescription Sig Dispense Quantity Refills Last Filled Start Date End Date al & mag hydroxide simethicone-diphen hydramine-lidocain e-nystatin (MAGIC MOUTHWASH) suspension 5-4-6-1Indications :Stomatitis Swish and swallow 10 mL 4 [...] IgA; Future - al & mag hydroxide rrpxqjfqdtd-uhiaobskssgjock-hwmumnbcn-nystatin (MAGIC MOUTHWASH) suspension 1-1-1-1; Swish and swallow [...] allergies listed in the above medical record . DIRECTOR PRODUCT MANAGEMENT documented in this encounter Plan of Treatment Not on file documented as of this encounter Procedures Procedure Name Priority Date/Time Associated Diagnosis Comments IMMUNOGLOBULIN M Routine 04/15/2019 2:20 PM SR. DIRECTOR PRODUCT MANAGEMENT Recurrent infections TSH+FREE T4 Routine 04/15/2019 2:20 PM SR. DIRECTOR PRODUCT MANAGEMENT Diarrhea, unspecified type CBC WITH AUTO DIFFERENTIAL Routine 04/15/2019 2:20 PM SR. DIRECTOR PRODUCT MANAGEMENT Diarrhea, unspecified type IGA Routine 04/15/2019 2:20 PM SR. DIRECTOR PRODUCT MANAGEMENT Stomatitis Recurrent infections IGG Routine 04/15/2019 2:20 PM SR. DIRECTOR PRODUCT MANAGEMENT Stomatitis Recurrent infections COMPREHENSIVE METABOLIC PANEL Routine 04/15/2019 2:20 PM SR. DIRECTOR PRODUCT MANAGEMENT Diarrhea, unspecified type documented in this encounter Results * IMMUNOGLOBULIN M (04/15/2019 2:20 PM SR. DIRECTOR PRODUCT MANAGEMENT) Immunoglobulin M, Qn, Serum 75 26 - 217 mg/dL [facility] - 01 Blood specimen (specimen) 04/15/2019 2:20 PM SR. DIRECTOR PRODUCT MANAGEMENT 04/15/2019 Narrative [facility] - 04/16/2019 7:07 AM SR. DIRECTOR PRODUCT MANAGEMENT Performed at: ?? - [facility] [address] ??[id number] Dance Therapist: Zhao Pugh PhD, Phone: ??[phone] Vira [facility] BLOOD ORDERABLES Fin al Result Performing Organization Address [facility] Co de Phone Number [facility] - * TSH+Free T4 (04/15/2019 2:20 PM SR. DIRECTOR PRODUCT MANAGEMENT) TSH 1.700 0.450 - 4.500 uIU/mL [facility] - 01 T4,Free(Direct) 0.82 0.82 - 1.77 ng/dL [facility] - 01 Blood specimen (specimen) 04/15/2019 2:20 PM SR. DIRECTOR PRODUCT MANAGEMENT 04/15/2019 Narrative [facility] - 04/16/2019 7:07 AM SR. DIRECTOR PRODUCT MANAGEMENT Performed at: ??01 - [facility] [address] ??[id number] Dance Therapist: Zhao Pugh PhD, Phone: ??[phone] Vira RUSHING LAB BLOOD ORDERABLES Fin al Result Performing Organization Address [facility] de Phone Number [facility] - * (ABNORMAL) Comprehensive metabolic panel (04/15/2019 2:20 PM SR. DIRECTOR PRODUCT MANAGEMENT) Glucose 141(H) 65 - 99 mg/dL [facility] [...] 01 Blood specimen (specimen) 04/15/2019 2:20 PM SR. DIRECTOR PRODUCT MANAGEMENT 04/15/2019 Narrative [facility] - 04/16/2019 7:07 AM SR. DIRECTOR PRODUCT MANAGEMENT Performed at: ??01 - [facility] [address] ??[id number] Dance Therapist: Zhao Pugh PhD, Phone: ??[phone] Vira RUSH[facility] BLOOD ORDERABLES Fin al Result [facility] - 01 * (ABNORMAL) CBC with auto differential (04/15/2019 2:20 PM SR. DIRECTOR PRODUCT MANAGEMENT) Pathologist [facility] WBC 8.6 3.4 - 10.8 x10E3/uL [facility] [...] 01 Blood specimen (specimen) 04/15/2019 2:20 PM SR. DIRECTOR PRODUCT MANAGEMENT 04/15/2019 Narrative [facility] - 04/16/2019 7:07 AM SR. DIRECTOR PRODUCT MANAGEMENT Performed at: ??01 - [facility] [address] ??[id number] Dance Therapist: Zhao Pugh PhD, Phone: ??[phone] Vira RUSHING [facility] BLOOD ORDERABLES Fin al Result [facility] - 01 * IgA (04/15/2019 2:20 PM SR. DIRECTOR PRODUCT MANAGEMENT) Immunoglobulin A, Qn, Serum 102 87 - 352 mg/dL [facility] - 01 Blood specimen (specimen) 04/15/2019 2:20 PM SR. DIRECTOR PRODUCT MANAGEMENT 04/15/2019 Narrative [facility] - 04/16/2019 7:07 AM SR. DIRECTOR PRODUCT MANAGEMENT Performed at: ??01 - [facility] ??[id number] Dance Therapist: Zhao Pugh PhD, Phone: ??[phone] Vira RUSHING LAB BLOOD ORDERABLES Fin al Result Performing Organization Address [facility] de Phone Number [facility] - 01 * IgG (04/15/2019 2:20 PM SR. DIRECTOR PRODUCT MANAGEMENT) Pathologist [facility] Immunoglobulin G, Qn, Serum 747 700 - 1,600 mg/dL [facility] - Blood specimen (specimen) 04/15/2019 2:20 PM SR. DIRECTOR PRODUCT MANAGEMENT 04/15/2019 Narrative [facility] - 04/16/2019 7:07 AM SR. DIRECTOR PRODUCT MANAGEMENT Performed at: ??01 - [facility] ??[id number] Dance Therapist: Zhao Pugh PhD, Phone: ??[phone] Vira RUSHING [facility] BLOOD ORDERABLES Fin al Result Performing Organization Address [facility] Phone Number [facility] - 01 documented [...] documented as of this encounter Care Teams Stave Cutting Supervisor Relationship Specialty Start Date End Date Travis Durand MD PCP - General 07/02/18 08/08/19 documented as of this encounter
--- OUTSIDE RECORDS SUMMARY | 2024-04-05 06:05 | XMS_ITS | Encounter Summary ---
Author Organization [facility] Facility Care Team Providers Care Occupational Health Physician Name Role Phone Travis Durand MD Primary Care Provider [phone] Encounter Details Date Type Department Care Team [...] on filedocumented in this encounter Care Teams Occupational Health Physician Relationship Specialty Start Date End Date Travis Durand MD PCP - General 07/02/18 08/08/19 documented as of this encounter
--- OUTSIDE RECORDS SUMMARY | 2024-04-05 06:06 | XMS_ITS | Encounter Summary ---
Author Organization [facility] Facility Care Team Providers Care Linux System Administrator Name Role Phone Travis Durand MD Primary Care Provider [phone] Ashley Lamar MD Primary Care Provider [phone] Ashley Lamar MD Primary Care Provider [phone] Travis Durand MD Primary Care Provider [phone] Ashley Lamar MD Primary Care Provider [phone] Travis Durand MD Primary Care Provider [phone] Ashley Lamar MD Primary Care Provider [phone] Travis Durand MD Primary Care Provider [phone] Ashley Lamar MD Primary Care Provider [phone] Travis Durand MD Primary Care Provider [phone] Chris Bean MD Primary Care Provider [phone] Encounter Details Date Type Department Care Team (Latest Contact Info) Description 07/27/2017 Orders Only [facility] ProviderLaquita MD [address] [place] [address] Social History Tobacco Use Types Packs/Day [...] documented as of this encounter Care Teams Linux System Administrator Relationship Specialty Start Date End Date [...] Medicine 09/16/19 05/31/22 Chris Bean MD [address] [facility] [place] [address] PCP - General Family Medicine 09/08/22 documented as of this encounter
--- OUTSIDE RECORDS SUMMARY | 2024-04-05 06:06 | XMS_ITS | Encounter Summary ---
Author Organization [facility] Facility Care Team Providers Care Acid Mixer Name Role Phone Travis Durand MD Primary Care Provider [phone] Ashley Lamar MD Primary Care Provider [phone] Ashley Lamar MD Primary Care Provider [phone] Travis Durand MD Primary Care Provider [phone] Ashley Lamar MD Primary Care Provider [phone] Travis Durand MD Primary Care Provider [phone] Ashley Lamar MD Primary Care Provider [phone] Travis Durand MD Primary Care Provider [phone] Ashley Lamar MD Primary Care Provider [phone] Travis Durand MD Primary Care Provider [phone] Chris Bean MD Primary Care Provider [phone] Encounter Details Date Type Department Care Team (Latest Contact Info) Description 07/30/2017 Orders Only [facility] ProviderLaquita MD [address] [place] [address] Social History Tobacco Use Types Packs/Day [...] documented as of this encounter Care Teams Acid Mixer Relationship Specialty Start Date End Date Travis [...] Medicine 09/16/19 05/31/22 Chris Bean MD [address] [facility] [place] [address] PCP - General Family Medicine 09/08/22 documented as of this encounter
--- OUTSIDE RECORDS SUMMARY | 2024-04-05 06:06 | XMS_ITS | Encounter Summary ---
Author Organization [facility] Facility Care Team Providers Care Twister Tender Paper Name Role Phone Travis Durand MD Primary Care Provider [phone] Ashley Lamar MD Primary Care Provider [phone] Ashley Lamar MD Primary Care Provider [phone] Travis Durand MD Primary Care Provider [phone] Ashley Lamar MD Primary Care Provider [phone] Travis Durand MD Primary Care Provider [phone] Ashley Lamar MD Primary Care Provider [phone] Travis Durand MD Primary Care Provider [phone] Ashley Lamar MD Primary Care Provider [phone] Travis Durand MD Primary Care Provider [phone] Chris Bean MD Primary Care Provider [phone] Encounter Details Date Type Department Care Team (Latest Contact Info) Description 07/20/2017 Orders Only [facility] ProviderLaquita MD [address] [place] [address] Social History Tobacco Use Types Packs/Day [...] documented as of this encounter Care Teams Twister Tender Paper Relationship Specialty Start Date End Date Travis Durand MD PCP - General 08/10/17 08/26/17 Ashley Lamar MD PCP - General 08/27/17 08/27/17 Ashley Lamar MD PCP - General 08/28/17 09/04/17 Travis Durand MD PCP - General 09/05/17 09/05/17 Ashley Lamar MD PCP - General 09/06/17 09/06/17 Travis Durand MD PCP - General 09/07/17 09/19/17 Ashley Lamar MD PCP - General 09/20/17 07/01/18 Travis uDrand MD PCP - General 07/02/18 08/08/19 Ashley Lamar MD PCP - General 08/09/19 09/15/19 Travis Durand MD PCP - General Family Medicine 09/16/19 05/31/22 Chris Bean MD [address] [facility] [place] [address] PCP - General Family Medicine 09/08/22 documented as of this encounter
--- OUTSIDE RECORDS SUMMARY | 2024-04-05 06:06 | XMS_ITS | Encounter Summary ---
Author Organization [facility] Address [address] [place] [address] Phone Care Team Providers Care Air Quality Technician Name Role Phone Ashley Lamar MD Primary Care Provider [phone] Reason for Visit * Reason Onset Date Comments work release letter needed 09/21/2017 Encounter Details Date Type Department Care Team (Late st Contact Info) Description 09/21/2017 Telephone [facility] Cardiology [facility] Medical Office Building [address] [place] [address] Rogerio Bean MD [address] [facility] [address] [place] [address] work release letter needed Social [...] on filedocumented in this encounter Care Teams Air Quality Technician Relationship Specialty Start Date End Date Ashley Lamar MD PCP - General 09/20/17 07/01/18 documented as of this encounter
--- OUTSIDE RECORDS SUMMARY | 2024-04-05 06:06 | XMS_ITS | Encounter Summary ---
Author Organization [facility] Healthcare Address [address] [place] [address] Care Team Providers Care Director Of Infection Prevention Name Role Phone Ashley Lamar MD Primary Care Provider Encounter Details Date Type Department Care Team (Latest Contact Info) Description 08/27/2017 3:44 PM CDT - 08/27/2017 11:59 PM CDT Hospital Encounter [facility] OP INTERIM [phone] Rogerio Bean MD [address] [facility] [address] [place] [address] Discharge Disposition: Discharge to home or self [...] on filedocumented in this encounter Care Teams Director Of Infection Prevention Relationship Specialty Start Date End Date Ashley Lamar MD PCP - General 08/27/17 08/27/17 documented as of this encounter
--- OUTSIDE RECORDS SUMMARY | 2024-04-05 06:06 | XMS_ITS | Encounter Summary ---
Author Organization [facility] Facility Care Team Providers Care Kraft Mill Operator Name Role Phone Travis Durand MD Primary Care Provider [phone] Ashley Lamar MD Primary Care Provider [phone] Ashley Lamar MD Primary Care Provider [phone] Travis Durand MD Primary Care Provider [phone] Ashley Lamar MD Primary Care Provider [phone] Travis Durand MD Primary Care Provider [phone] Ashley Lamar MD Primary Care Provider [phone] Travis Durand MD Primary Care Provider [phone] Ashley Lamar MD Primary Care Provider [phone] Travis Durand MD Primary Care Provider [phone] Chris Bean MD Primary Care Provider [phone] Encounter Details Date Type Department Care Team (Latest Contact Info) Description 07/28/2017 Orders Only [facility] CLINCONV ProviderLaquita MD [address] [place] [address] Social History Tobacco Use Types Packs/Day [...] documented as of this encounter Care Teams Kraft Mill Operator [...] Medicine 09/16/19 05/31/22 Chris Bean MD [address] [place] [address] PCP - General Family Medicine 09/08/22 documented as of this encounter
--- OUTSIDE RECORDS SUMMARY | 2024-04-05 06:06 | XMS_ITS | Encounter Summary ---
Author Organization [facility] Facility Care Team Providers Care Qualification Engineer Name Role Phone Travis Durand MD Primary Care Provider [phone] Encounter Details Date Type Department Care Team [...] on filedocumented in this encounter Care Teams Qualification Engineer Relationship Specialty Start Date End Date Travis Durand MD PCP - General 07/02/18 08/08/19 documented as of this encounter
--- OUTSIDE RECORDS SUMMARY | 2024-04-05 06:06 | XMS_ITS | Encounter Summary ---
Author Organization [facility] Address [address] [address] Care Team Providers Care Skating Rink Ice Maker Name Role Phone Travis Durand MD Primary Care Provider [phone] Reason for Visit * Reason Comments Thrush Med Refill Encounter Details Date Type Department Care Team (Late st Contact Info) Description 01/17/2019 9:00 AM CDT Office Visit [facility] Family Medicine [address] [place] [address] Vira Josue PA [address] [facility] [address] [address] Oral candidiasis (Primary Dx); Migraine without aura [...] 9:00 AM CDT Patient Education Oral Candidiasis AUTOMOBILE ACCESSORIES INSTALLER: Oral candidiasis , or thrush, is a [...] dentures before you gargle. Prevent oral candidiasis: [place] Star your teeth, gums, and tongue after you eat and before you go to sleep. Use a toothbrush with soft bristles. See your dentist for regular exams. Remove your dentures when you sleep, or at least 6 hours each day. Clean your dentures and soak them in denture switch cleaner. Let them air dry after soaking. Follow up with your healthcare provider as directed: Write down your questions so you remember to ask them during your visits. ?? 2017 [employer] Information is for End User's use only and may not be sold, redistributed or otherwise used for commercial purposes. All illustrations and images included in CareNotes?? are the copyrighted property of [employer]. or [employer]. The above information is an educational aide only. It is not intended as [...] cough. She conts f/u with Dr. Fritz, thread grinder tool and is due for an appointment at [...] 02/13/2020 added in this encounter Care Teams Skating Rink Ice Maker Relationship Specialty Start Date End Date Travis Durand MD PCP - General 07/02/18 08/08/19 documented as of this encounter
--- OUTSIDE RECORDS SUMMARY | 2024-04-05 06:06 | XMS_ITS | Encounter Summary ---
Author Organization [facility] Address [address] [address] Care Team Providers Care Fish Pitcher Name Role Phone Travis Durand MD Primary Care Provider [phone] Reason for Visit * Reason Onset Date Comments Illness 09/19/2018 Encounter Details Date Type Department Care Team (Late st Contact Info) Description 09/19/2018 Telephone [facility] Family Medicine [address] [place] [address] Kyara Nj MA Illness Social History Tobacco [...] on filedocumented in this encounter Care Teams Fish Pitcher Relationship Specialty Start Date End Date Travis Durand MD PCP - General 07/02/18 08/08/19 documented as of this encounter
--- OUTSIDE RECORDS SUMMARY | 2024-04-05 06:06 | XMS_ITS | Encounter Summary ---
Author Organization [facility] Healthcare Address [address] [place] [address] Care Team Providers Care Clay Miner Name Role Phone Travis Durand MD Primary Care Provider [phone] Encounter Details Date Type Department Care Team (Latest Contact Info) Description 09/05/2017 1:56 PM CDT - 09/05/2017 11:59 PM CDT Hospital Encounter [facility] OP INTERIM [phone] Lobito Bean MD [address] [facility] [address] [place] [address] Discharge Disposition: Discharge to home or self [...] agrees with it. ACC# ??Date Time ??Exam [id number] September 05, 2017 14:36:00 01224 MPI SPECT Multiple EXAMINATION: ??MYOCARDIAL IMAGING (REST [...] the Cardiovascular Division is available in the [facility] electronic medical record. Standard myocardial perfusion [...] ALFARO M.D. on Sep 05 2017 ??4:49P [id number] JAMES M.D. FINAL REPORT The radiology attending physician has personally reviewed this study, and has reviewed and/or edited this written report and agrees with it. Attending: ??TRUDY, ??LOBITO Requesting: ??TRUDY, ??LOBITO Requesting Fax: ?? Attending Fax: ?? Attending ID: ??[id number] Requesting ID: ??[id number] Report To 1 ID: ??[id number] ? Report To 1 Name: ??, ?? Report To 1 FAX: ?? NextGen Order #: ?? Procedure Note Miscellaneous, Not In File - 09/05/2017 Trudi HAUSER M.D. FINAL REPORT The radiology attending physician has personally reviewed this study, and has reviewed and/or edited this written report and agrees with it. ACC# Date Time Exam [id number] September 05, 2017 14:36:00 [id number] MPI SPECT Multiple EXAMINATION: MYOCARDIAL IMAGING (REST [...] the Cardiovascular Division is available in the [facility] electronic medical record. Standard myocardial perfusion [...] ALFARO M.D. on Sep 05 2017 4:49P [id number] JAMES M.D. FINAL REPORT The radiology attending physician has personally reviewed this study, and has reviewed and/or edited this written report and agrees with it. Attending: LOBITO BEAN Requesting: LOBITO BEAN Requesting Fax: Attending Fax: Attending ID: [id number] Requesting ID: [id number] Report To 1 ID: [id number] Report To 1 Name: , Report To 1 FAX: NextGen Order #: us Lobito Bean MD IMG NM PROCEDURES Final Res ult * STRESS ECHOCARDIOGRAPHY (09/05/2017) Anatomical Region Laterality Modality N/A Nuclear Medicine us Provider Scanning IMG NM PROCEDURES Final Result documented in this encounter Visit Diagnoses Not on filedocumented in this encounter Care Teams Clay Miner Relationship Specialty Start Date End Date Travis Durand MD PCP - General 09/05/17 09/05/17 documented as of this encounter
--- OUTSIDE RECORDS SUMMARY | 2024-04-05 06:06 | XMS_ITS | Encounter Summary ---
Author Organization [facility] Facility Care Team Providers Care Casing Material Weigher Name Role Phone Travis Durand MD Primary Care Provider [phone] Ashley Lamar MD Primary Care Provider [phone] Ashley Lamar MD Primary Care Provider [phone] Travis Durand MD Primary Care Provider [phone] Ashley Lamar MD Primary Care Provider [phone] Travis Durand MD Primary Care Provider [phone] Ashley Lamar MD Primary Care Provider [phone] Travis Durand MD Primary Care Provider [phone] Ashley Lamar MD Primary Care Provider [phone] Travis Durand MD Primary Care Provider [phone] Chris Bean MD Primary Care Provider [phone] Encounter Details Date Type Department Care Team (Latest Contact Info) Description 07/19/2017 Orders Only [facility] CLINCONV ProviderLaquita MD [address] [place] [address] Social History Tobacco Use Types Packs/Day [...] documented as of this encounter Care Teams Casing Material Weigher Relationship Specialty Start Date End Date Travis [...] PCP - General Family Medicine 09/16/19 05/31/22 Chirs Bean MD [address] [address] PCP - General Family Medicine 09/08/22 documented as of this encounter
--- OUTSIDE RECORDS SUMMARY | 2024-04-05 06:06 | XMS_ITS | Encounter Summary ---
Author Organization [facility] Healthcare Address [address] [place] [address] Care Team Providers Care Security Orderly Name Role Phone Unavailable Primary Care Provider Unavailabl e Encounter Details Date Type Department Care Team (Latest Contact Info) Description 07/27/2017 9:38 AM CDT Hospital Encounter [facility] OP Travis Durand MD [address] [place] [address] Syncope and collapse; Transient global amnesia; Tachycardia [...] flow noted bilateral vertebral arteries. NTS Job: [id number] Dictated By: Kenn Love MD Dictated For: [...] flow noted bilateral vertebral arteries. NTS Job: [id number] Dictated By: Kenn Love MD Dictated For: [...] AM T: ??07/27/2017 10:06 AM Report ID: [id number] Reading Location: ??[id number] [EOD] Narrative 07/27/2017 10:09 [...] AM Ismael Devi M.D. AB: Report ID: [id number] Reading Location: [place] [address] [EOD] Travis Durand MD IMG CT PROCEDURES Final Result documented in this encounter Visit Diagnoses Diagnosis Syncope and collapse Transient global amnesia Tachycardia Unspecified tachycardia documented in this encounter
--- OUTSIDE RECORDS SUMMARY | 2024-04-05 06:06 | XMS_ITS | Encounter Summary ---
Author Organization [facility] Facility Care Team Providers Care Teletypist Name Role Phone Travis Durand MD Primary Care Provider [phone] Ashley Lamar MD Primary Care Provider [phone] Ashley Lamar MD Primary Care Provider [phone] Travis Durand MD Primary Care Provider [phone] Ashley Lamar MD Primary Care Provider [phone] Travis Durand MD Primary Care Provider [phone] Ashley Lamar MD Primary Care Provider [phone] Travis Durand MD Primary Care Provider [phone] Ashley Lamar MD Primary Care Provider [phone] Travis Durand MD Primary Care Provider [phone] Chris Bean MD Primary Care Provider [phone] Encounter Details Date Type Department Care Team (Latest Contact Info) Description 08/07/2017 Orders Only [facility] CLINCONV ProviderLaquita MD [address] [place] [address] Social History Tobacco Use Types Packs/Day [...] documented as of this encounter Care Teams Teletypist Relationship Specialty Start Date End Date Travis [...] Medicine 09/16/19 05/31/22 Chris Bean MD [address] [place] [address] PCP - General Family Medicine 09/08/22 documented as of this encounter
--- OUTSIDE RECORDS SUMMARY | 2024-04-05 06:06 | XMS_ITS | Encounter Summary ---
Author Organization [facility] Healthcare Address [address] [place] [address] Care Team Providers Care Mid Level Net Developer Name Role Phone Travis Durand MD Primary Care Provider [phone] Reason for Referral * Diagnostic Imaging (Routine) - Closed Specialty Diagnoses / Procedures Referred By Contac t Referred To Contact Radiology Diagnoses Chest tightness Procedures CT Heart Morphology And Coronary Arteries W Contrast Rogerio Bean MD Phone: tel: fax: [address] [address] Referral ID Status Reason Start Date Expiration Date Visits Re quested Visits Authorized [id number] Closed 09/13/2017 04/02/2019 1 1 Reason for Visit * Diagnostic Imaging (Routine) - Closed Specialty Diagnoses / Procedures Referred By Contac t Referred To Contact Radiology Diagnoses Chest tightness Procedures CT Heart Morphology And Coronary Arteries W Contrast Rogerio Bean MD Phone: tel: fax: [address] [address] Referral ID Status Reason Start Date Expiration Date Visits Re quested Visits Authorized [id number] Closed 09/13/2017 04/02/2019 1 1 Encounter Details Date Type Department Care Team (Latest Contact Info) Description 09/19/2017 9:55 AM CDT - 09/19/2017 11:59 PM CDT Hospital Encounter [facility] Radiology [address] [facility] [place] [address] Rogerio Bean MD [address] [place] [address] Chest tightness Discharge Disposition: Discharge to home [...] Creatinine POC <0.5(L) 0.6 - 1.1 mg/dL [facility] Blood specimen (specimen) 09/19/2017 10:47 AM CDT 09/19/2017 10:47 AM CDT Narrative [facility] - 09/19/2017 12:10 PM CDT Rogerio Bean MD POINT OF CARE TEST ORDERABL ES Final Result [facility] [address] [facility] Department [place] [address] documented in this encounter Visit Diagnoses Diagnosis [...] 18 documented in this encounter Care Teams Mid Level Net Developer Relationship Specialty Start Date End Date Travis Durand MD PCP - General 09/07/17 09/19/17 documented as of this encounter
--- OUTSIDE RECORDS SUMMARY | 2024-04-05 06:06 | XMS_ITS | Encounter Summary ---
Author Organization [facility] Healthcare Address [address] [place] [address] Care Team Providers Care Dredge Runner Name Role Phone Travis Durand MD Primary Care Provider [phone] Encounter Details Date Type Department Care Team (Late st Contact Info) Description 07/02/2018 6:03 AM CDT - 07/02/2018 12:00 PM CDT Hospital Encounter [facility] OP INTERIM Vadim Matthew MD [address] [facility] [place] [address] Discharge Disposition: Discharge to home or self [...] which was abnormal. ??Was brought to the bottle labeler for elective cardiac catheterization for definitive diagnosis of coronary artery disease. TECHNIQUE: ??After informed consent was obtained from the patient, the patient was brought to the cardiac catheterization lab, placed on the bottle labeler table, prepped and draped in the usual sterile fashion. ??A 4-Mongolian sheath was inserted in the left common femoral artery using modified Seldinger technique. ??The sheath was flushed. ??Through the sheath, a 4-Mongolian JL4 catheter was inserted, advanced into the left coronary artery. ??Left coronary artery angiogram was obtained. ??The catheter was exchanged over the guidewire and a 4-Mongolian JR4 catheter was advanced to the right coronary artery. ??Right coronary artery angiogram was obtained. ??The catheter was exchanged over the guidewire, and a 4-Mongolian pigtail catheter advanced to the left ventricle; left ventricular angiogram was obtained. ??The catheter then pulled. ??The sheath was pulled, with pressure for hemostasis. ??The patient tolerated the procedure well, with no complications, and was taken from the bottle labeler to room in stable condition with stable vital signs. JOURNEYMAN SHEET METAL WORKER: ??Vadim Matthew MD. COMPLICATIONS: ??None. BLOOD LOSS: [...] ??Medical treatment, risk factor modification. NTS Job: [id number] Dictated By: Vadim Matthew MD Dictated For: [...] test which wasabnormal. Was brought to the bottle labeler for elective cardiaccatheterization for definitive diagnosis of coronary artery disease. TECHNIQUE: After informed consent was obtained from the patient, thepatient was brought to the cardiac catheterization lab, placed on the cathlab table, prepped and draped in the usual sterile fashion. A 4-Frenchsheath was inserted in the left common femoral artery using modifiedSeldinger technique. The sheath was flushed. Through the sheath, a4-Mongolian JL4 catheter was inserted, advanced into the left coronaryartery. Left coronary artery angiogram was obtained. The catheter wasexchanged over the guidewire and a 4-Mongolian JR4 catheter was advanced tothe right coronary artery. Right coronary artery angiogram was obtained.The catheter was exchanged over the guidewire, and a 4-Mongolian pigtailcatheter advanced to the left ventricle; left ventricular angiogram wasobtained. The catheter then pulled. The sheath was pulled, with pressurefor hemostasis. The patient tolerated the procedure well, with nocomplications, and was taken from the bottle labeler to room in stable conditionwith stable vital signs. JOURNEYMAN SHEET METAL WORKER: Vadim Matthew MD. COMPLICATIONS: None. BLOOD LOSS: None. SEDATION: Conscious sedation using 2 mg of Versed, 25 mcg fentanyl.Starting time is 8:32 ending time is 8:44. HEMODYNAMICS: Heart rate is 95, aortic pressure is 108/76, LV kfaywidz239/4, LVEDP of 8. ANGIOGRAPHIC FINDINGS: 1. Left [...] Medical treatment, risk factor modification. NTS Job: [id number] Dictated By: Vadim Matthew MD Dictated For: Vadim Matthew MD [EOD] Vadim Matthew MD CV CARDIAC CATH PROCEDURES Fi nal Result * aPTT (07/02/2018 7:29 AM CDT) APTT 28 26 - 33 SECONDS 07/02/2018 7:45 AM CDT [facility] HISTORICAL RESULTS 07/02/2018 7:29 AM CDT 07/02/2018 7:33 AM CDT Vadim Matthew MD LAB BLOOD ORDERABLES Final Re sult [facility] HISTORICAL RESULTS * Protime-INR (07/02/2018 7:29 AM CDT) Pathologist [facility] PT 12.9 11.8 - 14.5 SECONDS 07/02/2018 7:44 AM CDT [facility] HISTORICAL RESULTS INR 0.97 07/02/2018 7:44 AM CDT [facility] HISTORICAL RESULTS Comment: Recommended Therapeutic range for Oral Anticoagulant Therapy No anti-coagulation therapy ? Normal Range: ?0.8-1.4 Anti-coagulation therapy ? Low intensity therapy ?2.0-3.0 ? High intensity therapy ?? 2.5-3.5 Critical Value ? Greater than or equal to 5.0 Patients should be monitored for serious bleeding. ?? 07/02/2018 7:29 AM CDT 07/02/2018 7:33 AM CDT Vadim Matthew MD LAB BLOOD ORDERABLES Final Re sult [facility] HISTORICAL RESULTS * (ABNORMAL) CBC with auto differential (07/02/2018 7:29 AM CDT) [facility] WBC 10.1(H) 3.8 - 9.9 X10 3/ul 07/02/2018 7:35 AM T [facility] HISTORICAL RESULTS RBC 3.86(L) 3.90 - 5.20 x10 6/ul 07/02/2018 7:35 AM T [facility] HISTORICAL RESULTS Hemoglobin 12.8 11.9 - 15.5 g/dL Hct 39.4 35.6 - 45.5 % MCV 102.1(H) 81.3 - 96.4 fl 07/02/2018 7:35 AM T [facility] HISTORICAL RESULTS MCH 33.2 27.1 - 33.3 pg 07/02/2018 7:35 AM T [facility] HISTORICAL RESULTS MCHC 32.5 32.3 - 35.7 g/dl 07/02/2018 7:35 AM T [facility] HISTORICAL RESULTS RDW 14.4 11.1 - 14.9 % 07/02/2018 7:35 AM T [facility] HISTORICAL RESULTS Plt Count 269 150 - 400 x10 3/ul 07/02/2018 7:35 AM T [facility] HISTORICAL RESULTS MPV 9.0(L) 9.1 - 12.3 fl 07/02/2018 7:35 AM T [facility] HISTORICAL RESULTS Neut % 74.0 % 07/02/2018 7:35 AM T [facility] HISTORICAL RESULTS Immature Gran % 0.4 % 9 7:35 AM T [facility] HISTORICAL RESULTS Lymph % 18.6 % Floyd % 4.9 % Eos % 1.3 % Baso % 0.8 % Absolute Neuts (auto) 7.5(H) 1.7 - 6.5 x10 3/ul Immature Gran # 0.0 0.0 - 0.1 x10 3/ul 07/02/2018 7:35 AM T [facility] HISTORICAL RESULTS Absolute Lymphs (auto) 1.9 0.8 - 3.3 x10 3/ul Absolute Monos (auto) 0.5 0.2 - 0.8 x10 3/ul Absolute Eos (auto) 0.1 0.0 - 0.5 x10 3/ul Absolute Basos (auto) 0.1 0.0 - 0.1 x10 3/ul 07/02/2018 7:35 AM T [facility] HISTORICAL RESULTS Nucleat RBC Rel Count 0.0 #/100WBC 07/02/2018 7:35 AM T [facility] HISTORICAL RESULTS Absolute Nucleated RBC 0.00 0.00 - 0.01 x10 3/ul Absolute Neutrophils 7500 200 - 8000 /ul 07/02/2018 7:35 AM T [facility] HISTORICAL RESULTS 07/02/2018 7:29 AM CDT 07/02/2018 7:33 AM CDT us Vadim Matthew MD LAB BLOOD ORDERABLES Final Re sult [facility] HISTORICAL RESULTS * (ABNORMAL) Basic metabolic panel [...] dialysis @ Est GFR (Cockcroft-G) 96 ml/MIN 07/02/2018 7:54 AM CDT [facility] HISTORICAL RESULTS Comment: Estimated GFR(Cockroft-Gault)is used to calculate patient medication dosage Calcium 8.6 8.6 - 10.3 mg/dL 07/02/2018 7:54 AM CDT [facility] HISTORICAL RESULTS 07/02/2018 7:29 AM CDT 07/02/2018 7:33 AM CDT Vadim Matthew MD LAB BLOOD ORDERABLES Final Re sult [facility] HISTORICAL RESULTS * CARDIOLOGY REPORT (07/02/2018 12:00 AM CDT) Anatomical Region Laterality Modality Other Narrative 07/02/2018 12:00 AM CDT Ordered by an unspecified provider. Historical Provider CV CARDIAC SERVICES [facility] Final Result documented in this encounter Visit Diagnoses Not on filedocumented in this encounter Care Teams Dredge Runner Relationship Specialty Start Date End Date Travis Durand MD PCP - General 07/02/18 08/08/19 documented as of this encounter
--- OUTSIDE RECORDS SUMMARY | 2024-04-05 06:06 | XMS_ITS | Encounter Summary ---
Author Organization [facility] Facility Care Team Providers Care Senior Software Quality Engineer Name Role Phone Travis Durand MD Primary Care Provider [phone] Ashley Lamar MD Primary Care Provider [phone] Ashley Lamar MD Primary Care Provider [phone] Travis Durand MD Primary Care Provider [phone] Ashley Lamar MD Primary Care Provider [phone] Travis Durand MD Primary Care Provider [phone] Ashley Lamar MD Primary Care Provider [phone] Travis Durand MD Primary Care Provider [phone] Ashley Lamar MD Primary Care Provider [phone] Travis Durand MD Primary Care Provider [phone] Chris Bean MD Primary Care Provider [phone] Encounter Details Date Type Department Care Team (Latest Contact Info) Description 07/25/2017 Orders Only [facility] CLINCONV ProviderLaquita MD [address] [place] [address] Social History Tobacco Use Types Packs/Day [...] documented as of this encounter Care Teams Senior Software Quality Engineer Relationship Specialty Start Date End Date [...] Medicine 09/16/19 05/31/22 Chris Bean MD [address] [address] PCP - General Family Medicine 09/08/22 documented as of this encounter
--- OUTSIDE RECORDS SUMMARY | 2024-04-05 06:06 | XMS_ITS | Encounter Summary ---
Author Organization [facility] Healthcare Address [address] [place] [address] Care Team Providers Care Technology Project Manager Name Role Phone Travis Durand MD Primary Care Provider [phone] Ashley Lamar MD Primary Care Provider [phone] Encounter Details Date Type Department Care Team (Late st Contact Info) Description 09/17/2017 Orders Only Radiology [address] [place] [address] Ismael Tomlinson MD [facility] [address] [place] [address] Social History Tobacco Use Types Packs/Day Years [...] on filedocumented in this encounter Care Teams Technology Project Manager Relationship Specialty Start Date End Date Travis Durand MD PCP - General 09/07/17 09/19/17 Ashley Lamar MD PCP - General 09/20/17 07/01/18 documented as of this encounter
--- OUTSIDE RECORDS SUMMARY | 2024-04-05 06:06 | XMS_ITS | Encounter Summary ---
Author Organization [facility] Address [address] [place] [address] Phone Care Team Providers Care Grounds Maintenance Manager Name Role Phone Ashley Lamar MD Primary Care Provider [phone] Encounter Details Date Type Department Care Team (Late st Contact Info) Description 02/01/2018 Orders Only [facility] Cardiology [facility] Medical Office Building [address] [place] [address] Tala Rudolph, Analia Social History [...] 03/17/2019 added in this encounter Care Teams Grounds Maintenance Manager Relationship Specialty Start Date End Date Ashley Lamar MD PCP - General 09/20/17 07/01/18 documented as of this encounter
--- OUTSIDE RECORDS SUMMARY | 2024-04-05 06:08 | XMS_ITS | Encounter Summary ---
Author Organization [facility] Facility Care Team Providers Care Doctor'S Assistant Name Role Phone Travis Durand MD Primary Care Provider [phone] Ashley Lamar MD Primary Care Provider [phone] Ashley Lamar MD Primary Care Provider [phone] Travis Durand MD Primary Care Provider [phone] Ashley Lamar MD Primary Care Provider [phone] Travis Durand MD Primary Care Provider [phone] Ashley Lamar MD Primary Care Provider [phone] Travis Durand MD Primary Care Provider [phone] Ashley Lamar MD Primary Care Provider [phone] Travis Durand MD Primary Care Provider [phone] Chris Bean MD Primary Care Provider [phone] Encounter Details Date Type Department Care Team (Latest Contact Info) Description 07/16/2017 Orders Only [facility] CLINCONV ProviderLaquita MD [address] [place] [address] Social History Tobacco Use Types Packs/Day [...] documented as of this encounter Care Teams Doctor'S Assistant Relationship Specialty Start Date End Date [...] Medicine 09/16/19 05/31/22 Chris Bean MD [address] [place] [address] PCP - General Family Medicine 09/08/22 documented as of this encounter
--- OUTSIDE RECORDS SUMMARY | 2024-04-05 06:09 | XMS_ITS | Encounter Summary ---
Author Organization [facility] Healthcare Address [address] [place] [address] Care Team Providers Care Office Engineer Name Role Phone Unavailable Primary Care Provider Unavailabl e Encounter Details Date Type Department Care Team (Latest Contact Info) Description 09/10/2012 1:59 PM CDT - 09/10/2012 3:12 PM CDT Hospital Encounter [facility] Dain Lam MD [address] [place] [address] Thoracic or lumbosacral neuritis or radiculitis Social [...]
--- OUTSIDE RECORDS SUMMARY | 2024-04-05 06:09 | XMS_ITS | Encounter Summary ---
Author Organization [facility] Healthcare Address [address] [place] [address] Care Team Providers Care Audit Mgr Name Role Phone Unavailable Primary Care Provider Unavailabl e Encounter Details Date Type Department Care Team (Late st Contact Info) Description 11/19/2012 1:39 PM CDT - 11/20/2012 3:10 PM CDT Hospital Encounter [facility] Er Swapnil Gusman MD [facility] [address] [address] Displacement of lumbar intervertebral disc without myelopathy; [...] Ferrer M.D. CH: 02:52 PM 02:52 PM [facility] [EOD] Swapnil Armstrong MD IMG XR [...]
--- OUTSIDE RECORDS SUMMARY | 2024-04-05 06:09 | XMS_ITS | Encounter Summary ---
Author Organization [facility] Healthcare Address [address] [place] [address] Care Team Providers Care Commissioned Police Officer Name Role Phone Unavailable Primary Care Provider Unavailabl e Encounter Details Date Type Department Care Team (Late st Contact Info) Description 11/04/2012 1:05 PM CDT Hospital Encounter [facility] Swapnil Contreras MD [address] [facility] [address] [address] Lumbosacral spondylosis without myelopathy; Other specified pre-operative [...] Collection Type CLEAN CATCH 11/04/2012 4:[address] [facility] HISTORICAL RESULTS Ur Culture Indicated? C&S NOT INDICATED 11/04/2012 4:[address] [facility] HISTORICAL RESULTS Urine Color STRAW YELLOW 11/04/2012 4:[address] [facility] HISTORICAL RESULTS Urine Clarity HAZY CLEAR 11/04/2012 4:[address] [facility] HISTORICAL RESULTS Urine Glucose (UA) NORMAL NORMAL mg/dL 11/04/2012 4:[address] [facility] HISTORICAL RESULTS Urine Bilirubin NEGATIVE NEGATIVE mg/dl 11/04/2012 4:[address] [facility] HISTORICAL RESULTS Urine Ketones 5(H) NEGATIVE mg/dL 11/04/2012 4:[address] [facility] HISTORICAL RESULTS Ur Specific [place] 1.007 1.005 - 1.025 11/04/2012 4:[address] [facility] HISTORICAL RESULTS Urine Blood NEGATIVE NEGATIVE mg/dl 11/04/2012 4:[address] [facility] HISTORICAL RESULTS Urine pH 6.5 5.0 - 8.0 11/04/2012 4:[address] [facility] HISTORICAL RESULTS Urine Protein NEGATIVE NEGATIVE mg/dL 11/04/2012 4:[address] [facility] HISTORICAL RESULTS Urine Urobilinogen NORMAL NORMAL mg/dL 11/04/2012 4:[address] [facility] HISTORICAL RESULTS Urine Nitrite NEGATIVE NEGATIVE 11/04/2012 4:[address] [facility] HISTORICAL RESULTS Ur Leukocyte Esterase NEGATIVE NEGATIVE Liyah/ul Ur Microscopic Review Indicated or Ordered Urine RBC <1 0 - 2 /HPF Urine WBC 1 0 - 2 /HPF Ur Squamous Epith Cells Rare /HPF 11/04/2012 4:06 PM CDT 11/04/2012 4:06 PM CDT Narrative [facility] HISTORICAL RESULTS - 11/04/2012 4:15 PM CDT Collected By ra ?? 181 us Swapnil Armstrong MD LAB MICROBIOLOGY - GEN ERAL ORDERABLES Final Result [facility] HISTORICAL RESULTS * hCG, blood, quantitative (11/04/2012 [...] MD LAB BLOOD ORDERABLES F inal Result [facility] HISTORICAL RESULTS * (ABNORMAL) Protime-INR (11/04/2012 2:50 [...] ORDERABLES F inal Result Performing Organization Address [facility] Co de Phone Number [facility] HISTORICAL RESULTS * aPTT (11/04/2012 2:50 PM CDT) APTT 29 22 - 38 SECONDS 11/04/2012 2:50 PM CDT 11/04/2012 3:40 PM CDT Swapnil Armstrong MD LAB BLOOD ORDERABLES F inal Result Performing Organization Address [facility] Phone Number [facility] HISTORICAL RESULTS * (ABNORMAL) Hemogram with manual differential (11/04/2012 2:50 PM CDT) Pathologist [facility] WBC 6.2 4.6 - 10.2 x10 3/ul RBC 4.05 3.76 - 4.80 x10 6/ul Hemoglobin 13.5 11.0 - 15.0 g/dl Hct 39.5 33.0 - 43.0 % MCV 97.5(H) 80.0 - 97.0 fl MCH 33.3(H) 27.0 - 31.2 pg MCHC 34.2 31.8 - 35.4 g/dl RDW 12.9 11.6 - 14.8 % Plt Count 363 124 - 400 x10 3/ul 11/04/2012 3:[address] [facility] HISTORICAL RESULTS MPV 9.8 7.4 - 10.4 fl 11/04/2012 3:47 PM [facility] HISTOR[facility] RESULTS MANUAL DIFF MANUAL DIFF - 11/04/2012 4:[address] [facility] HISTORICAL RESULTS Neutrophils % (Manual) 69 37 - 80 % 11/04/2012 4:15 PM [facility] HISTORICAL RESULTS Lymphocytes % (Manual) 22 10 - 51 % 11/04/2012 4:15 PM [facility] HISTORICAL RESULTS Monocytes % (Manual) 5 0 - 12 % 11/04/2012 4:15 PM [facility] HISTORICAL RESULTS Eosinophils % (Manual) 3 0 - 7 % 11/04/2012 4:15 PM [facility] HISTORICAL RESULTS Basophils % (Manual) 1 0 - 1 % 11/04/2012 4:[address] [facility] HISTORICAL RESULTS ABSOLUTE COUNTS ABSOLUTE COUNTS - 11/04/2012 4:15 PM [facility] HISTORICAL RESULTS Abs Neuts cells/mm3 4278 /ul 11/04/2012 4:15 PM [facility] HISTORICAL RESULTS Absolute Neutrophils 4.3 1.7 - 8.7 x10 3/ul 11/04/2012 4:15 PM [facility] HISTORICAL RESULTS Absolute Lymphocytes 1.4 0.2 - 4.6 x10 3/ul 11/04/2012 4:15 PM [facility] HISTORICAL RESULTS Absolute Monocytes 0.3 0.1 - 1.5 x10 3/ul 11/04/2012 4:15 PM [facility] HISTORICAL RESULTS Absolute Eosinophils 0.2 0.0 - 0.7 x10 3/ul 11/04/2012 4:15 PM [facility] HISTORICAL RESULTS Absolute Basophils 0.1 0.0 - 0.2 x10 3/ul 11/04/2012 4:15 PM [facility] HISTORICAL RESULTS Platelet Evaluation AGREE AGREE 11/04/2012 4:15 PM [facility] HISTORICAL RESULTS Comment:Slide review of plat elets correlates with instrument count. RBC Morphology NORMAL NORMAL 11/04/2012 2:50 PM CDT 11/04/2012 3:40 PM CDT us Swapnil Armstrong MD LAB BLOOD ORDERABLES F inal Result [facility] HISTORICAL RESULTS * Basic metabolic panel (11/04/2012 [...] MD LAB BLOOD ORDERABLES F inal Result [facility] HISTORICAL RESULTS * XR Chest Pa Lateral 2 Views (11/04/2012 12:00 AM CDT) Anatomical Region Laterality Modality Body, Chest N/A Radiographic Gabby ging 11/04/2012 Impressions 11/04/2012 2:59 PM CDT ??No radiographic evidence of acute cardiopulmonary abnormality. THIS IS AN ELECTRONICALLY VERIFIED REPORT 11/04/2012 2:56 PM: ??Danny Ferrer M.D. Danny Ferrer M.D. CH: 02:56 PM 02:56 PM [facility] [EOD] Narrative 11/04/2012 2:59 PM CDT [...] Ferrer M.D. CH:carol 02:56 PM 02:56 PM [facility] [EOD] Swapnil Armstrong MD IMG XR PROCEDURES Tanesha l Result documented in this encounter Visit Diagnoses Diagnosis Lumbosacral spondylosis without myelopathy Other specified pre-operative examination documented in this encounter
--- OUTSIDE RECORDS SUMMARY | 2024-04-05 06:09 | XMS_ITS | Encounter Summary ---
Author Organization [facility] Facility Care Team Providers Care Music Department Chair Name Role Phone Travis Durand MD Primary Care Provider [phone] Ashley Lamar MD Primary Care Provider [phone] Ashley Lamar MD Primary Care Provider [phone] Travis Durand MD Primary Care Provider [phone] Ashley Lamar MD Primary Care Provider [phone] Travis Durand MD Primary Care Provider [phone] Ashley Lamar MD Primary Care Provider [phone] Travis Durand MD Primary Care Provider [phone] Ashley Lamar MD Primary Care Provider [phone] Travis Durand MD Primary Care Provider [phone] Chris Bean MD Primary Care Provider [phone] Encounter Details Date Type Department Care Team (Latest Contact Info) Description 04/05/2016 Orders Only [facility] CLINCONV ProviderLaquita MD [address] [place] [address] Social History Tobacco Use Types Packs/Day [...] PROCEDURE - RESULT 04/21/2016 12 :00 AM SOLAR PV INSTALLER documented in this encounter Results * PROCEDURE - RESULT (04/21/2016 12:00 AM SOLAR PV INSTALLER) Narrative 04/21/2016 12:00 AM SOLAR PV INSTALLER Ordered by an unspecified provider. us Historical [...] documented as of this encounter Care Teams Music Department Chair Relationship Specialty Start Date End Date [...] Medicine 09/16/19 05/31/22 Chris Bean MD [address] [place] [address] PCP - General Family Medicine 09/08/22 documented as of this encounter
--- OUTSIDE RECORDS SUMMARY | 2024-04-05 06:09 | XMS_ITS | Encounter Summary ---
Author Organization [facility] Healthcare Address [address] [place] [address] Care Team Providers Care Retoucher Name Role Phone Unavailable Primary Care Provider Unavailabl e Encounter Details Date Type Department Care Team (Latest Contact Info) Description 11/10/2016 1:33 PM CDT Hospital Encounter [facility] Travis Durand MD [address] [place] [address] Peritoneal abscess (CMS/HCC) Social History Tobacco Use [...] 1:30 PM CDT 11/10/2016 2:50 PM CDT [facility] HISTORICAL RESULTS - 11/10/2016 1:30 PM CDT Microbiology Specimen Report (Converted) SPECIMEN [id number] ?? COLLECTED: 2016-11-10 13:30:00 TUT ?? REQ#: [id number] REQUESTING DR: Travis Durand MD ?? SOURCE: NECK ?? SP DESC: SWAB --- PROCEDURE --- ?--- RESULT --- ?? GRAM STAIN ??(Final) ??- ??Performed at [facility] ?* MODERATE RBC ?* RARE GRAM POSITIVE COCCI ?* RARE WBC CULTURE WOUND ??(Final) ??- ??Performed at [facility] ?? * Organism 1 - (MRSA)METHICILLIN-RES S.AUREUS [...] N/R=No Report ?AMANDA =Beta Lactamase - [facility] ? [address] ? [place] [address] ? Rogerio White MD Procedure Note 07/06/2018 Microbiology Specimen Report (Converted) SPECIMEN [id number] COLLECTED: 2016-11-10 13:30:00 TUT REQ#:[id number] REQUESTING DR: Travis Durand MD SOURCE: NECK SP DESC: SWAB --- PROCEDURE --- --- RESULT --- GRAM STAIN (Final) - Performed at [facility] * MODERATE RBC * RARE GRAM POSITIVE COCCI * RARE WBC CULTURE WOUND (Final) - Performed at [facility] * Organism 1 - (MRSA)METHICILLIN-RES S.AUREUS [MRSA] [...] Dependent N/R=No Report AMANDA =Beta Lactamase - [address] [address] Rogerio White MD us Travis Durand MD LAB BLOOD ORDERABLES Final Resu lt [facility] HISTORICAL RESULTS documented in this encounter Visit Diagnoses Diagnosis Peritoneal abscess (CMS/HCC) (HCC) Peritoneal abscess documented in this encounter
--- OUTSIDE RECORDS SUMMARY | 2024-04-05 06:09 | XMS_ITS | Encounter Summary ---
Author Organization [facility] Healthcare Address [address] [place] [address] Care Team Providers Care Safemaker Name Role Phone Unavailable Primary Care Provider Unavailabl e Encounter Details Date Type Department Care Team (Latest Contact Info) Description 09/05/2012 12:36 PM CDT - 09/05/2012 1:55 PM CDT Hospital Encounter [facility] Mellisa Ventura, HAND FUNNEL COATER [address] [facility] [address] [address] Degeneration of lumbar or lumbosacral [...]
--- OUTSIDE RECORDS SUMMARY | 2024-04-05 06:09 | XMS_ITS | Encounter Summary ---
Author Organization [facility] Facility Care Team Providers Care Wire Photo Operator News Name Role Phone Travis Durand MD Primary Care Provider [phone] Ashley Lamar MD Primary Care Provider [phone] Ashley Lamar MD Primary Care Provider [phone] Travis Durand MD Primary Care Provider [phone] Ashley Lamar MD Primary Care Provider [phone] Travis Durand MD Primary Care Provider +[phone] Ashley Lamar MD Primary Care Provider [phone] Travis Durand MD Primary Care Provider [phone] Ashley Lamar MD Primary Care Provider [phone] Travis Durand MD Primary Care Provider [phone] Chris Bean MD Primary Care Provider [phone] Encounter Details Date Type Department Care Team (Latest Contact Info) Description 12/27/2015 Orders Only [facility] CLINCONV ProviderLaquita MD [address] [place] [address] Social History Tobacco Use Types Packs/Day [...] documented as of this encounter Care Teams Wire Photo Operator News Relationship Specialty Start Date End Date Travis [...] Medicine 09/16/19 05/31/22 Chris Bean MD [address] [facility] [place] [address] PCP - General Family Medicine 09/08/22 documented as of this encounter
--- OUTSIDE RECORDS SUMMARY | 2024-04-05 06:09 | XMS_ITS | Encounter Summary ---
Author Organization [facility] Healthcare Address [address] [place] [address] Care Team Providers Care Property Management Accountant Name Role Phone Unavailable Primary Care Provider Unavailabl e Encounter Details Date Type Department Care Team (Latest Contact Info) Description 10/01/2012 9:58 AM CDT Hospital Encounter [facility] ER Dain Lam MD [facility] [address] Displacement of lumbar intervertebral disc without myelopathy; [...]
== END 2024-03-31 02:22 | disposition home or self-care (01) ==
PROVIDERS: Emergency Provider Student in an Organized Health Care Education/Training Program; PCP Family Medicine
DX: S52.025A Nondisplaced fracture of olecranon process without intraarticular extension of left ulna, initial encounter for closed fracture (principal); I50.9 Heart failure, unspecified; F41.9 Anxiety disorder, unspecified; F17.210 Nicotine dependence, cigarettes, uncomplicated; Z79.899 Other long term (current) drug therapy; W19.XXXA Unspecified fall, initial encounter
CPT/HCPCS: 29105; 73080; 73200; 99284; A4565; A9270

== ENCOUNTER 2024-04-26 23:56 | Emergency (ER) | payer BC, SELFPAY ==
[2024-04-27 00:13] VITALS: BP 129/90; PULSE 95; RESP 20; TEMP 36.5; O2SAT 99
--- NOTE | 2024-04-27 02:25 | PC.NURSE ---
Patient given ice pack upon request.
[2024-04-27] MEDS: oxyCODONE/ACETAMINOPHEN (*CRX) 5-325 MG TABLET 1 TABLET PO (08:35)
[2024-04-27] MEDS: DOXYCYCLINE HYCLATE 100 MG TABLET PO (08:38)
--- NOTE | 2024-04-27 08:50 | ED_ITS ---
HPI - General Adult General Chief complaint: Animal Bite Stated complaint: cat bites Time Seen by Provider: 04/27/24 07:00 History of Present Illness HPI narrative: Patient is a 49-year-old female who presents the ER with a cat bite. She was bit on the right thumb and left middle finger. She just adopted the CT from a friend and had previously been feral. It is 4-month-old and the shot status is unknown. She still has access to the can. She reports that she scared the CT and that is white bed her. Reports to 3 hours after the bite she started developing swelling and pain in the fingers. No drainage. No lymphangitic streaking. Related Data Home Medications ?Medication ?Instructions ?Recorded ?Confirmed ?Last Taken ?Type amitriptyline 25 mg tablet 25 mg PO DAILY 03/05/21 04/24/24 Unknown History furosemide 20 mg tablet 20 mg PO DAILY 03/05/21 04/24/24 Unknown History metoprolol succinate 25 mg 25 mg PO DAILY 03/05/21 04/24/24 Unknown History tablet,extended release 24 hr baclofen 10 mg tablet mg PO TID 04/10/24 04/24/24 Unknown History duloxetine 60 mg capsule,delayed mg PO ONCE 04/10/24 04/24/24 Unknown History release topiramate 100 mg tablet mg PO DAILY 04/10/24 04/24/24 Unknown History Allergies Allergy/AdvReac Type Severity Reaction Status Date / Time Penicillins Allergy Unknown Rash Verified 04/27/24 00:18 Review of Systems Constitutional: Constitutional: Reports no additional constitutional complaints Cardiovascular: Cardiovascular: Reports no additional cardiovascular complaints Respiratory: Respiratory: Reports no additional respiratory complaints Integumentary/Breasts: Skin/Breast: Reports system reviewed and no additional complaints, except as docu FOR[facility]LY [facility] Past Medical History Medical History Chronic headaches CHF (congestive heart failure) Anxiety Allergies Surgical History Surgical History S/P diskectomy Social History Social History (Updated 04/24/24 @ 10:26 by Cece Samson CMA) Smoking status: Current every day smoker Tobacco type: cigarettes Alcohol intake: current Substance use: never Substance use type: does not use Current Housing: Decline to Answer Concerned About Future Housing: Decline to Answer Difficulty Paying Gas/Electric Bills: Decline to Answer Difficulty Paying for Meds: Decline to Answer Currently Unemployed: Decline to Answer Education: Decline to Answer Difficulty w/ Childcare or Family Care: Decline to Answer Living arrangements: with family Exam Narrative: GENERAL: Well-appearing, well-nourished, and in no acute distress. HEAD: Normocephalic, atraumatic. ENT: Mucous membranes moist. CHEST: Clear to auscultation. No respiratory distress. HEART: Regular rate and rhythm. No murmur heard. Normal peripheral pulses. EXTREMITIES: Right thumb with decreased range of motion due to pain and swelling. Left 3rd digit with swelling/warmth/pain with limited range of motion. No pain in the palm hands. SKIN: Warm, dry. No lymphangitic streaking up the arms. Cellulitis of the right thumb and left 3rd digit. NEURO: Alert and oriented x3. PSYCH: Normal mood and affect. Course Course Emergency Course: No purulent drainage. Will start on doxycycline and Percocet. Strict return precautions given. Recommend patient contact animal Control regarding her animal and vaccination status. Patient not felt to be at risk of rabies as the CT was acting appropriately. It can also be observed. We will update tetanus shot. Vital Signs Vital signs: Vital Signs Temperature 97.7 F 04/27/24 00:13 Pulse Rate 95 04/27/24 00:13 Respiratory Rate 20 04/27/24 00:13 Blood Pressure 129/90 04/27/24 00:13 Pulse Oximetry 99 04/27/24 00:13 Oxygen Delivery Room Air 04/27/24 00:13 Temperature 97.7 F 04/27/24 00:13 Pulse Rate 95 04/27/24 00:13 Respiratory Rate 20 04/27/24 00:13 Blood Pressure 129/90 04/27/24 00:13 Pulse Oximetry 99 04/27/24 00:13 Oxygen Delivery Room Air 04/27/24 00:13 Medical Decision Making Vital Signs Vital Signs: Vital Signs Temperature 97.7 F 04/27/24 00:13 Pulse Rate 95 04/27/24 00:13 Respiratory Rate 20 04/27/24 00:13 Blood Pressure 129/90 04/27/24 00:13 Pulse Oximetry 99 04/27/24 00:13 Oxygen Delivery Room Air 04/27/24 00:13 Temperature 97.7 F 04/27/24 00:13 Pulse Rate 95 04/27/24 00:13 Respiratory Rate 20 04/27/24 00:13 Blood Pressure 129/90 04/27/24 00:13 Pulse Oximetry 99 04/27/24 00:13 Oxygen Delivery Room Air 04/27/24 00:13 Discharge Plan Discharge Clinical Impression: Cat bite of finger Patient Disposition: Home, Self-Care Condition: Stable Instructions: Antibiotic Form, Animal Bite (ED) Additional Instructions: Take the antibiotics as prescribed. Monitor the wound. If you have fever over 100.4? F, you have red streaking up the arm, you have pus draining from your fingers, or you have worsening pain and swelling of hands. Patient Language: Chinese Prescriptions: New doxycycline hyclate 100 mg capsule 100 mg PO BID Qty: 14 0RF oxycodone-acetaminophen [Percocet] 5-325 mg tablet 1 tablet PO Q6H PRN (Reason: pain) Qty: 14 0RF No Action amitriptyline 25 mg tablet 25 mg PO DAILY furosemide 20 mg tablet 20 mg PO DAILY metoprolol succinate 25 mg tablet extended release 24 hr 25 mg PO DAILY duloxetine 60 mg capsule,delayed release(DR/EC) PO ONCE topiramate 100 mg tablet PO DAILY baclofen 10 mg tablet PO TID fluticasone propionate [Flonase Allergy Relief] 50 mcg/actuation spray,suspension 2 spray intranasal DAILY Qty: 18.2 0RF Rx Instructions: administer into each nostril albuterol sulfate [Ventolin HFA] 90 mcg/actuation HFA aerosol inhaler 2 puff inhalation QID PRN (Reason: shortness of breath or wheezing) Qty: 8.5 0RF Zyrtec 10 mg capsule 10 mg PO DAILY PRN (Reason: allergy symptoms) Qty: 30 0RF ibuprofen 600 mg tablet 600 mg PO TID PRN (Reason: pain) Qty: 20 0RF oxycodone 5 mg tablet 5 mg PO Q8H PRN (Reason: pain) Qty: 10 0RF Follow-up/Referrals: Ladarius,Travis Hayes MD [Primary Care Provider] - 1 Week
[2024-04-27] MEDS: TETANUS,DIPHTHERIA,AC PERTUSSIS ADULT (0.5 ML) BOOSTRIX IM (09:00)
[2024-04-27 09:05] VITALS: BP 130/80; PULSE 70; RESP 18; O2SAT 97
== END 2024-04-27 09:05 | disposition home or self-care (01) ==
PROVIDERS: Emergency Provider Emergency Medicine; PCP Family Medicine
DX: S61.051A Open bite of right thumb without damage to nail, initial encounter (principal); S61.253A Open bite of left middle finger without damage to nail, initial encounter; W55.01XA Bitten by cat, initial encounter; Z23 Encounter for immunization; I50.9 Heart failure, unspecified; F17.210 Nicotine dependence, cigarettes, uncomplicated
CPT/HCPCS: 90471; 90714; 90715; 99283; A9270

== ENCOUNTER 2024-10-03 21:32 | Emergency (ER) | payer SELFPAY ==
--- NOTE | ~2024-10-03 | CT_ITS ---
History: Blunt trauma PROCEDURE: CT head without contrast. COMPARISON: 05/27/2011 TECHNIQUE: Axial imaging of the head performed from the skull base to the vertex without IV contrast. Sagittal a nd coronal reformations obtained. DLP: 681 mGy-cm FINDINGS: The ventricles are normal in size, shape and position. There is no mass, mass effect or midline shift. There is no abnormal extra-axial fluid collection or intracranial hemorrhage. Visualized paranasal sinuses are clear. The mastoid air cells are well aerated. No acute displaced fractures within the overlying cranium. Impression: No acute intracranial hemorrhage or suspicious mass effect. Reviewed, dictated and finalized at location A. Impression: No acute intracranial hemorrhage or suspicious mass effect.
--- NOTE | ~2024-10-03 | CT_ITS ---
History: Blunt trauma PROCEDURE: CT cervical spine without intravenous contrast. COMPARISON: None TECHNIQUE: Multiple contiguous axial images of the cervical spine were performed without the administration of i ntravenous contrast. DLP: 200 mGy-cm FINDINGS: Sagittal view demonstrates the cervical spine to the level of superior endplate of C7. Straightening of the normal curvature of the cervical spine is identified, likely muscular in origin. No acute fractures are present to the level of the superior endplate of C7. The bilateral lung apices are unremarkable. No soft tissue abnormality is present. The airway is patent. Impression: Straightening of the normal curvature of the cervical spine, likely muscular in origin. No acute fracture. Reviewed, dictated and finalized at location A. Impression: Straightening of the normal curvature of the cervical spine, likely muscular in origin. No acute fracture.
[2024-10-03 21:33] VITALS: BP 109/80; PULSE 88; RESP 18; TEMP 36.6; O2SAT 98
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
[2024-10-04 01:22] VITALS: BP 106/78; PULSE 76; RESP 17; O2SAT 98
[2024-10-04] MEDS: HYDROcodone/acetaminophen (*CRX) 5-325 MG TABLET 1 TAB PO (01:27)
[2024-10-04 02:12] VITALS: BP 106/78; PULSE 76; RESP 17; O2SAT 98
== END 2024-10-04 02:14 | disposition home or self-care (01) ==
PROVIDERS: Emergency Provider Emergency Medicine; PCP Family Medicine
DX: S00.83XA Contusion of other part of head, initial encounter (principal); S00.03XA Contusion of scalp, initial encounter; S10.93XA Contusion of unspecified part of neck, initial encounter; Y04.2XXA Assault by strike against or bumped into by another person, initial encounter; I50.9 Heart failure, unspecified; F41.9 Anxiety disorder, unspecified; F17.210 Nicotine dependence, cigarettes, uncomplicated
CPT/HCPCS: 70450; 70486; 72125; 99284; A9270